=== PATIENT | female | born 1945 | race Caucasian/White ===

== ENCOUNTER 2020-01-30 08:34 | Outpatient (REF) | payer MEDICARE, SELFPAY ==
[2020-01-30 10:00] LABS: INTERNATIONAL NORM RATIO 3.3 (0.9-1.1); Prothrombin Time 39.8 SEC (10.8-13.0)
== END 2020-01-30 08:35 | disposition home or self-care (01) ==
LOC: HO.LABR 08:34
PROVIDERS: PCP Internal Medicine; Visit Provider Internal Medicine
DX: E11.9 Type 2 diabetes mellitus without complications (principal); M25.569 Pain in unspecified knee
CPT/HCPCS: 36415; 85610

== ENCOUNTER 2020-02-08 10:42 | Outpatient (REF) | payer MEDICARE, SELFPAY ==
[2020-02-08 14:07] LABS: INTERNATIONAL NORM RATIO 3.7 (0.9-1.1); Prothrombin Time 44.9 SEC (10.8-13.0)
[2020-02-08 14:34] LABS: Uric Acid 4.9 mg/dL (2.4-5.7)
--- NOTE | 2020-02-08 16:23 | MHC.HEMONC ---
pt INR seen by Dr Lerner. She had me instruct pt to hold Warfarin tonight and take 5mg on weekdays and 2.5 mg on weekends. Pt is aware.
== END 2020-02-08 10:43 | disposition home or self-care (01) ==
LOC: HO.10HDL 10:42
PROVIDERS: PCP Internal Medicine; Visit Provider Internal Medicine
DX: M25.569 Pain in unspecified knee (principal); E11.9 Type 2 diabetes mellitus without complications
CPT/HCPCS: 36415; 84550; 85610

== ENCOUNTER 2020-02-21 15:31 | Outpatient (REF) | payer MEDICARE, SELFPAY ==
[2020-02-21 16:24] LABS: Prothrombin Time 48.4 SEC (10.8-13.0)
== END 2020-02-21 15:32 | disposition home or self-care (01) ==
LOC: HO.LABR 15:31
PROVIDERS: PCP Internal Medicine; Visit Provider Internal Medicine
DX: E11.9 Type 2 diabetes mellitus without complications (principal)
CPT/HCPCS: 36415; 85610

== ENCOUNTER 2020-03-27 16:45 | Outpatient (REF) | payer MEDICARE, SELFPAY ==
[2020-03-27 17:23] LABS: INTERNATIONAL NORM RATIO 1.6 (0.9-1.1); Prothrombin Time 19.3 SEC (10.8-13.0)
== END 2020-03-27 16:46 | disposition home or self-care (01) ==
LOC: HO.LABR 16:45
PROVIDERS: PCP Internal Medicine; Visit Provider Internal Medicine
DX: E11.9 Type 2 diabetes mellitus without complications (principal)
CPT/HCPCS: 36415; 85610

== ENCOUNTER → 2020-04-04 13:48 | Outpatient (BNVA) | payer MEDICARE, SELFPAY | PROVIDERS: PCP Internal Medicine; Visit Provider Internal Medicine | DX: I82.409 Acute embolism and thrombosis of unspecified deep veins of unspecified lower extremity (principal); Z51.81 Encounter for therapeutic drug level monitoring; Z79.01 Long term (current) use of anticoagulants | CPT/HCPCS: 85610; 99201; 99211 ==

== ENCOUNTER → 2020-04-11 14:01 | Outpatient (BNVA) | payer MEDICARE, SELFPAY | PROVIDERS: PCP Internal Medicine; Visit Provider Internal Medicine | DX: I82.409 Acute embolism and thrombosis of unspecified deep veins of unspecified lower extremity (principal); Z51.81 Encounter for therapeutic drug level monitoring; Z79.01 Long term (current) use of anticoagulants | CPT/HCPCS: 85610; 99211 ==

== ENCOUNTER → 2020-04-18 14:10 | Outpatient (BNVA) | payer MEDICARE, SELFPAY | PROVIDERS: PCP Internal Medicine; Visit Provider Internal Medicine | DX: I82.409 Acute embolism and thrombosis of unspecified deep veins of unspecified lower extremity (principal); Z51.81 Encounter for therapeutic drug level monitoring; Z79.01 Long term (current) use of anticoagulants | CPT/HCPCS: 85610; 99211 ==

== ENCOUNTER → 2020-04-25 14:27 | Outpatient (BNVA) | payer MEDICARE, SELFPAY | PROVIDERS: PCP Internal Medicine; Visit Provider Internal Medicine | DX: I82.409 Acute embolism and thrombosis of unspecified deep veins of unspecified lower extremity (principal); Z51.81 Encounter for therapeutic drug level monitoring; Z79.01 Long term (current) use of anticoagulants | CPT/HCPCS: 85610; 99211 ==

== ENCOUNTER → 2020-05-09 14:12 | Outpatient (BNVA) | payer MEDICARE, SELFPAY | PROVIDERS: PCP Internal Medicine; Visit Provider Internal Medicine | DX: I82.409 Acute embolism and thrombosis of unspecified deep veins of unspecified lower extremity (principal); Z79.01 Long term (current) use of anticoagulants; Z51.81 Encounter for therapeutic drug level monitoring | CPT/HCPCS: 85610; 99211 ==

== ENCOUNTER 2020-05-23 13:33 | Outpatient (REF) | payer MEDICARE, SELFPAY | END 2020-05-23 13:34 | disposition home or self-care (01) | LOC: HO.LAB 13:33 | PROVIDERS: PCP Internal Medicine; Visit Provider Internal Medicine | DX: Z20.822 Contact with and (suspected) exposure to COVID-19 (principal); I82.409 Acute embolism and thrombosis of unspecified deep veins of unspecified lower extremity; Z51.81 Encounter for therapeutic drug level monitoring; Z79.01 Long term (current) use of anticoagulants | CPT/HCPCS: 36415; 85610; 99211; C9803; U0003 ==

== ENCOUNTER → 2020-06-06 13:30 | Outpatient (BNVA) | payer MEDICARE, SELFPAY | PROVIDERS: PCP Internal Medicine; Visit Provider Internal Medicine | DX: Z95.2 Presence of prosthetic heart valve (principal); Z51.81 Encounter for therapeutic drug level monitoring; Z79.01 Long term (current) use of anticoagulants | CPT/HCPCS: 85610; 99211 ==

== ENCOUNTER → 2020-06-27 13:43 | Outpatient (BNVA) | payer MEDICARE, SELFPAY | PROVIDERS: PCP Internal Medicine; Visit Provider Internal Medicine | DX: I82.409 Acute embolism and thrombosis of unspecified deep veins of unspecified lower extremity (principal); Z51.81 Encounter for therapeutic drug level monitoring; Z79.01 Long term (current) use of anticoagulants | CPT/HCPCS: 85610; 99211 ==

== ENCOUNTER 2020-07-04 08:07 | Outpatient (REF) | payer MEDICARE, SELFPAY ==
[2020-07-04 09:05] LABS: MANUAL DIFF FLAG NO
[2020-07-04 09:14] LABS: Basophils Percent Auto 0.2 % (0-2); Eosinophils Absolute Auto 0.1 X10*3/uL (0.0-0.4); Eosinophils Percent Auto 1.3 % (0-4); Hematocrit 41.1 % (37-47); Hemoglobin 13.6 g/dl (12.0-16.0); Imm Gran Abs Auto 0.02 X10*3/uL (0.00-0.03); Imm Gran Pct Auto 0.4 % (0.0-0.4); Lymphocytes Percent Auto 21.6 % (20-40); Mean Corpuscular HGB Conc 33.1 g/dl (31.0-35.0); Mean Corpuscular Hemoglobin 34.3 pg (27.0-33.0); Mean Corpuscular Volume 103.8 fL (80-98); Mean Platelet Volume 10.1 fL (9.4-12.3); Monocytes Absolute Auto 0.2 X10*3/uL (0.1-1.2); Monocytes Percent Auto 4.7 % (2-11); Neutrophils Absolute Auto 3.2 X10*3/uL (2.0-8.3); Neutrophils Percent Auto 71.8 % (45-73); Platelet Count 183 X10*3/uL (160-400); Red Blood Count 3.96 X10*6/uL (4.20-5.50); Red Cell Distribution Width 12.6 % (11.0-16.0); White Blood Count 4.5 X10*3/uL (4.8-10.8)
[2020-07-04 09:37] LABS: Alanine Aminotransferase 18 U/L (0-31); Alkaline Phosphatase 74 U/L (39-117); Anion Gap 12 (12-20); Aspartate Amino Transferase 14 U/L (5-31); Bilirubin Total 0.3 mg/dL (0.0-1.0); Blood Urea Nitrogen 24 mg/dL (9-16); Calcium 9.1 mg/dL (8.4-10.2); Carbon Dioxide 29 mmol/L (22-29); Chloride 105 mmol/L (96-108); Cholesterol 222 mg/dL; Estimated Glomerular Filt Rate 58; Glucose Fasting 128 mg/dL (60-99); HDL Cholesterol 64 mg/dL; LDL Cholesterol Calculated 130 mg/dl; Potassium 4.4 mmol/L (3.3-5.1); Sodium 142 mmol/L (135-145); Total Protein 6.7 g/dL (6.5-8.0); Triglycerides 144 mg/dL
== END 2020-07-04 08:08 | disposition home or self-care (01) ==
LOC: HO.LAB 08:07
PROVIDERS: PCP Internal Medicine; Visit Provider Internal Medicine
DX: Z00.00 Encounter for general adult medical examination without abnormal findings (principal); E11.9 Type 2 diabetes mellitus without complications; I82.409 Acute embolism and thrombosis of unspecified deep veins of unspecified lower extremity; Z51.81 Encounter for therapeutic drug level monitoring; Z79.01 Long term (current) use of anticoagulants
CPT/HCPCS: 36415; 80053; 80061; 85025; 85610; 99211

== ENCOUNTER → 2020-07-18 13:38 | Outpatient (BNVA) | payer MEDICARE, SELFPAY | PROVIDERS: PCP Internal Medicine; Visit Provider Internal Medicine | DX: I82.409 Acute embolism and thrombosis of unspecified deep veins of unspecified lower extremity (principal); Z51.81 Encounter for therapeutic drug level monitoring; Z79.01 Long term (current) use of anticoagulants | CPT/HCPCS: 85610; 99211 ==

== ENCOUNTER → 2020-08-01 13:20 | Outpatient (BNVA) | payer MEDICARE, SELFPAY | PROVIDERS: PCP Internal Medicine; Visit Provider Internal Medicine | DX: I82.409 Acute embolism and thrombosis of unspecified deep veins of unspecified lower extremity (principal); Z51.81 Encounter for therapeutic drug level monitoring; Z79.01 Long term (current) use of anticoagulants | CPT/HCPCS: 85610; 99211 ==

== ENCOUNTER → 2020-08-29 13:14 | Outpatient (BNVA) | payer MEDICARE, SELFPAY | PROVIDERS: PCP Internal Medicine; Visit Provider Internal Medicine | DX: I82.409 Acute embolism and thrombosis of unspecified deep veins of unspecified lower extremity (principal); Z51.81 Encounter for therapeutic drug level monitoring; Z79.01 Long term (current) use of anticoagulants | CPT/HCPCS: 85610; 99211 ==

== ENCOUNTER → 2020-09-12 13:28 | Outpatient (BNVA) | payer MEDICARE, SELFPAY | PROVIDERS: PCP Internal Medicine; Visit Provider Internal Medicine | DX: I82.409 Acute embolism and thrombosis of unspecified deep veins of unspecified lower extremity (principal); Z51.81 Encounter for therapeutic drug level monitoring; Z79.01 Long term (current) use of anticoagulants | CPT/HCPCS: 85610; 99211 ==

== ENCOUNTER → 2020-09-19 13:20 | Outpatient (BNVA) | payer MEDICARE, SELFPAY | PROVIDERS: PCP Internal Medicine; Visit Provider Internal Medicine | DX: I82.409 Acute embolism and thrombosis of unspecified deep veins of unspecified lower extremity (principal); Z51.81 Encounter for therapeutic drug level monitoring; Z79.01 Long term (current) use of anticoagulants | CPT/HCPCS: 85610; 99211 ==

== ENCOUNTER 2020-09-29 20:13 | Emergency (ER) | payer MEDICARE, SELFPAY ==
--- NOTE | ~2020-09-29 | CT_ITS ---
EXAMINATION: CT HEAD WITHOUT CONTRAST CLINICAL INFORMATION: Fall, hit head. On Coumadin. COMPARISON: CT head 08/25/2011 TECHNIQUE: Contiguous axial imaging was performed from the skull base to vertex without intravenous administration of contrast. This CT examination was performed using dose optimization techniques as appropriate, variously including the following: *Automated exposure control *Adjustment of mA and/or kV according to patient size (this includes techniques or standardized protocols for targeted exams where dose is matched to indication/reason for exam; i.e. extremities or head) *Use of iterative reconstruction technique DLP: 731 mGy-cm FINDINGS: There is no evidence of acute intracranial hemorrhage or territorial infarction. No abnormal mass effect or midline shift is seen. [place] to white matter differentiation is well preserved. No extra-axial fluid collections are identified. Mild patchy deep white matter hypodensities suggesting chronic microangiopathic changes. Mild cerebral volume loss. No acute calvarial fracture.. Small left maxillary sinus fluid/mucosal thickening. The mastoid air cells and remainder of the visualized portions of the paranasal sinuses are well aerated. CT/CT head/brain wo con IMPRESSION: No CT evidence acute intracranial pathology. Small left maxillary sinus fluid/mucosal thickening. Chronic changes, described above.
[2020-09-29 20:19] VITALS: BMI 36.2
[2020-09-29 20:27] VITALS: BP 190/77; PULSE 83; RESP 16; TEMP 37.1; O2SAT 96
--- NOTE | 2020-09-29 20:38 | ED_ITS ---
HPI - Fall General Chief Complaint: Fall Stated Complaint: FALL,+THINNERS,+COLLAR,LAC TO NOSE,HEMATOMA HEAD Time Seen by Provider: 09/29/20 20:38 Source: patient, EMS, RN notes reviewed and old records reviewed Mode of arrival: ambulatory Limitations: no limitations Related Data Home Medications Medication Instructions Recorded Confirmed cyanocobalamin (vitamin B-12) 1,000 mcg PO DAILY 02/03/20 09/12/20 1,000 mcg capsule multivitamin 1 tab PO DAILY 02/03/20 09/12/20 flu vacc [id number](65yr up)-PF 240 ml IM 04/04/20 09/12/20 mcg/0.7 mL intramuscular syringe Previous Rx's Medication Instructions Recorded lancing device #1 ea 02/10/20 ammonium lactate 12 % topical cream 1 applic TOPICAL BID #140 g 03/08/20 amlodipine 2.5 mg tablet 2.5 mg PO DAILY #90 tab 03/16/20 atorvastatin 40 mg tablet 40 mg PO DAILY #90 tab 03/16/20 furosemide 20 mg tablet 20 mg PO DAILY #90 tab 03/16/20 lisinopril 40 mg tablet 40 mg PO DAILY #90 tab 03/16/20 warfarin 1 mg tablet 1 mg PO DAILY #90 tab 04/11/20 phenytoin sodium extended 100 mg 300 mg PO BID #360 cap 05/03/20 capsule warfarin 5 mg PO DAILY #90 tab 06/22/20 clotrimazole-betamethasone 1 1 appl TOPICAL BID 14 Days #45 g 07/03/20 %-0.05 % topical cream glipizide 5 mg tablet 5 mg PO DAILY #90 tab 07/03/20 blood-glucose meter #1 ea 08/06/20 lancets #100 ea 08/06/20 cephalexin 250 mg capsule 250 mg PO Q6H #20 cap 09/11/20 Allergies Allergy/AdvReac Type Severity Reaction Status Date / Time shrimp [SHRIMP] Allergy Mild HIVES Verified 09/19/20 13:27 No Known Drug Allergies Allergy no Verified 09/19/20 13:27 allergies Review of Systems Review of Systems: Constitutional : No Weight loss, No Fever, No Chills, No Night Sweats, No Fatigue, No Malaise ENT/Mouth : No Hearing loss, No Ear Pain, No Nasal Congestion, No Sinus Pain, No Hoarseness, No sore throat, No Rhinorrhea, No Swallowing Difficulty, nose pain Eyes: No Eye Pain, No Swelling, No Redness, No Foreign Body, No Discharge, No Vision Changes Cardiovascular : No Chest Pain, No SOB, No Dyspnea on Exertion, No Orthopnea, No Edema, No Palpitations Respiratory : No Cough, No Sputum, No Wheezing, No Smoke Exposure, No Dyspnea Gastrointestinal : No Nausea, No Vomiting, No Diarrhea, No Constipation, No abdo alayna Pain, No Hematochezia, No Melena Genitourinary : no irregular bleeding, No Dysuria, No Urinary Frequency, No Hematuria, No Urinary Incontinence, No Urgency, No Flank Pain, No Urinary Flow Changes, No Hesitancy Musculoskeletal : No joint pain, No Myalgias, No Joint Swelling Skin : No Skin Lesions, No rash Neuro : No Weakness, No Numbness, No Paresthesias, No Loss of Consciousness, No Dizziness, No Headache Psych : No Anxiety/Panic, No Depression, No SI/HI/AH/VH, No Social Issues, Heme/Lymph: No Bruising, No Bleeding,No Lymphadenopathy Endocrine : No Polyuria, No Polydipsia, No Temperature Intolerance Yes all other systems are reviewed and are negative PMFSH Past Medical History Surgical History History of appendectomy History of cholecystectomy History of lumpectomy of right breast Family History Family History Father Asthma Mother Diabetes Hypertension Colon cancer Social History Social History Alcohol intake: never Patient Tobacco Use Status: Never used Tobacco Use of substances other than those prescribed or required for medical reasons: No Advance Directives: Yes Advance Directives on File: Yes Advance Directives Date on File: 02/08/20 Physical Exam Vital Signs: Vital Signs: Last Vital Signs Temp 98.7 F 09/29/20 20:27 Pulse 78 09/29/20 21:20 Resp 19 09/29/20 21:20 BP 179/65 H 09/29/20 21:20 Pulse Ox 97 09/29/20 21:20 Body Mass Index 36.2 Const: General: healthy appearing, no acute distress and well developed Nutritional Appearance: well nourished Orientation/consciousness: patient oriented x3 HENMT: Head: Yes normal to inspection and Yes other Head images: 1. Bruise 2. Bruise Neck: Neck: Yes normal visual inspection, Yes full ROM and Yes trachea midline Thyroid: Thyroid normal Resp: Auscultation: clear to auscultation bilaterally Cardio: Rate: regular rate Rhythm: regular rhythm GI: Inspection: Yes normal to inspection and No distended Palpation (GI): No hepatosplenomegaly present Auscultation: normal bowel sounds Skin: General skin exam: elasticity normal, turgor normal and dry skin Neuro: General: patient oriented x3 Course Course Course Narrative: 74-year-old female here today after sustaining a fall. Patient reports that she tripped when walking into IM has seen all today. She states that her foot gets stuck on the floor and she fell forward. Patient hit her nose, bridge of her nose and her for her. She also script her knee. Patient reports that she is on warfarin denies any dizziness, syncope, presyn cope, CP, PND. Denies any other symptoms. Patient was ambulated in the ER and is able to ambulated with steady gait, denies any dizziness. Neuro is intact. Will do CT of the head to rule out any bleed, as patient is on Coumadin. Reevaluation(s) Reevaluation #1: CT scan negative for any abnormal findings. Patient denies any pain, discomfort, dizziness, weakness. Neuro's are intact. I will send her home to follow-up with her PCP. Patient was instructed to monitor herself for any symptoms of concussion. MDM - Fall Lab Data Labs: Lab Results 09/29/20 Range/Units 21:22 Urine Color YELLOW Urine Appearance CLEAR Urine pH 6.5 (5.0-8.0) Ur Specific [place] 1.010 (1.005-1.025) Urine Protein NEG (NEG-TRACE) MG/DL Urine Glucose (UA) NEG (NEG) MG/DL Urine Ketones NEG (NEG) MG/DL Urine Blood 2+ H (NEG) Urine Nitrite NEG (NEG) Ur Leukocyte Esterase NEG (NEG) Urine RBC 10-14 H (0) /HPF Urine WBC 0-2 (0-4) /HPF Ur Squamous Epith Cells TRACE /LPF Urine Bacteria NONE /LPF Discharge Plan Discharge Clinical Impression: Fall, Current use of anticoagulant therapy Knee pain Qualifiers: Chronicity: acute Laterality: right Qualified Code(s): M25.561 - Pain in right knee Patient Disposition: Home, Self-Care Instructions: Fall Prevention (ED) Additional Instructions: You were seen here today after sustaining fall. You hit to head and sustained small bruise. Your CT scan was negative for any abnormal findings. Please follow-up with your primary care doctor in 2-3 days. Monitor yourself for any signs and symptoms of concussion. If you experience any symptoms of dizziness, weakness, blurry vision or headaches please return to emergency department. You may return to emergency department if you experience any additional concerning symptoms. Please take Tylenol for pain and you may apply ice for the next 72 hours. Prescriptions: No Action (DME) lancing device Misc See Rx Instructions .ROUTE .MEDSUPPLY Qty: 1 RF: 8 ammonium lactate 12 % cream 1 applic topical BID Qty: 140 RF: 6 atorvastatin 40 mg tablet 40 mg PO DAILY Qty: 90 RF: 8 lisinopril 40 mg tablet 40 mg PO DAILY Qty: 90 RF: 8 amlodipine 2.5 mg tablet 2.5 mg PO DAILY Qty: 90 RF: 8 furosemide 20 mg tablet 20 mg PO DAILY Qty: 90 RF: 8 phenytoin sodium extended 100 mg capsule 300 mg PO BID Qty: 360 RF: 8 warfarin 5 mg tablet 5 mg PO DAILY Qty: 90 RF: 3 (DME) blood-glucose meter Misc See Rx Instructions .ROUTE .MEDSUPPLY Qty: 1 RF: 0 (DME) lancets [Accu-Chek Fastclix Lancet Drum] Misc See Rx Instructions .ROUTE .MEDSUPPLY Qty: 100 RF: 8 cephalexin 250 mg capsule 250 mg PO Q6H Qty: 20 RF: 0 multivitamin Tablet 1 tab PO DAILY RF: 0 cyanocobalamin (vitamin B-12) 1,000 mcg capsule 1,000 mcg PO DAILY RF: 0 clotrimazole-betamethasone 1-0.05 % cream 1 appl topical BID 14 Days Qty: 45 RF: 0 glipizide 5 mg tablet 5 mg PO DAILY Qty: 90 RF: 8 Fluzone HighDose Quad 20-21 PF 240 mcg/0.7 mL syringe IM RF: 0 warfarin 1 mg tablet 1 mg PO DAILY Qty: 90 RF: 0 Stand Alone Forms: Work/School Release Interventions: ED Discharge Assessment Last Done: 09/29/20 23:22 Discharge Date/Time: 09/29/20 23:24
[2020-09-29 21:20] VITALS: BP 179/65; PULSE 78; RESP 19; O2SAT 97
[2020-09-29 21:35] LABS: Glucose Urine UA NEG (NEG); Leukocyte Esterase Urine NEG (NEG); Nitrite Urine NEG (NEG); PH 6.5 (5.0-8.0); Urine Blood 2+ (NEG); Urine Ketones NEG (NEG); Urine Protein NEG (NEG-TRACE)
[2020-09-29 21:43] LABS: Appearance Urine CLEAR; Color Urine YELLOW
[2020-09-29 21:56] LABS: WBC Urine 0-2 /HPF (0-4)
[2020-09-29 21:57] LABS: Squamous Epithelial Cell Urine TRACE /LPF
== END 2020-09-29 23:24 | disposition home or self-care (01) ==
PROVIDERS: Nurse Practitioner Family; Emergency Provider Emergency Medicine; PCP Internal Medicine
DX: M25.561 Pain in right knee (principal); G44.309 Post-traumatic headache, unspecified, not intractable; Z79.01 Long term (current) use of anticoagulants; Z79.899 Other long term (current) drug therapy
CPT/HCPCS: 70450; 81001; 99284

== ENCOUNTER → 2020-10-17 12:47 | Outpatient (BNVA) | payer MEDICARE, SELFPAY | PROVIDERS: PCP Internal Medicine; Visit Provider Internal Medicine | DX: I82.409 Acute embolism and thrombosis of unspecified deep veins of unspecified lower extremity (principal); Z51.81 Encounter for therapeutic drug level monitoring; Z79.01 Long term (current) use of anticoagulants | CPT/HCPCS: 85610; 99211 ==

== ENCOUNTER → 2020-11-14 13:03 | Outpatient (BNVA) | payer MEDICARE, SELFPAY | PROVIDERS: PCP Internal Medicine; Visit Provider Internal Medicine | DX: I82.409 Acute embolism and thrombosis of unspecified deep veins of unspecified lower extremity (principal); Z51.81 Encounter for therapeutic drug level monitoring; Z79.01 Long term (current) use of anticoagulants | CPT/HCPCS: 85610; 99211 ==

== ENCOUNTER → 2020-12-05 13:03 | Outpatient (BNVA) | payer MEDICARE, SELFPAY | PROVIDERS: PCP Internal Medicine; Visit Provider Internal Medicine | DX: I82.409 Acute embolism and thrombosis of unspecified deep veins of unspecified lower extremity (principal); Z51.81 Encounter for therapeutic drug level monitoring; Z79.01 Long term (current) use of anticoagulants | CPT/HCPCS: 85610; 99211 ==

== ENCOUNTER → 2021-01-02 13:02 | Outpatient (BNVA) | payer MEDICARE, SELFPAY | PROVIDERS: PCP Internal Medicine; Visit Provider Internal Medicine | DX: I82.409 Acute embolism and thrombosis of unspecified deep veins of unspecified lower extremity (principal); Z51.81 Encounter for therapeutic drug level monitoring; Z79.01 Long term (current) use of anticoagulants | CPT/HCPCS: 85610; 99211 ==

== ENCOUNTER → 2021-01-16 11:05 | Outpatient (BNVA) | payer MEDICARE, SELFPAY | PROVIDERS: PCP Internal Medicine; Visit Provider Internal Medicine | DX: I82.409 Acute embolism and thrombosis of unspecified deep veins of unspecified lower extremity (principal); Z51.81 Encounter for therapeutic drug level monitoring; Z79.01 Long term (current) use of anticoagulants | CPT/HCPCS: 85610; 99211 ==

== ENCOUNTER 2021-01-16 11:19 | Outpatient (REF) | payer MEDICARE, SELFPAY | END 2021-01-16 11:20 | disposition home or self-care (01) | LOC: HO.LAB 11:19 | PROVIDERS: PCP Internal Medicine; Visit Provider Internal Medicine | DX: Z20.822 Contact with and (suspected) exposure to COVID-19 (principal) | CPT/HCPCS: C9803; U0003; U0005 ==

== ENCOUNTER → 2021-02-13 13:09 | Outpatient (BNVA) | payer MEDICARE, SELFPAY | PROVIDERS: PCP Internal Medicine; Visit Provider Internal Medicine | DX: I82.409 Acute embolism and thrombosis of unspecified deep veins of unspecified lower extremity (principal); Z51.81 Encounter for therapeutic drug level monitoring; Z79.01 Long term (current) use of anticoagulants | CPT/HCPCS: 85610; 99211 ==

== ENCOUNTER 2021-02-20 08:06 | Outpatient (REF) | payer MEDICARE, SELFPAY ==
[2021-02-20 08:23] LABS: MANUAL DIFF FLAG NO
[2021-02-20 08:54] LABS: Basophils Percent Auto 0.2 % (0-2); Eosinophils Absolute Auto 0.1 X10*3/uL (0.0-0.4); Eosinophils Percent Auto 1.4 % (0-4); Hematocrit 40.3 % (37-47); Hemoglobin 13.1 g/dl (12.0-16.0); Imm Gran Abs Auto 0.02 X10*3/uL (0.00-0.03); Imm Gran Pct Auto 0.5 % (0.0-0.4); Lymphocytes Absolute Auto 0.9 X10*3/uL (1.2-4.9); Lymphocytes Percent Auto 19.8 % (20-40); Mean Corpuscular HGB Conc 32.5 g/dl (31.0-35.0); Mean Corpuscular Hemoglobin 33.8 pg (27.0-33.0); Mean Corpuscular Volume 103.9 fL (80-98); Mean Platelet Volume 9.5 fL (9.4-12.3); Monocytes Absolute Auto 0.2 X10*3/uL (0.1-1.2); Monocytes Percent Auto 5.3 % (2-11); Neutrophils Absolute Auto 3.1 X10*3/uL (2.0-8.3); Neutrophils Percent Auto 72.8 % (45-73); Platelet Count 177 X10*3/uL (160-400); Red Blood Count 3.88 X10*6/uL (4.20-5.50); Red Cell Distribution Width 13.4 % (11.0-16.0); White Blood Count 4.3 X10*3/uL (4.8-10.8)
[2021-02-20 09:03] LABS: Estimated Average Glucose 105 mg/dL; Hemoglobin A1c % 5.3 %
[2021-02-20 09:17] LABS: Alanine Aminotransferase 19 U/L (0-31); Albumin Level 3.7 g/dL (3.5-5.0); Alkaline Phosphatase 73 U/L (39-117); Anion Gap 12 (12-20); Aspartate Amino Transferase 15 U/L (5-31); Bilirubin Total 0.4 mg/dL (0.0-1.0); Blood Urea Nitrogen 20 mg/dL (9-16); Calcium 8.7 mg/dL (8.4-10.2); Carbon Dioxide 29 mmol/L (22-29); Chloride 106 mmol/L (96-108); Cholesterol 185 mg/dL; Estimated Glomerular Filt Rate > 60; Glucose Fasting 118 mg/dL (60-99); HDL Cholesterol 55 mg/dL; LDL Cholesterol Calculated 113 mg/dl; Potassium 4.6 mmol/L (3.3-5.1); Sodium 142 mmol/L (135-145); Total Protein 6.2 g/dL (6.5-8.0); Triglycerides 86 mg/dL
[2021-02-20 09:36] LABS: Thyroid Stimulating Hormone 3.11 uIU/mL (0.32-4.0)
[2021-02-20 10:19] LABS: Creatinine Urine 25.94 mg/dL; Microalbum/Creatinine Ratio Ur 362.3 ug/mg cr
== END 2021-02-20 08:07 | disposition home or self-care (01) ==
LOC: HO.LAB 08:06
PROVIDERS: PCP Internal Medicine; Visit Provider Internal Medicine
DX: Z00.00 Encounter for general adult medical examination without abnormal findings (principal); E03.9 Hypothyroidism, unspecified; E11.9 Type 2 diabetes mellitus without complications
CPT/HCPCS: 36415; 80053; 80061; 82043; 83036; 84443; 85025

== ENCOUNTER → 2021-03-27 13:45 | Outpatient (BNVA) | payer MEDICARE, SELFPAY | PROVIDERS: PCP Internal Medicine; Visit Provider Internal Medicine | DX: I82.409 Acute embolism and thrombosis of unspecified deep veins of unspecified lower extremity (principal); Z51.81 Encounter for therapeutic drug level monitoring; Z79.01 Long term (current) use of anticoagulants | CPT/HCPCS: 85610; 99211 ==

== ENCOUNTER 2021-05-22 09:22 | Outpatient (REF) | payer MEDICARE, SELFPAY ==
[2021-05-22 09:42] LABS: Binax Internal Control QC Valid; Binax Now Covid-19 Ag Negative (Negative)
== END 2021-05-22 09:23 | disposition home or self-care (01) ==
LOC: HO.LAB 09:22
PROVIDERS: PCP Internal Medicine; Visit Provider Internal Medicine
DX: Z20.822 Contact with and (suspected) exposure to COVID-19 (principal)
CPT/HCPCS: C9803

== ENCOUNTER → 2021-05-28 13:09 | Outpatient (BNVA) | payer MEDICARE, SELFPAY | PROVIDERS: PCP Internal Medicine; Visit Provider Internal Medicine | DX: I82.409 Acute embolism and thrombosis of unspecified deep veins of unspecified lower extremity (principal); Z51.81 Encounter for therapeutic drug level monitoring; Z79.01 Long term (current) use of anticoagulants | CPT/HCPCS: 85610; 99211 ==

== ENCOUNTER → 2021-06-25 13:02 | Outpatient (BNVA) | payer MEDICARE, SELFPAY | PROVIDERS: PCP Internal Medicine; Visit Provider Internal Medicine | DX: I82.409 Acute embolism and thrombosis of unspecified deep veins of unspecified lower extremity (principal); Z51.81 Encounter for therapeutic drug level monitoring; Z79.01 Long term (current) use of anticoagulants | CPT/HCPCS: 85610; 99211 ==

== ENCOUNTER → 2021-07-23 12:51 | Outpatient (BNVA) | payer MEDICARE, SELFPAY | PROVIDERS: PCP Internal Medicine; Visit Provider Internal Medicine | DX: I82.409 Acute embolism and thrombosis of unspecified deep veins of unspecified lower extremity (principal); Z51.81 Encounter for therapeutic drug level monitoring; Z79.01 Long term (current) use of anticoagulants | CPT/HCPCS: 85610; 99211 ==

== ENCOUNTER → 2021-08-15 13:11 | Outpatient (BNVA) | payer MEDICARE, SELFPAY | PROVIDERS: PCP Internal Medicine; Visit Provider Internal Medicine | DX: I82.409 Acute embolism and thrombosis of unspecified deep veins of unspecified lower extremity (principal); Z79.01 Long term (current) use of anticoagulants; Z51.81 Encounter for therapeutic drug level monitoring | CPT/HCPCS: 85610; 99211 ==

== ENCOUNTER → 2021-08-22 13:24 | Outpatient (BNVA) | payer MEDICARE, SELFPAY | PROVIDERS: PCP Internal Medicine; Visit Provider Internal Medicine | DX: I82.409 Acute embolism and thrombosis of unspecified deep veins of unspecified lower extremity (principal); Z79.01 Long term (current) use of anticoagulants; Z51.81 Encounter for therapeutic drug level monitoring | CPT/HCPCS: 85610; 99211 ==

== ENCOUNTER 2021-09-02 21:04 | Emergency (ER) | payer MEDICARE, SELFPAY ==
--- NOTE | ~2021-09-02 | CT_ITS ---
EXAMINATION: CT BRAIN AND CT CERVICAL SPINE WITHOUT CONTRAST. CLINICAL INFORMATION: Status post fall. COMPARISON: CT brain 09/29/2020 TECHNIQUE: 5 mm thin axial and reformatted 2 mm thin sagittal coronal images of brain were obtained without contrast. Subsequently axial 3 mm thin and reformatted 2 mm thin sagittal coronal images of cervical spine were obtained. DLP 2287 mGy/cm. FINDINGS: Brain: There is no acute intra-axial, extra-axial bleed, masses or midline shift. There is no acute infarction evolution. There is no edema. The lateral ventricles are symmetrical in size but enlarged. There is moderate prominence of bilateral frontal cortical sulci. Bone windows reveal no calvarial abnormality. There is no scalp soft tissue abnormality. There is benign hyper ostosis frontalis interna. There is mucoperiosteal thickening of bilateral maxillary sinuses. Rest of the paranasal sinuses are well-aerated. Cervical spine: There is mild reversal of cervical lordosis. The vertebral heights and alignment is normal. There is loss of C5-C6 and C6-C7 and C7-T1 disc heights. The craniovertebral junction and the C1-C2 alignment is normal. No visible acute fracture, dislocation or subluxation seen. The prevertebral and paravertebral soft tissues are normal. There is widely patent. There is no neck mass or abnormal lymphadenopathy. Visualized bilateral parotid and submandibular glands are normal. CT/CT cervical spine wo con IMPRESSION: No acute intracranial process seen. Reversal of cervical lordosis likely spasm. There is a grade 1 anterolisthesis C5 over C6, C6 over C7 and C7 over T1 disc levels with mild degenerative disc changes and cervical spondylosis at the C5-C6 and C6-C7 disc levels.
--- NOTE | ~2021-09-02 | XR_ITS ---
EXAMINATION: XR CHEST CLINICAL INFORMATION: Fall. Fever. COMPARISON: None TECHNIQUE: Frontal view of the chest was obtained. FINDINGS: The cardiac and mediastinal contours are normal. The lungs are clear. There is no pleural effusion or pneumothorax. There are degenerative changes of the spine. XR/XR chest 1V IMPRESSION: No evidence for acute disease in the chest.
--- NOTE | ~2021-09-02 | CT_ITS ---
EXAMINATION: CT BRAIN AND CT CERVICAL SPINE WITHOUT CONTRAST. CLINICAL INFORMATION: Status post fall. COMPARISON: CT brain 09/29/2020 TECHNIQUE: 5 mm thin axial and reformatted 2 mm thin sagittal coronal images of brain were obtained without contrast. Subsequently axial 3 mm thin and reformatted 2 mm thin sagittal coronal images of cervical spine were obtained. DLP 2287 mGy/cm. FINDINGS: Brain: There is no acute intra-axial, extra-axial bleed, masses or midline shift. There is no acute infarction evolution. There is no edema. The lateral ventricles are symmetrical in size but enlarged. There is moderate prominence of bilateral frontal cortical sulci. Bone windows reveal no calvarial abnormality. There is no scalp soft tissue abnormality. There is benign hyper ostosis frontalis interna. There is mucoperiosteal thickening of bilateral maxillary sinuses. Rest of the paranasal sinuses are well-aerated. Cervical spine: There is mild reversal of cervical lordosis. The vertebral heights and alignment is normal. There is loss of C5-C6 and C6-C7 and C7-T1 disc heights. The craniovertebral junction and the C1-C2 alignment is normal. No visible acute fracture, dislocation or subluxation seen. The prevertebral and paravertebral soft tissues are normal. There is widely patent. There is no neck mass or abnormal lymphadenopathy. Visualized bilateral parotid and submandibular glands are normal. CT/CT head/brain wo con IMPRESSION: No acute intracranial process seen. Reversal of cervical lordosis likely spasm. There is a grade 1 anterolisthesis C5 over C6, C6 over C7 and C7 over T1 disc levels with mild degenerative disc changes and cervical spondylosis at the C5-C6 and C6-C7 disc levels.
[2021-09-02 21:11] VITALS: BP 130/84; PULSE 107; O2SAT 97
--- NOTE | 2021-09-02 21:15 | ED_ITS ---
HPI - Fall General Chief Complaint: Fall Stated Complaint: fall Time Seen by Provider: 09/02/21 21:14 Source: patient Mode of arrival: ambulatory Limitations: no limitations History of Present Illness HPI Narrative: Patient with protein C deficiency with history of left leg DVT on Coumadin had apparently mechanical fall at home landed on her stomach no head strike no loss of consciousness no seizures came here to be checked because of the fall also patient has slight cough since yesterday on arrival patient noticed to have temperature of 101.5 degrees saturating 95% on room air. No headache no neck pain no other body pain no chest pain or palpitation patient already has received her COVID vaccine including the booster dose Related Data Home Medications Medication Instructions Recorded Confirmed cyanocobalamin (vitamin B-12) 1,000 mcg PO DAILY 02/03/20 07/23/21 1,000 mcg capsule multivitamin 1 tab PO DAILY 02/03/20 07/23/21 Previous Rx's Medication Instructions Recorded lancing device #1 ea 02/10/20 ammonium lactate 12 % topical cream 1 applic TOPICAL BID #140 g 03/08/20 warfarin 1 mg tablet 1 mg PO DAILY #90 tab 04/11/20 blood-glucose meter #1 ea 08/06/20 lancets (Accu-Chek Fastclix Lancet #100 ea 02/11/21 Drum) furosemide 20 mg tablet 20 mg PO DAILY #90 tab 04/01/21 lisinopril 40 mg tablet 40 mg PO DAILY #90 tab 04/01/21 amlodipine 5 mg tablet 5 mg PO DAILY #90 tab 04/10/21 benzonatate 100 mg capsule 100 mg PO TID PRN #60 cap 04/11/21 clotrimazole-betamethasone 1 1 appl TOPICAL BID 14 Days #45 g 04/11/21 %-0.05 % topical cream atorvastatin 40 mg tablet 40 mg PO DAILY #90 tab 06/17/21 phenytoin sodium extended 100 mg 300 mg PO BID #360 cap 06/17/21 capsule glipizide 5 mg tablet 5 mg PO DAILY #90 tab 07/08/21 warfarin 5 mg tablet 5 mg PO DAILY #90 tab 08/02/21 benzonatate 200 mg capsule 200 mg PO TID PRN #20 cap 09/02/21 cephalexin 500 mg capsule 500 mg PO QID 10 Days #40 cap 09/02/21 doxycycline hyclate 100 mg tablet 100 mg PO BID #20 tab 09/02/21 Allergies Allergy/AdvReac Type Severity Reaction Status Date / Time shrimp [SHRIMP] Allergy Mild HIVES Verified 08/22/21 13:26 Review of Systems Review of Systems: Yes all other systems are reviewed and are negative [facility] Past Medical History Medical History Diabetes mellitus with coincident hypertension Hyperlipidemia Hypertension Surgical History History of appendectomy History of cholecystectomy History of lumpectomy of right breast Family History Family History Father Asthma Mother Diabetes Hypertension Colon cancer Other Substance use disorder Social History Social History Housing: House Alcohol intake: never Patient Tobacco Use Status: Never used Tobacco e-Cigarette/Vaping Use: Never Used Second Hand Smoke Exposure: No Advance Directives: Yes Advance Directives Information Provided: Yes Advance Directives on File: No Advance Directives Date on File: 02/08/20 service: No Current occupational status: employed Cognitive needs: No Hearing needs: No Vision needs: No Physical Exam Vital Signs: Vital Signs: Last Vital Signs Temp 101.5 F H 09/02/21 21:20 Pulse 92 09/02/21 23:40 Resp 15 09/02/21 23:40 BP 168/65 H 09/02/21 21:20 Pulse Ox 97 09/02/21 23:40 BMI result Body Mass Index 44.3 Appearance: Alert. Oriented X3. No acute distress. Eyes: No pallor HEENT: Pharynx normal. Oral Mucosa moist atraumatic normocephalic Neck: Normal inspection. Neck supple. No midline tenderness CVS: Normal heart rate and rhythm. Pulses normal. Respiratory: No respiratory distress. Equal air entry bilateral, no wheezing/rales/rhonchi Abdomen: Soft and nontender. Bowel sounds are present, no mass palpable, no CVA tenderness Skin: Skin warm and dry. Normal skin color. Normal skin turgor. Extremities: No lower extremity edema. No calf tenderness left leg chronic changes of poor circulation the left leg with dry old wound diffuse warmth of the left leg around that area with slight redness pelvis stable Neuro: Oriented X 3. No motor deficit. MDM - Fall MDM Narrative Medical decision making narrative: Patient status post mechanical fall workup negative for any acute bleed/ head injury instantly noticed to have fever lab workup showed normal WBC count normal lactic acid COVID-19 negative chest x-ray without any infiltrate has slight cellulitis of left leg patient was giving Zosyn and vancomycin in the ER will discharge patient home on doxycycline and Keflex advised patient of social distancing drink plenty of fluids and follow with PCP Lab Data Attestation: I reviewed the patient's lab results. Result diagrams: 09/02/21 22:16 09/02/21 22:16 Labs: Lab Results 09/02/21 09/02/21 09/02/21 Range/Units 22:16 22:16 22:16 WBC 6.7 (4.8-10.8) X10*3/uL RBC 3.55 L (4.20-5.50) X10*6/uL Hgb 12.0 (12.0-16.0) g/dl Hct 36.2 L (37.0-47.0) % MCV 102.0 H (80.0-98.0) fL MCH 33.8 H (27.0-33.0) pg MCHC 33.1 (31.0-35.0) g/dl RDW 12.8 (11.0-16.0) % Plt Count 134 L (160-400) X10*3/uL MPV 9.6 (9.4-12.3) fL Immature Gran % (Auto) 0.4 (0.0-0.4) % Neut % (Auto) 81.3 H (45-73) % Lymph % (Auto) 8.5 L (20-40) % [place] % (Auto) 9.6 (2-11) % Eos % (Auto) 0.1 (0-4) % Baso % (Auto) 0.1 (0-2) % Lymph # (Auto) 0.6 L (1.2-4.9) X10*3/uL [place] # (Auto) 0.6 (0.1-1.2) X10*3/uL Eos # (Auto) 0.0 (0.0-0.4) X10*3/uL Baso # (Auto) 0.0 (0.0-0.2) X10*3/uL Abs Immat Gran (auto) 0.03 (0.00-0.03) X10*3/uL Absolute Neuts (auto) 5.4 (2.0-8.3) x10*3/uL Absolute Nucleated RBC 0.000 (0.0-0.012) X10*3/uL Nucleated RBC % (auto) 0.0 (0.0-0.2) /100WBC PT 41.2 H (9.9-13.0) SEC INR 3.5 H (0.9-1.1) APTT 42.5 H (24.1-38.0) SEC Sodium 138 (135-145) mmol/L Potassium 3.9 (3.3-5.1) mmol/L Chloride 102 (96-108) mmol/L Carbon Dioxide 26 (22-29) mmol/L Anion Gap 14 (12-20) BUN 15 (9-16) mg/dL Creatinine 0.78 (0.5-1.4) mg/dL Estim Creat Clear Calc 71.1 Estimated GFR > 60 Random Glucose 129 H (60-115) mg/dL Lactic Acid (0.5-2.0) mmol/L Calcium 8.6 (8.4-10.2) mg/dL Total Bilirubin 0.4 (0.0-1.0) mg/dL AST 22 D (5-31) U/L ALT 24 (0-31) U/L Alkaline Phosphatase 60 (39-117) U/L Total Protein 6.2 L (6.5-8.0) g/dL Albumin 3.6 (3.5-5.0) g/dL Urine Color Urine Appearance Urine pH (5.0-8.0) Ur Specific [place] (1.005-1.025) Urine Protein (NEG-TRACE) MG/DL Urine Glucose (UA) (NEG) MG/DL Urine Ketones (NEG) MG/DL Urine Blood (NEG) Urine Nitrite (NEG) Ur Leukocyte Esterase (NEG) Urine RBC (0) /HPF Urine WBC (0-4) /HPF Ur Squamous Epith Cells /LPF Urine Bacteria /LPF Urine Mucus /LPF COVID-19 ([place]) (Negative) COVID-19 Clin Com 09/02/21 09/02/21 09/02/21 Range/Units 22:16 22:16 22:30 WBC (4.8-10.8) X10*3/uL RBC (4.20-5.50) X10*6/uL Hgb (12.0-16.0) g/dl Hct (37.0-47.0) % MCV (80.0-98.0) fL MCH (27.0-33.0) pg MCHC (31.0-35.0) g/dl RDW (11.0-16.0) % Plt Count (160-400) X10*3/uL MPV (9.4-12.3) fL Immature Gran % (Auto) (0.0-0.4) % Neut % (Auto) (45-73) % Lymph % (Auto) (20-40) % [place] % (Auto) (2-11) % Eos % (Auto) (0-4) % Baso % (Auto) (0-2) % Lymph # (Auto) (1.2-4.9) X10*3/uL [place] # (Auto) (0.1-1.2) X10*3/uL Eos # (Auto) (0.0-0.4) X10*3/uL Baso # (Auto) (0.0-0.2) X10*3/uL Abs Immat Gran (auto) (0.00-0.03) X10*3/uL Absolute Neuts (auto) (2.0-8.3) x10*3/uL Absolute Nucleated RBC (0.0-0.012) X10*3/uL Nucleated RBC % (auto) (0.0-0.2) /100WBC PT (9.9-13.0) SEC INR (0.9-1.1) APTT (24.1-38.0) SEC Sodium (135-145) mmol/L Potassium (3.3-5.1) mmol/L Chloride (96-108) mmol/L Carbon Dioxide (22-29) mmol/L Anion Gap (12-20) BUN (9-16) mg/dL Creatinine (0.5-1.4) mg/dL Estim Creat Clear Calc Estimated GFR Random Glucose (60-115) mg/dL Lactic Acid 1.5 (0.5-2.0) mmol/L Calcium (8.4-10.2) mg/dL Total Bilirubin (0.0-1.0) mg/dL AST (5-31) U/L ALT (0-31) U/L Alkaline Phosphatase (39-117) U/L Total Protein (6.5-8.0) g/dL Albumin (3.5-5.0) g/dL Urine Color YELLOW Urine Appearance CLEAR Urine pH 7.0 (5.0-8.0) Ur Specific [place] 1.015 (1.005-1.025) Urine Protein NEG (NEG-TRACE) MG/DL Urine Glucose (UA) NEG (NEG) MG/DL Urine Ketones NEG (NEG) MG/DL Urine Blood 2+ H (NEG) Urine Nitrite NEG (NEG) Ur Leukocyte Esterase NEG (NEG) Urine RBC 10-14 H (0) /HPF Urine WBC 1-4 (0-4) /HPF Ur Squamous Epith Cells 1+ /LPF Urine Bacteria 2+ /LPF Urine Mucus 1+ /LPF COVID-19 ([place]) Positive A (Negative) COVID-19 Clin Com See Note Discharge Plan Discharge Clinical Impression: COVID-19, Fall, Cellulitis of left leg Patient Disposition: Home, Self-Care Instructions: Cellulitis (ED), Fall Prevention (ED), COVID-19 (Coronavirus Disease 2019) (ED) Additional Instructions: Social distancing as advised Antibiotic as prescribed Tylenol for fever Cough drops as prescribed Follow with PCP or report to ER if not better or increased shortness of breath Prescriptions: New benzonatate 200 mg capsule 200 mg PO TID PRN (Reason: cough) Qty: 20 0RF cephalexin 500 mg capsule 500 mg PO QID 10 Days Qty: 40 0RF doxycycline hyclate 100 mg tablet 100 mg PO BID Qty: 20 0RF No Action (DME) lancing device Misc See Rx Instructions .ROUTE .MEDSUPPLY Qty: 1 8RF Rx Instructions: ACCU-CHECK DARLINE DEVICE ammonium lactate 12 % cream 1 applic topical BID Qty: 140 6RF (DME) blood-glucose meter Misc See Rx Instructions .ROUTE .MEDSUPPLY Qty: 1 0RF Rx Instructions: TEST 2 TIMES DAILY (DME) lancets [Accu-Chek Fastclix Lancet Drum] Misc See Rx Instructions .ROUTE .MEDSUPPLY Qty: 100 8RF Rx Instructions: Check blood sugars Twice a day lisinopril 40 mg tablet 40 mg PO DAILY Qty: 90 8RF furosemide 20 mg tablet 20 mg PO DAILY Qty: 90 8RF benzonatate 100 mg capsule 100 mg PO TID PRN (Reason: cough) Qty: 60 0RF clotrimazole-betamethasone 1-0.05 % cream 1 appl topical BID 14 Days Qty: 45 0RF atorvastatin 40 mg tablet 40 mg PO DAILY Qty: 90 8RF phenytoin sodium extended 100 mg capsule 300 mg PO BID Qty: 360 8RF glipizide 5 mg tablet 5 mg PO DAILY Qty: 90 8RF warfarin 5 mg tablet 5 mg PO DAILY Qty: 90 3RF Protocol: Dose Management Condition: Thursday (Week One) Dose/Route: 5 mg Instruction: 1 x 5 mg tablet Condition: Thursday Dose/Route: 5 mg Instruction: 1 x 5 mg tablet Condition: Thursday Dose/Route: 5 mg Instruction: 1 x 5 mg tablet Condition: Thursday Dose/Route: 5 mg Instruction: 1 x 5 mg tablet Condition: Dose/Route: 5 mg Instruction: 1 x 5 mg tablet Condition: Thursday Dose/Route: 5 mg Instruction: 1 x 5 mg tablet Condition: Thursday Dose/Route: 5 mg Instruction: 1 x 5 mg tablet Condition: Thursday (Week Two) Dose/Route: 5 mg Instruction: 1 x 5 mg tablet Condition: Thursday Dose/Route: 5 mg Instruction: 1 x 5 mg tablet Condition: Thursday Dose/Route: 5 mg Instruction: 1 x 5 mg tablet Condition: Thursday Dose/Route: 5 mg Instruction: 1 x 5 mg tablet Condition: Dose/Route: 5 mg Instruction: 1 x 5 mg tablet Condition: Thursday Dose/Route: 5 mg Instruction: 1 x 5 mg tablet Condition: Thursday Dose/Route: 5 mg Instruction: 1 x 5 mg tablet Protocol Text: Adjustment Start Date: 08/22/21 INR Value: 2.6 INR Date: 08/22/21 Recheck Date: 09/05/21 Additional Instructions: cont reg dosing eat greens 3 times a week call with any medication changes multivitamin Tablet 1 tab PO DAILY 0RF cyanocobalamin (vitamin B-12) 1,000 mcg capsule 1,000 mcg PO DAILY 0RF amlodipine 5 mg tablet 5 mg PO DAILY Qty: 90 8RF warfarin 1 mg tablet 1 mg PO DAILY Qty: 90 0RF Protocol: Dose Management Condition: Thursday (Week One) Dose/Route: 5 mg Instruction: 1 x 5 mg tablet Condition: Thursday Dose/Route: 5 mg Instruction: 1 x 5 mg tablet Condition: Thursday Dose/Route: 5 mg Instruction: 1 x 5 mg tablet Condition: Thursday Dose/Route: 5 mg Instruction: 1 x 5 mg tablet Condition: Dose/Route: 5 mg Instruction: 1 x 5 mg tablet Condition: Thursday Dose/Route: 5 mg Instruction: 1 x 5 mg tablet Condition: Thursday Dose/Route: 5 mg Instruction: 1 x 5 mg tablet Condition: Thursday (Week Two) Dose/Route: 5 mg Instruction: 1 x 5 mg tablet Condition: Thursday Dose/Route: 5 mg Instruction: 1 x 5 mg tablet Condition: Thursday Dose/Route: 5 mg Instruction: 1 x 5 mg tablet Condition: Thursday Dose/Route: 5 mg Instruction: 1 x 5 mg tablet Condition: Dose/Route: 5 mg Instruction: 1 x 5 mg tablet Condition: Thursday Dose/Route: 5 mg Instruction: 1 x 5 mg tablet Condition: Thursday Dose/Route: 5 mg Instruction: 1 x 5 mg tablet Protocol Text: Adjustment Start Date: 08/22/21 INR Value: 2.6 INR Date: 08/22/21 Recheck Date: 09/05/21 Additional Instructions: cont reg dosing eat greens 3 times a week call with any medication changes Interventions: ED Discharge Assessment Last Done: 09/02/21 23:54 Discharge Date/Time: 09/03/21 00:02
[2021-09-02 21:20] VITALS: BP 168/65; PULSE 102; RESP 18; TEMP 38.6; O2SAT 95
[2021-09-02 21:23] VITALS: RESP 15; BMI 44.3
--- NOTE | 2021-09-02 21:40 | ECG_ITS ---
Test Reason : FAL Blood Pressure : / mmHG Vent. Rate : 097 BPM Atrial Rate : 097 BPM P-R Int : 146 ms QRS Dur : 092 ms QT Int : 362 ms P-R-T Axes : -07 126 030 degrees QTc Int : 459 ms Normal sinus rhythm Inferior-posterior infarct , age undetermined Abnormal ECG No previous ECGs available Referred By: Cortez Cassidy Electronically Signed By:CHANDRIKA MOSLEY MD
[2021-09-02 22:07] VITALS: RESP 15
[2021-09-02 22:21] LABS: MANUAL DIFF FLAG NO
[2021-09-02 22:27] LABS: Imm Gran Abs Auto 0.03 X10*3/uL (0.00-0.03); PLT CLUMP 1; Red Cell Distribution Width 12.8 % (11.0-16.0); SCAN SMEAR FLAG 1
[2021-09-02 22:29] LABS: Basophils Percent Auto 0.1 % (0-2); Eosinophils Percent Auto 0.1 % (0-4); Hematocrit 36.2 % (37.0-47.0); Imm Gran Pct Auto 0.4 % (0.0-0.4); Lymphocytes Absolute Auto 0.6 X10*3/uL (1.2-4.9); Lymphocytes Percent Auto 8.5 % (20-40); Mean Corpuscular HGB Conc 33.1 g/dl (31.0-35.0); Mean Corpuscular Hemoglobin 33.8 pg (27.0-33.0); Mean Platelet Volume 9.6 fL (9.4-12.3); Monocytes Absolute Auto 0.6 X10*3/uL (0.1-1.2); Monocytes Percent Auto 9.6 % (2-11); Neutrophils Absolute Auto 5.4 x10*3/uL (2.0-8.3); Neutrophils Percent Auto 81.3 % (45-73); Red Blood Count 3.55 X10*6/uL (4.20-5.50)
[2021-09-02 22:30] LABS: Platelet Count 134 X10*3/uL (160-400); White Blood Count 6.7 X10*3/uL (4.8-10.8)
[2021-09-02 22:34] LABS: COVID-19 Test Positive (Negative); IDNOW Serial# 9DB6401D; Lactic Acid 1.5 mmol/L (0.5-2.0)
[2021-09-02 22:35] LABS: INTERNATIONAL NORM RATIO 3.5 (0.9-1.1); Prothrombin Time 41.2 SEC (9.9-13.0)
[2021-09-02] MEDS: 0.9 % Sodium Chloride 1,000 ML 999 ML IV (22:36)
[2021-09-02] MEDS: Piperacillin Sodium/Tazobactam 3.375 GM in 0.9 % Sodium Chloride 50 ML IV (22:37)
[2021-09-02 22:38] LABS: Partial Thromboplastin Time 42.5 SEC (24.1-38.0)
[2021-09-02 22:39] LABS: Alanine Aminotransferase 24 U/L (0-31); Albumin Level 3.6 g/dL (3.5-5.0); Alkaline Phosphatase 60 U/L (39-117); Anion Gap 14 (12-20); Aspartate Amino Transferase 22 U/L (5-31); Bilirubin Total 0.4 mg/dL (0.0-1.0); Blood Urea Nitrogen 15 mg/dL (9-16); Calcium 8.6 mg/dL (8.4-10.2); Carbon Dioxide 26 mmol/L (22-29); Chloride 102 mmol/L (96-108); Creatinine Clr Calc Pharmacy 71.1; Estimated Glomerular Filt Rate > 60; Glucose Random 129 mg/dL (60-115); Potassium 3.9 mmol/L (3.3-5.1); Sodium 138 mmol/L (135-145); Total Protein 6.2 g/dL (6.5-8.0)
[2021-09-02 22:45] LABS: Appearance Urine CLEAR; Color Urine YELLOW; Glucose Urine UA NEG (NEG); Leukocyte Esterase Urine NEG (NEG); Nitrite Urine NEG (NEG); Specific Gravity - Urine 1.015 (1.005-1.025); UACC Culture Trigger NO; Urine Blood 2+ (NEG); Urine Ketones NEG (NEG); Urine Protein NEG (NEG-TRACE)
[2021-09-02 22:56] LABS: Bacteria Urine 2+ /LPF; Squamous Epithelial Cell Urine 1+ /LPF
[2021-09-02 22:57] LABS: Mucus Urine 1+ /LPF
[2021-09-02] MEDS: vancomycin HCL 1,000 MG in 0.9 % Sodium Chloride 250 ML 270 MG IV (22:58)
[2021-09-02 23:40] VITALS: PULSE 92; RESP 15; O2SAT 97
--- NOTE | 2021-09-02 23:40 | PC.NURSE ---
pt assisted to bedside commode to void, pt able to void independently. no c/o dizziness with transfer from bed to commode
== END 2021-09-03 00:02 | disposition home or self-care (01) ==
PROVIDERS: Emergency Provider Internal Medicine; PCP Internal Medicine
DX: U07.1 COVID-19 (principal); L03.116 Cellulitis of left lower limb; D68.59 Other primary thrombophilia; E11.9 Type 2 diabetes mellitus without complications; I10 Essential (primary) hypertension; Z86.718 Personal history of other venous thrombosis and embolism; Z91.81 History of falling; Z79.01 Long term (current) use of anticoagulants
CPT/HCPCS: 36415; 70450; 71045; 72125; 80053; 81001; 83605; 85025; 85610; 85730; 87040; 87635; 93005; 96361; 96374; 96375; 99284; 99285; J2543; J3370

== ENCOUNTER → 2021-09-03 15:00 | Outpatient (BNVA) | payer MEDICARE, SELFPAY | PROVIDERS: PCP Internal Medicine; Visit Provider Internal Medicine | DX: I82.409 Acute embolism and thrombosis of unspecified deep veins of unspecified lower extremity (principal); Z79.01 Long term (current) use of anticoagulants; Z51.81 Encounter for therapeutic drug level monitoring | CPT/HCPCS: Q3014 ==

== ENCOUNTER → 2021-09-09 13:08 | Outpatient (BNVA) | payer MEDICARE, SELFPAY | PROVIDERS: PCP Internal Medicine; Visit Provider Internal Medicine | DX: I82.409 Acute embolism and thrombosis of unspecified deep veins of unspecified lower extremity (principal); Z79.01 Long term (current) use of anticoagulants; Z51.81 Encounter for therapeutic drug level monitoring | CPT/HCPCS: 85610; 99211 ==

== ENCOUNTER → 2021-09-12 13:11 | Outpatient (BNVA) | payer MEDICARE, SELFPAY | PROVIDERS: PCP Internal Medicine; Visit Provider Internal Medicine | DX: I82.409 Acute embolism and thrombosis of unspecified deep veins of unspecified lower extremity (principal); Z79.01 Long term (current) use of anticoagulants; Z51.81 Encounter for therapeutic drug level monitoring | CPT/HCPCS: 85610; 99211 ==

== ENCOUNTER 2021-09-17 13:18 | Outpatient (REF) | payer MEDICARE, SELFPAY ==
[2021-09-17 13:54] LABS: INTERNATIONAL NORM RATIO 4.8 (0.9-1.1)
== END 2021-09-17 13:19 | disposition home or self-care (01) ==
LOC: HO.LAB 13:18
PROVIDERS: PCP Internal Medicine; Visit Provider Internal Medicine
DX: I82.409 Acute embolism and thrombosis of unspecified deep veins of unspecified lower extremity (principal); Z51.81 Encounter for therapeutic drug level monitoring; Z79.01 Long term (current) use of anticoagulants
CPT/HCPCS: 36415; 85610; 99212

== ENCOUNTER → 2021-09-20 13:34 | Outpatient (BNVA) | payer MEDICARE, SELFPAY | PROVIDERS: PCP Internal Medicine; Visit Provider Internal Medicine | DX: I82.409 Acute embolism and thrombosis of unspecified deep veins of unspecified lower extremity (principal); Z79.01 Long term (current) use of anticoagulants; Z51.81 Encounter for therapeutic drug level monitoring | CPT/HCPCS: 85610; 99211 ==

== ENCOUNTER → 2021-09-27 13:17 | Outpatient (BNVA) | payer MEDICARE, SELFPAY | PROVIDERS: PCP Internal Medicine; Visit Provider Internal Medicine | DX: I82.409 Acute embolism and thrombosis of unspecified deep veins of unspecified lower extremity (principal); Z79.01 Long term (current) use of anticoagulants; Z51.81 Encounter for therapeutic drug level monitoring | CPT/HCPCS: 85610; 99211 ==

== ENCOUNTER → 2021-10-04 13:21 | Outpatient (BNVA) | payer MEDICARE, SELFPAY | PROVIDERS: PCP Internal Medicine; Visit Provider Internal Medicine | DX: I82.409 Acute embolism and thrombosis of unspecified deep veins of unspecified lower extremity (principal); Z79.01 Long term (current) use of anticoagulants; Z51.81 Encounter for therapeutic drug level monitoring | CPT/HCPCS: 85610; 99211 ==

== ENCOUNTER → 2021-10-18 13:00 | Outpatient (BNVA) | payer MEDICARE, SELFPAY | PROVIDERS: PCP Internal Medicine; Visit Provider Internal Medicine | DX: I82.409 Acute embolism and thrombosis of unspecified deep veins of unspecified lower extremity (principal); Z79.01 Long term (current) use of anticoagulants; Z51.81 Encounter for therapeutic drug level monitoring | CPT/HCPCS: 85610; 99211 ==

== ENCOUNTER → 2021-11-01 13:21 | Outpatient (BNVA) | payer MEDICARE, SELFPAY | PROVIDERS: PCP Internal Medicine; Visit Provider Internal Medicine | DX: I82.409 Acute embolism and thrombosis of unspecified deep veins of unspecified lower extremity (principal); Z79.01 Long term (current) use of anticoagulants; Z51.81 Encounter for therapeutic drug level monitoring | CPT/HCPCS: 85610; 99211 ==

== ENCOUNTER → 2021-11-08 13:10 | Outpatient (BNVA) | payer MEDICARE, SELFPAY | PROVIDERS: PCP Internal Medicine; Visit Provider Internal Medicine | DX: I82.409 Acute embolism and thrombosis of unspecified deep veins of unspecified lower extremity (principal); Z79.01 Long term (current) use of anticoagulants; Z51.81 Encounter for therapeutic drug level monitoring | CPT/HCPCS: 85610; 99211 ==

== ENCOUNTER → 2021-11-15 11:33 | Outpatient (BNVA) | payer MEDICARE, SELFPAY | PROVIDERS: PCP Internal Medicine; Visit Provider Internal Medicine | DX: I82.409 Acute embolism and thrombosis of unspecified deep veins of unspecified lower extremity (principal); Z79.01 Long term (current) use of anticoagulants; Z51.81 Encounter for therapeutic drug level monitoring | CPT/HCPCS: 85610; 99211 ==

== ENCOUNTER → 2021-11-29 11:15 | Outpatient (BNVA) | payer MEDICARE, SELFPAY | PROVIDERS: PCP Internal Medicine; Visit Provider Internal Medicine | DX: I82.409 Acute embolism and thrombosis of unspecified deep veins of unspecified lower extremity (principal); Z79.01 Long term (current) use of anticoagulants; Z51.81 Encounter for therapeutic drug level monitoring | CPT/HCPCS: 85610; 99211 ==

== ENCOUNTER → 2021-12-09 13:04 | Outpatient (BNVA) | payer MEDICARE, SELFPAY | PROVIDERS: PCP Internal Medicine; Visit Provider Internal Medicine | DX: I82.409 Acute embolism and thrombosis of unspecified deep veins of unspecified lower extremity (principal); Z79.01 Long term (current) use of anticoagulants; Z51.81 Encounter for therapeutic drug level monitoring | CPT/HCPCS: 85610; 99211 ==

== ENCOUNTER 2021-12-13 09:14 | Emergency (ER) | payer MEDICARE, SELFPAY ==
--- NOTE | ~2021-12-13 | CT_ITS ---
EXAMINATION: CT HEAD WITHOUT CONTRAST CLINICAL INFORMATION: Abnormal ambulation COMPARISON: Previous head CT most recent August 2021 TECHNIQUE: Contiguous axial imaging was performed from the skull base to vertex without intravenous administration of contrast. This CT examination was performed using dose optimization techniques as appropriate, variously including the following: *Automated exposure control *Adjustment of mA and/or kV according to patient size (this includes techniques or standardized protocols for targeted exams where dose is matched to indication/reason for exam; i.e. extremities or head) *Use of iterative reconstruction technique DLP: 727 mGy-cm FINDINGS: There is no evidence of an extra-axial collection. There is no evidence of intra-axial or extra-axial hemorrhage. The ventricles and extra-axial CSF spaces are slightly prominent suggestive of mild generalized atrophy. There is mild nonspecific periventricular white matter disease. No mass, mass effect or infarct is seen. Review of bone windows is normal. There is mild membranous soft tissue thickening in the left maxillary sinus. Paranasal sinuses, mastoid air cells and middle ears are otherwise clear. CT/CT head/brain wo con IMPRESSION: No acute findings.
--- NOTE | ~2021-12-13 | CT_ITS ---
EXAMINATION: CT ABDOMEN AND PELVIS WITHOUT CONTRAST CLINICAL INFORMATION: Abdominal pain COMPARISON: None TECHNIQUE: Multidetector volumetric imaging was performed from the superior aspect of the liver through the pubic symphysis. Sagittal and coronal reformatted images were obtained on the technologist's workstation. This CT examination was performed using dose optimization techniques as appropriate, variously including the following: *Automated exposure control *Adjustment of mA and/or kV according to patient size (this includes techniques or standardized protocols for targeted exams where dose is matched to indication/reason for exam; i.e. extremities or head) *Use of iterative reconstruction technique DLP: 998 mGy-cm FINDINGS: LUNG BASES: The visualized lung bases are unremarkable. LIVER, GALLBLADDER, AND BILIARY TREE: The liver is normal in size, shape, and attenuation. No focal hepatic lesion or biliary ductal dilatation is present. The gallbladder is not seen and has presumably been removed. PANCREAS: There is fatty infiltration of the pancreas. SPLEEN: Unremarkable. ADRENAL GLANDS: Unremarkable. KIDNEYS AND URETERS: The kidneys are normal in size, shape, and attenuation. There is mild fullness of the right lower pole calyces. No left hydronephrosis. BLADDER: Unremarkable. GASTROINTESTINAL TRACT: There is diverticulosis of the colon. There is an air collection adjacent to the second/third portion of the duodenum and head of the pancreas. This measures 2.2 x 3.2 cm axial image 33 series 14. This may represent a duodenal diverticulum. However, there is some adjacent fat stranding versus small lymph nodes. Possible ulcer or contained perforation of the duodenum cannot be completely excluded. Clinical correlation is recommended. This could be better evaluated with an upper GI if clinically indicated. There is diverticulosis of the colon. No evidence of diverticulitis is seen. There may be a small esophageal hernia. The appendix is not seen. ABDOMINAL WALL: There is a small umbilical hernia containing fat. LYMPH NODES: Small retroperitoneal lymph nodes in the abdomen and pelvis. Question small lymph nodes adjacent to the head of the pancreas duodenum. VASCULAR: There are lower abdominal wall superficial varices. PELVIC VISCERA: Unremarkable. OSSEOUS STRUCTURES: There are degenerative changes of the spine. CT/CT abdomen pelvis wo con IMPRESSION: Diverticulosis of the colon. No evidence of diverticulitis. Question duodenal diverticulum adjacent to the head of the pancreas. There is some surrounding fat stranding and small lymph nodes. Possible ulcer or contained perforation cannot be excluded. This could be further evaluated with upper GI if clinically indicated. Mild fullness of the lower pole calyces in the right kidney. Small umbilical hernia containing fat. Fleischner guidelines were followed.
[2021-12-13 09:25] VITALS: BP 161/80; PULSE 78; RESP 18; TEMP 36.8; O2SAT 98; BMI 36.2
[2021-12-13 09:47] LABS: Appearance Urine Cloudy; Color Urine Straw; Glucose Urine UA Negative (Negative); Hematocrit 41.8 % (37.0-47.0); Hemoglobin 13.8 g/dl (12.0-16.0); Leukocyte Esterase Urine Trace (Negative); Mean Corpuscular Hemoglobin 34.2 pg (27.0-33.0); Mean Corpuscular Volume 103.7 fL (80.0-98.0); Mean Platelet Volume 9.3 fL (9.4-12.3); Nitrite Urine Negative (Negative); PH 6.5 (5.0-8.0); Platelet Count 168 X10*3/uL (160-400); Red Blood Count 4.03 X10*6/uL (4.20-5.50); Red Cell Distribution Width 12.4 % (11.0-16.0); Urine Blood Small (1+) (Negative); Urine Ketones Negative (Negative); Urine Protein Negative (Neg-Trace); White Blood Count 5.7 X10*3/uL (4.8-10.8)
[2021-12-13 09:51] LABS: INTERNATIONAL NORM RATIO 2.9 (0.9-1.1)
[2021-12-13 09:54] LABS: Bacteria Urine 3+ (None Seen)
[2021-12-13 09:55] LABS: Hyaline Casts Urine 0-2 /LPF (0-2); RBC Urine 0-2 /HPF (0-2); WBC Urine 0-5 /HPF (0-5)
[2021-12-13 10:05] LABS: Alanine Aminotransferase 19 U/L (0-31); Alkaline Phosphatase 72 U/L (39-117); Anion Gap 12 (12-20); Aspartate Amino Transferase 14 U/L (5-31); Bilirubin Direct < 0.2 mg/dL (0.0-0.5); Bilirubin Total 0.3 mg/dL (0.0-1.0); Blood Urea Nitrogen 19 mg/dL (9-16); Calcium 9.3 mg/dL (8.4-10.2); Carbon Dioxide 31 mmol/L (22-29); Chloride 104 mmol/L (96-108); Creatinine Clr Calc Pharmacy 60.3; Estimated Glomerular Filt Rate > 60; Glucose Random 104 mg/dL (60-115); Lipase 40 U/L (8-78); Potassium 4.3 mmol/L (3.3-5.1); Sodium 143 mmol/L (135-145); Total Protein 6.8 g/dL (6.5-8.0)
[2021-12-13 10:14] LABS: COVID-19 Test Negative (Negative); IDNOW Serial# 16C4AD1C
--- NOTE | 2021-12-13 11:16 | ED_ITS ---
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 The patient states that her lower back pain resolved the last time that she was on antibiotics for a UTI and has gradually come back over the past few months. She also reports one episode of diarrhea yesterday. She states she now feels some what bloated. She also c/o of a left ear blockage and walking diagonally sometimes when ambulating. She states that she has a cane and walker at home, but doesn't like to use them. She denies any fever, chills, headache, vision changes, dizziness, lightheadedness, chest pain, shortness of breath, cough, wheezing, nausea, vomiting, constipation, abdominal pain, and numbness/tingling of the lower extremities or groin. Location: back Radiation: non-radiation Severity: mild Quality: aching and dull Pain Consistency: constant Relieving factors: none Exacerbating factors: none Associated symptoms: denies other symptoms Treatments prior to arrival: none Related Data Home Medications Medication Instructions Recorded Confirmed cyanocobalamin (vitamin B-12) 1,000 mcg PO DAILY 02/03/20 09/27/21 1,000 mcg capsule multivitamin 1 tab PO DAILY 02/03/20 09/27/21 Previous Rx's Medication Instructions Recorded lancing device #1 ea 02/10/20 ammonium lactate 12 % topical cream 1 applic topical BID #140 grams 03/08/20 lancets (Accu-Chek Fastclix Lancet #100 ea 02/11/21 Drum) clotrimazole-betamethasone 1 1 appl topical BID 2 weeks #45 04/11/21 %-0.05 % topical cream grams blood-glucose meter #1 ea 09/27/21 warfarin 1 mg tablet 1 mg PO DAILY #90 tabs 09/27/21 amlodipine 5 mg tablet 5 mg PO DAILY #90 tabs 10/11/21 atorvastatin 40 mg tablet 40 mg PO DAILY #90 tabs 10/11/21 furosemide 20 mg tablet 20 mg PO DAILY #90 tabs 10/11/21 glipizide 5 mg tablet 5 mg PO DAILY #90 tabs 10/11/21 lisinopril 40 mg tablet 40 mg PO DAILY #90 tabs 10/11/21 phenytoin sodium extended 100 mg 300 mg PO BID #360 caps 10/11/21 capsule warfarin 5 mg tablet 5 mg PO DAILY #90 tabs 10/11/21 lancing device (Adjustable Lancing #1 ea 10/15/21 Device) blood-glucose meter (Accu-Chek #1 ea 11/25/21 Guide Glucose Meter) blood sugar diagnostic (Blood #50 ea 11/26/21 Glucose Test strips) cephalexin 500 mg capsule 500 mg PO Q6H 7 days #28 caps 12/13/21 Allergies Allergy/AdvReac Type Severity Reaction Status Date / Time shrimp [SHRIMP] Allergy Mild HIVES Verified 12/09/21 13:11 Review of Systems Constitutional: Constitutional: Reports no additional constitutional complaints, Denies chills, Denies fever(s) and Denies night sweats Eyes: Eyes: Reports no additional eye complaints, Denies blurry vision, Denies change in vision, Denies diplopia, Denies eye discharge, Denies loss of vision and Denies eye pain ENT: Denies dizziness Cardiovascular: Cardiovascular: Reports no additional cardiovascular complain ts, Denies chest pain, Denies lightheadedness, Denies Loss of Consciousness and Denies dyspnea Respiratory: Respiratory: Reports no additional respiratory complaints and Denies dyspnea Gastrointestinal: Gastrointestinal: Denies abdominal pain, Denies melena, Denies hematochezia, Denies change in bowel habits, Denies change in stool character, Reports diarrhea (1 episode 12/12.), Denies nausea and Denies vomiting Genitourinary: Genitourinary: Denies hematuria, Denies urinary frequency, Denies dysuria, Denies urinary incontinence, Denies urinary hesitancy and Denies urinary urgency Comments: Urinary odor. Musculoskeletal: Musculoskeletal: Reports no additional musculoskeletal complaints, Reports back pain (Diffuse lower back pain.), Denies numbness and Denies tingling Neurologic: Denies dizziness, Denies loss of vision, Denies numbness and Denies tingling Psychiatric: Psychiatric: Reports no additional psychiatric complaints Endocrine: Endocrine: Reports no additional endocrine complaints Hematologic/Lymphatic: Hematologic/Lymphatic: Reports no additional hematologic/lymphatic complaints Allergic/Immunologic: Allergic/Immunologic: Reports no additional allergic/immunologic complaints FORMERLY [facility], [facility] Past Medical History Attestation statement: The following information was validated with the patient. Source: old records reviewed Medical History Diabetes mellitus with coincident hypertension Hyperlipidemia Hypertension Surgical History History of appendectomy History of cholecystectomy History of lumpectomy of right breast Family History Family History Father Asthma Mother Diabetes Hypertension Colon cancer Other Substance use disorder Social History Social History Housing: House Alcohol intake: never Patient Tobacco Use Status: Never used Tobacco e-Cigarette/Vaping Use: Never Used Second Hand Smoke Exposure: No Advance Directives: No Advance Directives Information Provided: No Advance Directives Date on File: 02/08/20 service: No Current occupational status: employed Cognitive needs: No Hearing needs: No Vision needs: No Physical Exam ED Vital Signs: Vital Signs - 24 hr 12/13/21 09:25 12/13/21 14:07 Temperature 98.3 F Pulse Rate 78 82 Respiratory Rate 18 16 Blood Pressure 161/80 H 160/74 H Pulse Oximetry 98 96 Oxygen Delivery Method Room Air Room Air BMI result Body Mass Index 36.2 Const General: cooperative, no acute distress, alert and awake Nutritional Appearance: well nourished Orientation/consciousness: patient oriented x3 Limitations: no limitations HENMT Other: Mild cerumen noted in left ear. Head: Yes normal to inspection and Yes atraumatic Ears: hearing grossly normal bilaterally and external ears normal General nose exam: Normal external nose present, no nasal discharge noted and no epistaxis Face and sinus: Yes normal facial exam, No abrasion and No laceration Mouth: Normal oral and palatal mucosa present, no drooling and no muffled voice Eyes General: appearance normal, both eyes and all related structures Periorbital: periorbital findings normal Eyelids: Yes eyelids normal Conjunctivae: conjunctivae normal Pupils: Equal, round and reactive pupils present EOM: EOMs intact bilaterally Neck Neck: Yes normal visual inspection, Yes full ROM and Yes no lymphadenopathy Chest Chest palpation & inspection: normal inspection of the chest Resp Effort & Inspection: normal respiratory effort and able to speak in complete sentences Auscultation: clear to auscultation bilaterally, no crackles, no rales, no rhonchi and no wheezes Cardio Rate: regular rate Rhythm: regular rhythm GI Other: Patient's abdomen appears mildly bloated. No pain on palpation. No rebound tenderness. Inspection: Yes normal to inspection Palpation (GI): Soft to palpation, not firm, nontender, no guarding and not rigid General: Yes no CVA tenderness Back/Spine/Pelvis Other: Mild tenderness of the lower back bilaterally. Back: no CVA tenderness, No erythema, No warmth, No ecchymosis and back tend erness Skin General skin exam: no rashes or lesions noted Neuro General: patient oriented x3 and moves all extremities Cranial nerves: Yes Equal, round and reactive pupils present Cognition (Neuro): normal cognition Motor exam (neuro): 5/5 motor strength present throughout Sensory Exam: Normal double simultaneous stimulation for sensation Extrem General: Yes normal to inspection, Yes full ROM and Yes capillary refill normal Psych Appearance: grossly normal Mental Status: mental status grossly normal Affect: normal affect Attitude: cooperative Thought process: Normal thought process present Thought content: Normal thought content present Insight: Good insight present (Psych) Medical Decision Making MDM Narrative Medical decision making narrative: Patient is a 76 year old female presenting to the emergency department today with low back pain. Patient's physical exam was unremarkable, including a normal abdominal examination. Patient's blood work was unremarkable. Patient's urine showed an acute urinary tract infection. There was some concern that the patient's gait unsteadiness had gotten worse. Patient's head CT was negative and the patient had a normal, steady gait, on my physical examination as well as a negative neurological examination. Patient's abdominal CT showed a possible duodenal diverticulum adjacent to the head of the pancreas with some surrounding fat stranding and small lymph nodes. The radiologist suggests this could be an ulcer vs. contained perforation and recommends further evaluation with upper GI if clinically indicated. Due to the patient's benign lab work and physical examination, I do not believe the patient to have an acute abdomen requiring emergent GI evaluation at this time. I explained my physical exam findings as well as all test results to the patient. I answered all questions asked by the patient. I stressed the importance of the patient taking her medication as prescribed. I stressed the importance of the patient following up with her primary care provider and a GI specialist. I stressed the importance of the patient returning to the emergency department immediately if her symptoms were to worsen or if she were to develop any dizziness, shortness of breath, difficulty breathing, chest pain, blurry vision, loss of vision, nausea, vomiting, abdominal pain, fever, chills, back pain, or any other complaints. Patient verbalized agreement and understanding with this treatment plan and discharge. Differential Diagnosis Differential Diagnosis: UTI Medical Records Medical records reviewed: Yes I reviewed the patient's medical records. Lab Data Lab results reviewed: Yes I reviewed the patient's lab results. Result diagrams: 12/13/21 09:38 12/13/21 09:38 Labs: Lab Results 12/13/21 12/13/21 12/13/21 Range/Units 09:38 09:38 09:38 WBC 5.7 (4.8-10.8) X10*3/uL RBC 4.03 L (4.20-5.50) X10*6/uL Hgb 13.8 (12.0-16.0) g/dl Hct 41.8 (37.0-47.0) % MCV 103.7 H (80.0-98.0) fL MCH 34.2 H (27.0-33.0) pg MCHC 33.0 (31.0-35.0) g/dl RDW 12.4 (11.0-16.0) % Plt Count 168 D (160-400) X10*3/uL MPV 9.3 L (9.4-12.3) fL Absolute Nucleated RBC 0.000 (0.0-0.012) X10*3/uL Nucleated RBC % (auto) 0.0 (0.0-0.2) /100WBC PT (10.0-13.1) SEC INR (0.9-1.1) Sodium 143 (135-145) mmol/L Potassium 4.3 (3.3-5.1) mmol/L Chloride 104 (96-108) mmol/L Carbon Dioxide 31 H (22-29) mmol/L Anion Gap 12 (12-20) BUN 19 H (9-16) mg/dL Creatinine 0.84 (0.5-1.4) mg/dL Estim Creat Clear Calc 60.3 Estimated GFR > 60 Random Glucose 104 (60-115) mg/dL Calcium 9.3 D (8.4-10.2) mg/dL Total Bilirubin 0.3 (0.0-1.0) mg/dL Direct Bilirubin < 0.2 (0.0-0.5) mg/dL AST 14 (5-31) U/L ALT 19 (0-31) U/L Alkaline Phosphatase 72 (39-117) U/L Total Protein 6.8 (6.5-8.0) g/dL Albumin 4.0 (3.5-5.0) g/dL Lipase 40 (8-78) U/L Urine Color Urine Appearance Urine pH (5.0-8.0) Ur Specific [place] (1.005-1.025) Urine Protein (Neg-Trace) mg/dL Urine Glucose (UA) (Negative) mg/dL Urine Ketones (Negative) mg/dL Urine Blood (Negative) Urine Nitrite (Negative) Ur Leukocyte Esterase (Negative) Urine RBC (0-2) /HPF Urine WBC (0-5) /HPF Ur Squamous Epith Cells (0-2) /HPF Urine Bacteria (None Seen) Hyaline Casts (0-2) /LPF COVID-19 ([place]) Negative (Negative) COVID-19 Clin Com See Note 12/13/21 12/13/21 Range/Units 09:38 09:38 WBC (4.8-10.8) X10*3/uL RBC (4.20-5.50) X10*6/uL Hgb (12.0-16.0) g/dl Hct (37.0-47.0) % MCV (80.0-98.0) fL MCH (27.0-33.0) pg MCHC (31.0-35.0) g/dl RDW (11.0-16.0) % Plt Count (160-400) X10*3/uL MPV (9.4-12.3) fL Absolute Nucleated RBC (0.0-0.012) X10*3/uL Nucleated RBC % (auto) (0.0-0.2) /100WBC PT 35.0 H (10.0-13.1) SEC INR 2.9 H (0.9-1.1) Sodium (135-145) mmol/L Potassium (3.3-5.1) mmol/L Chloride (96-108) mmol/L Carbon Dioxide (22-29) mmol/L Anion Gap (12-20) BUN (9-16) mg/dL Creatinine (0.5-1.4) mg/dL Estim Creat Clear Calc Estimated GFR Random Glucose (60-115) mg/dL Calcium (8.4-10.2) mg/dL Total Bilirubin (0.0-1.0) mg/dL Direct Bilirubin (0.0-0.5) mg/dL AST (5-31) U/L ALT (0-31) U/L Alkaline Phosphatase (39-117) U/L Total Protein (6.5-8.0) g/dL Albumin (3.5-5.0) g/dL Lipase (8-78) U/L Urine Color Straw Urine Appearance Cloudy Urine pH 6.5 (5.0-8.0) Ur Specific [place] 1.010 (1.005-1.025) Urine Protein Negative (Neg-Trace) mg/dL Urine Glucose (UA) Negative (Negative) mg/dL Urine Ketones Negative (Negative) mg/dL Urine Blood Small (1+) H (Negative) Urine Nitrite Negative (Negative) Ur Leukocyte Esterase Trace H (Negative) Urine RBC 0-2 (0-2) /HPF Urine WBC 0-5 (0-5) /HPF Ur Squamous Epith Cells 11-20 (0-2) /HPF Urine Bacteria 3+ (None Seen) Hyaline Casts 0-2 (0-2) /LPF COVID-19 ([place]) (Negative) COVID-19 Clin Com Imaging Data CT scan - head: Attestation: I personally reviewed and interpreted this imaging study as follows: My impression: No acute process. Radiologist's impression: EXAMINATION: CT HEAD WITHOUT CONTRAST CLINICAL INFORMATION: Abnormal ambulation? COMPARISON: Previous head CT most recent August 2021 TECHNIQUE: Contiguous axial imaging was performed from the skull base to vertex without intravenous administration of contrast. This CT examination was performed using dose optimization techniques as appropriate, variously including the following: *Automated exposure control *Adjustment of mA and/or kV according to patient size (this includes techniques or standardized protocols for targeted exams where dose is matched to indication/reason for exam; i.e. extremities or head) *Use of iterative reconstruction technique DLP: 727 mGy-cm FINDINGS: There is no evidence of an extra-axial collection. There is no evidence of intra-axial or extra-axial hemorrhage. The ventricles and extra-axial CSF spaces are slightly prominent suggestive of mild generalized atrophy. There is mild nonspecific periventricular white matter disease. No mass, mass effect or infarct is seen. Review of bone windows is normal. There is mild membranous soft tissue thickening in the left maxillary sinus. Paranasal sinuses, mastoid air cells and middle ears are otherwise clear. CT/CT head/brain wo con IMPRESSION: No acute findings. Dictated By: Celeste Peña MD Signed By: Electronically signed by Celeste Peña MD 12/13/[address] scan - abdomen: Attestation: I personally reviewed and interpreted this imaging study as follows: My impression: No acute process. Radiologist's impression: EXAMINATION: CT ABDOMEN AND PELVIS WITHOUT CONTRAST? CLINICAL INFORMATION: Abdominal pain? COMPARISON: None? TECHNIQUE: Multidetector volumetric imaging was performed from the superior aspect of the liver through the pubic symphysis. Sagittal and coronal reformatted images were obtained on the technologist's workstation.? This CT examination was performed using dose optimization techniques as appropriate, variously including the following: *Automated exposure control *Adjustment of mA and/or kV according to patient size (this includes techniques or standardized protocols for targeted exams where dose is matched to indication/reason for exam; i.e. extremities or head) *Use of iterative reconstruction technique DLP: 998 mGy-cm FINDINGS: LUNG BASES: The visualized lung bases are unremarkable.? LIVER, GALLBLADDER, AND BILIARY TREE: The liver is normal in size, shape, and attenuation. No focal hepatic lesion or biliary ductal dilatation is present. The gallbladder is not seen and has presumably been removed.? PANCREAS: There is fatty infiltration of the pancreas.? SPLEEN: Unremarkable.? ADRENAL GLANDS: Unremarkable.? KIDNEYS AND URETERS: The kidneys are normal in size, shape, and attenuation. There is mild fullness of the right lower pole calyces. No left hydronephrosis.? BLADDER: Unremarkable.? GASTROINTESTINAL TRACT: There is diverticulosis of the colon. There is an air collection adjacent to the second/third portion of the duodenum and head of the pancreas. This measures 2.2 x 3.2 cm axial image 33 series 14. This may represent a duodenal diverticulum. However, there is some adjacent fat stranding versus small lymph nodes. Possible ulcer or contained perforation of the duodenum cannot be completely excluded. Clinical correlation is recommended. This could be better evaluated with an upper GI if clinically indicated. There is diverticulosis of the colon. No evidence of diverticulitis is seen. There may be a small esophageal hernia. The appendix is not seen. ABDOMINAL WALL: There is a small umbilical hernia containing fat.? LYMPH NODES: Small retroperitoneal lymph nodes in the abdomen and pelvis. Question small lymph nodes adjacent to the head of the pancreas duodenum. VASCULAR: There are lower abdominal wall superficial varices. PELVIC VISCERA: Unremarkable.? OSSEOUS STRUCTURES: There are degenerative changes of the spine.? CT/CT abdomen pelvis wo con IMPRESSION: Diverticulosis of the colon. No evidence of diverticulitis. Question duodenal diverticulum adjacent to the head of the pancreas. There is some surrounding fat stranding and small lymph nodes. Possible ulcer or contained perforation cannot be excluded. This could be further evaluated with upper GI if clinically indicated. Mild fullness of the lower pole calyces in the right kidney. Small umbilical hernia containing fat.? ? Fleischner guidelines were followed. Dictated By: Celeste Peña MD Signed By: Electronically signed by Celeste Peña MD 12/13/21 1996 Discharge Plan Discharge Clinical Impression: Urinary tract infection Patient Disposition: Home, Self-Care Instructions: Urinary Tract Infection in Women (ED) Additional Instructions: Your abdominal CT scan showed an incidental finding of a duodenal diverticulum adjacent to the head of the pancreas which could be an ulcer or a contained perforation. You should follow up with a GI specialist to further evaluate this finding. Follow up with your primary care provider. Return to the emergency department immediately if your symptoms worsen or if you develop any dizziness, shortness of breath, difficulty breathing, chest pain, blurry vision, loss of vision, nausea, vomiting, abdominal pain, fever, chills, back pain, or any other complaints. Prescriptions: New cephalexin 500 mg capsule 500 mg PO Q6H 7 Days Qty: 28 0RF No Action (DME) lancing device Misc See Rx Instructions .ROUTE .MEDSUPPLY Qty: 1 8RF Rx Instructions: ACCU-CHECK DARLINE DEVICE ammonium lactate 12 % cream 1 applic topical BID Qty: 140 6RF (DME) lancets [Accu-Chek Fastclix Lancet Drum] Misc See Rx Instructions .ROUTE .MEDSUPPLY Qty: 100 8RF Rx Instructions: Check blood sugars Twice a day clotrimazole-betamethasone 1-0.05 % cream 1 appl topical BID 14 Days Qty: 45 0RF amlodipine 5 mg tablet 5 mg PO DAILY Qty: 90 8RF atorvastatin 40 mg tablet 40 mg PO DAILY Qty: 90 8RF furosemide 20 mg tablet 20 mg PO DAILY Qty: 90 8RF glipizide 5 mg tablet 5 mg PO DAILY Qty: 90 8RF lisinopril 40 mg tablet 40 mg PO DAILY Qty: 90 8RF phenytoin sodium extended 100 mg capsule 300 mg PO BID Qty: 360 8RF warfarin 5 mg tablet 5 mg PO DAILY Qty: 90 3RF Protocol: Dose Management Condition: Thursday (Week One) Dose/Route: 5 mg Instruction: 1 x 5 mg tablet Condition: Thursday Dose/Route: 5 mg Instruction: 1 x 5 mg tablet Condition: Thursday Dose/Route: 5 mg Instruction: 1 x 5 mg tablet Condition: Thursday Dose/Route: 5 mg Instruction: 1 x 5 mg tablet Condition: Dose/Route: 5 mg Instruction: 1 x 5 mg tablet Condition: Thursday Dose/Route: 5 mg Instruction: 1 x 5 mg tablet Condition: Thursday Dose/Route: 5 mg Instruction: 1 x 5 mg tablet Condition: Thursday (Week Two) Dose/Route: 5 mg Instruction: 1 x 5 mg tablet Condition: Thursday Dose/Route: 5 mg Instruction: 1 x 5 mg tablet Condition: Thursday Dose/Route: 5 mg Instruction: 1 x 5 mg tablet Condition: Thursday Dose/Route: 5 mg Instruction: 1 x 5 mg tablet Condition: Dose/Route: 5 mg Instruction: 1 x 5 mg tablet Condition: Thursday Dose/Route: 5 mg Instruction: 1 x 5 mg tablet Condition: Thursday Dose/Route: 5 mg Instruction: 1 x 5 mg tablet Protocol Text: Adjustment Start Date: Thursday12/09/21 INR Value: 2.9 INR Date: 12/09/21 Recheck Date: 12/16/21 (DME) lancing device [Adjustable Lancing Device] Misc See Rx Instructions .Route Qty: 1 0RF Rx Instructions: As directed (DME) blood-glucose meter [Accu-Chek Guide Glucose Meter] Misc See Rx Instructions .Route Qty: 1 0RF Rx Instructions: As directed (DME) Blood Glucose Test Strip See Rx Instructions .Route Qty: 50 8RF Rx Instructions: test blood sugar twice a day multivitamin Tablet 1 tab PO DAILY cyanocobalamin (vitamin B-12) 1,000 mcg capsule 1,000 mcg PO DAILY (DME) blood-glucose meter Mis See Rx Instructions .ROUTE .MEDSUPPLY Qty: 1 0RF Rx Instructions: TEST 2 TIMES DAILY warfarin 1 mg tablet 1 mg PO DAILY Qty: 90 0RF Protocol: Dose Management Condition: Thursday (Week One) Dose/Route: 5 mg Instruction: 1 x 5 mg tablet Condition: Thursday Dose/Route: 5 mg Instruction: 1 x 5 mg tablet Condition: Thursday Dose/Route: 5 mg Instruction: 1 x 5 mg tablet Condition: Thursday Dose/Route: 5 mg Instruction: 1 x 5 mg tablet Condition: Dose/Route: 5 mg Instruction: 1 x 5 mg tablet Condition: Thursday Dose/Route: 5 mg Instruction: 1 x 5 mg tablet Condition: Thursday Dose/Route: 5 mg Instruction: 1 x 5 mg tablet Condition: Thursday (Week Two) Dose/Route: 5 mg Instruction: 1 x 5 mg tablet Condition: Thursday Dose/Route: 5 mg Instruction: 1 x 5 mg tablet Condition: Thursday Dose/Route: 5 mg Instruction: 1 x 5 mg tablet Condition: Thursday Dose/Route: 5 mg Instruction: 1 x 5 mg tablet Condition: Dose/Route: 5 mg Instruction: 1 x 5 mg tablet Condition: Thursday Dose/Route: 5 mg Instruction: 1 x 5 mg tablet Condition: Thursday Dose/Route: 5 mg Instruction: 1 x 5 mg tablet Protocol Text: Adjustment Start Date: Thursday12/09/21 INR Value: 2.9 INR Date: 12/09/21 Recheck Date: 12/16/21 Referrals: [facility] [place] [facility] [Provider Group] (Call to establish and follow up with a GI specialist. ) Jerry Spain MD [Primary Care Provider] - (Follow up with your primary care provider. ) Interventions: ED Discharge Assessment Last Done: 12/13/21 14:18 Discharge Date/Time: 12/13/21 14:19 Print Language: Persian
[2021-12-13 14:07] VITALS: BP 160/74; PULSE 82; RESP 16; O2SAT 96
== END 2021-12-13 14:19 | disposition home or self-care (01) ==
PROVIDERS: Emergency Provider Student in an Organized Health Care Education/Training Program; PCP Internal Medicine
DX: N39.0 Urinary tract infection, site not specified (principal); R26.81 Unsteadiness on feet; M54.50 Low back pain, unspecified; R51.9 Headache, unspecified; R10.9 Unspecified abdominal pain; Z20.822 Contact with and (suspected) exposure to COVID-19; Z79.899 Other long term (current) drug therapy
CPT/HCPCS: 36415; 70450; 74176; 80048; 80076; 81001; 83690; 85027; 85610; 87635; 99283; 99284

== ENCOUNTER → 2021-12-17 13:10 | Outpatient (BNVA) | payer MEDICARE, SELFPAY | PROVIDERS: PCP Internal Medicine; Visit Provider Internal Medicine | DX: I82.409 Acute embolism and thrombosis of unspecified deep veins of unspecified lower extremity (principal); Z79.01 Long term (current) use of anticoagulants; Z51.81 Encounter for therapeutic drug level monitoring | CPT/HCPCS: 85610; 99211 ==

== ENCOUNTER → 2021-12-25 13:53 | Outpatient (BNVA) | payer MEDICARE, SELFPAY | PROVIDERS: PCP Internal Medicine; Visit Provider Internal Medicine | DX: I82.409 Acute embolism and thrombosis of unspecified deep veins of unspecified lower extremity (principal); Z51.81 Encounter for therapeutic drug level monitoring; Z79.01 Long term (current) use of anticoagulants | CPT/HCPCS: 85610; 99211 ==

== ENCOUNTER → 2022-01-01 13:05 | Outpatient (BNVA) | payer MEDICARE, SELFPAY | PROVIDERS: PCP Internal Medicine; Visit Provider Internal Medicine | DX: I82.409 Acute embolism and thrombosis of unspecified deep veins of unspecified lower extremity (principal); Z79.01 Long term (current) use of anticoagulants; Z51.81 Encounter for therapeutic drug level monitoring | CPT/HCPCS: 85610; 99211 ==

== ENCOUNTER → 2022-01-08 13:10 | Outpatient (BNVA) | payer MEDICARE, SELFPAY | PROVIDERS: PCP Internal Medicine; Visit Provider Internal Medicine | DX: I82.409 Acute embolism and thrombosis of unspecified deep veins of unspecified lower extremity (principal); Z79.01 Long term (current) use of anticoagulants; Z51.81 Encounter for therapeutic drug level monitoring | CPT/HCPCS: 85610; 99211 ==

== ENCOUNTER 2022-01-16 13:58 | Outpatient (REF) | payer MEDICARE, SELFPAY ==
[2022-01-16 15:11] LABS: Amylase 45 U/L (28-100); Lipase 22 U/L (8-78)
[2022-01-16 15:33] LABS: Appearance Urine Turbid; Color Urine Yellow; Glucose Urine UA Negative (Negative); Leukocyte Esterase Urine Moderate (2+) (Negative); Nitrite Urine Negative (Negative); PH 5.5 (5.0-9.0); UMIC TRIGGER UACC YES; Urine Blood Small (1+) (Negative); Urine Ketones Negative (Negative); Urine Protein Negative (Neg-Trace)
[2022-01-16 16:02] LABS: Folate 13.5 ng/mL (> or = 4.0); Vitamin B12 > 2000 pg/mL (200-900)
[2022-01-16 16:03] LABS: TSH reflex Free T4 3.63 uIU/mL (0.32-4.0)
[2022-01-16 16:32] LABS: Bacteria Urine 2+ (None Seen); Hyaline Casts Urine 0-2 /LPF (0-2); RBC Urine 0-2 /HPF (0-2); Squamous Epithelial Cell Urine >20 /HPF (0-2); UACC Culture Trigger YES
== END 2022-01-16 13:59 | disposition home or self-care (01) ==
LOC: HO.LAB 13:58
PROVIDERS: PCP Internal Medicine; Visit Provider Nurse Practitioner
DX: K57.10 Diverticulosis of small intestine without perforation or abscess without bleeding (principal); R30.0 Dysuria; R53.83 Other fatigue; D12.6 Benign neoplasm of colon, unspecified; D68.2 Hereditary deficiency of other clotting factors; Z79.01 Long term (current) use of anticoagulants
CPT/HCPCS: 36415; 81001; 82150; 82607; 82746; 83690; 84443; 87086; 99202

== ENCOUNTER → 2022-01-20 13:59 | Outpatient (BNVA) | payer MEDICARE, SELFPAY | PROVIDERS: PCP Internal Medicine; Visit Provider Internal Medicine | DX: I82.409 Acute embolism and thrombosis of unspecified deep veins of unspecified lower extremity (principal); Z79.01 Long term (current) use of anticoagulants; Z51.81 Encounter for therapeutic drug level monitoring | CPT/HCPCS: 85610; 99211 ==

== ENCOUNTER → 2022-01-27 13:05 | Outpatient (BNVA) | payer MEDICARE, SELFPAY | PROVIDERS: PCP Internal Medicine; Visit Provider Internal Medicine | DX: I82.409 Acute embolism and thrombosis of unspecified deep veins of unspecified lower extremity (principal); Z79.01 Long term (current) use of anticoagulants; Z51.81 Encounter for therapeutic drug level monitoring | CPT/HCPCS: 85610; 99211 ==

== ENCOUNTER 2022-02-04 06:16 | Outpatient (REF) | payer MEDICARE, SELFPAY ==
[2022-02-04 07:33] LABS: Appearance Urine Cloudy; Color Urine Straw; Glucose Urine UA Negative (Negative); Leukocyte Esterase Urine Moderate (2+) (Negative); Nitrite Urine Negative (Negative); UMIC TRIGGER UACC YES; Urine Blood Small (1+) (Negative); Urine Ketones Negative (Negative); Urine Protein Negative (Neg-Trace)
[2022-02-04 07:43] LABS: UACC Culture Trigger YES
[2022-02-04 07:44] LABS: Bacteria Urine 2+ (None Seen); Hyaline Casts Urine 0-2 /LPF (0-2)
[2022-02-04 07:46] LABS: Estimated Average Glucose 108 mg/dL; Hemoglobin A1c % 5.4 %
[2022-02-04 08:10] LABS: Cholesterol 195 mg/dL; Glucose Fasting 101 mg/dL (60-99); HDL Cholesterol 55 mg/dL; LDL Cholesterol Calculated 113 mg/dl; Triglycerides 136 mg/dL
== END 2022-02-04 06:17 | disposition home or self-care (01) ==
LOC: HO.LAB 06:16
PROVIDERS: Nurse Practitioner; PCP Internal Medicine; Visit Provider Internal Medicine
DX: Z00.00 Encounter for general adult medical examination without abnormal findings (principal); E11.65 Type 2 diabetes mellitus with hyperglycemia
CPT/HCPCS: 36415; 80061; 81001; 82947; 83036; 87086

== ENCOUNTER → 2022-02-10 13:28 | Outpatient (BNVA) | payer MEDICARE, SELFPAY | PROVIDERS: PCP Internal Medicine; Visit Provider Internal Medicine | DX: I82.409 Acute embolism and thrombosis of unspecified deep veins of unspecified lower extremity (principal); Z79.01 Long term (current) use of anticoagulants; Z51.81 Encounter for therapeutic drug level monitoring | CPT/HCPCS: 85610; 99211 ==

== ENCOUNTER → 2022-02-17 13:49 | Outpatient (BNVA) | payer MEDICARE, SELFPAY | PROVIDERS: PCP Internal Medicine; Visit Provider Internal Medicine | DX: I82.409 Acute embolism and thrombosis of unspecified deep veins of unspecified lower extremity (principal); Z79.01 Long term (current) use of anticoagulants; Z51.81 Encounter for therapeutic drug level monitoring | CPT/HCPCS: 85610; 99211 ==

== ENCOUNTER → 2022-02-25 13:05 | Outpatient (BNVA) | payer MEDICARE, SELFPAY | PROVIDERS: PCP Internal Medicine; Visit Provider Internal Medicine | DX: I82.409 Acute embolism and thrombosis of unspecified deep veins of unspecified lower extremity (principal); Z79.01 Long term (current) use of anticoagulants; Z51.81 Encounter for therapeutic drug level monitoring | CPT/HCPCS: 85610; 99211 ==

== ENCOUNTER → 2022-03-04 12:59 | Outpatient (BNVA) | payer MEDICARE, SELFPAY | PROVIDERS: PCP Internal Medicine; Visit Provider Internal Medicine | DX: I82.409 Acute embolism and thrombosis of unspecified deep veins of unspecified lower extremity (principal); Z79.01 Long term (current) use of anticoagulants; Z51.81 Encounter for therapeutic drug level monitoring | CPT/HCPCS: 85610; 99211 ==

== ENCOUNTER → 2022-03-11 13:21 | Outpatient (BNVA) | payer MEDICARE, SELFPAY | PROVIDERS: PCP Internal Medicine; Visit Provider Internal Medicine | DX: I82.409 Acute embolism and thrombosis of unspecified deep veins of unspecified lower extremity (principal); Z79.01 Long term (current) use of anticoagulants; Z51.81 Encounter for therapeutic drug level monitoring | CPT/HCPCS: 85610; 99211 ==

== ENCOUNTER 2022-03-17 10:16 | Emergency (ER) | payer MEDICARE, SELFPAY ==
--- NOTE | ~2022-03-17 | XR_ITS ---
EXAMINATION: XR CERVICAL SPINE CLINICAL INFORMATION: Neck pain COMPARISON: None TECHNIQUE: 4 views of the cervical spine including swimmer's view were obtained. FINDINGS: The C1-C5 vertebral bodies are visualized. The C6 and C7 vertebral bodies are not well visualized. Bone alignment is normal. No fracture or dislocation. Degenerative spondylosis from C3-C4 to C5-C6. Degenerative disc narrowing at C5-C6. Degenerative changes at the C1 dens articulation. Normal prevertebral soft tissues. XR/XR cervical spine 2V IMPRESSION: Limited exam. C6 and C7 vertebral body is not well visualized. Degenerative changes.
--- NOTE | ~2022-03-17 | XR_ITS ---
EXAMINATION: XR TIBIA AND FIBULA, LEFT CLINICAL INFORMATION: Lower leg swelling and pain COMPARISON: Left ankle x-ray November 2017 TECHNIQUE: AP and lateral views of the left tibia and fibula were obtained. FINDINGS: Bone alignment is normal. No fracture or dislocation. Normal joint spaces. Osteophyte at the quadriceps tendon insertion to the patella. Diffuse soft tissue swelling. Soft tissue calcifications in the lower leg, increased anteriorly compared to previous ankle x-ray. XR/XR tibia fibula LT 2V IMPRESSION: Soft tissue swelling and soft tissue calcification is increased from November 2017 ankle x-ray. This may be related to venous stasis.
--- NOTE | ~2022-03-17 | US_ITS ---
EXAMINATION: US VENOUS ULTRASOUND WITH DOPPLER LOWER EXTREMITY, LEFT CLINICAL INFORMATION: Warm, redness and pain. History of blood clots. COMPARISON: Previous exams most recent December 2019 TECHNIQUE: Ultrasound of the deep veins is performed from the hip to the calf with compression sonography and color and pulse Doppler assessment. Spectral analysis with color-flow imaging is performed. FINDINGS: There is normal venous compression and respiratory variation and augmented flow. The visualized common femoral vein, superficial femoral vein, profunda femoral vein, popliteal vein, and the trifurcation region shows no evidence of deep venous thrombosis. There is no significant popliteal fossa cyst. US/US venous duplex LE LT IMPRESSION: No DVT demonstrated in the left lower extremity.
[2022-03-17 10:19] VITALS: BP 113/58; PULSE 91; RESP 18; TEMP 36.8; O2SAT 96; BMI 36.6
--- NOTE | 2022-03-17 10:31 | ED_ITS ---
HPI - General Adult General Chief complaint: Neck Pain/Injury Stated complaint: neck pain Time Seen by Provider: 03/17/22 10:22 Source: patient Mode of arrival: ambulatory Limitations: no limitations History of Present Illness HPI narrative: Patient is a 76 year old assigned female at with a history of DVT, factor V deficiency, HTN, and DM presenting to the emergency department today with left lower leg pain and neck pain. Patient states that she has had issues with her neck before and she believes she pinched a nerve in it again. Patient states that she also has left lower leg pain. Patient states that her left lower leg has been a bit more swollen lately. Patient states that she takes warfarin and has her INR checked regularly. Patient denies any dizziness, lightheadedness, abdominal pain, nausea, vomiting, fever, chills, blurry vision, double vision, loss of vision, chest pain, difficulty breathing, shortness of breath, back pain, night sweats, pain with urination, increased urinary frequency, increased urinary urgency, blood in her urine or stool, syncope or a near syncopal epi sode, recent trauma or falls, bowel incontinence, bladder incontinence, bowel retention, bladder retention, or any other complaints at this time. Onset (ago): week(s) Location: neck, left and lower extremity Severity: mild Severity scale (1-10): 3 Quality: dull Relieving factors: none Exacerbating factors: none Associated symptoms: denies other symptoms Treatments prior to arrival: none Related Data Home Medications Medication Instructions Recorded Confirmed cyanocobalamin (vitamin B-12) 1,000 mcg PO DAILY 02/03/20 03/11/22 1,000 mcg capsule multivitamin 1 tab PO DAILY 02/03/20 03/11/22 esomeprazole magnesium 20 mg 20 mg PO DAILY 01/08/22 03/11/22 capsule,delayed release (Nexium) glipizide 5 mg tablet 5 mg PO DAILY 01/16/22 03/11/22 Previous Rx's Medication Instructions Recorded lancing device #1 ea 02/10/20 ammonium lactate 12 % topical cream 1 applic topical BID #140 grams 03/08/20 lancets (Accu-Chek Fastclix Lancet #100 ea 02/11/21 Drum) blood-glucose meter #1 ea 09/27/21 amlodipine 5 mg tablet 5 mg PO DAILY #90 tabs 10/11/21 atorvastatin 40 mg tablet 40 mg PO DAILY #90 tabs 10/11/21 furosemide 20 mg tablet 20 mg PO DAILY #90 tabs 10/11/21 lisinopril 40 mg tablet 40 mg PO DAILY #90 tabs 10/11/21 phenytoin sodium extended 100 mg 300 mg PO BID #360 caps 10/11/21 capsule warfarin 5 mg tablet 5 mg PO DAILY #90 tabs 10/11/21 lancing device (Adjustable Lancing #1 ea 10/15/21 Device) blood-glucose meter (Accu-Chek #1 ea 11/25/21 Guide Glucose Meter) blood sugar diagnostic (Blood #50 ea 11/26/21 Glucose Test strips) nystatin 100,000 unit/gram topical 1 appl topical TID #30 grams 01/16/22 cream peg 3350-electrolytes 236 240 ml PO Q10M 1 day #4,000 mL 01/20/22 gram-22.74 gram-6.74 gram-5.86 gram solution (Golytely) warfarin 1 mg tablet 1 mg PO DAILY #90 tabs 02/25/22 cyclobenzaprine 5 mg tablet 5 mg PO TID PRN muscle spasm 7 03/17/22 days #21 tabs Allergies Allergy/AdvReac Type Severity Reaction Status Date / Time shrimp [SHRIMP] Allergy Mild HIVES Verified 03/11/22 13:21 No Known Drug Allergies Allergy Unknown none Verified 03/11/22 13:21 Review of Systems Constitutional: Constitutional: Reports no additional constitutional complaints, Denies chills, Denies fever(s) and Denies night sweats Eyes: Eyes: Reports no additional eye complaints, Denies blurry vision, Denies change in vision, Denies diplopia, Denies eye discharge, Denies loss of vision and Denies eye pain ENT: Denies dizziness and Reports neck pain Cardiovascular: Cardiovascular: Reports no additional cardiovascular complaints, Denies chest pain, Denies lightheadedness, Denies Loss of Consciousness and Denies dyspnea Respiratory: Respiratory: Reports no additional respiratory complaints and Denies dyspnea Gastrointestinal: Gastrointestinal: Reports no additional gastrointestinal complaints, Denies abdominal pain, Denies melena, Denies hematochezia, Denies change in bowel habits and Denies change in stool character Genitourinary: Genitourinary: Denies hematuria, Denies urinary frequency, Denies dysuria, Denies urinary incontinence, Denies urinary hesitancy and Denies urinary urgency Musculoskeletal: Musculoskeletal: Reports no additional musculoskeletal complaints, Reports neck pain, Denies numbness and Denies tingling Comments: left lower leg pain and swelling Neurologic: Denies dizziness, Denies loss of vision, Denies numbness and Denies tingling Psychiatric: Psychiatric: Reports no additional psychiatric complaints Endocrine: Endocrine: Reports no additional endocrine complaints Hematologic/Lymphatic: Hematologic/Lymphatic: Reports no additional hematolo gic/lymphatic complaints Allergic/Immunologic: Allergic/Immunologic: Reports no additional allergic/immunologic complaints FORMERLY [facility], [facility] Past Medical History Attestation statement: The following information was validated with the patient. Source: old records reviewed Medical History Diabetes mellitus with coincident hypertension DVT (deep venous thrombosis) Hyperlipidemia Hypertension Surgical History History of appendectomy History of cholecystectomy History of lumpectomy of right breast Family History Family History Father Asthma Mother Diabetes Hypertension Colon cancer Other Substance use disorder Social History Social History Housing: House Alcohol intake: never Patient Tobacco Use Status: Never used Tobacco e-Cigarette/Vaping Use: Never Used Second Hand Smoke Exposure: No Advance Directives: No Advance Directives Information Provided: Yes Advance Directives Date on File: 02/08/20 service: No Current occupational status: employed Cognitive needs: No Hearing needs: No Vision needs: No Physical Exam ED Vital Signs: Vital Signs - 24 hr 03/17/22 10:19 Temperature 98.2 F Pulse Rate 91 Respiratory Rate 18 Blood Pressure 113/58 L Pulse Oximetry 96 Oxygen Delivery Method Room Air BMI result Body Mass Index 36.6 Const General: cooperative, no acute distress, alert and awake Nutritional Appearance: well nourished Orientation/consciousness: patient oriented x3 Limitations: no limitations HENMT Head: Yes normal to inspection and Yes atraumatic Ears: hearing grossly normal bilaterally and external ears normal General nose exam: Normal external nose present, no nasal discharge noted and no epistaxis Face and sinus: Yes normal facial exam, No abrasion and No laceration Mouth: Normal oral and palatal mucosa present, no drooling and no muffled voice Eyes General: appearance normal, both eyes and all related structures Periorbital: periorbital findings normal Eyelids: Yes eyelids normal Conjunctivae: conjunctivae normal Pupils: Equal, round and reactive pupils present EOM: EOMs intact bilaterally Neck Neck: Yes normal visual inspection, Yes full ROM and Yes no lymphadenopathy Chest Chest palpation & inspection: normal inspection of the chest Resp Effort & Inspection: normal respiratory effort and able to speak in complete sentences Auscultation: clear to auscultation bilaterally Cardio Rate: regular rate Rhythm: regular rhythm GI Inspection: Yes normal to inspection General: Yes no CVA tenderness Back/Spine/Pelvis Back: no CVA tenderness Cervical Spine: normal cervical lordosis and cervical ROM normal Thoracic/Lumbar Spine: thoracic and lumbar spine normal to inspection and thoraco-lumbar ROM normal Neuro General: patient oriented x3 and moves all extremities Cranial nerves: Yes Equal, round and reactive pupils present Cognition (Neuro): normal cognition Motor exam (neuro): 5/5 motor strength present throughout Sensory Exam: Normal double simultaneous stimulation for sensation Coordination: [id number] test normal Extrem Other: left lower leg venous stasis dermatitis, mild swelling to the left lower leg General: Yes full ROM and Yes capillary refill normal Psych Appearance: grossly normal Mental Status: mental status grossly normal Affect: normal affect Attitude: cooperative Thought process: Normal thought process present Thought content: Normal thought content present Insight: Good insight present (Psych) Medical Decision Making [facility] Narrative Medical decision making narrative: Patient is a 76 year old assigned female at with a history of HTN, DM, DVT on anti-coagulant medication, and factor V deficiency presenting to the emergency department today with neck pain and left lower leg pain. Patient's physical exam showed left lower leg swelling and venous stasis dermatitis however, there was no evidence of infection. Patient's blood work showed an elevated ESR and CRP however, the patient's WBC count was normal. Patient's C- Spine XR showed no acute process. Patient's left lower leg US showed no acute process. Patient's left tib/fib x-ray showed signs of worsening venous stasis but was otherwise unremarkable. Patient's clinical presentation is most consistent with a cervical strain and worsening venous stasis dermatitis. I explained my physical exam findings as well as all test results to the patient. I answered all questions asked by the patient. I stressed the importance of the patient taking her medication as prescribed. I stressed the importance of the patient following up with her primary care provider, a airport operations specialist, and a vascular surgeon. I stressed the importance of the patient returning to the emergency department immediately if her symptoms were to worsen or if she were to develop any dizziness, shortness of breath, difficulty breathing, chest pain, blurry vision, loss of vision, nausea, vomiting, abdominal pain, fever, chills, back pain, or any other complaints. Patient verbalized agreement and understanding with this treatment plan and discharge. Medical Records Medical records reviewed: Yes I reviewed the patient's medical records. Lab Data Lab results reviewed: Yes I reviewed the patient's lab results. Result diagrams: 03/17/22 11:03/17/22 11:20 Labs: Lab Results 03/17/22 03/17/22 03/17/22 Range/Units 11:20 11:20 11:20 WBC 6.4 (4.8-10.8) X10*3/uL RBC 3.57 L (4.20-5.50) X10*6/uL Hgb 11.9 L (12.0-16.0) g/dl Hct 36.5 L (37.0-47.0) % MCV 102.2 H (80.0-98.0) fL MCH 33.3 H (27.0-33.0) pg MCHC 32.6 (31.0-35.0) g/dl RDW 12.0 (11.0-16.0) % Plt Count 172 (160-400) X10*3/uL MPV 8.4 L (9.4-12.3) fL Immature Gran % (Auto) 0.5 H (0.0-0.4) % Neut % (Auto) 78.9 H (45-73) % Lymph % (Auto) 12.1 L (20-40) % [place] % (Auto) 7.5 (2-11) % Eos % (Auto) 0.8 (0-4) % Baso % (Auto) 0.2 (0-2) % Lymph # (Auto) 0.8 L (1.2-4.9) X10*3/uL [place] # (Auto) 0.5 (0.1-1.2) X10*3/uL Eos # (Auto) 0.1 (0.0-0.4) X10*3/uL Baso # (Auto) 0.0 (0.0-0.2) X10*3/uL Abs Immat Gran (auto) 0.03 (0.00-0.03) X10*3/uL Absolute Neuts (auto) 5.0 (2.0-8.3) x10*3/uL Absolute Nucleated RBC 0.000 (0.0-0.012) X10*3/uL Nucleated RBC % (auto) 0.0 (0.0-0.2) /100WBC ESR 92 H (0-20) MM/HR PT 45.2 H (10.0-13.1) SEC INR 3.7 H (0.9-1.1) APTT 47.0 H (26.0-36.4) SEC Sodium (135-145) mmol/L Potassium (3.3-5.1) mmol/L Chloride (96-108) mmol/L Carbon Dioxide (22-29) mmol/L Anion Gap (12-20) BUN (9-16) mg/dL Creatinine (0.5-1.4) mg/dL Estim Creat Clear Calc Estimated GFR Random Glucose (60-115) mg/dL Calcium (8.4-10.2) mg/dL Total Bilirubin (0.0-1.0) mg/dL AST (5-31) U/L ALT (0-31) U/L Alkaline Phosphatase (39-117) U/L C-Reactive Protein (< or = 0.50) mg/dL Total Protein (6.5-8.0) g/dL Albumin (3.5-5.0) g/dL 03/17/ Range/Units 11:20 WBC (4.8-10.8) X10*3/uL RBC (4.20-5.50) X10*6/uL Hgb (12.0-16.0) g/dl Hct (37.0-47.0) % MCV (80.0-98.0) fL MCH (27.0-33.0) pg MCHC (31.0-35.0) g/dl RDW (11.0-16.0) % Plt Count (160-400) X10*3/uL MPV (9.4-12.3) fL Immature Gran % (Auto) (0.0-0.4) % Neut % (Auto) (45-73) % Lymph % (Auto) (20-40) % [place] % (Auto) (2-11) % Eos % (Auto) (0-4) % Baso % (Auto) (0-2) % Lymph # (Auto) (1.2-4.9) X10*3/uL [place] # (Auto) (0.1-1.2) X10*3/uL Eos # (Auto) (0.0-0.4) X10*3/uL Baso # (Auto) (0.0-0.2) X10*3/uL Abs Immat Gran (auto) (0.00-0.03) X10*3/uL Absolute Neuts (auto) (2.0-8.3) x10*3/uL Absolute Nucleated RBC (0.0-0.012) X10*3/uL Nucleated RBC % (auto) (0.0-0.2) /100WBC ESR (0-20) MM/HR PT (10.0-13.1) SEC INR (0.9-1.1) APTT (26.0-36.4) SEC Sodium 142 (135-145) mmol/L Potassium 4.1 (3.3-5.1) mmol/L Chloride 104 (96-108) mmol/L Carbon Dioxide 29 (22-29) mmol/L Anion Gap 13 (12-20) BUN 15 (9-16) mg/dL Creatinine 0.73 (0.5-1.4) mg/dL Estim Creat Clear Calc 69.7 Estimated GFR > 60 Random Glucose 132 H (60-115) mg/dL Calcium 8.3 L D (8.4-10.2) mg/dL Total Bilirubin 0.4 (0.0-1.0) mg/dL AST 15 (5-31) U/L ALT 19 (0-31) U/L Alkaline Phosphatase 73 (39-117) U/L C-Reactive Protein 11.20 H (< or = 0.50) mg/dL Total Protein 6.0 L (6.5-8.0) g/dL Albumin 3.3 L (3.5-5.0) g/dL Imaging Data Left lower leg US: Attestation: I personally reviewed and interpreted this imaging study as follows: My impression: No acute process. Radiologist's impression: EXAMINATION:? US VENOUS ULTRASOUND WITH DOPPLER LOWER EXTREMITY, LEFT CLINICAL INFORMATION:? Warm, redness and pain. History of blood clots. COMPARISON:? Previous exams most recent December 2019 TECHNIQUE: Ultrasound of the deep veins is performed from the hip to the calf with compression sonography and color and pulse Doppler assessment. Spectral analysis with color-flow imaging is performed. FINDINGS: There is normal venous compression and respiratory variation and augmented flow. The visualized common femoral vein, superficial femoral vein, profunda femoral vein, popliteal vein, and the trifurcation region shows no evidence of deep venous thrombosis. ? There is no significant popliteal fossa cyst. US/US venous duplex LE LT IMPRESSION: No DVT demonstrated in the left lower extremity. Dictated By: Celeste Peña MD Signed By: Electronically signed by Celeste Peña MD 03/17/22 1239 C-Spine X-ray: Attestation: I personally reviewed and interpreted this imaging study as follows: My impression: No acute process. Radiologist's impression: EXAMINATION: XR CERVICAL SPINE CLINICAL INFORMATION: Neck pain COMPARISON: None TECHNIQUE: 4 views of the cervical spine including swimmer's view were obtained. FINDINGS: The C1-C5 vertebral bodies are visualized. The C6 and C7 vertebral bodies are not well visualized. Bone alignment is normal. No fracture or dislocation. Degenerative spondylosis from C3-C4 to C5-C6. Degenerative disc narrowing at C5-C6. Degenerative changes at the C1 dens articulation. Normal prevertebral soft tissues. XR/XR cervical spine 2V IMPRESSION: Limited exam. C6 and C7 vertebral body is not well visualized. Degenerative changes. ? Dictated By: Celeste Peña MD Signed By: Electronically signed by Celeste Peña MD 03/17/22 1226 Left tib/fib x-ray: Attestation: I personally reviewed and interpreted this imaging study as follows: My impression: No acute puma process. Radiologist's impression: EXAMINATION: XR TIBIA AND FIBULA, LEFT CLINICAL INFORMATION: Lower leg swelling and pain? COMPARISON: Left ankle x-ray November 2017? TECHNIQUE: AP and lateral views of the left tibia and fibula were obtained. FINDINGS: Bone alignment is normal. No fracture or dislocation. Normal joint spaces. Osteophyte at the quadriceps tendon insertion to the patella. Diffuse soft tissue swelling. Soft tissue calcifications in the lower leg, increased anteriorly compared to previous ankle x-ray. XR/XR tibia fibula LT 2V IMPRESSION: Soft tissue swelling and soft tissue calcification is increased from November 2017 ankle x-ray. This may be related to venous stasis. Dictated By: Celeste Peña MD Signed By: Electronically signed by Celeste Peña MD 03/17/22 1226 Discharge Plan Discharge Clinical Impression: Venous stasis dermatitis, Cervical strain Patient Disposition: Home, Self-Care Instructions: Cervical Sprain (ED), Venous Insufficiency (DC) Additional Instructions: Follow up with your primary care provider. Return to the emergency department immediately if your symptoms worsen or if you develop any dizziness, shortness of breath, difficulty breathing, chest pain, blurry vision, loss of vision, nausea, vomiting, abdominal pain, fever, chills, back pain, or any other comp laints. Prescriptions: New cyclobenzaprine 5 mg tablet 5 mg PO TID PRN (Reason: muscle spasm) 7 Days Qty: 21 0RF No Action (DME) lancing device Misc See Rx Instructions .ROUTE .MEDSUPPLY Qty: 1 8RF Rx Instructions: ACCU-CHECK DARLINE DEVICE ammonium lactate 12 % cream 1 applic topical BID Qty: 140 6RF (DME) lancets [Accu-Chek Fastclix Lancet Drum] Misc See Rx Instructions .ROUTE .MEDSUPPLY Qty: 100 8RF Rx Instructions: Check blood sugars Twice a day amlodipine 5 mg tablet 5 mg PO DAILY Qty: 90 8RF atorvastatin 40 mg tablet 40 mg PO DAILY Qty: 90 8RF furosemide 20 mg tablet 20 mg PO DAILY Qty: 90 8RF lisinopril 40 mg tablet 40 mg PO DAILY Qty: 90 8RF phenytoin sodium extended 100 mg capsule 300 mg PO BID Qty: 360 8RF warfarin 5 mg tablet 5 mg PO DAILY Qty: 90 3RF Protocol: Dose Management Condition: Thursday (Week One) Dose/Route: 5 mg Instruction: 1 x 5 mg tablet Condition: Thursday Dose/Route: 5 mg Instruction: 1 x 5 mg tablet Condition: Thursday Dose/Route: 2.5 mg Instruction: 0.5 x 5 mg tablets Condition: Thursday Dose/Route: 5 mg Instruction: 1 x 5 mg tablet Condition: Dose/Route: 2.5 mg Instruction: 0.5 x 5 mg tablets Condition: Thursday Dose/Route: 5 mg Instruction: 1 x 5 mg tablet Condition: Thursday Dose/Route: 5 mg Instruction: 1 x 5 mg tablet Condition: Thursday (Week Two) Dose/Route: 5 mg Instruction: 1 x 5 mg tablet Condition: Thursday Dose/Route: 5 mg Instruction: 1 x 5 mg tablet Condition: Thursday Dose/Route: 2.5 mg Instruction: 0.5 x 5 mg tablets Condition: Thursday Dose/Route: 5 mg Instruction: 1 x 5 mg tablet Condition: Dose/Route: 5 mg Instruction: 1 x 5 mg tablet Condition: Thursday Dose/Route: 5 mg Instruction: 1 x 5 mg tablet Condition: Thursday Dose/Route: 5 mg Instruction: 1 x 5 mg tablet Protocol Text: Adjustment Start Date: Thursday03/11/22 INR Value: 3.8 INR Date: 03/11/22 Recheck Date: 03/18/22 Additional Instructions: INR is elevated decrease warfarin today to 2.5 and 2.5 on greens today and tomorrow then balance reds and greens in diet (DME) lancing device [Adjustable Lancing Device] Misc See Rx Instructions .Route Qty: 1 0RF Rx Instructions: As directed (DME) blood-glucose meter [Accu-Chek Guide Glucose Meter] Misc See Rx Instructions .Route Qty: 1 0RF Rx Instructions: As directed (DME) Blood Glucose Test Strip See Rx Instructions .Route Qty: 50 8RF Rx Instructions: test blood sugar twice a day peg 3350-electrolytes [Golytely] 236-22.74-6.74 -5.86 gram recon soln 240 ml PO Q10M 1 Days Qty: 4000 0RF Rx Instructions: until fecal effluent is clear; do not exceed a total volume of 2,000 mL warfarin 1 mg tablet 1 mg PO DAILY Qty: 90 0RF Protocol: Dose Management Condition: Thursday (Week One) Dose/Route: 5 mg Instruction: 1 x 5 mg tablet Condition: Thursday Dose/Route: 5 mg Instruction: 1 x 5 mg tablet Condition: Thursday Dose/Route: 2.5 mg Instruction: 0.5 x 5 mg tablets Condition: Thursday Dose/Route: 5 mg Instruction: 1 x 5 mg tablet Condition: Dose/Route: 2.5 mg Instruction: 0.5 x 5 mg tablets Condition: Thursday Dose/Route: 5 mg Instruction: 1 x 5 mg tablet Condition: Thursday Dose/Route: 5 mg Instruction: 1 x 5 mg tablet Condition: Thursday (Week Two) Dose/Route: 5 mg Instruction: 1 x 5 mg tablet Condition: Thursday Dose/Route: 5 mg Instruction: 1 x 5 mg tablet Condition: Thursday Dose/Route: 2.5 mg Instruction: 0.5 x 5 mg tablets Condition: Thursday Dose/Route: 5 mg Instruction: 1 x 5 mg tablet Condition: Dose/Route: 5 mg Instruction: 1 x 5 mg tablet Condition: Thursday Dose/Route: 5 mg Instruction: 1 x 5 mg tablet Condition: Thursday Dose/Route: 5 mg Instruction: 1 x 5 mg tablet Protocol Text: Adjustment Start Date: Thursday03/11/22 INR Value: 3.8 INR Date: 03/11/22 Recheck Date: 03/18/22 Additional Instructions: INR is elevated decrease warfarin today to 2.5 and 2.5 on greens today and tomorrow then balance reds and greens in diet multivitamin Tablet 1 tab PO DAILY cyanocobalamin (vitamin B-12) 1,000 mcg capsule 1,000 mcg PO DAILY (DME) [facility] See Rx Instructions .ROUTE .MEDSUPPLY Qty: 1 0RF Rx Instructions: TEST 2 TIMES DAILY esomeprazole magnesium [Nexium] 20 mg capsule,delayed release(DR/EC) 20 mg PO DAILY glipizide 5 mg tablet 5 mg PO DAILY nystatin 100,000 unit/gram cream 1 appl topical TID Qty: 30 1RF Referrals: [facility] [place] Group] [facility] [Provider Group] Jerry Spain MD [Primary Care Provider] - Stand Alone Forms: Work/School Release Interventions: ED Discharge Assessment Last Done: 03/17/22 12:55 Discharge Date/Time: 03/17/22 12:55 Print Language: Welsh
[2022-03-17 11:25] LABS: MANUAL DIFF FLAG NO
[2022-03-17 11:27] LABS: Basophils Percent Auto 0.2 % (0-2); Eosinophils Absolute Auto 0.1 X10*3/uL (0.0-0.4); Eosinophils Percent Auto 0.8 % (0-4); Hematocrit 36.5 % (37.0-47.0); Hemoglobin 11.9 g/dl (12.0-16.0); Imm Gran Abs Auto 0.03 X10*3/uL (0.00-0.03); Imm Gran Pct Auto 0.5 % (0.0-0.4); Lymphocytes Absolute Auto 0.8 X10*3/uL (1.2-4.9); Lymphocytes Percent Auto 12.1 % (20-40); Mean Corpuscular HGB Conc 32.6 g/dl (31.0-35.0); Mean Corpuscular Hemoglobin 33.3 pg (27.0-33.0); Mean Corpuscular Volume 102.2 fL (80.0-98.0); Mean Platelet Volume 8.4 fL (9.4-12.3); Monocytes Absolute Auto 0.5 X10*3/uL (0.1-1.2); Monocytes Percent Auto 7.5 % (2-11); Neutrophils Percent Auto 78.9 % (45-73); Platelet Count 172 X10*3/uL (160-400); Red Blood Count 3.57 X10*6/uL (4.20-5.50); White Blood Count 6.4 X10*3/uL (4.8-10.8)
[2022-03-17 11:34] LABS: INTERNATIONAL NORM RATIO 3.7 (0.9-1.1); Prothrombin Time 45.2 SEC (10.0-13.1)
[2022-03-17 11:52] LABS: Alanine Aminotransferase 19 U/L (0-31); Albumin Level 3.3 g/dL (3.5-5.0); Alkaline Phosphatase 73 U/L (39-117); Anion Gap 13 (12-20); Aspartate Amino Transferase 15 U/L (5-31); Bilirubin Total 0.4 mg/dL (0.0-1.0); Blood Urea Nitrogen 15 mg/dL (9-16); Calcium 8.3 mg/dL (8.4-10.2); Carbon Dioxide 29 mmol/L (22-29); Chloride 104 mmol/L (96-108); Creatinine Clr Calc Pharmacy 69.7; Estimated Glomerular Filt Rate > 60; Glucose Random 132 mg/dL (60-115); Potassium 4.1 mmol/L (3.3-5.1); Sodium 142 mmol/L (135-145)
[2022-03-17 12:05] LABS: Erythrocyte Sedimentation Rate 92 MM/HR (0-20)
== END 2022-03-17 12:55 | disposition home or self-care (01) ==
PROVIDERS: Physician Assistant Medical; Emergency Provider Emergency Medicine; PCP Internal Medicine
DX: I83.12 Varicose veins of left lower extremity with inflammation (principal); S16.1XXA Strain of muscle, fascia and tendon at neck level, initial encounter; X50.1XXA Overexertion from prolonged static or awkward postures, initial encounter; M79.662 Pain in left lower leg; E11.9 Type 2 diabetes mellitus without complications; I10 Essential (primary) hypertension; D68.2 Hereditary deficiency of other clotting factors; Z86.718 Personal history of other venous thrombosis and embolism; Z79.01 Long term (current) use of anticoagulants; Z79.02 Long term (current) use of antithrombotics/antiplatelets; Z79.899 Other long term (current) drug therapy; Y93.84 Activity, sleeping; Y92.032 Bedroom in apartment as the place of occurrence of the external cause; Y99.9 Unspecified external cause status
CPT/HCPCS: 36415; 72040; 73590; 80053; 85025; 85610; 85652; 85730; 86140; 93971; 99282; 99284

== ENCOUNTER → 2022-03-18 13:28 | Outpatient (BNVA) | payer MEDICARE, SELFPAY | PROVIDERS: PCP Internal Medicine; Visit Provider Internal Medicine | DX: I82.409 Acute embolism and thrombosis of unspecified deep veins of unspecified lower extremity (principal); Z79.01 Long term (current) use of anticoagulants; Z51.81 Encounter for therapeutic drug level monitoring | CPT/HCPCS: 85610; 99211 ==

== ENCOUNTER 2022-03-19 09:39 | Outpatient (RCR) | payer MEDICARE, SELFPAY | END 2022-03-25 14:07 | disposition home or self-care (01) | LOC: HO.WCC 09:39 | PROVIDERS: PCP Internal Medicine; Visit Provider Surgery | DX: Z09 Encounter for follow-up examination after completed treatment for conditions other than malignant neoplasm (principal); Q82.0 Hereditary lymphedema; I10 Essential (primary) hypertension; E11.9 Type 2 diabetes mellitus without complications; Z86.718 Personal history of other venous thrombosis and embolism | CPT/HCPCS: 99213 ==

== ENCOUNTER → 2022-03-25 13:26 | Outpatient (BNVA) | payer MEDICARE, SELFPAY | PROVIDERS: PCP Internal Medicine; Visit Provider Internal Medicine | DX: I82.409 Acute embolism and thrombosis of unspecified deep veins of unspecified lower extremity (principal); Z79.01 Long term (current) use of anticoagulants; Z51.81 Encounter for therapeutic drug level monitoring | CPT/HCPCS: 85610; 99211 ==

== ENCOUNTER 2022-04-01 13:53 | Outpatient (REF) | payer MEDICARE, SELFPAY ==
[2022-04-01 14:17] LABS: Prothrombin Time 70.1 SEC (10.0-13.1)
[2022-04-01 14:25] LABS: INTERNATIONAL NORM RATIO 5.7 (0.9-1.1)
== END 2022-04-01 13:54 | disposition home or self-care (01) ==
LOC: HO.LAB 13:53
PROVIDERS: Visit Provider Internal Medicine
DX: Z86.718 Personal history of other venous thrombosis and embolism (principal); Z51.81 Encounter for therapeutic drug level monitoring; Z79.01 Long term (current) use of anticoagulants
CPT/HCPCS: 36415; 85610; 99212

== ENCOUNTER → 2022-04-03 10:03 | Outpatient (BNVA) | payer MEDICARE, SELFPAY | PROVIDERS: PCP Internal Medicine; Visit Provider Internal Medicine | DX: Z86.718 Personal history of other venous thrombosis and embolism (principal); Z79.01 Long term (current) use of anticoagulants; Z51.81 Encounter for therapeutic drug level monitoring | CPT/HCPCS: 85610; 99211 ==

== ENCOUNTER → 2022-04-15 14:10 | Outpatient (BNVA) | payer MEDICARE, SELFPAY | PROVIDERS: PCP Internal Medicine; Visit Provider Internal Medicine | DX: I82.409 Acute embolism and thrombosis of unspecified deep veins of unspecified lower extremity (principal); Z79.01 Long term (current) use of anticoagulants; Z51.81 Encounter for therapeutic drug level monitoring | CPT/HCPCS: 85610; 99211 ==

== ENCOUNTER → 2022-04-22 13:01 | Outpatient (BNVA) | payer MEDICARE, SELFPAY | PROVIDERS: PCP Internal Medicine; Visit Provider Internal Medicine | DX: I82.409 Acute embolism and thrombosis of unspecified deep veins of unspecified lower extremity (principal); Z79.01 Long term (current) use of anticoagulants; Z51.81 Encounter for therapeutic drug level monitoring | CPT/HCPCS: 85610; 99211 ==

== ENCOUNTER → 2022-05-09 13:24 | Outpatient (BNVA) | payer MEDICARE, SELFPAY | PROVIDERS: PCP Internal Medicine; Visit Provider Internal Medicine | DX: I82.409 Acute embolism and thrombosis of unspecified deep veins of unspecified lower extremity (principal); Z79.01 Long term (current) use of anticoagulants; Z51.81 Encounter for therapeutic drug level monitoring | CPT/HCPCS: 85610; 99211 ==

== ENCOUNTER → 2022-05-15 13:15 | Outpatient (BNVA) | payer MEDICARE, SELFPAY | PROVIDERS: PCP Internal Medicine; Visit Provider Internal Medicine | DX: I82.409 Acute embolism and thrombosis of unspecified deep veins of unspecified lower extremity (principal); Z79.01 Long term (current) use of anticoagulants; Z51.81 Encounter for therapeutic drug level monitoring | CPT/HCPCS: 85610; 99211 ==

== ENCOUNTER 2022-05-20 06:56 | Day surgery (SDC) | payer MEDICARE, SELFPAY ==
[2022-05-15 10:36] VITALS: BMI 43.1
--- NOTE | 2022-05-19 12:03 | HO.ANESPROP2 ---
Documented by User: Alysia Hampton NP 05/19/22 12:07 HPI - Anesthesia Eval Consult details Narrative: 76yo F for Upper Endoscopy and Colonoscopy Warfarin, Factor V/hx of DVT, lovenox bridge PMFSH Active Problems Active Problems: All Active Problems (Updated 04/29/22 @ 14:23 by Jerry Spain MD) Anxiety (Acute) UTI (urinary tract infection) (Acute) Tubular adenoma of colon (Acute) Claudia infection (Acute) Dysuria (Acute) Fatigue (Acute) Duodenal diverticulum (Acute) Asthma (Acute) Chronic anticoagulation (Acute) Factor V deficiency (Acute) COVID-19 (Acute) Physical exam (Acute) Hyperlipidemia (Acute) Hypertension (Acute) Diabetes mellitus with coincident hypertension (Acute) Hematoma and contusion (Acute) Tinea pedis (Acute) Current use of anticoagulant therapy (Acute) Knee pain (Acute) Past Medical History Medical History Diabetes mellitus with coincident hypertension DVT (deep venous thrombosis) Hyperlipidemia Hypertension Family History Family History Father Asthma Mother Diabetes Hypertension Colon cancer Other Substance use disorder Surgical History Surgical History History of appendectomy History of cholecystectomy History of lumpectomy of right breast Social History Social History Housing: House Alcohol intake: never Patient Tobacco Use Status: Never used Tobacco e-Cigarette/Vaping Use: Never Used Second Hand Smoke Exposure: No Advance Directives Date on File: 02/08/20 service: No Current occupational status: employed Cognitive needs: No Hearing needs: No Vision needs: No Meds Allergies Allergy/AdvReac Type Severity Reaction Status Date / Time shrimp [SHRIMP] Allergy Mild HIVES Verified 05/15/22 13:49 Home Medications Medication Instructions Recorded Confirmed Last Taken Type cyanocobalamin (vitamin B-12) 1,000 mcg PO DAILY 02/03/20 05/15/22 Unknown History 1,000 mcg capsule multivitamin 1 tab PO DAILY 02/03/20 05/15/22 Unknown History esomeprazole magnesium 20 mg 20 mg PO DAILY 01/08/22 05/15/22 05/20/22 History capsule,delayed release (Nexium) 20 mg glipizide 5 mg tablet 5 mg PO DAILY 01/16/22 05/15/22 Unknown History Exam Exam Date and Time: May 19, 2022 1203 Height,Weight and Vital Signs: Height 5 ft 2 in Weight 107.048 kg Pertinent Lab Results Pertinent Lab Results: Laboratory Tests 03/17/22 03/17/22 11:20 11:20 WBC 6.4 Hgb 11.9 L Hct 36.5 L Plt Count 172 Sodium 142 Potassium 4.1 Chloride 104 Carbon Dioxide 29 BUN 15 Creatinine 0.73 Narrative Narrative: EKG 08/2021 Vent. Rate : 097 BPM ? ? Atrial Rate : 097 BPM ?? P-R Int : 146 ms? QRS Dur : 092 ms ? ? QT Int : 362 ms ? ? ? P-R-T Axes : -07 126 030 degrees ?? QTc Int : 459 ms ? Normal sinus rhythm Inferior-posterior infarct , age undetermined Abnormal ECG No previous ECGs available Assessment and Plan Assessment Anesthesia Assessment: Chart Reviewed Documented by User: Joey Redmond MD 05/20/22 16:39 [facility] Past Medical History Medical History Diabetes mellitus with coincident hypertension DVT (deep venous thrombosis) Hyperlipidemia Hypertension Family History Family History Father Asthma Mother Diabetes Hypertension Colon cancer Other Substance use disorder Family history of problems with anesthesia: No Surgical History Surgical History History of appendectomy History of cholecystectomy History of lumpectomy of right breast History of Problems with Anesthesia: Yes (Ponv ) Social History Social History Housing: House Alcohol intake: never Patient Tobacco Use Status: Never used Tobacco e-Cigarette/Vaping Use: Never Used Second Hand Smoke Exposure: No Advance Directives Date on File: 02/08/20 service: No Current occupational status: employed Cognitive needs: No Hearing needs: No Vision needs: No Meds Allergies Allergy/AdvReac Type Severity Reaction Status Date / Time shrimp [SHRIMP] Allergy Mild HIVES Verified 05/15/22 13:49 Home Medications Medication Instructions Recorded Confirmed Last Taken Type cyanocobalamin (vitamin B-12) 1,000 mcg PO DAILY 02/03/20 05/15/22 Unknown History 1,000 mcg capsule multivitamin 1 tab PO DAILY 02/03/20 05/15/22 Unknown History esomeprazole magnesium 20 mg 20 mg PO DAILY 01/08/22 05/15/22 05/20/22 History capsule,delayed release (Nexium) 20 mg glipizide 5 mg tablet 5 mg PO DAILY 01/16/22 05/15/22 Unknown History Exam Airway Mallampati Class: III TM Dist: >3cm Neck ROM: Full Loose/Missing/Broken Teeth: Yes (Poor dentition ) Heart: S1,S2 Lungs: b/l breath sounds Assessment and Plan Assessment Anesthesia Assessment: Anesthesia Plan Discussed Final Anesthetic Review Family History of Problems with Anesthesia: No History of Problems with Anesthesia: Yes (Ponv ) NPO: Yes ASA Class: III Final Preanesthetic Review: Meds/Allgs Chart Reviewed, Consent Obtained/Reviewed and Anes Risks/Benef Reviewed Patient Risk: Intermediate Procedure Risk: Intermediate Anesthetic Plan Anesthetic Plan: MAC: Disposition: Standard PACU
[2022-05-20 07:37] VITALS: PULSE 83; TEMP 36.3
[2022-05-20 07:40] VITALS: BP 166/66; PULSE 73; RESP 16; TEMP 36.3; O2SAT 96; BMI 40.2
[2022-05-20 07:46] LABS: Prothrombin Time 11.9 SEC (10.0-13.1)
[2022-05-20 07:46] LABS: Glucose, Whole Blood 125 mg/dL (60-115)
[2022-05-20] MEDS: Lactated Ringers 1,000 ML 100 ML IVCONT (07:55)
--- NOTE | 2022-05-20 08:12 | P.HPSUR_ITS ---
Pre-Procedural Eval Section A Date of Service: 05/20/22 The patient is an INPATIENT: No The History & Physical has been completed within 30 days and I have reviewed it.: No Section B Chief Complaint: screening, GERD, abnormal CT scan Details of Present Illness: Colon cancer screening, GERD, abnormal CT scan of the colon Relevant Family History (Specify if Yes): Yes Relevant Social History: None Present Medications: see Short Stay Collaborative assessment Medical History: Significant History (Diabetes mellitus with coincident hy pertension DVT (deep venous thrombosis) Hyperlipidemia Hypertension) History of Previous Operations: Relevant previous surgery/procedure and date(s) (History of appendectomy History of cholecystectomy History of lumpectomy of right breast) Allergies: Allergies Allergy/AdvReac Type Severity Reaction Status Date / Time shrimp [SHRIMP] Allergy Mild HIVES Verified 05/15/22 13:49 Review of Systems Sugical H&P ROS: Negative: Constitution, Cardiovascular, Respiratory and Gastrointestinal Exam Surgical H&P Exam: Normal: Heart, Normal: Lungs, Normal: Extremities and Normal: Abdomen Plan Diagnosis/Plan: Change (proceed with EGD (GERD, abnormal CT scan of duodenum and Colonoscopy (screening)) I have reviewed the history and physical and performed a pertinent physical examination on my patient. No changes have occurred unless specified. Time Spent With Patient Time: Total time managing care of this patient today ____ minutes.
--- NOTE | 2022-05-20 08:22 | PM.OP ---
Brief Operative Note Date of Service: 05/20/22 Pre-op diagnosis: COLON CANCER SCREENING, HISTORY OF COLON POLYPS, GERD, ABNORMAL CT SCAN OF THE DUODENUM Post-op diagnosis: other (Esophagitis, gastritis, colon polyps, diverticulosis) Procedure: UPPER ENDOSCOPY WITH BIOPSIES COLONOSCOPY TILL CECUM WITH THE SNARE POLYPECTOMY Surgeon: Tee Washington MD Anesthesia: MAC Was an Medical Technologist Chemistry used for this Procedure?: Yes Medical Technologist Chemistry: Nayeli Soto Estimated blood loss (mL): 0 Pathology: other (A:Gastric antrum run for H: pylori B:cecal polyp c: Ascending colon polyp) Condition: stable Disposition: PACU
--- NOTE | 2022-05-20 08:23 | W.PM.OPN ---
Operative Note Operative Note Date of Service: 05/20/22 Narrative: Pre-op diagnosis: COLON CANCER SCREENING, HISTORY OF COLON POLYPS, GERD, ABNORMAL CT SCAN OF THE DUODENUM Post-op diagnosis:?other (Esophagitis, gastritis, colon polyps, diverticulosis) Surgeon: Tee Washington MD Anesthesia:?MAC FLEXIBLE TRANSORAL UPPER GASTROINTESTINAL ENDOSCOPY WITH BIOPSIES AND COLONOSCOPY TILL CECUM WITH SNARE POLYPECTOMY UPPER ENDOSCOPY Consent: Indications for the procedure and potential complications of bleeding, perforation, reaction to medications and missed diagnosis were discussed with the patient and informed consent was obtained. Instrument: Olympus GIF H 190 mid size upper endoscope Monitoring: Vital signs and clinical assessment, continuous EKG monitoring, Pulse oximetry, Carbon Dioxide monitoring and blood pressure monitoring were done throughout the procedure. Procedure: The patient was placed in the left lateral decubitis position and pre-procedure medications were administered and a bite block was placed. The endoscope was inserted into the mouth and advanced under direct vision to the third part of duodenum. A careful inspection was made as the upper endoscope was withdrawn including a retroflexed examination of the proximal stomach; Findings and interventions are described below. Findings: Larynx: Normal Esophagus: GE junction at 36 cms. Focal esophagitis at GE junction. No Gaspar's. Stomach: Moderate gastric erythema - antral biopsies were obtained to check for H pylori. Grade 2 flap valve on retroflexed examination of the cardia. Duodenum: Normal bulb and a medium sized diverticulum in the medial wall of descending duodenum (adjacent to duodenal papilla). No ulcers noted Intervention: Biopsies as noted above COLONOSCOPY PROCEDURE NOTE Consent: Indications for the procedure and potential complications of bleeding, perforation, reaction to medications and missed diagnosis were discussed with the patient and informed consent was obtained. Instrument: Olympus PCF H 190 L variable stiffness pediatric colonoscope Monitoring: Vital signs and clinical assessment, intermittent blood pressure monitoring, continuous EKG monitoring, Pulse oximetry and Carbon Dioxide monitoring were done throughout the procedure. Colon withdrawl time was 24 minutes. Procedure: The patient was placed in the left lateral decubitis position and pre-procedure medications were administered. After a digital rectal examination of the ano-rectum, the video colonoscope was inserted into the rectum and advanced through the colon to the cecum. The colonoscope was slowly withdrawn in a retrograde panoramic fashion and the colon mucosa was carefully examined including a retroflexed view of the rectum. Findings and interventions are described below. Procedure Difficulty: : Without difficulty Findings: Terminal Ileum: Not evaluated Cecum: A 7-8 mm diminutive appearing polyp, adjacent to appendicular orifice, removed with a cold biopsy Ascending Colon: Two 12-15 mm sessile polyps removed with a hot snare. Scattered moderate diverticulosis Transverse Colon: Scattered moderate diverticulosis Descending Colon: Scattered moderate diverticulosis Sigmoid Colon: Moderate diverticulosis Rectum: Normal Ano-rectum: Perianal skin tags Colon preparation: Good in the transverse and left colon and fair in the right colon due to adherent stool which could not be suctioned Impression and Post Procedure Diagnosis: Endoscopy Findings: ESOPHAGUS: GE junction at 36 cms. Focal esophagitis at GE junction. No Gaspar's. STOMACH: Moderate gastric erythema - antral biopsies were obtained to check for H pylori. Grade 2 flap valve on retroflexed examination of the cardia. DUODENUM: Normal bulb and a medium sized diverticulum in the medial wall of descending duodenum (adjacent to duodenal papilla). No ulcers noted Colonoscopy Findings: Three small to medium sized polyps removed Moderate diverticulosis seen in the entire colon Plan: Await pathology results Patient has an appointment on 06/03/22 in the [facility] with Justa Pires NP. Repeat Colonoscopy interval based on path results - in 3 years if polyps are adenomatous and 5 years if polyps are hyperplastic (hx of colon polyps). Above findings were reviewed with the patient and GERD, colon polyps and diverticulosis handouts were given in the discharge area
[2022-05-20 09:26] VITALS: BP 132/63; PULSE 79; RESP 16; TEMP 36.9; O2SAT 99
[2022-05-20 09:41] VITALS: BP 151/54; PULSE 78; RESP 18; TEMP 36.8; O2SAT 95
== END 2022-05-20 10:08 | disposition home or self-care (01) ==
PROVIDERS: Nurse Practitioner; PCP Internal Medicine; Visit Provider Internal Medicine Gastroenterology
PROC: (CPT 45385; principal; 2022-05-20 08:30)
DX: Z12.11 Encounter for screening for malignant neoplasm of colon (principal); Z86.010 Personal history of colon polyps; D12.2 Benign neoplasm of ascending colon; K63.5 Polyp of colon; K57.30 Diverticulosis of large intestine without perforation or abscess without bleeding; K64.4 Residual hemorrhoidal skin tags; K21.9 Gastro-esophageal reflux disease without esophagitis; K57.10 Diverticulosis of small intestine without perforation or abscess without bleeding; K20.80 Other esophagitis without bleeding; K29.50 Unspecified chronic gastritis without bleeding; I10 Essential (primary) hypertension; E78.5 Hyperlipidemia, unspecified; J45.909 Unspecified asthma, uncomplicated; D68.2 Hereditary deficiency of other clotting factors; E11.9 Type 2 diabetes mellitus without complications; Z86.718 Personal history of other venous thrombosis and embolism; Z79.01 Long term (current) use of anticoagulants; Z79.84 Long term (current) use of oral hypoglycemic drugs; Z79.899 Other long term (current) drug therapy
CPT/HCPCS: 45385; 45380; 43239; 36415; 82947; 85610; 88305; 88342

== ENCOUNTER → 2022-05-23 13:25 | Outpatient (BNVA) | payer MEDICARE, SELFPAY | PROVIDERS: PCP Internal Medicine; Visit Provider Internal Medicine | DX: I82.409 Acute embolism and thrombosis of unspecified deep veins of unspecified lower extremity (principal); Z79.01 Long term (current) use of anticoagulants; Z51.81 Encounter for therapeutic drug level monitoring | CPT/HCPCS: 85610; 99211 ==

== ENCOUNTER → 2022-05-26 13:00 | Outpatient (BNVA) | payer MEDICARE, SELFPAY | PROVIDERS: PCP Internal Medicine; Visit Provider Internal Medicine | DX: I82.409 Acute embolism and thrombosis of unspecified deep veins of unspecified lower extremity (principal); Z79.01 Long term (current) use of anticoagulants; Z51.81 Encounter for therapeutic drug level monitoring | CPT/HCPCS: 85610; 99211 ==

== ENCOUNTER → 2022-05-29 09:54 | Outpatient (BNVA) | payer MEDICARE, SELFPAY | PROVIDERS: PCP Internal Medicine; Visit Provider Internal Medicine | DX: I82.409 Acute embolism and thrombosis of unspecified deep veins of unspecified lower extremity (principal); Z79.01 Long term (current) use of anticoagulants; Z51.81 Encounter for therapeutic drug level monitoring | CPT/HCPCS: 85610; 99211 ==

== ENCOUNTER → 2022-06-03 11:03 | Outpatient (BNVA) | payer MEDICARE, SELFPAY | PROVIDERS: PCP Internal Medicine; Visit Provider Nurse Practitioner | DX: D12.2 Benign neoplasm of ascending colon (principal); K57.30 Diverticulosis of large intestine without perforation or abscess without bleeding; Z80.0 Family history of malignant neoplasm of digestive organs; Z98.890 Other specified postprocedural states | CPT/HCPCS: 99212 ==

== ENCOUNTER 2022-06-05 21:47 | Emergency (ER) | payer MEDICARE, SELFPAY ==
--- NOTE | ~2022-06-05 | XR_ITS ---
EXAMINATION: XR CHEST CLINICAL INFORMATION: Cough. Wheezing. COMPARISON: 09/02/2021 TECHNIQUE: 2 views of the chest were obtained. FINDINGS: Diffuse mild bronchial thickening. Streaky opacities in the left mid and lower lung. No pleural effusion or pneumothorax. Normal heart size and vascularity. No acute osseous abnormalities. XR/XR chest 2V IMPRESSION: * Diffuse mild bronchial thickening suggestive of bronchitis. * Streaky opacities in the left mid and lower lung could represent subsegmental atelectasis or infiltrate.
[2022-06-05 22:24] VITALS: BP 155/67; PULSE 89; RESP 20; TEMP 36.6; O2SAT 94; BMI 40.0
[2022-06-05 22:47] LABS: COVID-19 Test Positive (Negative); IDNOW Serial# 6674DD1D
[2022-06-05 22:56] LABS: IDNOW Serial# 55D5AD1C; Influenza A Negative (Negative); Influenza B2 Negative (Negative)
--- NOTE | 2022-06-06 00:14 | ED_ITS ---
HPI - URI/Sore Throat General Chief Complaint: Upper Respiratory Symptoms Stated Complaint: congested Time Seen by Provider: 06/06/22 00:04 Source: patient Mode of arrival: ambulatory Limitations: no limitations History of Present Illness HPI Narrative: 76-year-old female with history of hypertension, hyperlipidemia, diabetes who presents with complaints of non-productive cough, congestion for the last 3 days. No difficulty breathing, chest pain, fevers, leg swelling or leg pain, vomiting, diarrhea, abdominal pain. Related Data Home Medications Medication Instructions Recorded Confirmed cyanocobalamin (vitamin B-12) 1,000 mcg PO DAILY 02/03/20 05/29/22 1,000 mcg capsule multivitamin 1 tab PO DAILY 02/03/20 05/29/22 esomeprazole magnesium 20 mg 20 mg PO DAILY 01/08/22 05/29/22 capsule,delayed release (Nexium) glipizide 5 mg tablet 5 mg PO DAILY 01/16/22 05/29/22 Previous Rx's Medication Instructions Recorded lancing device #1 ea 02/10/20 ammonium lactate 12 % topical cream 1 applic topical BID #140 grams 03/08/20 lancets (Accu-Chek Fastclix Lancet #100 ea 02/11/21 Drum) blood-glucose meter #1 ea 09/27/21 amlodipine 5 mg tablet 5 mg PO DAILY #90 tabs 10/11/21 atorvastatin 40 mg tablet 40 mg PO DAILY #90 tabs 10/11/21 furosemide 20 mg tablet 20 mg PO DAILY #90 tabs 10/11/21 lisinopril 40 mg tablet 40 mg PO DAILY #90 tabs 10/11/21 phenytoin sodium extended 100 mg 300 mg PO BID #360 caps 10/11/21 capsule warfarin 5 mg tablet 5 mg PO DAILY #90 tabs 10/11/21 lancing device (Adjustable Lancing #1 ea 10/15/21 Device) blood-glucose meter (Accu-Chek #1 ea 11/25/21 Guide Glucose Meter) blood sugar diagnostic (Blood #50 ea 11/26/21 Glucose Test strips) nystatin 100,000 unit/gram topical 1 appl topical TID #30 grams 01/16/22 cream lorazepam 0.5 mg tablet 0.5 mg PO TID PRN anxiety #90 tabs 04/29/22 warfarin 1 mg tablet 1 mg PO DAILY #90 tabs 06/05/22 Allergies Allergy/AdvReac Type Severity Reaction Status Date / Time shrimp [SHRIMP] Allergy Mild HIVES Verified 06/05/22 22:24 No Known Drug Allergies Allergy Unknown Unknown Verified 06/05/22 22:24 Review of Systems Review of Systems: Yes all other systems are reviewed and are negative Constitutional: Constitutional: Reports no additional constitutional complaints, Denies body ache(s), Denies chills, Denies fever(s), Denies headache(s) and Denies weakness Eyes: Eyes: Reports no additional eye complaints and Denies change in vision ENT: Reports system reviewed and no additional complaints, except as documented, Denies dizziness, Denies headache(s), Reports nasal congestion, Denies nasal discharge and Denies neck pain Cardiovascular: Cardiovascular: Reports no additional cardiovascular complaints, Denies chest pain, Denies leg edema and Denies dyspnea Respiratory: Respiratory: Reports no additional respiratory complaints, Reports cough and Denies dyspnea Gastrointestinal: Gastrointestinal: Reports no additional gastrointestinal complaints, Denies abdominal pain, Denies diarrhea, Denies nausea and Denies vomiting Genitourinary: Genitourinary: Reports no additional female genitourinary complaints and Denies urinary incontinence Musculoskeletal: Musculoskeletal: Reports no additional musculoskeletal complaints, Denies back pain, Denies arthralgias, Denies joint swelling, Denies neck pain, Denies numbness and Denies tingling Integumentary/Breasts: Skin/Breast: Reports system reviewed and no additional complaints, except as docu and Denies rash Neurologic: Reports system reviewed and no additional complaints, except as documented, Denies Abnormal speech present, Denies dizziness, Denies headache(s), Denies numbness, Denies tingling and Denies weakness [facility] Past Medical History Attestation statement: The following information was validated with the patient. Source: old records reviewed and nursing notes reviewed Medical History Diabetes mellitus with coincident hypertension DVT (deep venous thrombosis) Hyperlipidemia Hypertension Surgical History History of appendectomy History of cholecystectomy History of lumpectomy of right breast Family History Family History Father Asthma Mother Diabetes Hypertension Colon cancer Other Substance use disorder Social History Social History Housing: House Alcohol intake: never Patient Tobacco Use Status: Never used Tobacco e-Cigarette/Vaping Use: Never Used Second Hand Smoke Exposure: No Advance Directives: No Advance Directives Date on File: 02/08/20 service: No Current occupational status: employed Cognitive needs: No Hearing needs: No Vision needs: No Physical Exam Vital Signs: Vital Signs: Last Vital Signs Temp 97.8 F 06/05/22 22:24 Pulse 89 06/05/22 22:24 Resp 20 06/05/22 22:24 BP 155/67 H 06/05/22 22:24 Pulse Ox 94 06/05/22 22:24 O2 Del Method 06/05/22 22:24 BMI result Body Mass Index 40.0 Const: General: cooperative, healthy appearing, comfortable and no acute distress Orientation/consciousness: patient oriented x3 Limitations: no limitations HEENT: Head: Yes normal to inspection Ears: hearing grossly normal bilaterally and TM's normal bilaterally General nose exam: Normal external nose present Face and sinus: Yes normal facial exam Mouth: Normal oral and palatal mucosa present Throat: Yes posterior oropharynx normal, Yes tonsils normal and Yes uvula midline Eyes: General: appearance normal, both eyes and all related structures Pupils: Equal, round and reactive pupils present Neck: Neck: Yes normal visual inspection, Yes full ROM, Yes no lymphadenopathy and Yes no meningeal signs Chest: Chest palpation & inspection: normal inspection of the chest Resp: Effort & Inspection: normal respiratory effort Auscultation: clear to auscultation bilaterally Cardio: Rate: regular rate Rhythm: regular rhythm Peripheral pulses: Peripheral pulses 2+ throughout GI: Inspection: Yes normal to inspection Palpation (GI): Soft to palpation and nontender Auscultation: normal bowel sounds Back/Spine/Pelvis: Thoracic/Lumbar Spine: thoracic and lumbar spine normal to inspection Skin: General skin exam: no rashes or lesions noted Neuro: General: patient oriented x3, no meningeal signs, no focal motor deficits and normal sensation to monofilament Cranial nerves: Yes Equal, round and reactive pupils present Cognition (Neuro): normal cognition Speech: No Abnormal speech present Gait exam (Neuro): Normal gait present Motor exam (neuro): 5/5 motor strength present throughout Extrem: General: Yes normal to inspection, Yes no pedal edema and Yes no calf tenderness Course Course Course Narrative: I went to give the patient the results of her x-ray. She was artery informed that she is COVID positive and she had eloped from the emergency room. Medications Administered Discontinued Medications Generic Name Dose Route Start Last Admin Trade Name Everardoq PRN Reason Stop Dose Admin Albuterol Sulfate 2 puff 06/06/22 00:11 06/06/22 01:20 Albuterol Sulfate 90 Mcg 8 Gm Inhaler INHALE 06/06/22 00:12 2 puff ONCE ONE Administration Medical Decision Making Medical Decision Making MDM Narrative: 76-year-old female here with cough and congestion for 3 days. VSS. LS CTA. Will obtain COVID swab, chest x-ray and give albuterol MDI Differential Diagnosis Differential Diagnoses: The differential diagnosis associated with the presentation includes Viral syndrome, pneumonia, COVID-19 Less likely PE Lab Data MDM Lab Attestation statement: I reviewed the patient's lab results. Labs: Lab Results 06/05/22 06/05/22 Range/Units 22:33 22:33 COVID-19 ([place]) Positive A (Negative) COVID-19 Clin Com See Note Influenza Type A ([place]) Negative (Negative) Influenza Type B ([place]) Negative (Negative) Influenza A & B Note See Note Independent Interpretation I performed an independent interpretation of an: Plain X-Ray Interpretation: I independently reviewed the chest x-ray and agree with radiologist's report Radiology Impression Discussion of test interpretation with radiology: I have reviewed the radiologist's reading. Radiologist Impression: [address] [address] XRay Report Signed Patient: Mary Jane Carpenter MR#: [id number] : 1945 Acct:[id number] Age/Sex: 76 / F ADM Date: 06/05/22 Loc: .ED Attending Dr: Ordering Physician: Norma Bragg NP Date of Service: 06/06/22 Procedure(s): XR chest 2V Accession Number(s): [id number] cc: Norma Bragg NP~ EXAMINATION: XR CHEST CLINICAL INFORMATION: Cough. Wheezing. COMPARISON: 09/02/2021 TECHNIQUE: 2 views of the chest were obtained. FINDINGS: Diffuse mild bronchial thickening. Streaky opacities in the left mid and lower lung. No pleural effusion or pneumothorax. Normal heart size and vascularity. No acute osseous abnormalities. XR/XR chest 2V IMPRESSION: *? Diffuse mild bronchial thickening suggestive of bronchitis. *? Streaky opacities in the left mid and lower lung could represent subsegmental atelectasis or infiltrate. ? Discharge Plan Discharge Clinical Impression: COVID-19 Patient Disposition: Elopement Instructions: COVID-19 (Coronavirus Disease 2019) (ED) Additional Instructions: Quarantine for 5 days Take Motrin or Tylenol if able for pain or fever Increase fluids, rest Return for difficulty breathing, chest pain Follow-up with primary care doctor as discussed Prescriptions: No Action (DME) lancing device Misc See Rx Instructions .ROUTE .MEDSUPPLY Qty: 1 8RF Rx Instructions: ACCU-CHECK DARLINE DEVICE ammonium lactate 12 % cream 1 applic topical BID Qty: 140 6RF (DME) lancets [Accu-Chek Fastclix Lancet Drum] Misc See Rx Instructions .ROUTE .MEDSUPPLY Qty: 100 8RF Rx Instructions: Check blood sugars Twice a day amlodipine 5 mg tablet 5 mg PO DAILY Qty: 90 8RF atorvastatin 40 mg tablet 40 mg PO DAILY Qty: 90 8RF furosemide 20 mg tablet 20 mg PO DAILY Qty: 90 8RF lisinopril 40 mg tablet 40 mg PO DAILY Qty: 90 8RF phenytoin sodium extended 100 mg capsule 300 mg PO BID Qty: 360 8RF warfarin 5 mg tablet 5 mg PO DAILY Qty: 90 3RF Hold Instructions: Resume on 05/22/22. resume warfarin on 05/22/22 Protocol: Dose Management Condition: Thursday (Week One) Dose/Route: 7.5 mg Instruction: 1.5 x 5 mg tablets Condition: Thursday Dose/Route: 5 mg Instruction: 1 x 5 mg tablet Condition: Thursday Dose/Route: 5 mg Instruction: 1 x 5 mg tablet Condition: Thursday Dose/Route: 2.5 mg Instruction: 0.5 x 5 mg tablets Condition: Dose/Route: 5 mg Instruction: 1 x 5 mg tablet Condition: Thursday Dose/Route: 2.5 mg Instruction: 0.5 x 5 mg tablets Condition: Thursday Dose/Route: 5 mg Instruction: 1 x 5 mg tablet Condition: Thursday (Week Two) Dose/Route: 5 mg Instruction: 1 x 5 mg tablet Condition: Thursday Dose/Route: 2.5 mg Instruction: 0.5 x 5 mg tablets Condition: Thursday Dose/Route: 5 mg Instruction: 1 x 5 mg tablet Condition: Thursday Dose/Route: 5 mg Instruction: 1 x 5 mg tablet Condition: Dose/Route: 5 mg Instruction: 1 x 5 mg tablet Condition: Thursday Dose/Route: 2.5 mg Instruction: 0.5 x 5 mg tablets Condition: Thursday Dose/Route: 5 mg Instruction: 1 x 5 mg tablet Protocol Text: Adjustment Start Date: 05/29/22 INR Value: 2.5 INR Date: 05/29/22 Recheck Date: 06/09/22 Additional Instructions: RESUME USUAL DIET- EAT A MIX OF REDS AND GREENS, WILL KEEP LITTLE HIGHER DOSE OF WARFARIN X 10DAYS, S/P COLONOSCOPY (DME) lancing device [Adjustable Lancing Device] Misc See Rx Instructions .Route Qty: 1 0RF Rx Instructions: As directed (DME) blood-glucose meter [Accu-Chek Guide Glucose Meter] Misc See Rx Instructions .Route Qty: 1 0RF Rx Instructions: As directed (DME) Blood Glucose Test Strip See Rx Instructions .Route Qty: 50 8RF Rx Instructions: test blood sugar twice a day warfarin 1 mg tablet 1 mg PO DAILY Qty: 90 0RF Protocol: Dose Management Condition: Thursday (Week One) Dose/Route: 7.5 mg Instruction: 1.5 x 5 mg tablets Condition: Thursday Dose/Route: 5 mg Instruction: 1 x 5 mg tablet Condition: Thursday Dose/Route: 5 mg Instruction: 1 x 5 mg tablet Condition: Thursday Dose/Route: 2.5 mg Instruction: 0.5 x 5 mg tablets Condition: Dose/Route: 5 mg Instruction: 1 x 5 mg tablet Condition: Thursday Dose/Route: 2.5 mg Instruction: 0.5 x 5 mg tablets Condition: Thursday Dose/Route: 5 mg Instruction: 1 x 5 mg tablet Condition: Thursday (Week Two) Dose/Route: 5 mg Instruction: 1 x 5 mg tablet Condition: Thursday Dose/Route: 2.5 mg Instruction: 0.5 x 5 mg tablets Condition: Thursday Dose/Route: 5 mg Instruction: 1 x 5 mg tablet Condition: Thursday Dose/Route: 5 mg Instruction: 1 x 5 mg tablet Condition: Dose/Route: 5 mg Instruction: 1 x 5 mg tablet Condition: Thursday Dose/Route: 2.5 mg Instruction: 0.5 x 5 mg tablets Condition: Thursday Dose/Route: 5 mg Instruction: 1 x 5 mg tablet Protocol Text: Adjustment Start Date: 05/29/22 INR Value: 2.5 INR Date: 05/29/22 Recheck Date: 06/09/22 Additional Instructions: RESUME USUAL DIET- EAT A MIX OF REDS AND GREENS, WILL KEEP LITTLE HIGHER DOSE OF WARFARIN X 10DAYS, S/P COLONOSCOPY multivitamin Tablet 1 tab PO DAILY cyanocobalamin (vitamin B-12) 1,000 mcg capsule 1,000 mcg PO DAILY lorazepam 0.5 mg tablet 0.5 mg PO TID PRN (Reason: anxiety) Qty: 90 3RF (DME) blood-glucose meter Misc See Rx Instructions .ROUTE .MEDSUPPLY Qty: 1 0RF Rx Instructions: TEST 2 TIMES DAILY esomeprazole magnesium [Nexium] 20 mg capsule,delayed release(DR/EC) 20 mg PO DAILY glipizide 5 mg tablet 5 mg PO DAILY nystatin 100,000 unit/gram cream 1 appl topical TID Qty: 30 1RF Referrals: Jerry Spain MD [Primary Care Provider] - 1 week
[2022-06-06] MEDS: Albuterol Sulfate 90 MCG 8 GM INHALER 2 PUFF INHALE (01:20)
== END 2022-06-06 01:43 | disposition left against medical advice (07) ==
PROVIDERS: Emergency Provider Emergency Medicine; PCP Internal Medicine
DX: U07.1 COVID-19 (principal); I10 Essential (primary) hypertension; E11.9 Type 2 diabetes mellitus without complications; E78.5 Hyperlipidemia, unspecified; Z79.02 Long term (current) use of antithrombotics/antiplatelets; Z79.899 Other long term (current) drug therapy
CPT/HCPCS: 71046; 87502; 87635; 99282; 99284

== ENCOUNTER 2022-06-12 13:35 | Outpatient (REF) | payer MEDICARE, SELFPAY ==
[2022-06-12 14:20] LABS: Prothrombin Time 70.1 SEC (10.0-13.1)
[2022-06-12 14:41] LABS: INTERNATIONAL NORM RATIO 5.7 (0.9-1.1)
== END 2022-06-12 13:36 | disposition home or self-care (01) ==
LOC: HO.LAB 13:35
PROVIDERS: PCP Internal Medicine; Visit Provider Internal Medicine
DX: I82.409 Acute embolism and thrombosis of unspecified deep veins of unspecified lower extremity (principal); Z51.81 Encounter for therapeutic drug level monitoring; Z79.01 Long term (current) use of anticoagulants
CPT/HCPCS: 36415; 85610; 99212

== ENCOUNTER → 2022-06-13 13:03 | Outpatient (BNVA) | payer MEDICARE, SELFPAY | PROVIDERS: PCP Internal Medicine; Visit Provider Internal Medicine | DX: I82.409 Acute embolism and thrombosis of unspecified deep veins of unspecified lower extremity (principal); Z79.01 Long term (current) use of anticoagulants; Z51.81 Encounter for therapeutic drug level monitoring | CPT/HCPCS: 85610; 99211 ==

== ENCOUNTER → 2022-06-20 10:55 | Outpatient (BNVA) | payer MEDICARE, SELFPAY | PROVIDERS: PCP Internal Medicine; Visit Provider Internal Medicine | DX: I82.409 Acute embolism and thrombosis of unspecified deep veins of unspecified lower extremity (principal); Z79.01 Long term (current) use of anticoagulants; Z51.81 Encounter for therapeutic drug level monitoring | CPT/HCPCS: 85610; 99211 ==

== ENCOUNTER → 2022-07-04 11:04 | Outpatient (BNVA) | payer MEDICARE, SELFPAY | PROVIDERS: PCP Internal Medicine; Visit Provider Internal Medicine | DX: I82.409 Acute embolism and thrombosis of unspecified deep veins of unspecified lower extremity (principal); Z79.01 Long term (current) use of anticoagulants; Z51.81 Encounter for therapeutic drug level monitoring | CPT/HCPCS: 85610; 99212 ==

== ENCOUNTER 2022-07-15 13:55 | Emergency (ER) | payer MEDICARE, SELFPAY ==
--- NOTE | 2022-07-15 15:25 | ED.GENADULT ---
HPI - General Adult General Chief complaint: Allergic Reaction <LOS Hartman - Last Filed: 07/15/22 15:27> Stated complaint: rash <LOS Hartman - Last Filed: 07/15/22 15:27> Time Seen by Provider: 07/15/22 16:19 <LOS Hartman - Last Filed: 07/15/22 15:27> Source: patient <Norma Kemp NP - Last Filed: 07/15/22 16:48> Mode of arrival: ambulatory <Norma Kemp NP - Last Filed: 07/15/22 16:48> Limitations: no limitations <Norma Kemp NP - Last Filed: 07/15/22 16:48> History of Present Illness HPI narrative: 76 yo female with history of hypertension, high cholesterol, DM, DVT on coumadin here with complaints of itching rash to chest after taking cough medication last night. No diff swallowing, diff breathing, vomiting, diarrhea, abdominal cramping. <Norma Kemp NP - Last Filed: 07/15/22 16:48> Related Data Home medications: Home Medications Medication Instructions Recorded Confirmed cyanocobalamin (vitamin B-12) 1,000 mcg PO DAILY 02/03/20 07/04/22 1,000 mcg capsule multivitamin 1 tab PO DAILY 02/03/20 07/04/22 esomeprazole magnesium 20 mg 20 mg PO DAILY 01/08/22 07/04/22 capsule,delayed release (Nexium) glipizide 5 mg tablet 5 mg PO DAILY 01/16/22 07/04/22 Previous Rx's Medication Instructions Recorded lancing device #1 ea 02/10/20 ammonium lactate 12 % topical cream 1 applic topical BID #140 grams 03/08/20 lancets (Accu-Chek Fastclix Lancet #100 ea 02/11/21 Drum) blood-glucose meter #1 ea 09/27/21 amlodipine 5 mg tablet 5 mg PO DAILY #90 tabs 10/11/21 atorvastatin 40 mg tablet 40 mg PO DAILY #90 tabs 10/11/21 furosemide 20 mg tablet 20 mg PO DAILY #90 tabs 10/11/21 lisinopril 40 mg tablet 40 mg PO DAILY #90 tabs 10/11/21 warfarin 5 mg tablet 5 mg PO DAILY #90 tabs 10/11/21 lancing device (Adjustable Lancing #1 ea 10/15/21 Device) blood-glucose meter (Accu-Chek #1 ea 11/25/21 Guide Glucose Meter) blood sugar diagnostic (Blood #50 ea 11/26/21 Glucose Test strips) nystatin 100,000 unit/gram topical 1 appl topical TID #30 grams 01/16/22 cream lorazepam 0.5 mg tablet 0.5 mg PO TID PRN anxiety #90 tabs 04/29/22 warfarin 1 mg tablet 1 mg PO DAILY #90 tabs 06/05/22 benzonatate 100 mg capsule 100 mg PO TID PRN cough #60 caps 06/20/22 phenytoin sodium extended 100 mg 300 mg PO BID #360 caps 06/25/22 capsule <LOS Hartman - Last Filed: 07/15/22 15:27> Allergies/adverse reactions: Allergies Allergy/AdvReac Type Severity Reaction Status Date / Time shrimp [SHRIMP] Allergy Mild HIVES Verified 07/15/22 15:25 No Known Drug Allergies Allergy Unknown Unknown Verified 07/04/22 11:12 <LOS Hartman - Last Filed: 07/15/22 15:27> Review of Systems Review of Systems: Yes all other systems are reviewed and are negative <Norma Kemp NP - Last Filed: 07/15/22 16:48> Constitutional: Constitutional: Reports no additional constitutional complaints, Denies body ache(s), Denies chills, Denies fever(s), Denies headache(s) and Denies weakness <Norma Kemp NP - Last Filed: 07/15/22 16:48> Eyes: Eyes: Reports no additional eye complaints and Denies change in vision <Norma Kemp NP - Last Filed: 07/15/22 16:48> ENT: Reports system reviewed and no additional complaints, except as documented, Denies dizziness, Denies headache(s), Denies nasal congestion, Denies nasal discharge and Denies neck pain <Norma Kemp NP - Last Filed: 07/15/22 16:48> Cardiovascular: Cardiovascular: Reports no additional cardiovascular complaints, Denies chest pain, Denies leg edema and Denies dyspnea <Norma Kemp NP - Last Filed: 07/15/22 16:48> Respiratory: Respiratory: Reports no additional respiratory complaints, Reports cough and Denies dyspnea <Norma Kemp NP - Last Filed: 07/15/22 16:48> Gastrointestinal: Gastrointestinal: Reports no additional gastrointestinal complaints, Denies abdominal pain, Denies diarrhea, Denies nausea and Denies vomiting <Norma Kemp NP - Last Filed: 07/15/22 16:48> Genitourinary: Genitourinary: Reports no additional female genitourinary complaints and Denies urinary incontinence <Norma Kemp NP - Last Filed: 07/15/22 16:48> Musculoskeletal: Musculoskeletal: Reports no additional musculoskeletal complaints, Denies back pain, Denies arthralgias, Denies joint swelling, Denies neck pain, Denies numbness and Denies tingling <Norma Kemp NP - Last Filed: 07/15/22 16:48> Integumentary/Breasts: Skin/Breast: Reports system reviewed and no additional complaints, except as docu and Reports rash <Norma Kemp NP - Last Filed: 07/15/22 16:48> Neurologic: Reports system reviewed and no additional complaints, except as documented, Denies dizziness, Denies headache(s), Denies numbness, Denies tingling and Denies weakness <Norma Kemp NP - Last Filed: 07/15/22 16:48> [facility] Past Medical History Attestation statement: The following information was validated with the patient. <Norma Kemp NP - Last Filed: 07/15/22 16:48> Source: old records reviewed and nursing notes reviewed <Norma Kemp NP - Last Filed: 07/15/22 16:48> Medical History: Medical History Diabetes mellitus with coincident hypertension DVT (deep venous thrombosis) Hyperlipidemia Hypertension <LOS Hartman - Last Filed: 07/15/22 15:27> Surgical History: Surgical History History of appendectomy History of cholecystectomy History of lumpectomy of right breast <LOS Hartman - Last Filed: 07/15/22 15:27> Family History Family History: Family History Father Asthma Mother Diabetes Hypertension Colon cancer Other Substance use disorder <LOS Hartman - Last Filed: 07/15/22 15:27> Social History Social History: Social History Housing: House Alcohol intake: never Patient Tobacco Use Status: Never used Tobacco e-Cigarette/Vaping Use: Never Used Second Hand Smoke Exposure: No Advance Directives: No Advance Directives Information Provided: No Advance Directives Date on File: 02/08/20 service: No Current occupational status: employed Cognitive needs: No Hearing needs: No Vision needs: No <LSO Hartman - Last Filed: 07/15/22 15:27> Physical Exam ED Vital Signs: Vital Signs - 24 hr 07/15/22 15:26 Temperature 98 F Pulse Rate 72 Respiratory Rate 18 Blood Pressure 185/74 H Pulse Oximetry 98 Oxygen Delivery Method Room Air BMI result Body Mass Index 38.7 <LOS Hartman - Last Filed: 07/15/22 15:27> Vital Signs - 24 hr 07/15/22 15:26 Temperature 98 F Pulse Rate 72 Respiratory Rate 18 Blood Pressure 185/74 H Pulse Oximetry 98 Oxygen Delivery Method Room Air BMI result Body Mass Index 38.7 <Norma Kemp NP - Last Filed: 07/15/22 16:48> Const General: cooperative, healthy appearing, comfortable and no acute distress <Norma Kemp NP - Last Filed: 07/15/22 16:48> Orientation/consciousness: patient oriented x3 <Norma Kemp NP - Last Filed: 07/15/22 16:48> Limitations: no limitations <Norma Kemp NP - Last Filed: 07/15/22 16:48> HENMN Head: Yes normal to inspection <Norma Kemp COMPLIANCE AUDITOR - Last Filed: 07/15/22 16:48> Ears: hearing grossly normal bilaterally <Norma Kemp COMPLIANCE AUDITOR - Last Filed: 07/15/22 16:48> Face and sinus: Yes normal facial exam <Norma Kemp, COMPLIANCE AUDITOR - Last Filed: 07/15/22 16:48> Mouth: Normal oral and palatal mucosa present, lip normal and tongue normal <Norma Kemp, COMPLIANCE AUDITOR - Last Filed: 07/15/22 16:48> Throat: Yes posterior oropharynx normal <Norma Kemp, COMPLIANCE AUDITOR - Last Filed: 07/15/22 16:48> Eyes General: appearance normal, both eyes and all related structures <Norma Kemp, COMPLIANCE AUDITOR - Last Filed: 07/15/22 16:48> Pupils: Equal, round and reactive pupils present <Norma Kemp COMPLIANCE AUDITOR - Last Filed: 07/15/22 16:48> Neck Neck: Yes normal visual inspection and Yes full ROM <Norma Kemp COMPLIANCE AUDITOR - Last Filed: 07/15/22 16:48> Chest Chest palpation & inspection: normal inspection of the chest <Norma Kemp COMPLIANCE AUDITOR - Last Filed: 07/15/22 16:48> Resp Effort & Inspection: normal respiratory effort <Norma Kemp COMPLIANCE AUDITOR - Last Filed: 07/15/22 16:48> Auscultation: clear to auscultation bilaterally <Norma Kemp COMPLIANCE AUDITOR - Last Filed: 07/15/22 16:48> Cardio Rate: regular rate <Norma Kemp COMPLIANCE AUDITOR - Last Filed: 07/15/22 16:48> Rhythm: regular rhythm <Norma Kemp COMPLIANCE AUDITOR - Last Filed: 07/15/22 16:48> Peripheral pulses: Peripheral pulses 2+ throughout <Norma Kemp COMPLIANCE AUDITOR - Last Filed: 07/15/22 16:48> Skin Other: urticarial rash noted over chest and anterior neck <Norma Kemp COMPLIANCE AUDITOR - Last Filed: 07/15/22 16:48> Neuro General: patient oriented x3 and moves all extremities <Norma Kemp NP - Last Filed: 07/15/22 16:48> Cranial nerves: Yes Equal, round and reactive pupils present <Norma Kemp NP - Last Filed: 07/15/22 16:48> Gait exam (Neuro): Normal gait present <Norma Kemp NP - Last Filed: 07/15/22 16:48> Extrem General: Yes normal to inspection <Norma Kemp NP - Last Filed: 07/15/22 16:48> Course Course Course Narrative: This is an RME: Additional HPI, ROS, PE not included below will be deferred to primary provider. 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 Reports this itchy, warm, she tells me she is concerned because she is on anticoagulants. Would like to be evaluated. Denies chest pain, shortness of breath, nausea, vomiting. Took benadryl last night. Physical exam with erythema to the anterior chest wall Plan- Benadryl re-evaluation <LOS Hartman - Last Filed: 07/15/22 15:27> Medications Administered Discontinued Medications Generic Name Dose Route Start Last Admin Trade Name Freq PRN Reason Stop Dose Admin Diphenhydramine HCl 50 mg 07/15/22 15:26 07/15/22 16:10 Diphenhydramine Hcl 25 Mg Capsule PO 07/15/22 15:27 50 mg ONCE ONE Administration <LOS Hartman - Last Filed: 07/15/22 15:27> Medications Administered Discontinued Medications Generic Name Dose Route Start Last Admin Trade Name Freq PRN Reason Stop Dose Admin Diphenhydramine HCl 50 mg 07/15/22 15:26 07/15/22 16:10 Diphenhydramine Hcl 25 Mg Capsule PO 07/15/22 15:27 50 mg ONCE ONE Administration <Norma Kemp NP - Last Filed: 07/15/22 16:48> Medical Decision Making Medical Decision Making MDM Narrative: 76 yo female here with urticarial rash to chest and anterior neck after taking cough medication last evening. No airway involvement or angioedema. LS CTA. Mild rash noted. Given benadryl in triage. Recommend home with benadryl prn, claritin or zrytec, topical steroids. <Norma Kemp NP - Last Filed: 07/15/22 16:48> Differential Diagnosis Differential Diagnoses: The differential diagnosis associated with the presentation includes <Norma Kemp NP - Last Filed: 07/15/22 16:48> allergic reaction <Norma Kemp NP - Last Filed: 07/15/22 16:48> Discharge Plan Discharge Clinical Impression: Allergic reaction <LOS Hartman Last Filed: 07/15/22 15:27> Patient Disposition: Home, Self-Care <LOS Hartman - Last Filed: 07/15/22 15:27> Instructions: General Allergic Reaction (ED) <LOS Hartman - Last Filed: 07/15/22 15:27> Additional Instructions: Take Benadryl every 6 hours as needed for itching Buy Claritin or Zyrtec and take this once daily for the next few days You may also buy a [id number] itch cream like cortisone to apply to the rash Try to avoid itching Return for any difficulty breathing, difficulty swallowing <LOS Hartman Last Filed: 07/15/22 15:27> Prescriptions: No Action (DME) lancing device Misc See Rx Instructions .ROUTE .MEDSUPPLY Qty: 1 8RF Rx Instructions: ACCU-CHECK DRALINE DEVICE ammonium lactate 12 % cream 1 applic topical BID Qty: 140 6RF (DME) lancets [Accu-Chek Fastclix Lancet Drum] Misc See Rx Instructions .ROUTE .MEDSUPPLY Qty: 100 8RF Rx Instructions: Check blood sugars Twice a day amlodipine 5 mg tablet 5 mg PO DAILY Qty: 90 8RF atorvastatin 40 mg tablet 40 mg PO DAILY Qty: 90 8RF furosemide 20 mg tablet 20 mg PO DAILY Qty: 90 8RF lisinopril 40 mg tablet 40 mg PO DAILY Qty: 90 8RF warfarin 5 mg tablet 5 mg PO DAILY Qty: 90 3RF Hold Instructions: Resume on 05/22/22. resume warfarin on 05/22/22 Protocol: Dose Management Condition: Thursday (Week One) Dose/Route: 5 mg Instruction: 1 x 5 mg tablet Condition: Thursday Dose/Route: 2.5 mg Instruction: 0.5 x 5 mg tablets Condition: Thursday Dose/Route: 5 mg Instruction: 1 x 5 mg tablet Condition: Thursday Dose/Route: 2.5 mg Instruction: 0.5 x 5 mg tablets Condition: Dose/Route: 5 mg Instruction: 1 x 5 mg tablet Condition: Thursday Dose/Route: 2.5 mg Instruction: 0.5 x 5 mg tablets Condition: Thursday Dose/Route: 5 mg Instruction: 1 x 5 mg tablet Condition: Thursday ( Two) Dose/Route: 2.5 mg Instruction: 0.5 x 5 mg tablets Condition: Thursday Dose/Route: 5 mg Instruction: 1 x 5 mg tablet Condition: Thursday Dose/Route: 2.5 mg Instruction: 0.5 x 5 mg tablets Condition: Thursday Dose/Route: 5 mg Instruction: 1 x 5 mg tablet Condition: Dose/Route: 2.5 mg Instruction: 0.5 x 5 mg tablets Condition: Thursday Dose/Route: 5 mg Instruction: 1 x 5 mg tablet Condition: Thursday Dose/Route: 2.5 mg Instruction: 0.5 x 5 mg tablets Protocol Text: Adjustment Start Date: Thursday07/04/22 INR Value: 3.5 INR Date: 07/04/22 Recheck Date: 07/18/22 Additional Instructions: eat greens today and weekly (DME) lancing device [Adjustable Lancing Device] Misc See Rx Instructions .Route Qty: 1 0RF Rx Instructions: As directed (DME) blood-glucose meter [Accu-Chek Guide Glucose Meter] Misc See Rx Instructions .Route Qty: 1 0RF Rx Instructions: As directed (DME) Blood Glucose Test Strip See Rx Instructions .Route Qty: 50 8RF Rx Instructions: test blood sugar twice a day warfarin 1 mg tablet 1 mg PO DAILY Qty: 90 0RF Protocol: Dose Management Condition: Thursday (Week One) Dose/Route: 5 mg Instruction: 1 x 5 mg tablet Condition: Thursday Dose/Route: 2.5 mg Instruction: 0.5 x 5 mg tablets Condition: Thursday Dose/Route: 5 mg Instruction: 1 x 5 mg tablet Condition: Thursday Dose/Route: 2.5 mg Instruction: 0.5 x 5 mg tablets Condition: Dose/Route: 5 mg Instruction: 1 x 5 mg tablet Condition: Thursday Dose/Route: 2.5 mg Instruction: 0.5 x 5 mg tablets Condition: Thursday Dose/Route: 5 mg Instruction: 1 x 5 mg tablet Condition: Thursday (Week Two) Dose/Route: 2.5 mg Instruction: 0.5 x 5 mg tablets Condition: Thursday Dose/Route: 5 mg Instruction: 1 x 5 mg tablet Condition: Thursday Dose/Route: 2.5 mg Instruction: 0.5 x 5 mg tablets Condition: Thursday Dose/Route: 5 mg Instruction: 1 x 5 mg tablet Condition: Dose/Route: 2.5 mg Instruction: 0.5 x 5 mg tablets Condition: Thursday Dose/Route: 5 mg Instruction: 1 x 5 mg tablet Condition: Thursday Dose/Route: 2.5 mg Instruction: 0.5 x 5 mg tablets Protocol Text: Adjustment Start Date: Thursday07/04/22 INR Value: 3.5 INR Date: 07/04/22 Recheck Date: 07/18/22 Additional Instructions: eat greens today and weekly phenytoin sodium extended 100 mg capsule 300 mg PO BID Qty: 360 8RF multivitamin Tablet 1 tab PO DAILY cyanocobalamin (vitamin B-12) 1,000 mcg capsule 1,000 mcg PO DAILY lorazepam 0.5 mg tablet 0.5 mg PO TID PRN (Reason: anxiety) Qty: 90 3RF benzonatate 100 mg capsule 100 mg PO TID PRN (Reason: cough) Qty: 60 0RF (DME) blood-glucose meter Misc See Rx Instructions .ROUTE .MEDSUPPLY Qty: 1 0RF Rx Instructions: TEST 2 TIMES DAILY esomeprazole magnesium [Nexium] 20 mg capsule,delayed release(DR/EC) 20 mg PO DAILY glipizide 5 mg tablet 5 mg PO DAILY nystatin 100,000 unit/gram cream 1 appl topical TID Qty: 30 1RF <LOS Hartman - Last Filed: 07/15/22 15:27> Referrals: Physician,Unknown J [Primary Care Provider] - <LOS Hartman - Last Filed: 07/15/22 15:27> Interventions: ED Discharge Assessment Last Done: 07/15/22 16:40 <LOS Hartman - Last Filed: 07/15/22 15:27>
[2022-07-15 15:26] VITALS: BP 185/74; PULSE 72; RESP 18; TEMP 36.6; O2SAT 98; BMI 38.7
[2022-07-15] MEDS: diphenhydrAMINE HCL 25 MG CAPSULE 50 MG PO (16:10)
== END 2022-07-15 16:51 | disposition home or self-care (01) ==
LOC: HO.ED 16:42
PROVIDERS: Emergency Provider Emergency Medicine
DX: L50.0 Allergic urticaria (principal); Z79.899 Other long term (current) drug therapy
CPT/HCPCS: 99282; 99283

== ENCOUNTER → 2022-07-17 10:40 | Outpatient (BNVA) | payer MEDICARE, SELFPAY | PROVIDERS: PCP Internal Medicine; Visit Provider Internal Medicine | DX: I82.409 Acute embolism and thrombosis of unspecified deep veins of unspecified lower extremity (principal); Z79.01 Long term (current) use of anticoagulants; Z51.81 Encounter for therapeutic drug level monitoring | CPT/HCPCS: 85610; 99211 ==

== ENCOUNTER → 2022-07-24 13:12 | Outpatient (BNVA) | payer MEDICARE, SELFPAY | PROVIDERS: PCP Internal Medicine; Visit Provider Internal Medicine | DX: I82.409 Acute embolism and thrombosis of unspecified deep veins of unspecified lower extremity (principal); Z79.01 Long term (current) use of anticoagulants; Z51.81 Encounter for therapeutic drug level monitoring | CPT/HCPCS: 85610; 99211 ==

== ENCOUNTER 2022-07-26 09:14 | Emergency (ER) | payer MEDICARE, SELFPAY ==
[2022-07-26 09:17] VITALS: BP 165/80; PULSE 86; RESP 16; TEMP 36; O2SAT 95; BMI 36.6
[2022-07-26 11:08] LABS: MANUAL DIFF FLAG NO
[2022-07-26 11:12] LABS: Basophils Percent Auto 0.3 % (0-2); Eosinophils Absolute Auto 0.1 X10*3/uL (0.0-0.4); Eosinophils Percent Auto 1.3 % (0-4); Hemoglobin 15.2 g/dl (12.0-16.0); Imm Gran Abs Auto 0.03 X10*3/uL (0.00-0.03); Imm Gran Pct Auto 0.4 % (0.0-0.4); Lymphocytes Absolute Auto 0.9 X10*3/uL (1.2-4.9); Lymphocytes Percent Auto 12.1 % (20-40); Mean Corpuscular Hemoglobin 33.3 pg (27.0-33.0); Mean Corpuscular Volume 100.7 fL (80.0-98.0); Mean Platelet Volume 9.4 fL (9.4-12.3); Monocytes Absolute Auto 0.4 X10*3/uL (0.1-1.2); Monocytes Percent Auto 5.3 % (2-11); Neutrophils Absolute Auto 5.6 x10*3/uL (2.0-8.3); Neutrophils Percent Auto 80.6 % (45-73); Platelet Count 188 X10*3/uL (160-400); Red Blood Count 4.57 X10*6/uL (4.20-5.50); Red Cell Distribution Width 13.1 % (11.0-16.0)
[2022-07-26 11:23] LABS: INTERNATIONAL NORM RATIO 2.2 (0.9-1.1); Prothrombin Time 26.7 SEC (10.0-13.1)
[2022-07-26 11:30] LABS: Alanine Aminotransferase 15 U/L (0-31); Albumin Level 4.1 g/dL (3.5-5.0); Alkaline Phosphatase 78 U/L (39-117); Anion Gap 14 (12-20); Aspartate Amino Transferase 15 U/L (5-31); Bilirubin Direct < 0.2 mg/dL (0.0-0.5); Bilirubin Total 0.4 mg/dL (0.0-1.0); Blood Urea Nitrogen 18 mg/dL (9-16); Calcium 9.5 mg/dL (8.4-10.2); Carbon Dioxide 29 mmol/L (22-29); Chloride 104 mmol/L (96-108); Creatinine Clr Calc Pharmacy 62.1; Estimated Glomerular Filt Rate > 60; Glucose Random 125 mg/dL (60-115); Potassium 4.2 mmol/L (3.3-5.1); Sodium 143 mmol/L (135-145); Total Protein 6.9 g/dL (6.5-8.0)
[2022-07-26 11:41] VITALS: BP 137/65; PULSE 75; RESP 16; O2SAT 98
--- NOTE | 2022-07-26 12:13 | ED_ITS ---
HPI - Skin/Abscess/Foreign Bdy General Chief complaint: Skin/Abscess/Foreign Body Stated complaint: rash on neck and l leg Time Seen by Provider: 07/26/22 10:36 History of Present Illness HPI narrative: Patient complains of itchy rash on her chest which began a week ago, she came here and was prescribed Benadryl which she has been intermittently using but the rash continues, it is itchy not painful there is no fever the rash began several days before she was started on antibiotic by her primary care doctor, Michael, for a possible left leg cellulitis, but the rash preceded the prescription for Keflex and is not sure what is causing the rash, no new drool re, no new creams, nothi ng in contact with her skin that is new or different There is no shortness of breath no difficulty breathing or swallowing no swelling in the throat or mouth, no pain Related Data Home Medications Medication Instructions Recorded Confirmed cyanocobalamin (vitamin B-12) 1,000 mcg PO DAILY 02/03/20 07/31/22 1,000 mcg capsule multivitamin 1 tab PO DAILY 02/03/20 07/31/22 esomeprazole magnesium 20 mg 20 mg PO DAILY 01/08/22 07/31/22 capsule,delayed release (Nexium) glipizide 5 mg tablet 5 mg PO DAILY 01/16/22 07/31/22 Previous Rx's Medication Instructions Recorded lancing device #1 ea 02/10/20 ammonium lactate 12 % topical cream 1 applic topical BID #140 grams 03/08/20 lancets (Accu-Chek Fastclix Lancet #100 ea 02/11/21 Drum) blood-glucose meter #1 ea 09/27/21 amlodipine 5 mg tablet 5 mg PO DAILY #90 tabs 10/11/21 atorvastatin 40 mg tablet 40 mg PO DAILY #90 tabs 10/11/21 furosemide 20 mg tablet 20 mg PO DAILY #90 tabs 10/11/21 lisinopril 40 mg tablet 40 mg PO DAILY #90 tabs 10/11/21 warfarin 5 mg tablet 5 mg PO DAILY #90 tabs 10/11/21 lancing device (Adjustable Lancing #1 ea 10/15/21 Device) blood-glucose meter (Accu-Chek #1 ea 11/25/21 Guide Glucose Meter) blood sugar diagnostic (Blood #50 ea 11/26/21 Glucose Test strips) lorazepam 0.5 mg tablet 0.5 mg PO TID PRN anxiety #90 tabs 04/29/22 warfarin 1 mg tablet 1 mg PO DAILY #90 tabs 06/05/22 phenytoin sodium extended 100 mg 300 mg PO BID #360 caps 06/25/22 capsule cephalexin 500 mg capsule 500 mg PO QID 10 days #40 caps 07/23/22 cetirizine 10 mg tablet 10 mg PO DAILY PRN rash #14 tabs 07/26/22 methylprednisolone 4 mg tablets in See Rx Instructions PO PER PKG DIR 07/30/22 a dose pack (Medrol (Genaro)) #21 ea triamcinolone acetonide 0.5 % 1 appl topical TID #15 grams 07/30/22 topical cream Allergies Allergy/AdvReac Type Severity Reaction Status Date / Time shrimp [SHRIMP] Allergy Mild HIVES Verified 07/31/22 13:02 No Known Drug Allergies Allergy Unknown Unknown Verified 07/31/22 13:02 [facility] Past Medical History Source: nursing notes reviewed Medical History Diabetes mellitus with coincident hypertension DVT (deep venous thrombosis) Hyperlipidemia Hypertension Surgical History History of appendectomy History of cholecystectomy History of lumpectomy of right breast Family History Family History Father Asthma Mother Diabetes Hypertension Colon cancer Other Substance use disorder Social History Social History Housing: House Alcohol intake: never Patient Tobacco Use Status: Never used Tobacco e-Cigarette/Vaping Use: Never Used Second Hand Smoke Exposure: No Advance Directives Date on File: 02/08/20 service: No Current occupational status: employed Cognitive needs: No Hearing needs: No Vision needs: No Physical Exam Vital Signs: Vital Signs: Last Vital Signs Temp 96.8 F 07/26/22 09:17 Pulse 75 07/26/22 11:41 Resp 16 07/26/22 11:41 BP 137/65 07/26/22 11:41 Pulse Ox 98 07/26/22 11:41 O2 Del Method Room Air 07/26/22 11:41 BMI result Body Mass Index 36.6 General appearance comfortable relax no acute distress The eyes no redness or discharge The pharynx is clear without redness swelling or exudate, there is no swelling of lips tongue or uvula there is no drooling voice is normal, no impairment of breathing or swallowing no trismus Neck is supple no stridor Chest is clear to auscultation bilateral full symmetric equal breath sounds Chest wall there is a large erythematous nontender patch on anterior upper chest wall, no excoriations, skin is intact no vesicles Heart no murmur Abdomen soft nontender Extremities full range of motion x4 Both lower extremities pretibial areas have some redness some tenderness, there is no discharge no fluctuance, no lymphangitis Skin no other rashes except the above-mentioned chest wall rash Course Course Course Narrative: Patient with large erythematous nontender patch on the chest wall, with no other rash on body, rash is itchy but not painful, she was seen before and prescribed Benadr yl but has not been taking it frequently, rash is not getting better or worse She is on Coumadin for a DVT in her leg, her doctor did recently start her on Keflex for possible cellulitis in her left leg, but this was prescribed after the rash began Labs were checked with no acute abnormalities, INR was 2.2 Well-appearing patient with no evidence of systemic illness from her left leg cellulitis is treated for a chest rash with prednisone and Zyrtec The areas of redness in bilateral pretibial areas worse on the left I described by patient as stable and not worsening and she will continue her Keflex and will follow with her doctor Medications Administered Discontinued Medications Generic Name Dose Route Start Last Admin Trade Name Odalys PRN Reason Stop Dose Admin Loratadine 10 mg 07/26/22 12:24 07/26/22 12:47 Loratadine 10 Mg Tablet PO 07/26/22 12:25 10 mg ONCE ONE Administration Prednisone 40 mg 07/26/22 12:24 07/26/22 12:46 Prednisone 20 Mg Tablet PO 07/26/22 12:25 40 mg ONCE ONE Administration Medical Decision Making Lab Data MDM Lab Attestation statement: I reviewed the patient's lab results. 07/26/22 11:00 07/26/22 11:00 Labs: Lab Results 07/26/22 07/26/22 07/26/22 Range/Units 11:00 11:00 11:00 WBC 7.0 (4.8-10.8) X10*3/uL RBC 4.57 D (4.20-5.50) X10*6/uL Hgb 15.2 D (12.0-16.0) g/dl Hct 46.0 D (37.0-47.0) % MCV 100.7 H (80.0-98.0) fL MCH 33.3 H (27.0-33.0) pg MCHC 33.0 (31.0-35.0) g/dl RDW 13.1 (11.0-16.0) % Plt Count 188 (160-400) X10*3/uL MPV 9.4 (9.4-12.3) fL Immature Gran % (Auto) 0.4 (0.0-0.4) % Neut % (Auto) 80.6 H (45-73) % Lymph % (Auto) 12.1 L (20-40) % [place] % (Auto) 5.3 (2-11) % Eos % (Auto) 1.3 (0-4) % Baso % (Auto) 0.3 (0-2) % Lymph # (Auto) 0.9 L (1.2-4.9) X10*3/uL [place] # (Auto) 0.4 (0.1-1.2) X10*3/uL Eos # (Auto) 0.1 (0.0-0.4) X10*3/uL Baso # (Auto) 0.0 (0.0-0.2) X10*3/uL Abs Immat Gran (auto) 0.03 (0.00-0.03) X10*3/uL Absolute Neuts (auto) 5.6 (2.0-8.3) x10*3/uL Absolute Nucleated RBC 0.000 (0.0-0.012) X10*3/uL Nucleated RBC % (auto) 0.0 (0.0-0.2) /100WBC PT 26.7 H (10.0-13.1) SEC INR 2.2 H D (0.9-1.1) Sodium 143 (135-145) mmol/L Potassium 4.2 (3.3-5.1) mmol/L Chloride 104 (96-108) mmol/L Carbon Dioxide 29 (22-29) mmol/L Anion Gap 14 (12-20) BUN 18 H (9-16) mg/dL Creatinine 0.82 (0.5-1.4) mg/dL Estim Creat Clear Calc 62.1 Estimated GFR > 60 Random Glucose 125 H (60-115) mg/dL Calcium 9.5 D (8.4-10.2) mg/dL Total Bilirubin 0.4 (0.0-1.0) mg/dL Direct Bilirubin < 0.2 (0.0-0.5) mg/dL AST 15 (5-31) U/L ALT 15 (0-31) U/L Alkaline Phosphatase 78 (39-117) U/L Total Protein 6.9 (6.5-8.0) g/dL Albumin 4.1 (3.5-5.0) g/dL Discharge Plan Discharge Clinical Impression: Rash Patient Disposition: Home, Self-Care Additional Instructions: We are treating the rash on your chest with Zyrtec antihistamine and prednisone for 2 more days, the Zyrtec you will take as needed until rash is gone If rash does not improve in 2-3 days contact primary doctor to recheck rash and for possible referral to a packaging machine supplies distributor Return any time any worse condition or any concerns Check with your Coumadin clinic to see if you need to be checked because of new medications Zyrtec and prednisone, some medications can change the INR and the clinic will tell you when you need to be checked Prescriptions: New cetirizine 10 mg tablet 10 mg PO DAILY PRN (Reason: rash) Qty: 14 0RF No Action (DME) lancing device Misc See Rx Instructions .ROUTE .MEDSUPPLY Qty: 1 8RF Rx Instructions: ACCU-CHECK DARLINE DEVICE ammonium lactate 12 % cream 1 applic topical BID Qty: 140 6RF (DME) lancets [Accu-Chek Fastclix Lancet Drum] Misc See Rx Instructions .ROUTE .MEDSUPPLY Qty: 100 8RF Rx Instructions: Check blood sugars Twice a day amlodipine 5 mg tablet 5 mg PO DAILY Qty: 90 8RF atorvastatin 40 mg tablet 40 mg PO DAILY Qty: 90 8RF furosemide 20 mg tablet 20 mg PO DAILY Qty: 90 8RF lisinopril 40 mg tablet 40 mg PO DAILY Qty: 90 8RF warfarin 5 mg tablet 5 mg PO DAILY Qty: 90 3RF Hold Instructions: Resume on 05/22/22. resume warfarin on 05/22/22 Protocol: Dose Management Condition: Thursday (Week One) Dose/Route: 2.5 mg Instruction: 0.5 x 5 mg tablets Condition: Thursday Dose/Route: 2.5 mg Instruction: 0.5 x 5 mg tablets Condition: Thursday Dose/Route: 2.5 mg Instruction: 0.5 x 5 mg tablets Condition: Thursday Dose/Route: 5 mg Instruction: 1 x 5 mg tablet Condition: Dose/Route: 5 mg Instruction: 1 x 5 mg tablet Condition: Thursday Dose/Route: 5 mg Instruction: 1 x 5 mg tablet Condition: Thursday Dose/Route: 2.5 mg Instruction: 0.5 x 5 mg tablets Condition: Thursday (Week Two) Dose/Route: 2.5 mg Instruction: 0.5 x 5 mg tablets Condition: Thursday Dose/Route: 5 mg Instruction: 1 x 5 mg tablet Condition: Thursday Dose/Route: 2.5 mg Instruction: 0.5 x 5 mg tablets Condition: Thursday Dose/Route: 5 mg Instruction: 1 x 5 mg tablet Condition: Dose/Route: 2.5 mg Instruction: 0.5 x 5 mg tablets Condition: Thursday Dose/Route: 5 mg Instruction: 1 x 5 mg tablet Condition: Thursday Dose/Route: 2.5 mg Instruction: 0.5 x 5 mg tablets Protocol Text: Adjustment Start Date: 07/31/22 INR Value: 1.7 INR Date: 07/31/22 Recheck Date: 08/04/22 Additional Instructions: AVOID GREENS TODAY AND TOMORROW, EAT REDS OR ORNAGES TODAY TO HELP RAISE THE INR (DME) lancing device [Adjustable Lancing Device] Misc See Rx Instructions .Route Qty: 1 0RF Rx Instructions: As directed (DME) blood-glucose meter [Accu-Chek Guide Glucose Meter] Misc See Rx Instructions .Route Qty: 1 0RF Rx Instructions: As directed (DME) Blood Glucose Test Strip See Rx Instructions .Route Qty: 50 8RF Rx Instructions: test blood sugar twice a day warfarin 1 mg tablet 1 mg PO DAILY Qty: 90 0RF Protocol: Dose Management Condition: Thursday (Week One) Dose/Route: 2.5 mg Instruction: 0.5 x 5 mg tablets Condition: Thursday Dose/Route: 2.5 mg Instruction: 0.5 x 5 mg tablets Condition: Thursday Dose/Route: 2.5 mg Instruction: 0.5 x 5 mg tablets Condition: Thursday Dose/Route: 5 mg Instruction: 1 x 5 mg tablet Condition: Dose/Route: 5 mg Instruction: 1 x 5 mg tablet Condition: Thursday Dose/Route: 5 mg Instruction: 1 x 5 mg tablet Condition: Thursday Dose/Route: 2.5 mg Instruction: 0.5 x 5 mg tablets Condition: Thursday (Week Two) Dose/Route: 2.5 mg Instruction: 0.5 x 5 mg tablets Condition: Thursday Dose/Route: 5 mg Instruction: 1 x 5 mg tablet Condition: Thursday Dose/Route: 2.5 mg Instruction: 0.5 x 5 mg tablets Condition: Thursday Dose/Route: 5 mg Instruction: 1 x 5 mg tablet Condition: Dose/Route: 2.5 mg Instruction: 0.5 x 5 mg tablets Condition: Thursday Dose/Route: 5 mg Instruction: 1 x 5 mg tablet Condition: Thursday Dose/Route: 2.5 mg Instruction: 0.5 x 5 mg tablets Protocol Text: Adjustment Start Date: 07/31/22 INR Value: 1.7 INR Date: 07/31/22 Recheck Date: 08/04/22 Additional Instructions: AVOID GREENS TODAY AND TOMORROW, EAT REDS OR ORNAGES TODAY TO HELP RAISE THE INR phenytoin sodium extended 100 mg capsule 300 mg PO BID Qty: 360 8RF cephalexin 500 mg capsule 500 mg PO QID 10 Days Qty: 40 0RF multivitamin Tablet 1 tab PO DAILY cyanocobalamin (vitamin B-12) 1,000 mcg capsule 1,000 mcg PO DAILY lorazepam 0.5 mg tablet 0.5 mg PO TID PRN (Reason: anxiety) Qty: 90 3RF triamcinolone acetonide 0.5 % cream 1 appl topical TID Qty: 15 3RF methylprednisolone [Medrol (Genaro)] 4 mg tablets,dose pack See Rx Instructions PO PER PKG DIR Qty: 21 0RF Rx Instructions: PO PER PKG DIR (DME) blood-glucose meter Misc See Rx Instructions .ROUTE .MEDSUPPLY Qty: 1 0RF Rx Instructions: TEST 2 TIMES DAILY esomeprazole magnesium [Nexium] 20 mg capsule,delayed release(DR/EC) 20 mg PO DAILY glipizide 5 mg tablet 5 mg PO DAILY Interventions: ED Discharge Assessment Last Done: 07/26/22 12:52 Discharge Date/Time: 07/26/22 12:53
[2022-07-26] MEDS: predniSONE 20 MG TABLET 40 MG PO (12:46)
[2022-07-26] MEDS: Loratadine 10 MG TABLET PO (12:47)
== END 2022-07-26 12:53 | disposition home or self-care (01) ==
PROVIDERS: Physician Assistant Medical; Emergency Provider Emergency Medicine; PCP Internal Medicine
DX: R21 Rash and other nonspecific skin eruption (principal); E11.9 Type 2 diabetes mellitus without complications; I10 Essential (primary) hypertension; E78.5 Hyperlipidemia, unspecified; Z86.718 Personal history of other venous thrombosis and embolism; Z79.01 Long term (current) use of anticoagulants
CPT/HCPCS: 36415; 80048; 80076; 85025; 85610; 99283; 99284

== ENCOUNTER → 2022-07-31 13:01 | Outpatient (BNVA) | payer MEDICARE, SELFPAY | PROVIDERS: PCP Internal Medicine; Visit Provider Internal Medicine | DX: I82.409 Acute embolism and thrombosis of unspecified deep veins of unspecified lower extremity (principal); Z79.01 Long term (current) use of anticoagulants; Z51.81 Encounter for therapeutic drug level monitoring | CPT/HCPCS: 85610; 99211 ==

== ENCOUNTER 2022-08-04 13:33 | Emergency (ER) | payer MEDICARE, SELFPAY ==
--- NOTE | ~2022-08-04 | CT_ITS ---
EXAMINATION: CT LUMBAR SPINE WITHOUT CONTRAST CLINICAL INFORMATION: Low back pain after fall. COMPARISON: CT abdomen and pelvis 12/13/2021. TECHNIQUE: [employer] Implementation Specialist images were obtained. CT imaging of the lumbar spine was performed without contrast. Data was reformatted into multiplanar images at the acquisition workstation. This CT examination was performed using dose optimization techniques as appropriate, variously including the following: *Automated exposure control *Adjustment of mA and/or kV according to patient size (this includes techniques or standardized protocols for targeted exams where dose is matched to indication/reason for exam; i.e. extremities or head) *Use of iterative reconstruction technique DLP; 800 mGy-cm FINDINGS: There is a grade 1 retrolisthesis of L2 on L3. Alignment is otherwise normal. Vertebral heights are preserved. No acute fracture. There is loss of intervertebral disc height with associated sclerotic degenerative endplate changes, hypertrophic disc osteophyte spurring, and intervertebral vacuum disc phenomenon at L5-S1. Grossly no canal compromise. There are varying degrees of neuroforaminal encroachment related to disc osteophyte spurring and facet degenerative change. For instance there is mild to moderate mass effect on both L5 foraminal nerve roots related to degenerative changes at L5-S1 and mild to moderate mass effect on the left L4 foraminal nerve root related to degenerative changes at L4-L5. Limited visualization of the retroperitoneal anatomy reveals no abnormal finding. Psoas and paraspinal muscle groups are symmetric. CT/CT lumbar spine wo IV con IMPRESSION: There is multilevel degenerative spondylosis of the lumbar spine with grade 1 retrolisthesis of L2 on L3. Grossly no evidence of canal compromise. There are varying degrees of neuroforaminal encroachment related to disc osteophyte spurring and facet degenerative change as described above. No evidence of acute fracture.
--- NOTE | ~2022-08-04 | XR_ITS ---
EXAMINATION: Bilateral knee x-ray CLINICAL INFORMATION: Bilateral knee pain. History of fall. COMPARISON: Previous left knee x-ray December 2019 TECHNIQUE: 4 views of each knee FINDINGS: Left: Bone alignment is normal. No fracture or dislocation. Normal femoral tibial joints. Small osteophytes at the patellofemoral joint. Small osteophyte at the quadriceps tendon insertion to the patella. No joint effusion. Right: Bone alignment is normal. No fracture or dislocation. Normal femoral tibial joints. Small osteophytes at the patellofemoral joint. Osteophytes at the quadriceps tendon insertion to the patella and patellar tendon origin. No joint effusion. XR/XR knee RT 3V IMPRESSION: Degenerative changes. No fracture or dislocation.
--- NOTE | ~2022-08-04 | XR_ITS ---
EXAMINATION: Bilateral knee x-ray CLINICAL INFORMATION: Bilateral knee pain. History of fall. COMPARISON: Previous left knee x-ray December 2019 TECHNIQUE: 4 views of each knee FINDINGS: Left: Bone alignment is normal. No fracture or dislocation. Normal femoral tibial joints. Small osteophytes at the patellofemoral joint. Small osteophyte at the quadriceps tendon insertion to the patella. No joint effusion. Right: Bone alignment is normal. No fracture or dislocation. Normal femoral tibial joints. Small osteophytes at the patellofemoral joint. Osteophytes at the quadriceps tendon insertion to the patella and patellar tendon origin. No joint effusion. XR/XR knee LT 3V IMPRESSION: Degenerative changes. No fracture or dislocation.
[2022-08-04 13:40] VITALS: BP 155/67; BP 180/89; PULSE 80; PULSE 85; RESP 20; TEMP 36.6; O2SAT 98; BMI 40.4
--- NOTE | 2022-08-04 14:12 | ED_ITS ---
HPI - Fall General Chief Complaint: Fall Stated Complaint: FALL Time Seen by Provider: 08/04/22 13:49 Source: patient Mode of arrival: EMS Limitations: no limitations History of Present Illness HPI Narrative: 76-year-old female with history of factor 5 Leiden on Coumadin presents with mechanical fall. Patient was looking for her purse when she just lost her balance and fell. She denied any chest pain, palpitations, lightheadedness, loss consciousness. She denies any head injury, headache, nausea, vomiting or vision changes. She denies any focal neurologic deficits. Her predominant complaint is severe low back pain. The pain is better at rest. Is worse with movement and palpation. The pain does not radiate. There is no numbness or tingling. There is no weakness. There was no loss of bowel or bladder control. There are no saddle paresthesias. Additionally, patient complains of bilateral knee pain. The pain is mild in her knees. She did land on her knees. Is worse with movement. It is better with rest. Related Data Home Medications Medication Instructions Recorded Confirmed cyanocobalamin (vitamin B-12) 1,000 mcg PO DAILY 02/03/20 07/31/22 1,000 mcg capsule multivitamin 1 tab PO DAILY 02/03/20 07/31/22 esomeprazole magnesium 20 mg 20 mg PO DAILY 01/08/22 07/31/22 capsule,delayed release (Nexium) glipizide 5 mg tablet 5 mg PO DAILY 01/16/22 07/31/22 Previous Rx's Medication Instructions Recorded lancing device #1 ea 02/10/20 ammonium lactate 12 % topical cream 1 applic topical BID #140 grams 03/08/20 lancets (Accu-Chek Fastclix Lancet #100 ea 02/11/21 Drum) blood-glucose meter #1 ea 09/27/21 amlodipine 5 mg tablet 5 mg PO DAILY #90 tabs 10/11/21 atorvastatin 40 mg tablet 40 mg PO DAILY #90 tabs 10/11/21 furosemide 20 mg tablet 20 mg PO DAILY #90 tabs 10/11/21 lisinopril 40 mg tablet 40 mg PO DAILY #90 tabs 10/11/21 warfarin 5 mg tablet 5 mg PO DAILY #90 tabs 10/11/21 lancing device (Adjustable Lancing #1 ea 10/15/21 Device) blood-glucose meter (Accu-Chek #1 ea 11/25/21 Guide Glucose Meter) blood sugar diagnostic (Blood #50 ea 11/26/21 Glucose Test strips) lorazepam 0.5 mg tablet 0.5 mg PO TID PRN anxiety #90 tabs 04/29/22 warfarin 1 mg tablet 1 mg PO DAILY #90 tabs 06/05/22 phenytoin sodium extended 100 mg 300 mg PO BID #360 caps 06/25/22 capsule cephalexin 500 mg capsule 500 mg PO QID 10 days #40 caps 07/23/22 cetirizine 10 mg tablet 10 mg PO DAILY PRN rash #14 tabs 07/26/22 methylprednisolone 4 mg tablets in See Rx Instructions PO PER PKG DIR 07/30/22 a dose pack (Medrol (Genaro)) #21 ea triamcinolone acetonide 0.5 % 1 appl topical TID #15 grams 07/30/22 topical cream docusate sodium 100 mg capsule 100 mg PO BID #20 caps 08/04/22 oxycodone 5 mg tablet 5 mg PO Q8H PRN pain #14 tabs 08/04/22 Allergies Allergy/AdvReac Type Severity Reaction Status Date / Time shrimp [SHRIMP] Allergy Mild HIVES Verified 07/31/22 13:02 No Known Drug Allergies Allergy Unknown Unknown Verified 07/31/22 13:02 [facility] Past Medical History Medical History Diabetes mellitus with coincident hypertension DVT (deep venous thrombosis) Hyperlipidemia Hypertension Surgical History History of appendectomy History of cholecystectomy History of lumpectomy of right breast Family History Family History Father Asthma Mother Diabetes Hypertension Colon cancer Other Substance use disorder Social History Social History Housing: House Alcohol intake: never Patient Tobacco Use Status: Never used Tobacco Smoked in Last 30 Days: No e-Cigarette/Vaping Use: Never Used Second Hand Smoke Exposure: No Use of substances other than those prescribed or required for medical reasons: No Advance Directives: No Advance Directives Information Provided: No Advance Directives Date on File: 10/14/20 service: No Current occupational status: employed Cognitive needs: No Hearing needs: No Vision needs: No Physical Exam Vital Signs: Vital Signs: Last Vital Signs Temp 98.1 F 08/04/22 16:12 Pulse 75 08/04/22 16:12 Resp 15 08/04/22 16:12 BP 146/64 H 08/04/22 16:12 Pulse Ox 98 08/04/22 16:12 O2 Del Method Room Air 08/04/22 16:12 BMI result Body Mass Index 40.4 GEN: Well developed, no acute distress, alert, oriented HEENT: Normocephalic, atraumatic, normal external ears, nose appears normal, no oropharyngeal edema or exudates Eyes: Normal to appearance Neck: Supple, no lymphadenopathy Respiratory: Talks in complete sentences, no respiratory distress, clear to auscultation bilaterally Cardiovascular: Regular rate and rhythm, no murmurs rubs or gallops Abdomen: Soft, nontender, nondistended, no guarding, no rebound Back: No CVA tenderness lumbar paraspinous tenderness, no midline tenderness or step-off Extremities: No clubbing cyanosis , chronic edema specifically of the left lower leg with chronic skin changes which she reports is old Neurologic: No focal neurologic deficits, cranial nerves 2-12 intact, strength is 5/5 bilaterally, Skin: Old rash on chest Course Course Course Narrative: 76-year-old female with history of factor 5 Leiden presents with a mechanical fall. Patient denies hitting her head or loss of consciousness. She is on blood thinning medications. Predominant complaint is low back pain and bilateral knee pain. Will obtain x-rays of the knees as well as CT scan of the lumbar spine. Will provide patient with Percocet. Patient was post having her INR checked today. Will obtain an INR in the emergency department. Reevaluation(s) Reevaluation #1: patient is able to ambulate with pain. Discussed results. will dc follow up with pmd Time: 16:59 Medications Administered Discontinued Medications Generic Name Dose Route Start Last Admin Trade Name Freq PRN Reason Stop Dose Admin Oxycodone HCl 5 mg 08/04/22 14:14 08/04/22 14:28 Oxycodone Hcl Immed Release 5 Mg Tablet PO 08/04/22 14:15 5 mg ONCE ONE Administration Medical Decision Making Medical Decision Making [facility] Narrative: 76-year-old female presents with an accidental fall. Patient lost balance. She did not lose consciousness or have prodrome such as lightheadedness, palpitations, shortness of breath. Doubt PE, cardiac dysrhythmia, acute ischemia, acute anemia or significant electrolyte abnormality. This appears to be mechanical in nature. As result, will focus on her complaints which include low back pain and bilateral knee pain. Will provide patient with analgesia. Differential Diagnosis Differential Diagnoses: The differential diagnosis associated with the presentation includes (Mechanical fall, acute low back pain, fracture, subluxation, spinal stenosis, disc disease, contusion, sprain, strain, spasm) Lab Data MDM Lab Attestation statement: I reviewed the patient's lab results. Labs: Lab Results 08/04/22 Range/Units 14:26 PT 37.0 H (10.0-13.1) SEC INR 3.1 H (0.9-1.1) Independent Interpretation I performed an independent interpretation of an: Plain X-Ray (Bilateral knee x- ray, negative for acute traumatic injury) and CT Scan (CT scan lumbar spine, degenerative changes, some areas of disc space narrowing, no acute compression fracture or subluxation) Radiology Impression Discussion of test interpretation with radiology: I have reviewed the radiologist's reading. ( CT/CT lumbar spine wo IV con IMPRESSION: There is multilevel degenerative spondylosis of the lumbar spine with grade 1 retrolisthesis of L2 on L3. Grossly no evidence of canal compromise. There are varying degrees of neuroforaminal encroachment related to disc osteophyte spurring ) Prescription Management I considered prescription management with: Pain Medication Chronic Conditions Patient?s care impacted by: Other (Factor 5 laden) Discharge Plan Discharge Clinical Impression: Accidental fall, Acute bilateral low back pain, Acute bilateral knee pain Patient Disposition: Home, Self-Care Instructions: Acute Low Back Pain (ED), Knee Pain (ED), Arthralgia (ED), Fall Prevention (ED) Additional Instructions: For pain: Tylenol 1000 mg every 6 hours as needed Oxycodone 5 mg every 8 hours as needed - may cause drowsiness, constipation Prescriptions: New oxycodone 5 mg tablet 5 mg PO Q8H PRN (Reason: pain) Qty: 14 0RF Rx Instructions: Partial Fill upon patient request. docusate sodium 100 mg capsule 100 mg PO BID Qty: 20 0RF No Action (DME) lancing device Misc See Rx Instructions .ROUTE .MEDSUPPLY Qty: 1 8RF Rx Instructions: ACCU-CHECK DARLINE DEVICE ammonium lactate 12 % cream 1 applic topical BID Qty: 140 6RF (DME) lancets [Accu-Chek Fastclix Lancet Drum] Misc See Rx Instructions .ROUTE .MEDSUPPLY Qty: 100 8RF Rx Instructions: Check blood sugars Twice a day amlodipine 5 mg tablet 5 mg PO DAILY Qty: 90 8RF atorvastatin 40 mg tablet 40 mg PO DAILY Qty: 90 8RF furosemide 20 mg tablet 20 mg PO DAILY Qty: 90 8RF lisinopril 40 mg tablet 40 mg PO DAILY Qty: 90 8RF warfarin 5 mg tablet 5 mg PO DAILY Qty: 90 3RF Hold Instructions: Resume on 05/22/22. resume warfarin on 05/22/22 Protocol: Dose Management Condition: Thursday (Week One) Dose/Route: 2.5 mg Instruction: 0.5 x 5 mg tablets Condition: Thursday Dose/Route: 2.5 mg Instruction: 0.5 x 5 mg tablets Condition: Thursday Dose/Route: 2.5 mg Instruction: 0.5 x 5 mg tablets Condition: Thursday Dose/Route: 5 mg Instruction: 1 x 5 mg tablet Condition: Dose/Route: 5 mg Instruction: 1 x 5 mg tablet Condition: Thursday Dose/Route: 5 mg Instruction: 1 x 5 mg tablet Condition: Thursday Dose/Route: 2.5 mg Instruction: 0.5 x 5 mg tablets Condition: Thursday (Week Two) Dose/Route: 2.5 mg Instruction: 0.5 x 5 mg tablets Condition: Thursday Dose/Route: 5 mg Instruction: 1 x 5 mg tablet Condition: Thursday Dose/Route: 2.5 mg Instruction: 0.5 x 5 mg tablets Condition: Thursday Dose/Route: 5 mg Instruction: 1 x 5 mg tablet Condition: Dose/Route: 2.5 mg Instruction: 0.5 x 5 mg tablets Condition: Thursday Dose/Route: 5 mg Instruction: 1 x 5 mg tablet Condition: Thursday Dose/Route: 2.5 mg Instruction: 0.5 x 5 mg tablets Protocol Text: Adjustment Start Date: 07/31/22 INR Value: 1.7 INR Date: 07/31/22 Recheck Date: 08/04/22 Additional Instructions: AVOID GREENS TODAY AND TOMORROW, EAT REDS OR ORNAGES TODAY TO HELP RAISE THE INR (DME) lancing device [Adjustable Lancing Device] Misc See Rx Instructions .Route Qty: 1 0RF Rx Instructions: As directed (DME) blood-glucose meter [Accu-Chek Guide Glucose Meter] Misc See Rx Instructions .Route Qty: 1 0RF Rx Instructions: As directed (DME) Blood Glucose Test Strip See Rx Instructions .Route Qty: 50 8RF Rx Instructions: test blood sugar twice a day warfarin 1 mg tablet 1 mg PO DAILY Qty: 90 0RF Protocol: Dose Management Condition: Thursday (Week One) Dose/Route: 2.5 mg Instruction: 0.5 x 5 mg tablets Condition: Thursday Dose/Route: 2.5 mg Instruction: 0.5 x 5 mg tablets Condition: Thursday Dose/Route: 2.5 mg Instruction: 0.5 x 5 mg tablets Condition: Thursday Dose/Route: 5 mg Instruction: 1 x 5 mg tablet Condition: Dose/Route: 5 mg Instruction: 1 x 5 mg tablet Condition: Thursday Dose/Route: 5 mg Instruction: 1 x 5 mg tablet Condition: Thursday Dose/Route: 2.5 mg Instruction: 0.5 x 5 mg tablets Condition: Thursday (Week Two) Dose/Route: 2.5 mg Instruction: 0.5 x 5 mg tablets Condition: Thursday Dose/Route: 5 mg Instruction: 1 x 5 mg tablet Condition: Thursday Dose/Route: 2.5 mg Instruction: 0.5 x 5 mg tablets Condition: Thursday Dose/Route: 5 mg Instruction: 1 x 5 mg tablet Condition: Dose/Route: 2.5 mg Instruction: 0.5 x 5 mg tablets Condition: Thursday Dose/Route: 5 mg Instruction: 1 x 5 mg tablet Condition: Thursday Dose/Route: 2.5 mg Instruction: 0.5 x 5 mg tablets Protocol Text: Adjustment Start Date: 07/31/22 INR Value: 1.7 INR Date: 07/31/22 Recheck Date: 08/04/22 Additional Instructions: AVOID GREENS TODAY AND TOMORROW, EAT REDS OR ORNAGES TODAY TO HELP RAISE THE INR phenytoin sodium extended 100 mg capsule 300 mg PO BID Qty: 360 8RF cephalexin 500 mg capsule 500 mg PO QID 10 Days Qty: 40 0RF cetirizine 10 mg tablet 10 mg PO DAILY PRN (Reason: rash) Qty: 14 0RF multivitamin Tablet 1 tab PO DAILY cyanocobalamin (vitamin B-12) 1,000 mcg capsule 1,000 mcg PO DAILY lorazepam 0.5 mg tablet 0.5 mg PO TID PRN (Reason: anxiety) Qty: 90 3RF triamcinolone acetonide 0.5 % cream 1 appl topical TID Qty: 15 3RF methylprednisolone [Medrol (Genaro)] 4 mg tablets,dose pack See Rx Instructions PO PER PKG DIR Qty: 21 0RF Rx Instructions: PO PER PKG DIR (DME) blood-glucose meter Misc See Rx Instructions .ROUTE .MEDSUPPLY Qty: 1 0RF Rx Instructions: TEST 2 TIMES DAILY esomeprazole magnesium [Nexium] 20 mg capsule,delayed release(DR/EC) 20 mg PO DAILY glipizide 5 mg tablet 5 mg PO DAILY Referrals: Jerry Spain MD [Primary Care Provider] - 3 days
[2022-08-04] MEDS: oxyCODONE HCl Immed Release 5 MG TABLET PO (14:28)
[2022-08-04 14:34] VITALS: BP 172/68; PULSE 76; RESP 16; TEMP 36.6; O2SAT 97
[2022-08-04 14:42] LABS: INTERNATIONAL NORM RATIO 3.1 (0.9-1.1)
--- NOTE | 2022-08-04 15:58 | PC.NURSE ---
pt calm, cooperative, and pleasant. reports lower back pain from fall to which pt was medicated per mar. pt left lower extremity red, tender to touch, and mild edema. pt reports having recent infection in that leg to which she completed a prescribed abx for. pt changed into hospital pants from personal jeans for comfortability. urine sample obtained. vss. tm
[2022-08-04 16:12] VITALS: BP 146/64; PULSE 75; RESP 15; TEMP 36.7; O2SAT 98
== END 2022-08-04 17:12 | disposition home or self-care (01) ==
PROVIDERS: Emergency Provider Emergency Medicine; PCP Internal Medicine
DX: M54.50 Low back pain, unspecified (principal); M25.562 Pain in left knee; M25.561 Pain in right knee; Z79.899 Other long term (current) drug therapy
CPT/HCPCS: 36415; 72131; 73562; 85610; 99284

== ENCOUNTER → 2022-08-05 14:42 | Outpatient (BNVA) | payer MEDICARE, SELFPAY | PROVIDERS: PCP Internal Medicine; Visit Provider Internal Medicine ==

== ENCOUNTER → 2022-08-07 13:03 | Outpatient (BNVA) | payer MEDICARE, SELFPAY | PROVIDERS: PCP Internal Medicine; Visit Provider Internal Medicine | DX: Z86.718 Personal history of other venous thrombosis and embolism (principal); Z51.81 Encounter for therapeutic drug level monitoring; Z79.01 Long term (current) use of anticoagulants | CPT/HCPCS: 85610; 99211 ==

== ENCOUNTER → 2022-08-12 13:10 | Outpatient (BNVA) | payer MEDICARE, SELFPAY | PROVIDERS: PCP Internal Medicine; Visit Provider Internal Medicine | DX: I82.409 Acute embolism and thrombosis of unspecified deep veins of unspecified lower extremity (principal); Z79.01 Long term (current) use of anticoagulants; Z51.81 Encounter for therapeutic drug level monitoring | CPT/HCPCS: 85610; 99211 ==

== ENCOUNTER 2022-08-13 11:27 | Outpatient (REF) | payer MEDICARE, SELFPAY ==
--- NOTE | ~2022-08-13 | XR_ITS ---
EXAMINATION: XR HIP, RIGHT CLINICAL INFORMATION: Right hip pain. Recent fall. COMPARISON: CT lumbar spine 08/04/2022, CT pelvis 12/13/2021 TECHNIQUE: Two views of the right hip. FINDINGS: No fracture or dislocation. No focal hip joint narrowing or erosive change. Again, there is some mild spurring from the greater trochanter. There are degenerative changes again seen lumbosacral junction with disc narrowing and vertebral spurring. No diastases SI joints or pubis. Soft tissue planes unremarkable. XR/XR hip RT min 2V IMPRESSION: -No fracture or dislocation. -Degenerative disc changes lumbosacral junction.
== END 2022-08-13 11:28 | disposition home or self-care (01) ==
LOC: HO.XRAY 11:27
PROVIDERS: PCP Internal Medicine; Visit Provider Internal Medicine
DX: M25.551 Pain in right hip (principal)
CPT/HCPCS: 73502

== ENCOUNTER → 2022-08-21 13:12 | Outpatient (BNVA) | payer MEDICARE, SELFPAY | PROVIDERS: PCP Internal Medicine; Visit Provider Internal Medicine | DX: I82.409 Acute embolism and thrombosis of unspecified deep veins of unspecified lower extremity (principal); Z79.01 Long term (current) use of anticoagulants; Z51.81 Encounter for therapeutic drug level monitoring | CPT/HCPCS: 85610; 99211 ==

== ENCOUNTER → 2022-09-10 13:45 | Outpatient (BNVA) | payer MEDICARE, SELFPAY | PROVIDERS: PCP Internal Medicine; Visit Provider Internal Medicine | DX: I82.409 Acute embolism and thrombosis of unspecified deep veins of unspecified lower extremity (principal); Z79.01 Long term (current) use of anticoagulants; Z51.81 Encounter for therapeutic drug level monitoring | CPT/HCPCS: 85610; 99211 ==

== ENCOUNTER → 2022-09-24 13:17 | Outpatient (BNVA) | payer MEDICARE, SELFPAY | PROVIDERS: PCP Internal Medicine; Visit Provider Internal Medicine | DX: I82.409 Acute embolism and thrombosis of unspecified deep veins of unspecified lower extremity (principal); Z79.01 Long term (current) use of anticoagulants; Z51.81 Encounter for therapeutic drug level monitoring | CPT/HCPCS: 85610; 99211 ==

== ENCOUNTER → 2022-10-17 13:18 | Outpatient (BNVA) | payer MEDICARE, SELFPAY | PROVIDERS: PCP Internal Medicine; Visit Provider Internal Medicine | DX: I82.409 Acute embolism and thrombosis of unspecified deep veins of unspecified lower extremity (principal); Z51.81 Encounter for therapeutic drug level monitoring; Z79.01 Long term (current) use of anticoagulants | CPT/HCPCS: 85610; 99211 ==

== ENCOUNTER 2022-11-07 10:42 | Outpatient (AMB) | payer MEDICARE, SELFPAY ==
--- NOTE | 2022-11-07 10:46 | MHC.PC.OV ---
Vital Signs 11/07/22 10:47 Height 5 ft 2 in BMI Reason not done Patient refused/unable BP 132/68 Blood Pressure Location Lt brachial Position Sitting Pulse 81 Pulse Source Pulse Oximeter Pulse Oximetry (%) 95 Oxygen Delivery Method Room Air Intake Visit Reasons: Left ankle swelling Intake Note: Patient is here to follow up on left ankle swelling and blisters. Requesting for lab order and xray. 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 Accompanied by: Self / Same As Patient Allergies shrimp [SHRIMP] Allergy (Mild, Verified 11/07/22 10:47) HIVES No Known Drug Allergies Allergy (Unknown, Verified 11/07/22 10:47) Unknown Medication List - Last Reconciled 11/07/22 by Jerry Spain MD amlodipine 5 mg PO DAILY ammonium lactate 12% 1 appl topical BID atorvastatin 40 mg PO DAILY blood sugar diagnostic (Blood Glucose Test strips) test blood sugar twice a day blood-glucose meter TEST 2 TIMES DAILY blood-glucose meter (Accu-Chek Guide Glucose Meter) As directed cephalexin 250 mg PO Q6H cetirizine 10 mg PO DAILY PRN cyanocobalamin (vitamin B-12) 1,000 mcg PO DAILY docusate sodium 100 mg PO BID esomeprazole magnesium (Nexium) 20 mg PO DAILY furosemide 20 mg PO DAILY glipizide 5 mg PO DAILY lancing device ACCU-CHECK DARLINE DEVICE lancing device (Adjustable Lancing Device) As directed lisinopril 40 mg PO DAILY lorazepam 0.5 mg PO TID PRN multivitamin 1 tab PO DAILY phenytoin sodium extended 300 mg (3 x 100 mg) PO BID tizanidine 4 mg PO Q8H PRN triamcinolone acetonide 0.5% 1 appl topical TID warfarin 5 mg See Protocol PO DAILY warfarin 1 mg See Protocol PO DAILY Tobacco use date assessed: 11/07/22 Fall risk assessment: 2 + Falls in past year Last assessed Fall Risk: 11/07/22 Dental Screening Dental Screen Date: 11/07/22 Did you have a dental visit in the last 12 months?: Yes Did you have a dental problem in the last 6 months where you did not have access to dental care?: No Was dental information given to patient?: Patient has dentist HPI Left ankle swelling HPI Details left ankle pain for WEEK PFSH Medical History Diabetes mellitus with coincident hypertension DVT (deep venous thrombosis) Hyperlipidemia Hypertension Surgical History History of appendectomy History of cholecystectomy History of lumpectomy of right breast Family History Father Asthma Mother Diabetes Hypertension Colon cancer Other Substance use disorder Social History Housing: House Alcohol intake: never Patient Tobacco Use Status: Never used Tobacco e-Cigarette/Vaping Use: Never Used Second Hand Smoke Exposure: No Advance Directives Date on File: 02/08/20 service: No Current occupational status: employed Cognitive needs: No Hearing needs: No Vision needs: No Questionnaire PHQ-9 Over the last 2 weeks, how often have you been bothered by any of the following problems? Depression Screening Interpretation: Negative Source: Developed by Drs. Tee Esqueda, Cami Betts, Zac Arellano and colleagues, with an educational naz from [employer]. Thrive Questionnaire Date Thrive assessed: 04/29/22 JOEL-7 AMB Questionnaire JOEL-7 Date JOEL - 7 assessed: 07/30/22 Source: Developed by Drs. Tee Esqueda, Cami Betts, Zac Arellano and colleagues, with an educational naz from [employer]. Review of Systems Const Denies chills, Denies headache(s) and Denies weight loss ENT Denies headache(s) Card Denies chest pain, Denies syncope, Denies irregular heart rhythm and Denies dyspnea Resp Denies chest congestion, Denies cough and Denies dyspnea GI Denies abdominal pain, Denies change in stool character, Denies nausea and Denies vomiting Musc Denies deformity and Denies joint swelling Neuro Denies syncope and Denies headache(s) Physical exam (Primary Care) Vital Signs: Last Vital Signs Pulse 81 11/07/22 10:47 BP 132/68 11/07/22 10:47 Pulse Ox 95 11/07/22 10:47 Oxygen Delivery Method Room Air 11/07/22 10:47 Tobacco/Smoking Status: Tobacco use Status Tobacco use date assessed 11/07/22 11/07/22 10:53 Patient Tobacco Use Status Never used Tobacco 11/07/22 10:53 e-Cigarette/Vaping Use Never Used 11/07/22 10:53 Depression Screening Interpretation: Negative Thrive Assessment: Date of Thrive Assessment Date Thrive assessed 04/29/22 11/07/22 10:53 Const General: comfortable, no acute distress and alert Neck Neck: Yes no lymphadenopathy Thyroid: Thyroid normal Resp Effort & Inspection: normal respiratory effort Auscultation: clear to auscultation bilaterally Percussion: percussion normal Cardio Jugular venous distension: no JVD Palpation: normal PMI Rate: regular rate Rhythm: regular rhythm Heart sounds: S1 normal heart sound present and S2 normal heart sound present GI Inspection: Yes normal to inspection Palpation (GI): No hepatosplenomegaly present Skin Other: generalized rash on trunk arms and legs Extrem General: Yes no clubbing, cyanosis or edema Assessment and Plan Assessment & Plan (1) Ankle pain: Code(s): M25.579 - Pain in unspecified ankle and joints of unspecified foot Plan: xr Orders: Orders XR foot LT 2V Today M79.672 - Pain in left foot Comprehensive [place]. 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
[2022-11-07 10:47] VITALS: BP 132/68; PULSE 81; O2SAT 95
== END 2022-11-07 11:06 | disposition home or self-care (01) ==
PROVIDERS: PCP Internal Medicine; Visit Provider Internal Medicine
DX: M25.579 Pain in unspecified ankle and joints of unspecified foot (principal)
CPT/HCPCS: 99213

== ENCOUNTER 2022-11-07 11:11 | Outpatient (REF) | payer MEDICARE, SELFPAY ==
--- NOTE | ~2022-11-07 | XR_ITS ---
EXAMINATION: XR FOOT, LEFT CLINICAL INFORMATION: Pain. COMPARISON: Left ankle 12/02/2017 TECHNIQUE: AP, lateral, and oblique views of the left foot. FINDINGS: There is mild medially subluxed second through fifth MTP joints increase as able medial to lateral. Periarticular spurring is seen along the first MTP joint. PIP and DIP joints are unremarkable. There is dorsal intertarsal spurring. Also visualized is a small calcaneal and retrocalcaneal enthesophytes. The ankle mortise and subtalar joints are maintained normal. There is mild dorsal foot soft tissue swelling. Vascular calcifications are present along the dorsalis pedis. XR/XR foot LT 2V IMPRESSION: Subluxed second through fifth MTP joint. Degenerative periarticular spurring dorsal intertarsal joints and calcaneal heel and retrocalcaneal enthesophytes. No acute fracture. Mild dorsal foot soft tissue swelling.
[2022-11-07 11:27] LABS: MANUAL DIFF FLAG NO
[2022-11-07 12:33] LABS: Basophils Percent Auto 0.2 % (0-2); Eosinophils Percent Auto 0.9 % (0-4); Hematocrit 42.4 % (37.0-47.0); Imm Gran Abs Auto 0.02 X10*3/uL (0.00-0.03); Imm Gran Pct Auto 0.4 % (0.0-0.4); Lymphocytes Percent Auto 22.5 % (20-40); Mean Corpuscular Hemoglobin 34.3 pg (27.0-33.0); Mean Corpuscular Volume 103.9 fL (80.0-98.0); Monocytes Absolute Auto 0.3 X10*3/uL (0.1-1.2); Monocytes Percent Auto 6.5 % (2-11); Neutrophils Absolute Auto 3.2 x10*3/uL (2.0-8.3); Neutrophils Percent Auto 69.5 % (45-73); Platelet Count 186 X10*3/uL (160-400); Red Blood Count 4.08 X10*6/uL (4.20-5.50); Red Cell Distribution Width 12.6 % (11.0-16.0); White Blood Count 4.6 X10*3/uL (4.8-10.8)
[2022-11-07 12:34] LABS: Estimated Average Glucose 108 mg/dL; Hemoglobin A1c % 5.4 %
[2022-11-07 13:32] LABS: Alanine Aminotransferase 14 U/L (0-31); Albumin Level 3.8 g/dL (3.5-5.0); Alkaline Phosphatase 67 U/L (39-117); Anion Gap 10 (12-20); Aspartate Amino Transferase 11 U/L (5-31); Bilirubin Total 0.2 mg/dL (0.0-1.0); Blood Urea Nitrogen 12 mg/dL (9-16); Calcium 9.3 mg/dL (8.4-10.2); Carbon Dioxide 32 mmol/L (22-29); Chloride 106 mmol/L (96-108); Cholesterol 183 mg/dL; Estimated Glomerular Filt Rate > 60; Glucose Fasting 100 mg/dL (60-99); HDL Cholesterol 59 mg/dL; LDL Cholesterol Calculated 96 mg/dl; Potassium 4.1 mmol/L (3.3-5.1); Sodium 144 mmol/L (135-145); Thyroid Stimulating Hormone 2.93 uIU/mL (0.32-4.0); Total Protein 6.8 g/dL (6.5-8.0); Triglycerides 140 mg/dL
== END 2022-11-07 11:12 | disposition home or self-care (01) ==
LOC: HO.XRAY 11:11
PROVIDERS: PCP Internal Medicine; Visit Provider Internal Medicine
DX: M79.672 Pain in left foot (principal); R73.9 Hyperglycemia, unspecified; N28.9 Disorder of kidney and ureter, unspecified; D64.9 Anemia, unspecified; E03.9 Hypothyroidism, unspecified; E78.5 Hyperlipidemia, unspecified; Z86.718 Personal history of other venous thrombosis and embolism; Z51.81 Encounter for therapeutic drug level monitoring; Z79.01 Long term (current) use of anticoagulants
CPT/HCPCS: 36415; 73620; 80053; 80061; 83036; 84443; 85025; 85610; 99211

== ENCOUNTER 2022-11-07 11:50 | Outpatient (AMB) | payer MEDICARE, SELFPAY ==
[2022-11-07 11:59] LABS: Prothrombin Time Whole Bld POC 33.6 sec (11.1-13.5); ~PT, ~INR - Anti Coag Clinic 2.8 (0.9-1.1)
--- NOTE | 2022-11-07 12:20 | MHC.OFFVISCO ---
Intake Intake Visit Reasons: Anticoagulation Allergies shrimp [SHRIMP] Allergy (Mild, Verified 11/07/22 11:50) HIVES No Known Drug Allergies Allergy (Unknown, Verified 11/07/22 11:50) Unknown Medication List - Last Reconciled 11/07/22 by Lubna Layne RN amlodipine 5 mg PO DAILY ammonium lactate 12% 1 appl topical BID atorvastatin 40 mg PO DAILY blood sugar diagnostic (Blood Glucose Test strips) test blood sugar twice a day blood-glucose meter TEST 2 TIMES DAILY blood-glucose meter (Accu-Chek Guide Glucose Meter) As directed cephalexin 250 mg PO Q6H cetirizine 10 mg PO DAILY PRN cyanocobalamin (vitamin B-12) 1,000 mcg PO DAILY docusate sodium 100 mg PO BID esomeprazole magnesium (Nexium) 20 mg PO DAILY furosemide 20 mg PO DAILY glipizide 5 mg PO DAILY lancing device ACCU-CHECK DARLINE DEVICE lancing device (Adjustable Lancing Device) As directed lisinopril 40 mg PO DAILY lorazepam 0.5 mg PO TID PRN multivitamin 1 tab PO DAILY phenytoin sodium extended 300 mg (3 x 100 mg) PO BID tizanidine 4 mg PO Q8H PRN triamcinolone acetonide 0.5% 1 appl topical TID warfarin 5 mg See Protocol PO DAILY warfarin 1 mg See Protocol PO DAILY Nursing Note INR: 2.8 in therapeutic range PT STATES HE HAS BEEN TAKING EXTRA WARFARIN TABLETS BECAUSE SHE WAS CONCERNED ABOUT HER LEGS, SHE HAS CELLULITIS IN THEM R/T TO POOR CICULATION SHE STATED THEY FELT HEAVY AND SHE WAS CONCERNED ABOUT CLOTTING, SHE WAS ADVISED TO KEEP ACS INFORMED OF THESE DICISIONS, SHE IS NOW STARTING AN ANTBX FOR CELLULITIS TODAY WHICH CAN RAISE THE INR CEPHALEXIN 250MG PO QID X 6 DAYS - ONSET UNCERTAIN Medications and supplements reviewed No changes in health, diet, medications, or supplements, Denies any signs and symptoms of bleeding or bruising or clotting. Bleeding, bruising, clotting discussed Nutritional guidance given EAT GREENS OVER THE WEEKEND Dose: REDUCE DOWN FROM 5MG X 5 DAYS TO 5MG X 3 DAYS/ 2.5MG X 4 DAYS F/U INR: NEXT WEEK 11/13/22 Patient verbalizes understanding of instructions given Anti-Coag Initial Assessment Social Hx Patient Tobacco Use Status: Never used Tobacco alcohol intake: never Alcohol intake frequency: does not drink Coding Level of Care Code Est Patient Level 1 Diagnoses Current use of anticoagulant therapy Z79.01 Results AMB INR Fingerstick AMB INR Fingerstick 2.8 Last Edit by Lubna Layne RN on 11/07/22 11:59 manual entry Assessment & Plan Assessment & Plan (1) Current use of anticoagulant therapy: 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
== END 2022-11-07 14:03 | disposition home or self-care (01) ==
LOC: HO.ACS 11:50
PROVIDERS: PCP Internal Medicine; Visit Provider Internal Medicine
DX: Z79.01 Long term (current) use of anticoagulants (principal)

== ENCOUNTER 2022-11-13 13:06 | Outpatient (AMB) | payer MEDICARE, SELFPAY ==
[2022-11-13 13:28] LABS: Prothrombin Time Whole Bld POC 38.4 sec (11.1-13.5); ~PT, ~INR - Anti Coag Clinic 3.2 (0.9-1.1)
--- NOTE | 2022-11-13 13:34 | MHC.OFFVISCO ---
Intake Intake Visit Reasons: Anticoagulation Allergies shrimp [SHRIMP] Allergy (Mild, Verified 11/13/22 13:21) HIVES No Known Drug Allergies Allergy (Unknown, Verified 11/13/22 13:21) Unknown Medication List - Last Reconciled 11/13/22 by Clover Garrett RN amlodipine 5 mg PO DAILY ammonium lactate 12% 1 appl topical BID atorvastatin 40 mg PO DAILY blood sugar diagnostic (Blood Glucose Test strips) test blood sugar twice a day blood-glucose meter TEST 2 TIMES DAILY blood-glucose meter (Accu-Chek Guide Glucose Meter) As directed cephalexin 250 mg PO Q6H cetirizine 10 mg PO DAILY PRN cyanocobalamin (vitamin B-12) 1,000 mcg PO DAILY docusate sodium 100 mg PO BID esomeprazole magnesium (Nexium) 20 mg PO DAILY furosemide 20 mg PO DAILY glipizide 5 mg PO DAILY lancing device ACCU-CHECK DARLINE DEVICE lancing device (Adjustable Lancing Device) As directed lisinopril 40 mg PO DAILY lorazepam 0.5 mg PO TID PRN multivitamin 1 tab PO DAILY phenytoin sodium extended 300 mg (3 x 100 mg) PO BID tizanidine 4 mg PO Q8H PRN triamcinolone acetonide 0.5% 1 appl topical TID warfarin 5 mg See Protocol PO DAILY warfarin 1 mg See Protocol PO DAILY Nursing Note Amb to [facility] late for appt, was scheduled for 1130 presented at 1300, feeling cranky Medications and supplements reviewed, completing antibiotic today-cephalexin for an infection in my ankle denies a wound its cellulitis reviewed with pt antibiotic can increase INR, unspecified onset and sometimes can occur a week after completion, pt admits after much discussion that she really isn't a green eater sts she had an xray of her left ankle, waiting for results, sts last week she took an extra 5mg because I didn't want a blood clot , sts pain was in the ankle, denied any calf pain, no new swelling, no reddness to calf. discussed with pt she should not be dosing herself and should be consulting PCP No other changes in health, diet, medications, or supplements Denies any unusual signs and symptoms of bruising, bleeding Denies any new Chest pain, SOB, or clotting INR: 3.2 above therapeutic range Nutritional guidance given:try greens if can, sts she got a veggie platter and will try the raw broccoli Dose: secondary to antibiotic, INR above range and not a green eater decrease dose tomorrow to 2.5mg vs 5mgthen resume usual dosing on thursday and to follow dosing sheet as was vague as to days she takes 5mg vs 2.5mg, usual dosing;M/W/F 5mg and Ramirez/T//Sa 2.5mg F/U INR: 1 week Patient verbalizes understanding of instructions given with accurate read back/ teach back of dosing Anti-Coag Initial Assessment Social Hx Patient Tobacco Use Status: Never used Tobacco alcohol intake: never Alcohol intake frequency: does not drink Coding Level of Care Code Est Patient Level 1 Diagnoses Current use of anticoagulant therapy Z79.01 Time Spent (min) 20 Assessment & Plan Assessment & Plan (1) Current use of anticoagulant therapy: 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
== END 2022-11-13 13:54 | disposition home or self-care (01) ==
LOC: HO.ACS 13:06
PROVIDERS: PCP Internal Medicine; Visit Provider Internal Medicine
DX: Z79.01 Long term (current) use of anticoagulants (principal)

== ENCOUNTER → 2022-11-13 13:06 | Outpatient (BNVA) | payer MEDICARE, SELFPAY | PROVIDERS: PCP Internal Medicine; Visit Provider Internal Medicine | DX: I82.409 Acute embolism and thrombosis of unspecified deep veins of unspecified lower extremity (principal); Z79.01 Long term (current) use of anticoagulants; Z51.81 Encounter for therapeutic drug level monitoring | CPT/HCPCS: 85610; 99211 ==

== ENCOUNTER 2022-11-24 13:03 | Outpatient (AMB) | payer MEDICARE, SELFPAY ==
--- NOTE | 2022-11-24 13:15 | MHC.OFFVISCO ---
Intake Intake Visit Reasons: Anticoagulation Allergies shrimp [SHRIMP] Allergy (Mild, Verified 11/24/22 13:08) HIVES No Known Drug Allergies Allergy (Unknown, Verified 11/24/22 13:08) Unknown Medication List - Last Reconciled 11/24/22 by Lubna Layne RN amlodipine 5 mg PO DAILY ammonium lactate 12% 1 appl topical BID atorvastatin 40 mg PO DAILY blood sugar diagnostic (Blood Glucose Test strips) test blood sugar twice a day blood-glucose meter TEST 2 TIMES DAILY blood-glucose meter (Accu-Chek Guide Glucose Meter) As directed cetirizine 10 mg PO DAILY PRN cyanocobalamin (vitamin B-12) 1,000 mcg PO DAILY docusate sodium 100 mg PO BID esomeprazole magnesium (Nexium) 20 mg PO DAILY furosemide 20 mg PO DAILY glipizide 5 mg PO DAILY lancing device ACCU-CHECK DARLINE DEVICE lancing device (Adjustable Lancing Device) As directed lisinopril 40 mg PO DAILY lorazepam 0.5 mg PO TID PRN multivitamin 1 tab PO DAILY phenytoin sodium extended 300 mg (3 x 100 mg) PO BID tizanidine 4 mg PO Q8H PRN triamcinolone acetonide 0.5% 1 appl topical TID warfarin 5 mg See Protocol PO DAILY warfarin 1 mg See Protocol PO DAILY Nursing Note INR 5.4?out of therapeutic range Medications and supplements reviewed Patient status: Pt may have taken and extra dose of warfarin =10mg x 1 day, plus completed antbx about 10 days ago that can have delayed onsetd, plus had GI up set x 1 day with diarrhea 2-3 times and vomiting x 2- questionable spoiled meal from meals on wheels Medications or supplements: no changes Diet: better, not a big green eater, likes occ rare broccili Denies any signs and symptoms of bleeding or clotting or unusual bruising Bleeding, bruising, clotting discussed Nutritional guidance given: eat Dose: hold today then decrease to 5mg x 2 days/ 2.5mg x 5 days F/U INR Date: 4 days ?? Patient verbalizing understanding of instructions given. WILL CALL MD OR GO TO ER WITH ANY S/SX OF BLEEDING OR BLACK OR BLOODY EMISIS OR STOOLS T/C TO PCP SPOKE WITH ORALIA REGARDING PT STATUS AND PLAN OF CARE TO CONVEY TO PCP Anti-Coag Initial Assessment Social Hx Patient Tobacco Use Status: Never used Tobacco alcohol intake: never Alcohol intake frequency: does not drink Coding Level of Care Code Est Patient Level 1 Diagnoses Current use of anticoagulant therapy Z79.01 Results AMB INR Fingerstick AMB INR Fingerstick 5.4 Last Edit by Lubna Layne RN on 11/24/22 13:27 md notified Lubna Layne 11/24/22 13:27 interface failure Assessment & Plan Assessment & Plan (1) Current use of anticoagulant therapy: Code(s): Z79.01 - [facility] (current) use of 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
[2022-11-24 13:25] LABS: Prothrombin Time Whole Bld POC 64.9 sec (11.1-13.5); ~PT, ~INR - Anti Coag Clinic 5.4 (0.9-1.1)
== END 2022-11-24 13:42 | disposition home or self-care (01) ==
LOC: HO.ACS 13:03
PROVIDERS: PCP Internal Medicine; Visit Provider Internal Medicine
DX: Z79.01 Long term (current) use of anticoagulants (principal)

== ENCOUNTER → 2022-11-24 13:03 | Outpatient (BNVA) | payer MEDICARE, SELFPAY | PROVIDERS: PCP Internal Medicine; Visit Provider Internal Medicine | DX: I82.409 Acute embolism and thrombosis of unspecified deep veins of unspecified lower extremity (principal); Z79.01 Long term (current) use of anticoagulants; Z51.81 Encounter for therapeutic drug level monitoring | CPT/HCPCS: 85610; 99211 ==

== ENCOUNTER 2022-11-27 12:51 | Outpatient (AMB) | payer MEDICARE, SELFPAY ==
[2022-11-27 13:00] LABS: Prothrombin Time Whole Bld POC 27.2 sec (11.1-13.5); ~PT, ~INR - Anti Coag Clinic 2.3 (0.9-1.1)
--- NOTE | 2022-11-27 13:00 | MHC.OFFVISCO ---
Intake Intake Visit Reasons: Anticoagulation Allergies shrimp [SHRIMP] Allergy (Mild, Verified 11/27/22 12:55) HIVES No Known Drug Allergies Allergy (Unknown, Verified 11/27/22 12:55) Unknown Medication List - Last Reconciled 11/27/22 by Bhakti Baez RN amlodipine 5 mg PO DAILY ammonium lactate 12% 1 appl topical BID atorvastatin 40 mg PO DAILY blood sugar diagnostic (Blood Glucose Test strips) test blood sugar twice a day blood-glucose meter TEST 2 TIMES DAILY blood-glucose meter (Accu-Chek Guide Glucose Meter) As directed cetirizine 10 mg PO DAILY PRN cyanocobalamin (vitamin B-12) 1,000 mcg PO DAILY docusate sodium 100 mg PO BID esomeprazole magnesium (Nexium) 20 mg PO DAILY furosemide 20 mg PO DAILY glipizide 5 mg PO DAILY lancing device ACCU-CHECK DARLINE DEVICE lancing device (Adjustable Lancing Device) As directed lisinopril 40 mg PO DAILY lorazepam 0.5 mg PO TID PRN multivitamin 1 tab PO DAILY phenytoin sodium extended 300 mg (3 x 100 mg) PO BID tizanidine 4 mg PO Q8H PRN triamcinolone acetonide 0.5% 1 appl topical TID warfarin 5 mg See Protocol PO DAILY warfarin 1 mg See Protocol PO DAILY Nursing Note INR: 2.3- in therapeutic range Medications and supplements reviewed No changes in health, diet, medications, or supplements, Denies any signs and symptoms of bleeding or bruising or clotting. 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
== END 2022-11-27 13:13 | disposition home or self-care (01) ==
LOC: HO.ACS 12:51
PROVIDERS: PCP Internal Medicine; Visit Provider Internal Medicine
DX: Z79.01 Long term (current) use of anticoagulants (principal)

== ENCOUNTER → 2022-11-27 12:51 | Outpatient (BNVA) | payer MEDICARE, SELFPAY | PROVIDERS: PCP Internal Medicine; Visit Provider Internal Medicine | DX: I82.409 Acute embolism and thrombosis of unspecified deep veins of unspecified lower extremity (principal); Z79.01 Long term (current) use of anticoagulants; Z51.81 Encounter for therapeutic drug level monitoring | CPT/HCPCS: 85610; 99211 ==

== ENCOUNTER 2022-12-03 12:39 | Outpatient (RCR) | payer MEDICARE, SELFPAY | END 2023-01-10 16:00 | disposition home or self-care (01) | LOC: HO.WCC 12:39 | PROVIDERS: PCP Internal Medicine; Visit Provider Surgery | DX: I87.332 Chronic venous hypertension (idiopathic) with ulcer and inflammation of left lower extremity (principal); L97.822 Non-pressure chronic ulcer of other part of left lower leg with fat layer exposed; Q82.0 Hereditary lymphedema; E66.9 Obesity, unspecified; Z79.01 Long term (current) use of anticoagulants; Z79.899 Other long term (current) drug therapy; Z86.718 Personal history of other venous thrombosis and embolism | CPT/HCPCS: 11042; 97597; 99212 ==

== ENCOUNTER 2022-12-04 10:57 | Outpatient (AMB) | payer MEDICARE, SELFPAY ==
--- NOTE | 2022-12-04 11:12 | MHC.OFFVISCO ---
Intake Intake Visit Reasons: Anticoagulation Allergies shrimp [SHRIMP] Allergy (Mild, Verified 12/04/22 11:06) HIVES No Known Drug Allergies Allergy (Unknown, Verified 12/04/22 11:06) Unknown Medication List - Last Reconciled 12/04/22 by Bhakti Baez RN amlodipine 5 mg PO DAILY ammonium lactate 12% 1 appl topical BID atorvastatin 40 mg PO DAILY blood sugar diagnostic (Blood Glucose Test strips) test blood sugar twice a day blood-glucose meter TEST 2 TIMES DAILY blood-glucose meter (Accu-Chek Guide Glucose Meter) As directed cephalexin 250 mg PO Q6H cetirizine 10 mg PO DAILY PRN cyanocobalamin (vitamin B-12) 1,000 mcg PO DAILY docusate sodium 100 mg PO BID esomeprazole magnesium (Nexium) 20 mg PO DAILY furosemide 20 mg PO DAILY glipizide 5 mg PO DAILY lancing device ACCU-CHECK DARLINE DEVICE lancing device (Adjustable Lancing Device) As directed lisinopril 40 mg PO DAILY lorazepam 0.5 mg PO TID PRN multivitamin 1 tab PO DAILY phenytoin sodium extended 300 mg (3 x 100 mg) PO BID tizanidine 4 mg PO Q8H PRN triamcinolone acetonide 0.5% 1 appl topical TID warfarin 5 mg See Protocol PO DAILY warfarin 1 mg See Protocol PO DAILY Nursing Note INR 1.1-?? out of therapeutic range Medications and supplements reviewed Patient status: pt to wound clinic for lower extrem wound pt denies missed doses, states using 5mg tab warfarin only Medications or supplements: cephalexain 250mg q 6- finishes today, started on 11/28/22 Diet: same Denies any signs and symptoms of bleeding or clotting or unusual bruising Bleeding, bruising, clotting discussed - aware at risk for clotting Nutritional guidance given: no greens for 2-3 days, eat reds/cherries Dose: 7.5mg today, 5mg tomm then cont reg 5mg x 2, 2.5mg x 5 F/U INR Date : thursday12/08/22?? Patient verbalizing understanding of instructions given. pcp office dr crowell called with low inr/dosing and f/u appt- spoke to katherin at 1125 Anti-Coag Initial Assessment Social Hx Patient Tobacco Use Status: Never used Tobacco alcohol intake: never Alcohol intake frequency: does not drink Coding Level of Care Code Est Patient Level 1 Diagnoses Current use of anticoagulant therapy Z79.01 Results AMB INR Fingerstick AMB INR Fingerstick 1.1 Last Edit by Bhakti Baez RN on 12/04/22 11:16 Assessment & Plan Assessment & Plan (1) Current use of anticoagulant therapy: Code(s): Z79.01 - halfway (current) use of 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
[2022-12-05 10:32] LABS: Prothrombin Time Whole Bld POC 12.7 sec (11.1-13.5); ~PT, ~INR - Anti Coag Clinic 1.1 (0.9-1.1)
== END 2022-12-04 11:27 | disposition home or self-care (01) ==
LOC: HO.ACS 10:57
PROVIDERS: PCP Internal Medicine; Visit Provider Internal Medicine
DX: Z79.01 Long term (current) use of anticoagulants (principal)

== ENCOUNTER → 2022-12-04 10:57 | Outpatient (BNVA) | payer MEDICARE, SELFPAY | PROVIDERS: PCP Internal Medicine; Visit Provider Internal Medicine | DX: I82.409 Acute embolism and thrombosis of unspecified deep veins of unspecified lower extremity (principal); Z79.01 Long term (current) use of anticoagulants; Z51.81 Encounter for therapeutic drug level monitoring | CPT/HCPCS: 85610; 99211 ==

== ENCOUNTER 2022-12-08 10:29 | Outpatient (AMB) | payer MEDICARE, SELFPAY ==
--- NOTE | 2022-12-08 10:50 | MHC.OFFVISCO ---
Intake Intake Visit Reasons: Anticoagulation Allergies shrimp [SHRIMP] Allergy (Mild, Verified 12/08/22 10:45) HIVES No Known Drug Allergies Allergy (Unknown, Verified 12/08/22 10:45) Unknown Medication List - Last Reconciled 12/08/22 by Bhakti Baez RN amlodipine 5 mg PO DAILY ammonium lactate 12% 1 appl topical BID atorvastatin 40 mg PO DAILY blood sugar diagnostic (Blood Glucose Test strips) test blood sugar twice a day blood-glucose meter TEST 2 TIMES DAILY blood-glucose meter (Accu-Chek Guide Glucose Meter) As directed cetirizine 10 mg PO DAILY PRN cyanocobalamin (vitamin B-12) 1,000 mcg PO DAILY docusate sodium 100 mg PO BID esomeprazole magnesium (Nexium) 20 mg PO DAILY furosemide 20 mg PO DAILY glipizide 5 mg PO DAILY lancing device ACCU-CHECK DARLINE DEVICE lancing device (Adjustable Lancing Device) As directed lisinopril 40 mg PO DAILY lorazepam 0.5 mg PO TID PRN multivitamin 1 tab PO DAILY phenytoin sodium extended 300 mg (3 x 100 mg) PO BID tizanidine 4 mg PO Q8H PRN triamcinolone acetonide 0.5% 1 appl topical TID warfarin 5 mg See Protocol PO DAILY Nursing Note INR 1.4-? out of therapeutic range- denies missed doses, prev inr 1.1 Medications and supplements reviewed Patient status: pt states infection left lower leg, goes to wound clinic weekly Medications or supplements: no changes Diet: same Denies any signs and symptoms of bleeding or clotting or unusual bruising Bleeding, bruising, clotting discussed Nutritional guidance given: no greens , eat reds to raise inr Dose: 7.5mg today, 5mg tomm then increase weekly dosing 5mg x 3, 2.5mg x 4 F/U INR Date : thursday12/12/22 Patient verbalizing understanding of instructions given. pcp office- dr crowell called with low inr/dosing and f/u appt. 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
[2022-12-08 10:52] LABS: Prothrombin Time Whole Bld POC 16.9 sec (11.1-13.5); ~PT, ~INR - Anti Coag Clinic 1.4 (0.9-1.1)
== END 2022-12-08 11:08 | disposition home or self-care (01) ==
LOC: HO.ACS 10:29
PROVIDERS: PCP Internal Medicine; Visit Provider Internal Medicine
DX: Z79.01 Long term (current) use of anticoagulants (principal)

== ENCOUNTER → 2022-12-08 10:29 | Outpatient (BNVA) | payer MEDICARE, SELFPAY | PROVIDERS: PCP Internal Medicine; Visit Provider Internal Medicine | DX: I82.409 Acute embolism and thrombosis of unspecified deep veins of unspecified lower extremity (principal); Z79.01 Long term (current) use of anticoagulants; Z51.81 Encounter for therapeutic drug level monitoring | CPT/HCPCS: 85610; 99211 ==

== ENCOUNTER 2022-12-12 10:47 | Outpatient (AMB) | payer MEDICARE, SELFPAY ==
--- NOTE | 2022-12-12 11:18 | MHC.OFFVISCO ---
Intake Intake Visit Reasons: Anticoagulation Allergies shrimp [SHRIMP] Allergy (Mild, Verified 12/12/22 11:12) HIVES No Known Drug Allergies Allergy (Unknown, Verified 12/12/22 11:12) Unknown Medication List - Last Reconciled 12/12/22 by Lubna Layne RN amlodipine 5 mg PO DAILY ammonium lactate 12% 1 appl topical BID atorvastatin 40 mg PO DAILY blood sugar diagnostic (Blood Glucose Test strips) test blood sugar twice a day blood-glucose meter TEST 2 TIMES DAILY blood-glucose meter (Accu-Chek Guide Glucose Meter) As directed cetirizine 10 mg PO DAILY PRN cyanocobalamin (vitamin B-12) 1,000 mcg PO DAILY docusate sodium 100 mg PO BID esomeprazole magnesium (Nexium) 20 mg PO DAILY furosemide 20 mg PO DAILY glipizide 5 mg PO DAILY lancing device ACCU-CHECK DARLINE DEVICE lancing device (Adjustable Lancing Device) As directed lisinopril 40 mg PO DAILY lorazepam 0.5 mg PO TID PRN multivitamin 1 tab PO DAILY phenytoin sodium extended 300 mg (3 x 100 mg) PO BID tizanidine 4 mg PO Q8H PRN triamcinolone acetonide 0.5% 1 appl topical TID warfarin 5 mg See Protocol PO DAILY Nursing Note INR: 2.2 in therapeutic range Medications and supplements reviewed HAS A SMALL WOUND BEING TREATED AT WOUND CLINIC - WEARING COMPRESSION SOCK ENC TO MAKE SURE NOT TOO TIGHT, ENC THAT SHE NOT ADJUST HER WARFARIN, Denies any signs and symptoms of bleeding or bruising or clotting. Bleeding, bruising, clotting discussed Nutritional guidance given - EAT A MIX OF FRUITS AND VEGETABLES Dose: 5MG X 3 DAYS/ 2.5MG X 4 DAYS F/U INR: 1 WEEK PT CONCERNED ABOUT HER B/P 140 / 62 HR 72 REGULAR SHE IS CONCERNED ABOUT HER WEIGHT AND CLOTTING - ENC TO WALK, DRINK WATER, EAT MIX OF FRUITS AND VEGETABLES , SHE HAS A SMALL AREA BELOW HER KNEE THAT MAY BE A SUPERFICIAL CLOT OR FATTY TUMOR SAME LEG SMALL WOUND BEING TREATED - WILL SEND INFORMATION TO PCP Patient verbalizes understanding of instructions given Anti-Coag Initial Assessment Social Hx Patient Tobacco Use Status: Never used Tobacco alcohol intake: never Alcohol intake frequency: does not drink Coding Level of Care Code Est Patient Level 1 Diagnoses Current use of anticoagulant therapy Z79.01 Assessment & Plan Assessment & Plan (1) Current use of anticoagulant therapy: Code(s): Z79.01 - nursing home (current) use of 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
[2022-12-12 11:19] LABS: Prothrombin Time Whole Bld POC 26.4 sec (11.1-13.5); ~PT, ~INR - Anti Coag Clinic 2.2 (0.9-1.1)
== END 2022-12-12 11:37 | disposition home or self-care (01) ==
LOC: HO.ACS 10:47
PROVIDERS: PCP Internal Medicine; Visit Provider Internal Medicine
DX: Z79.01 Long term (current) use of anticoagulants (principal)

== ENCOUNTER → 2022-12-12 10:47 | Outpatient (BNVA) | payer MEDICARE, SELFPAY | PROVIDERS: PCP Internal Medicine; Visit Provider Internal Medicine | DX: I82.409 Acute embolism and thrombosis of unspecified deep veins of unspecified lower extremity (principal); Z79.01 Long term (current) use of anticoagulants; Z51.81 Encounter for therapeutic drug level monitoring | CPT/HCPCS: 85610; 99211 ==

== ENCOUNTER 2022-12-22 13:01 | Outpatient (AMB) | payer MEDICARE, SELFPAY ==
--- NOTE | 2022-12-22 13:09 | MHC.OFFVISCO ---
Intake Intake Visit Reasons: Anticoagulation Allergies shrimp [SHRIMP] Allergy (Mild, Verified 12/22/22 13:05) HIVES No Known Drug Allergies Allergy (Unknown, Verified 12/22/22 13:05) Unknown Medication List - Last Reconciled 12/22/22 by Bhakti Baez RN amlodipine 5 mg PO DAILY ammonium lactate 12% 1 appl topical BID atorvastatin 40 mg PO DAILY blood sugar diagnostic (Blood Glucose Test strips) test blood sugar twice a day blood-glucose meter TEST 2 TIMES DAILY blood-glucose meter (Accu-Chek Guide Glucose Meter) As directed cetirizine 10 mg PO DAILY PRN cyanocobalamin (vitamin B-12) 1,000 mcg PO DAILY docusate sodium 100 mg PO BID esomeprazole magnesium (Nexium) 20 mg PO DAILY furosemide 20 mg PO DAILY glipizide 5 mg PO DAILY lancing device ACCU-CHECK DARLINE DEVICE lancing device (Adjustable Lancing Device) As directed lisinopril 40 mg PO DAILY lorazepam 0.5 mg PO TID PRN multivitamin 1 tab PO DAILY phenytoin sodium extended 300 mg (3 x 100 mg) PO BID tizanidine 4 mg PO Q8H PRN triamcinolone acetonide 0.5% 1 appl topical TID warfarin 5 mg See Protocol PO DAILY Nursing Note INR 1.9-? out of therapeutic range Medications and supplements reviewed Patient status: small wound on left lower leg, dressing changes qod, goes to wound clinic weekly Medications or supplements: no changes Diet: same Denies any signs and symptoms of bleeding or clotting or unusual bruising Bleeding, bruising, clotting discussed Nutritional guidance given: no greens for 2 days, eat a red today Dose: 5mg today and tomm, then cont reg 5mg x 3, 2.5mg x 4 F/U INR Date : 1week??- pt req 01/01/23 Patient verbalizing understanding of instructions given. Anti-Coag Initial Assessment Social Hx Patient Tobacco Use Status: Never used Tobacco alcohol intake: never Alcohol intake frequency: does not drink Coding Level of Care Code Est Patient Level 1 Diagnoses Current use of anticoagulant therapy Z79.01 Assessment & Plan Assessment & Plan (1) Current use of anticoagulant therapy: Code(s): Z79.01 - [facility] (current) use of 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
[2022-12-22 13:10] LABS: Prothrombin Time Whole Bld POC 22.8 sec (11.1-13.5); ~PT, ~INR - Anti Coag Clinic 1.9 (0.9-1.1)
== END 2022-12-22 13:18 | disposition home or self-care (01) ==
LOC: HO.ACS 13:01
PROVIDERS: PCP Internal Medicine; Visit Provider Internal Medicine
DX: Z79.01 Long term (current) use of anticoagulants (principal)

== ENCOUNTER → 2022-12-22 13:01 | Outpatient (BNVA) | payer MEDICARE, SELFPAY | PROVIDERS: PCP Internal Medicine; Visit Provider Internal Medicine | DX: I82.409 Acute embolism and thrombosis of unspecified deep veins of unspecified lower extremity (principal); Z79.01 Long term (current) use of anticoagulants; Z51.81 Encounter for therapeutic drug level monitoring | CPT/HCPCS: 85610; 99211 ==

== ENCOUNTER 2023-01-01 13:09 | Outpatient (AMB) | payer MEDICARE, SELFPAY ==
--- NOTE | 2023-01-01 13:32 | MHC.OFFVISCO ---
Intake Intake Visit Reasons: Anticoagulation Allergies shrimp [SHRIMP] Allergy (Mild, Verified 01/01/23 13:21) HIVES No Known Drug Allergies Allergy (Unknown, Verified 01/01/23 13:21) Unknown Medication List - Last Reconciled 01/01/23 by Clover Garrett RN amlodipine 5 mg PO DAILY ammonium lactate 12% 1 appl topical BID atorvastatin 40 mg PO DAILY blood sugar diagnostic (Blood Glucose Test strips) test blood sugar twice a day blood-glucose meter TEST 2 TIMES DAILY blood-glucose meter (Accu-Chek Guide Glucose Meter) As directed cetirizine 10 mg PO DAILY PRN cyanocobalamin (vitamin B-12) 1,000 mcg PO DAILY docusate sodium 100 mg PO BID esomeprazole magnesium (Nexium) 20 mg PO DAILY furosemide 20 mg PO DAILY glipizide 5 mg PO DAILY lancing device ACCU-CHECK DARLINE DEVICE lancing device (Adjustable Lancing Device) As directed lisinopril 40 mg PO DAILY lorazepam 0.5 mg PO TID PRN multivitamin 1 tab PO DAILY phenytoin sodium extended 300 mg (3 x 100 mg) PO BID tizanidine 4 mg PO Q8H PRN triamcinolone acetonide 0.5% 1 appl topical TID warfarin 5 mg See Protocol PO DAILY Nursing Note Amb to [facility] feeling ok, has started visits to the wound care clinic for small wound on my leg Medications and supplements reviewed No other changes in health, diet, medications, or supplements Denies any unusual signs and symptoms of bruising, bleeding Denies any new Chest pain, SOB, or clotting INR: 2.4 now in therapeutic range, pt then sts she took an extra 1/2 pill this week because my leg felt funny discussion with pt regarding dosing self and review of previous week extra dose for below range INR, labile INRs and self dosing concerns sts she will just take her regular dosing. Nutritional guidance given: balance greens and reds in diet Dose: continue usual dosing; 5mg x 3 days and 2.5mg x 4 days F/U INR: 2 weeks Patient verbalizes understanding of instructions given with accurate read back/ teach back of dosing and to call if any new meds for wound care Anti-Coag Initial Assessment Social Hx Patient Tobacco Use Status: Never used Tobacco alcohol intake: never Alcohol intake frequency: does not drink Coding Level of Care Code Est Patient Level 1 Diagnoses Current use of anticoagulant therapy Z79.01 Time Spent (min) 20 Results AMB INR Fingerstick AMB INR Fingerstick 2.4 Last Edit by Clover Garrett RN on 01/01/23 13:28 interface failure Assessment & Plan Assessment & Plan (1) Current use of anticoagulant therapy: Code(s): Z79.01 - senior living (current) use of 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
[2023-01-01 13:36] LABS: Prothrombin Time Whole Bld POC 28.5 sec (11.1-13.5); ~PT, ~INR - Anti Coag Clinic 2.4 (0.9-1.1)
== END 2023-01-01 13:50 | disposition home or self-care (01) ==
LOC: HO.ACS 13:09
PROVIDERS: PCP Internal Medicine; Visit Provider Internal Medicine
DX: Z79.01 Long term (current) use of anticoagulants (principal)

== ENCOUNTER → 2023-01-01 13:09 | Outpatient (BNVA) | payer MEDICARE, SELFPAY | PROVIDERS: PCP Internal Medicine; Visit Provider Internal Medicine | DX: I82.409 Acute embolism and thrombosis of unspecified deep veins of unspecified lower extremity (principal); Z79.01 Long term (current) use of anticoagulants; Z51.81 Encounter for therapeutic drug level monitoring | CPT/HCPCS: 85610; 99211 ==

== ENCOUNTER 2023-01-14 09:47 | Outpatient (AMB) | payer MEDICARE, SELFPAY ==
[2023-01-14 09:55] VITALS: BP 136/70; PULSE 76; O2SAT 99
--- NOTE | 2023-01-14 09:55 | MHC.PC.OV ---
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 per policy Accompanied by: Self / Same As Patient Allergies shrimp [SHRIMP] Allergy (Mild, Verified 01/14/23 09:56) HIVES No Known Drug Allergies Allergy (Unknown, Verified 01/14/23 09:56) Unknown Medication List - Last Reconciled 01/14/23 by Jerry Spain MD amlodipine 5 mg PO DAILY ammonium lactate 12% 1 appl topical BID atorvastatin 40 mg PO DAILY blood sugar diagnostic (Blood Glucose Test strips) test blood sugar twice a day blood-glucose meter TEST 2 TIMES DAILY blood-glucose meter (Accu-Chek Guide Glucose Meter) As directed cetirizine 10 mg PO DAILY PRN cyanocobalamin (vitamin B-12) 1,000 mcg PO DAILY docusate sodium 100 mg PO BID esomeprazole magnesium (Nexium) 20 mg PO DAILY furosemide 20 mg PO DAILY glipizide 5 mg PO DAILY lancing device ACCU-CHECK DARLINE DEVICE lancing device (Adjustable Lancing Device) As directed lisinopril 40 mg PO DAILY lorazepam 0.5 mg PO TID PRN multivitamin 1 tab PO DAILY phenytoin sodium extended 300 mg (3 x 100 mg) PO BID tizanidine 4 mg PO Q8H PRN triamcinolone acetonide 0.5% 1 appl topical TID warfarin 5 mg See Protocol PO DAILY Tobacco use date assessed: 11/07/22 Fall risk assessment: 2 + Falls in past year Last assessed Fall Risk: 01/14/23 Dental Screening Dental Screen Date: 01/14/23 Did you have a dental visit in the last 12 months?: Yes Did you have a dental problem in the last 6 months where you did not have access to dental care?: No Was dental information given to patient?: Patient has dentist HPI discuss medical issues HPI Details HTN hyperlipidemia and DM; stable on rx; compliant [facility] Medical History DVT (deep venous thrombosis) Hyperlipidemia Hypertension Diabetes mellitus with coincident hypertension Surgical History History of lumpectomy of right breast History of appendectomy History of cholecystectomy Family History Father Asthma Mother Diabetes Hypertension Colon cancer Other Substance use disorder Social History Housing: House Alcohol intake: never Patient Tobacco Use Status: Never used Tobacco e-Cigarette/Vaping Use: Never Used Second Hand Smoke Exposure: No Advance Directives Date on File: 02/08/20 service: No Current occupational status: employed Cognitive needs: No Hearing needs: No Vision needs: No Questionnaire PHQ-9 Over the last 2 weeks, how often have you been bothered by any of the following problems? Depression Screening Interpretation: Negative Source: Developed by Drs. Tee Esqueda, Cami Betts, Zac Arellano and colleagues, with an educational naz from [employer]. Thrive Questionnaire Date Thrive assessed: 04/29/22 AUDIT C Alcohol Use Questionnaire (AUDIT-C) 1. How often do you have a drink containing alcohol?: Never Total Score: 0 Score Reviewed/Action Taken: Yes JOEL-7 AMB Questionnaire JOEL-7 Date JOEL - 7 assessed: 07/30/22 Source: Developed by Drs. Tee Esqueda, Cami Betts, Zac Arellano and colleagues, with an educational naz from [employer]. Review of Systems Const Denies chills, Denies headache(s) and Denies weight loss ENT Denies headache(s) Card Denies chest pain, Denies syncope, Denies irregular heart rhythm and Denies dyspnea Resp Denies chest congestion, Denies cough and Denies dyspnea GI Denies abdominal pain, Denies change in stool character, Denies nausea and Denies vomiting Musc Denies deformity and Denies joint swelling Neuro Denies syncope and Denies headache(s) Physical exam (Primary Care) Vital Signs: Last Vital Signs Pulse 76 01/14/23 09:55 BP 136/70 01/14/23 09:55 Pulse Ox 99 01/14/23 09:55 Oxygen Delivery Method Room Air 01/14/23 09:55 Tobacco/Smoking Status: Tobacco use Status Tobacco use date assessed 11/07/22 01/14/23 09:56 Patient Tobacco Use Status Never used Tobacco 01/14/23 09:56 e-Cigarette/Vaping Use Never Used 01/14/23 09:56 Depression Screening Interpretation: Negative Thrive Assessment: Date of Thrive Assessment Date Thrive assessed 04/29/22 01/14/23 09:56 Const General: cooperative, comfortable, no acute distress and alert Neck Neck: Yes no lymphadenopathy Thyroid: Thyroid normal Resp Effort & Inspection: normal respiratory effort Auscultation: clear to auscultation bilaterally Percussion: percussion normal Cardio Jugular venous distension: no JVD Palpation: normal PMI Rate: regular rate Rhythm: regular rhythm Heart sounds: S1 normal heart sound present and S2 normal heart sound present GI Inspection: Yes normal to inspection Palpation (GI): No hepatosplenomegaly present Skin General skin exam: no rashes or lesions noted Extrem General: Yes no clubbing, cyanosis or edema Assessment and Plan Assessment & Plan (1) Diabetes mellitus with coincident hypertension: Code(s): E11.9 - Type 2 diabetes mellitus without complications; I10 - Essential (primary) hypertension Plan: stable; same rx (2) Hyperlipidemia: Code(s): E78.5 - Hyperlipidemia, unspecified Plan: stable; same rx (3) Hypertension: Code(s): I10 - Essential (primary) hypertension Plan: stable; same rx; do labs Orders: Orders Lipid Panel Today E78.5 - Hyperlipidemia, unspecified Comprehensive [place]. Panel Fast Today N28.9 - Disorder of kidney and ureter, unspecified AMB Hemoglobin A1c Today E11.9 - Type 2 diabetes mellitus without complications, I10 - Essential (primary) hypertension Thyroid Stimulating Hormone Today E03.9 - Hypothyroidism, unspecified Complete Blood Count Auto Diff Today D64.9 - Anemia, unspecified Hemoglobin A1c Today R73.9 - Hyperglycemia, unspecified Coding Level of Care Code Est Pt Level 4 (81511) Diagnoses Diabetes mellitus with coincident hypertension E11.9; I10 Hyperlipidemia E78.5 Hypertension I10
== END 2023-01-14 10:25 | disposition home or self-care (01) ==
PROVIDERS: PCP Internal Medicine; Visit Provider Internal Medicine
DX: E11.9 Type 2 diabetes mellitus without complications (principal); I10 Essential (primary) hypertension; E78.5 Hyperlipidemia, unspecified
CPT/HCPCS: 83036; 99214

== ENCOUNTER 2023-01-25 21:22 | Inpatient (IN) | payer MEDICARE, SELFPAY ==
--- NOTE | ~2023-01-25 | XR_ITS ---
EXAMINATION: XR CHEST CLINICAL INFORMATION: Right chest/abdominal pain. Fever. Rule out pneumonia. COMPARISON: 06/06/2022 TECHNIQUE: Frontal view of the chest was obtained. FINDINGS: Mild atelectasis in the lung bases. No consolidation, pneumothorax, or pleural effusion. Cardiac and mediastinal contours are within normal limits for technique. Pulmonary vasculature is normal. No acute osseous findings. Degenerative spondylosis is present in the thoracic spine. XR/XR chest 1V IMPRESSION: Mild bibasilar atelectasis. No acute pulmonary findings.
--- NOTE | ~2023-01-25 | MR_ITS ---
EXAMINATION: MR ABDOMEN WITHOUT CONTRAST CLINICAL INFORMATION: Dilated bile ducts. Elevated LFT. Sepsis. COMPARISON: CT scan abdomen and pelvis January 25, 2023 TECHNIQUE: MRCP abdomen is performed without gadolinium contrast. FINDINGS: LUNG BASES: The visualized lung bases are unremarkable. LIVER, GALLBLADDER, AND BILIARY TREE: Several scattered hepatic cysts in the right lobe of liver. Liver is mildly enlarged measuring 22 cm superior inferior. There is mild intrahepatic bile duct dilatation. Extrahepatic CBD dilated to a diameter of 1.3 cm. This is chronic unchanged since prior studies consistent with prior biliary disease. No filling defects in the bile ducts, no evidence of choledocholithiasis. PANCREAS: Pancreas is atrophic. No inflammation or mass. SPLEEN: Unremarkable. ADRENAL GLANDS: Unremarkable. KIDNEYS AND URETERS: The kidneys are normal in size and shape. No hydronephrosis. No perinephric stranding. Small cortical cyst lower pole right kidney. No follow-up imaging is recommended for simple renal cyst. GASTROINTESTINAL TRACT: Redemonstration of the diverticulum at the second portion of the duodenum. No acute changes of the bowel. ABDOMINAL WALL: No significant hernia is appreciated. LYMPH NODES: No lymphadenopathy. VASCULAR: Unremarkable. OSSEOUS STRUCTURES: Marrow signal normal. Degenerative spondylosis spine. MR/MR MRCP IMPRESSION: Mild intrahepatic and extrahepatic bile duct dilatation. This is consistent with prior biliary disease. This is chronic stable since prior studies. No evidence of choledocholithiasis.
--- NOTE | ~2023-01-25 | CT_ITS ---
EXAMINATION: CT ABDOMEN AND PELVIS WITH CONTRAST CLINICAL INFORMATION: Right-sided abdominal pain, diarrhea, rule out diverticulitis COMPARISON: 12/13/2021 TECHNIQUE: Multidetector volumetric images were obtained from the superior aspect of the liver through the pubic symphysis following administration 85 mL of Omnipaque 350 intravenous contrast. Sagittal and coronal reformatted images were obtained on the technologist's workstation. Oral contrast: No This CT examination was performed using dose optimization techniques as appropriate, variously including the following: *Automated exposure control *Adjustment of mA and/or kV according to patient size (this includes techniques or standardized protocols for targeted exams where dose is matched to indication/reason for exam; i.e. extremities or head) *Use of iterative reconstruction technique DLP: 936 mGy-cm FINDINGS: LUNG BASES: Grossly well-aerated, with limited evaluation due to motion artifact. Coronary calcification is noted. LIVER, GALLBLADDER, AND BILIARY TREE: Liver is suboptimally assessed due to motion artifact. There is intrahepatic and extrahepatic biliary ductal prominence which may be physiologic in the setting of prior cholecystectomy. There are ill-defined foci of mild hypodensity in the lateral right hepatic lobe including a subtle 0.9 cm focus on image 20/98 and a lower attenuation approximately 1 cm focus on image 24/98. PANCREAS: Stranding is present in the vicinity of the pancreatic head and adjacent duodenum. SPLEEN: Unremarkable. ADRENAL GLANDS: Unremarkable. KIDNEYS AND URETERS: Bilateral nephrograms are symmetric. No hydronephrosis or obstructing calculus identified. Small hypodensity in the right kidney statistically favors a cyst. BLADDER: Distended without wall thickening. GASTROINTESTINAL TRACT: Small hiatal hernia. Stranding is present adjacent to the duodenum/pancreatic head. No evidence of bowel obstruction. Colonic diverticulosis is noted. No free air is seen. ABDOMINAL WALL: No significant hernia is appreciated. LYMPH NODES: Normal. VASCULAR: Scattered atherosclerotic calcifications. PELVIC VISCERA: Lobulated contour of the uterus is most consistent with underlying fibroids. OSSEOUS STRUCTURES: Multilevel degenerative changes in the spine. CT/CT abdomen pelvis w IV con IMPRESSION: 1. Stranding in the vicinity of the pancreatic head and adjacent duodenum, which could be secondary to pancreatitis or duodenitis. Correlation with laboratory values is recommended. 2. Intrahepatic and extrahepatic biliary ductal prominence, which may be physiologic in the setting of prior cholecystectomy. 3. Ill-defined foci of mild hypoattenuation in the lateral right hepatic lobe measuring up to 1 cm, which would be better assessed with nonemergent dynamic liver MRI. 4. Small hiatal hernia. 5. Colonic diverticulosis. No evidence of diverticulitis.
[2023-01-25 21:27] VITALS: BP 160/88; PULSE 97; O2SAT 97; BMI 40.8
[2023-01-25 21:32] VITALS: BP 143/86; PULSE 100; RESP 17; TEMP 37.7; O2SAT 97
[2023-01-25 21:59] LABS: Basophils Percent Auto 0.1 % (0-2); Eosinophils Percent Auto 0.1 % (0-4); Hematocrit 46.3 % (37.0-47.0); Imm Gran Abs Auto 0.03 X10*3/uL (0.00-0.03); Imm Gran Pct Auto 0.3 % (0.0-0.4); Lymphocytes Absolute Auto 0.8 X10*3/uL (1.2-4.9); Lymphocytes Percent Auto 7.3 % (20-40); MANUAL DIFF FLAG SCAN; Mean Corpuscular HGB Conc 32.4 g/dl (31.0-35.0); Mean Corpuscular Hemoglobin 33.6 pg (27.0-33.0); Mean Corpuscular Volume 103.8 fL (80.0-98.0); Mean Platelet Volume 9.8 fL (9.4-12.3); Monocytes Absolute Auto 0.1 X10*3/uL (0.1-1.2); Monocytes Percent Auto 0.5 % (2-11); Neutrophils Absolute Auto 10.4 x10*3/uL (2.0-8.3); Neutrophils Percent Auto 91.7 % (45-73); Platelet Count 167 X10*3/uL (160-400); Red Blood Count 4.46 X10*6/uL (4.20-5.50); Red Cell Distribution Width 12.8 % (11.0-16.0); SCAN SMEAR FLAG 1; White Blood Count 11.4 X10*3/uL (4.8-10.8)
[2023-01-25 22:10] LABS: INTERNATIONAL NORM RATIO 2.5 (0.9-1.1); Prothrombin Time 30.6 SEC (11.1-13.3)
[2023-01-25 22:13] LABS: Alanine Aminotransferase 161 U/L (0-31); Albumin Level 3.7 g/dL (3.5-5.0); Alkaline Phosphatase 86 U/L (39-117); Anion Gap 20 (12-20); Aspartate Amino Transferase 345 U/L (5-31); Bilirubin Total 1.5 mg/dL (0.0-1.0); Blood Urea Nitrogen 15 mg/dL (9-16); Calcium 9.1 mg/dL (8.4-10.2); Carbon Dioxide 23 mmol/L (22-29); Chloride 104 mmol/L (96-108); Creatinine Clr Calc Pharmacy 57.5; Estimated Glomerular Filt Rate > 60; Glucose Random 214 mg/dL (60-115); Potassium 3.9 mmol/L (3.3-5.1); Sodium 143 mmol/L (135-145); Total Protein 6.8 g/dL (6.5-8.0)
[2023-01-25 22:14] LABS: SLIDE REVIEW VERIFIED
[2023-01-25 22:17] LABS: Lactic Acid 4.5 mmol/L (0.5-2.0)
[2023-01-25] MEDS: ondansetron HCL 4 MG/2 ML VIAL IVPUSH (22:25)
[2023-01-25] MEDS: Morphine Sulfate 4 MG/ML CARTRIDGE IVPUSH ×2 (22:25→22:49)
[2023-01-25] MEDS: 0.9 % Sodium Chloride 1,434 ML 1434 ML IV (22:26)
[2023-01-25] MEDS: Acetaminophen 325 MG TABLET 975 MG PO (22:27)
[2023-01-25 22:37] LABS: Influenza A PCR NEGATIVE (Negative); Influenza B PCR NEGATIVE (Negative); Resp Syncy Virus RNA Qual PCR NEGATIVE (Negative); SARS COV2 PCR INHOUSE NEGATIVE (Negative)
--- NOTE | 2023-01-25 22:45 | ED_ITS ---
HPI - Abdominal Pain General Chief Complaint: Abdominal Pain Stated Complaint: LRQ pain x3hrs Time Seen by Provider: 01/25/23 21:53 Source: patient and family (Brother, Star) Mode of arrival: EMS Limitations: no limitations History of Present Illness HPI narrative: 77-year-old female who presents emergency department for evaluation of sudden onset of right-sided abdominal pain since 15:00 hours. Patient states the pain started [place] Patient points to the right side of her abdomen when asked to localize the pain. She describes the pain is a constant, sharp pain which is 10/10. This is her 1st episode of this type of pain. Patient had associated nausea and vomited 3 times. She also states that she had 2 episodes of black diarrhea with no blood in the diarrhea or emesis. The patient does have a chronic left lower leg wound and states that she was on antibiotics 3 weeks ago. She states that she had a subjective fever and chills. She had did note urinary frequency but had no dysuria or urgency. Review of systems was negative for rhinorrhea, sore throat, cough, chest pain, shortness of breath, dyspnea on exertion, myalgias arthralgias Related Data Home Medications Medication Instructions Recorded Confirmed cyanocobalamin (vitamin B-12) 1,000 mcg PO DAILY 02/03/20 01/14/23 1,000 mcg capsule multivitamin 1 tab PO DAILY 02/03/20 01/14/23 esomeprazole magnesium 20 mg 20 mg PO DAILY 01/08/22 01/14/23 capsule,delayed release (Nexium) Previous Rx's Medication Instructions Recorded lancing device #1 ea 02/10/20 ammonium lactate 12 % topical cream 1 applic topical BID #140 grams 03/08/20 blood-glucose meter #1 ea 09/27/21 lancing device (Adjustable Lancing #1 ea 10/15/21 Device) blood-glucose meter (Accu-Chek #1 ea 11/25/21 Guide Glucose Meter) blood sugar diagnostic (Blood #50 ea 11/26/21 Glucose Test strips) phenytoin sodium extended 100 mg 300 mg (3 x 100 mg) PO BID #360 06/25/22 capsule caps cetirizine 10 mg tablet 10 mg PO DAILY PRN rash #14 tabs 07/26/22 docusate sodium 100 mg capsule 100 mg PO BID #20 caps 08/04/22 warfarin 5 mg tablet 5 mg PO DAILY #90 tabs 08/07/22 tizanidine 4 mg tablet 4 mg PO Q8H PRN muscle spasticity 08/13/22 #60 tabs amlodipine 5 mg tablet 5 mg PO DAILY #90 tabs 10/26/22 atorvastatin 40 mg tablet 40 mg PO DAILY #90 tabs 12/22/22 furosemide 20 mg tablet 20 mg PO DAILY #100 tabs 12/22/22 glipizide 5 mg tablet 5 mg PO DAILY #100 tabs 12/22/22 lisinopril 40 mg tablet 40 mg PO DAILY #90 tabs 12/22/22 triamcinolone acetonide 0.5 % 1 appl topical TID #15 grams 12/22/22 topical cream lorazepam 0.5 mg tablet 0.5 mg PO TID PRN anxiety #90 tabs 12/23/22 Allergies Allergy/AdvReac Type Severity Reaction Status Date / Time shrimp [SHRIMP] Allergy Mild HIVES Verified 01/14/23 09:56 No Known Drug Allergies Allergy Unknown Unknown Verified 01/14/23 09:56 Review of Systems Review of Systems Yes all other systems are reviewed and are negative [facility] Past Medical History [facility] Narrative: Past medical history: Diabetes mellitus, hypertension, asthma, anxiety, UTI, Leiden factor 5 deficiency. Surgical history: Appendectomy, cholecystectomy. Social history: She denies tobacco, alcohol and drug use. Medical History DVT (deep venous thrombosis) Hyperlipidemia Hypertension Diabetes mellitus with coincident hypertension Surgical History History of lumpectomy of right breast History of appendectomy History of cholecystectomy Family History Family History Father Asthma Mother Diabetes Hypertension Colon cancer Other Substance use disorder Social History Social History Housing: House Alcohol intake: never Patient Tobacco Use Status: Never used Tobacco Smoked in Last 30 Days: No e-Cigarette/Vaping Use: Never Used Second Hand Smoke Exposure: No Advance Directives: No Advance Directives Information Provided: No Advance Directives Date on File: 02/08/20 service: No Current occupational status: employed Cognitive needs: No Hearing needs: No Vision needs: No Physical Exam ED Vital Signs: Vital Signs - 24 hr 01/25/23 21:32 01/25/23 22:51 Temperature 100 F 99.0 F Pulse Rate 100 112 H Respiratory Rate 17 23 H Blood Pressure 143/86 H 167/70 H Pulse Oximetry 97 96 Oxygen Delivery Method Room Air Room Air BMI result Body Mass Index 40.8 Vital signs revealed an elevated temperature of 100 degrees F, elevated heart rate of 100, elevated blood pressure of 143/86 Exam: General: Awake, alert , in [id number] distress secondary to abdominal pain Head: Normocephalic, atraumatic EENT: PERRL, Lids normal, sclera normal, conjunctiva normal, nose normal , ears normal, throat without erythema or exudates Neck: Supple, no adenopathy, trachea midline and nontender Lung: breath sounds symmetric, no wheezing, rales or rhonchi Chest: symmetric movement, nontender Heart: regular rate and rhythm, normal S1, S2 no murmurs or rubs Abdomen: soft, moderate right-sided tenderness nondistended, normal bowel sounds, no voluntary or involuntary guarding, no rebound Back: no vertebral tenderness, no CVAT Extremities: no deformities, moves all extremities symmetrically Skin: no rashes, no lesion, normal color and warmth Neuro: Awake, alert, oriented, normal speech, cranial nerves intact, moves all extremities symmetrically Psych: Pleasant, cooperative Medical Decision Making Medical Decision Making MDM Narrative: 77-year-old female who presents emergency department for evaluation of sudden onset of right-sided abdominal pain since 15:00 hours. Patient states the pain started [place]. Her pain is a constant, sharp pain which is 10/10 and associated with nausea and vomited 3 times. She also states that she had 2 episodes of black diarrhea with no blood in the diarrhea or emesis. Patient completed course of antibiotics 3 weeks prior for chronic left lower extremity cellulitis/wound. Vital signs did reveal an elevated temperature of 100 degrees an elevated heart rate of 100. Following evaluation was ordered CBC, CMP, lactic acid, PT/INR, PTT, lipase, urinalysis, C diff, GI panel blood cultures x2 Patient was treated with morphine 4 mg IV x2, Zofran 4 mg IV x1 and 30 cc/milligram normal saline bolus based on ideal body weight (total of 1.434 mL). 0041: Patient's WBC was elevated 11,400, coags were elevated INR 2.5, PTT 32.2-patient is on warfarin for her Leiden factor 5 deficiency.. Glucose elevated 214. AST and ALT are elevated 345 and 161. Total bilirubin is elevated 1.5. Lipase is greater than 300. Lactic acid was elevated 4.5. COVID-19, RSV and influenza were negative. The patient was not able to give me a diarrheal stool sample, am concerned that she may have C diff however given the elevated lipase and LFT abnormalities and concerned that patient has acute pancreatitis. Patient did spike a fever of 104.6 degrees F. I did order Zosyn 4.[address] scan of the abdomen pelvis is pending. Patient will be given ice packs to try to bring down her temperature since she cannot get NSAIDs due to Coumadin therapy and is not due for 2nd dose of Tylenol. 0053: CT scan is concerning for acute pancreatitis possibly secondary to a biliary ductal stone specially given the elevated LFTs. I will discuss admission with the covering hospitalist. 0135: The patient's repeat lactic acid went up from 4.5 to 5.3. The patient has not completed her fluid bolus. The patient has no hypotension with most recent blood pressure and 08/29/1999 of 166/68. I did discuss admission with the covering hospitalist, Dr. Marquez. Differential Diagnosis Differential Diagnoses: The differential diagnosis associated with the presentation includes Differential diagnosis includes was not limited to colitis, C difficile colitis, perforation, pancreatitis Admission/Observation Consideration of admission/observation: Escalation of care including admission/observation considered Consult Healthcare Provider Management of the patient was discussed with: Hospitalist Lab Data See MDM for my interpretation 01/25/23 21:45 01/25/23 21:45 Labs: Lab Results 01/25/23 01/25/23 01/25/23 Range/Units 21:45 21:51 21:52 WBC 11.4 H (4.8-10.8) X10*3/uL RBC 4.46 (4.20-5.50) X10*6/uL Hgb 15.0 (12.0-16.0) g/dl Hct 46.3 (37.0-47.0) % MCV 103.8 H (80.0-98.0) fL MCH 33.6 H (27.0-33.0) pg MCHC 32.4 (31.0-35.0) g/dl RDW 12.8 (11.0-16.0) % Plt Count 167 (160-400) X10*3/uL MPV 9.8 (9.4-12.3) fL Immature Gran % (Auto) 0.3 (0.0-0.4) % Neut % (Auto) 91.7 H (45-73) % Lymph % (Auto) 7.3 L (20-40) % [place] % (Auto) 0.5 L (2-11) % Eos % (Auto) 0.1 (0-4) % Baso % (Auto) 0.1 (0-2) % Lymph # (Auto) 0.8 L (1.2-4.9) X10*3/uL [place] # (Auto) 0.1 (0.1-1.2) X10*3/uL Eos # (Auto) 0.0 (0.0-0.4) X10*3/uL Baso # (Auto) 0.0 (0.0-0.2) X10*3/uL Abs Immat Gran (auto) 0.03 (0.00-0.03) X10*3/uL Absolute Neuts (auto) 10.4 H (2.0-8.3) x10*3/uL Absolute Nucleated RBC 0.000 (0.0-0.012) X10*3/uL Nucleated RBC % (auto) 0.0 (0.0-0.2) /100WBC Smear Tech's Comments VERIFIED PT 30.6 H (11.1-13.3) SEC INR 2.5 H (0.9-1.1) Whole Blood INR Cancelled APTT 37.2 H D (26.0-36.4) SEC Sodium 143 (135-145) mmol/L Potassium 3.9 (3.3-5.1) mmol/L Chloride 104 (96-108) mmol/L Carbon Dioxide 23 (22-29) mmol/L Anion Gap 20 (12-20) BUN 15 (9-16) mg/dL Creatinine 0.89 (0.5-1.4) mg/dL Estim Creat Clear Calc 57.5 Estimated GFR > 60 Random Glucose 214 H (60-115) mg/dL Lactic Acid 4.5 H* (0.5-2.0) mmol/L Calcium 9.1 (8.4-10.2) mg/dL Total Bilirubin 1.5 H (0.0-1.0) mg/dL AST 345 H (5-31) U/L ALT 161 H (0-31) U/L Alkaline Phosphatase 86 (39-117) U/L Total Protein 6.8 (6.5-8.0) g/dL Albumin 3.7 (3.5-5.0) g/dL Lipase > 300 H (8-78) U/L Influenza Type A (PCR) NEGATIVE (Negative) Influenza Type B (PCR) NEGATIVE (Negative) RSV RNA Qual (PCR) NEGATIVE (Negative) SARS-CoV-2 RNA (RT-PCR) NEGATIVE (Negative) Independent Interpretation I performed an independent interpretation of an: Plain X-Ray Interpretation: My interpretation of the patient's one-view Chest x-ray is no acute disease Radiology Impression Discussion of test interpretation with radiology: I have reviewed the radiologist's reading. Radiologist Impression: CT abdomen pelvis w IV con IMPRESSION: 1. Stranding in the vicinity of the pancreatic head and adjacent duodenum, which could be secondary to pancreatitis or duodenitis. Correlation with laboratory values is recommended. 2. Intrahepatic and extrahepatic biliary ductal prominence, which may be physiologic in the setting of prior cholecystectomy. 3. Ill-defined foci of mild hypoattenuation in the lateral right hepatic lobe measuring up to 1 cm, which would be better assessed with nonemergent dynamic liver MRI. 4. Small hiatal hernia. 5. Colonic diverticulosis. No evidence of diverticulitis. XR chest 1V IMPRESSION: Mild bibasilar atelectasis. No acute pulmonary findings. Dictated By: n Medications Administered Discontinued Medications Generic Name Dose Route Start Last Admin Trade Name Freq PRN Reason Stop Dose Admin Acetaminophen 975 mg 01/25/23 22:17 01/25/23 22:27 Acetaminophen 325 Mg Tablet PO 01/25/23 22:18 975 mg ONCE STA Administration Sodium Chloride 1,434 mls @ 1,434 mls/hr 01/25/23 22:17 01/25/23 22:26 Ns IV 01/25/23 23:16 1,434 mls/hr .Q1H STA Administration Iohexol 85 ml 01/25/23 23:54 01/25/23 23:54 Iohexol 350 Mg/Ml 100 Ml Infus..Btl IV 01/25/23 23:55 85 ml ONCE ONE Administration Ketorolac Tromethamine 15 mg 01/25/23 22:17 01/25/23 22:27 Ketorolac Tromethamine 15 Mg/Ml Vial IVPUSH 01/25/23 22:18 Not Given ONCE STA Morphine Sulfate 4 mg 01/25/23 22:17 01/25/23 22:25 Morphine Sulfate 4 Mg/Ml Cartridge IVPUSH 01/25/23 22:18 4 mg ONCE STA Administration Protocol Morphine Sulfate 4 mg 01/25/23 22:45 01/25/23 22:49 Morphine Sulfate 4 Mg/Ml Cartridge IVPUSH 01/25/23 22:46 4 mg ONCE STA Administration Protocol Ondansetron HCl 4 mg 01/25/23 22:17 01/25/23 22:25 Ondansetron Hcl 4 Mg/2 Ml Vial IVPUSH 01/25/23 22:18 4 mg ONCE ONE Administration Critical Care Time Critical Care Time Critical Care Time: Yes Total Critical Care Time: 45 Attestation: Critical Care: The patient was critically ill with a high probability of imminent or life threatening deterioration. I spent greater than 30 minutes of discontinuous time evaluating the patient,delivering critical care at the bedside, discussing and evaluating pertinent data with consultants. Critical care time does not include time spent performing separately billable procedures or teaching. Total time spent performing critical care was 45 minutes. Discharge Plan Discharge Prescriptions: No Action (DME) lancing device Misc See Rx Instructions .ROUTE .MEDSUPPLY Qty: 1 8RF Rx Instructions: ACCU-CHECK DARLINE DEVICE ammonium lactate 12 % cream 1 applic topical BID Qty: 140 6RF (DME) lancing device [Adjustable Lancing Device] Misc See Rx Instructions .Route Qty: 1 0RF Rx Instructions: As directed (DME) blood-glucose meter [Accu-Chek Guide Glucose Meter] Misc See Rx Instructions .Route Qty: 1 0RF Rx Instructions: As directed (DME) Blood Glucose Test Strip See Rx Instructions .Route Qty: 50 8RF Rx Instructions: test blood sugar twice a day phenytoin sodium extended 100 mg capsule 300 mg PO BID Qty: 360 8RF warfarin 5 mg tablet 5 mg PO DAILY Qty: 90 3RF Hold Instructions: Resume on 05/22/22. resume warfarin on 05/22/22 Protocol: Dose Management Condition: Thursday (Week One) Dose/Route: 2.5 mg Instruction: 0.5 x 5 mg tablets Condition: Thursday Dose/Route: 5 mg Instruction: 1 x 5 mg tablet Condition: Thursday Dose/Route: 2.5 mg Instruction: 0.5 x 5 mg tablets Condition: Thursday Dose/Route: 5 mg Instruction: 1 x 5 mg tablet Condition: Dose/Route: 2.5 mg Instruction: 0.5 x 5 mg tablets Condition: Thursday Dose/Route: 5 mg Instruction: 1 x 5 mg tablet Condition: Thursday Dose/Route: 2.5 mg Instruction: 0.5 x 5 mg tablets Condition: Thursday (Week Two) Dose/Route: 2.5 mg Instruction: 0.5 x 5 mg tablets Condition: Thursday Dose/Route: 5 mg Instruction: 1 x 5 mg tablet Condition: Thursday Dose/Route: 2.5 mg Instruction: 0.5 x 5 mg tablets Condition: Thursday Dose/Route: 5 mg Instruction: 1 x 5 mg tablet Condition: Dose/Route: 2.5 mg Instruction: 0.5 x 5 mg tablets Condition: Thursday Dose/Route: 5 mg Instruction: 1 x 5 mg tablet Condition: Thursday Dose/Route: 2.5 mg Instruction: 0.5 x 5 mg tablets Protocol Text: Adjustment Start Date: 01/01/23 INR Value: 2.4 INR Date: 01/01/23 Recheck Date: 01/15/23 Additional Instructions: INR is in range continue usual dosing, call us if any new medications or if you are changing warfarin dosing balance greens and reds in diet amlodipine 5 mg tablet 5 mg PO DAILY Qty: 90 8RF atorvastatin 40 mg tablet 40 mg PO DAILY Qty: 90 8RF triamcinolone acetonide 0.5 % cream 1 appl topical TID Qty: 15 3RF lisinopril 40 mg tablet 40 mg PO DAILY Qty: 90 8RF furosemide 20 mg tablet 20 mg PO DAILY Qty: 100 2RF glipizide 5 mg tablet 5 mg PO DAILY Qty: 100 2RF lorazepam 0.5 mg tablet 0.5 mg PO TID PRN (Reason: anxiety) Qty: 90 3RF cetirizine 10 mg tablet 10 mg PO DAILY PRN (Reason: rash) Qty: 14 0RF docusate sodium 100 mg capsule 100 mg PO BID Qty: 20 0RF multivitamin Tablet 1 tab PO DAILY cyanocobalamin (vitamin B-12) 1,000 mcg capsule 1,000 mcg PO DAILY tizanidine 4 mg tablet 4 mg PO Q8H PRN (Reason: muscle spasticity) Qty: 60 3RF (DME) blood-glucose meter Misc See Rx Instructions .ROUTE .MEDSUPPLY Qty: 1 0RF Rx Instructions: TEST 2 TIMES DAILY esomeprazole magnesium [Nexium] 20 mg capsule,delayed release(DR/EC) 20 mg PO DAILY
[2023-01-25 22:51] VITALS: BP 167/70; PULSE 112; RESP 23; TEMP 37.2; O2SAT 96
[2023-01-25 23:03] LABS: Partial Thromboplastin Time 37.2 SEC (26.0-36.4)
[2023-01-25 23:08] LABS: Lipase > 300 U/L (8-78)
[2023-01-25 23:49] LABS: Reflex Lactate? Lactic Acid Added
[2023-01-25] MEDS: iohexoL 350 MG/ML 100 ML INFUS..BTL 85 ML IV (23:54)
[2023-01-26] VITALS (16 sets, daily range): BP systolic 76–166; BP diastolic 39–75; PULSE 80–112; RESP 16–26; TEMP 36.2–40.4; O2SAT 88–98
--- NOTE | 2023-01-26 00:57 | MHC.EDTECH ---
Hourly rounds and vitals completed, patient has a rectal temp of 104.7 RN Claudia and were made aware, ICE applied to back of neck. Second set of blood cultures and repeat Lactic were obtained and sent to lab. Patient was incont. of a small amount of soft stool, patient was cleaned and repositioned, there was not enough for a stool sample at this time and provider was made aware. This tech placed a continuos rectal probe to monitor patients temp. Family is at bedside and call rohan rodriguez
[2023-01-26] MEDS: Piperacillin Sodium/Tazobactam 4.5 GM in 0.9 % Sodium Chloride 100 ML IV (00:58)
[2023-01-26 01:22] LABS: ~Lactic Acid-LAB USE ONLY 5.3 mmol/L (0.5-2.0)
[2023-01-26 01:43] LABS: Appearance Urine Clear; Color Urine Yellow; Glucose Urine UA Negative (Negative); Leukocyte Esterase Urine Negative (Negative); Nitrite Urine Negative (Negative); PH 5.5 (5.0-9.0); UMIC TRIGGER UACC YES; Urine Blood Small (1+) (Negative); Urine Ketones Negative (Negative); Urine Protein Negative (Neg-Trace)
--- NOTE | 2023-01-26 01:44 | MHC.EDTECH ---
Hourly rounds and vitals completed,Rectal temp is at 104.0 RN aware. Patient was repositioned to comfort.
--- NOTE | 2023-01-26 01:45 | PC.NURSE ---
pt has temp sensing rectal probe placed
[2023-01-26 01:48] LABS: Bacteria Urine None Seen (None Seen); Hyaline Casts Urine 0-2 /LPF (0-2); Squamous Epithelial Cell Urine 0-2 /HPF (0-2); WBC Urine 0-5 /HPF (0-5)
[2023-01-26] MEDS: Acetaminophen 325 MG TABLET 975 MG PO (01:51)
[2023-01-26 01:57] LABS: Triglycerides 168 mg/dL (<150)
--- NOTE | 2023-01-26 02:10 | MHC.EDTECH ---
Belonging list completed, 900cc of yellow urine emptied from Ritchie.
[2023-01-26 02:31] LABS: Lactic Acid 5.5 mmol/L (0.5-2.0)
--- NOTE | 2023-01-26 02:35 | PC.NURSE ---
Lab reported critical lactic acid 5.5. Dr. Marquez informed.
[2023-01-26] MEDS: cefTRIAXone sodium 1 GM in 0.9 % Sodium Chloride 50 ML IV (02:37)
[2023-01-26] MEDS: Lactated Ringers 1,000 ML 200 ML IVCONT ×5 (02:38→19:45)
[2023-01-26 02:55] LABS: Reflex Lactate? 2 Y
[2023-01-26] MEDS: metroNIDAZOLE/NS 500 MG/100 ML PIGGYBACK 100 MG IV ×3 (03:26→19:34)
[2023-01-26 04:14] LABS: Reflex Lactate? Lactic Acid Added
[2023-01-26 04:31] LABS: ~Lactic Acid-LAB USE ONLY 5.5 mmol/L (0.5-2.0)
--- NOTE | 2023-01-26 04:34 | PC.NURSE ---
Critical Lactic 5.[address] Marquez.
--- NOTE | 2023-01-26 05:07 | MHC.EDTECH ---
Hourly rounds and vitals completed,patients blood pressure is low at 97/47 RN Lashaun was made aware. Patient was repositioned and linen was changed. Call madrigal within reach
--- NOTE | 2023-01-26 05:17 | PC.NURSE ---
notified provider that pt BP went down to 97/47.
--- NOTE | 2023-01-26 06:12 | MHC.EDTECH ---
Hourly rounds and vitals completed,patients BP is low at 84/41,repeated and it went up to 98/46 RN Lashaun was made aware. Ritchie emptied with 300cc of urine output.
--- NOTE | 2023-01-26 06:22 | PHA.MEDREC ---
Pharmacy Consult ? Medication Reconciliation Pharmacy has reviewed the medication reconciliation.
--- NOTE | 2023-01-26 06:50 | P.HPHOSP_ITS ---
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 Patient is here with her brother. Patient has nausea, 1 episode of vomiting, some diarrhea, no chest pain, no palpitations, no urinary symptoms and no lower extremity edema. Patient was retaining on arrival, and was found to have over 1000 cc of urine retained On arrival to the ED patient found to have a fever of 104.7, heart rate of 112, respiratory rate of 26, blood pressure of 166/60, satting 88% on room air Labs are significant for WBC count of 11.4, INR of 2.5, lactic acid of 5.5, total bili of 1.5, AST of 345, ALT of 161, triglycerides of 160, lipase over 300, Abdominal pelvic CT shows stranding in the vicinity of pancreatic head and adjacent duodenum, secondary to pancreatitis versus duodenitis, that the fine foci of mild hypoattenuation in the lateral right hepatic lobe Patient started on antibiotics and will be admitted for further management Review of Systems 2 Review of Systems: Yes all other systems are reviewed and are negative [facility] Medical History (Updated 01/26/23 @ 06:56 by Ilsa Marquez MD) Factor V Leiden DVT (deep venous thrombosis) Hyperlipidemia Hypertension Diabetes mellitus with coincident hypertension Family History Father Asthma Mother Diabetes Hypertension Colon cancer Other Substance use disorder Surgical History History of lumpectomy of right breast History of appendectomy History of cholecystectomy Social History Housing: House Alcohol intake: never Patient Tobacco Use Status: Never used Tobacco Smoked in Last 30 Days: No e-Cigarette/Vaping Use: Never Used Second Hand Smoke Exposure: No Advance Directives: No Advance Directives Information Provided: No Advance Directives Date on File: 02/08/20 Nutrition Risks: No Nutritional Risk service: No Current occupational status: employed Cognitive needs: No Hearing needs: No Vision needs: No Meds Allergies Allergy/AdvReac Type Severity Reaction Status Date / Time shrimp [SHRIMP] Allergy Mild HIVES Verified 01/14/23 09:56 No Known Drug Allergies Allergy Unknown Unknown Verified 01/14/23 09:56 Active Medications: Current Medications Acetaminophen (Acetaminophen 325 Mg Tablet) 650 mg PO Q8H PRN PRN Reason: Pain, Mild (Pain Scale 1-3) Docusate Sodium (Docusate Sodium 100 Mg Capsule) 100 mg PO DAILY PRN PRN Reason: Constipation Lactated Ringer's (Lr) 1,000 mls @ 200 mls/hr IVCONT .Q5H [facility] Last Admin: 01/26/23 02:38 Dose: 200 mls/hr Ceftriaxone Sodium 1 gm/ (Sodium Chloride) 50 mls @ 100 mls/hr IV Q24H [facility] Last Infusion: 01/26/23 03:29 Dose: Infused Metronidazole (Flagyl) 500 mg in 100 mls @ 100 mls/hr IV Q8H [facility] Last Infusion: 01/26/23 04:33 Dose: Infused Ondansetron HCl (Ondansetron Hcl 4 Mg/2 Ml Vial) 4 mg IVPUSH Q8H PRN PRN Reason: Nausea and Vomiting Sodium Chloride (0.9 % Sodium Chloride Flush 3 Ml Syringe) 3 ml IVFLUSH QSHIFT [facility] Home Medications Medication Instructions Recorded Confirmed Last Taken Type cyanocobalamin (vitamin B-12) 1,000 mcg PO DAILY 02/03/20 01/26/23 Unknown History 1,000 mcg capsule multivitamin 1 tab PO DAILY 02/03/20 01/26/23 Unknown History esomeprazole magnesium 20 mg 20 mg PO DAILY 01/08/22 01/26/23 05/20/22 History capsule,delayed release (Nexium) 20 mg Physical Exam 2 Vital Signs and Narrative: Vital Signs: Last Vital Signs Temp 99.9 F 01/26/23 06:11 Pulse 89 01/26/23 06:11 Resp 16 01/26/23 06:11 BP 98/46 L 01/26/23 06:11 Pulse Ox 97 01/26/23 06:11 O2 Del Method Nasal Cannula 01/26/23 06:11 O2 Flow Rate 2 01/26/23 06:11 BMI result Body Mass Index 40.8 Const: General: cooperative and no acute distress O rientation/consciousness: patient oriented x3 Resp: Effort & Inspection: normal respiratory effort Auscultation: clear to auscultation bilaterally Cardio: Rate: regular rate Rhythm: regular rhythm GI: Other: Abdomen is tender, no rebound or guarding Palpation (GI): Soft to palpation Auscultation: normal bowel sounds Skin: General skin exam: no rashes or lesions noted Neuro: General: patient oriented x3 Cognition (Neuro): normal cognition Extrem: General: Yes normal to inspection and Yes no pedal edema Results Labs 01/25/23 21:45 01/25/23 21:45 Labs: Laboratory Results - last 24 hr 01/25/23 01/25/23 01/25/23 21:45 21:51 21:52 MCV 103.8 H MCH 33.6 H MCHC 32.4 RDW 12.8 Plt Count 167 MPV 9.8 Immature Gran % (Auto) 0.3 Neut % (Auto) 91.7 H Lymph % (Auto) 7.3 L Power % (Auto) 0.5 L Eos % (Auto) 0.1 Baso % (Auto) 0.1 Lymph # (Auto) 0.8 L Power # (Auto) 0.1 Eos # (Auto) 0.0 Baso # (Auto) 0.0 Abs Immat Gran (auto) 0.03 Absolute Neuts (auto) 10.4 H Absolute Nucleated RBC 0.000 Nucleated RBC % (auto) 0.0 Smear Tech's Comments VERIFIED PT 30.6 H INR 2.5 H Whole Blood INR Cancelled APTT 37.2 H D Anion Gap 20 Estim Creat Clear Calc 57.5 Estimated GFR > 60 Random Glucose 214 H Lactic Acid 4.5 H* Lactic Acid F/U @ 2Hr Lactic Acid F/U @ 4Hr Calcium 9.1 Total Bilirubin 1.5 H AST 345 H ALT 161 H Alkaline Phosphatase 86 Total Protein 6.8 Albumin 3.7 Triglycerides 168 H Lipase > 300 H Urine Color Urine Appearance Urine pH Ur Specific [place] Urine Protein Urine Glucose (UA) Urine Ketones Urine Blood Urine Nitrite Ur Leukocyte Esterase Urine RBC Urine WBC Ur Squamous Epith Cells Urine Bacteria Hyaline Casts Influenza Type A (PCR) NEGATIVE Influenza Type B (PCR) NEGATIVE RSV RNA Qual (PCR) NEGATIVE SARS-CoV-2 RNA (RT-PCR) NEGATIVE 01/26/23 01/26/23 01/26/23 00:51 01:36 02:09 MCV MCH MCHC RDW Plt Count MPV Immature Gran % (Auto) Neut % (Auto) Lymph % (Auto) Power % (Auto) Eos % (Auto) Baso % (Auto) Lymph # (Auto) Power # (Auto) Eos # (Auto) Baso # (Auto) Abs Immat Gran (auto) Absolute Neuts (auto) Absolute Nucleated RBC Nucleated RBC % (auto) Smear Tech's Comments PT INR Whole Blood INR APTT Anion Gap Estim Creat Clear Calc Estimated GFR Random Glucose Lactic Acid 5.5 H* Lactic Acid F/U @ 2Hr 5.3 H* Lactic Acid F/U @ 4Hr Calcium Total Bilirubin AST ALT Alkaline Phosphatase Total Protein Albumin Triglycerides Lipase Urine Color Yellow Urine Appearance Clear Urine pH 5.5 Ur Specific [place] 1.020 Urine Protein Negative Urine Glucose (UA) Negative Urine Ketones Negative Urine Blood Small (1+) H Urine Nitrite Negative Ur Leukocyte Esterase Negative Urine RBC 6-10 H Urine WBC 0-5 Ur Squamous Epith Cells 0-2 Urine Bacteria None Seen Hyaline Casts 0-2 Influenza Type A (PCR) Influenza Type B (PCR) RSV RNA Qual (PCR) SARS-CoV-2 RNA (RT-PCR) 01/26/23 03:44 MCV MCH MCHC RDW Plt Count MPV Immature Gran % (Auto) Neut % (Auto) Lymph % (Auto) Power % (Auto) Eos % (Auto) Baso % (Auto) Lymph # (Auto) Power # (Auto) Eos # (Auto) Baso # (Auto) Abs Immat Gran (auto) Absolute Neuts (auto) Absolute Nucleated RBC Nucleated RBC % (auto) Smear Tech's Comments PT INR Whole Blood INR APTT Anion Gap Estim Creat Clear Calc Estimated GFR Random Glucose Lactic Acid Lactic Acid F/U @ 2Hr Lactic Acid F/U @ 4Hr 5.5 H* Calcium Total Bilirubin AST ALT Alkaline Phosphatase Total Protein Albumin Triglycerides Lipase Urine Color Urine Appearance Urine pH Ur Specific [place] Urine Protein Urine Glucose (UA) Urine Ketones Urine Blood Urine Nitrite Ur Leukocyte Esterase Urine RBC Urine WBC Ur Squamous Epith Cells Urine Bacteria Hyaline Casts Influenza Type A (PCR) Influenza Type B (PCR) RSV RNA Qual (PCR) SARS-CoV-2 RNA (RT-PCR) Imaging Radiologist's Impressions: Impressions Chest X-Ray 01/25/23 22:49 IMPRESSION: Mild bibasilar atelectasis. No acute pulmonary findings. Abdomen/Pelvis CT 01/25/23 23:57 IMPRESSION: 1. Stranding in the vicinity of the pancreatic head and adjacent duodenum, which could be secondary to pancreatitis or duodenitis. Correlation with laboratory values is recommended. 2. Intrahepatic and extrahepatic biliary ductal prominence, which may be physiologic in the setting of prior cholecystectomy. 3. Ill-defined foci of mild hypoattenuation in the lateral right hepatic lobe measuring up to 1 cm, which would be better assessed with nonemergent dynamic liver MRI. 4. Small hiatal hernia. 5. Colonic diverticulosis. No evidence of diverticulitis. Assessment and Plan (1) Acute pancreatitis: Qualifiers: Pancreatitis type: unspecified pancreatitis type Acute pancreatitis complication: unspecified Qualified Code(s): K85.90 - Acute pancreatitis without necrosis or infection, unspecified Status: Acute (2) Acute cholangitis: Status: Acute Plan 77-year-old female with past medical history of DVT, factor 5 bleeding mutation, on anticoagulation, diabetes, HTN, HLD comes into the hospital # sepsis - secondary to acute cholangitis - febrile, tachycardic, leukocytosis, - will start on broad-spectrum antibiotics - follow cultures # abdominal pain - likely secondary to acute cholangitis as well as a acute pancreatitis - patient has leukocytosis, febrile, increased bili, lactic acidosis - will keep NPO for possible MRCP in a.m. - GI consulted # acute pancreatitis - triglycerides normal, patient is status post cholecystectomy 20 years ago - has elevated lipase, as well as evidence of acute pancreatitis on CT - IVF, keep NPO - GI consulted # acute cholangitis - elevated bili, febrile, - treat with antibiotics - follow cultures # diabetes - hold oral antihyperglycemics - low-dose sliding scale # hypertension - hold antihypertensives in the setting of acute sepsis Time Spent With Patient Time: Total time managing care of this patient today ____ minutes. Quality Stroke Does the patient have a stroke diagnosis?: No VTE Prior VTE?: No VTE Risk Level:: Medical - moderate - high VTE Device Contraindication: Treatment Not Indicated VTE Drug Contraindication: N/A - Med Ordered
[2023-01-26 07:06] LABS: Alanine Aminotransferase 167 U/L (0-31); Albumin Level 2.7 g/dL (3.5-5.0); Alkaline Phosphatase 64 U/L (39-117); Anion Gap 16 (12-20); Aspartate Amino Transferase 230 U/L (5-31); Bilirubin Total 2.5 mg/dL (0.0-1.0); Blood Urea Nitrogen 18 mg/dL (9-16); Calcium 8.1 mg/dL (8.4-10.2); Carbon Dioxide 24 mmol/L (22-29); Chloride 107 mmol/L (96-108); Creatinine Clr Calc Pharmacy 45.7; Estimated Glomerular Filt Rate 47; Glucose Random 127 mg/dL (60-115); Potassium 3.3 mmol/L (3.3-5.1); Sodium 144 mmol/L (135-145); Total Protein 4.8 g/dL (6.5-8.0)
[2023-01-26 07:09] LABS: ~Lactic Acid-LAB USE ONLY 4.7 mmol/L (0.5-2.0)
--- NOTE | 2023-01-26 07:13 | PC.NURSE ---
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
--- NOTE | 2023-01-26 07:16 | PC.NURSE ---
pt is on 2L NC is not home O2 dependent, pts O2 sat is 96% will attempt to titrate off O2 nc.
[2023-01-26 07:26] LABS: Lymphocytes Percent Auto 4.3 % (20-40); Mean Corpuscular Volume 103.7 fL (80.0-98.0); NRBC Pct Auto 0.2 /100WBC (0.0-0.2); Neutrophils Absolute Auto 14.5 x10*3/uL (2.0-8.3); Red Cell Distribution Width 13.1 % (11.0-16.0)
[2023-01-26 07:28] LABS: Basophils Percent Auto 0.1 % (0-2); Hematocrit 39.3 % (37.0-47.0); Hemoglobin 12.8 g/dl (12.0-16.0); Imm Gran Abs Auto 0.33 X10*3/uL (0.00-0.03); Lymphocytes Absolute Auto 0.7 X10*3/uL (1.2-4.9); Mean Corpuscular HGB Conc 32.6 g/dl (31.0-35.0); Mean Corpuscular Hemoglobin 33.8 pg (27.0-33.0); Mean Platelet Volume 10.1 fL (9.4-12.3); Monocytes Absolute Auto 0.6 X10*3/uL (0.1-1.2); Monocytes Percent Auto 3.8 % (2-11); Neutrophils Percent Auto 89.8 % (45-73); Red Blood Count 3.79 X10*6/uL (4.20-5.50)
[2023-01-26 07:31] LABS: Platelet Count 126 X10*3/uL (160-400); White Blood Count 16.2 X10*3/uL (4.8-10.8)
[2023-01-26 08:10] LABS: Glucose, Whole Blood 133 mg/dL (60-115)
[2023-01-26 08:18] LABS: Bilirubin Direct 2.2 mg/dL (0.0-0.5); Ethanol < 10 mg/dL
--- NOTE | 2023-01-26 08:18 | PC.NURSE ---
per Dr. Naidu pt is ok to take PO meds but nothing by mouth other than her meds.
[2023-01-26] MEDS: Cyanocobalamin (Vitamin B-12) 1,000 MCG TABLET 1000 MCG PO (08:33)
[2023-01-26] MEDS: Phenytoin Sodium Extended 100 MG CAPSULE 300 MG PO ×2 (08:33→19:35)
[2023-01-26] MEDS: Multivitamin TABLET 1 TAB PO (08:33)
[2023-01-26] MEDS: Atorvastatin Calcium 40 MG TABLET PO (08:34)
[2023-01-26] MEDS: Omeprazole 20 MG CAPSULE.DR PO (08:34)
[2023-01-26] MEDS: Furosemide 20 MG TABLET PO (08:34)
[2023-01-26] MEDS: LORazepam 0.5 MG TABLET PO (08:34)
[2023-01-26 08:50] LABS: Reflex Lactate? 2 Y
--- NOTE | 2023-01-26 09:02 | PC.NURSE ---
pt medicated per order, called pharmacy for missing med, also messaged transport to see if we could find an inpt bed for the patient as she is uncomfortable in the stretcher.
--- NOTE | 2023-01-26 10:28 | P.PNIM_ITS ---
Subjective Subjective Date of Service: 01/26/23 Interval History: abd pain, weakness Physical Exam 2 Vital Signs: Vital Signs: Last Vital Signs Temp 99.7 F 01/26/23 07:12 Pulse 93 01/26/23 07:12 Resp 18 01/26/23 07:12 BP 103/39 L 01/26/23 07:12 Pulse Ox 96 01/26/23 07:12 O2 Del Method Nasal Cannula 01/26/23 06:11 O2 Flow Rate 2 01/26/23 07:12 BMI result Body Mass Index 40.8 ill appearing, abd tender, jaundiced Objective Data Active Medications Acetaminophen (Acetaminophen 325 Mg Tablet) 650 mg PO Q8H PRN PRN Reason: Pain, Mild (Pain Scale 1-3) Atorvastatin Calcium (Atorvastatin Calcium 40 Mg Tablet) 40 mg PO DAILY [facility] Last Admin: 01/26/23 08:34 Dose: 40 mg Documented By: ALBINA Cyanocobalamin (Cyanocobalamin (Vitamin B-12) 1,000 Mcg Tablet) 1,000 mcg PO DAILY [facility] Last Admin: 01/26/23 08:33 Dose: 1,000 mcg Documented By: ALBINA Dextrose (Dextrose 50 % 25 Gm/50 Ml Syringe) 25 gm IVPUSH Q15M PRN; Protocol PRN Reason: per Hypoglycemia Standing Ord. Docusate Sodium (Docusate Sodium 100 Mg Capsule) 100 mg PO DAILY PRN PRN Reason: Constipation Docusate Sodium (Docusate Sodium 100 Mg Capsule) 100 mg PO BID [facility] Last Admin: 01/26/23 08:34 Dose: Not Given Documented By: ALBINA Non-Admin Reason: See Note Furosemide (Furosemide 20 Mg Tablet) 20 mg PO DAILY [facility]; Protocol Last Admin: 01/26/23 08:34 Dose: 20 mg Documented By: ALBINA Glucose (Glucose Gel 15 Gm Gel..Gram.) 15 gm PO Q15M PRN; Protocol PRN Reason: per Hypoglycemia Standing Ord. Lactated Ringer's (Lr) 1,000 mls @ 200 mls/hr IVCONT .Q5H [facility] Last Admin: 01/26/23 07:10 Dose: 200 mls/hr Documented By: ALBINA Ceftriaxone Sodium 1 gm/ (Sodium Chloride) 50 mls @ 100 mls/hr IV Q24H [facility] Last Infusion: 01/26/23 03:29 Dose: Infused Documented By: COCO Metronidazole (Flagyl) 500 mg in 100 mls @ 100 mls/hr IV Q8H [facility] Last Infusion: 01/26/23 04:33 Dose: Infused Documented By: COCO Insulin Human Lispro (Insulin Lispro 100 Unit/Ml 3 Ml Vial) 0 unit SUBCUT QIDACHS [facility]; Protocol Last Admin: 01/26/23 08:10 Dose: Not Given Documented By: ALBINA Non-Admin Reason: No Insulin Coverage Loratadine (Loratadine 10 Mg Tablet) 10 mg PO DAILY PRN PRN Reason: rash Lorazepam (Lorazepam 0.5 Mg Tablet) 0.5 mg PO TID PRN PRN Reason: anxiety Last Admin: 01/26/23 08:34 Dose: 0.5 mg Documented By: ALBINA Multivitamins/Vitamin C (Multivitamin Tablet) 1 tab PO DAILY [facility] Last Admin: 01/26/23 08:33 Dose: 1 tab Documented By: ALBINA Omeprazole (Omeprazole 20 Mg Capsule.Dr) 20 mg PO DAILY [facility] Last Admin: 01/26/23 08:34 Dose: 20 mg Documented By: ALBINA Ondansetron HCl (Ondansetron Hcl 4 Mg/2 Ml Vial) 4 mg IVPUSH Q8H PRN PRN Reason: Nausea and Vomiting Phenytoin Sodium (Phenytoin Sodium Extended 100 Mg Capsule) 300 mg PO BID [facility] Last Admin: 01/26/23 08:33 Dose: 300 mg Documented By: ALBINA Sodium Chloride (0.9 % Sodium Chloride Flush 3 Ml Syringe) 3 ml IVFLUSH QSHIFT [facility] Last Admin: 01/26/23 07:02 Dose: Not Given Documented By: ALBINA Non-Admin Reason: IV Running Tizanidine HCl (Tizanidine Hcl 4 Mg Tablet) 4 mg PO Q8H PRN PRN Reason: muscle spasticity Triamcinolone Acetonide (Triamcinolone Acet 0.5 % Cream 15 Gm Tube) 1 appl TOPICAL TID [facility]; Protocol Last Admin: 01/26/23 09:44 Dose: Not Given Documented By: ALBINA Non-Admin Reason: Med Not Available Labs 01/26/23 06:43 01/26/23 06:43 Labs: Laboratory Results - last 24 hr 01/25/23 01/25/23 01/25/23 21:45 21:51 21:52 MCV 103.8 H MCH 33.6 H MCHC 32.4 RDW 12.8 Plt Count 167 MPV 9.8 Immature Gran % (Auto) 0.3 Neut % (Auto) 91.7 H Lymph % (Auto) 7.3 L [place] % (Auto) 0.5 L Eos % (Auto) 0.1 Baso % (Auto) 0.1 Lymph # (Auto) 0.8 L [place] # (Auto) 0.1 Eos # (Auto) 0.0 Baso # (Auto) 0.0 Abs Immat Gran (auto) 0.03 Absolute Neuts (auto) 10.4 H Absolute Nucleated RBC 0.000 Nucleated RBC % (auto) 0.0 Smear Tech's Comments VERIFIED PT 30.6 H INR 2.5 H Whole Blood INR Cancelled APTT 37.2 H D Anion Gap 20 Estim Creat Clear Calc 57.5 Estimated GFR > 60 POC Glucose Random Glucose 214 H Lactic Acid 4.5 H* Lactic Acid F/U @ 2Hr Lactic Acid F/U @ 4Hr Calcium 9.1 Total Bilirubin 1.5 H Direct Bilirubin AST 345 H ALT 161 H Alkaline Phosphatase 86 Total Protein 6.8 Albumin 3.7 Triglycerides 168 H Lipase > 300 H Urine Color Urine Appearance Urine pH Ur Specific [place] Urine Protein Urine Glucose (UA) Urine Ketones Urine Blood Urine Nitrite Ur Leukocyte Esterase Urine RBC Urine WBC Ur Squamous Epith Cells Urine Bacteria Hyaline Casts Ethyl Alcohol Influenza Type A (PCR) NEGATIVE Influenza Type B (PCR) NEGATIVE RSV RNA Qual (PCR) NEGATIVE SARS-CoV-2 RNA (RT-PCR) NEGATIVE 01/26/23 01/26/23 01/26/23 00:51 01:36 02:09 MCV MCH MCHC RDW Plt Count MPV Immature Gran % (Auto) Neut % (Auto) Lymph % (Auto) [place] % (Auto) Eos % (Auto) Baso % (Auto) Lymph # (Auto) [place] # (Auto) Eos # (Auto) Baso # (Auto) Abs Immat Gran (auto) Absolute Neuts (auto) Absolute Nucleated RBC Nucleated RBC % (auto) Smear Tech's Comments PT INR Whole Blood INR APTT Anion Gap Estim Creat Clear Calc Estimated GFR POC Glucose Random Glucose Lactic Acid 5.5 H* Lactic Acid F/U @ 2Hr 5.3 H* Lactic Acid F/U @ 4Hr Calcium Total Bilirubin Direct Bilirubin AST ALT Alkaline Phosphatase Total Protein Albumin Triglycerides Lipase Urine Color Yellow Urine Appearance Clear Urine pH 5.5 Ur Specific [place] 1.020 Urine Protein Negative Urine Glucose (UA) Negative Urine Ketones Negative Urine Blood Small (1+) H Urine Nitrite Negative Ur Leukocyte Esterase Negative Urine RBC 6-10 H Urine WBC 0-5 Ur Squamous Epith Cells 0-2 Urine Bacteria None Seen Hyaline Casts 0-2 Ethyl Alcohol Influenza Type A (PCR) Influenza Type B (PCR) RSV RNA Qual (PCR) SARS-CoV-2 RNA (RT-PCR) 01/26/23 01/26/23 01/26/23 03:44 06:43 08:05 MCV 103.7 H MCH 33.8 H MCHC 32.6 RDW 13.1 Plt Count 126 L MPV 10.1 Immature Gran % (Auto) 2.0 H Neut % (Auto) 89.8 H Lymph % (Auto) 4.3 L [place] % (Auto) 3.8 Eos % (Auto) 0.0 Baso % (Auto) 0.1 Lymph # (Auto) 0.7 L [place] # (Auto) 0.6 Eos # (Auto) 0.0 Baso # (Auto) 0.0 Abs Immat Gran (auto) 0.33 H Absolute Neuts (auto) 14.5 H Absolute Nucleated RBC 0.030 H Nucleated RBC % (auto) 0.2 Smear Tech's Comments PT INR Whole Blood INR APTT Anion Gap 16 Estim Creat Clear Calc 45.7 Estimated GFR 47 POC Glucose 133 H Random Glucose 127 H Lactic Acid Lactic Acid F/U @ 2Hr 4.7 H* Lactic Acid F/U @ 4Hr 5.5 H* Calcium 8.1 L D Total Bilirubin 2.5 H Direct Bilirubin 2.2 H AST 230 H ALT 167 H Alkaline Phosphatase 64 Total Protein 4.8 L Albumin 2.7 L Triglycerides Lipase Urine Color Urine Appearance Urine pH Ur Specific [place] Urine Protein Urine Glucose (UA) Urine Ketones Urine Blood Urine Nitrite Ur Leukocyte Esterase Urine RBC Urine WBC Ur Squamous Epith Cells Urine Bacteria Hyaline Casts Ethyl Alcohol < 10 Influenza Type A (PCR) Influenza Type B (PCR) RSV RNA Qual (PCR) SARS-CoV-2 RNA (RT-PCR) Assessment and Plan (1) Acute pancreatitis: Status: Acute Plan 77F PMH DVT, factor V leiden, DM, HTN, hld, presented with abd pain, fevers severe sepsis due to acute cholangitis (s/p ccy) and acute pancreatitis continue rocephin, flagyl aggressive hydration gi eval follow up cutlures DM inuslin history of dvt/factor v holding coumadin for potential procedure morbid obesity weight loss dnr/dni reason for continued hospitalization: septic Time Spent With Patient Time: Total time managing care of this patient today ____ minutes. Quality Stroke Does the patient have a stroke diagnosis?: No VTE Prior VTE?: No VTE Risk Level:: Medical - moderate - high VTE Device Contraindication: Treatment Not Indicated VTE Drug Contraindication: N/A - Med Ordered
[2023-01-26] MEDS: Lactated Ringers 1,000 ML 999 ML IV (11:27)
[2023-01-26] MEDS: Albumin Human 25 % 100 ML IV ×3 (11:28→23:07)
[2023-01-26] MEDS: Insulin Lispro 100 UNIT/ML 3 ML VIAL SUBCUT (11:42)
[2023-01-26 11:49] LABS: Glucose, Whole Blood 162 mg/dL (60-115)
--- NOTE | 2023-01-26 12:33 | MHC.CM.PN ---
PT REPORTS SHE LIVES ALONE AND IS INDEPENDENT WITH CARE SHE SAYS SHE HAS NO SERVICES AND REPORTS EVEN WHEN SHE NEEDED LE WOUND CARE, HER BROTHER ASSISTED HER PT HAS A WALKER SHE ONLY USES WHEN SHE WILL BE WALKING LONG DISTANCES SHE DOES NOT HAVE A HCP, SHE DECLINED TO COMPLETE ONE TODAY BUT DID ACCEPT THE INFO AND DOCUMENT PCP: JOSE LYON IMM DELIVERED DCP: HOME NO SERVICES VIA FAMILY TRANSPORT
[2023-01-26 12:41] LABS: ~Lactic Acid-LAB USE ONLY 5.1 mmol/L (0.5-2.0)
[2023-01-26] MEDS: Phytonadione (Vit K1) 10 MG in 0.9 % Sodium Chloride 50 ML 51 MG IV (13:19)
--- NOTE | 2023-01-26 15:07 | PC.NURSE ---
contact precautions maintained for r/o cdiff. Pt has not had BM at this time. informed of pt's low BP. bolus and other meds administered as ordered w/ + effect. MRI screen form completed and faxed to MRI. Pt's brother, HCP, signed form. NPO status maintained. informed of critical labs.
[2023-01-26] MEDS: Acetaminophen 325 MG TABLET 650 MG PO (16:03)
[2023-01-26 16:08] LABS: Glucose, Whole Blood 132 mg/dL (60-115)
--- NOTE | 2023-01-26 18:36 | PM.EVENT ---
Event Note Date of Service: 01/26/23 Event Note: GI Consult-Full note dictated-History via patient and EMR. Imp: 77 yo female s/p CCY approximately 50 yrs ago presenting with right upper abdominal pain, fever, and elevated LFT's, as well as sepsis. Her CT describes a dilated biliary tree but no stones were noted. Her symptoms of abdominal pain have improved and she is feeling somewhat better. The differential diagnosis is that of biliary obstruction due to a CBD stone with associated cholangitis and pancreatitis vs. a passed CBD stone with transient biliary obstruction causing cholangitis and pancreatitis on that basis. Rec: Continue antibiotics, supportive care, and F/U labs in the AM. MRCP today. If the MRCP shows a CBD stone she will need an ERCP with me or Dr. Momin. Full consent was obtained for this, including risks of bleeding, perforation, cholangitis, and pancreatitis. If the MRCP is negative for a retained CBD stone and she continues to clinically improve, then she would not need an ERCP. D/W patient in detail and she is comfortable with this plan. Thanks Time Spent With Patient Time: Total time managing care of this patient today ____ minutes.
[2023-01-26] MEDS: Docusate Sodium 100 MG CAPSULE PO (19:35)
[2023-01-26] MEDS: 0.9 % Sodium Chloride Flush 3 ML SYRINGE IVFLUSH (19:36)
[2023-01-26 21:04] LABS: Glucose, Whole Blood 121 mg/dL (60-115)
[2023-01-27] VITALS (7 sets, daily range): BP systolic 96–166; BP diastolic 54–80; PULSE 84–88; RESP 18–22; TEMP 36.7–37.1; O2SAT 92–96
[2023-01-27] MEDS: Acetaminophen 325 MG TABLET 650 MG PO ×3 (00:28→22:24)
[2023-01-27] MEDS: cefTRIAXone sodium 1 GM in 0.9 % Sodium Chloride 50 ML IV (01:22)
[2023-01-27] MEDS: Lactated Ringers 1,000 ML 200 ML IVCONT ×4 (01:56→18:04)
[2023-01-27] MEDS: metroNIDAZOLE/NS 500 MG/100 ML PIGGYBACK 100 MG IV ×3 (03:24→18:00)
--- NOTE | 2023-01-27 04:00 | CONS_ITS ---
DATE OF SERVICE: 01/26/2023 REASON FOR CONSULTATION: Abdominal pain, elevated LFTs, and abnormal x-ray of biliary tract. HISTORY OF PRESENT ILLNESS: This has been obtained from the patient and the medical record. The patient is a 77-year-old female, who describes having undergone a cholecystectomy approximately 50 years ago. She was well up until the past couple of days when she developed the onset of fairly severe right upper abdominal pain with associated nausea and some anorexia. She described a temperature over 103 at home. She also noticed some jaundice. She has never had this problem before. Due to the symptoms and persistent pain, she came to the ER for evaluation and was subsequently admitted. She did have some relative hypotension, which responded to fluids. Her temperature was as high as 104.7. Since admission, she has been feeling definitively better, although still having some residual right-sided abdominal pain. She has been afebrile over the majority of today. She reports that she definitely thinks she is feeling better. Prior to the past couple days, she denies any chronic GI complaints. She typically enjoys a good appetite without any significant heartburn or dysphagia. Her bowel movements have been regular without any hematochezia nor melena. She denies any known history of liver disease in herself nor family members. She does not use any alcohol. MEDICATIONS: At home included amlodipine, atorvastatin, B12, Colace, esomeprazole, furosemide, glipizide, lisinopril, lorazepam, vitamins, phenytoin, tizanidine, Coumadin. Her medications here in the hospital include acetaminophen, atorvastatin, ceftriaxone, Colace, Lasix, insulin, Claritin, Ativan p.r.n., IV Flagyl, omeprazole, Zofran p.r.n., phenytoin, vitamin K given earlier today, tizanidine p.r.n. PAST MEDICAL HISTORY: Cholecystectomy. 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 She has history of hyperlipidemia, hypertension, and [id number] diabetes mellitus. She denies any history of MD, nor stroke. She does have asthma. SOCIAL HISTORY: She does not smoke nor use any significant amounts of alcohol. She is a and lives by self. FAMILY HISTORY: Noncontributory. REVIEW OF SYSTEMS: CONSTITUTIONAL: Prior to the past couple days, she had been feeling well with good energy and good appetite. SKIN: No rash. No pruritus. CARDIAC: No chest pain. PULMONARY: No cough or hemoptysis. GI: As above. URINARY: No dysuria. No hematuria. NEUROLOGIC: No headaches. PHYSICAL EXAMINATION: GENERAL: The patient is a pleasant, alert, comfortable-appearing female. SKIN: Warm and dry. HEENT: Minimally icteric sclerae. Moist mucous membranes. NECK: Supple. CHEST: Clear. CARDIAC: Normal S1, S2. ABDOMEN: Soft. Normal bowel sounds. There is some mild right-sided tenderness, but without palpable mass, rebound, or guarding. LABORATORY DATA: White blood cell count on admission was 11.4 and this morning was 16.2. Hemoglobin 12.8. Platelets 126,000. Her PT yesterday was 30.6 with INR 2.5 on her warfarin. She had a completely normal liver profile this past October. Yesterday, she had a total bilirubin of 1.5 with AST 345, ALT 161, and alkaline phosphatase 86. Labs today showed a total bilirubin of up to 2.5, direct bilirubin 2.2, AST 230, ALT 167, and albumin 2.7. BUN 18, creatinine 1.1. Normal chemistries. She did have a CT scan of the abdomen and pelvis on admission. This describes some dilatation of the intrahepatic and extrahepatic biliary tree, which may be expected status-post cholecystectomy. There was no evidence of common duct stones, as can best be seen on the CT scan. There is some mild stranding in the head of the pancreas. The GI tract appeared unremarkable. IMPRESSION: The patient is a 77-year-old female, who is status post cholecystectomy, but is presenting with signs and symptoms consistent with possible biliary obstruction and cholangitis. At this point, given some clinical improvement, she may very well have passed a stone with some transient biliary obstruction and resultant cholangitis and pancreatitis on that basis. The other possibility is that of a retained common duct stone with biliary obstruction and pancreatitis on that basis. At this point, I will continue supportive care with antibiotics. She will have a MRCP later today. She will have followup laboratories in the morning. Based on the results of the MRCP and her clinical course, we would then decide about ERCP for further treatment and evaluation. In the event that is needed, full consent has been obtained for the ERCP including risks of bleeding, perforation, cholangitis, and pancreatitis. I did review with the patient that this would be done either by myself or Dr. Momin. In the meantime, we shall proceed with the current plan, but if she develops acute problems with worsening sepsis, we could always proceed sooner with ERCP if need be. This has all been discussed with the patient in detail and she is comfortable with the plan. Thank you for the consultation. MD BRUNO North/LEONOR / [phone] MTDD
--- NOTE | 2023-01-27 05:23 | PC.NURSE ---
Pt had BP 160/75 H 85 and last dose of Albumin due, Dr. Franco held the 4th dose.
[2023-01-27 07:15] LABS: Hematocrit 34.8 % (37.0-47.0); Hemoglobin 11.3 g/dl (12.0-16.0); Mean Corpuscular HGB Conc 32.5 g/dl (31.0-35.0); Mean Corpuscular Hemoglobin 33.8 pg (27.0-33.0); Mean Corpuscular Volume 104.2 fL (80.0-98.0); Mean Platelet Volume 10.6 fL (9.4-12.3); Red Blood Count 3.34 X10*6/uL (4.20-5.50); Red Cell Distribution Width 13.2 % (11.0-16.0); White Blood Count 15.1 X10*3/uL (4.8-10.8)
[2023-01-27 07:24] LABS: Glucose, Whole Blood 89 mg/dL (60-115)
[2023-01-27 07:27] LABS: INTERNATIONAL NORM RATIO 1.8 (0.9-1.1); Prothrombin Time 21.5 SEC (11.1-13.3)
[2023-01-27 07:32] LABS: Alanine Aminotransferase 157 U/L (0-31); Albumin Level 3.4 g/dL (3.5-5.0); Alkaline Phosphatase 60 U/L (39-117); Anion Gap 14 (12-20); Aspartate Amino Transferase 133 U/L (5-31); Bilirubin Direct 3.3 mg/dL (0.0-0.5); Bilirubin Total 3.8 mg/dL (0.0-1.0); Blood Urea Nitrogen 21 mg/dL (9-16); Calcium 8.4 mg/dL (8.4-10.2); Carbon Dioxide 26 mmol/L (22-29); Chloride 104 mmol/L (96-108); Creatinine Clr Calc Pharmacy 64.9; Estimated Glomerular Filt Rate > 60; Glucose Fasting 85 mg/dL (60-99); Lipase 21 U/L (8-78); Magnesium 1.6 mg/dL (1.6-2.6); Potassium 3.9 mmol/L (3.3-5.1); Sodium 140 mmol/L (135-145); Total Protein 5.5 g/dL (6.5-8.0)
[2023-01-27 07:50] LABS: Platelet Count 73 X10*3/uL (160-400)
[2023-01-27] MEDS: Multivitamin TABLET 1 TAB PO (08:54)
[2023-01-27] MEDS: Atorvastatin Calcium 40 MG TABLET PO (08:54)
[2023-01-27] MEDS: Phenytoin Sodium Extended 100 MG CAPSULE 300 MG PO ×2 (08:54→20:26)
[2023-01-27] MEDS: Cyanocobalamin (Vitamin B-12) 1,000 MCG TABLET 1000 MCG PO (08:54)
[2023-01-27] MEDS: Omeprazole 20 MG CAPSULE.DR PO (08:55)
[2023-01-27] MEDS: Docusate Sodium 100 MG CAPSULE PO ×2 (08:55→20:27)
[2023-01-27] MEDS: Furosemide 20 MG TABLET PO (08:55)
--- NOTE | 2023-01-27 09:18 | HO.PM.IMPN ---
Subjective Subjective Date of Service: 01/27/23 Interval History: interested in clears, overall improved, still with abd pain, weakness Physical Exam Vital Signs: Vital Signs: Last Vital Signs Temp 98.0 F 01/27/23 07:33 Pulse 86 01/27/23 07:33 Resp 22 H 01/27/23 07:33 BP 166/80 H 01/27/23 07:33 Pulse Ox 96 01/27/23 07:33 O2 Del Method Nasal Cannula 01/27/23 07:33 O2 Flow Rate 1 01/27/23 07:33 BMI result Body Mass Index 40.8 General: AO X 3, no acute distress Resp: CTA bilateral, no accessory muscles used CVS: S1,S2,RRR GI: soft, tender, non distended Neuro: motor grossly intact, alert Psych: appropriate affect, appropriate insight Objective Data Active Medications Acetaminophen (Acetaminophen 325 Mg Tablet) 650 mg PO Q8H PRN PRN Reason: Pain, Mild (Pain Scale 1-3) Last Admin: 01/27/23 00:28 Dose: 650 mg Documented By: ABHIJIT Atorvastatin Calcium (Atorvastatin Calcium 40 Mg Tablet) 40 mg PO DAILY [facility] Last Admin: 01/27/23 08:54 Dose: 40 mg Documented By: DOTTIE Cyanocobalamin (Cyanocobalamin (Vitamin B-12) 1,000 Mcg Tablet) 1,000 mcg PO DAILY [facility] Last Admin: 01/27/23 08:54 Dose: 1,000 mcg Documented By: DOTTIE Dextrose (Dextrose 50 % 25 Gm/50 Ml Syringe) 25 gm IVPUSH Q15M PRN; Protocol PRN Reason: per Hypoglycemia Standing Ord. Docusate Sodium (Docusate Sodium 100 Mg Capsule) 100 mg PO DAILY PRN PRN Reason: Constipation Docusate Sodium (Docusate Sodium 100 Mg Capsule) 100 mg PO BID [facility] Last Admin: 01/27/23 08:55 Dose: 100 mg Documented By: DOTTIE Furosemide (Furosemide 20 Mg Tablet) 20 mg PO DAILY [facility]; Protocol Last Admin: 01/27/23 08:55 Dose: 20 mg Documented By: DOTTIE Glucose (Glucose Gel 15 Gm Gel..Gram.) 15 gm PO Q15M PRN; Protocol PRN Reason: per Hypoglycemia Standing Ord. Lactated Ringer's (Lr) 1,000 mls @ 200 mls/hr IVCONT .Q5H [facility] Last Admin: 01/27/23 06:29 Dose: 200 mls/hr Documented By: ABHIJIT Ceftriaxone Sodium 1 gm/ (Sodium Chloride) 50 mls @ 100 mls/hr IV Q24H [facility] Last Infusion: 01/27/23 02:01 Dose: Infused Documented By: ABHIJIT Metronidazole (Flagyl) 500 mg in 100 mls @ 100 mls/hr IV Q8H [facility] Last Infusion: 01/27/23 04:31 Dose: Infused Documented By: ABHIJIT Insulin Human Lispro (Insulin Lispro 100 Unit/Ml 3 Ml Vial) 0 unit SUBCUT QIDACHS [facility]; Protocol Last Admin: 01/27/23 08:12 Dose: Not Given Documented By: DOTTIE Non-Admin Reason: No Insulin Coverage Loratadine (Loratadine 10 Mg Tablet) 10 mg PO DAILY PRN PRN Reason: rash Lorazepam (Lorazepam 0.5 Mg Tablet) 0.5 mg PO TID PRN PRN Reason: anxiety Last Admin: 01/26/23 08:34 Dose: 0.5 mg Documented By: ALBINA Multivitamins/Vitamin C (Multivitamin Tablet) 1 tab PO DAILY [facility] Last Admin: 01/27/23 08:54 Dose: 1 tab Documented By: DOTTIE Omeprazole (Omeprazole 20 Mg Capsule.) 20 mg PO DAILY [facility] Last Admin: 01/27/23 08:55 Dose: 20 mg Documented By: DOTTIE Ondansetron HCl (Ondansetron Hcl 4 Mg/2 Ml Vial) 4 mg IVPUSH Q8H PRN PRN Reason: Nausea and Vomiting Phenytoin Sodium (Phenytoin Sodium Extended 100 Mg Capsule) 300 mg PO BID [facility] Last Admin: 01/27/23 08:54 Dose: 300 mg Documented By: DOTTIE Sodium Chloride (0.9 % Sodium Chloride Flush 3 Ml Syringe) 3 ml IVFLUSH QSHIFT [facility] Last Admin: 01/27/23 08:12 Dose: Not Given Documented By: DOTTIE Non-Admin Reason: IV Running Tizanidine HCl (Tizanidine Hcl 4 Mg Tablet) 4 mg PO Q8H PRN PRN Reason: muscle spasticity Triamcinolone Acetonide (Triamcinolone Acet 0.5 % Cream 15 Gm Tube) 1 appl TOPICAL TID EUNICE; Protocol Last Admin: 01/26/23 22:32 Dose: Not Given Documented By: ABHIJIT Non-Admin Reason: Med Not Available Labs 01/27/23 06:52 01/27/23 06:52 Labs: Laboratory Results - last 24 hr 01/26/23 01/26/23 01/26/23 11:17 11:18 15:45 MCV MCH MCHC RDW Plt Count MPV Absolute Nucleated RBC Nucleated RBC % (auto) PT INR Anion Gap Estim Creat Clear Calc Estimated GFR POC Glucose 162 H 132 H Fasting Glucose Lactic Acid F/U @ 4Hr 5.1 H* Calcium Magnesium Total Bilirubin Direct Bilirubin AST ALT Alkaline Phosphatase Total Protein Albumin Lipase Blood Type Antibody Screen 01/26/23 01/27/23 01/27/23 20:16 06:52 07:11 MCV 104.2 H MCH 33.8 H MCHC 32.5 RDW 13.2 Plt Count 73 L D MPV 10.6 Absolute Nucleated RBC 0.000 Nucleated RBC % (auto) 0.0 PT 21.5 H D INR 1.8 H Anion Gap 14 Estim Creat Clear Calc 64.9 Estimated GFR > 60 POC Glucose 121 H 89 Fasting Glucose 85 Lactic Acid F/U @ 4Hr Calcium 8.4 Magnesium 1.6 Total Bilirubin 3.8 H Direct Bilirubin 3.3 H AST 133 H ALT 157 H Alkaline Phosphatase 60 Total Protein 5.5 L Albumin 3.4 L Lipase 21 Blood Type A Negative Antibody Screen NEGATIVE Microbiology Microbiology Results: Microbiology 01/26/23 00:51 Blood Culture - Preliminary Blood - Venous Gram negative eder 01/25/23 21:45 Blood Culture - Preliminary Blood - Venous Gram negative eder Prelim: GPR Gram Stain only Assessment and Plan (1) Acute pancreatitis: Status: Acute Plan 77F PMH DVT, factor V leiden, DM, HTN, hld, presented with abd pain, fevers severe sepsis due to acute cholangitis (s/p ccy) and acute pancreatitis complicated by GNR bacteremia continue rocephin, flagyl, follow up cultures mrcp with no obstruction (suspect passed stone) decrease LR to 100cc/hr advance diet to clears DM insulin history of dvt/factor v coumadin, monitor inr morbid obesity weight loss dnr/dni reason for continued hospitalization: cultures, advancing diet Time Spent With Patient Time: Total time managing care of this patient today ____ minutes. Quality Stroke Does the patient have a stroke diagnosis?: No VTE Prior VTE?: No VTE Risk Level:: Medical - moderate - high VTE Device Contraindication: Treatment Not Indicated VTE Drug Contraindication: N/A - Med Ordered
[2023-01-27 11:22] LABS: Glucose, Whole Blood 172 mg/dL (60-115)
[2023-01-27] MEDS: Insulin Lispro 100 UNIT/ML 3 ML VIAL SUBCUT (11:28)
[2023-01-27] MEDS: TiZANidine HCL 4 MG TABLET PO ×2 (12:23→22:24)
[2023-01-27 15:57] LABS: Glucose, Whole Blood 110 mg/dL (60-115)
[2023-01-27] MEDS: Warfarin Sodium 5 MG TABLET PO (17:57)
[2023-01-27 21:01] LABS: Glucose, Whole Blood 131 mg/dL (60-115)
[2023-01-27] MEDS: Lactated Ringers 1,000 ML 100 ML IVCONT (22:27)
[2023-01-28] VITALS (8 sets, daily range): BP systolic 117–146; BP diastolic 56–85; PULSE 81–95; RESP 17–20; TEMP 36.6–37.2; O2SAT 92–98
[2023-01-28] MEDS: cefTRIAXone sodium 1 GM in 0.9 % Sodium Chloride 50 ML IV (01:09)
[2023-01-28] MEDS: metroNIDAZOLE/NS 500 MG/100 ML PIGGYBACK 100 MG IV ×3 (02:27→20:56)
[2023-01-28 06:36] LABS: INTERNATIONAL NORM RATIO 1.3 (0.9-1.1); Prothrombin Time 15.9 SEC (11.1-13.3)
[2023-01-28 06:39] LABS: Alanine Aminotransferase 98 U/L (0-31); Albumin Level 2.9 g/dL (3.5-5.0); Alkaline Phosphatase 61 U/L (39-117); Anion Gap 10 (12-20); Aspartate Amino Transferase 51 U/L (5-31); Bilirubin Direct 1.6 mg/dL (0.0-0.5); Blood Urea Nitrogen 16 mg/dL (9-16); Calcium 8.7 mg/dL (8.4-10.2); Carbon Dioxide 28 mmol/L (22-29); Chloride 104 mmol/L (96-108); Creatinine Clr Calc Pharmacy 71.2; Estimated Glomerular Filt Rate > 60; Glucose Fasting 89 mg/dL (60-99); Potassium 3.3 mmol/L (3.3-5.1); Sodium 139 mmol/L (135-145); Total Protein 5.2 g/dL (6.5-8.0)
[2023-01-28 06:58] LABS: Hematocrit 33.7 % (37.0-47.0); Hemoglobin 11.1 g/dl (12.0-16.0); Mean Corpuscular HGB Conc 32.9 g/dl (31.0-35.0); Mean Corpuscular Hemoglobin 33.9 pg (27.0-33.0); Mean Corpuscular Volume 103.1 fL (80.0-98.0); Mean Platelet Volume 10.5 fL (9.4-12.3); Platelet Count 81 X10*3/uL (160-400); Red Blood Count 3.27 X10*6/uL (4.20-5.50); Red Cell Distribution Width 13.1 % (11.0-16.0); White Blood Count 12.6 X10*3/uL (4.8-10.8)
--- NOTE | 2023-01-28 07:00 | CA_ITS ---
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 The visually estimated ejection fraction is between 55-60%. - There is moderate septal asymmetric hypertrophy. - There is mild aortic valve stenosis. Findings Left Ventricle Normal left ventricular cavity size. There is mildly increased left ventricular wall thickness. The left ventricular systolic function is normal. The visually estimated ejection fraction is between 55-60%. There is no evidence of regional wall motion abnormalities. Evidence suggests grade I (mild) diastolic dysfunction. There is moderate septal asymmetric hypertrophy. Right Ventricle The right ventricle was not well visualized. There is normal right ventricular systolic function. (size measurements likely inaccurate) Atria Both atria are normal in size. Aortic Valve The aortic valve was not well visualized. There is mild calcification of the aortic valve. There is mild aortic valve stenosis. There is no aortic valve regurgitation. Mitral Valve There is mild mitral annular calcification. There is no mitral valve regurgitation. There is no mitral valve stenosis. Pulmonic Valve The pulmonic valve is likely normal. Tricuspid Valve There is trace tricuspid valve regurgitation. There is no evidence of pulmonary hypertension. Great Vessels The asc aorta is normal in size. Venous The inferior vena cava is mildly dilated and collapses greater than 50% with inspiration. Pericardium/Pleural There is no evidence of pericardial effusion. Prior Study Comparison No prior study available for comparison. Measurements 2D Linear Measurements IVSd: 1.48 0.6-0.9/0.6-1.0 cm LVIDd: 4.73 3.9-5.3/4.2-5.9 cm LVIDd Index: 2.43 2.4-3.2/2.2-3.1 cm/m2 LVIDs: 2.53 2.0-3.6 cm LVPWd: 1.25 0.7-1.1 cm Ao Root: 2.90 2.1-3.5 cm LA Diam: 3.70 2.7-3.8/3.0-4.0 cm LAIDs Index: 1.90 1.5-2.3 cm/m2 LV Mass: 321.71 67-162/88-224 g LV Mass Index: 164.98 43-95/49-115 g/m2 LVOT Diam: 2.00 3.0+(-)1.3 cm Mitral Valve MV Pk E: 1.04 MV PK A: 1.20 MV Decel Time: 141.00 E/A: 0.90 E'Lateral: 6.09 E'Medial: 5.22 E/E' Med: 19.90 E/E' Lat: 17.10 PHT: 41.00 MVA PHT: 5.37 Decel [place]: 7.38 Aortic Valve AoV Pk Phillip: 2.42 AoV Mn Phillip: 1.56 AoV VTI: 0.46 AoV Pk Grad: 23.00 Aov Mn Grad: 12.00 NANCY Cont.VTI: 1.58 LVOT LVOT Pk Phillip: 1.12 LVOT Mn Phillip: 0.81 LVOT VTI: 0.23 LVOT Pk Grad: 5.00 LVOT Mn Grad: 3.00 LVOT Diam: 2.00 LVOT Area: 3.14 Diastolic Function MV Pk E: 1.04 MV Pk A: 1.20 E/A: 0.90 E'Medial: 5.22 E/E' Med: 19.90 E' Laterial: 6.09 E/E' Lat: 17.10 Right Ventricle TAPSE (mm): 27.00 TVS' Phillip: 17.00 Tricuspid Valve TR Pk Phillip: 2.14 TR Pk Grad: 18.00 RA Press: 3.00 RVSP: 21.00 Great Vessels Aorta Ao Root-2D: 2.90 2.0-3.7 cm Ao Asc: 3.50 2.1-3.4 cm Updated in Other Vendor System with Status of Final James Arnold MD electronically signed on 01/28/2023 4:57:51 PM with status of Final
[2023-01-28 07:45] LABS: Glucose, Whole Blood 90 mg/dL (60-115)
[2023-01-28] MEDS: Cyanocobalamin (Vitamin B-12) 1,000 MCG TABLET 1000 MCG PO (08:13)
[2023-01-28] MEDS: Atorvastatin Calcium 40 MG TABLET PO (08:13)
[2023-01-28] MEDS: Docusate Sodium 100 MG CAPSULE PO ×2 (08:13→20:56)
[2023-01-28] MEDS: Phenytoin Sodium Extended 100 MG CAPSULE 300 MG PO ×2 (08:13→20:56)
[2023-01-28] MEDS: Omeprazole 20 MG CAPSULE.DR PO (08:14)
[2023-01-28] MEDS: Furosemide 20 MG TABLET PO (08:14)
[2023-01-28] MEDS: Multivitamin TABLET 1 TAB PO (08:14)
[2023-01-28] MEDS: 0.9 % Sodium Chloride Flush 3 ML SYRINGE IVFLUSH ×3 (08:14→20:56)
--- NOTE | 2023-01-28 09:05 | ECG_ITS ---
Test Reason : afib Blood Pressure : / mmHG Vent. Rate : 134 BPM Atrial Rate : 000 BPM P-R Int : 000 ms QRS Dur : 096 ms QT Int : 314 ms P-R-T Axes : 000 155 001 degrees QTc Int : 468 ms Atrial fibrillation with rapid ventricular response Incomplete right bundle branch block Possible Right ventricular hypertrophy Possible Inferior infarct (cited on or before 02-SEP-2021) Abnormal ECG When compared with ECG of 02-SEP-2021 21:58, Atrial fibrillation has replaced Sinus rhythm Incomplete right bundle branch block is now Present Nonspecific T wave abnormality no longer evident in Anterior leads Referred By: Guevara Franco Electronically Signed By:MELODIE SALEH
[2023-01-28] MEDS: LORazepam 0.5 MG TABLET PO ×2 (09:49→18:01)
[2023-01-28 10:16] LABS: Magnesium 1.8 mg/dL (1.6-2.6)
[2023-01-28] MEDS: dilTIAZem HCL 30 MG TABLET PO ×4 (10:18→20:55)
[2023-01-28] MEDS: Magnesium Sulfate/H2O 2 GM/50 ML PIGGYBACK IV (10:18)
[2023-01-28 10:37] LABS: Thyroid Stimulating Hormone 7.25 uIU/mL (0.32-4.0)
--- NOTE | 2023-01-28 10:55 | PC.NURSE ---
0900- Patient noted to be in Afib with HR 130s-140s. Patient feeling fine, denies feeling chest pain, racing heart rate. Dr. Franco made aware. EKG ordered and obtained. 45- Patient continue to have HR in 130s-140s. Patient starting to feel anxious, mild SOB. Ativan given per EMAR. Dr. Franco updated. IV and PO cardizem ordered. 949- Patient converted back sinus rhythm, HR 90s. Dr. Franco updated, IV cardizem d/c'd, PO cardizem and Mag IV to be given per EMAR. Patient updated on plan, all needs met.
--- NOTE | 2023-01-28 11:10 | PM.CNCAR ---
History of Present Illness History of Present Illness Date of Service: 01/28/23 Chief complaint: Sepsis Narrative: This is a cardiology consultation regarding atrial fibrillation with rapid ventricular rate. Patient denies any previous cardiac issues including coronary disease, myocardial infarction or cardiomyopathy or in fact any cardiac issues at all. Per documentation, she is here for severe sepsis/acute cholangitis/pancreatitis complicated by bacteremia. In this context, she was noted to have atrial fibrillation rapid rate this morning for about an hour or so. Patient herself does not really feel any symptoms from that. She is back in normal sinus rhythm now. Review of Systems Review of Systems: Yes all other systems are reviewed and are negative Constitutional: Constitutional: Reports as per HPI and Reports no additional constitutional complaints Eyes: Eyes: Reports as per HPI and Denies no additional eye complaints ENT: Denies system reviewed and no additional complaints, except as documented and Reports as per HPI Cardiovascular: Cardiovascular: Reports as per HPI, Reports no additional cardiovascular complaints, Denies acrocyanosis, Denies cool extremities, Denies chest pain, Denies leg edema, Denies lightheadedness, Denies palpitations and Denies dyspnea Respiratory: Respiratory: Reports as per HPI, Denies no additional respiratory complaints and Denies dyspnea Gastrointestinal: Gastrointestinal: Reports as per HPI and Denies no additional gastrointestinal complaints Genitourinary: Genitourinary: Reports as per HPI Musculoskeletal: Musculoskeletal: Reports no additional musculoskeletal complaints and Reports as per HPI Integumentary/Breasts: Skin/Breast: Reports system reviewed and no additional complaints, except as docu Neurologic: Reports system reviewed and no additional complaints, except as documented and Reports as per HPI Psychiatric: Psychiatric: Reports no additional psychiatric complaints and Reports as per HPI Endocrine: Endocrine: Reports no additional endocrine complaints, Reports as per HPI and Denies palpitations Hematologic/Lymphatic: Hematologic/Lymphatic: Reports no additional hematologic/lymphatic complaints and Reports as per HPI Allergic/Immunologic: Allergic/Immunologic: Reports no additional allergic/immunologic complaints and Reports as per HPI [facility] Past Medical History Medical History (Updated 01/28/23 @ 11:12 by James Arnold MD) Factor V Leiden DVT (deep venous thrombosis) Hyperlipidemia Hypertension Diabetes mellitus with coincident hypertension Family History Family History Father Asthma Mother Diabetes Hypertension Colon cancer Other Substance use disorder Surgical History Surgical History History of lumpectomy of right breast History of appendectomy History of cholecystectomy Social History Social History Household Members: None Housing: Apartment Do you presently have visiting nurse or other home services: No Alcohol intake: never Patient Tobacco Use Status: Never used Tobacco e-Cigarette/Vaping Use: Never Used Second Hand Smoke Exposure: No Advance Directives Date on File: 02/08/20 service: No Current occupational status: employed Cognitive needs: No Hearing needs: No Vision needs: No Meds Allergies Allergy/AdvReac Type Severity Reaction Status Date / Time shrimp [SHRIMP] Allergy Mild HIVES Verified 01/14/23 09:56 No Known Drug Allergies Allergy Unknown Unknown Verified 01/14/23 09:56 Active Medications: Current Medications Acetaminophen (Acetaminophen 325 Mg Tablet) 650 mg PO Q8H PRN PRN Reason: Pain, Mild (Pain Scale 1-3) Last Admin: 01/27/23 22:24 Dose: 650 mg Atorvastatin Calcium (Atorvastatin Calcium 40 Mg Tablet) 40 mg PO DAILY [facility] Last Admin: 01/28/23 08:13 Dose: 40 mg Cyanocobalamin (Cyanocobalamin (Vitamin B-12) 1,000 Mcg Tablet) 1,000 mcg PO DAILY [facility] Last Admin: 01/28/23 08:13 Dose: 1,000 mcg Dextrose (Dextrose 50 % 25 Gm/50 Ml Syringe) 25 gm IVPUSH Q15M PRN; Protocol PRN Reason: per Hypoglycemia Standing Ord. Diltiazem HCl (Diltiazem Hcl 30 Mg Tablet) 30 mg PO QID [facility]; Protocol Last Admin: 01/28/23 10:18 Dose: 30 mg Docusate Sodium (Docusate Sodium 100 Mg Capsule) 100 mg PO DAILY PRN PRN Reason: Constipation Docusate Sodium (Docusate Sodium 100 Mg Capsule) 100 mg PO BID [facility] Last Admin: 01/28/23 08:13 Dose: 100 mg Furosemide (Furosemide 20 Mg Tablet) 20 mg PO DAILY [facility]; Protocol Last Admin: 01/28/23 08:14 Dose: 20 mg Glucose (Glucose Gel 15 Gm Gel..Gram.) 15 gm PO Q15M PRN; Protocol PRN Reason: per Hypoglycemia Standing Ord. Ceftriaxone Sodium 1 gm/ (Sodium Chloride) 50 mls @ 100 mls/hr IV Q24H [facility] Last Infusion: 01/28/23 01:45 Dose: Infused Metronidazole (Flagyl) 500 mg in 100 mls @ 100 mls/hr IV Q8H [facility] Last Infusion: 01/28/23 03:31 Dose: Infused Magnesium Sulfate (Magnesium Sulfate/H2o) 2 gm in 50 mls @ 25 mls/hr IV ONCE ONE Stop: 01/28/23 11:50 Last Admin: 01/28/23 10:18 Dose: 25 mls/hr Insulin Human Lispro (Insulin Lispro 100 Unit/Ml 3 Ml Vial) 0 unit SUBCUT QIDACHS [facility]; Protocol Last Admin: 01/28/23 07:48 Dose: Not Given Loratadine (Loratadine 10 Mg Tablet) 10 mg PO DAILY PRN PRN Reason: rash Lorazepam (Lorazepam 0.5 Mg Tablet) 0.5 mg PO TID PRN PRN Reason: anxiety Last Admin: 01/28/23 09:49 Dose: 0.5 mg Multivitamins/Vitamin C (Multivitamin Tablet) 1 tab PO DAILY [facility] Last Admin: 01/28/23 08:14 Dose: 1 tab Omeprazole (Omeprazole 20 Mg Capsule.Dr) 20 mg PO DAILY [facility] Last Admin: 01/28/23 08:14 Dose: 20 mg Ondansetron HCl (Ondansetron Hcl 4 Mg/2 Ml Vial) 4 mg IVPUSH Q8H PRN PRN Reason: Nausea and Vomiting Phenytoin Sodium (Phenytoin Sodium Extended 100 Mg Capsule) 300 mg PO BID [facility] Last Admin: 01/28/23 08:13 Dose: 300 mg Sodium Chloride (0.9 % Sodium Chloride Flush 3 Ml Syringe) 3 ml IVFLUSH QSHIFT [facility] Last Admin: 01/28/23 08:14 Dose: 3 ml Tizanidine HCl (Tizanidine Hcl 4 Mg Tablet) 4 mg PO Q8H PRN PRN Reason: muscle spasticity Last Admin: 01/27/23 22:24 Dose: 4 mg Triamcinolone Acetonide (Triamcinolone Acet 0.5 % Cream 15 Gm Tube) 1 appl TOPICAL TID [facility]; Protocol Last Admin: 01/28/23 09:22 Dose: Not Given Warfarin Sodium (Warfarin Sodium 5 Mg Tablet) 5 mg PO DAILY@1800 [facility] Last Admin: 01/27/23 17:57 Dose: 5 mg Home Medications Medication Instructions Recorded Confirmed Last Taken Type cyanocobalamin (vitamin B-12) 1,000 mcg PO DAILY 02/03/20 01/26/23 Unknown History 1,000 mcg capsule multivitamin 1 tab PO DAILY 02/03/20 01/26/23 Unknown History esomeprazole magnesium 20 mg 20 mg PO DAILY 01/08/22 01/26/23 05/20/22 History capsule,delayed release (Nexium) 20 mg Physical Exam Vital Signs: Vital Signs: Last Vital Signs Temp 98.9 F 01/28/23 07:36 Pulse 95 01/28/23 10:59 Resp 18 01/28/23 07:36 BP 131/57 L 01/28/23 10:59 Pulse Ox 94 01/28/23 07:36 O2 Del Method Room Air 01/28/23 07:36 O2 Flow Rate 1 01/27/23 07:33 BMI result Body Mass Index 40.8 Const: General: comfortable and no acute distress Orientation/consciousness: patient oriented x3 HEENT: Other: Unremarkable Head: Yes normal to inspection Neck: Neck: Yes normal visual inspection Chest: Chest palpation & inspection: normal inspection of the chest Resp: Auscultation: clear to auscultation bilaterally Cardio: Palpation: normal PMI Heart sounds: S1 normal heart sound present, S2 normal heart sound present, no gallops, Murmur heart sound present systolic II/ and at the right sternal border and no rubs GI: Palpation (GI): Soft to palpation Back/Spine/Pelvis: Other: unremarkable Skin: General skin exam: no rashes or lesions noted Neuro: General: patient oriented x3 Extrem: General: Yes normal to inspection Psych: Mental Status: mental status grossly normal Objective Labs and Meds 01/28/23 06:09 01/28/23 06:09 Lab results: Laboratory Results - last 24 hr 01/27/23 01/27/23 01/27/23 11:16 15:49 20:55 WBC RBC Hgb Hct MCV MCH MCHC RDW Plt Count MPV Absolute Nucleated RBC Nucleated RBC % (auto) PT INR Sodium Potassium Chloride Carbon Dioxide Anion Gap BUN Creatinine Estim Creat Clear Calc Estimated GFR POC Glucose 172 H 110 131 H Fasting Glucose Calcium Magnesium Total Bilirubin Direct Bilirubin AST ALT Alkaline Phosphatase Total Protein Albumin TSH 01/28/23 01/28/23 06:09 07:40 WBC 12.6 H RBC 3.27 L Hgb 11.1 L Hct 33.7 L MCV 103.1 H MCH 33.9 H MCHC 32.9 RDW 13.1 Plt Count 81 L MPV 10.5 Absolute Nucleated RBC 0.000 Nucleated RBC % (auto) 0.0 PT 15.9 H D INR 1.3 H Sodium 139 Potassium 3.3 Chloride 104 Carbon Dioxide 28 Anion Gap 10 L BUN 16 Creatinine 0.72 Estim Creat Clear Calc 71.2 Estimated GFR > 60 POC Glucose 90 Fasting Glucose 89 Calcium 8.7 Magnesium 1.8 Total Bilirubin 2.0 H Direct Bilirubin 1.6 H AST 51 H ALT 98 H Alkaline Phosphatase 61 Total Protein 5.2 L Albumin 2.9 L TSH 7.25 H ECG Interpretation: EKG with atrial fibrillation rate of 134/Min; incomplete right bundle-branch block and nonspecific ST-T changes. Cannot exclude old inferior infarct. Currently, she is in sinus rhythm on telemetry. Assessment and Plan (1) Atrial fibrillation with rapid ventricular response: Status: Acute Plan Episode of atrial fibrillation rapid rate in the setting of acute medical illness. Currently back in normal sinus rhythm. Duration of arrhythmia just about an hour or less. On echocardiogram, has aortic stenotic murmur. Currently, started on diltiazem 30 mg q.i.d. and agree with that. Hold off anticoagulation unless recurrent arrhythmias. Otherwise, echocardiogram for cardiac function assessment as well as for assessing aortic valve. Discussed with Dr. Franco. Will follow up with you. Time Spent With Patient Time: Total time managing care of this patient today ____ minutes. Procedures Date of Service Date of Service: 01/28/23
[2023-01-28 11:18] LABS: Glucose, Whole Blood 144 mg/dL (60-115)
--- NOTE | 2023-01-28 13:37 | HO.PM.IMPN ---
Subjective Subjective Date of Service: 01/28/23 Interval History: Seen and evaluated this morning tolerating diet LFT trending down break into Afib w RvR for short period no reported fever or chest pain Review of Systems Review of Systems: Yes all other systems are reviewed and are negative Physical Exam Vital Signs: Vital Signs: Last Vital Signs Temp 98.8 F 01/28/23 11:13 Pulse 93 01/28/23 11:13 Resp 18 01/28/23 11:13 BP 126/57 L 01/28/23 11:13 Pulse Ox 93 01/28/23 11:13 O2 Del Method Room Air 01/28/23 11:13 O2 Flow Rate 1 01/27/23 07:33 BMI result Body Mass Index 40.8 Const: Other: Constitutional : Awake, interactive, not in distress Neck : Normal inspection, Supple Cardiovascular : RRR, no JVP, no lower extremity edema Respiratory : good bilateral air entry, no crackles, wheezes or rhonchi Gastrointestinal: soft, lax, Normal bowel sounds, Non tender Skin : Warm, Dry Neurological : Alert & oriented x3, No focal deficit Objective Data Active Medications Acetaminophen (Acetaminophen 325 Mg Tablet) 650 mg PO Q8H PRN PRN Reason: Pain, Mild (Pain Scale 1-3) Last Admin: 01/27/23 22:24 Dose: 650 mg Documented By: CHARLES Atorvastatin Calcium (Atorvastatin Calcium 40 Mg Tablet) 40 mg PO DAILY [facility] Last Admin: 01/28/23 08:13 Dose: 40 mg Documented By: STEVE Cyanocobalamin (Cyanocobalamin (Vitamin B-12) 1,000 Mcg Tablet) 1,000 mcg PO DAILY [facility] Last Admin: 01/28/23 08:13 Dose: 1,000 mcg Documented By: STEVE Dextrose (Dextrose 50 % 25 Gm/50 Ml Syringe) 25 gm IVPUSH Q15M PRN; Protocol PRN Reason: per Hypoglycemia Standing Ord. Diltiazem HCl (Diltiazem Hcl 30 Mg Tablet) 30 mg PO QID [facility]; Protocol Last Admin: 01/28/23 12:40 Dose: 30 mg Documented By: NAFISA Docusate Sodium (Docusate Sodium 100 Mg Capsule) 100 mg PO DAILY PRN PRN Reason: Constipation Docusate Sodium (Docusate Sodium 100 Mg Capsule) 100 mg PO BID [facility] Last Admin: 01/28/23 08:13 Dose: 100 mg Documented By: STEVE Furosemide (Furosemide 20 Mg Tablet) 20 mg PO DAILY [facility]; Protocol Last Admin: 01/28/23 08:14 Dose: 20 mg Documented By: STEVE Glucose (Glucose Gel 15 Gm Gel..Gram.) 15 gm PO Q15M PRN; Protocol PRN Reason: per Hypoglycemia Standing Ord. Ceftriaxone Sodium 1 gm/ (Sodium Chloride) 50 mls @ 100 mls/hr IV Q24H [facility] Last Infusion: 01/28/23 01:45 Dose: Infused Documented By: CHARLES Metronidazole (Flagyl) 500 mg in 100 mls @ 100 mls/hr IV Q8H [facility] Last Infusion: 01/28/23 12:30 Dose: Infused Documented By: NAFISA Insulin Human Lispro (Insulin Lispro 100 Unit/Ml 3 Ml Vial) 0 unit SUBCUT QIDACHS [facility]; Protocol Last Admin: 01/28/23 11:40 Dose: Not Given Documented By: NAFISA Non-Admin Reason: No Insulin Coverage Loratadine (Loratadine 10 Mg Tablet) 10 mg PO DAILY PRN PRN Reason: rash Lorazepam (Lorazepam 0.5 Mg Tablet) 0.5 mg PO TID PRN PRN Reason: anxiety Last Admin: 01/28/23 09:49 Dose: 0.5 mg Documented By: STEVE Multivitamins/Vitamin C (Multivitamin Tablet) 1 tab PO DAILY [facility] Last Admin: 01/28/23 08:14 Dose: 1 tab Documented By: STEVE Omeprazole (Omeprazole 20 Mg Calista.) 20 mg PO DAILY [facility] Last Admin: 01/28/23 08:14 Dose: 20 mg Documented By: STEVE Ondansetron HCl (Ondansetron Hcl 4 Mg/2 Ml Vial) 4 mg IVPUSH Q8H PRN PRN Reason: Nausea and Vomiting Phenytoin Sodium (Phenytoin Sodium Extended 100 Mg Capsule) 300 mg PO BID [facility] Last Admin: 01/28/23 08:13 Dose: 300 mg Documented By: STEVE Sodium Chloride (0.9 % Sodium Chloride Flush 3 Ml Syringe) 3 ml IVFLUSH QSHIFT [facility] Last Admin: 01/28/23 08:14 Dose: 3 ml Documented By: STEVE Tizanidine HCl (Tizanidine Hcl 4 Mg Tablet) 4 mg PO Q8H PRN PRN Reason: muscle spasticity Last Admin: 01/27/23 22:24 Dose: 4 mg Documented By: CHARLES Triamcinolone Acetonide (Triamcinolone Acet 0.5 % Cream 15 Gm Tube) 1 appl TOPICAL TID [facility]; Protocol Last Admin: 01/28/23 12:42 Dose: Not Given Documented By: NAFISA Non-Admin Reason: not avail Warfarin Sodium (Warfarin Sodium 5 Mg Tablet) 5 mg PO DAILY@1800 [facility] Last Admin: 01/27/23 17:57 Dose: 5 mg Documented By: DOTTIE Labs 01/28/23 06:09 01/28/23 06:09 Labs: Laboratory Results - last 24 hr 01/27/23 01/27/23 01/28/23 15:49 20:55 06:09 MCV 103.1 H MCH 33.9 H MCHC 32.9 RDW 13.1 Plt Count 81 L MPV 10.5 Absolute Nucleated RBC 0.000 Nucleated RBC % (auto) 0.0 PT 15.9 H D INR 1.3 H Anion Gap 10 L Estim Creat Clear Calc 71.2 Estimated GFR > 60 POC Glucose 110 131 H Fasting Glucose 89 Calcium 8.7 Magnesium 1.8 Total Bilirubin 2.0 H Direct Bilirubin 1.6 H AST 51 H ALT 98 H Alkaline Phosphatase 61 Total Protein 5.2 L Albumin 2.9 L TSH 7.25 H 01/28/23 01/28/23 07:40 11:06 MCV MCH MCHC RDW Plt Count MPV Absolute Nucleated RBC Nucleated RBC % (auto) PT INR Anion Gap Estim Creat Clear Calc Estimated GFR POC Glucose 90 144 H Fasting Glucose Calcium Magnesium Total Bilirubin Direct Bilirubin AST ALT Alkaline Phosphatase Total Protein Albumin TSH Microbiology Microbiology Results: Microbiology 01/26/23 00:51 Blood Culture - Final Blood - Venous Klebsiella oxytoca 01/25/23 21:45 Blood Culture - Preliminary Blood - Venous Klebsiella oxytoca Prelim: GPR Gram Stain only Assessment and Plan (1) Atrial fibrillation with rapid ventricular response: Status: Acute (2) Acute pancreatitis: Status: Acute (3) Acute cholangitis: Status: Acute Plan 77F PMH DVT, factor V leiden, DM, HTN, hld, presented with abd pain, fevers severe sepsis due to acute cholangitis (s/p ccy) and acute pancreatitis complicated by GNR bacteremia continue rocephin, flagyl follow up cultures mrcp with no obstruction (suspect passed stone) DC LR advance diet as tolerated New Onset Afib w RvR converted back to sinus rhythm Cardizem 30 mg qid for now Hold on AC per cardiology unless back to Afib again Pending Echo DM insulin history of dvt/factor v coumadin, monitor inr morbid obesity weight loss dnr/dni reason for continued hospitalization: pending final cultures, advancing diet, New Afib w RvR control, safe discharge plan. Time Spent With Patient Time: Total time managing care of this patient today ____ minutes. Quality Stroke Does the patient have a stroke diagnosis?: No VTE Prior VTE?: No VTE Risk Level:: Medical - moderate - high VTE Device Contraindication: Treatment Not Indicated VTE Drug Contraindication: N/A - Med Ordered
[2023-01-28 16:11] LABS: Glucose, Whole Blood 125 mg/dL (60-115)
[2023-01-28 16:58] LABS: Appearance Urine Cloudy; Color Urine Dark Yellow; Glucose Urine UA Negative (Negative); Leukocyte Esterase Urine Small (1+) (Negative); Nitrite Urine Negative (Negative); Specific Gravity - Urine 1.015 (1.005-1.025); UMIC TRIGGER UACC YES; Urine Blood Trace (Negative); Urine Ketones Negative (Negative); Urine Protein 30 (1+) mg/dL (Neg-Trace)
[2023-01-28 17:00] LABS: Bacteria Urine None Seen (None Seen); Hyaline Casts Urine 0-2 /LPF (0-2); UACC Culture Trigger YES
[2023-01-28] MEDS: Warfarin Sodium 5 MG TABLET PO (17:55)
[2023-01-28 19:39] LABS: Glucose, Whole Blood 133 mg/dL (60-115)
[2023-01-28] MEDS: TiZANidine HCL 4 MG TABLET PO (21:03)
[2023-01-29] MEDS: cefTRIAXone sodium 1 GM in 0.9 % Sodium Chloride 50 ML IV (01:44)
[2023-01-29 03:09] VITALS: BP 120/58; PULSE 80; RESP 20; TEMP 37.3; O2SAT 93
[2023-01-29] MEDS: metroNIDAZOLE/NS 500 MG/100 ML PIGGYBACK 100 MG IV ×3 (05:03→20:19)
[2023-01-29 07:23] LABS: INTERNATIONAL NORM RATIO 1.1 (0.9-1.1); Prothrombin Time 13.6 SEC (11.1-13.3)
[2023-01-29 07:24] VITALS: BP 157/69; PULSE 82; RESP 18; TEMP 37; O2SAT 96
[2023-01-29 07:40] LABS: Glucose, Whole Blood 99 mg/dL (60-115)
[2023-01-29 07:44] LABS: Alanine Aminotransferase 65 U/L (0-31); Albumin Level 2.8 g/dL (3.5-5.0); Alkaline Phosphatase 113 U/L (39-117); Aspartate Amino Transferase 29 U/L (5-31); Bilirubin Total 1.7 mg/dL (0.0-1.0); Total Protein 5.4 g/dL (6.5-8.0)
[2023-01-29] MEDS: Docusate Sodium 100 MG CAPSULE PO (08:59)
[2023-01-29] MEDS: Cyanocobalamin (Vitamin B-12) 1,000 MCG TABLET 1000 MCG PO (08:59)
[2023-01-29] MEDS: Atorvastatin Calcium 40 MG TABLET PO (08:59)
[2023-01-29] MEDS: dilTIAZem HCL 30 MG TABLET PO (08:59)
[2023-01-29] MEDS: Acetaminophen 325 MG TABLET 650 MG PO ×2 (09:00→17:36)
--- NOTE | 2023-01-29 10:20 | PM.PNCARD ---
Subjective Subjective Date of Service: 01/29/23 Interval history: She states she feels okay from cardiac. No specific symptoms. Review of Systems Review of Systems Yes all other systems are reviewed and are negative Constitutional: Reports as per HPI and Reports no additional constitutional complaints Eyes: Reports as per HPI and Denies no additional eye complaints Denies system reviewed and no additional complaints, except as documented and Reports as per HPI Cardiovascular: Reports as per HPI, Reports no additional cardiovascular complaints, Denies acrocyanosis, Denies cool extremities, Denies chest pain, Denies leg edema, Denies lightheadedness, Denies palpitations and Denies dyspnea Respiratory: Reports as per HPI, Denies no additional respiratory complaints and Denies dyspnea Gastrointestinal: Reports as per HPI and Denies no additional gastrointestinal complaints Genitourinary: Reports as per HPI Musculoskeletal: Reports no additional musculoskeletal complaints and Reports as per HPI Skin/Breast: Reports system reviewed and no additional complaints, except as docu Reports system reviewed and no additional complaints, except as documented and Reports as per HPI Psychiatric: Reports no additional psychiatric complaints and Reports as per HPI Endocrine: Reports no additional endocrine complaints, Reports as per HPI and Denies palpitations Hematologic/Lymphatic: Reports no additional hematologic/lymphatic complaints and Reports as per HPI Allergic/Immunologic: Reports no additional allergic/immunologic complaints and Reports as per HPI Physical Exam Vital Signs: Last Vital Signs Temp 98.6 F 01/29/23 07:24 Pulse 82 01/29/23 07:24 Resp 18 01/29/23 07:24 BP 157/69 H 01/29/23 07:24 Pulse Ox 96 01/29/23 07:24 O2 Del Method Room Air 01/29/23 07:24 O2 Flow Rate 1 01/27/23 07:33 BMI result Body Mass Index 40.8 Const General: comfortable and no acute distress Orientation/consciousness: patient oriented x3 HEENT Other: Unremarkable Head: Yes normal to inspection Neck Neck: Yes normal visual inspection Chest Chest palpation & inspection: normal inspection of the chest Resp Auscultation: clear to auscultation bilaterally Cardio Palpation: normal PMI Heart sounds: S1 normal heart sound present, S2 normal heart sound present, no gallops, Murmur heart sound present systolic II/ and at the right sternal border and no rubs GI Palpation (GI): Soft to palpation Back/Spine/Pelvis Other: unremarkable Skin General skin exam: no rashes or lesions noted Neuro General: patient oriented x3 Extrem General: Yes normal to inspection Psych Mental Status: mental status grossly normal Objective Labs and Meds 01/28/23 06:09 01/28/23 06:09 Lab results: Laboratory Results - last 24 hr 01/28/23 01/28/23 01/28/23 06:09 11:06 16:06 Hold Purple Top PT INR POC Glucose 144 H 125 H Total Bilirubin Direct Bilirubin AST ALT Alkaline Phosphatase Total Protein Albumin TSH 7.25 H Urine Color Urine Appearance Urine pH Ur Specific [place] Urine Protein Urine Glucose (UA) Urine Ketones Urine Blood Urine Nitrite Ur Leukocyte Esterase Urine RBC Urine WBC Ur Squamous Epith Cells Urine Bacteria Hyaline Casts 01/28/23 01/28/23 01/29/23 16:45 19:35 06:52 Hold Purple Top SEE NOTE PT 13.6 H INR 1.1 POC Glucose 133 H Total Bilirubin 1.7 H Direct Bilirubin 1.0 H AST 29 ALT 65 H Alkaline Phosphatase 113 Total Protein 5.4 L Albumin 2.8 L TSH Urine Color Dark Yellow Urine Appearance Cloudy Urine pH 7.0 Ur Specific [place] 1.015 Urine Protein 30 (1+) H Urine Glucose (UA) Negative Urine Ketones Negative Urine Blood Trace H Urine Nitrite Negative Ur Leukocyte Esterase Small (1+) H Urine RBC 11-20 H Urine WBC 6-10 H Ur Squamous Epith Cells 11-20 Urine Bacteria None Seen Hyaline Casts 0-2 01/29/23 07:25 Hold Purple Top PT INR POC Glucose 99 Total Bilirubin Direct Bilirubin AST ALT Alkaline Phosphatase Total Protein Albumin TSH Urine Color Urine Appearance Urine pH Ur Specific [place] Urine Protein Urine Glucose (UA) Urine Ketones Urine Blood Urine Nitrite Ur Leukocyte Esterase Urine RBC Urine WBC Ur Squamous Epith Cells Urine Bacteria Hyaline Casts Progress Note: A&P Assessment and plan (1) Atrial fibrillation with rapid ventricular response: Status: Acute Plan Episode of atrial fibrillation rapid rate in the setting of acute medical illness. Currently back in normal sinus rhythm. Duration of arrhythmia just about an hour or less. Echocardiogram with LVEF 55-60%. Moderate septal hypertrophy and mild aortic stenosis. May take diltiazem for the atrial fibrillation. She does not specifically need the anticoagulation for the atrial fibrillation but seems that she already has factor 5 Leiden and hence on warfarin. No changes with that. Discussed echocardiogram findings with patient. Advised that we can arrange outpatient follow-up but she states that her co-pay is too expensive and she may not be able to afford. In that case, she can call us as and when needed. Discussed with Dr. rFanco. Time Spent With Patient Time: Total time managing care of this patient today ____ minutes. Progress Note: Quality Stroke Does the patient have a stroke diagnosis?: No Procedures Date of Service Date of Service: 01/29/23
--- NOTE | 2023-01-29 10:42 | MHC.CM.PN ---
Per ROUNDS discussion, Patient is medically cleared for dc to STR/SNF; CM awaits a SNF bed offer and [employer] auth. CM will follow.
[2023-01-29 11:23] VITALS: BP 135/63; PULSE 84; RESP 20; TEMP 37.4; O2SAT 94
--- NOTE | 2023-01-29 12:46 | MHC.CM.PN ---
CM met with Patient and her Brother at bedside to discuss PT's recommendation for STR and SNF bed offers(snfs that have beds and accept Patient's insurance). Patient and Brother have accepted the bed offer from [facility] and CM has asked SNF to initiate the insurance auth process. CM will follow.
--- NOTE | 2023-01-29 13:12 | MHC.CM.PN ---
CM has assisted Patient with the completion of a HCP; Patient has named her Brother as her Agent.
--- NOTE | 2023-01-29 15:45 | HO.PM.IMPN ---
Subjective Subjective Date of Service: 01/29/23 Interval History: Seen and evaluated this morning tolerating diet LFT trending down Heart rate better controlled no reported fever or chest pain Review of Systems Review of Systems: Yes all other systems are reviewed and are negative Physical Exam Vital Signs: Vital Signs: Last Vital Signs Temp 99.4 F 01/29/23 11:23 Pulse 84 01/29/23 11:23 Resp 20 01/29/23 11:23 BP 135/63 01/29/23 11:23 Pulse Ox 94 01/29/23 11:23 O2 Del Method Room Air 01/29/23 11:23 O2 Flow Rate 1 01/27/23 07:33 BMI result Body Mass Index 40.8 Const: Other: Constitutional : Awake, interactive, not in distress Neck : Normal inspection, Supple Cardiovascular : RRR, no JVP, no lower extremity edema Respiratory : good bilateral air entry, no crackles, wheezes or rhonchi Gastrointestinal: soft, lax, Normal bowel sounds, Non tender Skin : Warm, Dry Neurological : Alert & oriented x3, No focal deficit Objective Data Active Medications Acetaminophen (Acetaminophen 325 Mg Tablet) 650 mg PO Q8H PRN PRN Reason: Pain, Mild (Pain Scale 1-3) Last Admin: 01/29/23 09:00 Dose: 650 mg Documented By: AMY Atorvastatin Calcium (Atorvastatin Calcium 40 Mg Tablet) 40 mg PO DAILY [facility] Last Admin: 01/29/23 08:59 Dose: 40 mg Documented By: AMY Cyanocobalamin (Cyanocobalamin (Vitamin B-12) 1,000 Mcg Tablet) 1,000 mcg PO DAILY [facility] Last Admin: 01/29/23 08:59 Dose: 1,000 mcg Documented By: AMY Dextrose (Dextrose 50 % 25 Gm/50 Ml Syringe) 25 gm IVPUSH Q15M PRN; Protocol PRN Reason: per Hypoglycemia Standing Ord. Diltiazem HCl (Diltiazem Hcl 30 Mg Tablet) 30 mg PO QID [facility]; Protocol Last Admin: 01/29/23 12:05 Dose: 30 mg Documented By: AMY Docusate Sodium (Docusate Sodium 100 Mg Capsule) 100 mg PO DAILY PRN PRN Reason: Constipation Docusate Sodium (Docusate Sodium 100 Mg Capsule) 100 mg PO BID [facility] Last Admin: 01/29/23 08:59 Dose: 100 mg Documented By: AMY Enoxaparin Sodium (Enoxaparin Sodium 100 Mg/Ml Syringe) 100 mg 1 mg/kg (100 mg) SUBCUT Q12H [facility] Last Admin: 01/29/23 09:00 Dose: 100 mg Documented By: AMY Furosemide (Furosemide 20 Mg Tablet) 20 mg PO DAILY [facility]; Protocol Last Admin: 01/29/23 08:59 Dose: 20 mg Documented By: AMY Glucose (Glucose Gel 15 Gm Gel..Gram.) 15 gm PO Q15M PRN; Protocol PRN Reason: per Hypoglycemia Standing Ord. Ceftriaxone Sodium 1 gm/ (Sodium Chloride) 50 mls @ 100 mls/hr IV Q24H [facility] Last Infusion: 01/29/23 02:51 Dose: Infused Documented By: AGA Metronidazole (Flagyl) 500 mg in 100 mls @ 100 mls/hr IV Q8H [facility] Last Infusion: 01/29/23 13:06 Dose: Infused Documented By: AMY Insulin Human Lispro (Insulin Lispro 100 Unit/Ml 3 Ml Vial) 0 unit SUBCUT QIDACHS [facility]; Protocol Last Admin: 01/29/23 11:49 Dose: Not Given Documented By: AMY Non-Admin Reason: No Insulin Coverage Loratadine (Loratadine 10 Mg Tablet) 10 mg PO DAILY PRN PRN Reason: rash Lorazepam (Lorazepam 0.5 Mg Tablet) 0.5 mg PO TID PRN PRN Reason: anxiety Last Admin: 01/28/23 18:01 Dose: 0.5 mg Documented By: NAFISA Multivitamins/Vitamin C (Multivitamin Tablet) 1 tab PO DAILY [facility] Last Admin: 01/29/23 08:59 Dose: 1 tab Documented By: AMY Omeprazole (Omeprazole 20 Mg Capsule.Dr) 20 mg PO DAILY [facility] Last Admin: 01/29/23 08:59 Dose: 20 mg Documented By: AMY Ondansetron HCl (Ondansetron Hcl 4 Mg/2 Ml Vial) 4 mg IVPUSH Q8H PRN PRN Reason: Nausea and Vomiting Phenytoin Sodium (Phenytoin Sodium Extended 100 Mg Capsule) 300 mg PO BID [facility] Last Admin: 01/29/23 08:59 Dose: 300 mg Documented By: AMY Sodium Chloride (0.9 % Sodium Chloride Flush 3 Ml Syringe) 3 ml IVFLUSH QSHIFT [facility] Last Admin: 01/29/23 09:01 Dose: 3 ml Documented By: AMY Tizanidine HCl (Tizanidine Hcl 4 Mg Tablet) 4 mg PO Q8H PRN PRN Reason: muscle spasticity Last Admin: 01/28/23 21:03 Dose: 4 mg Documented By: AGA Triamcinolone Acetonide (Triamcinolone Acet 0.5 % Cream 15 Gm Tube) 1 appl TOPICAL TID [facility]; Protocol Last Admin: 01/29/23 09:12 Dose: Not Given Documented By: AMY Non-Admin Reason: Med Not Available Warfarin Sodium (Warfarin Sodium 5 Mg Tablet) 5 mg PO DAILY@1800 [facility] Last Admin: 01/28/23 17:55 Dose: 5 mg Documented By: ADELAIDELA Labs 01/28/23 06:09 01/28/23 06:09 Labs: Laboratory Results - last 24 hr 01/28/23 01/28/23 01/28/23 16:06 16:45 19:35 Hold Purple Top PT INR POC Glucose 125 H 133 H Total Bilirubin Direct Bilirubin AST ALT Alkaline Phosphatase Total Protein Albumin Urine Color Dark Yellow Urine Appearance Cloudy Urine pH 7.0 Ur Specific [place] 1.015 Urine Protein 30 (1+) H Urine Glucose (UA) Negative Urine Ketones Negative Urine Blood Trace H Urine Nitrite Negative Ur Leukocyte Esterase Small (1+) H Urine RBC 11-20 H Urine WBC 6-10 H Ur Squamous Epith Cells 11-20 Urine Bacteria None Seen Hyaline Casts 0-2 Urine Yeast 01/29/23 01/29/23 01/29/23 06:52 07:25 11:12 Hold Purple Top SEE NOTE PT 13.6 H INR 1.1 POC Glucose 99 137 H Total Bilirubin 1.7 H Direct Bilirubin 1.0 H AST 29 ALT 65 H Alkaline Phosphatase 113 Total Protein 5.4 L Albumin 2.8 L Urine Color Urine Appearance Urine pH Ur Specific [place] Urine Protein Urine Glucose (UA) Urine Ketones Urine Blood Urine Nitrite Ur Leukocyte Esterase Urine RBC Urine WBC Ur Squamous Epith Cells Urine Bacteria Hyaline Casts Urine Yeast 01/29/23 11:15 Hold Purple Top PT INR POC Glucose Total Bilirubin Direct Bilirubin AST ALT Alkaline Phosphatase Total Protein Albumin Urine Color Yellow Urine Appearance Clear Urine pH 7.0 Ur Specific [place] 1.010 Urine Protein Negative Urine Glucose (UA) Negative Urine Ketones Negative Urine Blood Negative Urine Nitrite Negative Ur Leukocyte Esterase Moderate (2+) H Urine RBC 0-2 Urine WBC 6-10 H Ur Squamous Epith Cells 6-10 Urine Bacteria None Seen Hyaline Casts 0-2 Urine Yeast Present Microbiology Microbiology Results: Microbiology 01/28/23 17:01 Urine Culture - Preliminary Urine clean catch - Urine xiong top Culture too young to evaluate. 01/25/23 21:45 Blood Culture - Preliminary Blood - Venous Klebsiella oxytoca Prelim: GPR Gram Stain only Assessment and Plan (1) Atrial fibrillation with rapid ventricular response: Status: Acute (2) Acute pancreatitis: Status: Acute (3) Acute cholangitis: Status: Acute Plan 77F PMH DVT, factor V leiden, DM, HTN, hld, presented with abd pain, fevers severe sepsis due to acute cholangitis (s/p ccy) and acute pancreatitis complicated by GNR bacteremia continue rocephin, DC flagyl cultures growing Klebsiella mrcp with no obstruction (suspect passed stone) DC LR advance diet as tolerated to regular Physical deconditioning PT rec SNF placement New Onset Afib w RvR converted back to sinus rhythm Cardizem 30 mg qid for now On Warfarin as AC Echo showing EF 55-60% DM insulin history of dvt/factor v coumadin, monitor inr morbid obesity weight loss dnr/dni DVT PPx Warfarin reason for continued hospitalization: pending final cultures, advancing diet, New Afib w RvR control, safe discharge plan. Time Spent With Patient Time: Total time managing care of this patient today ____ minutes. Quality Stroke Does the patient have a stroke diagnosis?: No VTE Prior VTE?: No VTE Risk Level:: Medical - moderate - high VTE Device Contraindication: Treatment Not Indicated VTE Drug Contraindication: N/A - Med Ordered
[2023-01-29 15:47] VITALS: BP 142/67; PULSE 83; RESP 20; TEMP 36.9; O2SAT 93
--- NOTE | 2023-01-29 17:45 | PC.NURSE ---
1730: pt reported L chest pain 07/04 but said I might up pull on something before . Medicated with PRN tylenol. notified. SR on tele. cont to monitor
[2023-01-29 19:03] VITALS: BP 179/74; PULSE 84; RESP 22; TEMP 37.1; O2SAT 93
[2023-01-29] MEDS: Triamcinolone Acet 0.5 % Cream 15 GM TUBE 1 APPL TOPICAL (20:19)
[2023-01-29 23:10] VITALS: BP 161/72; PULSE 83; RESP 20; TEMP 36.6; O2SAT 92
[2023-01-30 04:00] VITALS: BP 176/81; PULSE 87; RESP 18; TEMP 37.1; O2SAT 97
[2023-01-30] MEDS: TiZANidine HCL 4 MG TABLET PO (06:00)
[2023-01-30] MEDS: Acetaminophen 325 MG TABLET 650 MG PO (06:01)
[2023-01-30 07:32] VITALS: BP 157/67; PULSE 79; RESP 16; TEMP 37.1; O2SAT 94
[2023-01-30] MEDS: Atorvastatin Calcium 40 MG TABLET PO (08:14)
[2023-01-30] MEDS: Cyanocobalamin (Vitamin B-12) 1,000 MCG TABLET 1000 MCG PO (08:14)
[2023-01-30] MEDS: Triamcinolone Acet 0.5 % Cream 15 GM TUBE 1 APPL TOPICAL (08:17)
--- NOTE | 2023-01-30 11:20 | MHC.CM.PN ---
PT MEDICALLY CLEARED TO [facility] AT [facility] HAS RECEIVED INSURANCE AUTH TRANSPORT BOOKED FOR 1300 HOURS WITH SOFIE CHRISTIAN PT, RN, MD, AWARE
[2023-01-30 11:38] VITALS: BP 122/59; PULSE 77; RESP 18; TEMP 36.1; O2SAT 94
--- NOTE | 2023-01-30 12:10 | PM.DS ---
DS: Providers Provider Date of Service: 01/30/23 Date of admission: 01/26/23 01:48 Primary care physician: Jerry Spain MD Consults: 01/26/23 01:43 Consult to Gastroenterology Routine Consulting Provider: Tee Campbell Reason for consultation: cholangitis? 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 Patient is here with her brother. Patient has nausea, 1 episode of vomiting, some diarrhea, no chest pain, no palpitations, no urinary symptoms and no lower extremity edema. Patient was retaining on arrival, and was found to have over 1000 cc of urine retained On arrival to the ED patient found to have a fever of 104.7, heart rate of 112, respiratory rate of 26, blood pressure of 166/60, satting 88% on room air Labs are significant for WBC count of 11.4, INR of 2.5, lactic acid of 5.5, total bili of 1.5, AST of 345, ALT of 161, triglycerides of 160, lipase over 300, Abdominal pelvic CT shows stranding in the vicinity of pancreatic head and adjacent duodenum, secondary to pancreatitis versus duodenitis, that the fine foci of mild hypoattenuation in the lateral right hepatic lobe Patient started on antibiotics and will be admitted for further management Hospital course # severe sepsis due to acute cholangitis (s/p ccy) and acute pancreatitis complicated by GNR bacteremia Abdominal pelvic CT shows stranding in the vicinity of pancreatic head and adjacent duodenum, secondary to pancreatitis. Treated with IV fluids, IV rocephin and flagyl as blood cultures evantually grew Klebsiella. MRCP with no obstruction (suspect passed stone) as she was seen by dr Campbell from GI who recommended medical management with antibiotics and advance diet as tolerated which she did. # Physical deconditioning PT rec SNF placement # New Onset Afib w RvR during her hospital stay. brief period. converted back to sinus rhythm. Seen by cardiology as she tolerated Cardizem 120 CD well. She is on Warfarin originally. Goal INR 2-3. Echo showed EF 55-60% Continue Ceftin as prescribed for infection treatment. Continue Cardizem for heart rate control. Follow with cardiology as outpatient. Time Spent with Patient Time attestation: Total time managing care of this patient today ____ minutes. Discharge coordination time: Greater than 30 minutes Quality: Safe Use of Opioids Does Pt have an Active Cancer Diagnosis on the Problem List?: No Quality: Stroke Does the patient have a stroke diagnosis?: No Physical Exam Vital Signs: Vital Signs: Last Vital Signs Temp 97.0 F 01/30/23 11:38 Pulse 77 01/30/23 11:38 Resp 18 01/30/23 11:38 BP 122/59 L 01/30/23 11:38 Pulse Ox 94 01/30/23 11:38 O2 Del Method Room Air 01/30/23 11:38 O2 Flow Rate 1 01/27/23 07:33 BMI result Body Mass Index 40.8 Const: Other: Constitutional : Awake, interactive, not in distress Neck : Normal inspection, Supple Cardiovascular : RRR, no JVP, no lower extremity edema Respiratory : good bilateral air entry, no crackles, wheezes or rhonchi Gastrointestinal: soft, lax, Normal bowel sounds, Non tender Skin : Warm, Dry Neurological : Alert & oriented x3, No focal deficit DS: Data Data Completed and Pending Labs on day of discharge: Laboratory Results - last 24 hr 01/29/23 01/29/23 01/29/23 11:15 15:55 19:53 Hold Purple Top PT INR POC Glucose 109 140 H Hold Green Top Urine Color Yellow Urine Appearance Clear Urine pH 7.0 Ur Specific [place] 1.010 Urine Protein Negative Urine Glucose (UA) Negative Urine Ketones Negative Urine Blood Negative Urine Nitrite Negative Ur Leukocyte Esterase Moderate (2+) H Urine RBC 0-2 Urine WBC 6-10 H Ur Squamous Epith Cells 6-10 Urine Bacteria None Seen Hyaline Casts 0-2 Urine Yeast Present 01/30/23 01/30/23 01/30/23 06:46 07:09 11:13 Hold Purple Top SEE NOTE PT 24.0 H D INR 2.0 H POC Glucose 116 H 143 H Hold Green Top See Note Urine Color Urine Appearance Urine pH Ur Specific [place] Urine Protein Urine Glucose (UA) Urine Ketones Urine Blood Urine Nitrite Ur Leukocyte Esterase Urine RBC Urine WBC Ur Squamous Epith Cells Urine Bacteria Hyaline Casts Urine Yeast Preliminary micro results at discharge 01/25/23 21:45 Blood Culture - Preliminary Blood - Venous Klebsiella oxytoca Prelim: GPR Gram Stain only 01/28/23 17:01 Urine Culture - Preliminary Urine clean catch - Urine xiong top Culture too young to evaluate. Imaging MRI - abdomen: Radiologist's impression: ITS Impressions Chest X-Ray 01/25/23 22:49 IMPRESSION: Mild bibasilar atelectasis. No acute pulmonary findings. Abdomen/Pelvis CT 01/25/23 23:57 IMPRESSION: 1. Stranding in the vicinity of the pancreatic head and adjacent duodenum, which could be secondary to pancreatitis or duodenitis. Correlation with laboratory values is recommended. 2. Intrahepatic and extrahepatic biliary ductal prominence, which may be physiologic in the setting of prior cholecystectomy. 3. Ill-defined foci of mild hypoattenuation in the lateral right hepatic lobe measuring up to 1 cm, which would be better assessed with nonemergent dynamic liver MRI. 4. Small hiatal hernia. 5. Colonic diverticulosis. No evidence of diverticulitis. Cholangiopancreatography MRI 01/26/23 21:28 IMPRESSION: Mild intrahepatic and extrahepatic bile duct dilatation. This is consistent with prior biliary disease. This is chronic stable since prior studies. No evidence of choledocholithiasis. Discharge Plan Discharge Anticipated Discharge Date/Time: 01/30/23 11:52 Patient Disposition: Xfer SNF Discharge Diagnosis: Acute pancreatitis Atrial fibrillation , new onset Referrals: [facility] [Outside] Jerry Spain MD [Primary Care Provider] - 1 Week Discharge Medications: New diltiazem HCl [Cardizem CD] 120 mg Capsule,Extended Release 24hr 120 mg PO DAILY Qty: 90 0RF Protocol: Hold for SBP/HR < HOLD for SBP < : 90 HOLD for HR < : 60 cefuroxime axetil 500 mg tablet 500 mg PO BID Qty: 18 0RF Continued (DME) lancing device Misc See Rx Instructions .ROUTE .MEDSUPPLY Qty: 1 8RF Rx Instructions: ACCU-CHECK DARLINE DEVICE ammonium lactate 12 % cream 1 applic topical BID Qty: 140 6RF (DME) lancing device [Adjustable Lancing Device] Misc See Rx Instructions .Route Qty: 1 0RF Rx Instructions: As directed (DME) blood-glucose meter [Accu-Chek Guide Glucose Meter] Misc See Rx Instructions .Route Qty: 1 0RF Rx Instructions: As directed (DME) Blood Glucose Test Strip See Rx Instructions .Route Qty: 50 8RF Rx Instructions: test blood sugar twice a day phenytoin sodium extended 100 mg capsule 300 mg PO BID Qty: 360 8RF warfarin 5 mg tablet 5 mg PO DAILY Qty: 90 3RF Hold Instructions: Resume on 05/22/22. resume warfarin on 05/22/22 Protocol: Dose Management Condition: Thursday (Week One) Dose/Route: 2.5 mg Instruction: 0.5 x 5 mg tablets Condition: Thursday Dose/Route: 5 mg Instruction: 1 x 5 mg tablet Condition: Thursday Dose/Route: 2.5 mg Instruction: 0.5 x 5 mg tablets Condition: Thursday Dose/Route: 5 mg Instruction: 1 x 5 mg tablet Condition: Dose/Route: 2.5 mg Instruction: 0.5 x 5 mg tablets Condition: Thursday Dose/Route: 5 mg Instruction: 1 x 5 mg tablet Condition: Thursday Dose/Route: 2.5 mg Instruction: 0.5 x 5 mg tablets Condition: Thursday (Week Two) Dose/Route: 2.5 mg Instruction: 0.5 x 5 mg tablets Condition: Thursday Dose/Route: 5 mg Instruction: 1 x 5 mg tablet Condition: Thursday Dose/Route: 2.5 mg Instruction: 0.5 x 5 mg tablets Condition: Thursday Dose/Route: 5 mg Instruction: 1 x 5 mg tablet Condition: Dose/Route: 2.5 mg Instruction: 0.5 x 5 mg tablets Condition: Thursday Dose/Route: 5 mg Instruction: 1 x 5 mg tablet Condition: Thursday Dose/Route: 2.5 mg Instruction: 0.5 x 5 mg tablets Protocol Text: Adjustment Start Date: 01/01/23 INR Value: 2.4 INR Date: 01/01/23 Recheck Date: 01/15/23 Additional Instructions: INR is in range continue usual dosing, call us if any new medications or if you are changing warfarin dosing balance greens and reds in diet amlodipine 5 mg tablet 5 mg PO DAILY Qty: 90 8RF atorvastatin 40 mg tablet 40 mg PO DAILY Qty: 90 8RF triamcinolone acetonide 0.5 % cream 1 appl topical TID Qty: 15 3RF lisinopril 40 mg tablet 40 mg PO DAILY Qty: 90 8RF furosemide 20 mg tablet 20 mg PO DAILY Qty: 100 2RF glipizide 5 mg tablet 5 mg PO DAILY Qty: 100 2RF lorazepam 0.5 mg tablet 0.5 mg PO TID PRN (Reason: anxiety) Qty: 90 3RF cetirizine 10 mg tablet 10 mg PO DAILY PRN (Reason: rash) Qty: 14 0RF docusate sodium 100 mg capsule 100 mg PO BID Qty: 20 0RF multivitamin Tablet 1 tab PO DAILY cyanocobalamin (vitamin B-12) 1,000 mcg capsule 1,000 mcg PO DAILY tizanidine 4 mg tablet 4 mg PO Q8H PRN (Reason: muscle spasticity) Qty: 60 3RF (DME) blood-glucose meter Misc See Rx Instructions .ROUTE .MEDSUPPLY Qty: 1 0RF Rx Instructions: TEST 2 TIMES DAILY esomeprazole magnesium [Nexium] 20 mg capsule,delayed release(DR/EC) 20 mg PO DAILY Discharge Orders: Discharge Order (Routine); Ordered 01/30/23 Ordered By: Guevara Franco Diet: Low fat, low cholesterol Activity on Discharge: As tolerated Stand Alone Forms: Patient Portal Discharge page Care Plan Goals: Read below Health Concerns: Read below Plan of Treatment: Read below Assessment: Treated for abdominal infection of cholangitis and pancreatitis with Klebsiella bacteria blood stream infection responded well to treatment with IV antibitoics and IV Fluids. Evaluated by Commissioned Fire Officer as MRCP showed no obstructing stones who believes your symptoms are likely due to a passing stone. You developed rapid irregular heart rhythm called Atrial fibrillation that was evaluated by bolt sawyer and responded to medical management. Continue Ceftin as prescribed for infection treatment. Continue Cardizem for heart rate control. Follow with cardiology as outpatient.
== END 2023-01-30 13:21 | disposition skilled nursing facility (03) | DRG 871 ==
LOC: HO.ED 01-26 01:40 → HO.EDOVER 01-26 01:56 → HO.IMC 01-26 09:45
PROVIDERS: Internal Medicine; Admitting Provider Internal Medicine; Emergency Provider Emergency Medicine Emergency Medical Services; PCP Internal Medicine; Visit Provider Student in an Organized Health Care Education/Training Program
DX: A41.9 Sepsis, unspecified organism (principal); K85.90 Acute pancreatitis without necrosis or infection, unspecified; D68.51 Activated protein C resistance; Z68.41 Body mass index [BMI] 40.0-44.9, adult; K83.09 Other cholangitis; R65.20 Severe sepsis without septic shock; Z66 Do not resuscitate; B96.7 Clostridium perfringens [C. perfringens] as the cause of diseases classified elsewhere; B96.1 Klebsiella pneumoniae [K. pneumoniae] as the cause of diseases classified elsewhere; I48.91 Unspecified atrial fibrillation; E66.01 Morbid (severe) obesity due to excess calories; I10 Essential (primary) hypertension; E11.9 Type 2 diabetes mellitus without complications; Z20.822 Contact with and (suspected) exposure to COVID-19; Z86.718 Personal history of other venous thrombosis and embolism; Z79.84 Long term (current) use of oral hypoglycemic drugs; Z79.899 Other long term (current) drug therapy
CPT/HCPCS: 0241U; 36415; 71045; 74177; 74181; 80048; 80053; 80076; 80307; 81001; 82248; 82947; 83605; 83690; 83735; 84443; 84478; 85025; 85027; 85610; 85730; 86850; 86900; 86901; 87040; 87076; 87077; 87086; 87185; 87186; 87205; 93005; 93306; 97162; 99285; C1758; J0696; J1650; J2270; J2405; J2543; J3430; J3475; P9047; Q9957; Q9967

== ENCOUNTER 2023-01-26 01:48 | Outpatient (BNV) | payer MEDICARE, SELFPAY | END 2023-01-28 07:00 | PROVIDERS: Admitting Provider Internal Medicine; Emergency Provider Emergency Medicine Emergency Medical Services; PCP Internal Medicine; Visit Provider Internal Medicine | DX: I35.0 Nonrheumatic aortic (valve) stenosis (principal) | CPT/HCPCS: 93306 ==

== ENCOUNTER → 2023-01-26 01:48 | Outpatient (BNV) | payer MEDICARE, SELFPAY | PROVIDERS: Admitting Provider Internal Medicine; Emergency Provider Emergency Medicine Emergency Medical Services; PCP Internal Medicine; Visit Provider Internal Medicine | DX: I48.91 Unspecified atrial fibrillation (principal); K85.90 Acute pancreatitis without necrosis or infection, unspecified; K83.09 Other cholangitis; R78.81 Bacteremia; B96.1 Klebsiella pneumoniae [K. pneumoniae] as the cause of diseases classified elsewhere | CPT/HCPCS: 99223; 99232; 99233; 99239; 99499 ==

== ENCOUNTER → 2023-01-26 01:48 | Outpatient (BNV) | payer MEDICARE, SELFPAY | PROVIDERS: Admitting Provider Internal Medicine; Emergency Provider Emergency Medicine Emergency Medical Services; PCP Internal Medicine; Visit Provider Internal Medicine | DX: I48.91 Unspecified atrial fibrillation (principal) | CPT/HCPCS: 99223; 99232 ==

== ENCOUNTER → 2023-02-09 15:59 | Outpatient (BNVA) | payer MEDICARE, SELFPAY | PROVIDERS: PCP Internal Medicine; Visit Provider Internal Medicine ==

== ENCOUNTER → 2023-02-13 11:50 | Outpatient (BNVA) | payer MEDICARE, SELFPAY | PROVIDERS: PCP Internal Medicine; Visit Provider Internal Medicine ==

== ENCOUNTER → 2023-02-17 14:28 | Outpatient (BNVA) | payer MEDICARE, SELFPAY | PROVIDERS: PCP Internal Medicine; Visit Provider Internal Medicine ==

== ENCOUNTER 2023-02-24 13:53 | Outpatient (AMB) | payer MEDICARE, SELFPAY ==
--- NOTE | 2023-02-24 13:57 | MHC.PC.OV ---
Vital Signs 02/24/23 13:59 Height 5 ft 2 in Weight 198 lb BMI 36.2 BP 136/68 Blood Pressure Location Lt brachial Position Sitting Pulse 75 Pulse Source Pulse Oximeter Pulse Oximetry (%) 98 Oxygen Delivery Method Room Air Intake Visit Reasons: afib concerns Allergies shrimp [SHRIMP] Allergy (Mild, Verified 02/17/23 15:17) HIVES No Known Drug Allergies Allergy (Unknown, Verified 02/17/23 15:17) Unknown Medication List - Last Reconciled 02/25/23 by Jerry Spain MD amlodipine 5 mg PO DAILY ammonium lactate 12% 1 appl topical BID atorvastatin 40 mg PO DAILY blood sugar diagnostic (Blood Glucose Test strips) test blood sugar twice a day blood-glucose meter TEST 2 TIMES DAILY blood-glucose meter (Accu-Chek Guide Glucose Meter) As directed cetirizine 10 mg PO DAILY PRN cyanocobalamin (vitamin B-12) 1,000 mcg PO DAILY diltiazem HCl (Cardizem CD) 120 mg See Protocol PO DAILY docusate sodium 100 mg PO BID esomeprazole magnesium (Nexium) 20 mg PO DAILY furosemide 20 mg PO DAILY glipizide 5 mg PO DAILY lancing device ACCU-CHECK DARLINE DEVICE lancing device (Adjustable Lancing Device) As directed lisinopril 40 mg PO DAILY lorazepam 0.5 mg PO TID PRN multivitamin 1 tab PO DAILY phenytoin sodium extended 300 mg (3 x 100 mg) PO BID tizanidine 4 mg PO Q8H PRN triamcinolone acetonide 0.5% 1 appl topical TID warfarin 5 mg See Protocol PO DAILY Tobacco use date assessed: 11/07/22 Fall risk assessment: 1 Fall in past year Last assessed Fall Risk: 02/24/23 Dental Screening Dental Screen Date: 02/24/23 Did you have a dental visit in the last 12 months?: Yes Did you have a dental problem in the last 6 months where you did not have access to dental care?: No Was dental information given to patient?: Patient has dentist HPI afib concerns HPI Details admitted with cholangitis treated with antibiotics; also developed afib and on rx PFSH Medical History (Updated 02/25/23 @ 12:52 by Jerry Spain MD) Factor V Leiden DVT (deep venous thrombosis) Hyperlipidemia Hypertension Diabetes mellitus with coincident hypertension Surgical History History of lumpectomy of right breast History of appendectomy History of cholecystectomy Family History Father Asthma Mother Diabetes Hypertension Colon cancer Other Substance use disorder Social History Household Members: None Housing: Apartment Do you presently have visiting nurse or other home services: No Alcohol intake: never Patient Tobacco Use Status: Never used Tobacco e-Cigarette/Vaping Use: Never Used Second Hand Smoke Exposure: No Advance Directives Date on File: 02/08/20 service: No Current occupational status: employed Cognitive needs: No Hearing needs: No Vision needs: No Questionnaire Thrive Questionnaire Date Thrive assessed: 01/26/23 JOEL-7 AMB Questionnaire JOEL-7 Date JOEL - 7 assessed: 07/30/22 Source: Developed by Drs. Tee Esqueda, Cami Betts, Zac Arellano and colleagues, with an educational naz from [employer]. Review of Systems Const Denies chills, Denies headache(s) and Denies weight loss ENT Denies headache(s) Card Denies chest pain, Denies syncope, Denies irregular heart rhythm and Denies dyspnea Resp Denies chest congestion, Denies cough and Denies dyspnea GI Denies abdominal pain, Denies change in stool character, Denies nausea and Denies vomiting Musc Denies deformity and Denies joint swelling Neuro Denies syncope and Denies headache(s) Physical exam (Primary Care) Vital Signs: Last Vital Signs Pulse 75 02/24/23 13:59 BP 136/68 02/24/23 13:59 Pulse Ox 98 02/24/23 13:59 Oxygen Delivery Method Room Air 02/24/23 13:59 BMI result Body Mass Index 36.2 Tobacco/Smoking Status: Tobacco use Status Tobacco use date assessed 11/07/22 02/24/23 13:58 Patient Tobacco Use Status Never used Tobacco 02/24/23 13:58 e-Cigarette/Vaping Use Never Used 02/24/23 13:58 Thrive Assessment: Date of Thrive Assessment Date Thrive assessed 01/26/23 02/24/23 13:58 Const General: cooperative, comfortable, no acute distress and alert Neck Neck: Yes no lymphadenopathy Thyroid: Thyroid normal Resp Effort & Inspection: normal respiratory effort Auscultation: clear to auscultation bilaterally Percussion: percussion normal Cardio Jugular venous distension: no JVD Palpation: normal PMI Rate: regular rate Rhythm: regular rhythm Heart sounds: S1 normal heart sound present and S2 normal heart sound present GI Inspection: Yes normal to inspection Palpation (GI): No hepatosplenomegaly present Skin General skin exam: no rashes or lesions noted Extrem General: Yes no clubbing, cyanosis or edema Assessment and Plan Assessment & Plan (1) Atrial fibrillation: Code(s): I48.91 - Unspecified atrial fibrillation Plan: to see cardiology (2) Cholangitis: Code(s): K83.09 - Other cholangitis Plan: to see gi; have labs done Orders: Orders Basic Metabolic Panel 02/24/23 K85.90 - Acute pancreatitis without necrosis or infection, unspecified Amylase 02/24/23 K85.90 - Acute pancreatitis without necrosis or infection, unspecified Coding Level of Care Code Est Pt Level 3 (08903) Diagnoses Atrial fibrillation I48.91 Cholangitis K83.09
[2023-02-24 13:59] VITALS: BP 136/68; PULSE 75; O2SAT 98; BMI 36.2
== END 2023-02-24 14:21 | disposition home or self-care (01) ==
PROVIDERS: PCP Internal Medicine; Visit Provider Internal Medicine
DX: I48.91 Unspecified atrial fibrillation (principal); K83.09 Other cholangitis
CPT/HCPCS: 99213

== ENCOUNTER 2023-02-24 14:27 | Outpatient (REF) | payer MEDICARE, SELFPAY ==
[2023-02-24 15:08] LABS: MANUAL DIFF FLAG NO
[2023-02-24 15:48] LABS: Basophils Percent Auto 0.2 % (0-2); Eosinophils Percent Auto 0.7 % (0-4); Hematocrit 40.1 % (37.0-47.0); Hemoglobin 13.2 g/dl (12.0-16.0); Imm Gran Abs Auto 0.02 X10*3/uL (0.00-0.03); Imm Gran Pct Auto 0.4 % (0.0-0.4); Lymphocytes Absolute Auto 1.3 X10*3/uL (1.2-4.9); Lymphocytes Percent Auto 28.3 % (20-40); Mean Corpuscular HGB Conc 32.9 g/dl (31.0-35.0); Mean Corpuscular Hemoglobin 34.4 pg (27.0-33.0); Mean Corpuscular Volume 104.4 fL (80.0-98.0); Mean Platelet Volume 10.3 fL (9.4-12.3); Monocytes Absolute Auto 0.3 X10*3/uL (0.1-1.2); Monocytes Percent Auto 7.1 % (2-11); Neutrophils Absolute Auto 2.8 x10*3/uL (2.0-8.3); Neutrophils Percent Auto 63.3 % (45-73); Platelet Count 172 X10*3/uL (160-400); Red Blood Count 3.84 X10*6/uL (4.20-5.50); Red Cell Distribution Width 13.6 % (11.0-16.0); White Blood Count 4.5 X10*3/uL (4.8-10.8)
[2023-02-24 15:55] LABS: Estimated Average Glucose 111 mg/dL; Hemoglobin A1C 110.9111 umol/L; Hemoglobin A1c % 5.5 % (<6.0)
[2023-02-24 16:11] LABS: Alanine Aminotransferase 29 U/L (0-31); Albumin Level 3.9 g/dL (3.5-5.0); Alkaline Phosphatase 77 U/L (39-117); Amylase 44 U/L (28-100); Anion Gap 14 (12-20); Aspartate Amino Transferase 23 U/L (5-31); Bilirubin Total 0.4 mg/dL (0.0-1.0); Blood Urea Nitrogen 17 mg/dL (9-16); Calcium 9.5 mg/dL (8.4-10.2); Carbon Dioxide 30 mmol/L (22-29); Chloride 102 mmol/L (96-108); Cholesterol 167 mg/dL (<200); Estimated Glomerular Filt Rate > 60; Glucose Fasting 115 mg/dL (60-99); Glucose Random 115 mg/dL (60-115); HDL Cholesterol 51 mg/dL (>40); LDL Cholesterol Calculated 93 mg/dL (<100); Potassium 4.3 mmol/L (3.3-5.1); Sodium 142 mmol/L (135-145); Total Protein 7.1 g/dL (6.5-8.0); Triglycerides 115 mg/dL (<150)
[2023-02-24 16:25] LABS: Thyroid Stimulating Hormone 2.51 uIU/mL (0.32-4.0)
== END 2023-02-24 14:28 | disposition home or self-care (01) ==
LOC: HO.LAB 14:27
PROVIDERS: PCP Internal Medicine; Visit Provider Internal Medicine
DX: K85.90 Acute pancreatitis without necrosis or infection, unspecified (principal); D64.9 Anemia, unspecified; N28.9 Disorder of kidney and ureter, unspecified; R73.9 Hyperglycemia, unspecified; E78.5 Hyperlipidemia, unspecified; E03.9 Hypothyroidism, unspecified
CPT/HCPCS: 36415; 80048; 80053; 80061; 82150; 83036; 84443; 85025

== ENCOUNTER → 2023-02-25 13:02 | Outpatient (BNVA) | payer MEDICARE, SELFPAY | PROVIDERS: PCP Internal Medicine; Visit Provider Internal Medicine ==

== ENCOUNTER → 2023-03-04 12:00 | Outpatient (BNVA) | payer MEDICARE, SELFPAY | PROVIDERS: PCP Internal Medicine; Visit Provider Internal Medicine ==

== ENCOUNTER 2023-03-06 09:53 | Outpatient (AMB) | payer MEDICARE, SELFPAY ==
--- NOTE | 2023-03-06 09:56 | MHC.OFFVIS ---
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 Accompanied by: Self / Same As Patient Allergies shrimp [SHRIMP] Allergy (Mild, Verified 03/06/23 10:03) HIVES No Known Drug Allergies Allergy (Unknown, Verified 03/06/23 10:03) Unknown Medication List - Last Reconciled 03/06/23 by James Arnold MD amlodipine 5 mg PO DAILY ammonium lactate 12% 1 appl topical BID atorvastatin 40 mg PO DAILY blood sugar diagnostic (Blood Glucose Test strips) test blood sugar twice a day blood-glucose meter TEST 2 TIMES DAILY blood-glucose meter (Accu-Chek Guide Glucose Meter) As directed cyanocobalamin (vitamin B-12) 1,000 mcg PO DAILY diltiazem HCl (Cardizem CD) 120 mg See Protocol PO DAILY docusate sodium 100 mg PO BID esomeprazole magnesium (Nexium) 20 mg PO DAILY furosemide 20 mg PO DAILY glipizide 5 mg PO DAILY lancing device ACCU-CHECK DARLINE DEVICE lancing device (Adjustable Lancing Device) As directed lisinopril 40 mg PO DAILY multivitamin 1 tab PO DAILY phenytoin sodium extended 300 mg PO BID tizanidine 4 mg PO Q8H PRN triamcinolone acetonide 0.5% 1 appl topical TID warfarin 5 mg See Protocol PO DAILY HPI HPI Comments History of Present Illness Details Mary Jane returns for follow-up. She was recently seen in consultation in the hospital. She was actually admitted for severe sepsis, cholangitis and pancreatitis complicated with bacteremia. In that context, she had atrial fibrillation with rapid rate. However, duration is fairly short and just about an hour or so. She was started on diltiazem. Since then, she has essentially been in sinus rhythm. No recurrent arrhythmias of note. Overall, she feels okay. No specific cardiac symptoms. No history of any coronary disease or any cardiac issues. [facility]LY [facility], [facility] Medical History (Updated 03/06/23 @ 11:44 by James Arnold MD) Factor V Leiden DVT (deep venous thrombosis) Hyperlipidemia Hypertension Diabetes mellitus with coincident hypertension Surgical History History of lumpectomy of right breast History of appendectomy History of cholecystectomy Family History Father Asthma Mother Diabetes Hypertension Colon cancer Other Substance use disorder Social History Household Members: None Housing: Apartment Do you presently have visiting nurse or other home services: No Alcohol intake: never Patient Tobacco Use Status: Never used Tobacco e-Cigarette/Vaping Use: Never Used Second Hand Smoke Exposure: No Advance Directives Date on File: 02/08/20 service: No Current occupational status: employed Cognitive needs: No Hearing needs: No Vision needs: No Review of Systems Const Denies weakness ENT Denies dizziness Card Denies chest pain, Denies chest pain with activity, Denies syncope, Denies rapid heart rate, Denies pedal edema, Denies edema, Denies leg edema, Denies lightheadedness, Denies palpitations, Denies dyspnea, Denies dyspnea on exertion and Denies orthopnea Resp Denies cough, Denies dyspnea and Denies dyspnea on exertion GI Denies hematochezia and Denies change in stool character Musc Denies abnormal gait, Denies muscle cramps, Denies muscle weakness, Denies numbness, Denies radiating pain into limb and Denies tingling Neuro Denies abnormal gait, Denies dizziness, Denies syncope, Denies numbness, Denies tingling and Denies weakness Endo Denies palpitations Physical Exam Vital Signs: Last Vital Signs Pulse 81 03/06/23 09:57 BP 106/60 03/06/23 09:57 BMI result Body Mass Index 36.4 Const General: comfortable and no acute distress Orientation/consciousness: patient oriented x3 HEENT Other: Unremarkable Head: Yes normal to inspection Neck Neck: Yes normal visual inspection Chest Chest palpation & inspection: normal inspection of the chest Resp Auscultation: clear to auscultation bilaterally Cardio Palpation: normal PMI Heart sounds: S1 normal heart sound present, S2 normal heart sound present, no gallops, Murmur heart sound present systolic II/ and at the right sternal border and no rubs GI Palpation (GI): Soft to palpation Back/Spine/Pelvis Other: unremarkable Skin General skin exam: no rashes or lesions noted Neuro General: patient oriented x3 Extrem General: Yes normal to inspection Psych Mental Status: mental status grossly normal Assessment & Plan Assessment & Plan (1) PAF (paroxysmal atrial fibrillation): Code(s): I48.0 - Paroxysmal atrial fibrillation Plan One episode of atrial fibrillation lasting for just about an hour in the context of acute medical illness. Echocardiogram with LVEF of 55-60%; moderate septal hypertrophy and mild aortic stenosis. Clinically, she has got absolutely no symptoms from cardiac. May continue diltiazem. She has been on long-term anticoagulation for factor 5 Leiden. If taking amlodipine, may have to stop that. We will do a 7 day Holter to assess for any recurrent atrial arrhythmias. Follow-up after that. Orders: Orders ECG 7 day holter monitor Today I48.91 - Unspecified atrial fibrillation Medications: Changed From tizanidine 4 mg PO Q8H PRN 60 tabs 3RF muscle spasticity To tizanidine 4 mg PO Q8H PRN muscle spasticity From phenytoin sodium extended 300 mg (3 x 100 mg) PO BID 360 caps 8RF To phenytoin sodium extended 300 mg PO BID Coding Level of Care Code Est Pt Level 3 (71683) Diagnoses PAF (paroxysmal atrial fibrillation) I48.0
[2023-03-06 09:57] VITALS: BP 106/60; PULSE 81; BMI 36.4
== END 2023-03-06 10:19 | disposition home or self-care (01) ==
PROVIDERS: PCP Internal Medicine; Visit Provider Internal Medicine
DX: I48.0 Paroxysmal atrial fibrillation (principal)
CPT/HCPCS: 99213

== ENCOUNTER → 2023-03-06 09:53 | Outpatient (BNVA) | payer MEDICARE, SELFPAY | PROVIDERS: PCP Internal Medicine; Visit Provider Internal Medicine | DX: I48.0 Paroxysmal atrial fibrillation (principal) | CPT/HCPCS: 99212 ==

== ENCOUNTER → 2023-03-11 09:40 | Outpatient (BNVA) | payer MEDICARE, SELFPAY | PROVIDERS: PCP Internal Medicine; Visit Provider Internal Medicine ==

== ENCOUNTER → 2023-03-13 11:59 | Outpatient (REF) | payer MEDICARE, SELFPAY ==
--- NOTE | 2023-03-13 12:02 | HM_ITS ---
* Total monitoring time 7 days. * Underlying rhythm is sinus. Average ventricular rate 72/Min. Range 54 to 98/Min. * Very rare supraventricular and ventricular ectopy. * No significant pauses or AV blocks. * No patient markers or diary events. MTDD
== END ==
LOC: HO.CARD 11:59
PROVIDERS: PCP Internal Medicine; Visit Provider Internal Medicine
DX: I48.91 Unspecified atrial fibrillation (principal)
CPT/HCPCS: 93242

== ENCOUNTER → 2023-03-13 12:02 | Outpatient (BNV) | payer MEDICARE, SELFPAY | PROVIDERS: PCP Internal Medicine; Visit Provider Internal Medicine | DX: I47.10 Supraventricular tachycardia, unspecified (principal) | CPT/HCPCS: 93244 ==

== ENCOUNTER → 2023-03-18 10:34 | Outpatient (BNVA) | payer MEDICARE, SELFPAY | PROVIDERS: PCP Internal Medicine; Visit Provider Internal Medicine ==

== ENCOUNTER → 2023-03-25 12:39 | Outpatient (BNVA) | payer MEDICARE, SELFPAY | PROVIDERS: PCP Internal Medicine; Visit Provider Internal Medicine ==

== ENCOUNTER 2023-03-26 13:31 | Outpatient (AMB) | payer MEDICARE, SELFPAY ==
--- NOTE | 2023-03-26 14:08 | MHC.OFFVIS ---
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 Accompanied by: Self / Same As Patient Allergies shrimp [SHRIMP] Allergy (Mild, Verified 03/26/23 14:12) HIVES No Known Drug Allergies Allergy (Unknown, Verified 03/26/23 14:12) Unknown Medication List - Last Reconciled 03/26/23 by ANIYAH Layton ammonium lactate 12% 1 appl topical BID atorvastatin 40 mg PO DAILY blood sugar diagnostic (Blood Glucose Test strips) test blood sugar twice a day blood-glucose meter TEST 2 TIMES DAILY blood-glucose meter (Accu-Chek Guide Glucose Meter) As directed cyanocobalamin (vitamin B-12) 1,000 mcg PO DAILY diltiazem HCl (Cardizem CD) 120 mg See Protocol PO DAILY docusate sodium 100 mg PO BID esomeprazole magnesium (Nexium) 20 mg PO DAILY furosemide 20 mg PO DAILY glipizide 5 mg PO DAILY lancing device ACCU-CHECK DARLINE DEVICE lancing device (Adjustable Lancing Device) As directed lisinopril 40 mg PO DAILY multivitamin 1 tab PO DAILY phenytoin sodium extended 300 mg PO BID tizanidine 4 mg PO Q8H PRN triamcinolone acetonide 0.5% 1 appl topical TID warfarin 5 mg See Protocol PO DAILY HPI follow-up after holter HPI Details Mary Jane is a 77-year-old female past medical history of hypertension, hyperlipidemia, factor V Leiden and on Coumadin, diabetes who was recently admitted to [facility] for sepsis, cholangitis, pancreatitis complicated by bacteremia. She did have an episode of atrial fibrillation with RVR. She was started on diltiazem and converted to sinus rhythm. She has not had known recurrent AFib since that time. She underwent a Holter monitor and echocardiogram and now presents for follow-up. Today she reports she has been feeling very well. She has no reports of heart palpitations, no chest discomfort or shortness of breath. No PND, orthopnea or edema. No lightheadedness, presyncope, syncope, falls. Taking all meds as directed. She has no bleeding issues with her Coumadin. She reports good activity tolerance FOR[facility]LY [facility] Medical History Factor V Leiden DVT (deep venous thrombosis) Hyperlipidemia Hypertension Diabetes mellitus with coincident hypertension Surgical History History of lumpectomy of right breast History of appendectomy History of cholecystectomy Family History Father Asthma Mother Diabetes Hypertension Colon cancer Other Substance use disorder Social History Household Members: None Housing: Apartment Do you presently have visiting nurse or other home services: No Alcohol intake: never Patient Tobacco Use Status: Never used Tobacco e-Cigarette/Vaping Use: Never Used Second Hand Smoke Exposure: No Advance Directives Date on File: 02/08/20 service: No Current occupational status: employed Cognitive needs: No Hearing needs: No Vision needs: No Review of Systems Const All systems reviewed & are unremarkable except as noted in HPI and below ENT Denies dizziness Card Denies chest pain, Denies chest pain at rest, Denies chest pain with activity, Denies rapid heart rate, Denies pedal edema, Denies edema, Denies leg edema, Denies lightheadedness, Denies palpitations, Denies dyspnea, Denies dyspnea on exertion and Denies orthopnea Resp Denies cough, Denies dyspnea and Denies dyspnea on exertion GI Denies hematochezia and Denies change in stool character Musc Denies abnormal gait, Denies limited range of motion, Denies muscle cramps, Denies muscle weakness, Denies numbness, Denies radiating pain into limb, Denies stiffness and Denies tingling Neuro Denies abnormal gait, Denies dizziness, Denies numbness and Denies tingling Endo Denies palpitations Physical Exam Vital Signs: Last Vital Signs Pulse 76 03/26/23 14:12 BP 134/66 03/26/23 14:12 BMI result Body Mass Index 36.7 Const General: cooperative, healthy appearing, comfortable and no acute distress Orientation/consciousness: patient oriented x3 Neck Neck: Yes normal visual inspection Resp Effort & Inspection: normal respiratory effort Auscultation: clear to auscultation bilaterally, no crackles, no rales, no rhonchi and no wheezes Cardio Jugular venous distension: no JVD Rate: regular rate Rhythm: regular rhythm Heart sounds: S1 normal heart sound present, S2 normal heart sound present, no murmurs and no rubs Neuro General: patient oriented x3 Extrem General: Yes normal to inspection, No no pedal edema and No calf tenderness Psych Appearance: grossly normal Mental Status: mental status grossly normal Speech and movement: Normal speech and movement present Assessment & Plan Assessment & Plan (1) PAF (paroxysmal atrial fibrillation): Code(s): I48.0 - Paroxysmal atrial fibrillation Plan: Episode of paroxysmal atrial fibrillation in the setting of acute illness. No recurrent episodes documented or clinically reported. Echocardiogram done 01/28/2023 shows EF 55-60%, moderate septal asymmetric hypertrophy. A Holter monitor done 03/13/2023 for 7 days shows sinus rhythm with average heart rate 72. Today she reports feeling well with no concerning symptoms. She continues on diltiazem 120 mg daily. Chads Vasc score 4. She is already on anticoagulation for management of factor 5 Leiden. She follows with Hematology. Continue current meds without change. Instructed to call this office if she notices any recurrent heart palpitations. Emergency care if ever needed for symptoms. 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 No med changes made Medications: Refilled diltiazem HCl (Cardizem CD) 120 mg See Protocol PO DAILY 90 caps 3RF Patient Instructions: Time spent with chart review, documentation, interview, assessment Coding Level of Care Code Est Pt Level 3 (04109) Diagnoses PAF (paroxysmal atrial fibrillation) I48.0 Factor V deficiency D68.2 Primary hypertension I10 Hypertension type: primary hypertension Time Spent (min) 24
[2023-03-26 14:12] VITALS: BP 134/66; PULSE 76; BMI 36.7
== END 2023-03-26 14:41 | disposition home or self-care (01) ==
PROVIDERS: PCP Internal Medicine; Visit Provider Nurse Practitioner Family
DX: I48.0 Paroxysmal atrial fibrillation (principal); D68.2 Hereditary deficiency of other clotting factors; I10 Essential (primary) hypertension
CPT/HCPCS: 99213

== ENCOUNTER → 2023-03-26 13:31 | Outpatient (BNVA) | payer MEDICARE, SELFPAY | PROVIDERS: PCP Internal Medicine; Visit Provider Nurse Practitioner Family | DX: I48.0 Paroxysmal atrial fibrillation (principal); I10 Essential (primary) hypertension; D68.2 Hereditary deficiency of other clotting factors | CPT/HCPCS: 99212 ==

== ENCOUNTER 2023-03-31 12:06 | Outpatient (AMB) | payer MEDICARE, SELFPAY ==
--- NOTE | 2023-03-31 12:15 | MHC.OFFVISCO ---
Intake Intake Visit Reasons: Anticoagulation Allergies shrimp [SHRIMP] Allergy (Mild, Verified 03/26/23 14:12) HIVES No Known Drug Allergies Allergy (Unknown, Verified 03/26/23 14:12) Unknown Nursing Note INR: 2.7 in therapeutic range Medications and supplements reviewed No changes in health, diet, medications, or supplements, Denies any signs and symptoms of bleeding or bruising or clotting. 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
== END 2023-03-31 12:16 | disposition home or self-care (01) ==
LOC: HO.ACS 12:06
PROVIDERS: PCP Internal Medicine; Visit Provider Internal Medicine
DX: Z79.01 Long term (current) use of anticoagulants (principal)

== ENCOUNTER → 2023-03-31 12:06 | Outpatient (BNVA) | payer MEDICARE, SELFPAY | PROVIDERS: PCP Internal Medicine; Visit Provider Internal Medicine | DX: Z86.718 Personal history of other venous thrombosis and embolism (principal); Z79.01 Long term (current) use of anticoagulants; Z51.81 Encounter for therapeutic drug level monitoring | CPT/HCPCS: 99211 ==

== ENCOUNTER 2023-04-14 13:09 | Outpatient (AMB) | payer MEDICARE, SELFPAY ==
[2023-04-14 13:39] LABS: Prothrombin Time Whole Bld POC 40.7 sec (11.1-13.5); ~PT, ~INR - Anti Coag Clinic 3.4 (0.9-1.1)
--- NOTE | 2023-04-14 13:56 | MHC.OFFVISCO ---
Intake Intake Visit Reasons: Anticoagulation Allergies shrimp [SHRIMP] Allergy (Mild, Verified 03/26/23 14:12) HIVES No Known Drug Allergies Allergy (Unknown, Verified 03/26/23 14:12) Unknown Medication List - Last Reconciled 04/14/23 by Lubna Layne RN ammonium lactate 12% 1 appl topical BID atorvastatin 40 mg PO DAILY blood sugar diagnostic (Blood Glucose Test strips) test blood sugar twice a day blood-glucose meter TEST 2 TIMES DAILY blood-glucose meter (Accu-Chek Guide Glucose Meter) As directed cyanocobalamin (vitamin B-12) 1,000 mcg PO DAILY diltiazem HCl (Cardizem CD) 120 mg See Protocol PO DAILY docusate sodium 100 mg PO BID esomeprazole magnesium (Nexium) 20 mg PO DAILY furosemide 20 mg PO DAILY glipizide 5 mg PO DAILY lancing device ACCU-CHECK DARLINE DEVICE lancing device (Adjustable Lancing Device) As directed lisinopril 40 mg PO DAILY multivitamin 1 tab PO DAILY phenytoin sodium extended 300 mg PO BID tizanidine 4 mg PO Q8H PRN triamcinolone acetonide 0.5% 1 appl topical TID warfarin 5 mg See Protocol PO DAILY Nursing Note INR 3.4 out of therapeutic range Medications and supplements reviewed Patient status: recovered from pancreatitis and VNA services, feeling better , states she occ feels wabbly Hr 60 regular b/p134/62 - enc to discuss with PCP and cardiology, she is to see and endocrin MD in future Medications or supplements: states on b/p meds Diet: improving Denies any signs and symptoms of bleeding or clotting or unusual bruising Bleeding, bruising, clotting discussed Nutritional guidance given: eat greens today and weekly Dose: keep same for now - pt is concerned about blood clots = rather have INR elevated than too low 5mg mwf/ 2.5mg x 4 days F/U INR Date: 2 weeks ?? Patient verbalizing understanding of instructions given. 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
== END 2023-04-14 13:59 | disposition home or self-care (01) ==
LOC: HO.ACS 13:09
PROVIDERS: PCP Internal Medicine; Visit Provider Internal Medicine
DX: Z79.01 Long term (current) use of anticoagulants (principal)

== ENCOUNTER → 2023-04-14 13:09 | Outpatient (BNVA) | payer MEDICARE, SELFPAY | PROVIDERS: PCP Internal Medicine; Visit Provider Internal Medicine | DX: Z86.718 Personal history of other venous thrombosis and embolism (principal); Z79.01 Long term (current) use of anticoagulants; Z51.81 Encounter for therapeutic drug level monitoring | CPT/HCPCS: 85610; 99211 ==

== ENCOUNTER 2023-04-20 17:10 | Emergency (ER) | payer MEDICARE, SELFPAY ==
--- NOTE | ~2023-04-20 | XR_ITS ---
EXAMINATION: XR CHEST CLINICAL INFORMATION: Trauma. Pain. COMPARISON: 01/25/2023. TECHNIQUE: Frontal view of the chest was obtained. FINDINGS: The cardiomediastinal silhouette is stable. There is no focal lung consolidation or pleural effusion. There appear to be fractures of the lateral sixth, seventh and possibly eighth ribs. The soft tissues are unremarkable. XR/XR chest 1V IMPRESSION: 1. No acute cardiopulmonary disease. 2. Fractures of the lateral sixth, seventh and possibly eighth ribs.
--- NOTE | ~2023-04-20 | CT_ITS ---
EXAMINATION: CT CHEST, ABDOMEN AND PELVIS WITH CONTRAST CLINICAL INFORMATION: Chest and abdominal trauma on Coumadin COMPARISON: CT abdomen pelvis 01/25/2023 TECHNIQUE: Multidetector volumetric imaging was performed from the thoracic inlet through the pubic symphysis following administration of 85 mL of Omnipaque 350. Sagittal and coronal reformatted images were obtained on the technologist's workstation. This CT examination was performed using dose optimization techniques as appropriate, variously including the following: *Automated exposure control *Adjustment of mA and/or kV according to patient size (this includes techniques or standardized protocols for targeted exams where dose is matched to indication/reason for exam; i.e. extremities or head) *Use of iterative reconstruction technique DLP: 1331 mGy-cm FINDINGS: CHEST: OSSEUS STRUCTURES: There are fractures of the left lateral 6th, 7th, 8th and 9th ribs. There are fractures of the left posterior 7th, 8th and 9th ribs, hence a flail chest . No scapular or clavicular fractures. No right-sided rib fractures. Degenerative changes are present in the spine without fracture. Lung: Bibasilar atelectasis is present. No consolidations, suspicious lung masses, pneumothorax or hemothorax. Mediastinum: The mediastinum is normal. The central vascular structures are unremarkable. No hilar or mediastinal lymphadenopathy. Coronary Artery Calcium: No significant Pericardium/Pleura: No significant effusion. No pleural mass or thickening. Chest Wall/Axilla: See above regarding rib fractures. No chest wall hematomas. ABDOMEN/PELVIS: Peritoneal Space: No significant free air or free fluid identified. Liver, Gallbladder, Biliary Tree: Patient status post cholecystectomy with mild central biliary ductal dilatation prominent common bile duct which can be normal. The liver is normal in size, shape, and attenuation. No focal hepatic lesion or biliary ductal dilatation is present. No evidence of hepatic laceration. Pancreas: Unremarkable Spleen: Unremarkable with no evidence of splenic rupture. Adrenal Glands: Unremarkable Kidneys and Ureters: The kidneys are normal in size, shape, and attenuation. Benign Bosniak class I renal cysts, both parapelvic and cortical are noted which requires no additional imaging or follow up. No solid renal masses are seen. No hydronephrosis, hydroureter, or calculi seen. No perinephric stranding. Bladder: Unremarkable Gastrointestinal Tract: Stomach is markedly distended with fluid and appears to be food matter. The small and large bowel are unremarkable aside from colonic diverticula without diverticulitis. The appendix is not seen but there is no evidence of appendicitis evidence of appendicitis. Abdominal Wall: No significant hernia is appreciated. Small periumbilical hernias present containing only fat. Lymph Nodes: No retroperitoneal lymphadenopathy Vascular: Calcific atherosclerotic changes are present in the aorta and iliofemoral vessels. There is no evidence of an abdominal aortic aneurysm.. The IVC appears unremarkable. The great saphenous veins are enlarged and appear to demonstrate reflux with varices seen in the upper thighs PELVIC VISCERA: An anteverted uterus is present containing multiple lobulated fibroids. An abnormal adnexal mass is not seen. No free intraperitoneal fluid is present in CT/CT abdomen pelvis w IV con IMPRESSION: 1. Multiple left-sided rib fractures as described above with flail chest. 2. No other evidence of a traumatic injury in abdomen or pelvis. 3. Incidental note made of cholecystectomy, distended stomach, colonic diverticulosis, uterine fibroids and other findings described above. Fleischner guidelines were followed.
[2023-04-20 17:15] VITALS: BP 142/67; PULSE 77; RESP 18; TEMP 36.7; O2SAT 98; BMI 35.0
--- NOTE | 2023-04-20 17:15 | ED.GENADULT ---
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 She was at a [employer] today when she lost her balance and fell. She fell to the left side and struck the left side of her chest against a cabinet. She has a lot of pain on the left side of her chest the left side of her torso generally. An ambulance was called and she was brought to the hospital. Other than the pain on her left side she does not have any other injuries. The pain is quite severe however and is worse with movement or taking a deep breath. Related Data Home Medications Medication Instructions Recorded Confirmed cyanocobalamin (vitamin B-12) 1,000 mcg PO DAILY 02/03/20 04/14/23 1,000 mcg capsule multivitamin 1 tab PO DAILY 02/03/20 04/14/23 esomeprazole magnesium 20 mg 20 mg PO DAILY 01/08/22 04/14/23 capsule,delayed release (Nexium) phenytoin sodium extended 100 mg 300 mg PO BID 03/06/23 04/14/23 capsule tizanidine 4 mg tablet 4 mg PO Q8H PRN muscle spasticity 03/06/23 04/14/23 Previous Rx's Medication Instructions Recorded lancing device #1 ea 02/10/20 ammonium lactate 12 % topical cream 1 applic topical BID #140 grams 03/08/20 blood-glucose meter #1 ea 09/27/21 lancing device (Adjustable Lancing #1 ea 10/15/21 Device) blood-glucose meter (Accu-Chek #1 ea 11/25/21 Guide Glucose Meter) blood sugar diagnostic (Blood #50 ea 11/26/21 Glucose Test strips) docusate sodium 100 mg capsule 100 mg PO BID #20 caps 08/04/22 atorvastatin 40 mg tablet 40 mg PO DAILY #90 tabs 12/22/22 furosemide 20 mg tablet 20 mg PO DAILY #100 tabs 12/22/22 glipizide 5 mg tablet 5 mg PO DAILY #100 tabs 12/22/22 lisinopril 40 mg tablet 40 mg PO DAILY #90 tabs 12/22/22 triamcinolone acetonide 0.5 % 1 appl topical TID #15 grams 02/25/23 topical cream warfarin 5 mg tablet 5 mg PO DAILY #90 tabs 03/04/23 diltiazem HCl 120 mg 120 mg PO DAILY #90 caps 03/26/23 capsule,extended release 24 hr (Cardizem CD) Allergies Allergy/AdvReac Type Severity Reaction Status Date / Time shrimp [SHRIMP] Allergy Mild HIVES Verified 04/20/23 17:13 No Known Drug Allergies Allergy Unknown Unknown Verified 04/20/23 17:13 Review of Systems Review of Systems: Yes all other systems are reviewed and are negative [facility] Past Medical History Medical History Factor V Leiden DVT (deep venous thrombosis) Hyperlipidemia Hypertension Diabetes mellitus with coincident hypertension Surgical History History of lumpectomy of right breast History of appendectomy History of cholecystectomy Family History Family History Father Asthma Mother Diabetes Hypertension Colon cancer Other Substance use disorder Social History Social History Household Members: None Housing: Apartment Do you presently have visiting nurse or other home services: No Alcohol intake: never Patient Tobacco Use Status: Never used Tobacco Smoked in Last 30 Days: No e-Cigarette/Vaping Use: Never Used Second Hand Smoke Exposure: No Use of substances other than those prescribed or required for medical reasons: No Advance Directives: No Advance Directives Information Provided: Yes Advance Directives Date on File: 02/08/20 service: No Current occupational status: employed Cognitive needs: No Hearing needs: No Vision needs: No Physical Exam ED Vital Signs: Vital Signs - 24 hr 04/20/23 17:15 04/20/23 19:37 04/20/23 20:12 Temperature 98.0 F 98.2 F Pulse Rate 77 83 Respiratory Rate 18 18 20 Blood Pressure 142/67 H 150/70 H Pulse Oximetry 98 95 Oxygen Delivery Method Room Air Room Air BMI result Body Mass Index 35.0 Const Other: The patient is somewhat chronically ill-appearing 77-year-old woman who is awake and alert. She seems quite uncomfortable with movements. Mental status is clear. HENMT Other: No signs of trauma to the head or the face. Mucous membranes moist. Eyes Other: Pupils are round equal, conjunctivae are clear Neck Other: No posterior midline C-spine tenderness. No pain with range of motion. C-spine is clinically clear per Chest Other: The patient has significant chest wall tenderness on the left side. Palpation reproduces her pain. Resp Other: Breath sounds seem clear and equal. She has pain with taking a breath. Cardio Other: The patient has a regular rate and rhythm without murmur GI Other: The patient has tenderness in the left upper quadrant. It is difficult to determine if this is abdominal tenderness or simply pulling patient's left chest wall. Skin Other: The skin is intact Neuro Other: The patient is awake and alert. Face is symmetrical. Speech is clear. She moves her extremities symmetrically. She seems grossly neurologically intact. Extrem Other: No signs of injuries to the extremities. Course Course Course Narrative: This is an RME: Additional HPI, ROS, PE not included below will be deferred to primary provider. 77-year-old female presents to the emergency department for evaluation of multiple falls past few days. Patient reports increased weakness, today she fell back at a [employer], hitting her back, chest, having L sided rib pain patient is anticoagulated on Coumadin. No loss of consciousness. Patient reports frequent falls, increasing weakness progressively. Plan labs, imaging, urine. Medications Administered Discontinued Medications Generic Name Dose Route Start Last Admin Trade Name Freq PRN Reason Stop Dose Admin Hydromorphone HCl 0.5 mg 04/20/23 18:46 04/20/23 19:37 Hydromorphone Hcl 0.5 Mg/0.5 Ml Syringe IVPUSH 04/20/23 18:47 0.5 mg ONCE ONE Administration Protocol Iohexol 85 ml 04/20/23 19:21 04/20/23 19:21 Iohexol 350 Mg/Ml 75 Ml Infus..Btl IV 04/20/23 19:22 85 ml ONCE ONE Administration Lidocaine 1 patch 04/20/23 18:35 04/20/23 18:48 Lidocaine 4 % Patch Adh..Patch TRANSDERMA 04/20/23 18:36 1 patch ONCE ONE Administration Protocol Morphine Sulfate 4 mg 04/20/23 18:35 04/20/23 18:48 Morphine Sulfate 4 Mg/Ml Cartridge IVPUSH 04/20/23 18:36 4 mg ONCE ONE Administration Protocol Medical Decision Making Medical Decision Making [facility] Narrative: The patient is a 77-year-old woman with a history of DVTs and Leiden factor 5 deficiency who is on warfarin who fell at a [place] [employer] and struck the left side of her chest against a cabinet. She did not hit her head or injure her neck. She has a great deal of left-sided chest pain worse with breathing or moving. She does not have any other signs of obvious injuries. Chest x-ray showed left-sided rib fractures. CT of the chest which nerves left lateral 6th, 7th, 8th, and 9th rib fractures. Additionally the 7th, 8th, and 9th ribs are also fractured posteriorly. This therefore creates a flail segment. The patient's INR is 3.5. Fortunately the CT of the chest, abdomen, and pelvis do not show associated injuries. The patient was given hydromorphone for pain. Her oxygen saturations were adequate on room air. She is hemodynamically stable. Given the degree of rib fractures and the flail segment I think she should be at a trauma center. I contacted the transfer hotline and spoke to Dr. Pérez who has accepted the patient in transfer. Lab Data 04/20/23 17:42 04/20/23 17:42 Labs: Lab Results 04/20/23 Range/Units 17:42 WBC 6.5 (4.8-10.8) X10*3/uL RBC 4.01 L (4.20-5.50) X10*6/uL Hgb 13.7 (12.0-16.0) g/dl Hct 40.6 (37.0-47.0) % MCV 101.2 H (80.0-98.0) fL MCH 34.2 H (27.0-33.0) pg MCHC 33.7 (31.0-35.0) g/dl RDW 12.8 (11.0-16.0) % Plt Count 166 (160-400) X10*3/uL MPV 9.7 (9.4-12.3) fL Immature Gran % (Auto) 0.8 H (0.0-0.4) % Neut % (Auto) 71.3 (45-73) % Lymph % (Auto) 20.7 (20-40) % Kern % (Auto) 6.5 (2-11) % Eos % (Auto) 0.5 (0-4) % Baso % (Auto) 0.2 (0-2) % Lymph # (Auto) 1.4 (1.2-4.9) X10*3/uL Kern # (Auto) 0.4 (0.1-1.2) X10*3/uL Eos # (Auto) 0.0 (0.0-0.4) X10*3/uL Baso # (Auto) 0.0 (0.0-0.2) X10*3/uL Abs Immat Gran (auto) 0.05 H (0.00-0.03) X10*3/uL Absolute Neuts (auto) 4.7 (2.0-8.3) x10*3/uL Absolute Nucleated RBC 0.000 (0.0-0.012) X10*3/uL Nucleated RBC % (auto) 0.0 (0.0-0.2) /100WBC PT 42.5 H D (11.1-13.3) SEC INR 3.5 H (0.9-1.1) Sodium 142 (135-145) mmol/L Potassium 3.7 (3.3-5.1) mmol/L Chloride 104 (96-108) mmol/L Carbon Dioxide 30 H (22-29) mmol/L Anion Gap 12 (12-20) BUN 16 (9-16) mg/dL Creatinine 0.89 (0.5-1.4) mg/dL Estim Creat Clear Calc 52.8 Estimated GFR > 60 Random Glucose 232 H (60-115) mg/dL Calcium 9.0 (8.4-10.2) mg/dL Magnesium 1.9 (1.6-2.6) mg/dL Total Bilirubin 0.4 (0.0-1.0) mg/dL AST 17 (5-31) U/L ALT 23 (0-31) U/L Alkaline Phosphatase 59 (39-117) U/L Troponin I High Sens < 2.7 (<3.5-17.0) ng/L B-Natriuretic Peptide 32 (<100) pg/mL Total Protein 7.0 (6.5-8.0) g/dL Albumin 4.0 (3.5-5.0) g/dL Lipase 15 (8-78) U/L Ethyl Alcohol < 10 mg/dL Independent Interpretation I performed an independent interpretation of an: EKG Interpretation: EKG at 18:12 shows normal sinus rhythm at 77 beats per minute Critical Care Time Critical Care Time Critical Care Time: Yes Total Critical Care Time: 35 Attestation: The patient was critically ill with a high probability of imminent or life-threatening deterioration. I spent greater than 30 minutes of discontinuous time evaluating the patient, delivering critical care at the bedside, discussing evaluating data with consultants. Critical care time does not include time spent performing separately billable procedures or teaching. Time spent performing critical care with 35 minutes. Discharge Plan Discharge Clinical Impression: Multiple fractures of ribs of left side, Chronic anticoagulation Patient Disposition: [facility] Transfer Details: Trauma transfer to [facility] ER Prescriptions: No Action (DME) lancing device Misc See Rx Instructions .ROUTE .MEDSUPPLY Qty: 1 8RF Rx Instructions: ACCU-CHECK DARLINE DEVICE ammonium lactate 12 % cream 1 applic topical BID Qty: 140 6RF (DME) lancing device [Adjustable Lancing Device] Misc See Rx Instructions .Route Qty: 1 0RF Rx Instructions: As directed (DME) blood-glucose meter [Accu-Chek Guide Glucose Meter] Misc See Rx Instructions .Route Qty: 1 0RF Rx Instructions: As directed (DME) Blood Glucose Test Strip See Rx Instructions .Route Qty: 50 8RF Rx Instructions: test blood sugar twice a day atorvastatin 40 mg tablet 40 mg PO DAILY Qty: 90 8RF lisinopril 40 mg tablet 40 mg PO DAILY Qty: 90 8RF furosemide 20 mg tablet 20 mg PO DAILY Qty: 100 2RF glipizide 5 mg tablet 5 mg PO DAILY Qty: 100 2RF triamcinolone acetonide 0.5 % cream 1 appl topical TID Qty: 15 3RF warfarin 5 mg tablet 5 mg PO DAILY Qty: 90 3RF Hold Instructions: Resume on 05/22/22. resume warfarin on 05/22/22 Protocol: Dose Management Condition: Thursday (Week One) Dose/Route: 2.5 mg Instruction: 0.5 x 5 mg tablets Condition: Thursday Dose/Route: 5 mg Instruction: 1 x 5 mg tablet Condition: Thursday Dose/Route: 2.5 mg Instruction: 0.5 x 5 mg tablets Condition: Thursday Dose/Route: 5 mg Instruction: 1 x 5 mg tablet Condition: Dose/Route: 2.5 mg Instruction: 0.5 x 5 mg tablets Condition: Thursday Dose/Route: 5 mg Instruction: 1 x 5 mg tablet Condition: Thursday Dose/Route: 2.5 mg Instruction: 0.5 x 5 mg tablets Condition: Thursday (Week Two) Dose/Route: 2.5 mg Instruction: 0.5 x 5 mg tablets Condition: Thursday Dose/Route: 5 mg Instruction: 1 x 5 mg tablet Condition: Thursday Dose/Route: 2.5 mg Instruction: 0.5 x 5 mg tablets Condition: Thursday Dose/Route: 5 mg Instruction: 1 x 5 mg tablet Condition: Dose/Route: 2.5 mg Instruction: 0.5 x 5 mg tablets Condition: Thursday Dose/Route: 5 mg Instruction: 1 x 5 mg tablet Condition: Thursday Dose/Route: 2.5 mg Instruction: 0.5 x 5 mg tablets Protocol Text: Adjustment Start Date: Thursday04/14/23 INR Value: 3.4 INR Date: 04/14/23 Recheck Date: 04/28/23 Additional Instructions: eat greens today to help lower your INR and just a little more weekly docusate sodium 100 mg capsule 100 mg PO BID Qty: 20 0RF multivitamin Tablet 1 tab PO DAILY cyanocobalamin (vitamin B-12) 1,000 mcg capsule 1,000 mcg PO DAILY (DME) blood-glucose meter Misc See Rx Instructions .ROUTE .MEDSUPPLY Qty: 1 0RF Rx Instructions: TEST 2 TIMES DAILY esomeprazole magnesium [Nexium] 20 mg capsule,delayed release(DR/EC) 20 mg PO DAILY tizanidine 4 mg tablet 4 mg PO Q8H PRN (Reason: muscle spasticity) phenytoin sodium extended 100 mg capsule 300 mg PO BID diltiazem HCl [Cardizem CD] 120 mg capsule,extended release 24hr 120 mg PO DAILY Qty: 90 3RF Protocol: Hold for SBP/HR < HOLD for SBP < : 90 HOLD for HR < : 60
--- NOTE | 2023-04-20 17:16 | ECG_ITS ---
Test Reason : FALL Blood Pressure : / mmHG Vent. Rate : 077 BPM Atrial Rate : 077 BPM P-R Int : 164 ms QRS Dur : 088 ms QT Int : 404 ms P-R-T Axes : 020 -78 060 degrees QTc Int : 457 ms Normal sinus rhythm Indeterminate axis Inferior infarct (cited on or before 02-SEP-2021) Abnormal ECG When compared with ECG of 28-JAN-2023 09:15, Sinus rhythm has replaced Atrial fibrillation Vent. rate has decreased BY 57 BPM Referred By: Yadira Smith Electronically Signed By:CLAUDE IZAGUIRRE
[2023-04-20 17:48] LABS: MANUAL DIFF FLAG NO
[2023-04-20 17:50] LABS: Basophils Percent Auto 0.2 % (0-2); Eosinophils Percent Auto 0.5 % (0-4); Hematocrit 40.6 % (37.0-47.0); Hemoglobin 13.7 g/dl (12.0-16.0); Imm Gran Abs Auto 0.05 X10*3/uL (0.00-0.03); Imm Gran Pct Auto 0.8 % (0.0-0.4); Lymphocytes Absolute Auto 1.4 X10*3/uL (1.2-4.9); Lymphocytes Percent Auto 20.7 % (20-40); Mean Corpuscular HGB Conc 33.7 g/dl (31.0-35.0); Mean Corpuscular Hemoglobin 34.2 pg (27.0-33.0); Mean Corpuscular Volume 101.2 fL (80.0-98.0); Mean Platelet Volume 9.7 fL (9.4-12.3); Monocytes Absolute Auto 0.4 X10*3/uL (0.1-1.2); Monocytes Percent Auto 6.5 % (2-11); Neutrophils Absolute Auto 4.7 x10*3/uL (2.0-8.3); Neutrophils Percent Auto 71.3 % (45-73); Platelet Count 166 X10*3/uL (160-400); Red Blood Count 4.01 X10*6/uL (4.20-5.50); Red Cell Distribution Width 12.8 % (11.0-16.0); White Blood Count 6.5 X10*3/uL (4.8-10.8)
[2023-04-20 17:58] LABS: INTERNATIONAL NORM RATIO 3.5 (0.9-1.1); Prothrombin Time 42.5 SEC (11.1-13.3)
[2023-04-20 18:02] LABS: Ethanol < 10 mg/dL
[2023-04-20 18:03] LABS: Alanine Aminotransferase 23 U/L (0-31); Alkaline Phosphatase 59 U/L (39-117); Anion Gap 12 (12-20); Aspartate Amino Transferase 17 U/L (5-31); Bilirubin Total 0.4 mg/dL (0.0-1.0); Blood Urea Nitrogen 16 mg/dL (9-16); Carbon Dioxide 30 mmol/L (22-29); Chloride 104 mmol/L (96-108); Creatinine Clr Calc Pharmacy 52.8; Estimated Glomerular Filt Rate > 60; Glucose Random 232 mg/dL (60-115); Lipase 15 U/L (8-78); Magnesium 1.9 mg/dL (1.6-2.6); Potassium 3.7 mmol/L (3.3-5.1); Sodium 142 mmol/L (135-145)
[2023-04-20 18:08] LABS: B Type Natriuretic Peptide 32 pg/mL (<100)
[2023-04-20 18:23] LABS: Troponin-I High Sensitivity < 2.7 ng/L (<3.5-17.0)
[2023-04-20] MEDS: Lidocaine 4 % Patch ADH..PATCH 1 PATCH TRANSDERMA (18:48)
[2023-04-20] MEDS: Morphine Sulfate 4 MG/ML CARTRIDGE IVPUSH (18:48)
--- NOTE | 2023-04-20 19:06 | PC.NURSE ---
pt a&o x4, pleasant, calm, and cooperative. pt here s/p fall at a [employer]. pt sts she did not feel lightheaded or dizzy. fall was due to losing balance. pt sts she has been falling more often lately, unsure as to why. 20G IV placed to LAC. labs drawn and sent. pt to CT scan with contrast. pt needed to be medicated for pain prior to scan. pt medicated per mar. currently resting quietly on stretcher. pt brother and nephew at bedside. call madrigal within pt reach. rr even/unlabored. plan of care ongoing.
[2023-04-20] MEDS: iohexoL 350 MG/ML 75 ML INFUS..BTL 85 ML IV (19:21)
[2023-04-20 19:37] VITALS: RESP 18
[2023-04-20] MEDS: HYDROmorphone HCl 0.5 MG/0.5 ML SYRINGE IVPUSH ×2 (19:37→21:43)
[2023-04-20 20:12] VITALS: BP 150/70; PULSE 83; RESP 20; TEMP 36.8; O2SAT 95
[2023-04-20 21:43] VITALS: RESP 16
--- NOTE | 2023-04-21 00:01 | PC.NURSE ---
Patient is alert and oriented x4, VSS. Patient continues to c/o of pain in left lateral thorax pain ranging from 8-10/10. ED provider aware. Patient reports she needs to urinate, purewick applied. Call madrigal within patient's reach. Patient awaiting transport to [facility] by EMS.
[2023-04-21 00:29] VITALS: RESP 16
[2023-04-21] MEDS: HYDROmorphone HCl 1 MG/ML SYRINGE IVPUSH (00:29)
--- NOTE | 2023-04-21 00:47 | PC.NURSE ---
Nurse to nurse given to MARLENY Jeff at [facility].
[2023-04-21 00:49] VITALS: BP 148/79; PULSE 93; RESP 16; TEMP 36.7; O2SAT 95
== END 2023-04-21 00:52 | disposition short-term general hospital (02) ==
PROVIDERS: Physician Assistant; Emergency Provider Emergency Medicine; PCP Internal Medicine
DX: S22.42XA Multiple fractures of ribs, left side, initial encounter for closed fracture (principal); I10 Essential (primary) hypertension; D68.51 Activated protein C resistance; Z86.718 Personal history of other venous thrombosis and embolism; Z79.01 Long term (current) use of anticoagulants; W18.30XA Fall on same level, unspecified, initial encounter; Y93.9 Activity, unspecified; Y92.9 Unspecified place or not applicable; Y99.9 Unspecified external cause status
CPT/HCPCS: 36415; 71045; 71260; 74177; 80053; 80307; 83690; 83735; 83880; 84484; 85025; 85610; 93005; 96374; 96375; 96376; 99285; J1170; J2270; Q9967

== ENCOUNTER → 2023-04-20 17:16 | Outpatient (BNV) | payer MEDICARE, SELFPAY | PROVIDERS: Emergency Provider Emergency Medicine; PCP Internal Medicine; Visit Provider Internal Medicine | DX: I49.8 Other specified cardiac arrhythmias (principal) | CPT/HCPCS: 93010 ==

== ENCOUNTER → 2023-05-18 15:37 | Outpatient (BNVA) | payer MEDICARE, SELFPAY | PROVIDERS: PCP Internal Medicine; Visit Provider Internal Medicine ==

== ENCOUNTER → 2023-05-27 16:16 | Outpatient (BNVA) | payer MEDICARE, SELFPAY | PROVIDERS: PCP Internal Medicine; Visit Provider Internal Medicine ==

== ENCOUNTER → 2023-06-03 13:09 | Outpatient (BNVA) | payer MEDICARE, SELFPAY | PROVIDERS: PCP Internal Medicine; Visit Provider Internal Medicine ==

== ENCOUNTER → 2023-06-10 14:43 | Outpatient (BNVA) | payer MEDICARE, SELFPAY | PROVIDERS: PCP Internal Medicine; Visit Provider Internal Medicine ==

== ENCOUNTER 2023-06-16 14:10 | Outpatient (AMB) | payer MEDICARE, SELFPAY ==
[2023-06-16 14:20] VITALS: BP 146/74; PULSE 75; O2SAT 98; BMI 36.7
--- NOTE | 2023-06-16 14:20 | MHC.PC.OV ---
Vital Signs 06/16/23 14:20 Height 5 ft 1 in Weight 194 lb BMI 36.7 BP 146/74 H Blood Pressure Location Lt brachial Position Sitting Pulse 75 Pulse Source Pulse Oximeter Pulse Oximetry (%) 98 Oxygen Delivery Method Room Air Intake Visit Reasons: [facility] home discharge Vice Admiral Required: No Nurse Instructor: Not Required per policy Accompanied by: Self / Same As Patient Allergies shrimp [SHRIMP] Allergy (Mild, Verified 06/16/23 14:21) HIVES No Known Drug Allergies Allergy (Unknown, Verified 06/16/23 14:21) Unknown Tobacco use date assessed: 06/16/23 Fall risk assessment: No Falls in past year Last assessed Fall Risk: 06/16/23 Dental Screening Dental Screen Date: 06/16/23 Did you have a dental visit in the last 12 months?: Yes Did you have a dental problem in the last 6 months where you did not have access to dental care?: No Was dental information given to patient?: Patient has dentist HPI [facility] discharge HPI Details fell and fractured 3 ribs a month ago; improving [facility] Medical History Factor V Leiden DVT (deep venous thrombosis) Hyperlipidemia Hypertension Diabetes mellitus with coincident hypertension Surgical History History of lumpectomy of right breast History of appendectomy History of cholecystectomy Family History Father Asthma Mother Diabetes Hypertension Colon cancer Other Substance use disorder Social History Household Members: None Housing: Apartment Do you presently have visiting nurse or other home services: No Alcohol intake: never Patient Tobacco Use Status: Never used Tobacco e-Cigarette/Vaping Use: Never Used Second Hand Smoke Exposure: No Advance Directives Date on File: 02/08/20 service: No Current occupational status: employed Cognitive needs: No Hearing needs: No Vision needs: No Questionnaire PHQ-9 Over the last 2 weeks, how often have you been bothered by any of the following problems? 1. Little interest or pleasure in doing things: not at all 2. Feeling down, depressed, or hopeless: not at all 3. Trouble falling or staying asleep, or sleeping too much: not at all 4. Feeling tired or having little energy: not at all 5. Poor appetite or overeating: not at all 6. Feeling bad about yourself - or that you are a failure or have let yourself or your family down: not at all 7. Trouble concentrating on things, such as reading the newspaper or watching television: not at all 8. Moving or speaking so slowly that other people could have noticed. Or the opposite - being so fidgety or restless that you have been moving around a lot more than usual: not at all 9. Thoughts that you would be better off or of hurting yourself in some way: not at all Total score: 0 Depression Screening Interpretation: Negative Depression Screening Done: Yes Source: Developed by Drs. Tee Esqueda, Cami Betts, Zac Arellano and colleagues, with an educational naz from [employer]. Thrive Questionnaire Date Thrive assessed: 06/16/23 I am a: Patient What is your living situation today?: I have a steady place to live Within the past 12 months, did the food you bought not last and you didn't have the money to get more?: Never true Within the past 12 months, did you worry whether your food would run out before you got money to buy more?: Never true Do you have trouble paying for medicines?: No Do you have trouble getting transportation to medical appointments?: No Do you have trouble paying your heating and electricity bill?: No Do you have trouble taking care of your child, family member or friend?: No Do you have trouble with day-to-day activities such as bathing, preparing meals, shopping, managing finances, etc.?: No Are you currently unemployed and looking for a job?: No Are you interested in more education?: No Please select the resources that you would like help with: None THRIVE Score: 0 AUDIT C Alcohol Use Questionnaire (AUDIT-C) 1. How often do you have a drink containing alcohol?: Never Total Score: 0 Score Reviewed/Action Taken: Yes JOEL-7 AMB Questionnaire JOEL-7 Date JOEL - 7 assessed: 06/16/23 Feeling nervous, anxious, or on edge: 0 = Not at all Not being able to stop or control worryin = Not at all Worrying too much about different things: 0 = Not at all Trouble relaxin = Not at all Being so restless that it is hard to sit still: 0 = Not at all Becoming easily annoyed or irritable: 0 = Not at all Feeling afraid as if something awful might happen: 0 = Not at all Total JOEL-7 score (0-4 normal; 5-9 mild; 10-14 moderate; 15-21 severe): 0 Source: Developed by Drs. Tee Esqueda, Cami Betts, Zac Arellano and colleagues, with an educational naz from [employer]. Review of Systems Const Denies chills, Denies headache(s) and Denies weight loss ENT Denies headache(s) Card Denies chest pain, Denies syncope, Denies irregular heart rhythm and Denies dyspnea Resp Denies chest congestion, Denies cough and Denies dyspnea GI Denies abdominal pain, Denies change in stool character, Denies nausea and Denies vomiting Musc Denies deformity and Denies joint swelling Neuro Denies syncope and Denies headache(s) Physical exam (Primary Care) Vital Signs: Last Vital Signs Pulse 75 06/16/23 14:20 BP 146/74 H 06/16/23 14:20 Pulse Ox 98 06/16/23 14:20 Oxygen Delivery Method Room Air 06/16/23 14:20 BMI result Body Mass Index 36.7 Tobacco/Smoking Status: Tobacco use Status Tobacco use date assessed 06/16/23 06/16/23 14:22 Patient Tobacco Use Status Never used Tobacco 06/16/23 14:22 e-Cigarette/Vaping Use Never Used 06/16/23 14:22 PHQ-9: PHQ-9 Score PHQ-9: Total score 0 06/16/23 14:34 Depression Screening Interpretation: Negative Thrive Assessment: Date of Thrive Assessment Date Thrive assessed 06/16/23 06/16/23 14:22 Const General: cooperative, comfortable, no acute distress and alert Neck Neck: Yes no lymphadenopathy Thyroid: Thyroid normal Resp Effort & Inspection: normal respiratory effort Auscultation: clear to auscultation bilaterally Percussion: percussion normal Cardio Jugular venous distension: no JVD Palpation: normal PMI Rate: regular rate Rhythm: regular rhythm Heart sounds: S1 normal heart sound present and S2 normal heart sound present GI Inspection: Yes normal to inspection Palpation (GI): No hepatosplenomegaly present Skin General skin exam: no rashes or lesions noted Extrem General: Yes no clubbing, cyanosis or edema Results AMB Hemoglobin A1c AMB Hemoglobin A1c 5.6 % Last Edit by GILMA Melton on 06/16/23 14:35 Results Reviewed Results Reviewed: Laboratory Last Values Hgb A1c (Clinic) 5.6 % (4.0-6.0) 06/16/23 14:22 Assessment and Plan Assessment & Plan (1) Rib fractures: Code(s): S22.49XA - Multiple fractures of ribs, unspecified side, initial encounter for closed fracture Plan: improved Orders: Orders Lipid Panel 06/16/23 E78.5 - Hyperlipidemia, unspecified Complete Blood Count Auto Diff 06/16/23 D64.9 - Anemia, unspecified Comprehensive Violet. Panel Fast 06/16/23 N28.9 - Disorder of kidney and ureter, unspecified AMB Hemoglobin A1c 06/16/23 E11.9 - Type 2 diabetes mellitus without complications, I10 - Essential (primary) hypertension Thyroid Stimulating Hormone 06/16/23 E03.9 - Hypothyroidism, unspecified Hemoglobin A1c 06/16/23 R73.9 - Hyperglycemia, unspecified Coding Level of Care Code Est Pt Level 3 (88675) Diagnoses Rib fractures S22.49XA
== END 2023-06-16 14:48 | disposition home or self-care (01) ==
PROVIDERS: PCP Internal Medicine; Visit Provider Internal Medicine
DX: E11.9 Type 2 diabetes mellitus without complications (principal); I10 Essential (primary) hypertension
CPT/HCPCS: 83036; 99213

== ENCOUNTER 2023-06-17 08:56 | Outpatient (REF) | payer MEDICARE, SELFPAY ==
[2023-06-17 09:25] LABS: MANUAL DIFF FLAG NO
[2023-06-17 09:37] LABS: Basophils Percent Auto 0.4 % (0-2); Eosinophils Percent Auto 0.6 % (0-4); Hematocrit 41.1 % (37.0-47.0); Hemoglobin 13.8 g/dl (12.0-16.0); Imm Gran Abs Auto 0.01 X10*3/uL (0.00-0.03); Imm Gran Pct Auto 0.2 % (0.0-0.4); Lymphocytes Percent Auto 21.1 % (20-40); Mean Corpuscular HGB Conc 33.6 g/dl (31.0-35.0); Mean Corpuscular Hemoglobin 34.2 pg (27.0-33.0); Mean Platelet Volume 9.1 fL (9.4-12.3); Monocytes Absolute Auto 0.3 X10*3/uL (0.1-1.2); Neutrophils Absolute Auto 3.4 x10*3/uL (2.0-8.3); Neutrophils Percent Auto 71.7 % (45-73); Platelet Count 169 X10*3/uL (160-400); Red Blood Count 4.03 X10*6/uL (4.20-5.50); Red Cell Distribution Width 12.9 % (11.0-16.0); White Blood Count 4.7 X10*3/uL (4.8-10.8)
[2023-06-17 09:39] LABS: Estimated Average Glucose 100 mg/dL; Hemoglobin A1c % 5.1 % (<6.0)
[2023-06-17 10:00] LABS: Alanine Aminotransferase 16 U/L (0-31); Albumin Level 3.5 g/dL (3.5-5.0); Alkaline Phosphatase 96 U/L (39-117); Anion Gap 9 (12-20); Aspartate Amino Transferase 13 U/L (5-31); Bilirubin Total 0.4 mg/dL (0.0-1.0); Blood Urea Nitrogen 12 mg/dL (9-16); Calcium 8.7 mg/dL (8.4-10.2); Carbon Dioxide 33 mmol/L (22-29); Chloride 108 mmol/L (96-108); Cholesterol 168 mg/dL (<200); Estimated Glomerular Filt Rate > 60; Glucose Fasting 102 mg/dL (60-99); HDL Cholesterol 53 mg/dL (>40); LDL Cholesterol Calculated 99 mg/dL (<100); Potassium 3.4 mmol/L (3.3-5.1); Sodium 147 mmol/L (135-145); Total Protein 6.3 g/dL (6.5-8.0); Triglycerides 83 mg/dL (<150)
[2023-06-17 10:14] LABS: Thyroid Stimulating Hormone 2.39 uIU/mL (0.32-4.0)
== END 2023-06-17 08:57 | disposition home or self-care (01) ==
LOC: HO.LAB 08:56
PROVIDERS: PCP Internal Medicine; Visit Provider Internal Medicine
DX: D64.9 Anemia, unspecified (principal); E03.9 Hypothyroidism, unspecified; E78.5 Hyperlipidemia, unspecified; N28.9 Disorder of kidney and ureter, unspecified; R73.9 Hyperglycemia, unspecified
CPT/HCPCS: 36415; 80053; 80061; 83036; 84443; 85025

== ENCOUNTER 2023-07-06 13:10 | Outpatient (REF) | payer MEDICARE, SELFPAY ==
[2023-07-06 13:59] LABS: Prothrombin Time 75.1 SEC (11.1-13.3)
[2023-07-06 14:05] LABS: INTERNATIONAL NORM RATIO 6.2 (0.9-1.1)
== END 2023-07-06 13:11 | disposition home or self-care (01) ==
LOC: HO.LAB 13:10
PROVIDERS: PCP Internal Medicine; Visit Provider Internal Medicine
DX: I82.402 Acute embolism and thrombosis of unspecified deep veins of left lower extremity (principal); Z51.81 Encounter for therapeutic drug level monitoring; Z79.01 Long term (current) use of anticoagulants
CPT/HCPCS: 36415; 85610; 99212

== ENCOUNTER 2023-07-06 13:10 | Outpatient (AMB) | payer MEDICARE, SELFPAY ==
[2023-07-06 13:33] LABS: Prothrombin Time Whole Bld POC 82.4 sec (11.1-13.5); ~PT, ~INR - Anti Coag Clinic 6.9 (0.9-1.1)
--- NOTE | 2023-07-06 13:40 | MHC.OFFVISCO ---
Intake Intake Visit Reasons: Anticoagulation Allergies shrimp [SHRIMP] Allergy (Mild, Verified 07/06/23 13:15) HIVES No Known Drug Allergies Allergy (Unknown, Verified 07/06/23 13:15) Unknown Medication List - Last Reconciled 07/06/23 by Clover Garrett RN ammonium lactate 12% 1 appl topical BID atorvastatin 40 mg PO DAILY blood sugar diagnostic (Blood Glucose Test strips) test blood sugar twice a day blood-glucose meter TEST 2 TIMES DAILY blood-glucose meter (Accu-Chek Guide Glucose Meter) As directed cyanocobalamin (vitamin B-12) 1,000 mcg PO DAILY diltiazem HCl (Cardizem CD) 120 mg See Protocol PO DAILY docusate sodium 100 mg PO BID esomeprazole magnesium (Nexium) 20 mg PO DAILY furosemide 20 mg PO DAILY glipizide 5 mg PO DAILY lancing device ACCU-CHECK DARLINE DEVICE lancing device (Adjustable Lancing Device) As directed lisinopril 10 mg PO DAILY multivitamin 1 tab PO DAILY phenytoin sodium extended 200 mg PO BID tizanidine 4 mg PO Q8H PRN triamcinolone acetonide 0.5% 1 appl topical TID warfarin 5 mg See Protocol PO DAILY Nursing Note Amb to [facility] feeling WELL- LAST VISIT [facility] 06/10/23 DID NOT SHOW FOR 06/24 ACS VISIT Medications and supplements reviewed- sts she is off amlodipine (no warfarin interaction) and phenytoin has been decreased to 200mg BID Sts she has lost 35 pounds Denies any unusual signs and symptoms of bruising, bleeding Denies any new Chest pain, SOB, or clotting INR: 6.9 critical high sent to lab for confirmation LAB INR 6.2 Nutritional guidance given: have serving dark leafy greens today and tomorrow Dose: hold warfarin today and tomorrow F/U INR: Friday 07/07 REVIEWED WITH PT BLEEDING RISK WITH ELEVATED INR- TO GO TO ED WITH ANY FALLS OR BLEEDING sts she did fall 2 weeks ago hit my head but it was nothing did not got to ED, reviewed again now critical high INR, bleed risk high however because on anticoagulation therapy pt needs to go to ED if any falls with head involvement Patient verbalizes understanding of instructions given with accurate read back/ teach back of dosing critical INR reported to Ashvin FARMER at Dr Parra office with both INRs, dosing hold x 2 days and f/u Friday 07/07 Anti-Coag Initial Assessment Social Hx Patient Tobacco Use Status: Never used Tobacco alcohol intake: never Alcohol intake frequency: a few times a month Coding Level of Care Code Est Patient Level 2 Diagnoses Current use of anticoagulant therapy Z79.01 Time Spent (min) 30 Assessment & Plan Assessment & Plan (1) Current use of anticoagulant therapy: Code(s): Z79.01 - long-term (current) use of 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 Orders: Orders Prothrombin Time INR Today Z79.01 - long-term (current) use of anticoagulants
== END 2023-07-06 14:30 | disposition home or self-care (01) ==
LOC: HO.ACS 13:10
PROVIDERS: PCP Internal Medicine; Visit Provider Internal Medicine
DX: Z79.01 Long term (current) use of anticoagulants (principal)

== ENCOUNTER 2023-07-08 10:16 | Outpatient (AMB) | payer MEDICARE, SELFPAY ==
[2023-07-08 10:37] LABS: Prothrombin Time Whole Bld POC 22.2 sec (11.1-13.5); ~PT, ~INR - Anti Coag Clinic 1.9 (0.9-1.1)
--- NOTE | 2023-07-08 10:42 | MHC.OFFVISCO ---
Intake Intake Visit Reasons: Anticoagulation Allergies shrimp [SHRIMP] Allergy (Mild, Verified 07/08/23 10:17) HIVES No Known Drug Allergies Allergy (Unknown, Verified 07/08/23 10:17) Unknown Medication List - Last Reconciled 07/08/23 by Lubna Layne RN ammonium lactate 12% 1 appl topical BID atorvastatin 40 mg PO DAILY blood sugar diagnostic (Blood Glucose Test strips) test blood sugar twice a day blood-glucose meter TEST 2 TIMES DAILY blood-glucose meter (Accu-Chek Guide Glucose Meter) As directed cyanocobalamin (vitamin B-12) 1,000 mcg PO DAILY diltiazem HCl (Cardizem CD) 120 mg See Protocol PO DAILY docusate sodium 100 mg PO BID esomeprazole magnesium (Nexium) 20 mg PO DAILY furosemide 20 mg PO DAILY glipizide 5 mg PO DAILY lancing device ACCU-CHECK DARLINE DEVICE lancing device (Adjustable Lancing Device) As directed lisinopril 10 mg PO DAILY multivitamin 1 tab PO DAILY phenytoin sodium extended 200 mg PO BID tizanidine 4 mg PO Q8H PRN triamcinolone acetonide 0.5% 1 appl topical TID warfarin 5 mg See Protocol PO DAILY Nursing Note INR: 1.9 in therapeutic range Medications and supplements reviewed ATE A LOT OF SPINACHE AND BROCCOLI SHANIKA SHE IS TAKING APPLE CIDER VINEGAR 1 TAB DAILY - HAS BEEN X 2 MONTHS SHE IS LOOSING INTENTIONAL WEIGHT Denies any signs and symptoms of bleeding or bruising or clotting. Bleeding, bruising, clotting discussed Nutritional guidance given Dose: DECREASING DOSE TO 5MG X 2 DAYS/ 2.5MG X 5 DAYS F/U INR: 1 WEEK Patient verbalizes understanding of instructions given Anti-Coag Initial Assessment Social Hx Patient Tobacco Use Status: Never used Tobacco alcohol intake: never Alcohol intake frequency: a few times a month Coding Level of Care Code Est Patient Level 1 Diagnoses Current use of anticoagulant therapy Z79.01 Results AMB INR Fingerstick AMB INR Fingerstick 1.9 Last Edit by Lubna Layne RN on 07/08/23 10:29 MANUAL ENTRY Assessment & Plan Assessment & Plan (1) Current use of anticoagulant therapy: Code(s): Z79.01 - custodial (current) use of 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
== END 2023-07-08 10:50 | disposition home or self-care (01) ==
LOC: HO.ACS 10:16
PROVIDERS: PCP Internal Medicine; Visit Provider Internal Medicine
DX: Z79.01 Long term (current) use of anticoagulants (principal)

== ENCOUNTER → 2023-07-08 10:16 | Outpatient (BNVA) | payer MEDICARE, SELFPAY | PROVIDERS: PCP Internal Medicine; Visit Provider Internal Medicine | DX: Z86.718 Personal history of other venous thrombosis and embolism (principal); Z79.01 Long term (current) use of anticoagulants; Z51.81 Encounter for therapeutic drug level monitoring | CPT/HCPCS: 85610; 99211 ==

== ENCOUNTER 2023-07-15 12:58 | Outpatient (AMB) | payer MEDICARE, SELFPAY ==
[2023-07-15 13:28] LABS: Prothrombin Time Whole Bld POC 27.6 sec (11.1-13.5); ~PT, ~INR - Anti Coag Clinic 2.3 (0.9-1.1)
--- NOTE | 2023-07-15 13:39 | MHC.OFFVISCO ---
Intake Intake Visit Reasons: Anticoagulation Allergies shrimp [SHRIMP] Allergy (Mild, Verified 07/15/23 13:23) HIVES No Known Drug Allergies Allergy (Unknown, Verified 07/15/23 13:23) Unknown Medication List - Last Reconciled 07/15/23 by Celeste Chong RN ammonium lactate 12% 1 appl topical BID apple cider vinegar PO atorvastatin 40 mg PO DAILY blood sugar diagnostic (Blood Glucose Test strips) test blood sugar twice a day blood-glucose meter TEST 2 TIMES DAILY blood-glucose meter (Accu-Chek Guide Glucose Meter) As directed cyanocobalamin (vitamin B-12) 1,000 mcg PO DAILY diltiazem HCl (Cardizem CD) 120 mg See Protocol PO DAILY docusate sodium 100 mg PO BID esomeprazole magnesium (Nexium) 20 mg PO DAILY furosemide 20 mg PO DAILY glipizide 5 mg PO DAILY lancing device ACCU-CHECK DARLINE DEVICE lancing device (Adjustable Lancing Device) As directed lisinopril 10 mg PO DAILY multivitamin 1 tab PO DAILY phenytoin sodium extended 200 mg PO BID tizanidine 4 mg PO Q8H PRN triamcinolone acetonide 0.5% 1 appl topical TID warfarin 5 mg See Protocol PO DAILY Nursing Note NO CP,SOB,DIET/MED CHANGES,FALLS OR SX OF BLEEDING. 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
== END 2023-07-15 13:45 | disposition home or self-care (01) ==
LOC: HO.ACS 12:58
PROVIDERS: PCP Internal Medicine; Visit Provider Internal Medicine
DX: Z79.01 Long term (current) use of anticoagulants (principal)

== ENCOUNTER → 2023-07-15 12:58 | Outpatient (BNVA) | payer MEDICARE, SELFPAY | PROVIDERS: PCP Internal Medicine; Visit Provider Internal Medicine | DX: Z86.718 Personal history of other venous thrombosis and embolism (principal); Z79.01 Long term (current) use of anticoagulants; Z51.81 Encounter for therapeutic drug level monitoring | CPT/HCPCS: 85610; 99211 ==

== ENCOUNTER → 2023-07-22 13:57 | Outpatient (BNVA) | payer MEDICARE, SELFPAY | PROVIDERS: PCP Internal Medicine; Visit Provider Internal Medicine | DX: Z86.718 Personal history of other venous thrombosis and embolism (principal); Z79.01 Long term (current) use of anticoagulants; Z51.81 Encounter for therapeutic drug level monitoring | CPT/HCPCS: 85610; 99211 ==

== ENCOUNTER 2023-08-06 12:58 | Outpatient (AMB) | payer MEDICARE, SELFPAY ==
[2023-08-06 13:10] LABS: Prothrombin Time Whole Bld POC 41.5 sec (11.1-13.5); ~PT, ~INR - Anti Coag Clinic 3.5 (0.9-1.1)
--- NOTE | 2023-08-06 13:20 | MHC.OFFVISCO ---
Intake Intake Visit Reasons: Anticoagulation Allergies shrimp [SHRIMP] Allergy (Mild, Verified 08/06/23 13:04) HIVES No Known Drug Allergies Allergy (Unknown, Verified 08/06/23 13:04) Unknown Medication List - Last Reconciled 08/06/23 by Celeste Chong RN ammonium lactate 12% 1 appl topical BID apple cider vinegar PO atorvastatin 40 mg PO DAILY blood sugar diagnostic (Blood Glucose Test strips) test blood sugar twice a day blood-glucose meter TEST 2 TIMES DAILY blood-glucose meter (Accu-Chek Guide Glucose Meter) As directed cyanocobalamin (vitamin B-12) 1,000 mcg PO DAILY diltiazem HCl CD (Cardizem CD) 120 mg See Protocol PO DAILY docusate sodium 100 mg PO BID esomeprazole magnesium (Nexium) 20 mg PO DAILY furosemide 20 mg PO DAILY glipizide 5 mg PO DAILY lancing device ACCU-CHECK DARLINE DEVICE lancing device (Adjustable Lancing Device) As directed lisinopril 10 mg PO DAILY multivitamin 1 tab PO DAILY phenytoin sodium extended 200 mg PO BID tizanidine 4 mg PO Q8H PRN triamcinolone acetonide 0.5% 1 appl topical TID warfarin 5 mg See Protocol PO DAILY Nursing Note PT.STATES THAT SHE HAS HAD INCREASED FAMILY STRESS NO CP,SOB,DIET/MED CHANGES OR SX OF BLEEDING. HOLD WARFARIN TODAY THEN RESUME USUAL DOSE AND FOLLOW-UP IN 2 WEEKS GOOD UNDERSTANDING OF FOSING INSTR. 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
== END 2023-08-06 13:25 | disposition home or self-care (01) ==
LOC: HO.ACS 12:58
PROVIDERS: PCP Internal Medicine; Visit Provider Internal Medicine
DX: Z79.01 Long term (current) use of anticoagulants (principal)

== ENCOUNTER → 2023-08-06 12:58 | Outpatient (BNVA) | payer MEDICARE, SELFPAY | PROVIDERS: PCP Internal Medicine; Visit Provider Internal Medicine | DX: I82.402 Acute embolism and thrombosis of unspecified deep veins of left lower extremity (principal); Z79.01 Long term (current) use of anticoagulants; Z51.81 Encounter for therapeutic drug level monitoring | CPT/HCPCS: 85610; 99211 ==

== ENCOUNTER 2023-08-20 13:00 | Outpatient (AMB) | payer MEDICARE, SELFPAY ==
[2023-08-20 13:19] LABS: Prothrombin Time Whole Bld POC 23.2 sec (11.1-13.5); ~PT, ~INR - Anti Coag Clinic 1.9 (0.9-1.1)
--- NOTE | 2023-08-20 13:24 | MHC.OFFVISCO ---
Intake Intake Visit Reasons: Anticoagulation Allergies shrimp [SHRIMP] Allergy (Mild, Verified 08/20/23 13:08) HIVES No Known Drug Allergies Allergy (Unknown, Verified 08/20/23 13:08) Unknown Medication List - Last Reconciled 08/20/23 by Clover Granados, RN ammonium lactate 12% 1 appl topical BID apple cider vinegar PO atorvastatin 40 mg PO DAILY blood sugar diagnostic (Blood Glucose Test strips) test blood sugar twice a day blood-glucose meter TEST 2 TIMES DAILY blood-glucose meter (Accu-Chek Guide Glucose Meter) As directed cyanocobalamin (vitamin B-12) 1,000 mcg PO DAILY diltiazem HCl CD (Cardizem CD) 120 mg See Protocol PO DAILY esomeprazole magnesium (Nexium) 20 mg PO DAILY furosemide 20 mg PO DAILY glipizide 5 mg PO DAILY lancing device ACCU-CHECK DARLINE DEVICE lancing device (Adjustable Lancing Device) As directed lisinopril 10 mg PO DAILY multivitamin 1 tab PO DAILY phenytoin sodium extended 200 mg PO BID tizanidine 4 mg PO Q8H PRN triamcinolone acetonide 0.5% 1 appl topical TID warfarin 5 mg See Protocol PO DAILY Nursing Note INR: 1.9 out of therapeutic range of 2-3 Medications and supplements reviewed No changes in health, diet, medications, or supplements, Denies any signs and symptoms of bleeding or bruising or clotting. 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
== END 2023-08-20 13:35 | disposition home or self-care (01) ==
LOC: HO.ACS 13:00
PROVIDERS: PCP Internal Medicine; Visit Provider Internal Medicine
DX: Z79.01 Long term (current) use of anticoagulants (principal)

== ENCOUNTER → 2023-08-20 13:00 | Outpatient (BNVA) | payer MEDICARE, SELFPAY | PROVIDERS: PCP Internal Medicine; Visit Provider Internal Medicine | DX: I82.402 Acute embolism and thrombosis of unspecified deep veins of left lower extremity (principal); Z51.81 Encounter for therapeutic drug level monitoring; Z79.01 Long term (current) use of anticoagulants | CPT/HCPCS: 85610; 99211 ==

== ENCOUNTER 2023-09-03 13:05 | Outpatient (AMB) | payer MEDICARE, SELFPAY ==
[2023-09-03 13:16] LABS: Prothrombin Time Whole Bld POC 44.9 sec (11.1-13.5); ~PT, ~INR - Anti Coag Clinic 3.7 (0.9-1.1)
--- NOTE | 2023-09-03 13:23 | MHC.OFFVISCO ---
Intake Intake Visit Reasons: Anticoagulation Allergies shrimp [SHRIMP] Allergy (Mild, Verified 09/03/23 13:09) HIVES No Known Drug Allergies Allergy (Unknown, Verified 09/03/23 13:09) Unknown Medication List - Last Reconciled 09/03/23 by Clover Granados RN ammonium lactate 12% 1 appl topical BID apple cider vinegar PO atorvastatin 40 mg PO DAILY blood sugar diagnostic (Blood Glucose Test strips) test blood sugar twice a day blood-glucose meter TEST 2 TIMES DAILY blood-glucose meter (Accu-Chek Guide Glucose Meter) As directed cyanocobalamin (vitamin B-12) 1,000 mcg PO DAILY diltiazem HCl CD (Cardizem CD) 120 mg See Protocol PO DAILY esomeprazole magnesium (Nexium) 20 mg PO DAILY furosemide 20 mg PO DAILY glipizide 5 mg PO DAILY lancing device ACCU-CHECK DARLINE DEVICE lancing device (Adjustable Lancing Device) As directed lisinopril 10 mg PO DAILY multivitamin 1 tab PO DAILY phenytoin sodium extended 200 mg PO BID tizanidine 4 mg PO Q8H PRN triamcinolone acetonide 0.5% 1 appl topical TID warfarin 5 mg See Protocol PO DAILY Nursing Note INR ??3.7 out of therapeutic range of 2-3 Medications and supplements reviewed: no change Patient status: Medications or supplements: no change Diet: usual diet Denies any signs and symptoms of bleeding or clotting or unusual bruising Bleeding, bruising, clotting discussed Nutritional guidance given: to have greens today and tomorrow to lower INR. Food list reviewed. Avoid foods that can raise the INR. Dose: 5mg 2X and 2.5mg 5X F/U INR Date : 2 weeks?? Patient verbalizing understanding of instructions given. 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
== END 2023-09-03 13:35 | disposition home or self-care (01) ==
LOC: HO.ACS 13:05
PROVIDERS: PCP Internal Medicine; Visit Provider Internal Medicine
DX: Z79.01 Long term (current) use of anticoagulants (principal)

== ENCOUNTER → 2023-09-03 13:05 | Outpatient (BNVA) | payer MEDICARE, SELFPAY | PROVIDERS: PCP Internal Medicine; Visit Provider Internal Medicine | DX: Z86.718 Personal history of other venous thrombosis and embolism (principal); Z79.01 Long term (current) use of anticoagulants; Z51.81 Encounter for therapeutic drug level monitoring | CPT/HCPCS: 85610; 99211 ==

== ENCOUNTER 2023-09-23 13:04 | Outpatient (AMB) | payer MEDICARE, SELFPAY ==
[2023-09-23 13:14] LABS: ~PT, ~INR - Anti Coag Clinic 1.8 (0.9-1.1)
--- NOTE | 2023-09-23 13:20 | MHC.OFFVISCO ---
Intake Intake Visit Reasons: Anticoagulation Allergies shrimp [SHRIMP] Allergy (Mild, Verified 09/23/23 13:06) HIVES No Known Drug Allergies Allergy (Unknown, Verified 09/23/23 13:06) Unknown Medication List - Last Reconciled 09/23/23 by Lubna Layne RN ammonium lactate 12% 1 appl topical BID apple cider vinegar PO BID atorvastatin 40 mg PO DAILY blood sugar diagnostic (Blood Glucose Test strips) test blood sugar twice a day blood-glucose meter TEST 2 TIMES DAILY blood-glucose meter (Accu-Chek Guide Glucose Meter) As directed cyanocobalamin (vitamin B-12) 1,000 mcg PO DAILY diltiazem HCl CD (Cardizem CD) 120 mg See Protocol PO DAILY esomeprazole magnesium (Nexium) 20 mg PO DAILY furosemide 20 mg PO DAILY glipizide 5 mg PO DAILY lancing device ACCU-CHECK DARLINE DEVICE lancing device (Adjustable Lancing Device) As directed lisinopril 10 mg PO DAILY multivitamin 1 tab PO DAILY phenytoin sodium extended 200 mg PO BID tizanidine 4 mg PO Q8H PRN triamcinolone acetonide 0.5% 1 appl topical TID warfarin 5 mg See Protocol PO DAILY Nursing Note INR 1.8? out of therapeutic range Medications and supplements reviewed Patient status: Pt states she has been walking more, may have missed a dose not sure - states has been feeling more tiered than usual -wonders if because INR lower or weather Medications or supplements: no changes Diet: good - wants to eat healthier too Denies any signs and symptoms of bleeding or clotting or unusual bruising Bleeding, bruising, clotting discussed Nutritional guidance given: avoid greens x 3 days - eat orange and reds to help raise the INR Dose: 7.5mg today then, resume usual dose and f/u week 5mg x 2 days/ 2.5mg x 5 days F/U INR Date: 1 week ?? Patient verbalizing understanding of instructions given. Anti-Coag Initial Assessment Social Hx Patient Tobacco Use Status: Never used Tobacco alcohol intake: never Alcohol intake frequency: a few times a month Questionnaires HAS-BLED Does the patient had uncontrolled Hypertension?: No Does the patient have renal disease?: No Does the patient have liver disease?: No Does the patient have a history of stroke?: No Has the patient had major bleeding or predisposition to bleeding?: Yes Does the patient have labile INRs?: Yes Is the patient over 65 years of age?: Yes Is the patient on medications that gives them a predisposition to bleeding?: No Does the patient use alcohol?: Yes HAS-BLED Score: 4 CHADSVASC Age: 75 or over Gender: Female Does the patient have a history of CHF?: No Does the patient have a history of Hypertension?: Yes Does the patient have a history of Stroke/TIA/Thromboembolism?: Yes Does the patient have a history of Vascular Disease (prior DC, PAD or aortic plaque)?: Yes Does the patient have a history of Diabetes?: Yes CHADS VACS Score: 8 Jackie Prediction Score Rsk VTE Active Cancer: No Previous VTE, excluding superficial vein thrombosis: Yes Reduced mobility: No Already known Thrombophilic Condition: Yes With-in last month Trauma and/or Surgery: No Elderly 70 year or older: Yes Heart and/or Respiratory Failure: No Acute Myocardial infarction and/or Ischemic Stroke: No Acute Infection and/or Rheumatologic Disorder: Yes Obesity (BMI 30 or greater): Yes Score: 9 Jackie Score less than 4; Low Risk of VTE Jackie Score 4 or greater; High Risk of VTE Coding Level of Care Code Est Patient Level 1 Diagnoses Current use of anticoagulant therapy Z79.01 Results AMB INR Fingerstick AMB INR Fingerstick 1.8 Last Edit by Lubna Layne RN on 09/23/23 13:16 MANUAL ENTRY Assessment & Plan Assessment & Plan (1) Current use of anticoagulant therapy: Code(s): Z79.01 - [facility] (current) use of 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
== END 2023-09-23 13:25 | disposition home or self-care (01) ==
LOC: HO.ACS 13:04
PROVIDERS: PCP Internal Medicine; Visit Provider Internal Medicine
DX: Z79.01 Long term (current) use of anticoagulants (principal)

== ENCOUNTER → 2023-09-23 13:04 | Outpatient (BNVA) | payer MEDICARE, SELFPAY | PROVIDERS: PCP Internal Medicine; Visit Provider Internal Medicine | DX: Z86.718 Personal history of other venous thrombosis and embolism (principal); Z79.01 Long term (current) use of anticoagulants; Z51.81 Encounter for therapeutic drug level monitoring | CPT/HCPCS: 85610; 99211 ==

== ENCOUNTER 2023-10-06 13:05 | Outpatient (AMB) | payer MEDICARE, SELFPAY ==
[2023-10-06 13:13] LABS: Prothrombin Time Whole Bld POC 27.8 sec (11.1-13.5); ~PT, ~INR - Anti Coag Clinic 2.3 (0.9-1.1)
--- NOTE | 2023-10-06 13:21 | MHC.OFFVISCO ---
Intake Intake Visit Reasons: Anticoagulation Allergies shrimp [SHRIMP] Allergy (Mild, Verified 10/06/23 13:08) HIVES No Known Drug Allergies Allergy (Unknown, Verified 10/06/23 13:08) Unknown Medication List - Last Reconciled 10/06/23 by Clover Granados, RN ammonium lactate 12% 1 appl topical BID apple cider vinegar PO BID atorvastatin 40 mg PO DAILY blood sugar diagnostic (Blood Glucose Test strips) test blood sugar twice a day blood-glucose meter TEST 2 TIMES DAILY blood-glucose meter (Accu-Chek Guide Glucose Meter) As directed cyanocobalamin (vitamin B-12) 1,000 mcg PO DAILY diltiazem HCl CD (Cardizem CD) 120 mg See Protocol PO DAILY esomeprazole magnesium (Nexium) 20 mg PO DAILY furosemide 20 mg PO DAILY glipizide 5 mg PO DAILY lancing device ACCU-CHECK DARLINE DEVICE lancing device (Adjustable Lancing Device) As directed lisinopril 10 mg PO DAILY multivitamin 1 tab PO DAILY phenytoin sodium extended 200 mg PO BID tizanidine 4 mg PO Q8H PRN triamcinolone acetonide 0.5% 1 appl topical TID warfarin 5 mg See Protocol PO DAILY Nursing Note Pt to ACS in usual state of health. Denies changes in meds, supplements or diet. INR: 2.3 in therapeutic range of 2-3 No S/S of bleeding, bruising or clotting. No unusual bruising. Dose: will keep same dose of 5mg X 2 days and 2.5mg X 5 days. Retest: 2 weeks Anti-Coag Initial Assessment Social Hx Patient Tobacco Use Status: Never used Tobacco alcohol intake: never Alcohol intake frequency: a few times a month Coding Level of Care Code Est Patient Level 1 Diagnoses Current use of anticoagulant therapy Z79.01 Assessment & Plan Assessment & Plan (1) Current use of anticoagulant therapy: Code(s): Z79.01 - USP (current) use of 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
== END 2023-10-06 13:46 | disposition home or self-care (01) ==
LOC: HO.ACS 13:06
PROVIDERS: PCP Internal Medicine; Visit Provider Internal Medicine
DX: Z79.01 Long term (current) use of anticoagulants (principal)

== ENCOUNTER → 2023-10-06 13:05 | Outpatient (BNVA) | payer MEDICARE, SELFPAY | PROVIDERS: PCP Internal Medicine; Visit Provider Internal Medicine | DX: Z86.718 Personal history of other venous thrombosis and embolism (principal); Z79.01 Long term (current) use of anticoagulants; Z51.81 Encounter for therapeutic drug level monitoring | CPT/HCPCS: 85610; 99211 ==

== ENCOUNTER 2023-10-21 11:12 | Outpatient (AMB) | payer MEDICARE, SELFPAY ==
[2023-10-21 11:24] LABS: Prothrombin Time Whole Bld POC 30.8 sec (11.1-13.5); ~PT, ~INR - Anti Coag Clinic 2.6 (0.9-1.1)
--- NOTE | 2023-10-21 13:04 | MHC.OFFVISCO ---
Intake Intake Visit Reasons: Anticoagulation Allergies shrimp [SHRIMP] Allergy (Mild, Verified 10/21/23 11:19) HIVES No Known Drug Allergies Allergy (Unknown, Verified 10/21/23 11:19) Unknown Medication List - Last Reconciled 10/21/23 by Celeste Chong RN ammonium lactate 12% 1 appl topical BID apple cider vinegar PO BID atorvastatin 40 mg PO DAILY blood sugar diagnostic (Blood Glucose Test strips) test blood sugar twice a day blood-glucose meter TEST 2 TIMES DAILY blood-glucose meter (Accu-Chek Guide Glucose Meter) As directed cyanocobalamin (vitamin B-12) 1,000 mcg PO DAILY diltiazem HCl CD (Cardizem CD) 120 mg See Protocol PO DAILY esomeprazole magnesium (Nexium) 20 mg PO DAILY furosemide 20 mg PO DAILY glipizide 5 mg PO DAILY lancing device ACCU-CHECK DARLINE DEVICE lancing device (Adjustable Lancing Device) As directed lisinopril 10 mg PO DAILY multivitamin 1 tab PO DAILY phenytoin sodium extended 200 mg PO BID tizanidine 4 mg PO Q8H PRN triamcinolone acetonide 0.5% 1 appl topical TID warfarin 5 mg See Protocol PO DAILY Nursing Note no cp,sob,diet/med changes,falls or sx of bleeding. continue present dose and follow-up in 4 weeks. good understanding of fosing instr. 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
== END 2023-10-21 13:05 | disposition home or self-care (01) ==
LOC: HO.ACS 11:12
PROVIDERS: PCP Internal Medicine; Visit Provider Internal Medicine
DX: Z79.01 Long term (current) use of anticoagulants (principal)

== ENCOUNTER → 2023-10-21 11:12 | Outpatient (BNVA) | payer MEDICARE, SELFPAY | PROVIDERS: PCP Internal Medicine; Visit Provider Internal Medicine | DX: Z86.718 Personal history of other venous thrombosis and embolism (principal); Z79.01 Long term (current) use of anticoagulants; Z51.81 Encounter for therapeutic drug level monitoring | CPT/HCPCS: 85610; 99211 ==

== ENCOUNTER 2023-11-06 18:38 | Emergency (ER) | payer MEDICARE, SELFPAY ==
--- NOTE | ~2023-11-06 | CT_ITS ---
EXAMINATION: CT ABDOMEN AND PELVIS WITHOUT CONTRAST CLINICAL INFORMATION: Pain status-post fall. COMPARISON: CT abdomen and pelvis dated 04/20/2023; abdominal MRI/MRCP dated 01/26/2023. TECHNIQUE: Multidetector volumetric imaging was performed from the superior aspect of the liver through the pubic symphysis. Sagittal and coronal reformatted images were obtained on the technologist's workstation. This CT examination was performed using dose optimization techniques as appropriate, variously including the following: *Automated exposure control *Adjustment of mA and/or kV according to patient size (this includes techniques or standardized protocols for targeted exams where dose is matched to indication/reason for exam; i.e. extremities or head) *Use of iterative reconstruction technique DLP: 943 mGy-cm FINDINGS: LUNG BASES: The visualized lung bases are unremarkable. There are aortic and mitral annular calcifications. LIVER, GALLBLADDER, AND BILIARY TREE: The liver is normal in size, shape, and attenuation. No focal hepatic lesion or biliary ductal dilatation is present. The gallbladder is surgically absent. PANCREAS: Unremarkable. SPLEEN: Unremarkable. ADRENAL GLANDS: Unremarkable. KIDNEYS AND URETERS: The kidneys are normal in size, shape, and attenuation. No hydronephrosis, hydroureter, or calculi seen. No perinephric stranding. BLADDER: Unremarkable. GASTROINTESTINAL TRACT: There is distal esophageal wall thickening (3:17). A large duodenal diverticulum is seen (3:32). There is mild diverticulosis, without acute diverticulitis. No bowel obstruction, free intraperitoneal air or abscess is seen. There is no focal bowel wall thickening. The vermiform appendix is not identified with certainty; however, there is no finding to suggest appendicitis. ABDOMINAL WALL: There is a small fat-containing umbilical hernia. LYMPH NODES: There are shotty, nonpathologically enlarged bilateral inguinal lymph nodes. No sizable abdominopelvic lymphadenopathy is seen. VASCULAR: There is mild aortoiliac atherosclerotic calcification. No abdominal aortic aneurysm is seen. PELVIC VISCERA: Unremarkable. OSSEOUS STRUCTURES: There is multi-level marked thoracolumbar spondylosis, with an appearance suggesting possible DISH (diffuse idiopathic skeletal hyperostosis). Degenerative disc disease is most pronounced at L2-L3 and L5-S1, with vacuum disc phenomenon. No acute or aggressive osseous finding is noted. CT/CT abdomen pelvis wo IV con IMPRESSION: 1. There is distal esophageal wall thickening, which can be more fully evaluated with a barium swallow or upper endoscopy, if clinically indicated. 2. There is mild diverticulosis, without acute diverticulitis. 3. No urinary calculus, mass or obstruction is seen. 4. The gallbladder surgically absent. 5. There is a small fat-containing umbilical hernia. 6. Skeletal findings suggest possible DISH. There is no acute or aggressive osseous finding. Fleischner guidelines were followed.
--- NOTE | ~2023-11-06 | CT_ITS ---
EXAMINATION: CT HEAD WITHOUT CONTRAST CLINICAL INFORMATION: Headache status-post fall; Coumadin therapy. COMPARISON: CT head dated 12/13/2021. TECHNIQUE: Contiguous axial imaging was performed from the skull base to vertex without intravenous administration of contrast. Multiplanar reformatted images are submitted. This CT examination was performed using dose optimization techniques as appropriate, variously including the following: *Automated exposure control *Adjustment of mA and/or kV according to patient size (this includes techniques or standardized protocols for targeted exams where dose is matched to indication/reason for exam; i.e. extremities or head) *Use of iterative reconstruction technique DLP: 1247 mGy-cm (head and cervical spine) FINDINGS: There is no acute intracranial hemorrhage or evidence of territorial infarction. No abnormal mass effect or midline shift is seen. [place] to white matter differentiation is well preserved. There is no abnormal attenuation within the brain parenchyma. The ventricles are normal in size. There is sulcal widening, with a bifrontal predominance. No extra-axial fluid collections are identified. The calvarium and scalp soft tissues are normal. There is mild hyperostosis frontalis interna. The middle ear cavity and mastoid air cells are clear. There is mild mucosal thickening of the left axillary sinus. CT/CT cervical spine wo IV con IMPRESSION: No acute intracranial pathology. EXAMINATION: CT CERVICAL SPINE WITHOUT CONTRAST CLINICAL INFORMATION: Neck pain status-post fall. COMPARISON: None available. TECHNIQUE: Contiguous axial imaging was performed through the cervical spine without intravenous administration of contrast. Multiplanar reformatted images are submitted. This CT examination was performed using dose optimization techniques as appropriate, variously including the following: *Automated exposure control *Adjustment of mA and/or kV according to patient size (this includes techniques or standardized protocols for targeted exams where dose is matched to indication/reason for exam; i.e. extremities or head) *Use of iterative reconstruction technique DLP: As above FINDINGS: Vertebral body heights are normal. There is mild reversal of the normal lordotic curvature. At C5-C6, there is moderate disc space narrowing. At C6-C7, there is mild disc space narrowing. The remaining disc spaces are well-maintained. No acute fracture or spondylolisthesis is seen. There is multi-level cervical and upper lumbar endplate arthropathy. The posterior elements are intact. There is no prevertebral soft tissue swelling. The dens is intact. The bilateral lung apices are clear. IMPRESSION: 1. No acute fracture or spondylolisthesis is seen. 2. There is moderate degenerative disc disease at C5-C6, and mild degenerative disc disease is seen at C6-C7. 3. There is multi-level cervical an upper lumbar endplate arthropathy. Fleischner guidelines were followed.
--- NOTE | ~2023-11-06 | XR_ITS ---
EXAMINATION: XR ANKLE, LEFT CLINICAL INFORMATION: Fall COMPARISON: Tibiofibular radiograph 03/17/2024 TECHNIQUE: AP, lateral, and mortise views of the left ankle. FINDINGS: No acute fracture or dislocation of the right ankle. Ankle mortise is intact. Degenerative changes of the forefoot and hindfoot. Calcaneal spurs. Soft tissue calcifications, which may be related to chronic venous stasis and/or varicose vein sclerotherapy. An underlying vascular malformation cannot be excluded Edema throughout the tibial soft tissues. XR/XR ankle LT min 3V IMPRESSION: 1. No acute fracture or dislocation of the left ankle. 2. Soft tissue swelling, phleboliths, and dystrophic calcifications along the lateral tibial soft tissues. Underlying vascular malformation cannot be excluded
[2023-11-06 18:43] VITALS: BP 160/86; BP 216/84; PULSE 82; PULSE 83; RESP 18; TEMP 36.8; O2SAT 97; O2SAT 98; BMI 39.8
[2023-11-06 18:49] VITALS: BP 174/65
--- NOTE | 2023-11-06 18:49 | PC.NURSE ---
Karishma Rivers MD aware of BP. Recheck BP once pt. is settled in.
--- NOTE | 2023-11-06 18:58 | ED.FALL ---
HPI - Fall General Chief Complaint: Fall Stated Complaint: fall, low back pain, on thinners Time Seen by Provider: 11/06/23 18:41 History of Present Illness HPI Narrative: Patient is a 78-year-old female history of factor 5 Leiden, paroxysmal AFib. Patient is currently on blood thinners. Fell backwards. Hit the gluteal area might have hit her head. There was no loss of consciousness. There was no nausea no vomiting. There has no focal weakness. C-spine was collared. Patient was sent in for evaluation. No chest pain or shortness of breath patient claims her ankle give way and fell. More mechanical in nature. There is no fever no chills. There has no chest pain. Related Data Home Medications ?Medication ?Instructions ?Recorded ?Confirmed cyanocobalamin (vitamin B-12) 1,000 mcg PO DAILY 02/03/20 10/06/23 1,000 mcg capsule multivitamin 1 tab PO DAILY 02/03/20 10/06/23 tizanidine 4 mg tablet 4 mg PO Q8H PRN muscle spasticity 03/06/23 10/06/23 phenytoin sodium extended 100 mg 200 mg PO BID 05/18/23 10/06/23 capsule apple cider vinegar PO BID 09/23/23 10/06/23 Previous Rx's ?Medication ?Instructions ?Recorded lancing device #1 ea 02/10/20 ammonium lactate 12 % topical cream 1 applic topical BID #140 grams 03/08/20 blood-glucose meter #1 ea 09/27/21 lancing device (Adjustable Lancing #1 ea 10/15/21 Device) blood-glucose meter (Accu-Chek #1 ea 11/25/21 Guide Glucose Meter) blood sugar diagnostic (Blood #50 ea 11/26/21 Glucose Test strips) atorvastatin 40 mg tablet 40 mg PO DAILY #90 tabs 12/22/22 triamcinolone acetonide 0.5 % 1 appl topical TID #15 grams 02/25/23 topical cream diltiazem HCl 120 mg 120 mg PO DAILY #90 caps 03/26/23 capsule,extended release 24 hr (Cardizem CD) esomeprazole magnesium 20 mg 20 mg PO DAILY #90 caps 08/15/23 capsule,delayed release (Nexium) lisinopril 10 mg tablet 10 mg PO DAILY #90 tabs 08/15/23 furosemide 20 mg tablet 20 mg PO DAILY #100 tabs 09/22/23 glipizide 5 mg tablet 5 mg PO DAILY #100 tabs 09/22/23 warfarin 5 mg tablet 5 mg PO DAILY #90 tabs 10/19/23 Allergies Allergy/AdvReac Type Severity Reaction Status Date / Time shrimp [SHRIMP] Allergy Mild HIVES Verified 11/06/23 18:47 No Known Drug Allergies Allergy Unknown Unknown Verified 11/06/23 18:47 Review of Systems Review of Systems: Positive back pain Question hit her head PMFSH Past Medical History Attestation statement: The following information was validated with the patient. Medical History Factor V Leiden DVT (deep venous thrombosis) Hyperlipidemia Hypertension Diabetes mellitus with coincident hypertension Surgical History History of lumpectomy of right breast History of appendectomy History of cholecystectomy Family History Family History Father Asthma Mother Diabetes Hypertension Colon cancer Other Substance use disorder Social History Social History Household Members: None Housing: Apartment Do you presently have visiting nurse or other home services: No Alcohol intake: never Patient Tobacco Use Status: Never used Tobacco e-Cigarette/Vaping Use: Never Used Second Hand Smoke Exposure: No Advance Directives: Yes Advance Directives on File: Yes Advance Directives Date on File: 02/03/23 Do you have a plan to hurt others: No Plan service: No Current occupational status: employed Cognitive needs: No Hearing needs: No Vision needs: No Physical Exam Vital Signs: Vital Signs: Last Vital Signs Temp 98.2 F 11/06/23 18:43 Pulse 83 11/06/23 18:43 Resp 18 11/06/23 18:43 BP 174/65 H 11/06/23 18:49 Pulse Ox 97 11/06/23 18:43 O2 Del Method Room Air 11/06/23 18:43 BMI result Body Mass Index 39.8 Appearance: Alert. Oriented X3. No acute distress. Eyes: Pupils equal, round and reactive to light. ENT: Pharynx normal. Neck: Normal inspection. C-spine was immobilized. There has no point tenderness on palpation. No lymph nodes noted. No crepitus CVS: Normal heart rate and rhythm. Pulses normal. Normal S1 and S2 Respiratory: No respiratory distress. Breath sounds normal. No Wheezing. No rales Abdomen: Soft and nontender. No rigidity. No distention. good BS x4 Skin: Skin warm and dry. Normal skin color. Normal skin turgor. Extremities: No lower extremity edema. Neurovascular intact to all extremities. No Lacerations. No Rash Neuro: Oriented X 3. No motor deficit. No sensory deficit. Moving all extermities. No slurred speech Medical Decision Making Medical Decision Making [facility] Narrative: Status post mechanical fall. Question head strike. CT scan of the head and C-spine was ordered. Positive hitting her lower back area. CT scan of the abdomen pelvis was ordered to rule out the possibility of retroperitoneal bleed. Patient's INR was 3. Her hemoglobin is 14. No signs of anemia. Currently pending CT scan. X-ray of the ankle is also ordered. My interpretation of patient's x-ray showed no acute fracture. No dislocation. Final reading still pending. Differential Diagnosis Differential Diagnoses: The differential diagnosis associated with the presentation includes Head injury, fracture, intracranial bleed, C-spine fracture Admission/Observation Consideration of admission/observation: Escalation of care including admission/observation considered Lab Data [facility] Lab Attestation statement: I reviewed the patient's lab results. 11/06/23 19:46 11/06/23 19:46 Labs: Lab Results 11/06/23 Range/Units 19:46 WBC 5.1 (4.8-10.8) X10*3/uL RBC 4.08 L (4.20-5.50) X10*6/uL Hgb 14.0 (12.0-16.0) g/dl Hct 42.0 (37.0-47.0) % MCV 102.9 H (80.0-98.0) fL MCH 34.3 H (27.0-33.0) pg MCHC 33.3 (31.0-35.0) g/dl RDW 13.2 (11.0-16.0) % Plt Count 145 L (160-400) X10*3/uL MPV 9.4 (9.4-12.3) fL Immature Gran % (Auto) 0.2 (0.0-0.4) % Neut % (Auto) 70.8 (45-73) % Lymph % (Auto) 22.2 (20-40) % Price % (Auto) 6.2 (2-11) % Eos % (Auto) 0.4 (0-4) % Baso % (Auto) 0.2 (0-2) % Lymph # (Auto) 1.1 L (1.2-4.9) X10*3/uL Price # (Auto) 0.3 (0.1-1.2) X10*3/uL Eos # (Auto) 0.0 (0.0-0.4) X10*3/uL Baso # (Auto) 0.0 (0.0-0.2) X10*3/uL Abs Immat Gran (auto) 0.01 (0.00-0.03) X10*3/uL Absolute Neuts (auto) 3.6 (2.0-8.3) x10*3/uL Absolute Nucleated RBC 0.000 (0.0-0.012) X10*3/uL Nucleated RBC % (auto) 0.0 (0.0-0.2) /100WBC PT 37.3 H D (11.1-13.3) SEC INR 3.1 H D (0.9-1.1) Sodium 145 (135-145) mmol/L Potassium 3.7 (3.3-5.1) mmol/L Chloride 105 (96-108) mmol/L Carbon Dioxide 29 (22-29) mmol/L Anion Gap 15 (12-20) BUN 18 H (9-16) mg/dL Creatinine 0.75 (0.5-1.4) mg/dL Estim Creat Clear Calc 68.9 Estimated GFR > 60 Random Glucose 123 H (60-115) mg/dL Calcium 8.9 (8.4-10.2) mg/dL Independent Interpretation I performed an independent interpretation of an: Plain X-Ray (X-ray of the ankle showed no acute fracture.) Chronic Conditions History of atrial fibrillation. History of factor 5 Leiden. Patient on blood thinners. Discharge Plan Discharge Clinical Impression: Head injury, Contusion, Sprain and strain of ankle Patient Disposition: Still a Patient Prescriptions: No Action (DME) lancing device Misc See Rx Instructions .ROUTE .MEDSUPPLY Qty: 1 8RF Rx Instructions: ACCU-CHECK DARLINE DEVICE ammonium lactate 12 % cream 1 applic topical BID Qty: 140 6RF (DME) lancing device [Adjustable Lancing Device] Misc See Rx Instructions .Route Qty: 1 0RF Rx Instructions: As directed (DME) blood-glucose meter [Accu-Chek Guide Glucose Meter] Misc See Rx Instructions .Route Qty: 1 0RF Rx Instructions: As directed (DME) Blood Glucose Test Strip See Rx Instructions .Route Qty: 50 8RF Rx Instructions: test blood sugar twice a day atorvastatin 40 mg tablet 40 mg PO DAILY Qty: 90 8RF triamcinolone acetonide 0.5 % cream 1 appl topical TID Qty: 15 3RF esomeprazole magnesium [Nexium] 20 mg capsule,delayed release(DR/EC) 20 mg PO DAILY Qty: 90 3RF lisinopril 10 mg tablet 10 mg PO DAILY Qty: 90 3RF furosemide 20 mg tablet 20 mg PO DAILY Qty: 100 2RF glipizide 5 mg tablet 5 mg PO DAILY Qty: 100 2RF warfarin 5 mg tablet 5 mg PO DAILY Qty: 90 3RF Hold Instructions: Resume on 05/22/22. resume warfarin on 05/22/22 Protocol: Dose Management Condition: Thursday (Week One) Dose/Route: 2.5 mg Instruction: 0.5 x 5 mg tablets Condition: Thursday Dose/Route: 2.5 mg Instruction: 0.5 x 5 mg tablets Condition: Thursday Dose/Route: 2.5 mg Instruction: 0.5 x 5 mg tablets Condition: Thursday Dose/Route: 5 mg Instruction: 1 x 5 mg tablet Condition: Dose/Route: 2.5 mg Instruction: 0.5 x 5 mg tablets Condition: Thursday Dose/Route: 2.5 mg Instruction: 0.5 x 5 mg tablets Condition: Thursday Dose/Route: 5 mg Instruction: 1 x 5 mg tablet Condition: Thursday (Week Two) Dose/Route: 2.5 mg Instruction: 0.5 x 5 mg tablets Condition: Thursday Dose/Route: 2.5 mg Instruction: 0.5 x 5 mg tablets Condition: Thursday Dose/Route: 2.5 mg Instruction: 0.5 x 5 mg tablets Condition: Thursday Dose/Route: 5 mg Instruction: 1 x 5 mg tablet Condition: Dose/Route: 2.5 mg Instruction: 0.5 x 5 mg tablets Condition: Thursday Dose/Route: 2.5 mg Instruction: 0.5 x 5 mg tablets Condition: Thursday Dose/Route: 5 mg Instruction: 1 x 5 mg tablet Protocol Text: Adjustment Start Date: Thursday10/21/23 INR Value: Pending INR Date: 10/21/23 Recheck Date: 11/11/23 multivitamin Tablet 1 tab PO DAILY cyanocobalamin (vitamin B-12) 1,000 mcg capsule 1,000 mcg PO DAILY (DME) blood-glucose meter Misc See Rx Instructions .ROUTE .MEDSUPPLY Qty: 1 0RF Rx Instructions: TEST 2 TIMES DAILY tizanidine 4 mg tablet 4 mg PO Q8H PRN (Reason: muscle spasticity) diltiazem HCl [Cardizem CD] 120 mg capsule,extended release 24hr 120 mg PO DAILY Qty: 90 3RF Protocol: Hold for SBP/HR < HOLD for SBP < : 90 HOLD for HR < : 60 phenytoin sodium extended 100 mg capsule 200 mg PO BID apple cider vinegar PO BID Patient Comments: PT STATES TAKING 1 TAB DAILY Print Language: [place]
[2023-11-06 19:53] LABS: MANUAL DIFF FLAG NO
[2023-11-06 19:56] LABS: Basophils Percent Auto 0.2 % (0-2); Eosinophils Percent Auto 0.4 % (0-4); Imm Gran Abs Auto 0.01 X10*3/uL (0.00-0.03); Imm Gran Pct Auto 0.2 % (0.0-0.4); Lymphocytes Absolute Auto 1.1 X10*3/uL (1.2-4.9); Lymphocytes Percent Auto 22.2 % (20-40); Mean Corpuscular HGB Conc 33.3 g/dl (31.0-35.0); Mean Corpuscular Hemoglobin 34.3 pg (27.0-33.0); Mean Corpuscular Volume 102.9 fL (80.0-98.0); Mean Platelet Volume 9.4 fL (9.4-12.3); Monocytes Absolute Auto 0.3 X10*3/uL (0.1-1.2); Monocytes Percent Auto 6.2 % (2-11); Neutrophils Absolute Auto 3.6 x10*3/uL (2.0-8.3); Neutrophils Percent Auto 70.8 % (45-73); Platelet Count 145 X10*3/uL (160-400); Red Blood Count 4.08 X10*6/uL (4.20-5.50); Red Cell Distribution Width 13.2 % (11.0-16.0); White Blood Count 5.1 X10*3/uL (4.8-10.8)
[2023-11-06 20:01] LABS: INTERNATIONAL NORM RATIO 3.1 (0.9-1.1); Prothrombin Time 37.3 SEC (11.1-13.3)
[2023-11-06 20:07] LABS: Anion Gap 15 (12-20); Blood Urea Nitrogen 18 mg/dL (9-16); Calcium 8.9 mg/dL (8.4-10.2); Carbon Dioxide 29 mmol/L (22-29); Chloride 105 mmol/L (96-108); Creatinine Clr Calc Pharmacy 68.9; Estimated Glomerular Filt Rate > 60; Glucose Random 123 mg/dL (60-115); Potassium 3.7 mmol/L (3.3-5.1); Sodium 145 mmol/L (135-145)
--- NOTE | 2023-11-06 21:28 | PC.NURSE ---
Pt assisted to use bedpan. Pt with large bowel movement and urine. Pt cleansed and chux pad changed.
[2023-11-06 22:00] VITALS: BP 184/73; PULSE 70; RESP 16; TEMP 36.6; O2SAT 99
[2023-11-06 22:56] LABS: Appearance Urine Turbid; Color Urine Yellow; Glucose Urine UA Negative (Negative); Leukocyte Esterase Urine Large (3+) (Negative); Nitrite Urine Negative (Negative); PH 7.5 (5.0-9.0); UMIC TRIGGER UACC YES; Urine Blood Small (1+) (Negative); Urine Ketones Negative (Negative); Urine Protein Negative (Neg-Trace)
[2023-11-06 23:09] LABS: Bacteria Urine 4+ (None Seen); Hyaline Casts Urine 0-2 /LPF (0-2); UACC Culture Trigger YES; WBC Urine 21-50 /HPF (0-5)
--- NOTE | 2023-11-06 23:35 | PC.NURSE ---
Pt ambulatory to restroom with tech.
[2023-11-06] MEDS: Acetaminophen 325 MG TABLET 650 MG PO (23:39)
[2023-11-06] MEDS: cefuroxime axetiL 500 MG TABLET PO (23:49)
[2023-11-07 00:11] VITALS: BP 187/73; PULSE 64; RESP 16; TEMP 36.2; O2SAT 98
[2023-11-07 00:23] VITALS: BP 187/73; PULSE 64; RESP 16; TEMP 36.2; O2SAT 98
== END 2023-11-07 00:25 | disposition home or self-care (01) ==
PROVIDERS: Emergency Medicine Emergency Medical Services; Emergency Provider Emergency Medicine; PCP Internal Medicine
DX: S09.90XA Unspecified injury of head, initial encounter (principal); S30.0XXA Contusion of lower back and pelvis, initial encounter; S93.402A Sprain of unspecified ligament of left ankle, initial encounter; S96.912A Strain of unspecified muscle and tendon at ankle and foot level, left foot, initial encounter; X58.XXXA Exposure to other specified factors, initial encounter; N39.0 Urinary tract infection, site not specified; R51.9 Headache, unspecified; E11.9 Type 2 diabetes mellitus without complications; I10 Essential (primary) hypertension; E78.5 Hyperlipidemia, unspecified; I48.0 Paroxysmal atrial fibrillation; Z86.718 Personal history of other venous thrombosis and embolism; Y93.89 Activity, other specified; Y92.009 Unspecified place in unspecified non-institutional (private) residence as the place of occurrence of the external cause; Y99.9 Unspecified external cause status; Z79.02 Long term (current) use of antithrombotics/antiplatelets; Z79.01 Long term (current) use of anticoagulants; Z79.899 Other long term (current) drug therapy
CPT/HCPCS: 36415; 70450; 72125; 73610; 74176; 80048; 81001; 85025; 85610; 87086; 99284

== ENCOUNTER 2023-11-10 11:26 | Outpatient (AMB) | payer MEDICARE, SELFPAY ==
[2023-11-10 11:38] LABS: Prothrombin Time Whole Bld POC 27.6 sec (11.1-13.5); ~PT, ~INR - Anti Coag Clinic 2.3 (0.9-1.1)
--- NOTE | 2023-11-10 11:54 | MHC.OFFVISCO ---
Intake Intake Visit Reasons: Anticoagulation Allergies shrimp [SHRIMP] Allergy (Mild, Verified 11/10/23 11:30) HIVES No Known Drug Allergies Allergy (Unknown, Verified 11/10/23 11:30) Unknown Medication List - Last Reconciled 11/10/23 by Lubna Layne RN ammonium lactate 12% 1 appl topical BID apple cider vinegar PO BID atorvastatin 40 mg PO DAILY blood sugar diagnostic (Blood Glucose Test strips) test blood sugar twice a day blood-glucose meter TEST 2 TIMES DAILY blood-glucose meter (Accu-Chek Guide Glucose Meter) As directed cefuroxime axetil 250 mg PO BID cyanocobalamin (vitamin B-12) 1,000 mcg PO DAILY diltiazem HCl CD (Cardizem CD) 120 mg See Protocol PO DAILY esomeprazole magnesium (Nexium) 20 mg PO DAILY furosemide 20 mg PO DAILY glipizide 5 mg PO DAILY lancing device ACCU-CHECK DARLINE DEVICE lancing device (Adjustable Lancing Device) As directed lisinopril 10 mg PO DAILY multivitamin 1 tab PO DAILY phenytoin sodium extended 200 mg PO BID tizanidine 4 mg PO Q8H PRN triamcinolone acetonide 0.5% 1 appl topical TID warfarin 5 mg See Protocol PO DAILY Nursing Note INR: 2.3 in therapeutic range Medications and supplements reviewed Pt fell last thursday11/06/23- was feeling very tiered, no injury but found to have an UTI, tx with antbx cefuroxime x 7 days has abouut 3 more days left, she ate a big salad a few days ago. feeling better now Denies any signs and symptoms of bleeding or bruising or clotting. Bleeding, bruising, clotting discussed Nutritional guidance given - eat a mix of fruits and vegetables - eat an extra green at end of the week Dose: decrease sat dose to 2.5mg then remain on the same dose 5mg x 2 days/ 2.5mg x 5 days F/U INR: 1 week due to antbx Patient verbalizes understanding of instructions given Anti-Coag Initial Assessment Social Hx Patient Tobacco Use Status: Never used Tobacco alcohol intake: never Alcohol intake frequency: a few times a month Coding Level of Care Code Est Patient Level 1 Diagnoses Current use of anticoagulant therapy Z79.01 Assessment & Plan Assessment & Plan (1) Current use of anticoagulant therapy: Code(s): Z79.01 - shelter (current) use of 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
== END 2023-11-10 11:58 | disposition home or self-care (01) ==
LOC: HO.ACS 11:26
PROVIDERS: Visit Provider Internal Medicine
DX: Z79.01 Long term (current) use of anticoagulants (principal)

== ENCOUNTER → 2023-11-10 11:26 | Outpatient (BNVA) | payer MEDICARE, SELFPAY | PROVIDERS: Visit Provider Internal Medicine | DX: Z86.718 Personal history of other venous thrombosis and embolism (principal); Z79.01 Long term (current) use of anticoagulants; Z51.81 Encounter for therapeutic drug level monitoring | CPT/HCPCS: 85610; 99211 ==

== ENCOUNTER 2023-11-18 11:14 | Outpatient (AMB) | payer MEDICARE, SELFPAY ==
--- NOTE | 2023-11-18 11:18 | MHC.OFFVISCO ---
Intake Intake Visit Reasons: Anticoagulation Allergies shrimp [SHRIMP] Allergy (Mild, Verified 11/18/23 11:14) HIVES No Known Drug Allergies Allergy (Unknown, Verified 11/18/23 11:14) Unknown Medication List - Last Reconciled 11/18/23 by Bhakti Baez RN ammonium lactate 12% 1 appl topical BID apple cider vinegar PO BID atorvastatin 40 mg PO DAILY blood sugar diagnostic (Blood Glucose Test strips) test blood sugar twice a day blood-glucose meter TEST 2 TIMES DAILY blood-glucose meter (Accu-Chek Guide Glucose Meter) As directed cyanocobalamin (vitamin B-12) 1,000 mcg PO DAILY diltiazem HCl CD (Cardizem CD) 120 mg See Protocol PO DAILY esomeprazole magnesium (Nexium) 20 mg PO DAILY furosemide 20 mg PO DAILY glipizide 5 mg PO DAILY lancing device ACCU-CHECK DARLINE DEVICE lancing device (Adjustable Lancing Device) As directed lisinopril 10 mg PO DAILY multivitamin 1 tab PO DAILY phenytoin sodium extended 200 mg PO BID tizanidine 4 mg PO Q8H PRN triamcinolone acetonide 0.5% 1 appl topical TID warfarin 5 mg See Protocol PO DAILY Nursing Note INR: 2.0- in therapeutic range of 2-3 Medications and supplements reviewed No changes in health, diet, medications, or supplements, Denies any signs and symptoms of bleeding or bruising or clotting. Bleeding, bruising, clotting discussed Nutritional guidance given Dose: 5mg x 2, 2.5mg x 5 F/U INR: 2 weeks Patient verbalizes understanding of instructions given Anti-Coag Initial Assessment Social Hx Patient Tobacco Use Status: Never used Tobacco alcohol intake: never Alcohol intake frequency: a few times a month Coding Level of Care Code Est Patient Level 1 Diagnoses Current use of anticoagulant therapy Z79.01 Results AMB INR Fingerstick AMB INR Fingerstick 2.0 Last Edit by Bhakti Baez RN on 11/18/23 11:19 Assessment & Plan Assessment & Plan (1) Current use of anticoagulant therapy: Code(s): Z79.01 - long-term (current) use of 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 Medications: Discontinued cefuroxime axetil Discontinued Reason: Patient Completed Course 250 mg PO BID 14 tabs 0RF
[2023-11-18 11:19] LABS: Prothrombin Time Whole Bld POC 24.1 sec (11.1-13.5)
== END 2023-11-18 11:23 | disposition home or self-care (01) ==
LOC: HO.ACS 11:14
PROVIDERS: PCP Internal Medicine; Visit Provider Internal Medicine
DX: Z79.01 Long term (current) use of anticoagulants (principal)

== ENCOUNTER → 2023-11-18 11:14 | Outpatient (BNVA) | payer MEDICARE, SELFPAY | PROVIDERS: PCP Internal Medicine; Visit Provider Internal Medicine | DX: Z86.718 Personal history of other venous thrombosis and embolism (principal); Z79.01 Long term (current) use of anticoagulants; Z51.81 Encounter for therapeutic drug level monitoring | CPT/HCPCS: 85610; 99211 ==

== ENCOUNTER 2023-11-18 11:37 | Outpatient (AMB) | payer MEDICARE, SELFPAY ==
[2023-11-18 11:42] VITALS: BP 160/78; PULSE 69; O2SAT 99; BMI 38.8
--- NOTE | 2023-11-18 11:42 | A.OFFPC_ITS ---
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 Accompanied by: Self / Same As Patient Allergies shrimp [SHRIMP] Allergy (Mild, Verified 11/18/23 11:42) HIVES No Known Drug Allergies Allergy (Unknown, Verified 11/18/23 11:42) Unknown Medication List - Last Reconciled 11/19/23 by Jerry Spain MD ammonium lactate 12% 1 appl topical BID apple cider vinegar PO BID atorvastatin 40 mg PO DAILY blood sugar diagnostic (Blood Glucose Test strips) test blood sugar twice a day blood-glucose meter TEST 2 TIMES DAILY blood-glucose meter (Accu-Chek Guide Glucose Meter) As directed ciprofloxacin HCl (Cipro) 250 mg PO BID cyanocobalamin (vitamin B-12) 1,000 mcg PO DAILY diltiazem HCl CD (Cardizem CD) 120 mg See Protocol PO DAILY esomeprazole magnesium (Nexium) 20 mg PO DAILY furosemide 20 mg PO DAILY glipizide 5 mg PO DAILY lancing device ACCU-CHECK DARLINE DEVICE lancing device (Adjustable Lancing Device) As directed lisinopril 10 mg PO DAILY multivitamin 1 tab PO DAILY phenytoin sodium extended 200 mg PO BID tizanidine 4 mg PO Q8H PRN triamcinolone acetonide 0.5% 1 appl topical TID warfarin 5 mg See Protocol PO DAILY Tobacco use date assessed: 06/16/23 Fall risk assessment: 1 Fall in past year Last assessed Fall Risk: 11/18/23 Dental Screening Dental Screen Date: 06/16/23 HPI f/u HPI Details HTN on rx; doing well and compliant [facility] Medical History Factor V Leiden DVT (deep venous thrombosis) Hyperlipidemia Hypertension Diabetes mellitus with coincident hypertension Surgical History History of lumpectomy of right breast History of appendectomy History of cholecystectomy Family History Father Asthma Mother Diabetes Hypertension Colon cancer Other Substance use disorder Social History Household Members: None Housing: Apartment Do you presently have visiting nurse or other home services: No Alcohol intake: never Patient Tobacco Use Status: Never used Tobacco e-Cigarette/Vaping Use: Never Used Second Hand Smoke Exposure: No Advance Directives Date on File: 02/03/23 service: No Current occupational status: employed Cognitive needs: No Hearing needs: No Vision needs: No Questionnaire Thrive Questionnaire Date Thrive assessed: 06/16/23 JOEL-7 AMB Questionnaire JOEL-7 Date JOEL - 7 assessed: 06/16/23 Source: Developed by Drs. Tee Esqueda, Cami Betts, Zac Arellano and colleagues, with an educational naz from [employer]. Review of Systems Const Denies chills, Denies headache(s) and Denies weight loss ENT Denies headache(s) Card Denies chest pain, Denies syncope, Denies irregular heart rhythm and Denies dyspnea Resp Denies chest congestion, Denies cough and Denies dyspnea GI Denies abdominal pain, Denies change in stool character, Denies nausea and Denies vomiting Musc Denies deformity and Denies joint swelling Neuro Denies syncope and Denies headache(s) Physical exam (Primary Care) Vital Signs: Last Vital Signs Pulse 69 11/18/23 11:42 BP 160/78 H 11/18/23 11:42 Pulse Ox 99 11/18/23 11:42 Oxygen Delivery Method Room Air 11/18/23 11:42 BMI result Body Mass Index 38.8 Tobacco/Smoking Status: Tobacco use Status Tobacco use date assessed 06/16/23 11/18/23 11:43 Patient Tobacco Use Status Never used Tobacco 11/18/23 11:43 e-Cigarette/Vaping Use Never Used 11/18/23 11:43 Thrive Assessment: Date of Thrive Assessment Date Thrive assessed 06/16/23 11/18/23 11:43 Const General: cooperative, comfortable, no acute distress and alert Neck Neck: Yes no lymphadenopathy Thyroid: Thyroid normal Resp Effort & Inspection: normal respiratory effort Auscultation: clear to auscultation bilaterally Percussion: percussion normal Cardio Jugular venous distension: no JVD Palpation: normal PMI Rate: regular rate Rhythm: regular rhythm Heart sounds: S1 normal heart sound present and S2 normal heart sound present GI Inspection: Yes normal to inspection Palpation (GI): No hepatosplenomegaly present Skin General skin exam: no rashes or lesions noted Extrem General: Yes no clubbing, cyanosis or edema Results AMB INR Fingerstick AMB INR Fingerstick 2.0 Last Edit by Bhakti Baez RN on 11/18/23 11:19 Assessment and Plan Assessment & Plan (1) Hypertension: Code(s): I10 - Essential (primary) hypertension Plan: stable; same rx Orders: Orders Lipid Panel Today Z13.220 - Encounter for screening for lipoid disorders Comprehensive Unity. Panel Fast Today Z13.9 - Encounter for screening, unspecified Hemoglobin A1c Today R73.9 - Hyperglycemia, unspecified Complete Blood Count Auto Diff Today Z13.0 - Encounter for screening for diseases of the blood and blood-forming organs and certain disorders involving the immune mechanism Thyroid Stimulating Hormone Today Z13.29 - Encounter for screening for other suspected endocrine disorder Medications: New ciprofloxacin HCl (Cipro) 250 mg PO BID 10 tabs 0RF Coding Level of Care Code Est Pt Level 3 (58806) Diagnoses Hypertension I10
== END 2023-11-18 12:07 | disposition home or self-care (01) ==
PROVIDERS: PCP Internal Medicine; Visit Provider Internal Medicine
DX: I10 Essential (primary) hypertension (principal)
CPT/HCPCS: 99213

== ENCOUNTER 2023-11-20 07:13 | Outpatient (REF) | payer MEDICARE, SELFPAY ==
[2023-11-20 07:25] LABS: MANUAL DIFF FLAG NO
[2023-11-20 07:59] LABS: Basophils Percent Auto 0.4 % (0-2); Eosinophils Absolute Auto 0.2 X10*3/uL (0.0-0.4); Eosinophils Percent Auto 3.5 % (0-4); Hematocrit 42.8 % (37.0-47.0); Hemoglobin 14.2 g/dl (12.0-16.0); Imm Gran Abs Auto 0.02 X10*3/uL (0.00-0.03); Imm Gran Pct Auto 0.4 % (0.0-0.4); Mean Corpuscular HGB Conc 33.2 g/dl (31.0-35.0); Mean Corpuscular Hemoglobin 34.3 pg (27.0-33.0); Mean Corpuscular Volume 103.4 fL (80.0-98.0); Monocytes Absolute Auto 0.3 X10*3/uL (0.1-1.2); Monocytes Percent Auto 6.8 % (2-11); Neutrophils Absolute Auto 3.3 x10*3/uL (2.0-8.3); Neutrophils Percent Auto 67.9 % (45-73); Platelet Count 166 X10*3/uL (160-400); Red Blood Count 4.14 X10*6/uL (4.20-5.50); Red Cell Distribution Width 13.2 % (11.0-16.0); White Blood Count 4.9 X10*3/uL (4.8-10.8)
[2023-11-20 08:13] LABS: Estimated Average Glucose 103 mg/dL; Hemoglobin A1c % 5.2 % (<6.0)
[2023-11-20 08:39] LABS: Alanine Aminotransferase 21 U/L (0-31); Albumin Level 3.8 g/dL (3.5-5.0); Alkaline Phosphatase 75 U/L (39-117); Anion Gap 13 (12-20); Aspartate Amino Transferase 15 U/L (5-31); Bilirubin Total 0.4 mg/dL (0.0-1.0); Blood Urea Nitrogen 17 mg/dL (9-16); Calcium 8.9 mg/dL (8.4-10.2); Carbon Dioxide 29 mmol/L (22-29); Chloride 106 mmol/L (96-108); Cholesterol 171 mg/dL (<200); Estimated Glomerular Filt Rate > 60; Glucose Fasting 99 mg/dL (60-99); HDL Cholesterol 62 mg/dL (>40); LDL Cholesterol Calculated 91 mg/dL (<100); Potassium 4.2 mmol/L (3.3-5.1); Sodium 144 mmol/L (135-145); Total Protein 6.5 g/dL (6.5-8.0); Triglycerides 90 mg/dL (<150)
[2023-11-20 08:55] LABS: Thyroid Stimulating Hormone 3.54 uIU/mL (0.32-4.0)
== END 2023-11-20 07:14 | disposition home or self-care (01) ==
LOC: HO.LAB 07:13
PROVIDERS: PCP Internal Medicine; Visit Provider Internal Medicine
DX: R73.9 Hyperglycemia, unspecified (principal); Z13.220 Encounter for screening for lipoid disorders; Z13.9 Encounter for screening, unspecified; Z13.29 Encounter for screening for other suspected endocrine disorder; Z13.0 Encounter for screening for diseases of the blood and blood-forming organs and certain disorders involving the immune mechanism
CPT/HCPCS: 36415; 80053; 80061; 83036; 84443; 85025

== ENCOUNTER 2023-12-02 13:03 | Outpatient (AMB) | payer MEDICARE, SELFPAY ==
--- NOTE | 2023-12-02 13:11 | MHC.OFFVISCO ---
Intake Intake Visit Reasons: Anticoagulation Allergies shrimp [SHRIMP] Allergy (Mild, Verified 12/02/23 13:06) HIVES No Known Drug Allergies Allergy (Unknown, Verified 12/02/23 13:06) Unknown Medication List - Last Reconciled 12/02/23 by Bhakti Baez RN ammonium lactate 12% 1 appl topical BID apple cider vinegar PO BID atorvastatin 40 mg PO DAILY blood sugar diagnostic (Blood Glucose Test strips) test blood sugar twice a day blood-glucose meter TEST 2 TIMES DAILY blood-glucose meter (Accu-Chek Guide Glucose Meter) As directed cyanocobalamin (vitamin B-12) 1,000 mcg PO DAILY diltiazem HCl CD (Cardizem CD) 120 mg See Protocol PO DAILY esomeprazole magnesium (Nexium) 20 mg PO DAILY furosemide 20 mg PO DAILY glipizide 5 mg PO DAILY lancing device ACCU-CHECK DARLINE DEVICE lancing device (Adjustable Lancing Device) As directed lisinopril 10 mg PO DAILY multivitamin 1 tab PO DAILY phenytoin sodium extended 200 mg PO BID tizanidine 4 mg PO Q8H PRN triamcinolone acetonide 0.5% 1 appl topical TID warfarin 5 mg See Protocol PO DAILY Nursing Note INR 3.1-? out of therapeutic range of 2-3 Medications and supplements reviewed Patient status: pt states s/p fall 11/06/23, went to ed and had ct scan of head and xray ankle and scanned abd Medications or supplements: pt states finished antibiotics 7 day course of cipro for uti Diet: good Denies any signs and symptoms of bleeding or clotting or unusual bruising Bleeding, bruising, clotting discussed Nutritional guidance given: eat greens to lower Dose: 5mg x 2, 2.5mg x 5 F/U INR Date : 2 weeks? Patient verbalizing understanding of instructions given. Anti-Coag Initial Assessment Social Hx Patient Tobacco Use Status: Never used Tobacco alcohol intake: never Alcohol intake frequency: a few times a month Coding Level of Care Code Est Patient Level 1 Diagnoses Current use of anticoagulant therapy Z79.01 Assessment & Plan Assessment & Plan (1) Current use of anticoagulant therapy: Code(s): Z79.01 - [facility] (current) use of 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 Medications: Discontinued ciprofloxacin HCl (Cipro) Discontinued Reason: Patient Completed Course 250 mg PO BID 10 tabs 0RF
[2023-12-02 13:13] LABS: Prothrombin Time Whole Bld POC 37.5 sec (11.1-13.5); ~PT, ~INR - Anti Coag Clinic 3.1 (0.9-1.1)
== END 2023-12-02 13:19 | disposition home or self-care (01) ==
LOC: HO.ACS 13:03
PROVIDERS: PCP Internal Medicine; Visit Provider Internal Medicine
DX: Z79.01 Long term (current) use of anticoagulants (principal)

== ENCOUNTER → 2023-12-02 13:03 | Outpatient (BNVA) | payer MEDICARE, SELFPAY | PROVIDERS: PCP Internal Medicine; Visit Provider Internal Medicine | DX: Z86.718 Personal history of other venous thrombosis and embolism (principal); Z79.01 Long term (current) use of anticoagulants; Z51.81 Encounter for therapeutic drug level monitoring | CPT/HCPCS: 85610; 99211 ==

== ENCOUNTER 2023-12-15 13:03 | Outpatient (AMB) | payer MEDICARE, SELFPAY ==
[2023-12-15 13:07] VITALS: BP 140/74; PULSE 76; O2SAT 97
--- NOTE | 2023-12-15 13:07 | MHC.PC.OV ---
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 Accompanied by: Self / Same As Patient Allergies shrimp [SHRIMP] Allergy (Mild, Verified 12/15/23 13:07) HIVES No Known Drug Allergies Allergy (Unknown, Verified 12/15/23 13:07) Unknown Medication List - Last Reconciled 12/15/23 by Jerry Spain MD ammonium lactate 12% 1 appl topical BID apple cider vinegar PO BID atorvastatin 40 mg PO DAILY blood sugar diagnostic (Blood Glucose Test strips) test blood sugar twice a day blood-glucose meter TEST 2 TIMES DAILY blood-glucose meter (Accu-Chek Guide Glucose Meter) As directed cyanocobalamin (vitamin B-12) 1,000 mcg PO DAILY diltiazem HCl CD (Cardizem CD) 120 mg See Protocol PO DAILY esomeprazole magnesium (Nexium) 20 mg PO DAILY furosemide 20 mg PO DAILY glipizide 5 mg PO DAILY lancing device ACCU-CHECK DARLINE DEVICE lancing device (Adjustable Lancing Device) As directed lisinopril 10 mg PO DAILY multivitamin 1 tab PO DAILY phenytoin sodium extended 200 mg PO BID tizanidine 4 mg PO Q8H PRN triamcinolone acetonide 0.5% 1 appl topical TID warfarin 5 mg See Protocol PO DAILY Tobacco use date assessed: 06/16/23 Fall risk assessment: 2 + Falls in past year Last assessed Fall Risk: 12/15/23 Dental Screening Dental Screen Date: 06/16/23 Did you have a dental visit in the last 12 months?: Yes Did you have a dental problem in the last 6 months where you did not have access to dental care?: No Was dental information given to patient?: Patient has dentist HPI 6mth f/u - see comments HPI Details hypertension; doing well and compliant; has been taking 2 lisinopril a day PFSH Medical History Factor V Leiden DVT (deep venous thrombosis) Hyperlipidemia Hypertension Diabetes mellitus with coincident hypertension Surgical History History of lumpectomy of right breast History of appendectomy History of cholecystectomy Family History Father Asthma Mother Diabetes Hypertension Colon cancer Other Substance use disorder Social History Household Members: None Housing: Apartment Do you presently have visiting nurse or other home services: No Alcohol intake: never Patient Tobacco Use Status: Never used Tobacco e-Cigarette/Vaping Use: Never Used Second Hand Smoke Exposure: No Advance Directives Date on File: 02/03/23 service: No Current occupational status: employed Cognitive needs: No Hearing needs: No Vision needs: No Questionnaire PHQ-9 Over the last 2 weeks, how often have you been bothered by any of the following problems? 1. Little interest or pleasure in doing things: not at all 2. Feeling down, depressed, or hopeless: not at all 3. Trouble falling or staying asleep, or sleeping too much: not at all 4. Feeling tired or having little energy: not at all 5. Poor appetite or overeating: not at all 6. Feeling bad about yourself - or that you are a failure or have let yourself or your family down: not at all 7. Trouble concentrating on things, such as reading the newspaper or watching television: not at all 8. Moving or speaking so slowly that other people could have noticed. Or the opposite - being so fidgety or restless that you have been moving around a lot more than usual: not at all 9. Thoughts that you would be better off or of hurting yourself in some way: not at all Total score: 0 Depression Screening Interpretation: Negative Depression Screening Done: Yes Source: Developed by Drs. Tee Esqueda, Cami Betts, Zac Arellano and colleagues, with an educational naz from [employer]. Thrive Questionnaire Date Thrive assessed: 06/16/23 AUDIT C Alcohol Use Questionnaire (AUDIT-C) 1. How often do you have a drink containing alcohol?: Never Total Score: 0 Score Reviewed/Action Taken: Yes JOEL-7 AMB Questionnaire JEOL-7 Date JOEL - 7 assessed: 02/20/24 Source: Developed by Drs. Tee Esqueda, Cami Betts, Zac Arellano and colleagues, with an educational naz from [employer]. Review of Systems Const Denies chills, Denies headache(s) and Denies weight loss ENT Denies headache(s) Card Denies chest pain, Denies syncope, Denies irregular heart rhythm and Denies dyspnea Resp Denies chest congestion, Denies cough and Denies dyspnea GI Denies abdominal pain, Denies change in stool character, Denies nausea and Denies vomiting Musc Denies deformity and Denies joint swelling Neuro Denies syncope and Denies headache(s) Physical exam (Primary Care) Vital Signs: Last Vital Signs Pulse 76 12/15/23 13:07 BP 140/74 H 12/15/23 13:07 Pulse Ox 97 12/15/23 13:07 Oxygen Delivery Method Room Air 12/15/23 13:07 Tobacco/Smoking Status: Tobacco use Status Tobacco use date assessed 06/16/23 12/15/23 13:15 Patient Tobacco Use Status Never used Tobacco 12/15/23 13:15 e-Cigarette/Vaping Use Never Used 12/15/23 13:15 PHQ-9: PHQ-9 Score PHQ-9: Total score 0 12/15/23 13:16 Depression Screening Interpretation: Negative Thrive Assessment: Date of Thrive Assessment Date Thrive assessed 06/16/23 12/15/23 13:15 Const General: cooperative, comfortable, no acute distress and alert Neck Neck: Yes no lymphadenopathy Thyroid: Thyroid normal Resp Effort & Inspection: normal respiratory effort Auscultation: clear to auscultation bilaterally Percussion: percussion normal Cardio Jugular venous distension: no JVD Palpation: normal PMI Rate: regular rate Rhythm: regular rhythm Heart sounds: S1 normal heart sound present and S2 normal heart sound present GI Inspection: Yes normal to inspection Palpation (GI): No hepatosplenomegaly present Skin General skin exam: no rashes or lesions noted Extrem General: Yes no clubbing, cyanosis or edema Assessment and Plan Assessment & Plan (1) Hypertension: Code(s): I10 - Essential (primary) hypertension Plan: increase lisinopril to 20mg qd Medications: New lisinopril 20 mg PO DAILY 90 tabs 3RF Discontinued lisinopril Discontinued Reason: None 10 mg PO DAILY 90 tabs 3RF I10 - Essential (primary) hypertension Coding Level of Care Code Est Pt Level 3 (06600) Diagnoses Hypertension I10
== END 2023-12-15 16:08 | disposition home or self-care (01) ==
PROVIDERS: PCP Internal Medicine; Visit Provider Internal Medicine
DX: I10 Essential (primary) hypertension (principal)
CPT/HCPCS: 99213

== ENCOUNTER 2023-12-16 12:54 | Outpatient (AMB) | payer MEDICARE, SELFPAY ==
[2023-12-16 13:17] LABS: Prothrombin Time Whole Bld POC 28.2 sec (11.1-13.5); ~PT, ~INR - Anti Coag Clinic 2.3 (0.9-1.1)
--- NOTE | 2023-12-16 13:20 | MHC.OFFVISCO ---
Intake Intake Visit Reasons: Anticoagulation Allergies shrimp [SHRIMP] Allergy (Mild, Verified 12/16/23 13:03) HIVES No Known Drug Allergies Allergy (Unknown, Verified 12/16/23 13:03) Unknown Medication List - Last Reconciled 12/16/23 by Celeste Chong RN ammonium lactate 12% 1 appl topical BID apple cider vinegar PO BID atorvastatin 40 mg PO DAILY blood sugar diagnostic (Blood Glucose Test strips) test blood sugar twice a day blood-glucose meter TEST 2 TIMES DAILY blood-glucose meter (Accu-Chek Guide Glucose Meter) As directed cyanocobalamin (vitamin B-12) 1,000 mcg PO DAILY diltiazem HCl CD (Cardizem CD) 120 mg See Protocol PO DAILY esomeprazole magnesium (Nexium) 20 mg PO DAILY furosemide 20 mg PO DAILY glipizide 5 mg PO DAILY lancing device ACCU-CHECK DARLINE DEVICE lancing device (Adjustable Lancing Device) As directed lisinopril 20 mg PO DAILY multivitamin 1 tab PO DAILY phenytoin sodium extended 200 mg PO BID tizanidine 4 mg PO Q8H PRN triamcinolone acetonide 0.5% 1 appl topical TID warfarin 5 mg See Protocol PO DAILY Nursing Note NO CP,SOB,DIET/MEED CHANGES,FALLS OR SX OF BLEEDING. CONTINUE PRESENT DOSE AND FOLLOW-UP IN 3 WEEKS GOOD UNDERSTANDING OF DOSING INSTR. Anti-Coag Initial Assessment Social Hx Patient Tobacco Use Status: Never used Tobacco alcohol intake: never Alcohol intake frequency: a few times a month Coding Level of Care Code Est Patient Level 1 Diagnoses Current use of anticoagulant therapy Z79.01 Results AMB INR Fingerstick AMB INR Fingerstick 2.3 Last Edit by Celeste Chong RN on 12/16/23 13:13 Assessment & Plan Assessment & Plan (1) Current use of anticoagulant therapy: Code(s): Z79.01 - emt intermediate (current) use of 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
== END 2023-12-16 13:23 | disposition home or self-care (01) ==
LOC: HO.ACS 12:54
PROVIDERS: PCP Internal Medicine; Visit Provider Internal Medicine
DX: Z79.01 Long term (current) use of anticoagulants (principal)

== ENCOUNTER → 2023-12-16 12:54 | Outpatient (BNVA) | payer MEDICARE, SELFPAY | PROVIDERS: PCP Internal Medicine; Visit Provider Internal Medicine | DX: Z86.718 Personal history of other venous thrombosis and embolism (principal); Z79.01 Long term (current) use of anticoagulants; Z51.81 Encounter for therapeutic drug level monitoring | CPT/HCPCS: 85610; 99211 ==

== ENCOUNTER 2024-01-05 13:16 | Outpatient (AMB) | payer MEDICARE, SELFPAY ==
--- NOTE | 2024-01-05 13:28 | MHC.OFFVISCO ---
Intake Intake Visit Reasons: Anticoagulation Allergies shrimp [SHRIMP] Allergy (Mild, Verified 01/05/24 13:21) HIVES No Known Drug Allergies Allergy (Unknown, Verified 01/05/24 13:21) Unknown Medication List - Last Reconciled 01/05/24 by Bhakti Baez RN ammonium lactate 12% 1 appl topical BID apple cider vinegar PO BID atorvastatin 40 mg PO DAILY blood sugar diagnostic (Accu-Chek Guide test strips) As directed 2 times per day blood-glucose meter TEST 2 TIMES DAILY blood-glucose meter (Accu-Chek Guide Glucose Meter) As directed cyanocobalamin (vitamin B-12) 1,000 mcg PO DAILY diltiazem HCl CD (Cardizem CD) 120 mg See Protocol PO DAILY esomeprazole magnesium (Nexium) 20 mg PO DAILY furosemide 20 mg PO DAILY glipizide 5 mg PO DAILY lancing device ACCU-CHECK DARLINE DEVICE lancing device (Adjustable Lancing Device) As directed lisinopril 20 mg PO DAILY multivitamin 1 tab PO DAILY phenytoin sodium extended 200 mg PO BID tizanidine 4 mg PO Q8H PRN triamcinolone acetonide 0.5% 1 appl topical TID warfarin 5 mg See Protocol PO DAILY Nursing Note INR 3.2-?? out of therapeutic range of 2-3 Medications and supplements reviewed Patient status: no c.o Medications or supplements: no changes Diet: appetite good- pt states had increased reds- watermelon, strawberries Denies any signs and symptoms of bleeding or clotting or unusual bruising Bleeding, bruising, clotting discussed Nutritional guidance given: eat cooked greens to lower, no reds for 2 days Dose: 5mg x 2, 2.5mg x 5 F/U INR Date : 2 weeks? Patient verbalizing understanding of instructions given. Anti-Coag Initial Assessment Social Hx Patient Tobacco Use Status: Never used Tobacco alcohol intake: never Alcohol intake frequency: a few times a month Coding Level of Care Code Est Patient Level 1 Diagnoses Current use of anticoagulant therapy Z79.01 Assessment & Plan Assessment & Plan (1) Current use of anticoagulant therapy: Code(s): Z79.01 - [facility] (current) use of 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
[2024-01-05 13:29] LABS: ~PT, ~INR - Anti Coag Clinic 3.2 (0.9-1.1)
== END 2024-01-05 13:38 | disposition home or self-care (01) ==
LOC: HO.ACS 13:16
PROVIDERS: PCP Internal Medicine; Visit Provider Internal Medicine
DX: Z79.01 Long term (current) use of anticoagulants (principal)

== ENCOUNTER → 2024-01-05 13:16 | Outpatient (BNVA) | payer MEDICARE, SELFPAY | PROVIDERS: PCP Internal Medicine; Visit Provider Internal Medicine | DX: Z86.718 Personal history of other venous thrombosis and embolism (principal); Z79.01 Long term (current) use of anticoagulants; Z51.81 Encounter for therapeutic drug level monitoring | CPT/HCPCS: 85610; 99211 ==

== ENCOUNTER 2024-01-19 13:00 | Outpatient (AMB) | payer MEDICARE, SELFPAY ==
--- NOTE | 2024-01-19 13:05 | MHC.OFFVISCO ---
Intake Intake Visit Reasons: Anticoagulation Allergies shrimp [SHRIMP] Allergy (Mild, Verified 01/19/24 13:01) HIVES No Known Drug Allergies Allergy (Unknown, Verified 01/19/24 13:01) Unknown Medication List - Last Reconciled 01/19/24 by Bhakti Baez RN ammonium lactate 12% 1 appl topical BID apple cider vinegar PO BID atorvastatin 40 mg PO DAILY blood sugar diagnostic (Accu-Chek Guide test strips) As directed 2 times per day blood-glucose meter TEST 2 TIMES DAILY blood-glucose meter (Accu-Chek Guide Glucose Meter) As directed cyanocobalamin (vitamin B-12) 1,000 mcg PO DAILY diltiazem HCl CD (Cardizem CD) 120 mg See Protocol PO DAILY esomeprazole magnesium (Nexium) 20 mg PO DAILY furosemide 20 mg PO DAILY glipizide 5 mg PO DAILY lancing device ACCU-CHECK DARLINE DEVICE lancing device (Adjustable Lancing Device) As directed lisinopril 20 mg PO DAILY multivitamin 1 tab PO DAILY phenytoin sodium extended 200 mg PO BID tizanidine 4 mg PO Q8H PRN triamcinolone acetonide 0.5% 1 appl topical TID warfarin 5 mg See Protocol PO DAILY Nursing Note INR 1.8-? out of therapeutic range of 2-3 Medications and supplements reviewed Patient status: pt unsure if missed a dose yesterday Medications or supplements: no changes Diet: appetitie is good Denies any signs and symptoms of bleeding or clotting or unusual bruising Bleeding, bruising, clotting discussed Nutritional guidance given: no greens for 2 days, eat a red today Dose: 5mg today then cont reg dosing 5mg x 2, 2.5mg x 5 F/U INR Date : pt req 1 week?? Patient verbalizing understanding of instructions given. Anti-Coag Initial Assessment Social Hx Patient Tobacco Use Status: Never used Tobacco alcohol intake: never Alcohol intake frequency: a few times a month Coding Level of Care Code Est Patient Level 1 Diagnoses Current use of anticoagulant therapy Z79.01 Assessment & Plan Assessment & Plan (1) Current use of anticoagulant therapy: Code(s): Z79.01 - [employer] (current) use of 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
[2024-01-19 13:06] LABS: Prothrombin Time Whole Bld POC 21.4 sec (11.1-13.5); ~PT, ~INR - Anti Coag Clinic 1.8 (0.9-1.1)
== END 2024-01-19 13:59 | disposition home or self-care (01) ==
LOC: HO.ACS 13:00
PROVIDERS: PCP Internal Medicine; Visit Provider Internal Medicine
DX: Z79.01 Long term (current) use of anticoagulants (principal)

== ENCOUNTER → 2024-01-19 13:00 | Outpatient (BNVA) | payer MEDICARE, SELFPAY | PROVIDERS: PCP Internal Medicine; Visit Provider Internal Medicine | DX: Z86.718 Personal history of other venous thrombosis and embolism (principal); Z79.01 Long term (current) use of anticoagulants; Z51.81 Encounter for therapeutic drug level monitoring | CPT/HCPCS: 85610; 99211 ==

== ENCOUNTER 2024-01-27 13:01 | Outpatient (AMB) | payer MEDICARE, MEDICAID, SELFPAY ==
--- NOTE | 2024-01-27 13:21 | MHC.OFFVISCO ---
Intake Intake Visit Reasons: Anticoagulation Allergies shrimp [SHRIMP] Allergy (Mild, Verified 01/27/24 13:16) HIVES No Known Drug Allergies Allergy (Unknown, Verified 01/27/24 13:16) Unknown Medication List - Last Reconciled 01/27/24 by Bhakti Baez RN ammonium lactate 12% 1 appl topical BID apple cider vinegar PO BID atorvastatin 40 mg PO DAILY blood sugar diagnostic (Accu-Chek Guide test strips) As directed 2 times per day blood-glucose meter TEST 2 TIMES DAILY blood-glucose meter (Accu-Chek Guide Glucose Meter) As directed cyanocobalamin (vitamin B-12) 1,000 mcg PO DAILY diltiazem HCl CD (Cardizem CD) 120 mg See Protocol PO DAILY esomeprazole magnesium (Nexium) 20 mg PO DAILY furosemide 20 mg PO DAILY glipizide 5 mg PO DAILY lancing device ACCU-CHECK DARLINE DEVICE lancing device (Adjustable Lancing Device) As directed lisinopril 20 mg PO DAILY multivitamin 1 tab PO DAILY phenytoin sodium extended 200 mg PO BID tizanidine 4 mg PO Q8H PRN triamcinolone acetonide 0.5% 1 appl topical TID warfarin 5 mg See Protocol PO DAILY Nursing Note INR: 2.0- in therapeutic range of 2-3 Medications and supplements reviewed No changes in health, diet, medications, or supplements, Denies any signs and symptoms of bleeding or bruising or clotting. Bleeding, bruising, clotting discussed Nutritional guidance given - no greens for 2 days, eat a red today Dose: pt states self dosed one day last week- took an extra 2.5mg due to leg pain, she req increase in weekly dosing 5mg x 3, 2.5mg x 4 F/U INR: 1 week Patient verbalizes understanding of instructions given Anti-Coag Initial Assessment Social Hx Patient Tobacco Use Status: Never used Tobacco alcohol intake: never Alcohol intake frequency: a few times a month Coding Level of Care Code Est Patient Level 1 Diagnoses Current use of anticoagulant therapy Z79.01 Assessment & Plan Assessment & Plan (1) Current use of anticoagulant therapy: Code(s): Z79.01 - [facility] (current) use of 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
[2024-01-27 13:22] LABS: Prothrombin Time Whole Bld POC 23.6 sec (11.1-13.5)
== END 2024-01-27 13:47 | disposition home or self-care (01) ==
PROVIDERS: PCP Internal Medicine; Visit Provider Internal Medicine
DX: Z79.01 Long term (current) use of anticoagulants (principal)

== ENCOUNTER → 2024-01-27 13:01 | Outpatient (BNVA) | payer MEDICARE, MEDICAID, SELFPAY | PROVIDERS: PCP Internal Medicine; Visit Provider Internal Medicine | DX: Z86.718 Personal history of other venous thrombosis and embolism (principal); Z79.01 Long term (current) use of anticoagulants; Z51.81 Encounter for therapeutic drug level monitoring | CPT/HCPCS: 85610; 99211 ==

== ENCOUNTER 2024-02-01 13:11 | Outpatient (AMB) | payer MEDICARE, MEDICAID, SELFPAY ==
[2024-02-01 13:35] LABS: Prothrombin Time Whole Bld POC 27.8 sec (11.1-13.5); ~PT, ~INR - Anti Coag Clinic 2.3 (0.9-1.1)
--- NOTE | 2024-02-01 13:46 | MHC.OFFVISCO ---
Intake Intake Visit Reasons: Anticoagulation Allergies shrimp [SHRIMP] Allergy (Mild, Verified 02/01/24 13:28) HIVES No Known Drug Allergies Allergy (Unknown, Verified 02/01/24 13:28) Unknown Medication List - Last Reconciled 02/01/24 by Lubna Layne RN ammonium lactate 12% 1 appl topical BID apple cider vinegar PO BID atorvastatin 40 mg PO DAILY blood sugar diagnostic (Accu-Chek Guide test strips) As directed 2 times per day blood-glucose meter TEST 2 TIMES DAILY blood-glucose meter (Accu-Chek Guide Glucose Meter) As directed cyanocobalamin (vitamin B-12) 1,000 mcg PO DAILY diltiazem HCl CD (Cardizem CD) 120 mg See Protocol PO DAILY esomeprazole magnesium (Nexium) 20 mg PO DAILY furosemide 20 mg PO DAILY glipizide 5 mg PO DAILY lancing device ACCU-CHECK DARLINE DEVICE lancing device (Adjustable Lancing Device) As directed lisinopril 20 mg PO DAILY multivitamin 1 tab PO DAILY phenytoin sodium extended 200 mg PO BID tizanidine 4 mg PO Q8H PRN triamcinolone acetonide 0.5% 1 appl topical TID warfarin 5 mg See Protocol PO DAILY Nursing Note INR: 2.3 in therapeutic range Medications and supplements reviewed No changes in health, diet, medications, or supplements, Denies any signs and symptoms of bleeding or bruising or clotting. Bleeding, bruising, clotting discussed Nutritional guidance given - EAT A MIX OF FRUITS AND VEGETABLES, RESUME WEEKLY GREENS Dose: 5MG X 3 DAYS/ 2.5MG X 4 DAYS F/U INR: 2 WEEKS DUE TO INCREASE DOSE Patient verbalizes understanding of instructions given Anti-Coag Initial Assessment Social Hx Patient Tobacco Use Status: Never used Tobacco alcohol intake: never Alcohol intake frequency: a few times a month Coding Level of Care Code Est Patient Level 1 Diagnoses Current use of anticoagulant therapy Z79.01 Results AMB INR Fingerstick AMB INR Fingerstick 2.3 Last Edit by Lubna Layne RN on 02/01/24 13:39 MANUAL ENTRY Assessment & Plan Assessment & Plan (1) Current use of anticoagulant therapy: Code(s): Z79.01 - [facility] (current) use of 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
== END 2024-02-01 13:48 | disposition home or self-care (01) ==
LOC: HO.ACS 13:11
PROVIDERS: PCP Internal Medicine; Visit Provider Internal Medicine
DX: Z79.01 Long term (current) use of anticoagulants (principal)

== ENCOUNTER → 2024-02-01 13:11 | Outpatient (BNVA) | payer MEDICARE, MEDICAID, SELFPAY | PROVIDERS: PCP Internal Medicine; Visit Provider Internal Medicine | DX: Z86.718 Personal history of other venous thrombosis and embolism (principal); Z79.01 Long term (current) use of anticoagulants; Z51.81 Encounter for therapeutic drug level monitoring | CPT/HCPCS: 85610; 99211 ==

== ENCOUNTER 2024-02-15 13:04 | Outpatient (AMB) | payer MEDICARE, MEDICAID, SELFPAY ==
--- NOTE | 2024-02-15 13:26 | MHC.OFFVISCO ---
Intake Intake Visit Reasons: Anticoagulation Allergies shrimp [SHRIMP] Allergy (Mild, Verified 02/15/24 13:11) HIVES No Known Drug Allergies Allergy (Unknown, Verified 02/15/24 13:11) Unknown Medication List - Last Reconciled 02/15/24 by Clover Granados, RN ammonium lactate 12% 1 appl topical BID apple cider vinegar PO BID atorvastatin 40 mg PO DAILY blood sugar diagnostic (Accu-Chek Guide test strips) As directed 2 times per day blood-glucose meter TEST 2 TIMES DAILY blood-glucose meter (Accu-Chek Guide Glucose Meter) As directed cyanocobalamin (vitamin B-12) 1,000 mcg PO DAILY diltiazem HCl CD (Cardizem CD) 120 mg See Protocol PO DAILY esomeprazole magnesium (Nexium) 20 mg PO DAILY furosemide 20 mg PO DAILY glipizide 5 mg PO DAILY lancing device ACCU-CHECK DARLINE DEVICE lancing device (Adjustable Lancing Device) As directed lisinopril 20 mg PO DAILY multivitamin 1 tab PO DAILY phenytoin sodium extended 200 mg PO BID tizanidine 4 mg PO Q8H PRN triamcinolone acetonide 0.5% 1 appl topical TID warfarin 5 mg See Protocol PO DAILY Nursing Note INR: 2.9 in therapeutic range of 2-3 Medications and supplements reviewed No changes in health, diet, medications, or supplements, Denies any signs and symptoms of bleeding or bruising or clotting. Bleeding, bruising, clotting discussed Nutritional guidance given Dose: 2.5mg X 4 days and 5mg X 3 days F/U INR: 2 weeks Patient verbalizes understanding of instructions given Anti-Coag Initial Assessment Social Hx Patient Tobacco Use Status: Never used Tobacco alcohol intake: never Alcohol intake frequency: a few times a month Coding Level of Care Code Est Patient Level 1 Diagnoses Current use of anticoagulant therapy Z79.01 Results AMB INR Fingerstick AMB INR Fingerstick 2.9 Last Edit by Clover Granados RN on 02/15/24 13:22 interface delay Assessment & Plan Assessment & Plan (1) Current use of anticoagulant therapy: Code(s): Z79.01 - senior living (current) use of 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
[2024-02-15 13:28] LABS: Prothrombin Time Whole Bld POC 34.7 sec (11.1-13.5); ~PT, ~INR - Anti Coag Clinic 2.9 (0.9-1.1)
== END 2024-02-15 13:29 | disposition home or self-care (01) ==
LOC: HO.ACS 13:04
PROVIDERS: PCP Internal Medicine; Visit Provider Internal Medicine
DX: Z79.01 Long term (current) use of anticoagulants (principal)

== ENCOUNTER → 2024-02-15 13:04 | Outpatient (BNVA) | payer MEDICARE, MEDICAID, SELFPAY | PROVIDERS: PCP Internal Medicine; Visit Provider Internal Medicine | DX: Z86.718 Personal history of other venous thrombosis and embolism (principal); Z79.01 Long term (current) use of anticoagulants; Z51.81 Encounter for therapeutic drug level monitoring | CPT/HCPCS: 85610; 99211 ==

== ENCOUNTER 2024-02-18 13:40 | Outpatient (AMB) | payer MEDICARE, MEDICAID, SELFPAY ==
[2024-02-18 13:44] VITALS: PULSE 78; O2SAT 98
--- NOTE | 2024-02-18 13:44 | MHC.PC.OV ---
Vital Signs 02/18/24 13:44 Height 5 ft 2 in BMI Reason not done Patient refused/unable BP not taken reason Patient Refused Pulse 78 Pulse Source Pulse Oximeter Pulse Oximetry (%) 98 Oxygen Delivery Method Room Air Intake Visit Reasons: bug bite Intake Note: Pt reports that wound care told her she needs a machine that will promote circulation in her LT leg where the bug bite is. She also has a rash her RT leg from some cream, it was itchy but has stopped. She is requesting to get checked for a UTI, blood infection and possibly a mammogram. Pt refused BP because it felt too tight. 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 Accompanied by: Self / Same As Patient Allergies shrimp [SHRIMP] Allergy (Mild, Verified 02/18/24 13:44) HIVES No Known Drug Allergies Allergy (Unknown, Verified 02/18/24 13:44) Unknown Medication List - Last Reconciled 02/19/24 by Jerry Spain MD ammonium lactate 12% 1 appl topical BID apple cider vinegar PO BID atorvastatin 40 mg PO DAILY blood sugar diagnostic (Accu-Chek Guide test strips) As directed 2 times per day blood-glucose meter TEST 2 TIMES DAILY blood-glucose meter (Accu-Chek Guide Glucose Meter) As directed cephalexin 250 mg PO Q6H cephalexin 250 mg PO Q6H cyanocobalamin (vitamin B-12) 1,000 mcg PO DAILY diltiazem HCl CD (Cardizem CD) 120 mg See Protocol PO DAILY esomeprazole magnesium (Nexium) 20 mg PO DAILY furosemide 20 mg PO DAILY glipizide 5 mg PO DAILY lancing device ACCU-CHECK DARLINE DEVICE lancing device (Adjustable Lancing Device) As directed lisinopril 20 mg PO DAILY multivitamin 1 tab PO DAILY phenytoin sodium extended 200 mg PO BID tizanidine 4 mg PO Q8H PRN triamcinolone acetonide 0.5% 1 appl topical TID warfarin 5 mg See Protocol PO DAILY Tobacco use date assessed: 06/16/23 Fall risk assessment: No Falls in past year Last assessed Fall Risk: 02/18/24 Dental Screening Dental Screen Date: 06/16/23 HPI bug bite HPI Details insect bite left lower extremity; red and infected PFSH Medical History Factor V Leiden DVT (deep venous thrombosis) Hyperlipidemia Hypertension Diabetes mellitus with coincident hypertension Surgical History History of lumpectomy of right breast History of appendectomy History of cholecystectomy Family History Father Asthma Mother Diabetes Hypertension Colon cancer Other Substance use disorder Social History Household Members: None Housing: Apartment Do you presently have visiting nurse or other home services: No Alcohol intake: never Patient Tobacco Use Status: Never used Tobacco Tobacco use type: Cigarette e-Cigarette/Vaping Use: Never Used Second Hand Smoke Exposure: No Advance Directives Date on File: 02/03/23 service: No Current occupational status: employed Cognitive needs: No Hearing needs: No Vision needs: No Questionnaire Thrive Questionnaire Date Thrive assessed: 06/16/23 JOEL-7 AMB Questionnaire JOEL-7 Date JOEL - 7 assessed: 06/16/23 Source: Developed by Drs. Tee Esqueda, Cami Betts, Zac Arellano and colleagues, with an educational naz from [employer]. Review of Systems Const Denies chills, Denies headache(s) and Denies weight loss ENT Denies headache(s) Card Denies chest pain, Denies syncope, Denies irregular heart rhythm and Denies dyspnea Resp Denies chest congestion, Denies cough and Denies dyspnea GI Denies abdominal pain, Denies change in stool character, Denies nausea and Denies vomiting Musc Denies deformity and Denies joint swelling Neuro Denies syncope and Denies headache(s) Physical exam (Primary Care) Vital Signs: Last Vital Signs Pulse 78 02/18/24 13:44 Pulse Ox 98 02/18/24 13:44 Oxygen Delivery Method Room Air 02/18/24 13:44 Tobacco/Smoking Status: Tobacco use Status Tobacco use date assessed 06/16/23 02/18/24 13:51 Patient Tobacco Use Status Never used Tobacco 02/18/24 13:51 Tobacco use type Cigarette 02/18/24 13:51 e-Cigarette/Vaping Use Never Used 02/18/24 13:51 Thrive Assessment: Date of Thrive Assessment Date Thrive assessed 06/16/23 02/18/24 13:51 Const General: cooperative, comfortable, no acute distress and alert Neck Neck: Yes no lymphadenopathy Thyroid: Thyroid normal Resp Effort & Inspection: normal respiratory effort Auscultation: clear to auscultation bilaterally Percussion: percussion normal Cardio Jugular venous distension: no JVD Palpation: normal PMI Rate: regular rate Rhythm: regular rhythm Heart sounds: S1 normal heart sound present and S2 normal heart sound present GI Inspection: Yes normal to inspection Palpation (GI): No hepatosplenomegaly present Skin Other: cellulitis left lower extremity Extrem General: Yes no clubbing, cyanosis or edema Coding Level of Care Code Est Pt Level 3 (31206) Diagnoses Cellulitis L03.90 Assessment & Plan Assessment & Plan (1) Cellulitis: Code(s): L03.90 - Cellulitis, unspecified Plan: rx sent Medications: New cephalexin 250 mg PO Q6H 20 caps 0RF cephalexin 250 mg PO Q6H 20 caps 0RF
== END 2024-02-18 15:35 | disposition home or self-care (01) ==
PROVIDERS: PCP Internal Medicine; Visit Provider Internal Medicine
DX: L03.90 Cellulitis, unspecified (principal)

== ENCOUNTER → 2024-02-18 13:40 | Outpatient (BNVA) | payer MEDICARE, MEDICAID, SELFPAY | PROVIDERS: PCP Internal Medicine; Visit Provider Internal Medicine | DX: L03.90 Cellulitis, unspecified (principal) | CPT/HCPCS: 99212 ==

== ENCOUNTER 2024-02-29 13:01 | Outpatient (AMB) | payer MEDICARE, MEDICAID, SELFPAY ==
--- NOTE | 2024-02-29 13:15 | MHC.OFFVISCO ---
Intake Intake Visit Reasons: Anticoagulation Allergies shrimp [SHRIMP] Allergy (Mild, Verified 02/29/24 13:08) HIVES No Known Drug Allergies Allergy (Unknown, Verified 02/29/24 13:08) Unknown Medication List - Last Reconciled 02/29/24 by Bhakti Baez RN ammonium lactate 12% 1 appl topical BID apple cider vinegar PO BID atorvastatin 40 mg PO DAILY blood sugar diagnostic (Accu-Chek Guide test strips) As directed 2 times per day blood-glucose meter TEST 2 TIMES DAILY blood-glucose meter (Accu-Chek Guide Glucose Meter) As directed cyanocobalamin (vitamin B-12) 1,000 mcg PO DAILY diltiazem HCl CD (Cardizem CD) 120 mg See Protocol PO DAILY esomeprazole magnesium (Nexium) 20 mg PO DAILY furosemide 20 mg PO DAILY glipizide 5 mg PO DAILY lancing device ACCU-CHECK DARLINE DEVICE lancing device (Adjustable Lancing Device) As directed lisinopril 20 mg PO DAILY multivitamin 1 tab PO DAILY phenytoin sodium extended 200 mg PO BID tizanidine 4 mg PO Q8H PRN triamcinolone acetonide 0.5% 1 appl topical TID warfarin 5 mg See Protocol PO DAILY Nursing Note INR 1.7-?? out of therapeutic range of 2-3 pt denies missed dose Medications and supplements reviewed Patient status: pt states had cellulitis Medications or supplements: finished antibiotics last week, cephalexin 250mg q 6 hours , did not call acs Diet: appetite same, taking boost or ensure daily for bkfst Denies any signs and symptoms of bleeding or clotting or unusual bruising Bleeding, bruising, clotting discussed Nutritional guidance given: eat reds to raise, no greens for 2-3 days Dose: 5mg today and tomm then cont 5mg x 3, 2.5mg x 4 F/U INR Date : pt req 2 weeks Patient verbalizing understanding of instructions given. 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
[2024-02-29 13:16] LABS: ~PT, ~INR - Anti Coag Clinic 1.7 (0.9-1.1)
== END 2024-02-29 13:27 | disposition home or self-care (01) ==
LOC: HO.ACS 13:01
PROVIDERS: PCP Internal Medicine; Visit Provider Internal Medicine
DX: Z79.01 Long term (current) use of anticoagulants (principal)

== ENCOUNTER → 2024-02-29 13:01 | Outpatient (BNVA) | payer MEDICARE, MEDICAID, SELFPAY | PROVIDERS: PCP Internal Medicine; Visit Provider Internal Medicine | DX: Z86.718 Personal history of other venous thrombosis and embolism (principal); Z79.01 Long term (current) use of anticoagulants; Z51.81 Encounter for therapeutic drug level monitoring | CPT/HCPCS: 85610; 99211 ==

== ENCOUNTER 2024-03-08 09:48 | Outpatient (AMB) | payer MEDICARE, MEDICAID, SELFPAY ==
--- NOTE | 2024-03-08 09:56 | MHC.OFFVISCO ---
Intake Intake Visit Reasons: Anticoagulation Allergies shrimp [SHRIMP] Allergy (Mild, Verified 03/08/24 09:52) HIVES No Known Drug Allergies Allergy (Unknown, Verified 03/08/24 09:52) Unknown Medication List - Last Reconciled 03/08/24 by Bhakti Baze RN ammonium lactate 12% 1 appl topical BID apple cider vinegar PO BID atorvastatin 40 mg PO DAILY blood sugar diagnostic (Accu-Chek Guide test strips) As directed 2 times per day blood-glucose meter TEST 2 TIMES DAILY blood-glucose meter (Accu-Chek Guide Glucose Meter) As directed cephalexin 250 mg PO QID cyanocobalamin (vitamin B-12) 1,000 mcg PO DAILY diltiazem HCl CD (Cardizem CD) 120 mg See Protocol PO DAILY esomeprazole magnesium (Nexium) 20 mg PO DAILY furosemide 20 mg PO DAILY glipizide 5 mg PO DAILY lancing device ACCU-CHECK DARLINE DEVICE lancing device (Adjustable Lancing Device) As directed lisinopril 20 mg PO DAILY multivitamin 1 tab PO DAILY phenytoin sodium extended 200 mg PO BID tizanidine 4 mg PO Q8H PRN triamcinolone acetonide 0.5% 1 appl topical TID warfarin 5 mg See Protocol PO DAILY Nursing Note INR 1.5-? out of therapeutic range of 2-3 pt denies missed dose Medications and supplements reviewed Patient status: pt states wound left medial lower leg, goes to wound clinic weekly Medications or supplements: cephalexin 250mg qid x 5 days per prashant Diet: same Denies any signs and symptoms of bleeding or clotting or unusual bruising Bleeding, bruising, clotting discussed Nutritional guidance given: no greens for 2 days, eat a red today Dose: 5mg today then cont 5mg x 3, 2.5mg x 4 F/U INR Date : thursday03/11/24 Patient verbalizing understanding of instructions given. pcp office called with low inr/dosing and f/u appt. 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
[2024-03-08 09:58] LABS: Prothrombin Time Whole Bld POC 18.4 sec (11.1-13.5); ~PT, ~INR - Anti Coag Clinic 1.5 (0.9-1.1)
== END 2024-03-08 10:11 | disposition home or self-care (01) ==
LOC: HO.ACS 09:48
PROVIDERS: PCP Internal Medicine; Visit Provider Internal Medicine
DX: Z79.01 Long term (current) use of anticoagulants (principal)

== ENCOUNTER → 2024-03-08 09:48 | Outpatient (BNVA) | payer MEDICARE, MEDICAID, SELFPAY | PROVIDERS: PCP Internal Medicine; Visit Provider Internal Medicine | DX: Z86.718 Personal history of other venous thrombosis and embolism (principal); Z79.01 Long term (current) use of anticoagulants; Z51.81 Encounter for therapeutic drug level monitoring | CPT/HCPCS: 85610; 99211 ==

== ENCOUNTER 2024-03-11 13:01 | Outpatient (AMB) | payer MEDICARE, MEDICAID, SELFPAY ==
[2024-03-11 13:10] LABS: Prothrombin Time Whole Bld POC 27.3 sec (11.1-13.5); ~PT, ~INR - Anti Coag Clinic 2.3 (0.9-1.1)
--- NOTE | 2024-03-11 13:23 | MHC.OFFVISCO ---
Intake Intake Visit Reasons: Anticoagulation Allergies shrimp [SHRIMP] Allergy (Mild, Verified 03/11/24 13:02) HIVES No Known Drug Allergies Allergy (Unknown, Verified 03/11/24 13:02) Unknown Medication List - Last Reconciled 03/11/24 by Lubna Layne RN ammonium lactate 12% 1 appl topical BID apple cider vinegar PO BID atorvastatin 40 mg PO DAILY blood sugar diagnostic (Accu-Chek Guide test strips) As directed 2 times per day blood-glucose meter TEST 2 TIMES DAILY blood-glucose meter (Accu-Chek Guide Glucose Meter) As directed cephalexin 250 mg PO QID cyanocobalamin (vitamin B-12) 1,000 mcg PO DAILY diltiazem HCl CD (Cardizem CD) 120 mg See Protocol PO DAILY esomeprazole magnesium (Nexium) 20 mg PO DAILY furosemide 20 mg PO DAILY glipizide 5 mg PO DAILY lancing device ACCU-CHECK DARLINE DEVICE lancing device (Adjustable Lancing Device) As directed lisinopril 20 mg PO DAILY multivitamin 1 tab PO DAILY phenytoin sodium extended 200 mg PO BID tizanidine 4 mg PO Q8H PRN triamcinolone acetonide 0.5% 1 appl topical TID warfarin 5 mg See Protocol PO DAILY Nursing Note INR: 2.3 in therapeutic range ON ANTBX 2 MORE DAYS CEPHALEXIN FOR LEG WOUND - WOUND CLINIC MONITORING HER B/P 174/72 ENC TO ONLY TO HAVE 1 CUP OF COFEE /DAY, SLOW DEEP BREATHE, LIMIT SODIUM AND DISCUSS WITH MD PT STATES THAT SHE HAD INCREASED HER WARFARIN DOSE A WEEK OR SO AGO WHEN HER TOES WERE HURTING HER- WALKING MORE - SHE CAME TO CLINIC AND HER INR WAS 1.5- AFTER ANTBX TREATMENT - MAY INCREASE HER WEEKLY DOSE Denies any signs and symptoms of bleeding or bruising or clotting. Bleeding, bruising, clotting discussed Nutritional guidance given - CONT TO EAT A MIX OF FRUITS AND VEGETABLES Dose: KEEP SAME FOR NOW DUE TO ANTBX 5MG X 3 DAYS/ 2.5MG X 4 DAYS - THEN AFTER ANTBX OUT HER SYSTEM INCREASE DOSE 5MG X 4 DAYS/ 2.5MG X 3 DAYS F/U INR: 1 WEEK Patient verbalizes understanding of instructions given Anti-Coag Initial Assessment Social Hx Patient Tobacco Use Status: Never used Tobacco Tobacco use type: Cigarette alcohol intake: never Alcohol intake frequency: a few times a month Coding Level of Care Code Est Patient Level 1 Diagnoses Current use of anticoagulant therapy Z79.01 Results AMB INR Fingerstick AMB INR Fingerstick 2.3 Last Edit by Lbuna Layne RN on 03/11/24 13:13 MANUAL ENTRY Assessment & Plan Assessment & Plan (1) Current use of anticoagulant therapy: 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
== END 2024-03-11 13:30 | disposition home or self-care (01) ==
LOC: HO.ACS 13:01
PROVIDERS: PCP Internal Medicine; Visit Provider Internal Medicine
DX: Z79.01 Long term (current) use of anticoagulants (principal)

== ENCOUNTER → 2024-03-11 13:01 | Outpatient (BNVA) | payer MEDICARE, MEDICAID, SELFPAY | PROVIDERS: PCP Internal Medicine; Visit Provider Internal Medicine | DX: Z86.718 Personal history of other venous thrombosis and embolism (principal); Z79.01 Long term (current) use of anticoagulants; Z51.81 Encounter for therapeutic drug level monitoring | CPT/HCPCS: 85610; 99211 ==

== ENCOUNTER 2024-03-21 13:16 | Outpatient (AMB) | payer MEDICARE, MEDICAID, SELFPAY ==
[2024-03-21 13:32] LABS: Prothrombin Time Whole Bld POC 22.9 sec (11.1-13.5); ~PT, ~INR - Anti Coag Clinic 1.9 (0.9-1.1)
--- NOTE | 2024-03-21 13:45 | MHC.OFFVISCO ---
Intake Intake Visit Reasons: Anticoagulation Allergies shrimp [SHRIMP] Allergy (Mild, Verified 03/21/24 13:28) HIVES No Known Drug Allergies Allergy (Unknown, Verified 03/21/24 13:28) Unknown Medication List - Last Reconciled 03/21/24 by Clover Granados RN ammonium lactate 12% 1 appl topical BID apple cider vinegar PO BID atorvastatin 40 mg PO DAILY blood sugar diagnostic (Accu-Chek Guide test strips) As directed 2 times per day blood-glucose meter TEST 2 TIMES DAILY blood-glucose meter (Accu-Chek Guide Glucose Meter) As directed cephalexin 250 mg PO QID cyanocobalamin (vitamin B-12) 1,000 mcg PO DAILY diltiazem HCl CD (Cardizem CD) 120 mg See Protocol PO DAILY esomeprazole magnesium (Nexium) 20 mg PO DAILY furosemide 20 mg PO DAILY glipizide 5 mg PO DAILY lancing device ACCU-CHECK DARLINE DEVICE lancing device (Adjustable Lancing Device) As directed lisinopril 20 mg PO DAILY multivitamin 1 tab PO DAILY phenytoin sodium extended 200 mg PO BID tizanidine 4 mg PO Q8H PRN triamcinolone acetonide 0.5% 1 appl topical TID warfarin 5 mg See Protocol PO DAILY Nursing Note INR 1.9?out of therapeutic range 2-3 Medications and supplements reviewed Patient status: usual state of health Medications or supplements: no changes, completed course of antibiotics for wound on ankle which is improved Diet: usual diet for pt Denies any signs and symptoms of bleeding or clotting or unusual bruising Bleeding, bruising, clotting discussed Nutritional guidance given: to balance reds and greens Dose: increase weekly dose to 5mg X 4 days and 2.5mg X 3 days in addition to increasing today's dose to 5mg F/U INR Date : 1 week?? Patient verbalizing understanding of instructions given. 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
== END 2024-03-21 13:49 | disposition home or self-care (01) ==
LOC: HO.ACS 13:16
PROVIDERS: PCP Internal Medicine; Visit Provider Internal Medicine
DX: Z79.01 Long term (current) use of anticoagulants (principal)

== ENCOUNTER → 2024-03-21 13:16 | Outpatient (BNVA) | payer MEDICARE, MEDICAID, SELFPAY | PROVIDERS: PCP Internal Medicine; Visit Provider Internal Medicine | DX: Z86.718 Personal history of other venous thrombosis and embolism (principal); Z79.01 Long term (current) use of anticoagulants; Z51.81 Encounter for therapeutic drug level monitoring | CPT/HCPCS: 85610; 99211 ==

== ENCOUNTER 2024-03-28 13:04 | Outpatient (AMB) | payer MEDICARE, MEDICAID, SELFPAY ==
[2024-03-28 13:13] LABS: Prothrombin Time Whole Bld POC 30.1 sec (11.1-13.5); ~PT, ~INR - Anti Coag Clinic 2.5 (0.9-1.1)
--- NOTE | 2024-03-28 13:32 | MHC.OFFVISCO ---
Intake Intake Visit Reasons: Anticoagulation Allergies shrimp [SHRIMP] Allergy (Mild, Verified 03/28/24 13:04) HIVES No Known Drug Allergies Allergy (Unknown, Verified 03/28/24 13:04) Unknown Medication List - Last Reconciled 03/28/24 by Clover Granados, RN ammonium lactate 12% 1 appl topical BID apple cider vinegar PO BID atorvastatin 40 mg PO DAILY blood sugar diagnostic (Accu-Chek Guide test strips) As directed 2 times per day blood-glucose meter TEST 2 TIMES DAILY blood-glucose meter (Accu-Chek Guide Glucose Meter) As directed cephalexin 250 mg PO QID cyanocobalamin (vitamin B-12) 1,000 mcg PO DAILY diltiazem HCl CD (Cardizem CD) 120 mg See Protocol PO DAILY esomeprazole magnesium (Nexium) 20 mg PO DAILY furosemide 20 mg PO DAILY glipizide 5 mg PO DAILY lancing device ACCU-CHECK DARLINE DEVICE lancing device (Adjustable Lancing Device) As directed lisinopril 20 mg PO DAILY multivitamin 1 tab PO DAILY phenytoin sodium extended 200 mg PO BID tizanidine 4 mg PO Q8H PRN triamcinolone acetonide 0.5% 1 appl topical TID warfarin 5 mg See Protocol PO DAILY Nursing Note INR: 2.5 in therapeutic range of 2-3 Medications and supplements reviewed No changes in health, diet, medications, or supplements, Denies any signs and symptoms of bleeding or bruising or clotting. Bleeding, bruising, clotting discussed Nutritional guidance given Dose: 5mg X 4 days and 2.5mg X 3 days F/U INR: 2 weeks Patient verbalizes understanding of instructions given Anti-Coag Initial Assessment Social Hx Patient Tobacco Use Status: Never used Tobacco Tobacco use type: Cigarette alcohol intake: never Alcohol intake frequency: a few times a month Coding Level of Care Code Est Patient Level 1 Diagnoses Current use of anticoagulant therapy Z79.01 Assessment & Plan Assessment & Plan (1) Current use of anticoagulant therapy: Code(s): Z79.01 - shelter (current) use of 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
== END 2024-03-28 13:39 | disposition home or self-care (01) ==
LOC: HO.ACS 13:04
PROVIDERS: PCP Internal Medicine; Visit Provider Internal Medicine
DX: Z79.01 Long term (current) use of anticoagulants (principal)

== ENCOUNTER 2024-04-04 08:39 | Outpatient (AMB) | payer MEDICARE, MEDICAID, SELFPAY ==
[2024-04-04 08:43] VITALS: BP 138/72; PULSE 76; O2SAT 97; BMI 40.6
--- NOTE | 2024-04-04 08:43 | MHC.PC.OV ---
Vital Signs 04/04/24 08:43 Height 5 ft 2 in Weight 222 lb BMI 40.6 BP 138/72 Blood Pressure Location Lt brachial Position Sitting Pulse 76 Pulse Source Pulse Oximeter Pulse Oximetry (%) 97 Oxygen Delivery Method Room Air Intake Visit Reasons: Medication refill Allergies shrimp [SHRIMP] Allergy (Mild, Verified 04/04/24 08:43) HIVES No Known Drug Allergies Allergy (Unknown, Verified 04/04/24 08:43) Unknown Medication List - Last Reconciled 04/04/24 by Jerry Spain MD ammonium lactate 12% 1 appl topical BID apple cider vinegar PO BID atorvastatin 40 mg PO DAILY blood sugar diagnostic (Accu-Chek Guide test strips) As directed 2 times per day blood-glucose meter TEST 2 TIMES DAILY blood-glucose meter (Accu-Chek Guide Glucose Meter) As directed cyanocobalamin (vitamin B-12) 1,000 mcg PO DAILY diltiazem HCl CD (Cardizem CD) 120 mg See Protocol PO DAILY esomeprazole magnesium (Nexium) 20 mg PO DAILY furosemide 20 mg PO DAILY glipizide 5 mg PO DAILY lancing device ACCU-CHECK DARLINE DEVICE lancing device (Adjustable Lancing Device) As directed lisinopril 20 mg PO DAILY multivitamin 1 tab PO DAILY phenytoin sodium extended 200 mg PO BID tizanidine 4 mg PO Q8H PRN triamcinolone acetonide 0.5% 1 appl topical TID warfarin 5 mg See Protocol PO DAILY Tobacco use date assessed: 06/16/23 Fall risk assessment: No Falls in past year Last assessed Fall Risk: 04/04/24 Dental Screening Dental Screen Date: 06/16/23 HPI Medication refill HPI Details last Sz 30+ years ago but remains on Dilantin; has been referred to neuro to assess need to continue rx PFSH Medical History Factor V Leiden DVT (deep venous thrombosis) Hyperlipidemia Hypertension Diabetes mellitus with coincident hypertension Surgical History History of lumpectomy of right breast History of appendectomy History of cholecystectomy Family History Father Asthma Mother Diabetes Hypertension Colon cancer Other Substance use disorder Social History Household Members: None Housing: Apartment Do you presently have visiting nurse or other home services: No Alcohol intake: never Patient Tobacco Use Status: Never used Tobacco Tobacco use type: Cigarette e-Cigarette/Vaping Use: Never Used Second Hand Smoke Exposure: No Advance Directives Date on File: 02/03/23 service: No Current occupational status: employed Cognitive needs: No Hearing needs: No Vision needs: No Questionnaire PHQ-9 Over the last 2 weeks, how often have you been bothered by any of the following problems? 1. Little interest or pleasure in doing things: not at all 2. Feeling down, depressed, or hopeless: not at all 3. Trouble falling or staying asleep, or sleeping too much: not at all 4. Feeling tired or having little energy: not at all 5. Poor appetite or overeating: not at all 6. Feeling bad about yourself - or that you are a failure or have let yourself or your family down: not at all 7. Trouble concentrating on things, such as reading the newspaper or watching television: not at all 8. Moving or speaking so slowly that other people could have noticed. Or the opposite - being so fidgety or restless that you have been moving around a lot more than usual: not at all 9. Thoughts that you would be better off or of hurting yourself in some way: not at all Total score: 0 Depression Screening Interpretation: Negative Depression Screening Done: Yes Source: Developed by Drs. Tee Esqueda, Cami Betts, Zac Arellano and colleagues, with an educational naz from [employer] Thrive Questionnaire Date Thrive assessed: 06/16/23 AUDIT C Alcohol Use Questionnaire (AUDIT-C) 1. How often do you have a drink containing alcohol?: Never Total Score: 0 Score Reviewed/Action Taken: Yes JOEL-7 AMB Questionnaire JOEL-7 Date JOEL - 7 assessed: 06/16/23 Source: Developed by Drs. Tee Esqueda, Zac Gudino and colleagues, with an educational naz from [employer] Review of Systems Const Denies chills, Denies headache(s) and Denies weight loss ENT Denies headache(s) Card Denies chest pain, Denies syncope, Denies irregular heart rhythm and Denies dyspnea Resp Denies chest congestion, Denies cough and Denies dyspnea GI Denies abdominal pain, Denies change in stool character, Denies nausea and Denies vomiting Musc Denies deformity and Denies joint swelling Neuro Denies syncope and Denies headache(s) Physical exam (Primary Care) Vital Signs: Last Vital Signs Pulse 76 04/04/24 08:43 BP 138/72 04/04/24 08:43 Pulse Ox 97 04/04/24 08:43 Oxygen Delivery Method Room Air 04/04/24 08:43 BMI result Body Mass Index 40.6 Tobacco/Smoking Status: Tobacco use Status Tobacco use date assessed 06/16/23 04/04/24 08:52 Patient Tobacco Use Status Never used Tobacco 04/04/24 08:52 Tobacco use type Cigarette 04/04/24 08:52 e-Cigarette/Vaping Use Never Used 04/04/24 08:52 PHQ-9: PHQ-9 Score PHQ-9: Total score 0 04/04/24 08:53 Depression Screening Interpretation: Negative Thrive Assessment: Date of Thrive Assessment Date Thrive assessed 06/16/23 04/04/24 08:52 Const General: cooperative, comfortable, no acute distress and alert Neck Neck: Yes no lymphadenopathy Thyroid: Thyroid normal Resp Effort & Inspection: normal respiratory effort Auscultation: clear to auscultation bilaterally Percussion: percussion normal Cardio Jugular venous distension: no JVD Palpation: normal PMI Rate: regular rate Rhythm: regular rhythm Heart sounds: S1 normal heart sound present and S2 normal heart sound present GI Inspection: Yes normal to inspection Palpation (GI): No hepatosplenomegaly present Skin General skin exam: no rashes or lesions noted Extrem General: Yes no clubbing, cyanosis or edema Coding Level of Care Code Est Pt Level 3 (67785) Diagnoses Seizure R56.9 Assessment & Plan Assessment & Plan (1) Seizure: Code(s): R56.9 - Unspecified convulsions Category: Medical Plan: cont rx for now; see neuro re need to continue Medications: New phenytoin sodium extended (Dilantin Extended) 200 mg (2 x 100 mg) PO BID 60 caps 3RF Refilled ciprofloxacin HCl (Cipro) 250 mg PO BID 10 tabs 0RF
== END 2024-04-04 09:06 | disposition home or self-care (01) ==
PROVIDERS: PCP Internal Medicine; Visit Provider Internal Medicine
DX: R56.9 Unspecified convulsions (principal)

== ENCOUNTER → 2024-04-04 08:39 | Outpatient (BNVA) | payer MEDICARE, MEDICAID, SELFPAY | PROVIDERS: PCP Internal Medicine; Visit Provider Internal Medicine | DX: R56.9 Unspecified convulsions (principal) | CPT/HCPCS: 96127; 99212 ==

== ENCOUNTER 2024-04-06 07:55 | Outpatient (RCR) | payer MEDICARE, OTHER, SELFPAY | END 2024-05-19 15:25 | disposition home or self-care (01) | LOC: HO.WCC 07:55 | PROVIDERS: PCP Internal Medicine; Visit Provider Surgery | DX: I87.312 Chronic venous hypertension (idiopathic) with ulcer of left lower extremity (principal); L97.822 Non-pressure chronic ulcer of other part of left lower leg with fat layer exposed; E66.9 Obesity, unspecified; Z86.718 Personal history of other venous thrombosis and embolism | CPT/HCPCS: 11042; 99212 ==

== ENCOUNTER 2024-04-06 08:39 | Outpatient (AMB) | payer MEDICARE, MEDICAID, SELFPAY ==
[2024-04-06 09:09] LABS: Prothrombin Time Whole Bld POC 20.1 sec (11.1-13.5); ~PT, ~INR - Anti Coag Clinic 1.7 (0.9-1.1)
--- NOTE | 2024-04-06 09:17 | MHC.OFFVISCO ---
Intake Intake Visit Reasons: Anticoagulation Allergies shrimp [SHRIMP] Allergy (Mild, Verified 04/06/24 09:02) HIVES No Known Drug Allergies Allergy (Unknown, Verified 04/06/24 09:02) Unknown Medication List - Last Reconciled 04/06/24 by Celeste Chong RN ammonium lactate 12% 1 appl topical BID apple cider vinegar PO BID atorvastatin 40 mg PO DAILY blood sugar diagnostic (Accu-Chek Guide test strips) As directed 2 times per day blood-glucose meter TEST 2 TIMES DAILY blood-glucose meter (Accu-Chek Guide Glucose Meter) As directed ciprofloxacin HCl (Cipro) 250 mg PO BID cyanocobalamin (vitamin B-12) 1,000 mcg PO DAILY diltiazem HCl CD (Cardizem CD) 120 mg See Protocol PO DAILY esomeprazole magnesium (Nexium) 20 mg PO DAILY furosemide 20 mg PO DAILY glipizide 5 mg PO DAILY lancing device ACCU-CHECK DARLINE DEVICE lancing device (Adjustable Lancing Device) As directed lisinopril 20 mg PO DAILY multivitamin 1 tab PO DAILY phenytoin sodium extended (Dilantin Extended) 200 mg (2 x 100 mg) PO BID phenytoin sodium extended 200 mg PO BID tizanidine 4 mg PO Q8H PRN triamcinolone acetonide 0.5% 1 appl topical TID warfarin 5 mg See Protocol PO DAILY Nursing Note PT.IS ON DAY 3 OF 7 DAYS OF CIPRO(UTI). PT.STATES THAT SHE MISSED WARFARIN DOSE YESTERDAY. BOOST TO 5MGM TODAY THEN RESUME USUAL DOSE AND FOLLOW-UP IN 1 WEEK. INCREASE FLUID INTAKE A BIT. GOOD UNDERTSTANDING OF DOSING INSTR. Anti-Coag Initial Assessment Social Hx Patient Tobacco Use Status: Never used Tobacco Tobacco use type: Cigarette alcohol intake: never Alcohol intake frequency: a few times a month Coding Level of Care Code Est Patient Level 1 Diagnoses Current use of anticoagulant therapy Z79.01 Assessment & Plan Assessment & Plan (1) Current use of anticoagulant therapy: Code(s): Z79.01 - senior living (current) use of 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
== END 2024-04-06 09:22 | disposition home or self-care (01) ==
LOC: HO.ACS 08:39
PROVIDERS: PCP Internal Medicine; Visit Provider Internal Medicine
DX: Z79.01 Long term (current) use of anticoagulants (principal)

== ENCOUNTER → 2024-04-06 08:39 | Outpatient (BNVA) | payer MEDICARE, MEDICAID, SELFPAY | PROVIDERS: PCP Internal Medicine; Visit Provider Internal Medicine | DX: Z86.718 Personal history of other venous thrombosis and embolism (principal); Z79.01 Long term (current) use of anticoagulants; Z51.81 Encounter for therapeutic drug level monitoring | CPT/HCPCS: 85610; 99211 ==

== ENCOUNTER 2024-04-13 13:03 | Outpatient (AMB) | payer MEDICARE, MEDICAID, SELFPAY ==
[2024-04-13 13:10] LABS: Prothrombin Time Whole Bld POC 21.2 sec (11.1-13.5); ~PT, ~INR - Anti Coag Clinic 1.8 (0.9-1.1)
--- NOTE | 2024-04-13 13:37 | MHC.OFFVISCO ---
Intake Intake Visit Reasons: Anticoagulation Allergies shrimp [SHRIMP] Allergy (Mild, Verified 04/13/24 13:04) HIVES No Known Drug Allergies Allergy (Unknown, Verified 04/13/24 13:04) Unknown Medication List - Last Reconciled 04/13/24 by Celeste Chong RN ammonium lactate 12% 1 appl topical BID apple cider vinegar PO BID atorvastatin 40 mg PO DAILY blood sugar diagnostic (Accu-Chek Guide test strips) As directed 2 times per day blood-glucose meter TEST 2 TIMES DAILY blood-glucose meter (Accu-Chek Guide Glucose Meter) As directed ciprofloxacin HCl (Cipro) 250 mg PO BID cyanocobalamin (vitamin B-12) 1,000 mcg PO DAILY diltiazem HCl CD (Cardizem CD) 120 mg See Protocol PO DAILY esomeprazole magnesium (Nexium) 20 mg PO DAILY furosemide 20 mg PO DAILY glipizide 5 mg PO DAILY lancing device ACCU-CHECK DARLINE DEVICE lancing device (Adjustable Lancing Device) As directed lisinopril 20 mg PO DAILY multivitamin 1 tab PO DAILY phenytoin sodium extended (Dilantin Extended) 200 mg (2 x 100 mg) PO BID phenytoin sodium extended 200 mg PO BID tizanidine 4 mg PO Q8H PRN triamcinolone acetonide 0.5% 1 appl topical TID warfarin 5 mg See Protocol PO DAILY Nursing Note NO CP,SOB, DIET/MED CHANGES,FALLS OR SX OF BLEEDING. INCREASE WEEKLY DOSE AND FOLLOW-UP IN 0 DAYS NO GREENSD 1-2 DAYS GOOD UNDERSTANDING OF DOSING INSTR. Anti-Coag Initial Assessment Social Hx Patient Tobacco Use Status: Never used Tobacco Tobacco use type: Cigarette alcohol intake: never Alcohol intake frequency: a few times a month Coding Level of Care Code Est Patient Level 1 Diagnoses Current use of anticoagulant therapy Z79.01 Assessment & Plan Assessment & Plan (1) Current use of anticoagulant therapy: Code(s): Z79.01 - longterm (current) use of 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
== END 2024-04-13 13:39 | disposition home or self-care (01) ==
LOC: HO.ACS 13:03
PROVIDERS: PCP Internal Medicine; Visit Provider Internal Medicine
DX: Z79.01 Long term (current) use of anticoagulants (principal)

== ENCOUNTER → 2024-04-13 13:03 | Outpatient (BNVA) | payer MEDICARE, MEDICAID, SELFPAY | PROVIDERS: PCP Internal Medicine; Visit Provider Internal Medicine | DX: Z86.718 Personal history of other venous thrombosis and embolism (principal); Z79.01 Long term (current) use of anticoagulants; Z51.81 Encounter for therapeutic drug level monitoring | CPT/HCPCS: 85610; 99211 ==

== ENCOUNTER 2024-04-26 13:00 | Outpatient (AMB) | payer MEDICARE, MEDICAID, SELFPAY ==
[2024-04-26 13:22] LABS: Prothrombin Time Whole Bld POC 25.3 sec (11.1-13.5); ~PT, ~INR - Anti Coag Clinic 2.1 (0.9-1.1)
--- NOTE | 2024-04-26 13:38 | MHC.OFFVISCO ---
Intake Intake Visit Reasons: Anticoagulation Allergies shrimp [SHRIMP] Allergy (Mild, Verified 04/26/24 13:15) HIVES No Known Drug Allergies Allergy (Unknown, Verified 04/26/24 13:15) Unknown Medication List - Last Reconciled 04/26/24 by Clover Granados RN ammonium lactate 12% 1 appl topical BID apple cider vinegar PO BID atorvastatin 40 mg PO DAILY blood sugar diagnostic (Accu-Chek Guide test strips) As directed 2 times per day blood-glucose meter TEST 2 TIMES DAILY blood-glucose meter (Accu-Chek Guide Glucose Meter) As directed ciprofloxacin HCl (Cipro) 250 mg PO BID cyanocobalamin (vitamin B-12) 1,000 mcg PO DAILY diltiazem HCl CD (Cardizem CD) 120 mg See Protocol PO DAILY esomeprazole magnesium (Nexium) 20 mg PO DAILY furosemide 20 mg PO DAILY glipizide 5 mg PO DAILY lancing device ACCU-CHECK DARLINE DEVICE lancing device (Adjustable Lancing Device) As directed lisinopril 20 mg PO DAILY multivitamin 1 tab PO DAILY phenytoin sodium extended (Dilantin Extended) 200 mg (2 x 100 mg) PO BID phenytoin sodium extended 200 mg PO BID tizanidine 4 mg PO Q8H PRN triamcinolone acetonide 0.5% 1 appl topical TID warfarin 5 mg See Protocol PO DAILY Nursing Note INR: 2.1 in therapeutic range of 2-3 Medications and supplements reviewed No changes in health, diet, medications, or supplements, Denies any signs and symptoms of bleeding or bruising or clotting. Bleeding, bruising, clotting discussed Nutritional guidance given to avoid greens today Dose: 5mg X 5 days and 2.5mg X 2 days F/U INR: 2 weeks Patient verbalizes understanding of instructions given Anti-Coag Initial Assessment Social Hx Patient Tobacco Use Status: Never used Tobacco Tobacco use type: Cigarette alcohol intake: never Alcohol intake frequency: a few times a month Coding Level of Care Code Est Patient Level 1 Diagnoses Current use of anticoagulant therapy Z79.01 Results AMB INR Fingerstick AMB INR Fingerstick 2.1 Last Edit by Clover Granados RN on 04/26/24 13:35 interface delay Assessment & Plan Assessment & Plan (1) Current use of anticoagulant therapy: Code(s): Z79.01 - watermaster (current) use of 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
== END 2024-04-26 13:40 | disposition home or self-care (01) ==
LOC: HO.ACS 13:00
PROVIDERS: PCP Internal Medicine; Visit Provider Internal Medicine
DX: Z79.01 Long term (current) use of anticoagulants (principal)

== ENCOUNTER → 2024-04-26 13:00 | Outpatient (BNVA) | payer MEDICARE, MEDICAID, SELFPAY | PROVIDERS: PCP Internal Medicine; Visit Provider Internal Medicine | DX: Z86.718 Personal history of other venous thrombosis and embolism (principal); Z79.01 Long term (current) use of anticoagulants; Z51.81 Encounter for therapeutic drug level monitoring | CPT/HCPCS: 85610; 99211 ==

== ENCOUNTER 2024-05-13 13:36 | Outpatient (AMB) | payer MEDICARE, OTHER, SELFPAY ==
[2024-05-13 14:02] LABS: Prothrombin Time Whole Bld POC 34.4 sec (11.1-13.5); ~PT, ~INR - Anti Coag Clinic 2.9 (0.9-1.1)
--- NOTE | 2024-05-13 14:15 | MHC.OFFVISCO ---
Intake Intake Visit Reasons: Anticoagulation Allergies shrimp [SHRIMP] Allergy (Mild, Verified 05/13/24 13:57) HIVES No Known Drug Allergies Allergy (Unknown, Verified 05/13/24 13:57) Unknown Medication List - Last Reconciled 05/13/24 by Clover Granados RN ammonium lactate 12% 1 appl topical BID apple cider vinegar PO BID atorvastatin 40 mg PO DAILY blood sugar diagnostic (Accu-Chek Guide test strips) As directed 2 times per day blood-glucose meter TEST 2 TIMES DAILY blood-glucose meter (Accu-Chek Guide Glucose Meter) As directed ciprofloxacin HCl (Cipro) 250 mg PO BID cyanocobalamin (vitamin B-12) 1,000 mcg PO DAILY diltiazem HCl CD (Cardizem CD) 120 mg See Protocol PO DAILY esomeprazole magnesium (Nexium) 20 mg PO DAILY furosemide 20 mg PO DAILY glipizide 5 mg PO DAILY lancing device ACCU-CHECK DARLINE DEVICE lancing device (Adjustable Lancing Device) As directed lisinopril 20 mg PO DAILY multivitamin 1 tab PO DAILY phenytoin sodium extended (Dilantin Extended) 200 mg (2 x 100 mg) PO BID phenytoin sodium extended 200 mg PO BID tizanidine 4 mg PO Q8H PRN triamcinolone acetonide 0.5% 1 appl topical TID warfarin 5 mg See Protocol PO DAILY Nursing Note INR: 2.9 in therapeutic range of 2-3 Medications and supplements reviewed No changes in health, diet, medications, or supplements, Denies any signs and symptoms of bleeding or bruising or clotting. Bleeding, bruising, clotting discussed Nutritional guidance given to avoid greens today and to have a serving of food from the list that raises the INR. Food list reviewed. Dose: 5mg X 5 days and 2.5mg X 2 days F/U INR: 2 weeks Patient verbalizes understanding of instructions given Anti-Coag Initial Assessment Social Hx Patient Tobacco Use Status: Never used Tobacco Tobacco use type: Cigarette alcohol intake: never Alcohol intake frequency: a few times a month Coding Level of Care Code Est Patient Level 1 Diagnoses Current use of anticoagulant therapy Z79.01 Results AMB INR Fingerstick AMB INR Fingerstick 2.9 Last Edit by Clover Granados RN on 05/13/24 14:02 interface delay Assessment & Plan Assessment & Plan (1) Current use of anticoagulant therapy: Code(s): Z79.01 - assisted (current) use of 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
== END 2024-05-13 14:17 | disposition home or self-care (01) ==
LOC: HO.ACS 13:36
PROVIDERS: PCP Internal Medicine; Visit Provider Internal Medicine
DX: Z79.01 Long term (current) use of anticoagulants (principal)

== ENCOUNTER → 2024-05-13 13:36 | Outpatient (BNVA) | payer MEDICARE, OTHER, SELFPAY | PROVIDERS: PCP Internal Medicine; Visit Provider Internal Medicine | DX: Z86.718 Personal history of other venous thrombosis and embolism (principal); Z79.01 Long term (current) use of anticoagulants; Z51.81 Encounter for therapeutic drug level monitoring | CPT/HCPCS: 85610; 99211 ==

== ENCOUNTER 2024-05-27 13:12 | Outpatient (AMB) | payer MEDICARE, OTHER, SELFPAY ==
[2024-05-27 13:30] LABS: Prothrombin Time Whole Bld POC 57.5 sec (11.1-13.5); ~PT, ~INR - Anti Coag Clinic 4.8 (0.9-1.1)
--- OUTSIDE RECORDS SUMMARY | 2024-05-27 13:30 | XMS_ITS ---
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 with home health services [facility] [place] 01/30/2023 01:59 pm EDT - 02/07/2023 11:00 am EDT Immunizations Vaccine Date Influenza 02/15/2022 12:00 am EDT Pneumococcal Conjugate Vaccine (PCV13) 1 05/10/2014 12:00 am EST SARS-COV-2 (COVID-19) 09/01/2020 12:00 a m EDT SARS-COV-2 (COVID-19) 08/02/2020 12:00 a m EDT Prevnar 20 Pneumococcal conjugate (PCV20 ) 02/05/2023 12:13 pm EDT SARS-COV-2 (COVID-19 BOOSTER) SARS-COV-2 (COVID-19 BOOSTER) 03/13/2021 12:00 am EST Social History
--- OUTSIDE RECORDS SUMMARY | 2024-05-27 13:30 | XMS_ITS | Clinical Summary ---
Author Organization [facility] [address] it Address [address] [place] [address] Care Team Providers Care Managing Attorney Name Role Phone Unavailable Primary Care Provider Unavailabl e Encounters Date Type Department Care Team Description 05/27/2024 [facility] [address] [place] [phone] Syd Gastelum MD Epilepsy, unspecified, not intractable, without status epilepticus (CMS/HCC) from Last 3 Months Social History Tobacco Use Types Packs/Day Years Used Date Smoking Tobacco: Never Assessed Sex and Gender Information Value Date Recorded Sex Assigned at Not on file Gender Identity Not on file Sexual Orientation Not on file Job Start Date Occupation Industry Not on file Not on file Not on file Plan of Treatment Upcoming Encounters Date Type Department Care Team (Late st Contact Info) Description 05/30/2024 [facility] Neurodiagnostic [address] [place] [phone] Syd Gastelum MD [address] [place] [address] [place] [address] Epilepsy, unspecified, not intractable, without status epilepticus (CMS/HCC) 08/22/2024 8:00 AM EDT Appointment [facility] [address] [place] [phone] 08/23/2024 9:00 AM EDT Appointment [facility] [address] [place] [phone] 08/24/2024 9:00 AM EDT Appointment [facility] [address] [place] [phone] Health Maintenance Due Date Last Done Comments DTaP,Tdap,and Td Vaccines (1 - Tdap) 1965 Zoster Vaccines (1 of 2) 1996 Pneumococcal Vaccine: 65+ Ye ars (1 of 1 - PCV) 11/03/2011 RSV Immunization Patients 60 + Years Old (1 - 1-dose 75+ series) 2021 COVID-19 Vaccine (1 - 2023-2 5 season) 2023 Influenza Vaccine (#1) 2023 Depression Screening 05/26/2024 Falls Risk Assessment 05/26/2024 Hepatitis C Screening 05/26/2024 Medicare Annual Wellness Visit 05/26/2024 Osteoporosis Screening (Bone Density Screening) 05/26/2024 Social Influencers of Health Screening 05/26/2024 HIB Vaccines Aged Out No longer eligi ble based on patient's age to complete this topic HPV Vaccines Aged Out No longer eligi ble based on patient's age to complete this topic Hepatitis A Vaccines Aged Out No long er eligible based on patient's age to complete this topic Hepatitis B Vaccines Aged Out No long er eligible based on patient's age to complete this topic IPV Vaccines Aged Out No longer eligi ble based on patient's age to complete this topic MMR Vaccines Aged Out No longer eligi ble based on patient's age to complete this topic Meningococcal ACWY Vaccine Aged Out N o longer eligible based on patient's age to complete this topic RSV Immunization Patients Un fili 20 months Aged Out No longer eligible b ased on patient's age to complete this topic Varicella Vaccines Aged Out No longer eligible based on patient's age to complete this topic
--- OUTSIDE RECORDS SUMMARY | 2024-05-27 13:30 | XMS_ITS | Data Portability ---
Author Organization [place] - [facility], , [facility] Address [address] [place] [address] Assessment No assessment recorded. Plan of Treatment Reminders Order Date Submit Date Provider Last Modified By Organization Details Last Modified Time Details Appointments None record ed. Lab None record ed. Referral None record ed. Procedures None record ed. Surgeries None record ed. Imaging None record ed. Medication Orders None record ed. Patient TargetsNo targets recorded. Patient InstructionsNo instructions recorded. Reason for Referral None Reported. Results Created Date Observation Date Name Description Value Unit Range Abnormal Flag Note LastModifiedBy Organization Detail LastModifiedTime 11/29/1911/28/2005 ALT (SGPT ) ALT 42 U/L 30-65 Not Available [address], [address], 06/26/2008 02:36:06 11/29/1911/28/2005 hemog lobin A1C w/ mpg hemoglobin A1C 5.6 % 4.8-6. 0 goal: <7% in patie nts with diabe ernestine Not Available [address], [address], 06/26/2008 02:36:06 11/29/1911/28/2005 lipid panel cholesterol 245 mg/dL <200 mg/dL naz eable 200-2 39 mg/dL borde rline high >240 mg/dL high Not Available [address], [address], 06/26/2008 02:36:06 11/29/1911/28/2005 lipid panel triglyceride s 216 mg/dL <150 mg/dL helene l 150-1 99 mg/dL borde rline high 200-4 99 mg/dL high >500 mg/dL very high Not Available [address], [address], 06/26/2008 02:36:06 11/29/1911/28/2005 lipid panel direct HDL 62 mg/dL <40 mg/dL - major risk for CHD >60 mg/dL - negat danyell risk for CHD Not Available [address], [address], 06/26/2008 02:36:06 11/29/1911/28/2005 lipid panel direct LDL 141 mg/dL risk categ ory LDL goal _ CHD or CHD risk equiv alent s <100 mg/dL (10-y ear risk >20%) 2+ risk facto rs <130 mg/dL (10-y ear risk <= 20%) 0-1 risk facto r? <160 mg/dL ? almos t all peopl e with 0-1 risk facto r have A 10 year risk <10%, thus 10 year risk asses ment in peopl e with 0-1 risk facto r IS not necvinod faby. Not Available [address], [address], 06/26/2008 02:36:06 12/02/19 06 12/01/2005 mendez jha n time PT 41.1 secon ds 9.0-10 .4 high Not Available [address], [address], 06/26/2008 03:22:12 12/02/19 06 12/01/2005 proth radhabi n time INR 4.1 0.9-1. 1 high sugge sted value of 2.0-3 .0 for proph ylaxi s of venou s thomb osis, and preve ntion of embol ism. sugge sted value of 2.5-3 .5 for preve ntion of recur rent embol ism or patie nts with mecha nical prost hetic heart valve s. Not Available [address], [address], 06/26/2008 03:22:12 12/16/19 06 12/15/2005 proth rombi n time PT 23.6 secon ds 9.0-10 .4 high Not Available [address], [address], 06/26/2008 03:41:29 12/16/19 06 12/15/2005 proth rombi n time INR 2.4 0.9-1. 1 high sugge sted value of 2.0-3 .0 for proph ylaxi s of venou s thomb osis, and preve ntion of embol ism. sugge sted value of 2.5-3 .5 for preve ntion of recur rent embol ism or patie nts with mecha nical prost hetic heart valve s. Not Available [address], [address], 06/26/2008 03:41:29 12/20/19 06 12/19/2005 proth rombi n time PT 23.3 secon ds 9.0-10 .4 high Not Available [address], [address], 06/26/2008 03:27:20 12/20/19 06 12/19/2005 proth rombi n time INR 2.4 0.9-1. 1 high sugge sted value of 2.0-3 .0 for proph ylaxi s of venou s thomb osis, and preve ntion of embol ism. sugge sted value of 2.5-3 .5 for preve ntion of recur rent embol ism or patie nts with mecha nical prost hetic heart valve s. Not Available [address], [address], 06/26/2008 03:27:20 Result Notes None recorded. 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 Not Available [facility] 3 03:12:20 Thromboemb olic disorder 941039401 Active 2005 Not Available [facility] 3 03:12:20 Benign essential hypertensi on 0504363 Active 2003 Not Available [facility] 3 03:12:20 Atrial fibrillati on 99594887 Active 2004 Not Available [facility] 3 03:12:20 Phlebitis of the femoral vein 986883424 Active 2003 Not Available [facility] 3 03:12:20 Major depression , melancholi c type 584003149 Active 2005 Not Available [facility] 3 03:12:20 Common cold 15632695 Completed 200403/16/2013 Not Available [facility] 3 02:00:29 Hand joint pain 841966181 Completed 200403/16/2013 Not Available [facility] 3 02:02:43 Edema of extremity 643650858 Completed 200303/16/2013 Not Available [facility] 3 02:02:55 On examinatio n - a rash Completed 200403/16/2013 Not Available [facility] 3 02:00:49 Seizure 89138927 Active 2004 Not Available [facility] 3 03:12:20 Type 2 diabetes mellitus without complicati on 287415144 Active 2003 Not Available [facility] 3 03:12:20 Acute maxillary sinusitis 78175887 Completed 200403/16/2013 Not Available [facility] 3 02:01:43 Abnormal weight gain 562353891 Active 2003 Not Available [facility] 3 03:12:20 Generalize d abdominal pain 860498672 Completed 200303/16/2013 Not Available [facility] 3 02:02:06 Hyperlipid emia 00982225 Active 2004 Not Available [facility] 3 03:12:20 Dysuria 02215595 Completed 200303/16/2013 Not Available [facility] 3 02:02:00 Peripheral venous insufficie ncy 06951316 Active 2003 Not Available [facility] 3 03:12:20 Hypothyroi dism 72406114 Active 2004 Not Available [facility] 3 03:12:20 Streptococ samm sore throat 83120649 Completed 200303/16/2013 Not Available [facility] 3 02:02:03 Acute bronchitis 00169356 Completed 200403/16/2013 Not Available [facility] 3 02:01:37 Problem Notes None recorded. Medical Equipment None Reported. Vitals None Recorded Social History None recorded. Functional Status None recorded. Mental Status None recorded. Family History Nothing Reported. Medical History No medical history recorded. Gynecological HistoryNo gynecological history recorded. Obstetrics History GPAL:G 0 P 0 0 0 0 Immunizations Vaccine Type Date Status Note Provider Nam e and Address Organization Details Recorded Time influenza, unspecified formulation 4 completed Not Available [facility] 03/12/2011 05:21:07 influenza, unspecified formulation 4 completed Not Available [facility] 03/12/2011 05:21:07 influenza, unspecified formulation 5 completed Not Available [facility] 03/12/2011 05:21:29 influenza, unspecified formulation 5 completed Not Available [facility] 03/12/2011 05:21:29 Past Encounters Encounter ID Performer Location Encounter Start Date Encounter Closed Date Diagnosis/Indication Diagnosis SNOMED-CT Code Diagnosis ICD10 Code Diagnosis Note [id number] , [facility], OFFICE [address] [place] [address] 11/16/2003 12:14:30 11/22/2003 09:27:14 [id number] [facility], [place] [address] 12/22/2003 09:56:38 12/25/2003 15:40:32 [id number] [facility], OFFICE [address] [place] [address] 01/19/2004 09:54:48 01/22/2004 08:56:58 [id number] [facility], OFFICE [address] [place] [address] 02/02/2004 09:07:12 02/02/2004 12:21:32 [id number] [facility] [address] [place] [address] 02/02/2004 07:26:36 02/02/2004 09:21:04 [id number] [facility], [address] [place] [id number] 03/07/2004 08:50:31 03/07/2004 17:12:49 [id number] [facility] [address] 04/05/2004 09:48:00 04/09/2004 08:47:39 [id number] FP [facility], [address] [place] [id number] 04/15/2004 15:03:12 04/15/2004 17:36:23 [id number] [facility], [place] [address] [place] [id number] 04/12/2004 10:53:34 05/17/2008 02:02:29 [id number] FP [facility], [place] [address] [place] [address] 1 04/22/2004 14:57:11 04/23/2004 09:26:19 [id number] FP [facility], OFF[address] [place] [id number] 1 05/03/2004 10:24:03 05/06/2004 08:51:52 [id number] [facility], OFF[address] [place] [address] 1 05/20/2004 10:47:03 05/21/2004 08:35:20 [id number] FP [facility], OFF[address] [place] [id number] 1 05/24/2004 11:19:37 05/27/2004 09:14:32 [id number] [facility], OFFICE [address] [place] [address] 05/27/2004 09:35:41 05/28/2004 09:13:28 [id number] [facility], OFFICE [address] [place] [address] 06/04/2004 08:58:14 06/04/2004 17:23:42 [id number] [facility], OFFICE [address] [place] [address] 06/18/2004 10:00:16 06/18/2004 16:52:29 [id number] [facility] [address] [place] [address] 06/18/2004 07:34:32 06/18/2004 09:59:04 [id number] [facility], OFFICE [address] [place] [address] 06/27/2004 11:46:29 06/28/2004 09:09:13 [id number] [facility], [place] [address] 08/14/2004 11:47:27 08/15/2004 08:54:14 [id number] [facility], [place] [address] 09/19/2004 16:03:15 09/20/2004 16:06:43 [id number] [facility], [place] [address] 10/17/2004 08:40:42 10/17/2004 15:32:26 [id number] [facility] [address] [place] [address] 10/17/2004 07:29:38 10/17/2004 09:02:48 [id number] [facility] [place] [address] 10/25/2004 10:49:52 11/01/2004 08:36:26 [id number] [facility], [place] [address] 11/19/2004 09:04:39 11/20/2004 08:14:19 [id number] [facility], OFFICE [address] [place] [address] [place] [address] 11/26/2004 08:55:17 11/26/2004 16:24:15 [id number] [facility], OFFICE [address] [place] [address] 12/03/2004 09:11:25 12/04/2004 14:38:40 [id number] [facility] , [facility] [address] [place] [address] 12/05/2004 10:50:31 12/05/2004 11:29:40 [id number] [facility], OFFICE [address] [place] [address] 12/20/2004 08:19:23 12/20/2004 15:41:51 [id number] [facility] [address] [place] [id number] 1 12/20/2004 07:34:27 12/20/2004 08:05:52 [id number] [facility], OFFICE [address] [place] [address] 12/27/2004 09:49:39 12/27/2004 15:08:31 [id number] [facility], OFFICE [address] [place] [address] 12/31/2004 11:01:20 01/02/2005 10:36:32 [id number] [facility], OFFICE [address] [place] [address] 01/08/2005 10:14:21 01/08/2005 15:13:20 [id number] [facility], OFFICE [address] [place] [address] 01/16/2005 10:11:30 01/16/2005 15:05:45 [id number] [facility], OFFICE [address] [place] [address] 01/30/2005 10:31:42 01/30/2005 14:44:48 [id number] [facility], OFFICE [address] [place] [address] 02/18/2005 15:03:31 02/18/2005 17:29:51 [id number] [facility], OFFICE [address] [place] [address] 03/05/2005 14:53:36 03/05/2005 17:29:44 [id number] [facility], OFFICE [address] [place] [address] 03/06/2005 11:53:52 03/06/2005 15:47:59 [id number] [facility] [address] [place] [address] 03/05/2005 15:26:52 03/05/2005 15:27:17 [id number] [facility], OFFICE [address] [place] [address] 03/18/2005 16:33:44 03/19/2005 08:28:27 [id number] [facility], OFFICE [address] [place] [address] 03/26/2005 14:01:26 03/26/2005 16:56:44 [id number] [facility], OFFICE [address] [place] [address] 04/25/2005 15:06:42 04/29/2005 10:24:01 [id number] [facility], OFFICE [address] [place] [address] 1 04/02/2005 13:33:35 04/02/2005 14:27:[id number] [place] [address] 05/15/2005 13:10:28 05/15/2005 13:11:25 [id number] [facility] [address] [place] [address] 06/02/2005 08:59:09 06/02/2005 09:00:10 [id number] [facility], OFFICE [address] [place] [id number] 1 06/09/2005 09:48:13 06/09/2005 17:49:27 [id number] [facility] [address] [place] [address] 06/30/2005 07:39:14 06/30/2005 10:47:09 [id number] [place] [address] [place] [address] 07/15/2005 07:35:21 07/15/2005 10:38:06 [id number] [facility] [address] [place] [address] 08/05/2005 07:38:24 08/05/2005 10:34:53 [id number] [facility], OFFICE [address] [place] [address] 08/08/2005 11:53:47 08/08/2005 14:52:47 [id number] [facility], OFFICE [address] [place] [address] 1 08/11/2005 10:19:48 08/11/2005 15:05:14 [id number] [facility], OFFICE [address] [place] [address] 08/18/2005 10:57:06 08/18/2005 15:15:34 [id number] [facility], OFFICE [address] [place] [address] 08/25/2005 11:48:03 08/25/2005 17:40:40 [id number] [facility], OFFICE [address] [place] [address] 09/17/2005 11:31:19 09/17/2005 15:17:53 [id number] FP [facility], OFFICE [address] [place] [address] 1 10/09/2005 16:05:18 10/10/2005 16:24:20 [id number] [facility], OFFICE [address] [place] [address] 10/20/2005 09:54:51 10/20/2005 17:30:28 [id number] [facility], OFFICE [address] [place] [address] 11/17/2005 10:54:13 11/17/2005 17:50:24 [id number] [facility] [address] [place] [address] 11/28/2005 07:30:03 11/28/2005 08:43:26 [id number] [facility], OFFICE [address] [place] [address] 12/01/2005 10:50:57 05/17/2008 02:02:29 [id number] LAB - [facility] [address] [place] [address] 12/01/2005 11:06:46 12/01/2005 11:07:08 [id number] FP [facility] OFFICE [address] [place] [address] 12/02/2005 09:40:49 12/02/2005 12:24:54 [id number] FP [facility], OFFICE [address] [place] [address] 12/05/2005 10:52:16 12/08/2005 09:32:36 [id number] FP [facility], OFFICE [address] [place] [address] 12/10/2005 14:20:32 12/10/2005 17:21:31 [id number] [facility], OFFICE [address] [place] [address] 12/12/2005 10:12:02 12/12/2005 13:55:19 [id number] [facility] [address] [place] [address] 12/15/2005 07:56:58 12/15/2005 10:52:40 [id number] [facility] [address] [place] [address] 1 12/19/2005 09:58:38 12/19/2005 09:58:49 Health Concerns Section Related Observation LastModified by Organization Detai ls LastModified Time None Recorded Concern Status LastModified by Organization Details LastModified Time None Recorded Advance Directives Directive None Recorded Payers Encounter Date Sequence Insurance Name Policy Number Policy Arce Covered Member ID Arce Member ID Guarantor Name 12/05/2005 1 MEDICARE B: [employer] MEDICARE Mar Yjane [facility] [id number] 1 12/10/2005 1 MEDICARE B: [employer] MEDICARE Mary Jane [facility] [id number] 1 12/12/2005 1 MEDICARE B: [employer] MEDICARE Mary Jane [facility] [id number] 1 12/15/2005 1 MEDICARE B: [employer] MEDICARE Mary Jane [facility] [id number] 1 12/19/2005 1 MEDICARE B: [employer] MEDICARE Mary Jane [facility] [id number] 1 OBGyn Episode No OBEpisode recorded.
--- OUTSIDE RECORDS SUMMARY | 2024-05-27 13:30 | XMS_ITS | Encounter Summary ---
Author Organization [facility] Address [address] [place] [address] Care Team Providers Care Pharmacist'S Aide Name Role Phone Unavailable Primary Care Provider Unavailabl e Encounter Details Date Type Department Care Team (Late Contact Info) Description 05/27/2024 [facility] Neurodiagnostic [address] [place] [phone] Syd Gastelum MD [address] [place] [address] [place] [address] Epilepsy, unspecified, not intractable, without status epilepticus (CMS/HCC) Social History Tobacco Use Types Packs/Day Years Used Date Smoking Tobacco: Never Assessed Sex and Gender Information Value Date Recorded Sex Assigned at Not on file Gender Identity Not on file Sexual Orientation Not on file Job Start Date Occupation Industry Not on file Not on file Not on file documented as of this encounter Plan of Treatment Upcoming Encounters Date Type Department Care Team (Late Contact Info) Description 05/30/2024 [facility] Neurodiagnostic [address] [place] [phone] Syd Gastelum MD [address] [place] [address] [place] [address] Epilepsy, unspecified, not intractable, without status epilepticus (CMS/HCC) 08/22/2024 8:[address] [facility] Neurodiagnostic [address] [place] [phone] 08/23/2024 9:[address] [facility]diagn[facility] [address] [place] [phone] 08/24/2024 9:[address] [facility] [address] [place] [address] [place] [address] documented as of this encounter Visit Diagnoses Diagnosis Epilepsy, unspecified, not intractable, without status epilepticus (CMS/HCC) Epilepsy, unspecified, not intractable, without status epilepticus (CMS/HCC) documented in this encounter Orders Neurology Count Last Ordered Date First Orde red Date CONTINUOUS EEG 1 05/27/2024 documented in this encounter
--- OUTSIDE RECORDS SUMMARY | 2024-05-27 13:30 | XMS_ITS ---
Author Organization [facility] [place] Address Unknown Allergies, Adverse Reactions, Alerts Substance Reaction Status Noted Date Resolved Date Shrimp Cutaneous reactions active 01/16/2020 Problems Problem Status Start Date End Date MULTIPLE FRACTURES OF RIBS, LEFT SIDE, SUBSEQUENT ENCOUNTER FOR FRACTURE WITH ROUTINE HEALING (Primary) (S22.42XD - ICD-10-CM) ACTIVE 04/30/2023 UNSPECIFIED FALL, SUBSEQUENT ENCOUNTER (W19.XXXD - ICD-10-CM) ACTIVE 04/30/2023 CONTUSION OF LEFT KNEE, SUBS EQUENT ENCOUNTER (S80.02XD - ICD-10-CM) RESOLVED 01/16/2020 01/26/2020 TYPE 2 DIABETES MELLITUS WIT HOUT COMPLICATIONS (E11.9 - ICD-10-CM) ACTIVE 01/16/2020 ESSENTIAL (PRIMARY) HYPERTENSION (I10 - ICD-10-CM) ACT TORREY 01/16/2020 PAIN IN LEFT KNEE (M25.562 - ICD-10-CM) RESOLVED 0 01/16/2020 01/26/2020 HYPERLIPIDEMIA, UNSPECIFIED (E78.5 - ICD-10-CM) ACTIVE 01/16/2020 PERSONAL HISTORY OF OTHER VE NOUS THROMBOSIS AND EMBOLISM (Z86.718 - ICD-10-CM) ACTIVE 01/16/2020 MORBID (SEVERE) OBESITY DUE TO EXCESS CALORIES (E66.01 - ICD-10-CM) ACTIVE 04/30/2023 ACTIVATED PROTEIN C RESISTANCE (D68.51 - ICD-10-CM) AC TIVE 04/30/2023 WEAKNESS (R53.1 - ICD-10-CM) RESOLVED 01/16/2020 01/26/2020 OTHER SPECIFIED POSTPROCEDUR AL STATES (Z98.890 - ICD-10-CM) ACTIVE 04/30/2023 UNSTEADINESS ON FEET (R26.81 - ICD-10-CM) RESOLVED 01/16/2020 01/26/2020 UNSTEADINESS ON FEET (R26.81 - ICD-10-CM) ACTIVE 04/30/2023 Encounters Encounter Performer Performer Role Encounter Diagnoses Location Date Discharge - Discharged to home or self care - *Home Care Agency To Be Determined - Private home/apt. with home health services [facility] [place] 01/16/2020 12:25 pm EDT - 01/26/2020 11:07 am EDT Discharge - Discharged to home or self care - *Home Care Agency To Be Determined - Private home/apt. with home health services [facility] [place] 04/30/2023 05:59 pm EST - 05/11/2023 11:04 am EST Immunizations Vaccine Date TB 1 Step Mantoux (PPD) 05/01/2023 12:00 am EST TB 2 Step Mantoux Skin Test 05/08/2023 0 7:25 pm EST TB 2 Step Mantoux Skin Test 01/17/2020 0 9:00 am EDT Influenza (standard dose syringe) 2019 12:00 pm EDT PCV (Prevnar) 20 influenza-Afluria Standard 0.5ml Prefill ed ([id number]) Comirnaty (pfizer) COVID19 CVX 309 Social History
--- NOTE | 2024-05-27 13:38 | MHC.OFFVISCO ---
Intake Intake Visit Reasons: Anticoagulation Allergies shrimp [SHRIMP] Allergy (Mild, Verified 05/27/24 13:23) HIVES No Known Drug Allergies Allergy (Unknown, Verified 05/27/24 13:23) Unknown Nursing Note INR: 4.8 out of therapeutic range of 2-3 Pt states she took a whole tablet of warfarin yesterday and was only to take a half tab. Medications and supplements reviewed No changes in health, diet, medications, or supplements, Denies any signs and symptoms of bleeding or bruising or clotting. Bleeding, bruising, clotting discussed Nutritional guidance given to have a serving of greens today Dose: hold today and then 5mg X 5 days and 2.5mg X 2 days F/U INR: 5 days Patient verbalizes understanding of instructions with read back given Anti-Coag Initial Assessment Social Hx Patient Tobacco Use Status: Never used Tobacco Tobacco use type: Cigarette alcohol intake: never Alcohol intake frequency: a few times a month Coding Level of Care Code Est Patient Level 1 Diagnoses Current use of anticoagulant therapy Z79.01 Results AMB INR Fingerstick AMB INR Fingerstick 4.8 Last Edit by Clover Granados RN on 05/27/24 13:33 interface delay Assessment & Plan Assessment & Plan (1) Current use of anticoagulant therapy: Code(s): Z79.01 - technician terminal and repeater (current) use of 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
== END 2024-05-27 13:42 | disposition home or self-care (01) ==
LOC: HO.ACS 13:12
PROVIDERS: PCP Internal Medicine; Visit Provider Internal Medicine
DX: Z79.01 Long term (current) use of anticoagulants (principal)

== ENCOUNTER → 2024-06-01 12:59 | Outpatient (BNVA) | payer MEDICARE, OTHER, SELFPAY | PROVIDERS: PCP Internal Medicine; Visit Provider Internal Medicine | DX: Z86.718 Personal history of other venous thrombosis and embolism (principal); Z79.01 Long term (current) use of anticoagulants; Z51.81 Encounter for therapeutic drug level monitoring | CPT/HCPCS: 85610; 99211 ==

== ENCOUNTER 2024-06-15 13:00 | Outpatient (AMB) | payer MEDICARE, OTHER, SELFPAY ==
--- OUTSIDE RECORDS SUMMARY | 2024-06-15 13:13 | XMS_ITS | Encounter Summary ---
Author Organization [employer] Address [address] [place] [address] Care Team Providers Care Windows Administrator Name Role Phone Unavailable Primary Care Provider Unavailabl e Encounter Details Date Type Department Care Team (Late st Contact Info) Description 05/31/2024 Lab [facility] Neurodiagnostic [address] [place] [address] Syd Gastelum MD [address] [place] [address] [place] [address] Epilepsy, unspecified, not intractable, without status epilepticus (CMS/HCC) Social History Tobacco Use Types Packs/Day Years Used Date Smoking Tobacco: Never Assessed Comments Unknown Sex and Gender Information Value Date Recorded Sex Assigned at Not on file Legal Sex Female 3:46 PM EST Gender Identity Not on file Sexual Orientation Not on file documented as of this encounter Plan of Treatment Not on file documented as of this encounter Visit Diagnoses Diagnosis Epilepsy, unspecified, not intractable, without status epilepticus (CMS/HCC) documented in this encounter Orders Neurology Count Last Ordered Date First Orde red Date CONTINUOUS EEG 1 05/31/2024 documented in this encounter
--- OUTSIDE RECORDS SUMMARY | 2024-06-15 13:13 | XMS_ITS | Encounter Summary ---
Author Organization [employer] Address [address] [place] [address] Care Team Providers Care Cover Inspector Name Role Phone Unavailable Primary Care Provider Unavailabl e Encounter Details Date Type Department Care Team (Late st Contact Info) Description 05/30/2024 Lab [facility] Neurodiagnostic [address] [place] [address] Syd Gastelum MD [address] [place] [address] [place] [address] Epilepsy, unspecified, not intractable, without status [...]
--- OUTSIDE RECORDS SUMMARY | 2024-06-15 13:13 | XMS_ITS | Data Portability ---
Author Organization [place] - [facility], , [facility] Address [address] [place] [address] Assessment No assessment recorded. Plan of Treatment [...] ) ALT 42 U/L 30-65 Not Available [address], [address], 06/26/2008 02:36:06 11/29/1911/28/2005 hemog lobin A1C w/ mpg hemoglobin A1C 5.6 % 4.8-6. 0 goal: <7% in patie nts with diabe ernestine Not Available [address], [address], 06/26/2008 02:36:06 11/29/1911/28/2005 lipid panel cholesterol 245 mg/dL <200 mg/dL naz eable 200-2 39 mg/dL borde rline high >240 mg/dL high Not Available [address], [address], 06/26/2008 02:36:06 11/29/1911/28/2005 lipid panel triglyceride s 216 mg/dL <150 mg/dL helene l 150-1 99 mg/dL borde rline high 200-4 99 mg/dL high >500 mg/dL very high Not Available [address], [address], 06/26/2008 02:36:06 11/29/1911/28/2005 lipid panel direct HDL 62 mg/dL <40 mg/dL - major risk for CHD >60 mg/dL - negat danyell risk for CHD Not Available [address], [address], 06/26/2008 02:36:06 11/29/1911/28/2005 lipid panel direct LDL [...] r IS not necvinod faby. Not Available [address], [address], 06/26/2008 02:36:06 12/02/19 06 12/01/2005 mendez jha n time PT 41.1 secon ds 9.0-10 .4 high Not Available [address], [address], 06/26/2008 03:22:12 12/02/19 06 12/01/2005 proth radhabi n time INR 4.1 0.9-1. 1 high sugge sted value of 2.0-3 .0 for proph ylaxi s of venou s thomb osis, and preve ntion of embol ism. sugge sted value of 2.5-3 .5 for preve ntion of recur rent embol ism or patie nts with mecha nical prost hetic heart valve s. Not Available [address], [address], 06/26/2008 03:22:12 12/16/19 06 12/15/2005 proth rombi n time PT 23.6 secon ds 9.0-10 .4 high Not Available [address], [address], 06/26/2008 03:41:29 12/16/19 06 12/15/2005 proth rombi n time INR 2.4 0.9-1. 1 high sugge sted value of 2.0-3 .0 for proph ylaxi s of venou s thomb osis, and preve ntion of embol ism. sugge sted value of 2.5-3 .5 for preve ntion of recur rent embol ism or patie nts with mecha nical prost hetic heart valve s. Not Available [address], [address], 06/26/2008 03:41:29 12/20/19 06 12/19/2005 proth rombi n time PT 23.3 secon ds 9.0-10 .4 high Not Available [address], [address], 06/26/2008 03:27:20 12/20/19 06 12/19/2005 proth rombi n time INR 2.4 0.9-1. 1 high sugge sted value of 2.0-3 .0 for proph ylaxi s of venou s thomb osis, and preve ntion of embol ism. sugge sted value of 2.5-3 .5 for preve ntion of recur rent embol ism or patie nts with mecha nical prost hetic heart valve s. Not Available [address], [address], 06/26/2008 03:27:20 Result Notes None recorded. 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 Active 2005 Not Available [facility] 3 03:12:20 Benign essential hypertensi on 1389500 Active 2003 Not Available [facility] 3 03:12:20 Atrial fibrillati on 98271760 Active 2004 Not Available [facility] 3 03:12:20 Phlebitis of the femoral vein 084090980 Active 2003 Not Available [facility] 3 03:12:20 Major depression , melancholi c type 910573777 Active 2005 Not Available [facility] 3 03:12:20 Common cold 64116239 Completed 200403/16/2013 Not Available [facility] 3 02:00:29 Hand joint pain 993856662 Completed 200403/16/2013 Not Available [facility] 3 02:02:43 Edema of extremity 617013189 Completed 200303/16/2013 Not Available [facility] 3 02:02:55 On examinatio n - a rash Completed 200403/16/2013 Not Available [facility] 3 02:00:49 Seizure 88190898 Active 2004 Not Available [facility] 3 03:12:20 Type 2 diabetes mellitus without complicati on 942975191 Active 2003 Not Available [facility] 3 03:12:20 Acute maxillary sinusitis 96143429 Completed 200403/16/2013 Not Available [facility] 3 02:01:43 Abnormal weight gain 509982930 Active 2003 Not Available [facility] 3 03:12:20 Generalize d abdominal pain 462909907 Completed 200303/16/2013 Not Available [facility] 3 02:02:06 Hyperlipid emia 09301577 Active 2004 Not Available [facility] 3 03:12:20 Dysuria 88559355 Completed 200303/16/2013 Not Available [facility] 3 02:02:00 Peripheral venous insufficie ncy 76713100 Active 2003 Not Available [facility] 3 03:12:20 Hypothyroi dism 12514397 Active 2004 Not Available [facility] 3 03:12:20 Streptococ samm sore throat 73403257 Completed 200303/16/2013 Not Available [facility] 3 02:02:03 Acute bronchitis 85362124 Completed 200403/16/2013 Not Available [facility] 3 02:01:37 Problem Notes None recorded. Medical [...] influenza, unspecified formulation 4 completed Not Available [facility] 03/12/2011 05:21:07 influenza, unspecified formulation 4 completed Not Available [facility] 03/12/2011 05:21:07 influenza, unspecified formulation 5 completed Not Available [facility] 03/12/2011 05:21:29 influenza, unspecified formulation 5 completed Not Available [facility] 03/12/2011 05:21:29 Past Encounters Encounter ID Performer Location Encounter Start Date Encounter Closed Date Diagnosis/Indication Diagnosis SNOMED-CT Code Diagnosis ICD10 Code Diagnosis Note [id number] , [facility], OFFICE [address] [place] [address] 11/16/2003 12:14:30 11/22/2003 09:27:14 [id number] [facility], [place] [id number] 12/22/2003 09:56:38 12/25/2003 15:40:32 [id number] [facility], OFFICE [address] [place] [address] 01/19/2004 09:54:48 01/22/2004 08:56:58 [id number] [facility], OFFICE [address] [place] [id number] 02/02/2004 09:07:12 02/02/2004 12:21:32 [id number] [facility] [address] [place] [address] 02/02/2004 07:26:36 02/02/2004 09:21:04 [id number] [facility], [address] [place] [id number] 03/07/2004 08:50:31 03/07/2004 17:12:49 [id number] [facility], [place] [id number] 04/05/2004 09:48:00 04/09/2004 08:47:39 [id number] FP [facility], OFF[address] [place] [id number] 04/15/2004 15:03:12 04/15/2004 17:36:23 [id number] [facility], [place] [address] [place] [id number] 04/12/2004 10:53:34 05/17/2008 02:02:29 [id number] FP [facility], OFF[place] [address] [place] [id number] 1 04/22/2004 14:57:11 04/23/2004 09:26:19 [id number] FP [facility], OFF[address] [place] [id number] 05/03/2004 10:24:03 05/06/2004 08:51:52 [id number] [facility], OFF[address] [place] [id number] 1 05/20/2004 10:47:03 05/21/2004 08:35:20 [id number] FP [facility], OFF[address] [place] [id number] 1 05/24/2004 11:19:37 05/27/2004 09:14:32 [id number] [facility], OFFICE [address] [place] [id number] 05/27/2004 09:35:41 05/28/2004 09:13:28 [id number] [facility], OFFICE [address] [place] [id number] 06/04/2004 08:58:14 06/04/2004 17:23:42 [id number] [facility], OFFICE [address] [place] [id number] 06/18/2004 10:00:16 06/18/2004 16:52:29 [id number] [facility] [address] [place] [id number] 06/18/2004 07:34:32 06/18/2004 09:59:04 [id number] [facility], OFFICE [address] [place] [address] 06/27/2004 11:46:29 06/28/2004 09:09:13 [id number] [facility], [place] [id number] 08/14/2004 11:47:27 08/15/2004 08:54:14 [id number] [facility], [place] [id number] 09/19/2004 16:03:15 09/20/2004 16:06:43 [id number] [facility], [place] [id number] 10/17/2004 08:40:42 10/17/2004 15:32:26 [id number] [facility] [address] [place] [id number] 10/17/2004 07:29:38 10/17/2004 09:02:48 [id number] [facility] [place] [address] 10/25/2004 10:49:52 11/01/2004 08:36:26 [id number] [facility], [place] [id number] 11/19/2004 09:04:39 11/20/2004 08:14:19 [id number] [facility], OFFICE [address] [place] [address] [place] [id number] 11/26/2004 08:55:17 11/26/2004 16:24:15 [id number] [facility], OFFICE [address] [place] [id number] 12/03/2004 09:11:25 12/04/2004 14:38:40 [id number] [facility] , [facility] [address] [place] [id number] 12/05/2004 10:50:31 12/05/2004 11:29:40 [id number] [facility], OFFICE [address] [place] [id number] 12/20/2004 08:19:23 12/20/2004 15:41:51 [id number] [facility] [address] [place] [id number] 12/20/2004 07:34:27 12/20/2004 08:05:52 [id number] [facility], OFFICE [address] [place] [id number] 12/27/2004 09:49:39 12/27/2004 15:08:31 [id number] [facility], OFFICE [address] [place] [id number] 12/31/2004 11:01:20 01/02/2005 10:36:32 [id number] [facility], OFFICE [address] [place] [id number] 01/08/2005 10:14:21 01/08/2005 15:13:20 [id number] [facility], OFFICE [address] [place] [id number] 01/16/2005 10:11:30 01/16/2005 15:05:45 [id number] [facility], OFFICE [address] [place] [id number] 01/30/2005 10:31:42 01/30/2005 14:44:48 [id number] [facility], OFFICE [address] [place] [id number] 02/18/2005 15:03:31 02/18/2005 17:29:51 [id number] [facility], OFFICE [address] [place] [id number] 03/05/2005 14:53:36 03/05/2005 17:29:44 [id number] [facility], OFFICE [address] [place] [id number] 03/06/2005 11:53:52 03/06/2005 15:47:59 [id number] [facility] [address] [place] [address] 03/05/2005 15:26:52 03/05/2005 15:27:17 [id number] [facility], OFFICE [address] [place] [id number] 03/18/2005 16:33:44 03/19/2005 08:28:27 [id number] [facility], OFFICE [address] [place] [id number] 03/26/2005 14:01:26 03/26/2005 16:56:44 [id number] [facility], OFFICE [address] [place] [id number] 04/25/2005 15:06:42 04/29/2005 10:24:01 [id number] [facility], OFFICE [address] [place] [id number] 04/02/2005 13:33:35 04/02/2005 14:27:[id number] [place] [id number] 05/15/2005 13:10:28 05/15/2005 13:11:25 [id number] [facility] [address] [place] [id number] 06/02/2005 08:59:09 06/02/2005 09:00:10 [id number] [facility], OFFICE [address] [place] [id number] 06/09/2005 09:48:13 06/09/2005 17:49:27 [id number] [facility] [address] [place] [id number] 06/30/2005 07:39:14 06/30/2005 10:47:09 [id number] [place] [address] [place] [id number] 07/15/2005 07:35:21 07/15/2005 10:38:06 [id number] [facility] [address] [place] [id number] 08/05/2005 07:38:24 08/05/2005 10:34:53 [id number] [facility], OFFICE [address] [place] [id number] 08/08/2005 11:53:47 08/08/2005 14:52:47 [id number] [facility], OFFICE [address] [place] [id number] 08/11/2005 10:19:48 08/11/2005 15:05:14 [id number] [facility], OFFICE [address] [place] [id number] 08/18/2005 10:57:06 08/18/2005 15:15:34 [id number] [facility], OFFICE [address] [place] [id number] 08/25/2005 11:48:03 08/25/2005 17:40:40 [id number] [facility], OFFICE [address] [place] [id number] 09/17/2005 11:31:19 09/17/2005 15:17:53 [id number] FP [facility], OFFICE [address] [place] [id number] 10/09/2005 16:05:18 10/10/2005 16:24:20 [id number] [facility], OFFICE [address] [place] [id number] 1 10/20/2005 09:54:51 10/20/2005 17:30:28 [id number] [facility], OFFICE [address] [place] [id number] 1 11/17/2005 10:54:13 11/17/2005 17:50:24 [id number] [facility] [address] [place] [id number] 11/28/2005 07:30:03 11/28/2005 08:43:26 [id number] [facility], OFFICE [address] [place] [id number] 12/01/2005 10:50:57 05/17/2008 02:02:29 [id number] LAB - [facility] [address] [place] [id number] 12/01/2005 11:06:46 12/01/2005 11:07:08 [id number] FP [facility] OFFICE [address] [place] [id number] 12/02/2005 09:40:49 12/02/2005 12:24:54 [id number] FP [facility], OFFICE [address] [place] [id number] 1 12/05/2005 10:52:16 12/08/2005 09:32:36 [id number] FP [facility], OFFICE [address] [place] [id number] 1 12/10/2005 14:20:32 12/10/2005 17:21:31 [id number] [facility], OFFICE [address] [place] [id number] 1 12/12/2005 10:12:02 12/12/2005 13:55:19 [id number] [facility] [address] [place] [id number] 12/15/2005 07:56:58 12/15/2005 10:52:40 [id number] [facility] [address] [place] [id number] 12/19/2005 09:58:38 12/19/2005 09:58:49 Health Concerns Section Related Observation LastModified by Organization Detai ls LastModified Time None Recorded Concern Status LastModified by Organization Details LastModified Time None Recorded Advance Directives Directive None Recorded Payers Encounter Date Sequence Insurance Name Policy Number Policy Arce Covered Member ID Arce Member ID Guarantor Name 12/05/2005 1 MEDICARE B: [employer] MEDICARE Mary Jane [facility] [id number] 1 12/10/2005 1 MEDICARE B: [employer] MEDICARE Mray Jane [facility] [id number] 12/12/2005 1 MEDICARE B: [employer] MEDICARE Mary Jane [facility] [id number] 12/15/2005 1 MEDICARE B: [employer] MEDICARE Mary Jane [facility] [id number] 12/19/2005 1 MEDICARE B: [employer] MEDICARE Mary Jane [facility] [id number] 1 OBGyn Episode No OBEpisode recorded.
--- OUTSIDE RECORDS SUMMARY | 2024-06-15 13:13 | XMS_ITS | Encounter Summary ---
Author Organization [facility] Address [address] [place] [address] Care Team Providers Care Amr Physician Name Role Phone Unavailable Primary Care Provider Unavailabl e Encounter Details Date Type Department Care Team (Late st Contact Info) Description 05/27/2024 Lab [facility]diagn[facility] [address] [place] [address] Syd Gastelum MD [address] [place] [address] [place] [address] Epilepsy, unspecified, not intractable, without status [...]
--- OUTSIDE RECORDS SUMMARY | 2024-06-15 13:13 | XMS_ITS | Clinical Summary ---
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 Name Role Phone Unavailable Primary Care Provider Unavailabl e Encounters Date Type Department Care Team Description 05/31/2024 [facility] [address] [place] [phone] Syd Gastelum MD Epilepsy, unspecified, not intractable, without status epilepticus (CMS/HCC) 05/30/2024 [facility] [address] [place] [phone] Syd Gastelum MD Epilepsy, unspecified, not intractable, without status epilepticus (CMS/HCC) 05/27/2024 [facility] [address] [place] [phone] Syd Gastelum MD Epilepsy, unspecified, not intractable, without status epilepticus (CMS/HCC) from Last 3 Months Social History Tobacco Use Types Packs/Day Years Used Date Smoking Tobacco: Never Assessed Comments Unknown Sex and Gender Information Value Date Recorded Sex Assigned at Not on file Legal Sex Female 3:46 PM EST Gender Identity Not on file Sexual Orientation Not on file Plan of Treatment Health Maintenance Due Date Last Done Comments DTaP,Tdap,and Td Vaccines (1 - Tdap) 1965 Pneumococcal Vaccine: 50+ Ye ars (1 of 1 - PCV) 1996 Zoster Vaccines (1 of 2) 1996 RSV Immunization Patients 60 + Years Old (1 - 1-dose 75+ series) 2021 COVID-19 Vaccine ( - 2023-2 5 season) 2023 Influenza Vaccine [...] patient's age to complete this topic Meningococcal B Vacine Aged Out No lo nger eligible based on patient's age to complete this topic RSV Immunization Patients Un fili 20 months Aged Out No longer eligible b ased on patient's age to complete this topic Varicella Vaccines Aged Out No longer eligible based on patient's age to complete this topic Insurance [employer] MEDICARE [place]ICAID - [place]
--- NOTE | 2024-06-15 13:42 | MHC.OFFVISCO ---
Intake Intake Visit Reasons: Anticoagulation Allergies shrimp [SHRIMP] Allergy (Mild, Verified 06/15/24 13:25) HIVES No Known Drug Allergies Allergy (Unknown, Verified 06/15/24 13:25) Unknown Medication List - Last Reconciled 06/15/24 by Celeste Chong RN ammonium lactate 12% 1 appl topical BID apple cider vinegar PO BID atorvastatin 40 mg PO DAILY blood sugar diagnostic (Accu-Chek Guide test strips) As directed 2 times per day blood-glucose meter TEST 2 TIMES DAILY blood-glucose meter (Accu-Chek Guide Glucose Meter) As directed ciprofloxacin HCl (Cipro) 250 mg PO BID cyanocobalamin (vitamin B-12) 1,000 mcg PO DAILY diltiazem HCl CD (Cardizem CD) 120 mg See Protocol PO DAILY esomeprazole magnesium (Nexium) 20 mg PO DAILY furosemide 20 mg PO DAILY glipizide 5 mg PO DAILY lancing device ACCU-CHECK DARLINE DEVICE lancing device (Adjustable Lancing Device) As directed lisinopril 20 mg PO DAILY phenytoin sodium extended (Dilantin Extended) 200 mg (2 x 100 mg) PO BID phenytoin sodium extended 200 mg PO BID tizanidine 4 mg PO Q8H PRN triamcinolone acetonide 0.5% 1 appl topical TID warfarin 5 mg See Protocol PO DAILY Nursing Note NO CP,SOB,DIET/MED CHANGES,FALLS OR SX OF BLEEDING. DECREASE WEEKLY DOSE AND FOLLOW-UP IN 2 WEEKS. WILL BE SURE TO HAVE DARK GREENS TODAY AND 2-3X WEEKLY GOOD UNDERSTANDING OF DOSING INSTR. 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
[2024-06-15 15:59] LABS: Prothrombin Time Whole Bld POC 42.1 sec (11.1-13.5); ~PT, ~INR - Anti Coag Clinic 3.5 (0.9-1.1)
== END 2024-06-15 13:44 | disposition home or self-care (01) ==
LOC: HO.ACS 13:00
PROVIDERS: PCP Internal Medicine; Visit Provider Internal Medicine
DX: Z79.01 Long term (current) use of anticoagulants (principal)

== ENCOUNTER → 2024-06-15 13:00 | Outpatient (BNVA) | payer MEDICARE, OTHER, SELFPAY | PROVIDERS: PCP Internal Medicine; Visit Provider Internal Medicine | DX: Z86.718 Personal history of other venous thrombosis and embolism (principal); Z79.01 Long term (current) use of anticoagulants; Z51.81 Encounter for therapeutic drug level monitoring | CPT/HCPCS: 85610; 99211 ==

== ENCOUNTER 2024-06-29 09:52 | Outpatient (AMB) | payer MEDICARE, OTHER, SELFPAY ==
--- NOTE | 2024-06-29 09:57 | MHC.OFFVISCO ---
Intake Intake Visit Reasons: Anticoagulation Allergies shrimp [SHRIMP] Allergy (Mild, Verified 06/29/24 09:52) HIVES No Known Drug Allergies Allergy (Unknown, Verified 06/29/24 09:52) Unknown Medication List - Last Reconciled 06/29/24 by Bhakti Baez RN ammonium lactate 12% 1 appl topical BID apple cider vinegar PO BID atorvastatin 40 mg PO DAILY blood sugar diagnostic (Accu-Chek Guide test strips) As directed 2 times per day blood-glucose meter TEST 2 TIMES DAILY blood-glucose meter (Accu-Chek Guide Glucose Meter) As directed ciprofloxacin HCl (Cipro) 250 mg PO BID cyanocobalamin (vitamin B-12) 1,000 mcg PO DAILY diltiazem HCl CD (Cardizem CD) 120 mg See Protocol PO DAILY esomeprazole magnesium (Nexium) 20 mg PO DAILY furosemide 20 mg PO DAILY glipizide 5 mg PO DAILY lancing device ACCU-CHECK DARLINE DEVICE lancing device (Adjustable Lancing Device) As directed lisinopril 20 mg PO DAILY phenytoin sodium extended (Dilantin Extended) 200 mg (2 x 100 mg) PO BID phenytoin sodium extended 200 mg PO BID tizanidine 4 mg PO Q8H PRN triamcinolone acetonide 0.5% 1 appl topical TID warfarin 5 mg See Protocol PO DAILY Nursing Note INR 3.3-? out of therapeutic range of 2-3 Medications and supplements reviewed Patient status: pt with increased stress Medications or supplements: mucinex prn- no interaction with warfarin per micromedex, tylenol prn Diet: decreased Denies any signs and symptoms of bleeding or clotting or unusual bruising Bleeding, bruising, clotting discussed Nutritional guidance given: eat a green today Dose: pt req to cont same dosing- 2.5mg x 3, 5mg x 4 pt req to lower inr by dietary management rather than dose reduction F/U INR Date : 1 week Patient verbalizing understanding of instructions given. Anti-Coag Initial Assessment Social Hx Patient Tobacco Use Status: Never used Tobacco Tobacco use type: Cigarette alcohol intake: never Alcohol intake frequency: a few times a month Coding Level of Care Code Est Patient Level 1 Diagnoses Current use of anticoagulant therapy Z79.01 Results AMB INR Fingerstick AMB INR Fingerstick 3.3 Last Edit by Bhakti Baez RN on 06/29/24 09:59 interface delay Assessment & Plan Assessment & Plan (1) Current use of anticoagulant therapy: Code(s): Z79.01 - [facility] (current) use of 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 Medications: New guaifenesin ER (Mucinex) 600 mg PO Q12H PRN
[2024-06-30 08:26] LABS: Prothrombin Time Whole Bld POC 40.1 sec (11.1-13.5); ~PT, ~INR - Anti Coag Clinic 3.3 (0.9-1.1)
== END 2024-06-29 10:11 | disposition home or self-care (01) ==
LOC: HO.ACS 09:52
PROVIDERS: PCP Internal Medicine; Visit Provider Internal Medicine
DX: Z79.01 Long term (current) use of anticoagulants (principal)

== ENCOUNTER → 2024-06-29 09:52 | Outpatient (BNVA) | payer MEDICARE, OTHER, SELFPAY | PROVIDERS: PCP Internal Medicine; Visit Provider Internal Medicine | DX: Z86.718 Personal history of other venous thrombosis and embolism (principal); Z79.01 Long term (current) use of anticoagulants; Z51.81 Encounter for therapeutic drug level monitoring | CPT/HCPCS: 85610; 99211 ==

== ENCOUNTER 2024-07-06 09:12 | Outpatient (AMB) | payer MEDICARE, OTHER, SELFPAY ==
[2024-07-06 09:31] LABS: Prothrombin Time Whole Bld POC 56.2 sec (11.1-13.5); ~PT, ~INR - Anti Coag Clinic 4.7 (0.9-1.1)
--- NOTE | 2024-07-06 09:41 | MHC.OFFVISCO ---
Intake Intake Visit Reasons: Anticoagulation Allergies shrimp [SHRIMP] Allergy (Mild, Verified 07/06/24 09:24) HIVES No Known Drug Allergies Allergy (Unknown, Verified 07/06/24 09:24) Unknown Medication List - Last Reconciled 07/06/24 by Celeste Chong RN ammonium lactate 12% 1 appl topical BID apple cider vinegar PO BID atorvastatin 40 mg PO DAILY blood sugar diagnostic (Accu-Chek Guide test strips) As directed 2 times per day blood-glucose meter TEST 2 TIMES DAILY blood-glucose meter (Accu-Chek Guide Glucose Meter) As directed ciprofloxacin HCl (Cipro) 250 mg PO BID cyanocobalamin (vitamin B-12) 1,000 mcg PO DAILY diltiazem HCl CD (Cardizem CD) 120 mg See Protocol PO DAILY esomeprazole magnesium (Nexium) 20 mg PO DAILY furosemide 20 mg PO DAILY glipizide 5 mg PO DAILY guaifenesin ER (Mucinex) 600 mg PO Q12H PRN lancing device ACCU-CHECK DARLINE DEVICE lancing device (Adjustable Lancing Device) As directed lisinopril 20 mg PO DAILY phenytoin sodium extended (Dilantin Extended) 200 mg (2 x 100 mg) PO BID phenytoin sodium extended 200 mg PO BID tizanidine 4 mg PO Q8H PRN triamcinolone acetonide 0.5% 1 appl topical TID warfarin 5 mg See Protocol PO DAILY Nursing Note PT.HAS SIGNIF. STRESS OVER BROTHER'S MEDICAL ISSUES. NO CP,SOB,DIET/MED CHANGES,FALLS OR SX OF BLEEDING. HOLD WARFARIN TODAY AND DECREASE TOMORROW THEN RESUME USUAL DOSE AND FOLLOW-UP IN 1 WEEK. 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
--- OUTSIDE RECORDS SUMMARY | 2024-07-06 09:53 | XMS_ITS ---
Author Organization [facility] [place] Care Team Providers Care Information Technology Security Analyst Name Role Phone Que [place] Unavailable Unavailable Waleska Johnson Unavailable Unavailable Toney Ocampo Unavailable Unavailable Allergies and adverse reactions Code CodeSystem Substance Reaction Severity StartDate Concern Status Shrimp Morbilliform er uption (code- 729402337, SNOMED CT) Moderate 01/16/2020 active Care Team Name Role Address Phone Organization Dates Que [place]enport Attending Physician [facility], [place], [address], [place] (Office): : : [facility] [place] 04/30/2023 - 05/11/2023 Waleska Johnson Attending Physician [address] [facility] [address] [facility], [place], [address], [facility] (Office): : [facility] [place] 04/30/2023 - 05/11/2023 Toney Ocampo Attending Physician [address] [facility] [address], [place], [address], [place] (Office): : : [facility] [place] 04/30/2023 - 05/11/2023 Immunizations Immunization Status Vaccine Details Vaccine Code CodeSystem Date Notes TB 1 Step Mantoux (PPD) completed tuberculin skin test; purified protein derivative solution, intradermal lotNumber: [id number] expiry: 05/28/2024 Mfg: [employer] Given 0.1 ml Left Forearm intradermally 96 CVX created date: 05/02/2023 consent date: 05/01/2023 administere d date: 05/01/2023 TB 2 Step Mantoux Skin Test completed tuberculin skin test; purified protein derivative solution, intradermal lotNumber: [id number] expiry: 05/28/2024 Mfg: [employer] Given 0.1 ml Right Forearm intradermally Step 1 of Multi-step with next step required 96 CVX created date: 05/09/2023 consent date: 05/08/2023 administere d date: 05/09/2023 TB 2 Step Mantoux Skin Test completed tuberculin skin test; purified protein derivative solution, intradermal Mfg: [employer] Given 0.1 ml Right Forearm intradermally Step 1 of Multi-step with next step required 96 CVX created date: 01/17/2020 consent date: 01/17/2020 administere d date: 01/17/2020 Influenza (standard dose syringe) completed Influenza, Madin [place] Canine Kidney, subunit, quadrivalent, injectable, preservative free Given intradermally 171 CVX created date: 01/24/2020 administere d date: 01/10/2020 PCV (Prevnar) 20 cancelled Pneumococcal conjugate vaccine 20-valent (PCV20), polysaccharide [id number] conjugate, adjuvant, preservative free 216 CVX created date: 05/06/2023 consent date: 05/06/2023 influenza-Afluria Standard 0.5ml Prefilled ([id number]) cancelled Influenza, split virus, quadrivalent, injectable, preservative free 150 CVX created date: 05/06/2023 consent date: 05/06/2023 Comirnaty (Stuffle) COVID19 [id number] cancelled SARS-COV-2 (COVID-19) vaccine, mRNA, spike protein, LNP, preservative free, pal-sucrose, 30 mcg/0.3 mL dose 309 CVX created date: 05/06/2023 consent date: 05/06/2023 Mental Status Section Date Assessment Total Score Description 05/11/2023 CAM 0 No delirium ind icated 05/05/2023 BIMS 15 cognitively int act CAM 0 No delirium ind icated Problems Problem # Description Date of onset Resolved Date Code CodeSystem Concern Status 1 ACTIVATED PROTEIN C RESISTANCE 04/30/[address] active 2 MORBID (SEVERE) OBESITY DUE TO EXCESS CALORIES 04/30/[address] active 3 MULTIPLE FRACTURES OF RIBS, LEFT SIDE, SUBSEQUENT ENCOUNTER FOR FRACTURE WITH ROUTINE HEALING 04/30/[address] active 4 OTHER SPECIFIED POSTPROCEDURAL STATES 04/30/[address] active 5 UNSPECIFIED FALL, SUBSEQUENT ENCOUNTER 04/30/[address] active 6 UNSTEADINESS ON FEET 04/30/[address] active 7 CONTUSION OF LEFT KNEE, SUBSEQUENT ENCOUNTER 01/16/2001/26/[address] completed 8 ESSENTIAL (PRIMARY) HYPERTENSION 01/16/[address] active 9 HYPERLIPIDEMIA, UNSPECIFIED 01/16/[address] active 10 PAIN IN LEFT KNEE 01/16/2001/26/[address] completed 11 PERSONAL HISTORY OF OTHER VENOUS THROMBOSIS AND EMBOLISM 01/16/[address] active 12 TYPE 2 DIABETES MELLITUS WITHOUT COMPLICATIONS 01/16/[address] active 13 UNSTEADINESS ON FEET 01/16/2001/26/[address] completed 14 WEAKNESS 01/16/2001/26/[address] completed Reason for Referral No Reasons for Referral Entered Social History Social History Observation Description Start Date End Date Code Code System Current Smoking Status Tobacco smoking consumption unknown 762655089 SNOMED CT Sex Assigned At Female 1945 95469-7 [facility] Vital Signs Code Code System Vitals Name Values and Units Timing Information 59559-8 [facility] Pain Level Value=0.0 05/11/2023 00190-7 [facility] Weight Qvpow=062.8 Units=Lbs 9279-1 [facility] Respiratory Rate Value=16.0 Units=/m in 05/10/2023 8462-4 [facility] Blood Pressure-Diastolic Value=72 Un its=mmHg 05/10/2023 8480-6 [facility] Blood Pressure-Systolic Sptrl=868 Un its=mmHg 05/10/2023 8310-5 [facility] Body Temperature Value=97.1 Units=?? F 05/10/2023 8867-4 [facility] Heart rate Value=80.0 Units=/min 81963-4 [facility] O2 % BldC Oximetry Value=95.0 Units= % 05/10/2023 2339-0 [facility] Blood Sugar Uzxbf=499.0 Units=mg/dL 05/03/2023 8302-2 [facility] Height Value=61.6 Units=Inches 05/01/2023
--- OUTSIDE RECORDS SUMMARY | 2024-07-06 09:53 | XMS_ITS | Clinical Summary ---
Author Organization [facility] Address [address] [place] [address] Care Team Providers Care Installation Tech Name Role Phone Unavailable Primary Care Provider Unavailabl e Encounters Date Type Department Care Team Description 05/31/2024 [facility] [address] [place] [address] [phone] Syd Gastelum MD Epilepsy, unspecified, not intractable, without status epilepticus (CMS/HCC) 05/30/2024 [facility] [address] [place] [address] [phone] Syd Gastelum MD Epilepsy, unspecified, not intractable, without status epilepticus (CMS/HCC) 05/27/2024 [facility] [address] [place] [phone] Syd Gastelum MD Epilepsy, unspecified, not intractable, [...]
--- OUTSIDE RECORDS SUMMARY | 2024-07-06 09:53 | XMS_ITS | Data Portability ---
Author Organization [place] - [facility], , [facility] Address [address] [place] [address] Assessment No assessment recorded. Plan of Treatment [...] ) ALT 42 U/L 30-65 Not Available [address], [address], 06/26/2008 02:36:06 11/29/1911/28/2005 hemog lobin A1C w/ mpg hemoglobin A1C 5.6 % 4.8-6. 0 goal: <7% in patie nts with diabe ernestine Not Available [address], [address], 06/26/2008 02:36:06 11/29/1911/28/2005 lipid panel cholesterol 245 mg/dL <200 mg/dL naz eable 200-2 39 mg/dL borde rline high >240 mg/dL high Not Available [address], [address], 06/26/2008 02:36:06 11/29/1911/28/2005 lipid panel triglyceride s 216 mg/dL <150 mg/dL helene l 150-1 99 mg/dL borde rline high 200-4 99 mg/dL high >500 mg/dL very high Not Available [address], [address], 06/26/2008 02:36:06 11/29/1911/28/2005 lipid panel direct HDL 62 mg/dL <40 mg/dL - major risk for CHD >60 mg/dL - negat danyell risk for CHD Not Available [address], [address], 06/26/2008 02:36:06 11/29/1911/28/2005 lipid panel direct LDL [...] r IS not necvinod faby. Not Available [address], [address], 06/26/2008 02:36:06 12/02/19 06 12/01/2005 mendez jha n time PT 41.1 secon ds 9.0-10 .4 high Not Available [address], [address], 06/26/2008 03:22:12 12/02/19 06 12/01/2005 proth radhabi n time INR 4.1 0.9-1. 1 high sugge sted value of 2.0-3 .0 for proph ylaxi s of venou s thomb osis, and preve ntion of embol ism. sugge sted value of 2.5-3 .5 for preve ntion of recur rent embol ism or patie nts with mecha nical prost hetic heart valve s. Not Available [address], [address], 06/26/2008 03:22:12 12/16/19 06 12/15/2005 proth rombi n time PT 23.6 secon ds 9.0-10 .4 high Not Available [address], [address], 06/26/2008 03:41:29 12/16/19 06 12/15/2005 proth rombi n time INR 2.4 0.9-1. 1 high sugge sted value of 2.0-3 .0 for proph ylaxi s of venou s thomb osis, and preve ntion of embol ism. sugge sted value of 2.5-3 .5 for preve ntion of recur rent embol ism or patie nts with mecha nical prost hetic heart valve s. Not Available [address], [address], 06/26/2008 03:41:29 12/20/19 06 12/19/2005 proth rombi n time PT 23.3 secon ds 9.0-10 .4 high Not Available [address], [address], 06/26/2008 03:27:20 12/20/19 06 12/19/2005 proth rombi n time INR 2.4 0.9-1. 1 high sugge sted value of 2.0-3 .0 for proph ylaxi s of venou s thomb osis, and preve ntion of embol ism. sugge sted value of 2.5-3 .5 for preve ntion of recur rent embol ism or patie nts with mecha nical prost hetic heart valve s. Not Available [address], [address], 06/26/2008 03:27:20 Result Notes None recorded. Problems Name Problem SNOMED Code Status Onset Date Resolution Date Notes Provider Name and Address Organization Details Recorded Time Mixed hyperlipid emia 771583616 Active 2003 Not Available [facility] 3 03:12:20 Essential hypertensi on 70289171 Active 2003 Not Available 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 Active 2005 Not Available [facility] 3 03:12:20 Benign essential hypertensi on 9064588 Active 2003 Not Available [facility] 3 03:12:20 Atrial fibrillati on 93189035 Active 2004 Not Available [facility] 3 03:12:20 Phlebitis of the femoral vein 447713006 Active 2003 Not Available [facility] 3 03:12:20 Major depression , melancholi c type 560264177 Active 2005 Not Available [facility] 3 03:12:20 Common cold 63678792 Completed 200403/16/2013 Not Available [facility] 3 02:00:29 Hand joint pain 084427843 Completed 200403/16/2013 Not Available [facility] 3 02:02:43 Edema of extremity 288116720 Completed 200303/16/2013 Not Available [facility] 3 02:02:55 On examinatio n - a rash Completed 200403/16/2013 Not Available [facility] 3 02:00:49 Seizure 07658602 Active 2004 Not Available [facility] 3 03:12:20 Type 2 diabetes mellitus without complicati on 179369495 Active 2003 Not Available [facility] 3 03:12:20 Acute maxillary sinusitis 16434617 Completed 200403/16/2013 Not Available [facility] 3 02:01:43 Abnormal weight gain 999241340 Active 2003 Not Available [facility] 3 03:12:20 Generalize d abdominal pain 026396879 Completed 200303/16/2013 Not Available [facility] 3 02:02:06 Hyperlipid emia 57534707 Active 2004 Not Available [facility] 3 03:12:20 Dysuria 99344248 Completed 200303/16/2013 Not Available [facility] 3 02:02:00 Peripheral venous insufficie ncy 23217548 Active 2003 Not Available [facility] 3 03:12:20 Hypothyroi dism 56522059 Active 2004 Not Available [facility] 3 03:12:20 Streptococ samm sore throat 15321327 Completed 200303/16/2013 Not Available [facility] 3 02:02:03 Acute bronchitis 11789617 Completed 200403/16/2013 Not Available [facility] 3 02:01:37 Problem Notes None recorded. Medical [...] influenza, unspecified formulation 4 completed Not Available [facility] 03/12/2011 05:21:07 influenza, unspecified formulation 4 completed Not Available [facility] 03/12/2011 05:21:07 influenza, unspecified formulation 5 completed Not Available [facility] 03/12/2011 05:21:29 influenza, unspecified formulation 5 completed Not Available [facility] 03/12/2011 05:21:29 Past Encounters Encounter ID Performer Location Encounter Start Date Encounter Closed Date Diagnosis/Indication Diagnosis SNOMED-CT Code Diagnosis ICD10 Code Diagnosis Note [id number] , [facility], OFFICE [address] [place] [address] 11/16/2003 12:14:30 11/22/2003 09:27:14 [id number] [facility], [place] [address] 12/22/2003 09:56:38 12/25/2003 15:40:32 [id number] [facility], OFFICE [address] [place] [address] 01/19/2004 09:54:48 01/22/2004 08:56:58 [id number] [facility], OFFICE [address] [place] [address] 02/02/2004 09:07:12 02/02/2004 12:21:32 [id number] [facility] [address] [place] [address] 02/02/2004 07:26:36 02/02/2004 09:21:04 [id number] [facility], [address] [place] [address] 03/07/2004 08:50:31 03/07/2004 17:12:49 [id number] [facility], [place] [address] 04/05/2004 09:48:00 04/09/2004 08:47:39 [id number] FP [facility], [address] [place] [id number] 04/15/2004 15:03:12 04/15/2004 17:36:23 [id number] [facility], [place] [address] [place] [address] 04/12/2004 10:53:34 05/17/2008 02:02:29 [id number] FP [facility], OFFICE [place] [place] [id number] 04/22/2004 14:57:11 04/23/2004 09:26:19 [id number] FP [facility], OFFICE [address] J[place]AXIMDanilo [place] [id number] 1 05/03/2004 10:24:03 05/06/2004 08:51:52 [id number] [facility], OFFICE [address] [place]Dan[place] [id number] 05/20/2004 10:47:03 05/21/2004 08:35:20 [id number] FP [facility], OFF[address] [place]Dan[place] [id number] 1 05/24/2004 11:19:37 05/27/2004 09:14:32 [id number] [facility], OFFICE [address] [place] [address] 05/27/2004 09:35:41 05/28/2004 09:13:28 [id number] [facility], OFFICE [address] [place] [address] 06/04/2004 08:58:14 06/04/2004 17:23:42 [id number] [facility], OFFICE [address] [place] [address] 06/18/2004 10:00:16 06/18/2004 16:52:29 [id number] [facility] - [facility] [address] [place] [id number] 06/18/2004 07:34:32 06/18/2004 09:59:04 [id number] [facility], OFFICE [address] [place] [address] 06/27/2004 11:46:29 06/28/2004 09:09:13 [id number] [facility], [place] [address] 08/14/2004 11:47:27 08/15/2004 08:54:14 [id number] [facility], [place] [address] 09/19/2004 16:03:15 09/20/2004 16:06:43 [id number] [facility], [place] [address] 10/17/2004 08:40:42 10/17/2004 15:32:26 [id number] [facility] [address] [place] [address] 10/17/2004 07:29:38 10/17/2004 09:02:48 [id number] [facility] [place] [address] 10/25/2004 10:49:52 11/01/2004 08:36:26 [id number] [facility], [place] [address] 11/19/2004 09:04:39 11/20/2004 08:14:19 [id number] [facility], OFFICE [address] [place] [address] [place] [address] 11/26/2004 08:55:17 11/26/2004 16:24:15 [id number] [facility], OFFICE [address] [place] [address] 12/03/2004 09:11:25 12/04/2004 14:38:40 [id number] [facility] , [facility] [address] [place] [id number] 12/05/2004 10:50:31 12/05/2004 11:29:40 [id number] [facility], OFFICE [address] [place] [address] 12/20/2004 08:19:23 12/20/2004 15:41:51 [id number] [facility] - [facility] [address] [place] [id number] 12/20/2004 07:34:27 12/20/2004 08:05:52 [id number] [facility], OFFICE [address] [place] [address] 12/27/2004 09:49:39 12/27/2004 15:08:31 [id number] [facility], OFFICE [address] [place] [address] 12/31/2004 11:01:20 01/02/2005 10:36:32 [id number] [facility], OFFICE [address] [place] [address] 01/08/2005 10:14:21 01/08/2005 15:13:20 [id number] [facility], OFFICE [address] [place] [address] 01/16/2005 10:11:30 01/16/2005 15:05:45 [id number] [facility], OFFICE [address] [place] [address] 01/30/2005 10:31:42 01/30/2005 14:44:48 [id number] [facility], OFFICE [address] [place] [address] 02/18/2005 15:03:31 02/18/2005 17:29:51 [id number] [facility], OFFICE [address] [place] [address] 03/05/2005 14:53:36 03/05/2005 17:29:44 [id number] [facility], OFFICE [address] [place] [id number] 03/06/2005 11:53:52 03/06/2005 15:47:59 [id number] [facility] [address] [place] [address] 03/05/2005 15:26:52 03/05/2005 15:27:17 [id number] [facility], OFFICE [address] [place] [address] 03/18/2005 16:33:44 03/19/2005 08:28:27 [id number] [facility], OFFICE [address] [place] [id number] 03/26/2005 14:01:26 03/26/2005 16:56:44 [id number] [facility], OFFICE [address] [place] [address] 04/25/2005 15:06:42 04/29/2005 10:24:01 [id number] [facility], OFFICE [address] [place] [address] 04/02/2005 13:33:35 04/02/2005 14:27:[id number] [place] [address] 05/15/2005 13:10:28 05/15/2005 13:11:25 [id number] [facility] [address] [place] [address] 06/02/2005 08:59:09 06/02/2005 09:00:10 [id number] [facility], OFFICE [address] [place] [address] 1 06/09/2005 09:48:13 06/09/2005 17:49:27 [id number] [facility] [address] [place] [address] 06/30/2005 07:39:14 06/30/2005 10:47:09 [id number] [place] [address] [place] [id number] 07/15/2005 07:35:21 07/15/2005 10:38:06 [id number] [facility] [address] [place] [address] 08/05/2005 07:38:24 08/05/2005 10:34:53 [id number] [facility], OFFICE [address] [place] [address] 08/08/2005 11:53:47 08/08/2005 14:52:47 [id number] [facility], OFFICE [address] [place] [address] 08/11/2005 10:19:48 08/11/2005 15:05:14 [id number] [facility], OFFICE [address] [place] [id number] 08/18/2005 10:57:06 08/18/2005 15:15:34 [id number] [facility], OFFICE [address] [place] [address] 08/25/2005 11:48:03 08/25/2005 17:40:40 [id number] [facility], OFFICE [address] [place] [address] 09/17/2005 11:31:19 09/17/2005 15:17:53 [id number] FP [facility], OFFICE [address] [place] [id number] 10/09/2005 16:05:18 10/10/2005 16:24:20 [id number] [facility], OFFICE [address] [place] [id number] 10/20/2005 09:54:51 10/20/2005 17:30:28 [id number] [facility], OFFICE [address] [place] [address] 1 11/17/2005 10:54:13 11/17/2005 17:50:24 [id number] [facility] [address] [place] [address] 11/28/2005 07:30:03 11/28/2005 08:43:26 [id number] [facility], OFFICE [address] [place] [address] 12/01/2005 10:50:57 05/17/2008 02:02:29 [id number] LAB - [facility] [address] [place] [address] 12/01/2005 11:06:46 12/01/2005 11:07:08 [id number] FP [facility] OFFICE [address] [place] [address] 12/02/2005 09:40:49 12/02/2005 12:24:54 [id number] FP [facility], OFFICE [address] [place] [address] 12/05/2005 10:52:16 12/08/2005 09:32:36 [id number] FP [facility], OFFICE [address] [place] [address] 12/10/2005 14:20:32 12/10/2005 17:21:31 [id number] [facility], OFFICE [address] [place] [address] 12/12/2005 10:12:02 12/12/2005 13:55:19 [id number] [facility] [address] [place] [address] 12/15/2005 07:56:58 12/15/2005 10:52:40 [id number] [facility] [address] [place] [address] 12/19/2005 09:58:38 12/19/2005 09:58:49 Health Concerns Section Related Observation LastModified by Organization Detai ls LastModified Time None Recorded Concern Status LastModified by Organization Details LastModified Time None Recorded Advance Directives Directive None Recorded Payers Encounter Date Sequence Insurance Name Policy Number Policy Arce Covered Member ID Arce Member ID Guarantor Name 12/05/2005 1 MEDICARE B: [employer] MEDICARE [facility] [id number] 1 12/10/2005 1 MEDICARE B: [employer] MEDICARE [facility] [id number] 1 12/12/2005 1 MEDICARE B: [employer] MEDICARE [facility] [id number] 1 12/15/2005 1 MEDICARE B: [employer] MEDICARE [facility] [id number] 1 12/19/2005 1 MEDICARE B: [employer] MEDICARE [facility] [id number] 1 OBGyn Episode No OBEpisode recorded.
--- OUTSIDE RECORDS SUMMARY | 2024-07-06 09:53 | XMS_ITS ---
Author Organization [facility] on Care Team Providers Care Shader And Toner Name Role Phone Radha Franklin Unavailable Unavailable Nichelle Cardozo Unavailable Unavailable Marvin Jones Unavailable Unavailable Ravi Clark Unavailable Unavailable Milton, Shelby Unavailable Unavailable Lorenza Friend Unavailable Unavailable Clover Mejia Unavailable Unavailable Celeste Alicea Unavailable Unavailable Allergies and adverse reactions Code CodeSystem Substance Reaction Severity StartDate Concern Status Shrimp Unknown 01/30/2023 active Care Team Name Role Address Phone Organization Dates Ravi Clark PCP [address] [place] [address], [id number], [place]Office[place] : [facility] 01/30/2023 - 02/07/2023 Radha Franklin Attending Physician [address] [place] [address], [place] (Office): [facility] 01/30/2023 - 02/07/2023 Nichelle Cardozo Attending Physician [address] [place] [address], [address], [place] (Office): [facility] 01/30/2023 - 02/07/2023 Marvin Jones Attending Physician [address] [place] [address], [id number], [place] (Office): [facility] 01/30/2023 - 02/07/2023 Shelby Rose Attending Physician [address] [place] [address], [address], [place] (Office[place] : [facility] 01/30/2023 - 02/07/2023 Lorenza Friend Attending Physician [address], [address], [place] (Office[place] : [facility] 01/30/2023 - 02/07/2023 Clover Mejia Attending Physician [address] [facility] [address], [place], [address], [facility] (Office): : [facility] 01/30/2023 - 02/07/2023 Celeste Alicea Attending Physician [address] [place], [address], [place] (Office): [facility] 01/30/2023 - 02/07/2023 Immunizations Immunization Status Vaccine Details Vaccine Code CodeSystem Date Notes Influenza completed Influenza, split virus, trivalent, injectable, contains preservative 141 CVX created date: 02/02/2023 administer ed date: 02/15/2022 Pneumococcal Conjugate Vaccine (PCV13) completed pneumococcal conjugate vaccine, 13 valent 133 CVX created date: 02/02/2023 administer ed date: 03/10/2015 SARS-COV-2 (COVID-19) completed SARS-COV-2 (COVID-19) vaccine, mRNA, spike protein, LNP, preservative free, 30 mcg/0.3mL dose Mfg: nubia Step 2 of Multi-step with next step required 208 CVX created date: 02/02/2023 administer ed date: 09/01/2020 SARS-COV-2 (COVID-19) completed SARS-COV-2 (COVID-19) vaccine, mRNA, spike protein, LNP, preservative free, 30 mcg/0.3mL dose Mfg: nubia Step 1 of Multi-step with next step required 208 CVX created date: 02/02/2023 administer ed date: 08/02/2020 Prevnar 20 Pneumococcal conjugate (PCV20) completed Pneumococcal conjugate vaccine 20-valent (PCV20), polysaccharide [id number] conjugate, adjuvant, preservative free lotNumber: [id number] expiry: 03/27/2024 Mfg: [employer] Given 0.5 ml Left Deltoid intramuscularly 216 CVX created date: 02/02/2023 consent date: 02/02/2023 administer ed date: 02/05/2023 Educated by Ruddy Bullock on 02/02/2023 SARS-COV-2 (COVID-19 BOOSTER) cancelled SARS-COV-2 (COVID-19) vaccine, mRNA, spike protein, LNP, preservative free, 100 mcg/0.5mL dose or 50 mcg/0.25mL dose 207 CVX created date: 02/02/2023 consent date: 02/02/2023 Educated by Ruddy Bullock on 02/02/2023 SARS-COV-2 (COVID-19 BOOSTER) completed SARS-COV-2 (COVID-19) vaccine, mRNA, spike protein, LNP, preservative free, 30 mcg/0.3mL dose Mfg: POPAPP 208 CVX created date: 02/02/2023 administer ed date: 03/13/2021 Mental Status Section Date Assessment Total Score Description 02/07/2023 BIMS 15 cognitively int act CAM 0 No delirium ind icated 02/01/2023 BIMS 15 cognitively int act CAM 0 No delirium ind icated Problems Problem # Description Date of onset Resolved Date Code CodeSystem Concern Status 1 ACUTE PANCREATITIS WITHOUT NECROSIS OR INFECTION, UNSPECIFIED 01/30/[address] active 2 BACTEREMIA 01/30/[address] active 3 EPILEPSY, UNSPECIFIED, NOT INTRACTABLE, WITHOUT STATUS EPILEPTICUS 01/30/[address] active 4 ESSENTIAL (PRIMARY) HYPERTENSION 01/30/[address] active 5 HEREDITARY DEFICIENCY OF OTHER CLOTTING FACTORS 01/30/[address] active 6 HYPERLIPIDEMIA, UNSPECIFIED 01/30/[address] active 7 OTHER CHOLANGITIS 01/30/[address] active 8 TYPE 2 DIABETES MELLITUS WITHOUT COMPLICATIONS 01/30/[address] active 9 UNSPECIFIED ATRIAL FIBRILLATION 01/30/[address] active Reason for Referral No Reasons for Referral Entered Social History Social History Observation Description Start Date End Date Code Code System Current Smoking Status Tobacco smoking consumption unknown 182868201 SNOMED CT Sex Assigned At Female 1945 [address]-3 [facility] Vital Signs Code Code System Vitals Name Values and Units Timing Information 9279-1 [facility] Respiratory Rate Value=18.0 Units=/m in 02/07/2023 8310-5 [facility] Body Temperature Value=97.2 Units=?? F 02/07/2023 8462-4 [facility] Blood Pressure-Diastolic Value=80 Un its=mmHg 02/07/2023 8480-6 [facility] Blood Pressure-Systolic Wfdfh=483 Un its=mmHg 02/07/2023 8867-4 [facility] Heart rate Value=80.0 Units=/min 86506-5 [facility] Pain Level Value=0.0 02/07/2023 78142-5 [facility] O2 % BldC Oximetry Value=96.0 Units= % 02/06/2023 65057-7 [facility] Weight Jqpsa=566.5 Units=Lbs 03/2023 2339-0 [facility] Blood Sugar Rkzun=365.0 Units=mg/dL 02/02/2023 8302-2 [facility] Height Value=64.0 Units=Inches 01/31/2023
== END 2024-07-06 09:43 | disposition home or self-care (01) ==
LOC: HO.ACS 09:12
PROVIDERS: PCP Internal Medicine; Visit Provider Internal Medicine
DX: Z79.01 Long term (current) use of anticoagulants (principal)

== ENCOUNTER → 2024-07-06 09:12 | Outpatient (BNVA) | payer MEDICARE, OTHER, SELFPAY | PROVIDERS: PCP Internal Medicine; Visit Provider Internal Medicine | DX: Z86.718 Personal history of other venous thrombosis and embolism (principal); Z79.01 Long term (current) use of anticoagulants; Z51.81 Encounter for therapeutic drug level monitoring | CPT/HCPCS: 85610; 99211 ==

== ENCOUNTER 2024-07-13 13:02 | Outpatient (AMB) | payer MEDICARE, OTHER, SELFPAY ==
[2024-07-13 13:40] LABS: Prothrombin Time Whole Bld POC 33.9 sec (11.1-13.5); ~PT, ~INR - Anti Coag Clinic 2.8 (0.9-1.1)
--- NOTE | 2024-07-13 13:44 | MHC.OFFVISCO ---
Intake Intake Visit Reasons: Anticoagulation Allergies shrimp [SHRIMP] Allergy (Mild, Verified 07/13/24 13:33) HIVES No Known Drug Allergies Allergy (Unknown, Verified 07/13/24 13:33) Unknown Medication List - Last Reconciled 07/13/24 by Clover Garrett RN ammonium lactate 12% 1 appl topical BID apple cider vinegar PO BID atorvastatin 40 mg PO DAILY blood sugar diagnostic (Accu-Chek Guide test strips) As directed 2 times per day blood-glucose meter TEST 2 TIMES DAILY blood-glucose meter (Accu-Chek Guide Glucose Meter) As directed cyanocobalamin (vitamin B-12) 1,000 mcg PO DAILY diltiazem HCl CD (Cardizem CD) 120 mg See Protocol PO DAILY esomeprazole magnesium (Nexium) 20 mg PO DAILY furosemide 20 mg PO DAILY glipizide 5 mg PO DAILY guaifenesin ER (Mucinex) 600 mg PO Q12H PRN lancing device ACCU-CHECK DARLINE DEVICE lancing device (Adjustable Lancing Device) As directed lisinopril 20 mg PO DAILY phenytoin sodium extended (Dilantin Extended) 200 mg (2 x 100 mg) PO BID phenytoin sodium extended 200 mg PO BID tizanidine 4 mg PO Q8H PRN warfarin 5 mg See Protocol PO DAILY Nursing Note Amb to ACS feeling ok, sts starting to feel environmental allergy sxs asked about claritan and zyrtec- no warfarin interaction Medications and supplements reviewed No changes in health,medications, or supplements, sts she doesn't have much of an appetite these days Denies any signs and symptoms of bleeding,bruising, or clotting. Bleeding, bruising, clotting discussed INR: 2.8 now in therapeutic range Dose: continue usual 2.5mg x 3 days and 5mg x 4 days balance greens and reds in diet, be consistent, eat a variety of foods F/U INR: 2 weeks Patient verbalizes understanding of instructions given Anti-Coag Initial Assessment Social Hx Patient Tobacco Use Status: Never used Tobacco Tobacco use type: Cigarette alcohol intake: never Alcohol intake frequency: a few times a month Coding Level of Care Code Est Patient Level 1 Diagnoses Current use of anticoagulant therapy Z79.01 Time Spent (min) 15 Assessment & Plan Assessment & Plan (1) Current use of anticoagulant therapy: Code(s): 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
--- OUTSIDE RECORDS SUMMARY | 2024-07-13 15:26 | XMS_ITS ---
Author Organization [facility] on Care Team Providers Care Admissions Advisor Name Role Phone Radha Franklin Unavailable Unavailable iNchelle Cardozo Unavailable Unavailable Marvin Jones Unavailable Unavailable Ravi Clark Unavailable Unavailable Milton, Shelby Unavailable Unavailable Lorenza Friend Unavailable Unavailable Clover Mejia Unavailable Unavailable Celeste Alicea Unavailable Unavailable Allergies and adverse reactions Code CodeSystem Substance Reaction Severity StartDate Concern Status Shrimp Unknown 01/30/2023 active Care Team Name Role Address Phone Organization Dates Ravi Clark PCP [address] [place] [address], [id number], [place] (Office[place] : [facility] 01/30/2023 - 02/07/2023 Radha Franklin Attending Physician [address] [place] [address], [place] (Office): [facility] 01/30/2023 - 02/07/2023 Nichelle Cardozo Attending Physician [address] [place] [address], [id number], [place] (Office): [facility] 01/30/2023 - 02/07/2023 Marvin Jones Attending Physician [address] [place] [address], [address], [place] (Office): [facility] 01/30/2023 - 02/07/2023 Shelby Rose Attending Physician [address] [place] [address], [address], [place] (Office): : [facility] 01/30/2023 - 02/07/2023 Lorenza Friend Attending Physician [address], [address], [place] (Office): : [facility] 01/30/2023 - 02/07/2023 Clover Mejia Attending Physician [address] [facility] [address], [place], [address], [facility] (Office): : [facility] 01/30/2023 - 02/07/2023 Celeste Alicea Attending Physician [address] [place], [address], [place] (Office): [facility] 01/30/2023 - 02/07/2023 Immunizations Immunization Status Vaccine [...] completed Pneumococcal conjugate vaccine 20-valent (PCV20), polysaccharide [id number] conjugate, adjuvant, preservative free lotNumber: [id number] expiry: 03/27/2024 Mfg: [email or web address] Given 0.5 ml Left Deltoid intramuscularly 216 [...] LNP, preservative free, 30 mcg/0.3mL dose Mfg: [employer] 208 CVX created date: 02/02/2023 administer ed date: 03/13/2021 Mental Status Section Date Assessment Total Score Description 02/07/2023 BIMS 15 cognitively int act CAM 0 No delirium ind icated 02/01/2023 BIMS 15 cognitively int act CAM 0 No delirium ind icated Problems Problem # Description Date of onset Resolved Date Code CodeSystem Concern Status 1 ACUTE PANCREATITIS WITHOUT NECROSIS OR INFECTION, UNSPECIFIED 01/30/[address] active 2 BACTEREMIA 01/30/[address] active 3 EPILEPSY, UNSPECIFIED, NOT INTRACTABLE, WITHOUT STATUS EPILEPTICUS 01/30/[address] active 4 ESSENTIAL (PRIMARY) HYPERTENSION 01/30/[address] active 5 HEREDITARY DEFICIENCY OF OTHER CLOTTING FACTORS 01/30/[address] active 6 HYPERLIPIDEMIA, UNSPECIFIED 01/30/[address] active 7 OTHER CHOLANGITIS 01/30/[address] active 8 TYPE 2 DIABETES MELLITUS WITHOUT COMPLICATIONS 01/30/[address] active 9 UNSPECIFIED ATRIAL FIBRILLATION 01/30/[address] active Reason for Referral No Reasons for Referral Entered Social History Social History Observation Description Start Date End Date Code Code System Current Smoking Status Tobacco smoking consumption unknown 354030317 SNOMED CT Sex Assigned At Female 1945 [address]-0 [facility] Vital Signs Code Code System Vitals Name Values and Units Timing Information 9279-1 [facility] Respiratory Rate Value=18.0 Units=/m in 02/07/2023 8310-5 [facility] Body Temperature Value=97.2 Units=?? F 02/07/2023 8462-4 [facility] Blood Pressure-Diastolic Value=80 Un its=mmHg 02/07/2023 8480-6 [facility] Blood Pressure-Systolic Atzsj=824 Un its=mmHg 02/07/2023 8867-4 [facility] Heart rate Value=80.0 Units=/min 08866-0 [facility] Pain Level Value=0.0 02/07/2023 52766-5 [facility] O2 % BldC Oximetry Value=96.0 Units= % 02/06/2023 19941-3 [facility] Weight Vbgzz=029.5 Units=Lbs 03/2023 2339-0 [facility] Blood Sugar Zwwps=939.0 Units=mg/dL 02/02/2023 8302-2 [facility] Height Value=64.0 Units=Inches 01/31/2023
--- OUTSIDE RECORDS SUMMARY | 2024-07-13 15:26 | XMS_ITS | Clinical Summary ---
Author Organization [facility] Address [address] [place] [address] Care Team Providers Care Tandem Mill Sticker Name Role Phone Unavailable Primary Care Provider Unavailabl e Encounters Date Type Department Care Team Description 05/31/2024 [facility] Neurodiagnostic [address] [place] [phone] Syd Gastelum MD Epilepsy, unspecified, not intractable, without status epilepticus (CMS/HCC) 05/30/2024 [facility] Neurodiagnostic [address] [place] [phone] Syd Gastelum MD Epilepsy, unspecified, not intractable, without status epilepticus (CMS/HCC) 05/27/2024 [facility]diagnostic [address] [place] [phone] Syd Gastelum MD Epilepsy, unspecified, not intractable, [...]
--- OUTSIDE RECORDS SUMMARY | 2024-07-13 15:26 | XMS_ITS | Data Portability ---
Author Organization [place] - [facility] With [facility] Address [address] [place] [address] Assessment No assessment recorded. Plan of Treatment [...] ) ALT 42 U/L 30-65 Not Available [address], [address], 06/26/2008 02:36:06 11/29/1911/28/2005 hemog lobin A1C w/ mpg hemoglobin A1C 5.6 % 4.8-6. 0 goal: <7% in patie nts with diabe ernestine Not Available [address], [address], 06/26/2008 02:36:06 11/29/1911/28/2005 lipid panel cholesterol 245 mg/dL <200 mg/dL naz eable 200-2 39 mg/dL borde rline high >240 mg/dL high Not Available [address], [address], 06/26/2008 02:36:06 11/29/1911/28/2005 lipid panel triglyceride s 216 mg/dL <150 mg/dL helene l 150-1 99 mg/dL borde rline high 200-4 99 mg/dL high >500 mg/dL very high Not Available [address], [address], 06/26/2008 02:36:06 11/29/1911/28/2005 lipid panel direct HDL 62 mg/dL <40 mg/dL - major risk for CHD >60 mg/dL - negat danyell risk for CHD Not Available [address], [address], 06/26/2008 02:36:06 11/29/1911/28/2005 lipid panel direct LDL [...] r IS not necvinod faby. Not Available [address], [address], 06/26/2008 02:36:06 12/02/19 06 12/01/2005 mendez jha n time PT 41.1 secon ds 9.0-10 .4 high Not Available [address], [address], 06/26/2008 03:22:12 12/02/19 06 12/01/2005 proth radhabi n time INR 4.1 0.9-1. 1 high sugge sted value of 2.0-3 .0 for proph ylaxi s of venou s thomb osis, and preve ntion of embol ism. sugge sted value of 2.5-3 .5 for preve ntion of recur rent embol ism or patie nts with mecha nical prost hetic heart valve s. Not Available [address], [address], 06/26/2008 03:22:12 12/16/19 06 12/15/2005 proth rombi n time PT 23.6 secon ds 9.0-10 .4 high Not Available [address], [address], 06/26/2008 03:41:29 12/16/19 06 12/15/2005 proth rombi n time INR 2.4 0.9-1. 1 high sugge sted value of 2.0-3 .0 for proph ylaxi s of venou s thomb osis, and preve ntion of embol ism. sugge sted value of 2.5-3 .5 for preve ntion of recur rent embol ism or patie nts with mecha nical prost hetic heart valve s. Not Available [address], [address], 06/26/2008 03:41:29 12/20/19 06 12/19/2005 proth rombi n time PT 23.3 secon ds 9.0-10 .4 high Not Available [address], [address], 06/26/2008 03:27:20 12/20/19 06 12/19/2005 proth rombi n time INR 2.4 0.9-1. 1 high sugge sted value of 2.0-3 .0 for proph ylaxi s of venou s thomb osis, and preve ntion of embol ism. sugge sted value of 2.5-3 .5 for preve ntion of recur rent embol ism or patie nts with mecha nical prost hetic heart valve s. Not Available [address], [address], 06/26/2008 03:27:20 Result Notes None recorded. 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 2005 Not Available [facility] 3 03:12:20 Benign essential hypertensi on 0811158 Active 2003 Not Available [facility] 3 03:12:20 Atrial fibrillati on 78453554 Active 2004 Not Available [facility] 3 03:12:20 Phlebitis of the femoral vein 657649779 Active 2003 Not Available [facility] 3 03:12:20 Major depression , melancholi c type 894315849 Active 2005 Not Available [facility] 3 03:12:20 Common cold 81944041 Completed 200403/16/2013 Not Available [facility] 3 02:00:29 Hand joint pain 970109610 Completed 200403/16/2013 Not Available [facility] 3 02:02:43 Edema of extremity 734016621 Completed 200303/16/2013 Not Available [facility] 3 02:02:55 On examinatio n - a rash Completed 200403/16/2013 Not Available [facility] 3 02:00:49 Seizure 34920148 Active 2004 Not Available [facility] 3 03:12:20 Type 2 diabetes mellitus without complicati on 766455950 Active 2003 Not Available [facility] 3 03:12:20 Acute maxillary sinusitis 53180169 Completed 200403/16/2013 Not Available [facility] 3 02:01:43 Abnormal weight gain 080268172 Active 2003 Not Available [facility] 3 03:12:20 Generalize d abdominal pain 996810796 Completed 200303/16/2013 Not Available [facility] 3 02:02:06 Hyperlipid emia 14149866 Active 2004 Not Available [facility] 3 03:12:20 Dysuria 52099192 Completed 200303/16/2013 Not Available [facility] 3 02:02:00 Peripheral venous insufficie ncy 33621581 Active 2003 Not Available [facility] 3 03:12:20 Hypothyroi dism 15099468 Active 2004 Not Available [facility] 3 03:12:20 Streptococ samm sore throat 02137234 Completed 200303/16/2013 Not Available [facility] 3 02:02:03 Acute bronchitis 16623892 Completed 200403/16/2013 Not Available [facility] 3 02:01:37 Problem Notes None recorded. Medical [...] influenza, unspecified formulation 4 completed Not Available [facility] 03/12/2011 05:21:07 influenza, unspecified formulation 4 completed Not Available [facility] 03/12/2011 05:21:07 influenza, unspecified formulation 5 completed Not Available [facility] 03/12/2011 05:21:29 influenza, unspecified formulation 5 completed Not Available [facility] 03/12/2011 05:21:29 Past Encounters Encounter ID Performer Location Encounter Start Date Encounter Closed Date Diagnosis/Indication Diagnosis SNOMED-CT Code Diagnosis ICD10 Code Diagnosis Note [id number] , [facility], OFFICE [address] [place] [address] 11/16/2003 12:14:30 11/22/2003 09:27:14 [id number] [facility] [place], [place] [address] 12/22/2003 09:56:38 12/25/2003 15:40:32 [id number] [facility], OFFICE [address] [place] [address] 01/19/2004 09:54:48 01/22/2004 08:56:58 [id number] [facility], OFFICE [address] [place] [address] 02/02/2004 09:07:12 02/02/2004 12:21:32 [id number] [facility] [address] [place] [address] 02/02/2004 07:26:36 02/02/2004 09:21:04 [id number] [facility], [address]ICE [address] [place] [address] 03/07/2004 08:50:31 03/07/2004 17:12:49 [id number] [facility] [place], [place] [address] 04/05/2004 09:48:00 04/09/2004 08:47:39 [id number] FP [facility], OFF[address] [place] [address] 04/15/2004 15:03:12 04/15/2004 17:36:23 [id number] [facility], [place] [address] [place] [address] 04/12/2004 10:53:34 05/17/2008 02:02:29 [id number] FP [facility], OFFICE [address] TNODan[place] [id number] 04/22/2004 14:57:11 04/23/2004 09:26:19 [id number] FP [facility], OFF[address] JASSOMAXIMDanilo [place] [address] 05/03/2004 10:24:03 05/06/2004 08:51:52 [id number] [facility], OFF[address] JASSOMAXIMDanilo [place] [address] 05/20/2004 10:47:03 05/21/2004 08:35:20 [id number] FP [facility], OFF[address] JASSOMAXIMDanilo [place] [address] 05/24/2004 11:19:37 05/27/2004 09:14:32 [id number] [facility], OFFICE [address] [place] [address] 05/27/2004 09:35:41 05/28/2004 09:13:28 [id number] [facility], OFFICE [address] [place] [address] 06/04/2004 08:58:14 06/04/2004 17:23:42 [id number] [facility], OFFICE [address] [place] [address] 06/18/2004 10:00:16 06/18/2004 16:52:29 [id number] [facility] [address] [place] [address] 06/18/2004 07:34:32 06/18/2004 09:59:04 [id number] [facility], OFFICE [address] [place] [address] 06/27/2004 11:46:29 06/28/2004 09:09:13 [id number] [facility] [place], [place] [address] 08/14/2004 11:47:27 08/15/2004 08:54:14 [id number] [facility] [place], [place] [address] 09/19/2004 16:03:15 09/20/2004 16:06:43 [id number] [facility] [place], [place] [address] 10/17/2004 08:40:42 10/17/2004 15:32:26 [id number] [facility] [address] [place] [address] 10/17/2004 07:29:38 10/17/2004 09:02:48 [id number] [facility] [address] 10/25/2004 10:49:52 11/01/2004 08:36:26 [id number] [facility] [place], [place] [address] 11/19/2004 09:04:39 11/20/2004 08:14:19 [id number] [facility], OFFICE [address] [place] [address] [place] [address] 11/26/2004 08:55:17 11/26/2004 16:24:15 [id number] [facility], OFFICE [address] [place] [address] 12/03/2004 09:11:25 12/04/2004 14:38:40 [id number] [facility] , [facility] [address] [place] [address] 12/05/2004 10:50:31 12/05/2004 11:29:40 [id number] [facility], OFFICE [address] [place] [address] 12/20/2004 08:19:23 12/20/2004 15:41:51 [id number] [facility] [address] [place] [id number] 12/20/2004 07:34:27 12/20/2004 08:05:52 [id number] [facility], OFFICE [address] [place] [address] 12/27/2004 09:49:39 12/27/2004 15:08:31 [id number] [facility], OFFICE [address] [place] [address] 12/31/2004 11:01:20 01/02/2005 10:36:32 [id number] [facility], OFFICE [address] [place] [address] 01/08/2005 10:14:21 01/08/2005 15:13:20 [id number] [facility], OFFICE [address] [place] [address] 01/16/2005 10:11:30 01/16/2005 15:05:45 [id number] [facility], OFFICE [address] [place] [address] 01/30/2005 10:31:42 01/30/2005 14:44:48 [id number] [facility], OFFICE [address] [place] [address] 02/18/2005 15:03:31 02/18/2005 17:29:51 [id number] [facility], OFFICE [address] [place] [address] 03/05/2005 14:53:36 03/05/2005 17:29:44 [id number] [facility], OFFICE [address] [place] [address] 03/06/2005 11:53:52 03/06/2005 15:47:59 [id number] [facility] [address] [place] [address] 03/05/2005 15:26:52 03/05/2005 15:27:17 [id number] [facility], OFFICE [address] [place] [address] 03/18/2005 16:33:44 03/19/2005 08:28:27 [id number] [facility], OFFICE [address] [place] [address] 03/26/2005 14:01:26 03/26/2005 16:56:44 [id number] [facility], OFFICE [address] [place] [address] 04/25/2005 15:06:42 04/29/2005 10:24:01 [id number] [facility], OFFICE [address] [place] [address] 04/02/2005 13:33:35 04/02/2005 14:27:[id number] [place] [address] 05/15/2005 13:10:28 05/15/2005 13:11:25 [id number] [facility] [address] [place] [address] 06/02/2005 08:59:09 06/02/2005 09:00:10 [id number] [facility], OFFICE [address] [place] [address] 06/09/2005 09:48:13 06/09/2005 17:49:27 [id number] [facility] [address] [place] [id number] 06/30/2005 07:39:14 06/30/2005 10:47:09 [id number] [place] [address] [place] [address] 07/15/2005 07:35:21 07/15/2005 10:38:06 [id number] [facility] [address] [place] [address] 08/05/2005 07:38:24 08/05/2005 10:34:53 [id number] [facility], OFFICE [address] [place] [address] 08/08/2005 11:53:47 08/08/2005 14:52:47 [id number] [facility], OFFICE [address] [place] [address] 08/11/2005 10:19:48 08/11/2005 15:05:14 [id number] [facility], OFFICE [address] [place] [address] 08/18/2005 10:57:06 08/18/2005 15:15:34 [id number] [facility], OFFICE [address] [place] [address] 08/25/2005 11:48:03 08/25/2005 17:40:40 [id number] [facility], OFFICE [address] [place] [address] 09/17/2005 11:31:19 09/17/2005 15:17:53 [id number] FP [facility], OFFICE [address] [place] [address] 10/09/2005 16:05:18 10/10/2005 16:24:20 [id number] [facility], OFFICE [address] [place] [address] 10/20/2005 09:54:51 10/20/2005 17:30:28 [id number] [facility], OFFICE [address] [place] [address] 11/17/2005 10:54:13 11/17/2005 17:50:24 [id number] [facility] [address] [place] [address] 11/28/2005 07:30:03 11/28/2005 08:43:26 [id number] [facility], OFFICE [address] [place] [address] 12/01/2005 10:50:57 05/17/2008 02:02:29 [id number] LAB - [facility] [address] [place] [address] 12/01/2005 11:06:46 12/01/2005 11:07:08 [id number] FP [facility] OFFICE [address] [place] [address] 12/02/2005 09:40:49 12/02/2005 12:24:54 [id number] FP [facility], OFFICE [address] [place] [address] 12/05/2005 10:52:16 12/08/2005 09:32:36 [id number] FP [facility], OFFICE [address] [place] [address] 12/10/2005 14:20:32 12/10/2005 17:21:31 [id number] [facility], OFFICE [address] [place] [address] 12/12/2005 10:12:02 12/12/2005 13:55:19 [id number] [facility] [address] [place] [address] 12/15/2005 07:56:58 12/15/2005 10:52:40 [id number] [facility] [address] [place] [address] 1 12/19/2005 09:58:38 12/19/2005 09:58:49 Health Concerns Section Related Observation LastModified by Organization Detai ls LastModified Time None Recorded Concern Status LastModified by Organization Details LastModified Time None Recorded Advance Directives Directive None Recorded Payers Encounter Date Sequence Insurance Name Policy Number Policy Arce Covered Member ID Arce Member ID Guarantor Name 12/05/2005 1 MEDICARE B: [employer] MEDICARE [facility] [id number] 1 12/10/2005 1 MEDICARE B: [employer] MEDICARE [facility] [id number] 12/12/2005 1 MEDICARE B: [employer] MEDICARE [facility] [id number] 12/15/2005 1 MEDICARE B: [employer] MEDICARE [facility] [id number] 12/19/2005 1 MEDICARE B: [employer] MEDICARE [facility] [id number] OBGyn Episode No OBEpisode recorded.
--- OUTSIDE RECORDS SUMMARY | 2024-07-13 15:26 | XMS_ITS ---
Author Organization [facility] Care Team Providers Care Boiler Shop Supervisor Name Role Phone Que [place]en[place] Unavailable Unavailable Waleska Johnson Unavailable Unavailable Toney Ocampo Unavailable Unavailable Allergies and adverse reactions Code CodeSystem Substance Reaction Severity StartDate Concern Status Shrimp Morbilliform er uption (code- 954777470, SNOMED CT) Moderate 01/16/2020 active Care Team Name Role Address Phone Organization Dates Que Davenport Attending Physician [facility], [place], [address], [place] (Office): : : [facility] 04/30/2023 - 05/11/2023 Waleska Johnson Attending Physician [address], [place], [address], [facility] (Office): : [facility] 04/30/2023 - 05/11/2023 Toney Ocampo Attending Physician [address], [place], [address], [place] (Office): : : [facility] 04/30/2023 - 05/11/2023 Immunizations Immunization Status Vaccine Details Vaccine Code CodeSystem Date Notes TB 1 Step Mantoux (PPD) completed tuberculin skin test; purified protein derivative solution, intradermal lotNumber: [id number] expiry: 05/28/2024 Mfg: [employer] Given 0.1 ml Left Forearm intradermally 96 CVX created date: 05/02/2023 consent date: 05/01/2023 administere d date: 05/01/2023 TB 2 Step Mantoux Skin Test completed tuberculin skin test; purified protein derivative solution, intradermal lotNumber: [id number] expiry: 05/28/2024 Mfg: [employer] Given 0.1 [...] Influenza (standard dose syringe) completed Influenza, Madin [place]msted Canine Kidney, subunit, quadrivalent, injectable, preservative free Given intradermally 171 CVX created date: 01/24/2020 administere d date: 01/10/2020 PCV (Prevnar) 20 cancelled Pneumococcal conjugate vaccine 20-valent (PCV20), polysaccharide [id number] conjugate, adjuvant, preservative free 216 CVX created date: 05/06/2023 consent date: 05/06/2023 influenza-Afluria Standard 0.5ml Prefilled ([id number]) cancelled Influenza, split virus, quadrivalent, injectable, preservative free 150 CVX created date: 05/06/2023 consent date: 05/06/2023 Comirnaty ([employer]) COVID19 [id number] cancelled SARS-COV-2 (COVID-19) vaccine, mRNA, spike protein, [...] Status 1 ACTIVATED PROTEIN C RESISTANCE 04/30/[address] active 2 MORBID (SEVERE) OBESITY DUE TO EXCESS CALORIES 04/30/[address] active 3 MULTIPLE FRACTURES OF RIBS, LEFT SIDE, SUBSEQUENT ENCOUNTER FOR FRACTURE WITH ROUTINE HEALING 04/30/[address] active 4 OTHER SPECIFIED POSTPROCEDURAL STATES 04/30/[address] active 5 UNSPECIFIED FALL, SUBSEQUENT ENCOUNTER 04/30/[address] active 6 UNSTEADINESS ON FEET 04/30/[address] active 7 CONTUSION OF LEFT KNEE, SUBSEQUENT ENCOUNTER 01/16/2001/26/[address] completed 8 ESSENTIAL (PRIMARY) HYPERTENSION 01/16/[address] active 9 HYPERLIPIDEMIA, UNSPECIFIED 01/16/[address] active 10 PAIN IN LEFT KNEE 01/16/2001/26/[address] completed 11 PERSONAL HISTORY OF OTHER VENOUS THROMBOSIS AND EMBOLISM 01/16/[address] active 12 TYPE 2 DIABETES MELLITUS WITHOUT COMPLICATIONS 01/16/[address] active 13 UNSTEADINESS ON FEET 01/16/2001/26/[address] completed 14 WEAKNESS 01/16/2001/26/[address] completed Reason for Referral No Reasons for Referral Entered Social History Social History Observation Description Start Date End Date Code Code System Current Smoking Status Tobacco smoking consumption unknown [id number] SNOMED CT Sex Assigned At Female 1945 30558-0 [facility] Vital Signs Code Code System Vitals Name Values and Units Timing Information 00692-4 [facility] Pain Level Value=0.0 05/11/2023 51422-3 [facility] Weight Cwdgr=559.8 Units=Lbs 9279-1 [facility] Respiratory Rate Value=16.0 Units=/m in 05/10/2023 8462-4 [facility] Blood Pressure-Diastolic Value=72 Un its=mmHg 05/10/2023 8480-6 [facility] Blood Pressure-Systolic Eqtvk=737 Un its=mmHg 05/10/2023 8310-5 [facility] Body Temperature Value=97.1 Units=?? F 05/10/2023 8867-4 [facility] Heart rate Value=80.0 Units=/min 17312-5 [facility] O2 % BldC Oximetry Value=95.0 Units= % 05/10/2023 2339-0 [facility] Blood Sugar Dnjla=333.0 Units=mg/dL 05/03/2023 8302-2 [facility] Height Value=61.6 Units=Inches 05/01/2023
== END 2024-07-13 15:44 | disposition home or self-care (01) ==
LOC: HO.ACS 13:02
PROVIDERS: PCP Internal Medicine; Visit Provider Internal Medicine Medical Oncology
DX: Z79.01 Long term (current) use of anticoagulants (principal)

== ENCOUNTER → 2024-07-13 13:02 | Outpatient (BNVA) | payer MEDICARE, OTHER, SELFPAY | PROVIDERS: PCP Internal Medicine; Visit Provider Internal Medicine Medical Oncology | DX: Z86.718 Personal history of other venous thrombosis and embolism (principal); Z79.01 Long term (current) use of anticoagulants; Z51.81 Encounter for therapeutic drug level monitoring | CPT/HCPCS: 85610; 99211 ==

== ENCOUNTER 2024-07-18 11:39 | Outpatient (REF) | payer MEDICARE, MEDICAID, SELFPAY ==
[2024-07-18 12:07] LABS: MANUAL DIFF FLAG NO
[2024-07-18 12:28] LABS: Basophils Percent Auto 0.2 % (0-2); Eosinophils Absolute Auto 0.1 X10*3/uL (0.0-0.4); Eosinophils Percent Auto 1.6 % (0-4); Hematocrit 41.1 % (37.0-47.0); Hemoglobin 13.3 g/dl (12.0-16.0); Imm Gran Abs Auto 0.02 X10*3/uL (0.00-0.03); Imm Gran Pct Auto 0.4 % (0.0-0.4); Lymphocytes Absolute Auto 1.1 X10*3/uL (1.2-4.9); Lymphocytes Percent Auto 22.3 % (20-40); Mean Corpuscular HGB Conc 32.4 g/dl (31.0-35.0); Mean Corpuscular Hemoglobin 33.3 pg (27.0-33.0); Mean Platelet Volume 9.7 fL (9.4-12.3); Monocytes Absolute Auto 0.3 X10*3/uL (0.1-1.2); Monocytes Percent Auto 5.4 % (2-11); Neutrophils Absolute Auto 3.4 x10*3/uL (2.0-8.3); Neutrophils Percent Auto 70.1 % (45-73); Platelet Count 160 X10*3/uL (160-400); Red Blood Count 3.99 X10*6/uL (4.20-5.50); Red Cell Distribution Width 12.9 % (11.0-16.0); White Blood Count 4.9 X10*3/uL (4.8-10.8)
[2024-07-18 12:35] LABS: Estimated Average Glucose 114 mg/dL; Hemoglobin A1c % 5.6 % (<6.0)
[2024-07-18 12:45] LABS: Influenza A PCR NEGATIVE (Negative); Influenza B PCR NEGATIVE (Negative); Resp Syncy Virus RNA Qual PCR NEGATIVE (Negative); SARS COV2 PCR INHOUSE NEGATIVE (Negative)
[2024-07-18 13:00] LABS: Alanine Aminotransferase 24 U/L (0-31); Albumin Level 3.5 g/dL (3.5-5.0); Alkaline Phosphatase 80 U/L (39-117); Anion Gap 9 (12-20); Aspartate Amino Transferase 16 U/L (5-31); Bilirubin Total 0.4 mg/dL (0.0-1.0); Blood Urea Nitrogen 16 mg/dL (9-16); Carbon Dioxide 31 mmol/L (22-29); Chloride 109 mmol/L (96-108); Cholesterol 183 mg/dL (<200); Estimated Glomerular Filt Rate > 60; Glucose Fasting 112 mg/dL (60-99); HDL Cholesterol 56 mg/dL (>40); LDL Cholesterol Calculated 108 mg/dL (<100); Potassium 4.4 mmol/L (3.3-5.1); Sodium 145 mmol/L (135-145); Total Protein 6.4 g/dL (6.5-8.0); Triglycerides 98 mg/dL (<150)
[2024-07-18 13:10] LABS: Vitamin D 25-OH Total 40.6 ng/mL (>30)
[2024-07-18 13:28] LABS: Microalbum/Creatinine Ratio Ur 9.6 ug/mg cr (<30)
[2024-07-18 13:37] LABS: Appearance Urine Turbid; Color Urine Yellow; Glucose Urine UA Negative (Negative); Leukocyte Esterase Urine Moderate (2+) (Negative); Nitrite Urine Negative (Negative); Specific Gravity - Urine 1.015 (1.005-1.025); UMIC TRIGGER UACC YES; Urine Blood Trace (Negative); Urine Ketones Negative (Negative); Urine Protein Negative (Neg-Trace)
[2024-07-18 14:01] LABS: Bacteria Urine 4+ (None Seen); Hyaline Casts Urine 0-2 /LPF (0-2); Squamous Epithelial Cell Urine >20 /HPF (0-2); UACC Culture Trigger YES
== END 2024-07-18 11:40 | disposition home or self-care (01) ==
LOC: HO.LAB 11:39
PROVIDERS: Internal Medicine; PCP Internal Medicine; Visit Provider Internal Medicine
DX: R56.9 Unspecified convulsions (principal); I10 Essential (primary) hypertension; R31.9 Hematuria, unspecified; D68.2 Hereditary deficiency of other clotting factors; E78.5 Hyperlipidemia, unspecified; E55.9 Vitamin D deficiency, unspecified; R80.9 Proteinuria, unspecified; D64.9 Anemia, unspecified; E53.8 Deficiency of other specified B group vitamins; I48.91 Unspecified atrial fibrillation; E11.65 Type 2 diabetes mellitus with hyperglycemia; R09.89 Other specified symptoms and signs involving the circulatory and respiratory systems; Z79.01 Long term (current) use of anticoagulants; Z79.899 Other long term (current) drug therapy; Z13.0 Encounter for screening for diseases of the blood and blood-forming organs and certain disorders involving the immune mechanism; Z13.220 Encounter for screening for lipoid disorders
CPT/HCPCS: 0241U; 36415; 80053; 80061; 81001; 81003; 82043; 82306; 82570; 83036; 85025; 87086; 96127; 99212

== ENCOUNTER 2024-07-18 14:52 | Outpatient (AMB) | payer MEDICARE, MEDICAID, SELFPAY ==
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
[2024-07-18 15:01] VITALS: BP 136/80; BMI 40.4
== END 2024-07-18 15:35 | disposition home or self-care (01) ==
LOC: HO.HMCH 14:52
PROVIDERS: PCP Internal Medicine; Visit Provider Internal Medicine
DX: E11.69 Type 2 diabetes mellitus with other specified complication (principal); R56.9 Unspecified convulsions; D68.2 Hereditary deficiency of other clotting factors; R31.9 Hematuria, unspecified; I10 Essential (primary) hypertension; Z79.01 Long term (current) use of anticoagulants; E78.5 Hyperlipidemia, unspecified

== ENCOUNTER 2024-07-27 09:07 | Outpatient (AMB) | payer MEDICARE, SELFPAY ==
[2024-07-27 09:26] LABS: Prothrombin Time Whole Bld POC 14.9 sec (11.1-13.5); ~PT, ~INR - Anti Coag Clinic 1.2 (0.9-1.1)
--- NOTE | 2024-07-27 09:27 | MHC.OFFVISCO ---
Intake Intake Visit Reasons: Anticoagulation Allergies shrimp [SHRIMP] Allergy (Mild, Verified 07/27/24 09:15) HIVES diltiazem Adverse Reaction (Severe, Uncoded 07/27/24 09:15) feet pain, swelling Medication List - Last Reconciled 07/27/24 by Bhakti Baez RN ammonium lactate 12% 1 appl topical BID amoxicillin 500 mg PO BID 7 days apple cider vinegar PO BID atorvastatin 40 mg PO DAILY blood sugar diagnostic (Accu-Chek Guide test strips) As directed 2 times per day blood-glucose meter TEST 2 TIMES DAILY blood-glucose meter (Accu-Chek Guide Glucose Meter) As directed cyanocobalamin (vitamin B-12) 1,000 mcg PO DAILY esomeprazole magnesium (Nexium) 20 mg PO DAILY furosemide 20 mg PO DAILY glipizide 5 mg PO DAILY lancing device ACCU-CHECK DARLINE DEVICE lancing device (Adjustable Lancing Device) As directed lisinopril 40 mg PO DAILY 90 days phenytoin sodium extended 200 mg PO BID tizanidine 4 mg PO Q8H PRN warfarin 5 mg See Protocol PO DAILY Nursing Note INR 1.2-? out of therapeutic range of 2-3 Medications and supplements reviewed- pt states diltiazem d/c - lisinopril increased to 40mg daily, also taking amlodipine for BP,has one day of amox antibiotics left for URI pt denies missed dose, states took half tab warfarin yesterday Patient status: pt states going for renal u/s due to microscopic hematuria per pcp Medications or supplements: lisinopril increased to 40mg daily, Diet: dieting Denies any signs and symptoms of bleeding or clotting or unusual bruising Bleeding, bruising, clotting discussed -aware risk of clotting Nutritional guidance given: no greens , eat reds to raise Dose: 7.5mg today and tomm F/U INR Date : thursday07/29/24? Patient verbalizing understanding of instructions given. pcp Dr Patton office called with low inr, dosing and f/u appt. 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
--- OUTSIDE RECORDS SUMMARY | 2024-07-27 09:59 | XMS_ITS | Clinical Summary ---
Author [facility] Address [address] [place] [address] Care Team Providers Care Software Configuration Manager Name Role Phone Unavailable Primary Care Provider Unavailabl e Encounters Date Type Department Care Team Description 05/31/2024 [facility] [address] [place] [address] [phone] Syd Gastelum MD Epilepsy, unspecified, not intractable, without status epilepticus (CMS/HCC) 05/30/2024 [facility] [address] [place] [address] [phone] Syd Gastelum MD Epilepsy, unspecified, not intractable, without status epilepticus (CMS/HCC) 05/27/2024 [facility] [address] [place] [phone] Syd Gastelum MD Epilepsy, unspecified, not intractable, [...] Vaccines (1 of 2) 1996 RSV Immunization Adult Patie nts (1 - 1-dose 75+ series) 2021 COVID-19 [...]
--- OUTSIDE RECORDS SUMMARY | 2024-07-27 09:59 | XMS_ITS | Data Portability ---
Author Organization [place] [facility], , [facility] Address [address] [place] [address] Assessment No assessment recorded. Plan of Treatment [...] ) ALT 42 U/L 30-65 Not Available [address], [address], 06/26/2008 02:36:06 11/29/1911/28/2005 hemog lobin A1C w/ mpg hemoglobin A1C 5.6 % 4.8-6. 0 goal: <7% in patie nts with diabe ernestine Not Available [address], [address], 06/26/2008 02:36:06 11/29/1911/28/2005 lipid panel cholesterol 245 mg/dL <200 mg/dL naz eable 200-2 39 mg/dL borde rline high >240 mg/dL high Not Available [address], [address], 06/26/2008 02:36:06 11/29/1911/28/2005 lipid panel triglyceride s 216 mg/dL <150 mg/dL helene l 150-1 99 mg/dL borde rline high 200-4 99 mg/dL high >500 mg/dL very high Not Available [address], [address], 06/26/2008 02:36:06 11/29/1911/28/2005 lipid panel direct HDL 62 mg/dL <40 mg/dL - major risk for CHD >60 mg/dL - negat danyell risk for CHD Not Available [address], [address], 06/26/2008 02:36:06 11/29/1911/28/2005 lipid panel direct LDL [...] r IS not necvinod faby. Not Available [address], [address], 06/26/2008 02:36:06 12/02/19 06 12/01/2005 mendez jha n time PT 41.1 secon ds 9.0-10 .4 high Not Available [address], [address], 06/26/2008 03:22:12 12/02/19 06 12/01/2005 proth radhabi n time INR 4.1 0.9-1. 1 high sugge sted value of 2.0-3 .0 for proph ylaxi s of venou s thomb osis, and preve ntion of embol ism. sugge sted value of 2.5-3 .5 for preve ntion of recur rent embol ism or patie nts with mecha nical prost hetic heart valve s. Not Available [address], [address], 06/26/2008 03:22:12 12/16/19 06 12/15/2005 proth rombi n time PT 23.6 secon ds 9.0-10 .4 high Not Available [address], [address], 06/26/2008 03:41:29 12/16/19 06 12/15/2005 proth rombi n time INR 2.4 0.9-1. 1 high sugge sted value of 2.0-3 .0 for proph ylaxi s of venou s thomb osis, and preve ntion of embol ism. sugge sted value of 2.5-3 .5 for preve ntion of recur rent embol ism or patie nts with mecha nical prost hetic heart valve s. Not Available [address], [address], 06/26/2008 03:41:29 12/20/19 06 12/19/2005 proth rombi n time PT 23.3 secon ds 9.0-10 .4 high Not Available [address], [address], 06/26/2008 03:27:20 12/20/19 06 12/19/2005 proth rombi n time INR 2.4 0.9-1. 1 high sugge sted value of 2.0-3 .0 for proph ylaxi s of venou s thomb osis, and preve ntion of embol ism. sugge sted value of 2.5-3 .5 for preve ntion of recur rent embol ism or patie nts with mecha nical prost hetic heart valve s. Not Available [address], [address], 06/26/2008 03:27:20 Result Notes None recorded. 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 Active 2005 Not Available [facility] 3 03:12:20 Benign essential hypertensi on 6497983 Active 2003 Not Available [facility] 3 03:12:20 Atrial fibrillati on 24822188 Active 2004 Not Available [facility] 3 03:12:20 Phlebitis of the femoral vein 379456652 Active 2003 Not Available [facility] 3 03:12:20 Major depression , melancholi c type 768585891 Active 2005 Not Available [facility] 3 03:12:20 Common cold 39313299 Completed 200403/16/2013 Not Available [facility] 3 02:00:29 Hand joint pain 757412746 Completed 200403/16/2013 Not Available [facility] 3 02:02:43 Edema of extremity 296654911 Completed 200303/16/2013 Not Available [facility] 3 02:02:55 On examinatio n - a rash Completed 200403/16/2013 Not Available [facility] 3 02:00:49 Seizure 32038312 Active 2004 Not Available [facility] 3 03:12:20 Type 2 diabetes mellitus without complicati on 628714528 Active 2003 Not Available [facility] 3 03:12:20 Acute maxillary sinusitis 59695227 Completed 200403/16/2013 Not Available [facility] 3 02:01:43 Abnormal weight gain 300637249 Active 2003 Not Available [facility] 3 03:12:20 Generalize d abdominal pain 797053501 Completed 200303/16/2013 Not Available [facility] 3 02:02:06 Hyperlipid emia 68832365 Active 2004 Not Available [facility] 3 03:12:20 Dysuria 28308774 Completed 200303/16/2013 Not Available [facility] 3 02:02:00 Peripheral venous insufficie ncy 67490159 Active 2003 Not Available [facility] 3 03:12:20 Hypothyroi dism 69161715 Active 2004 Not Available [facility] 3 03:12:20 Streptococ samm sore throat 88000606 Completed 200303/16/2013 Not Available [facility] 3 02:02:03 Acute bronchitis 87348830 Completed 200403/16/2013 Not Available [facility] 3 02:01:37 Problem Notes None recorded. [...] influenza, unspecified formulation 4 completed Not Available [facility] 03/12/2011 05:21:07 influenza, unspecified formulation 4 completed Not Available [facility] 03/12/2011 05:21:07 influenza, unspecified formulation 5 completed Not Available [facility] 03/12/2011 05:21:29 influenza, unspecified formulation 5 completed Not Available [facility] 03/12/2011 05:21:29 Past Encounters Encounter ID Performer Location Encounter Start Date Encounter Closed Date Diagnosis/Indication Diagnosis SNOMED-CT Code Diagnosis ICD10 Code Diagnosis Note [id number] , [facility] [place] [address] [place] [address] 11/16/2003 12:14:30 11/22/2003 09:27:14 [id number] [facility] [place] [address] 12/22/2003 09:56:38 12/25/2003 15:40:32 [id number] [facility] [place] [address] [place] [address] 01/19/2004 09:54:48 01/22/2004 08:56:58 [id number] [facility] [place] [address] [place] [address] 02/02/2004 09:07:12 02/02/2004 12:21:32 [id number] [facility] [place] [address] [place] [address] 02/02/2004 07:26:36 02/02/2004 09:21:04 [id number] [facility] [place] [address] [place] [address] 03/07/2004 08:50:31 03/07/2004 17:12:49 [id number] [facility] [place] [address] 04/05/2004 09:48:00 04/09/2004 08:47:39 [id number] [facility] [place] [address] [place] [id number] 04/15/2004 15:03:12 04/15/2004 17:36:23 [id number] [facility] [place] [address] [place] [id number] 04/12/2004 10:53:34 05/17/2008 02:02:29 [id number] [facility] [place] [address] [place] [id number] 1 04/22/2004 14:57:11 04/23/2004 09:26:19 [id number] [facility] [place] [address] [place] [id number] 05/03/2004 10:24:03 05/06/2004 08:51:52 [id number] [facility] [place] [address] [place] [id number] 05/20/2004 10:47:03 05/21/2004 08:35:20 [id number] [facility] [place] [address] [place] [id number] 05/24/2004 11:19:37 05/27/2004 09:14:32 [id number] [facility] [place] [place] [address] [place] [address] 05/27/2004 09:35:41 05/28/2004 09:13:28 [id number] [facility] [place] [place] [address] [place] [address] 06/04/2004 08:58:14 06/04/2004 17:23:42 [id number] [facility] [place] [place] [address] [place] [address] 06/18/2004 10:00:16 06/18/2004 16:52:29 [id number] [facility] [place] [address] [place] [address] 06/18/2004 07:34:32 06/18/2004 09:59:04 [id number] [facility] [place] [place] [address] [place] [address] 06/27/2004 11:46:29 06/28/2004 09:09:13 [id number] [facility] [place] [address] 08/14/2004 11:47:27 08/15/2004 08:54:14 [id number] [facility] [place] [address] 09/19/2004 16:03:15 09/20/2004 16:06:43 [id number] [facility] [place] [address] 10/17/2004 08:40:42 10/17/2004 15:32:26 [id number] [facility] [place] [address] [place] [address] 10/17/2004 07:29:38 10/17/2004 09:02:48 [id number] [facility] [place] [address] 10/25/2004 10:49:52 11/01/2004 08:36:26 [id number] [facility] [place] [address] 11/19/2004 09:04:39 11/20/2004 08:14:19 [id number] [facility] [place] [place] [address] [place] [address] [place] [address] 11/26/2004 08:55:17 11/26/2004 16:24:15 [id number] [facility] [place] [place] [address] [place] [address] 12/03/2004 09:11:25 12/04/2004 14:38:40 [id number] [facility] , [facility] [place] [address] [place] [id number] 12/05/2004 10:50:31 12/05/2004 11:29:40 [id number] [facility] [place] [address] [place] [address] 12/20/2004 08:19:23 12/20/2004 15:41:51 [id number] [facility] [place] [address] [place] [id number] 12/20/2004 07:34:27 12/20/2004 08:05:52 [id number] [facility] [place] [place] [address] [place] [address] 12/27/2004 09:49:39 12/27/2004 15:08:31 [id number] [facility] [place] [place] [address] [place] [address] 12/31/2004 11:01:20 01/02/2005 10:36:32 [id number] [facility] [place] [place] [address] [place] [address] 01/08/2005 10:14:21 01/08/2005 15:13:20 [id number] [facility] [place] [place] [address] [place] [address] 01/16/2005 10:11:30 01/16/2005 15:05:45 [id number] [facility] [place] [place] [address] [place] [address] 01/30/2005 10:31:42 01/30/2005 14:44:48 [id number] [facility] [place] [place] [address] [place] [id number] 02/18/2005 15:03:31 02/18/2005 17:29:51 [id number] [facility] [place] [place] [address] [place] [address] 1 03/05/2005 14:53:36 03/05/2005 17:29:44 [id number] [facility] [place] [place] [address] [place] [id number] 03/06/2005 11:53:52 03/06/2005 15:47:59 [id number] [facility] [place] [address] [place] [address] 03/05/2005 15:26:52 03/05/2005 15:27:17 [id number] [facility] [place] [place] [address] [place] [id number] 03/18/2005 16:33:44 03/19/2005 08:28:27 [id number] [facility] [place] [place] [address] [place] [id number] 03/26/2005 14:01:26 03/26/2005 16:56:44 [id number] [facility] [place] [place] [address] [place] [id number] 04/25/2005 15:06:42 04/29/2005 10:24:01 [id number] [facility] [place] [place] [address] [place] [address] 04/02/2005 13:33:35 04/02/2005 14:27:[id number] [place] [id number] 1 05/15/2005 13:10:28 05/15/2005 13:11:25 [id number] [facility] [address] [place] [id number] 06/02/2005 08:59:09 06/02/2005 09:00:10 [id number] [facility] [place] [place] [address] [place] [id number] 06/09/2005 09:48:13 06/09/2005 17:49:27 [id number] [facility] [address] [place] [address] 06/30/2005 07:39:14 06/30/2005 10:47:09 [id number] [place] [address] [place] [id number] 07/15/2005 07:35:21 07/15/2005 10:38:06 [id number] [facility] [address] [place] [address] 1 08/05/2005 07:38:24 08/05/2005 10:34:53 [id number] [facility] [place] [place] [address] [place] [address] 08/08/2005 11:53:47 08/08/2005 14:52:47 [id number] [facility] [place] [place] [address] [place] [address] 1 08/11/2005 10:19:48 08/11/2005 15:05:14 [id number] [facility] [place] [place] [address] [place] [address] 08/18/2005 10:57:06 08/18/2005 15:15:34 [id number] [facility] [place] [place] [address] [place] [address] 08/25/2005 11:48:03 08/25/2005 17:40:40 [id number] [facility] [place] [place] [address] [place] [address] 09/17/2005 11:31:19 09/17/2005 15:17:53 [id number] [facility] [place] [place] [address] [place] [address] 10/09/2005 16:05:18 10/10/2005 16:24:20 [id number] [facility] [place] [place] [address] [place] [address] 1 10/20/2005 09:54:51 10/20/2005 17:30:28 [id number] [facility] [place] [place] [address] [place] [address] 11/17/2005 10:54:13 11/17/2005 17:50:24 [id number] [facility] [place] [address] [place] [address] 11/28/2005 07:30:03 11/28/2005 08:43:26 [id number] [facility] [place] [place] [address] [place] [address] 1 12/01/2005 10:50:57 05/17/2008 02:02:29 [id number] [facility] - [facility] [place] [address] [place] [address] 12/01/2005 11:06:46 12/01/2005 11:07:08 [id number] FP [facility] [place] [facility] [address] [place] [id number] 12/02/2005 09:40:49 12/02/2005 12:24:54 [id number] FP [facility] [place] [place] [address] [place] [id number] 1 12/05/2005 10:52:16 12/08/2005 09:32:36 [id number] [facility] [place] [place] [address] [place] [address] 12/10/2005 14:20:32 12/10/2005 17:21:31 [id number] [facility], OFFICE [address] [place] [address] 12/12/2005 10:12:02 12/12/2005 13:55:19 [id number] [facility] [address] [place] [address] 12/15/2005 07:56:58 12/15/2005 10:52:40 [id number] [facility] [address] [place] [address] 1 12/19/2005 09:58:38 12/19/2005 09:58:49 Health Concerns [...] - RAILROAD MEDICARE [facility] [id number] 1 12/10/2005 1 MEDICARE B: [place] [employer] - RAILROAD MEDICARE [facility] [id number] 1 12/12/2005 1 MEDICARE B: [place] [employer] - [employer]ILROAD MEDICARE [facility] [id number] 1 12/15/2005 1 MEDICARE B: [place] [employer] - RAILROAD MEDICARE [facility] [id number] 1 12/19/2005 1 MEDICARE B: [place] [employer] - RAILRO[employer] MEDICARE [facility] [id number] 1 OBGyn Episode No OBEpisode recorded.
== END 2024-07-27 09:48 | disposition home or self-care (01) ==
LOC: HO.ACS 09:07
PROVIDERS: PCP Internal Medicine; Visit Provider Internal Medicine Medical Oncology
DX: Z79.01 Long term (current) use of anticoagulants (principal)

== ENCOUNTER → 2024-07-27 09:07 | Outpatient (BNVA) | payer MEDICARE, SELFPAY | PROVIDERS: PCP Internal Medicine; Visit Provider Internal Medicine Medical Oncology | DX: Z86.718 Personal history of other venous thrombosis and embolism (principal); Z79.01 Long term (current) use of anticoagulants; Z51.81 Encounter for therapeutic drug level monitoring | CPT/HCPCS: 85610; 99211 ==

== ENCOUNTER 2024-07-29 13:01 | Outpatient (AMB) | payer MEDICARE, SELFPAY ==
[2024-07-29 13:32] LABS: Prothrombin Time Whole Bld POC 24.1 sec (11.1-13.5)
--- NOTE | 2024-07-29 13:36 | MHC.OFFVISCO ---
Intake Intake Visit Reasons: Anticoagulation Allergies shrimp [SHRIMP] Allergy (Mild, Verified 07/29/24 13:16) HIVES diltiazem Adverse Reaction (Severe, Uncoded 07/29/24 13:16) feet pain, swelling Medication List - Last Reconciled 07/29/24 by Clover Granados, RN amlodipine 5 mg PO DAILY ammonium lactate 12% 1 appl topical BID amoxicillin 500 mg PO BID 7 days apple cider vinegar PO BID atorvastatin 40 mg PO DAILY blood sugar diagnostic (Accu-Chek Guide test strips) As directed 2 times per day blood-glucose meter TEST 2 TIMES DAILY blood-glucose meter (Accu-Chek Guide Glucose Meter) As directed cyanocobalamin (vitamin B-12) 1,000 mcg PO DAILY enoxaparin (Lovenox) 100 mg subcut DAILY 3 days esomeprazole magnesium (Nexium) 20 mg PO DAILY furosemide 20 mg PO DAILY glipizide 5 mg PO DAILY lancing device ACCU-CHECK DARLINE DEVICE lancing device (Adjustable Lancing Device) As directed lisinopril 40 mg PO DAILY 90 days phenytoin sodium extended 200 mg PO BID tizanidine 4 mg PO Q8H PRN warfarin 5 mg See Protocol PO DAILY Nursing Note INR: 2.0 in therapeutic range of 2-3 INR 2.0 two days ago on 07/27/24 Not sure why she was so low although she only took a half a tab on 07/27/24 she states because she was afraid the INR was high due to antibiotics she was on. Medications and supplements reviewed No changes in health, diet, medications, or supplements, Denies any signs and symptoms of bleeding or bruising or clotting. Bleeding, bruising, clotting discussed Nutritional guidance given to avoid greens today Dose: &.5mg today and then resume usual dose of 5mg X 4 days and 2.5mg X 3 days (M/W/F) Pt will take one more dose of lovenox today F/U INR: 1 week Patient verbalizes understanding of instructions given Anti-Coag Initial Assessment Social Hx Patient Tobacco Use Status: Never used Tobacco Tobacco use type: Cigarette alcohol intake: never Alcohol intake frequency: a few times a month Coding Level of Care Code Est Patient Level 2 Diagnoses Current use of anticoagulant therapy Z79.01 Comment complicated pt, Crit INR result 2 days ago Results AMB INR Fingerstick AMB INR Fingerstick 2.0 Last Edit by Clover Granados RN on 07/29/24 13:28 interface delay Assessment & Plan Assessment & Plan (1) Current use of anticoagulant therapy: Code(s): 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
--- OUTSIDE RECORDS SUMMARY | 2024-07-29 14:53 | XMS_ITS | Clinical Summary ---
Author Organization [facility] Address [address] [place] [address] Care Team Providers Care Community Arts Worker Name Role Phone Unavailable Primary Care Provider Unavailabl e Encounters Date Type Department Care Team Description 05/31/2024 [facility] [address] [place] [phone] Syd Gastelum MD Epilepsy, unspecified, not intractable, without status epilepticus (CMS/HCC) 05/30/2024 [facility] [address] [place] [address] [phone] Syd Gastelum MD Epilepsy, unspecified, not intractable, without status epilepticus (CMS/HCC) 05/27/2024 [facility] [address] [place] [phone] Syd Gastelum MD Epilepsy, unspecified, not intractable, [...]
== END 2024-07-29 13:42 | disposition home or self-care (01) ==
LOC: HO.ACS 13:01
PROVIDERS: PCP Internal Medicine; Visit Provider Internal Medicine Medical Oncology
DX: Z79.01 Long term (current) use of anticoagulants (principal)

== ENCOUNTER → 2024-07-29 13:01 | Outpatient (BNVA) | payer MEDICARE, SELFPAY | PROVIDERS: PCP Internal Medicine; Visit Provider Internal Medicine Medical Oncology | DX: Z86.718 Personal history of other venous thrombosis and embolism (principal); Z79.01 Long term (current) use of anticoagulants; Z51.81 Encounter for therapeutic drug level monitoring | CPT/HCPCS: 85610; 99212 ==

== ENCOUNTER 2024-08-05 13:31 | Outpatient (AMB) | payer MEDICARE, SELFPAY ==
[2024-08-05 13:38] LABS: Prothrombin Time Whole Bld POC 19.8 sec (11.1-13.5); ~PT, ~INR - Anti Coag Clinic 1.6 (0.9-1.1)
--- OUTSIDE RECORDS SUMMARY | 2024-08-05 13:52 | XMS_ITS | Data Portability ---
Author Organization [place] - [facility], , [facility] Address [address] [place] [address] Assessment No assessment recorded. Plan of Treatment [...] ) ALT 42 U/L 30-65 Not Available [address], [address], 06/26/2008 02:36:06 11/29/1911/28/2005 hemog lobin A1C w/ mpg hemoglobin A1C 5.6 % 4.8-6. 0 goal: <7% in patie nts with diabe ernestine Not Available [address], [address], 06/26/2008 02:36:06 11/29/1911/28/2005 lipid panel cholesterol 245 mg/dL <200 mg/dL naz eable 200-2 39 mg/dL borde rline high >240 mg/dL high Not Available [address], [address], 06/26/2008 02:36:06 11/29/1911/28/2005 lipid panel triglyceride s 216 mg/dL <150 mg/dL helene l 150-1 99 mg/dL borde rline high 200-4 99 mg/dL high >500 mg/dL very high Not Available [address], [address], 06/26/2008 02:36:06 11/29/1911/28/2005 lipid panel direct HDL 62 mg/dL <40 mg/dL - major risk for CHD >60 mg/dL - negat danyell risk for CHD Not Available [address], [address], 06/26/2008 02:36:06 11/29/1911/28/2005 lipid panel direct LDL [...] r IS not necvinod faby. Not Available [address], [address], 06/26/2008 02:36:06 12/02/19 06 12/01/2005 mendez jha n time PT 41.1 secon ds 9.0-10 .4 high Not Available [address], [address], 06/26/2008 03:22:12 12/02/19 06 12/01/2005 proth radhabi n time INR 4.1 0.9-1. 1 high sugge sted value of 2.0-3 .0 for proph ylaxi s of venou s thomb osis, and preve ntion of embol ism. sugge sted value of 2.5-3 .5 for preve ntion of recur rent embol ism or patie nts with mecha nical prost hetic heart valve s. Not Available [address], [address], 06/26/2008 03:22:12 12/16/19 06 12/15/2005 proth rombi n time PT 23.6 secon ds 9.0-10 .4 high Not Available [address], [address], 06/26/2008 03:41:29 12/16/19 06 12/15/2005 proth rombi n time INR 2.4 0.9-1. 1 high sugge sted value of 2.0-3 .0 for proph ylaxi s of venou s thomb osis, and preve ntion of embol ism. sugge sted value of 2.5-3 .5 for preve ntion of recur rent embol ism or patie nts with mecha nical prost hetic heart valve s. Not Available [address], [address], 06/26/2008 03:41:29 12/20/19 06 12/19/2005 proth rombi n time PT 23.3 secon ds 9.0-10 .4 high Not Available [address], [address], 06/26/2008 03:27:20 12/20/19 06 12/19/2005 proth rombi n time INR 2.4 0.9-1. 1 high sugge sted value of 2.0-3 .0 for proph ylaxi s of venou s thomb osis, and preve ntion of embol ism. sugge sted value of 2.5-3 .5 for preve ntion of recur rent embol ism or patie nts with mecha nical prost hetic heart valve s. Not Available [address], [address], 06/26/2008 03:27:20 Result Notes None recorded. 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 Active 2005 Not Available [facility] 3 03:12:20 Benign essential hypertensi on 7735845 Active 2003 Not Available [facility] 3 03:12:20 Atrial fibrillati on 60392093 Active 2004 Not Available [facility] 3 03:12:20 Phlebitis of the femoral vein 160799268 Active 2003 Not Available [facility] 3 03:12:20 Major depression , melancholi c type 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 Active 2005 Not Available [facility] 3 03:12:20 Common cold 87038497 Completed 200403/16/2013 Not Available [facility] 3 02:00:29 Hand joint pain 832449801 Completed 200403/16/2013 Not Available [facility] 3 02:02:43 Edema of extremity 830228661 Completed 200303/16/2013 Not Available [facility] 3 02:02:55 On examinatio n - a rash Completed 200403/16/2013 Not Available [facility] 3 02:00:49 Seizure 26937646 Active 2004 Not Available [facility] 3 03:12:20 Type 2 diabetes mellitus without complicati on 362129372 Active 2003 Not Available [facility] 3 03:12:20 Acute maxillary sinusitis 57646285 Completed 200403/16/2013 Not Available [facility] 3 02:01:43 Abnormal weight gain 760471263 Active 2003 Not Available [facility] 3 03:12:20 Generalize d abdominal pain 612778075 Completed 200303/16/2013 Not Available [facility] 3 02:02:06 Hyperlipid emia 46449088 Active 2004 Not Available [facility] 3 03:12:20 Dysuria 11351822 Completed 200303/16/2013 Not Available [facility] 3 02:02:00 Peripheral venous insufficie ncy 24943233 Active 2003 Not Available [facility] 3 03:12:20 Hypothyroi dism 18212515 Active 2004 Not Available [facility] 3 03:12:20 Streptococ samm sore throat 29052884 Completed 200303/16/2013 Not Available [facility] 3 02:02:03 Acute bronchitis 49632168 Completed 200403/16/2013 Not Available [facility] 3 02:01:37 Problem Notes None recorded. Medical [...] influenza, unspecified formulation 4 completed Not Available [facility] 03/12/2011 05:21:07 influenza, unspecified formulation 4 completed Not Available [facility] 03/12/2011 05:21:07 influenza, unspecified formulation 5 completed Not Available [facility] 03/12/2011 05:21:29 influenza, unspecified formulation 5 completed Not Available [facility] 03/12/2011 05:21:29 Past Encounters Encounter ID Performer Location Encounter Start Date Encounter Closed Date Diagnosis/Indication Diagnosis SNOMED-CT Code Diagnosis ICD10 Code Diagnosis Note [id number] , [facility] [place], OFFICE [address] [place] [address] 11/16/2003 12:14:30 11/22/2003 09:27:14 [id number] [facility] [place], [place] [id number] 12/22/2003 09:56:38 12/25/2003 15:40:32 [id number] [facility] [place], OFFICE [address] [place] [id number] 01/19/2004 09:54:48 01/22/2004 08:56:58 [id number] [facility] [place], OFFICE [address] [place] [address] 02/02/2004 09:07:12 02/02/2004 12:21:32 [id number] [facility] [place] [address] [place] [address] 02/02/2004 07:26:36 02/02/2004 09:21:04 [id number] [facility] [place], [address] [place] [id number] 03/07/2004 08:50:31 03/07/2004 17:12:49 [id number] [facility] [place], [place] [id number] 04/05/2004 09:48:00 04/09/2004 08:47:39 [id number] FP [facility] [place], OFFICE [address] [place] [id number] 04/15/2004 15:03:12 04/15/2004 17:36:23 [id number] [facility] [place], [place] [address] [place] [id number] 04/12/2004 10:53:34 05/17/2008 02:02:29 [id number] FP [facility] [place] [place], OFFICE [address] [place] [id number] 04/22/2004 14:57:11 04/23/2004 09:26:19 [id number] FP [facility] [place], OFFICE [address] JASSOMAXIMDanilo [place] [id number] 05/03/2004 10:24:03 05/06/2004 08:51:52 [id number] [facility] [place], OFFICE [address] JASSOMAXIMDanilo [place] [id number] 05/20/2004 10:47:03 05/21/2004 08:35:20 [id number] FP [facility] [place], OFF[address] JASSOMAXIMDanilo [place] [id number] 05/24/2004 11:19:37 05/27/2004 09:14:32 [id number] [facility] [place], OFFICE [address] [place] [id number] 05/27/2004 09:35:41 05/28/2004 09:13:28 [id number] [facility] [place], OFFICE [address] [place] [id number] 06/04/2004 08:58:14 06/04/2004 17:23:42 [id number] [facility] [place], OFFICE [address] [place] [address] 06/18/2004 10:00:16 06/18/2004 16:52:29 [id number] [facility] [address] [place] [address] 06/18/2004 07:34:32 06/18/2004 09:59:04 [id number] [facility] [place], OFFICE [address] [place] [id number] 06/27/2004 11:46:29 06/28/2004 09:09:13 [id number] [facility] [place], [place] [id number] 08/14/2004 11:47:27 08/15/2004 08:54:14 [id number] [facility] [place], [place] [id number] 09/19/2004 16:03:15 09/20/2004 16:06:43 [id number] [facility] [place], [place] [id number] 10/17/2004 08:40:42 10/17/2004 15:32:26 [id number] [facility] [place] [place] [address] [place] [id number] 10/17/2004 07:29:38 10/17/2004 09:02:48 [id number] [facility] [place] [id number] 10/25/2004 10:49:52 11/01/2004 08:36:26 [id number] [facility] [place], [place] [id number] 11/19/2004 09:04:39 11/20/2004 08:14:19 [id number] [facility] [place], OFFICE [address] [place] [address] [place] [id number] 11/26/2004 08:55:17 11/26/2004 16:24:15 [id number] [facility] [place], OFFICE [address] [place] [address] 12/03/2004 09:11:25 12/04/2004 14:38:40 [id number] [facility] , [facility] [address] [place] [id number] 12/05/2004 10:50:31 12/05/2004 11:29:40 [id number] [facility] [place] [place], OFFICE [address] [place] [id number] 12/20/2004 08:19:23 12/20/2004 15:41:51 [id number] [facility] [place] [address] [place] [id number] 12/20/2004 07:34:27 12/20/2004 08:05:52 [id number] [facility] [place] [place], OFFICE [address] [place] [id number] 12/27/2004 09:49:39 12/27/2004 15:08:31 [id number] [facility] [place], OFFICE [address] [place] [id number] 12/31/2004 11:01:20 01/02/2005 10:36:32 [id number] [facility] [place], OFFICE [address] [place] [id number] 01/08/2005 10:14:21 01/08/2005 15:13:20 [id number] [facility] [place], OFFICE [address] [place] [id number] 01/16/2005 10:11:30 01/16/2005 15:05:45 [id number] [facility] [place] [place], OFFICE [address] [place] [id number] 01/30/2005 10:31:42 01/30/2005 14:44:48 [id number] [facility] [place] [place], OFFICE [address] [place] [id number] 02/18/2005 15:03:31 02/18/2005 17:29:51 [id number] [facility] [place] [place], OFFICE [address] [place] [id number] 03/05/2005 14:53:36 03/05/2005 17:29:44 [id number] [facility] [place] [place], OFFICE [address] [place] [id number] 03/06/2005 11:53:52 03/06/2005 15:47:59 [id number] [facility] [address] [place] [id number] 03/05/2005 15:26:52 03/05/2005 15:27:17 [id number] [facility] [place], OFFICE [address] [place] [id number] 03/18/2005 16:33:44 03/19/2005 08:28:27 [id number] [facility] [place] [place], OFFICE [address] [place] [id number] 1 03/26/2005 14:01:26 03/26/2005 16:56:44 [id number] [facility] [place], OFFICE [address] [place] [id number] 04/25/2005 15:06:42 04/29/2005 10:24:01 [id number] [facility] [place] [place], OFFICE [address] [place] [id number] 04/02/2005 13:33:35 04/02/2005 14:27:[id number] [place] [id number] 05/15/2005 13:10:28 05/15/2005 13:11:25 [id number] [facility] [address] [place] [id number] 06/02/2005 08:59:09 06/02/2005 09:00:10 [id number] [facility] [place] [place], OFFICE [address] [place] [id number] 06/09/2005 09:48:13 06/09/2005 17:49:27 [id number] [facility] [address] [place] [id number] 06/30/2005 07:39:14 06/30/2005 10:47:09 [id number] [place] [address] [place] [id number] 07/15/2005 07:35:21 07/15/2005 10:38:06 [id number] [facility] [address] [place] [id number] 08/05/2005 07:38:24 08/05/2005 10:34:53 [id number] [facility] [place], OFFICE [address] [place] [id number] 08/08/2005 11:53:47 08/08/2005 14:52:47 [id number] [facility] [place] [place], OFFICE [address] [place] [id number] 08/11/2005 10:19:48 08/11/2005 15:05:14 [id number] [facility] [place], OFFICE [address] [place] [id number] 08/18/2005 10:57:06 08/18/2005 15:15:34 [id number] [facility] [place], OFFICE [address] [place] [id number] 08/25/2005 11:48:03 08/25/2005 17:40:40 [id number] [facility] [place], OFFICE [address] [place] [id number] 09/17/2005 11:31:19 09/17/2005 15:17:53 [id number] FP [facility] [place], OFFICE [address] [place] [id number] 1 10/09/2005 16:05:18 10/10/2005 16:24:20 [id number] [facility] [place], OFFICE [address] [place] [id number] 10/20/2005 09:54:51 10/20/2005 17:30:28 [id number] [facility] [place] [place], OFFICE [address] [place] [id number] 11/17/2005 10:54:13 11/17/2005 17:50:24 [id number] [facility] [address] [place] [id number] 11/28/2005 07:30:03 11/28/2005 08:43:26 [id number] [facility] [place], OFFICE [address] [place] [id number] 12/01/2005 10:50:57 05/17/2008 02:02:29 [id number] LAB - [facility] [address] [place] [id number] 12/01/2005 11:06:46 12/01/2005 11:07:08 [id number] FP [facility] [place] OFFICE [address] [place] [id number] 12/02/2005 09:40:49 12/02/2005 12:24:54 [id number] FP [facility] [place] [place], OFFICE [address] [place] [id number] 12/05/2005 10:52:16 12/08/2005 09:32:36 [id number] FP [facility] [place], OFFICE [address] [place] [id number] 12/10/2005 14:20:32 12/10/2005 17:21:31 [id number] [facility], OFFICE [address] [place] [id number] 12/12/2005 10:12:02 12/12/2005 13:55:19 [id number] [facility] [address] [place] [id number] 12/15/2005 07:56:58 12/15/2005 10:52:40 [id number] [facility] [address] [place] [id number] 12/19/2005 09:58:38 12/19/2005 09:58:49 Health Concerns Section Related Observation LastModified by Organization Detai ls LastModified Time None Recorded Concern Status LastModified by Organization Details LastModified Time None Recorded Advance Directives Directive None Recorded Payers Encounter Date Sequence Insurance Name Policy Number Policy Arce Covered Member ID Arce Member ID Guarantor Name 12/05/2005 1 MEDICARE B: [employer] MEDICARE Mary Jane [facility] [id number] 1 12/10/2005 1 MEDICARE B: [employer] MEDICARE Mary Jane [facility] [id number] 1 12/12/2005 1 MEDICARE B: [employer] MEDICARE Mary Jane [facility] [id number] 1 12/15/2005 1 MEDICARE B: [employer] MEDICARE Mary Jane [facility] [id number] 1 12/19/2005 1 MEDICARE B: [employer] MEDICARE Mary Jane [facility] [id number] 1 OBGyn Episode No OBEpisode recorded.
--- OUTSIDE RECORDS SUMMARY | 2024-08-05 13:52 | XMS_ITS | Clinical Summary ---
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 Name Role Phone Unavailable Primary Care Provider Unavailabl e Encounters Date Type Department Care Team Description 05/31/2024 [facility] Neurodiagnostic [address] [place] [phone] Syd Gastelum MD Epilepsy, unspecified, not intractable, without status epilepticus ([facility] V24, [facility] V28) 05/30/2024 [facility]diagn[facility] [address] [place] [phone] Syd Gastelum MD Epilepsy, unspecified, not intractable, without status epilepticus ([facility] V24, [facility] V28) 05/27/2024 [facility] Neurodiagn[facility] [address] [place] [phone] Syd Gastelum MD Epilepsy, unspecified, not intractable, without status epilepticus ([facility] V24, [facility] V28) from Last 3 Months Social History Tobacco [...] Vaccine ( - 2023-2 5 season) 2023 Depression Screening 05/26/2024 Falls Risk Assessment 05/26/2024 Hepatitis C Screening 05/26/2024 Medicare Annual Wellness Visit 05/26/2024 Osteoporosis Screening (Bone Density Screening) 05/26/2024 Social Influencers of Health Screening 05/26/2024 Influenza Vaccine (Season Ended) 2024 HIB Vaccines Aged Out No longer eligi [...] age to complete this topic Meningococcal B Vaccine Aged Out No l onger eligible based on patient's age to complete this topic RSV Immunization Patients Un fili 20 months Aged Out No longer eligible b ased on patient's age to complete this topic Varicella Vaccines Aged Out No longer eligible based on patient's age to complete this topic Insurance [employer] MEDICARE [place]ID - [place]
--- NOTE | 2024-08-05 13:54 | MHC.OFFVISCO ---
Intake Intake Visit Reasons: Anticoagulation Allergies shrimp [SHRIMP] Allergy (Mild, Verified 08/05/24 13:32) HIVES diltiazem Adverse Reaction (Severe, Uncoded 08/05/24 13:32) feet pain, swelling Medication List - Last Reconciled 08/05/24 by Clover Granados, RN amlodipine 5 mg PO DAILY ammonium lactate 12% 1 appl topical BID amoxicillin 500 mg PO BID 7 days apple cider vinegar PO BID atorvastatin 40 mg PO DAILY blood sugar diagnostic (Accu-Chek Guide test strips) As directed 2 times per day blood-glucose meter TEST 2 TIMES DAILY blood-glucose meter (Accu-Chek Guide Glucose Meter) As directed cyanocobalamin (vitamin B-12) 1,000 mcg PO DAILY enoxaparin (Lovenox) 100 mg See Protocol subcut DAILY 3 days esomeprazole magnesium (Nexium) 20 mg PO DAILY furosemide 20 mg PO DAILY glipizide 5 mg PO DAILY lancing device ACCU-CHECK DARLINE DEVICE lancing device (Adjustable Lancing Device) As directed lisinopril 40 mg PO DAILY 90 days phenytoin sodium extended 200 mg PO BID tizanidine 4 mg PO Q8H PRN warfarin 5 mg See Protocol PO DAILY Nursing Note INR: 1.6?out of therapeutic range of 2-3 Medications and supplements reviewed Patient status: states she is on a diet. Has redness right lower leg. ? cellulits. No open areas. States she will contact her MD. Pt also reports microscopic blood in urine and is going for an ultrasound. Medications or supplements: no changes Diet: eating healthier Denies any signs and symptoms of bleeding or clotting or unusual bruising Bleeding, bruising, clotting discussed Nutritional guidance given: to avoid greens next 3 days and to have foods that raise the INR. Food list discussed/reviewed. Dose: increase today's dose to 7.5mg (2.5mg) then weekly dose increased by 2.5mg to 5mg X 5 days and 2.5mg X 2 days. F/U INR Date : 6 days? Patient verbalizing understanding of instructions given. 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
== END 2024-08-05 16:08 | disposition home or self-care (01) ==
LOC: HO.ACS 13:31
PROVIDERS: PCP Internal Medicine; Visit Provider Internal Medicine Medical Oncology
DX: Z79.01 Long term (current) use of anticoagulants (principal)

== ENCOUNTER → 2024-08-05 13:31 | Outpatient (BNVA) | payer MEDICARE, SELFPAY | PROVIDERS: PCP Internal Medicine; Visit Provider Internal Medicine Medical Oncology | DX: Z86.718 Personal history of other venous thrombosis and embolism (principal); Z51.81 Encounter for therapeutic drug level monitoring; Z79.01 Long term (current) use of anticoagulants | CPT/HCPCS: 85610; 99211 ==

== ENCOUNTER 2024-08-10 08:01 | Outpatient (AMB) | payer MEDICARE, SELFPAY ==
--- OUTSIDE RECORDS SUMMARY | 2024-08-10 08:06 | XMS_ITS | Clinical Summary ---
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 Neurodiagnostic [address] [place] [phone] Syd Gastelum MD Epilepsy, unspecified, not intractable, without status epilepticus ([facility] V24, [facility] V28) 05/30/2024 [facility] Neurodiagnostic [address] [place] [phone] Syd Gastelum MD Epilepsy, unspecified, not intractable, without status epilepticus ([facility] V24, [facility] V28) 05/27/2024 [facility]diagn[facility] [address] [place] [phone] Syd Gastelum MD Epilepsy, unspecified, not intractable, without status epilepticus ([facility] V24, [facility] V28) from Last 3 Months Social [...]
--- OUTSIDE RECORDS SUMMARY | 2024-08-10 08:07 | XMS_ITS | Data Portability ---
Author Organization [place] [facility], , [facility] Address [address] [place] [address] Assessment No assessment recorded. Plan of Treatment [...] ) ALT 42 U/L 30-65 Not Available [address], [address], 06/26/2008 02:36:06 11/29/1911/28/2005 hemog lobin A1C w/ mpg hemoglobin A1C 5.6 % 4.8-6. 0 goal: <7% in patie nts with diabe ernestine Not Available [address], [address], 06/26/2008 02:36:06 11/29/1911/28/2005 lipid panel cholesterol 245 mg/dL <200 mg/dL naz eable 200-2 39 mg/dL borde rline high >240 mg/dL high Not Available [address], [address], 06/26/2008 02:36:06 11/29/1911/28/2005 lipid panel triglyceride s 216 mg/dL <150 mg/dL helene l 150-1 99 mg/dL borde rline high 200-4 99 mg/dL high >500 mg/dL very high Not Available [address], [address], 06/26/2008 02:36:06 11/29/1911/28/2005 lipid panel direct HDL 62 mg/dL <40 mg/dL - major risk for CHD >60 mg/dL - negat danyell risk for CHD Not Available [address], [address], 06/26/2008 02:36:06 11/29/1911/28/2005 lipid panel direct LDL [...] r IS not necvinod faby. Not Available [address], [address], 06/26/2008 02:36:06 12/02/19 06 12/01/2005 mendez jha n time PT 41.1 secon ds 9.0-10 .4 high Not Available [address], [address], 06/26/2008 03:22:12 12/02/19 06 12/01/2005 proth radhabi n time INR 4.1 0.9-1. 1 high sugge sted value of 2.0-3 .0 for proph ylaxi s of venou s thomb osis, and preve ntion of embol ism. sugge sted value of 2.5-3 .5 for preve ntion of recur rent embol ism or patie nts with mecha nical prost hetic heart valve s. Not Available [address], [address], 06/26/2008 03:22:12 12/16/19 06 12/15/2005 proth rombi n time PT 23.6 secon ds 9.0-10 .4 high Not Available [address], [address], 06/26/2008 03:41:29 12/16/19 06 12/15/2005 proth rombi n time INR 2.4 0.9-1. 1 high sugge sted value of 2.0-3 .0 for proph ylaxi s of venou s thomb osis, and preve ntion of embol ism. sugge sted value of 2.5-3 .5 for preve ntion of recur rent embol ism or patie nts with mecha nical prost hetic heart valve s. Not Available [address], [address], 06/26/2008 03:41:29 12/20/19 06 12/19/2005 proth rombi n time PT 23.3 secon ds 9.0-10 .4 high Not Available [address], [address], 06/26/2008 03:27:20 12/20/19 06 12/19/2005 proth rombi n time INR 2.4 0.9-1. 1 high sugge sted value of 2.0-3 .0 for proph ylaxi s of venou s thomb osis, and preve ntion of embol ism. sugge sted value of 2.5-3 .5 for preve ntion of recur rent embol ism or patie nts with mecha nical prost hetic heart valve s. Not Available [address], [address], 06/26/2008 03:27:20 Result Notes None recorded. 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 Active 2005 Not Available [facility] 3 03:12:20 Benign essential hypertensi on 5518306 Active 2003 Not Available [facility] 3 03:12:20 Atrial fibrillati on 30405702 Active 2004 Not Available [facility] 3 03:12:20 Phlebitis of the femoral vein 389675872 Active 2003 Not Available [facility] 3 03:12:20 Major depression , melancholi c type 380359998 Active 2005 Not Available [facility] 3 03:12:20 Common cold 32423652 Completed 200403/16/2013 Not Available [facility] 3 02:00:29 Hand joint pain 186671224 Completed 200403/16/2013 Not Available [facility] 3 02:02:43 Edema of extremity 599498544 Completed 200303/16/2013 Not Available [facility] 3 02:02:55 On examinatio n - a rash Completed 200403/16/2013 Not Available [facility] 3 02:00:49 Seizure 98207556 Active 2004 Not Available [facility] 3 03:12:20 Type 2 diabetes mellitus without complicati on 121975218 Active 2003 Not Available [facility] 3 03:12:20 Acute maxillary sinusitis 68411364 Completed 200403/16/2013 Not Available [facility] 3 02:01:43 Abnormal weight gain 614784447 Active 2003 Not Available [facility] 3 03:12:20 Generalize d abdominal pain 499131830 Completed 200303/16/2013 Not Available [facility] 3 02:02:06 Hyperlipid emia 42860956 Active 2004 Not Available [facility] 3 03:12:20 Dysuria 20754748 Completed 200303/16/2013 Not Available [facility] 3 02:02:00 Peripheral venous insufficie ncy 67467338 Active 2003 Not Available [facility] 3 03:12:20 Hypothyroi dism 52327621 Active 2004 Not Available [facility] 3 03:12:20 Streptococ samm sore throat 80629364 Completed 200303/16/2013 Not Available [facility] 3 02:02:03 Acute bronchitis 97263510 Completed 200403/16/2013 Not Available [facility] 3 02:01:37 Problem Notes None recorded. Medical [...] influenza, unspecified formulation 4 completed Not Available [facility] 03/12/2011 05:21:07 influenza, unspecified formulation 4 completed Not Available [facility] 03/12/2011 05:21:07 influenza, unspecified formulation 5 completed Not Available [facility] 03/12/2011 05:21:29 influenza, unspecified formulation 5 completed Not Available [facility] 03/12/2011 05:21:29 Past Encounters Encounter ID Performer Location Encounter Start Date Encounter Closed Date Diagnosis/Indication Diagnosis SNOMED-CT Code Diagnosis ICD10 Code Diagnosis Note [id number] , [facility], OFFICE [address] [place] [address] 11/16/2003 12:14:30 11/22/2003 09:27:14 [id number] [facility], [place] [address] 12/22/2003 09:56:38 12/25/2003 15:40:32 [id number] [facility], OFFICE [address] [place] [address] 01/19/2004 09:54:48 01/22/2004 08:56:58 [id number] [facility], OFFICE [address] [place] [address] 02/02/2004 09:07:12 02/02/2004 12:21:32 [id number] [facility] [address] [place] [address] 02/02/2004 07:26:36 02/02/2004 09:21:04 [id number] [facility], [address] [place] [address] 03/07/2004 08:50:31 03/07/2004 17:12:49 [id number] [facility], [place] [address] 04/05/2004 09:48:00 04/09/2004 08:47:39 [id number] FP [facility], [address] [place] [address] 04/15/2004 15:03:12 04/15/2004 17:36:23 [id number] [facility], [address] [address] [place] [id number] 04/12/2004 10:53:34 05/17/2008 02:02:29 [id number] FP [facility], OFFICE [address] [place] [id number] 1 04/22/2004 14:57:11 04/23/2004 09:26:19 [id number] FP [facility], OFFICE [address] [place]IMDanilo [place] [id number] 1 05/03/2004 10:24:03 05/06/2004 08:51:52 [id number] [facility], OFF[address] [place] [id number] 1 05/20/2004 10:47:03 05/21/2004 08:35:20 [id number] FP [facility], OFF[address] [place] [id number] 1 05/24/2004 11:19:37 05/27/2004 09:14:32 [id number] [facility], OFFICE [address] [place] [address] 05/27/2004 09:35:41 05/28/2004 09:13:28 [id number] [facility], OFFICE [address] [place] [address] 06/04/2004 08:58:14 06/04/2004 17:23:42 [id number] [facility], OFFICE [address] [place] [address] 1 06/18/2004 10:00:16 06/18/2004 16:52:29 [id number] [facility] [address] [place] [id number] 06/18/2004 07:34:32 06/18/2004 09:59:04 [id number] [facility], OFFICE [address] [place] [address] 1 06/27/2004 11:46:29 06/28/2004 09:09:13 [id number] [facility], [place] [address] 08/14/2004 11:47:27 08/15/2004 08:54:14 [id number] [facility], [place] [address] 09/19/2004 16:03:15 09/20/2004 16:06:43 [id number] [facility], [place] [address] 10/17/2004 08:40:42 10/17/2004 15:32:26 [id number] [facility] [address] [place] [id number] 10/17/2004 07:29:38 10/17/2004 09:02:48 [id number] [facility] [place] [address] 10/25/2004 10:49:52 11/01/2004 08:36:26 [id number] [facility], [place] [address] 11/19/2004 09:04:39 11/20/2004 08:14:19 [id number] [facility], OFFICE [address] [place] [address] [place] [address] 11/26/2004 08:55:17 11/26/2004 16:24:15 [id number] [facility], OFF[address] [place] [address] 12/03/2004 09:11:25 12/04/2004 14:38:[id number] [facility] , [facility] [address] [place] [id number] 12/05/2004 10:50:31 12/05/2004 11:29:40 [id number] [facility], OFFICE [address] [place] [address] 12/20/2004 08:19:23 12/20/2004 15:41:51 [id number] [facility] [address] [place] [id number] 12/20/2004 07:34:27 12/20/2004 08:05:52 [id number] [facility], OFFICE [address] [place] [address] 12/27/2004 09:49:39 12/27/2004 15:08:31 [id number] [facility], OFFICE [address] [place] [address] 12/31/2004 11:01:20 01/02/2005 10:36:32 [id number] [facility], OFFICE [address] [place] [address] 01/08/2005 10:14:21 01/08/2005 15:13:20 [id number] [facility], OFFICE [address] [place] [address] 01/16/2005 10:11:30 01/16/2005 15:05:45 [id number] [facility], OFFICE [address] [place] [id number] 01/30/2005 10:31:42 01/30/2005 14:44:48 [id number] [facility], OFFICE [address] [place] [address] 02/18/2005 15:03:31 02/18/2005 17:29:51 [id number] [facility], OFFICE [address] [place] [address] 03/05/2005 14:53:36 03/05/2005 17:29:44 [id number] [facility], OFFICE [address] [place] [address] 03/06/2005 11:53:52 03/06/2005 15:47:59 [id number] [facility] [address] [place] [address] 1 03/05/2005 15:26:52 03/05/2005 15:27:17 [id number] [facility], OFFICE [address] [place] [address] 1 03/18/2005 16:33:44 03/19/2005 08:28:27 [id number] [facility], OFFICE [address] [place] [id number] 1 03/26/2005 14:01:26 03/26/2005 16:56:44 [id number] [facility], OFFICE [address] [place] [address] 04/25/2005 15:06:42 04/29/2005 10:24:01 [id number] [facility], OFFICE [address] [place] [address] 04/02/2005 13:33:35 04/02/2005 14:27:[id number] [place] [address] 05/15/2005 13:10:28 05/15/2005 13:11:25 [id number] [facility] [address] [place] [address] 06/02/2005 08:59:09 06/02/2005 09:00:10 [id number] [facility], OFFICE [address] [place] [id number] 06/09/2005 09:48:13 06/09/2005 17:49:27 [id number] [facility] [address] [place] [address] 06/30/2005 07:39:14 06/30/2005 10:47:09 [id number] [place] [address] [place] [id number] 07/15/2005 07:35:21 07/15/2005 10:38:06 [id number] [facility] [address] [place] [address] 08/05/2005 07:38:24 08/05/2005 10:34:53 [id number] [facility], OFFICE [address] [place] [address] 1 08/08/2005 11:53:47 08/08/2005 14:52:47 [id number] [facility], OFFICE [address] [place] [address] 1 08/11/2005 10:19:48 08/11/2005 15:05:14 [id number] [facility], OFFICE [address] [place] [address] 08/18/2005 10:57:06 08/18/2005 15:15:34 [id number] [facility], OFFICE [address] [place] [address] 1 08/25/2005 11:48:03 08/25/2005 17:40:40 [id number] [facility], OFFICE [address] [place] [address] 1 09/17/2005 11:31:19 09/17/2005 15:17:53 [id number] FP [facility], OFFICE [address] [place] [id number] 10/09/2005 16:05:18 10/10/2005 16:24:20 [id number] [facility], OFFICE [address] [place] [address] 10/20/2005 09:54:51 10/20/2005 17:30:28 [id number] [facility], OFFICE [address] [place] [address] 11/17/2005 10:54:13 11/17/2005 17:50:24 [id number] [facility] [address] [place] [address] 1 11/28/2005 07:30:03 11/28/2005 08:43:26 [id number] [facility], OFFICE [address] [place] [address] 1 12/01/2005 10:50:57 05/17/2008 02:02:29 [id number] [facility] - [facility] [address] [place] [address] 12/01/2005 11:06:46 12/01/2005 11:07:08 [id number] FP [facility] OFFICE [address] [place] [address] 1 12/02/2005 09:40:49 12/02/2005 12:24:54 [id number] FP [facility], OFFICE [address] [place] [address] 12/05/2005 10:52:16 12/08/2005 09:32:36 [id number] FP [facility], OFFICE [address] [place] [address] 12/10/2005 14:20:32 12/10/2005 17:21:31 [id number] [facility], OFFICE [address] [place] [address] 1 12/12/2005 10:12:02 12/12/2005 13:55:19 [id number] [facility] [address] [place] [address] 12/15/2005 07:56:58 12/15/2005 10:52:40 [id number] [facility] [address] [place] [address] 1 12/19/2005 09:58:38 12/19/2005 09:58:49 Health Concerns Section Related Observation LastModified by Organization Detai ls LastModified Time None Recorded Concern Status LastModified by Organization Details LastModified Time None Recorded Advance Directives Directive None Recorded Payers Encounter Date Sequence Insurance Name Policy Number Policy Arce Covered Member ID Arce Member ID Guarantor Name 12/05/2005 1 MEDICARE B: [employer] MEDICARE Mary Jane [facility] [id number] 1 12/10/2005 1 MEDICARE B: [employer] MEDICARE Mary Jane [facility] [id number] 12/12/2005 1 MEDICARE B: [employer] MEDICARE Mary Jane [facility] [id number] 1 12/15/2005 1 MEDICARE B: [employer] MEDICARE Mary Jane [facility] [id number] 1 12/19/2005 1 MEDICARE B: [employer] MEDICARE Mary Jane [facility] [id number] OBGyn Episode No OBEpisode recorded.
[2024-08-10 08:15] LABS: Prothrombin Time Whole Bld POC 26.5 sec (11.1-13.5); ~PT, ~INR - Anti Coag Clinic 2.2 (0.9-1.1)
--- NOTE | 2024-08-10 08:23 | MHC.OFFVISCO ---
Intake Intake Visit Reasons: Anticoagulation Allergies shrimp [SHRIMP] Allergy (Mild, Verified 08/10/24 08:07) HIVES diltiazem Adverse Reaction (Severe, Uncoded 08/05/24 13:32) feet pain, swelling Medication List - Last Reconciled 08/10/24 by Celeste Chong, RN amlodipine 5 mg PO DAILY ammonium lactate 12% 1 appl topical BID amoxicillin 500 mg PO BID 7 days apple cider vinegar PO BID atorvastatin 40 mg PO DAILY blood sugar diagnostic (Accu-Chek Guide test strips) As directed 2 times per day blood-glucose meter TEST 2 TIMES DAILY blood-glucose meter (Accu-Chek Guide Glucose Meter) As directed cyanocobalamin (vitamin B-12) 1,000 mcg PO DAILY enoxaparin (Lovenox) 100 mg See Protocol subcut DAILY 3 days esomeprazole magnesium (Nexium) 20 mg PO DAILY furosemide 20 mg PO DAILY glipizide 5 mg PO DAILY lancing device ACCU-CHECK DARLINE DEVICE lancing device (Adjustable Lancing Device) As directed lisinopril 40 mg PO DAILY 90 days phenytoin sodium extended 200 mg PO BID tizanidine 4 mg PO Q8H PRN warfarin 5 mg See Protocol PO DAILY Nursing Note PT.TO SEE PCP TOMORROW RE ? LE3G CELLULITIS. NO CP,SOB,DIET/MED CHANGES,FALLS OR SX OF BLEEDING. PT.STATES THAT SHE TOOK 2.5MGM EXTRA WARFARIN THIS WEEK. WILL KEEP DOSE AT 2.5MGM X1 AND 5MGM X6 AND FOLLOW-UP IN 1 WEEK. TO [facility] IF ANTIBIOTICS ARE STARTED. 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
== END 2024-08-10 08:26 | disposition home or self-care (01) ==
LOC: HO.ACS 08:01
PROVIDERS: PCP Internal Medicine; Visit Provider Internal Medicine Medical Oncology
DX: Z79.01 Long term (current) use of anticoagulants (principal)

== ENCOUNTER → 2024-08-10 08:01 | Outpatient (BNVA) | payer MEDICARE, SELFPAY | PROVIDERS: PCP Internal Medicine; Visit Provider Internal Medicine Medical Oncology | DX: Z86.718 Personal history of other venous thrombosis and embolism (principal); Z79.01 Long term (current) use of anticoagulants; Z51.81 Encounter for therapeutic drug level monitoring | CPT/HCPCS: 85610; 99211 ==

== ENCOUNTER 2024-08-11 10:33 | Outpatient (AMB) | payer MEDICARE, SELFPAY ==
[2024-08-11 11:11] VITALS: BP 136/82; BMI 40.4
--- NOTE | 2024-08-11 11:11 | A.OFFPC_ITS ---
Vital Signs 08/11/24 11:11 Height 5 ft 2 in Weight 221 lb BMI 40.4 BP 136/82 Blood Pressure Location Lt brachial Position Sitting Intake Visit Reasons: (L) leg wound ? 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 Accompanied by: Self / Same As Patient Allergies shrimp [SHRIMP] Allergy (Mild, Verified 08/11/24 11:20) HIVES diltiazem Adverse Reaction (Severe, Uncoded 08/11/24 11:20) feet pain, swelling Medication List - Last Reconciled 08/11/24 by Spring Chicas MD amlodipine 5 mg PO DAILY ammonium lactate 12% 1 appl topical BID amoxicillin 500 mg PO BID 7 days apple cider vinegar PO BID atorvastatin 40 mg PO DAILY blood sugar diagnostic (Accu-Chek Guide test strips) As directed 2 times per day blood-glucose meter TEST 2 TIMES DAILY blood-glucose meter (Accu-Chek Guide Glucose Meter) As directed cyanocobalamin (vitamin B-12) 1,000 mcg PO DAILY enoxaparin (Lovenox) 100 mg See Protocol subcut DAILY 3 days esomeprazole magnesium (Nexium) 20 mg PO DAILY furosemide 20 mg PO DAILY glipizide 5 mg PO DAILY lancing device ACCU-CHECK DARLINE DEVICE lancing device (Adjustable Lancing Device) As directed lisinopril 40 mg PO DAILY 90 days phenytoin sodium extended 200 mg PO BID tizanidine 4 mg PO Q8H PRN warfarin 5 mg See Protocol PO DAILY Tobacco use date assessed: 07/18/24 Dental Screening Dental Screen Date: 07/18/24 HPI HPI Comments History of Present Illness Details The patient is a 78-year-old female presenting with concerns regarding leg infection and anticoagulation management. She reports having a recurrent issue of cellulitis and venous stasis dermatitis, with current symptoms including redness and pain on her leg. Although the patient is under Coumadin treatment, she mentions issues with the regulation of her blood thickness, notably when the dose was adjusted to 2.5 mg. She associates poor circulation related to the leg symptoms, especially when her anticoagulant therapy is not at optimal levels, leading to exacerbations of her condition. There is a noted history of blood clots, and the patient recalls previous incidents where an infection in the leg was successfully treated with antibiotics and topical applications. In earlier episodes, wrapping the leg has been beneficial. Despite concerns of severe leg symptoms, the patient does not have vascular surgery follow-up but relies on managing the condition through prescribed treatments and recommendations, including blood thinning and the use of a steroid cream. Furthermore, she did not report receiving the prescribed Lovenox shots intended to manage her blood coagulation levels. The patient's history also includes allergic reactions to specific medications and foods, identified as shrimp and diltiazem. She has morbid obesity with a BMI of 40.4 and was advised to do diet and exercise as tolerated. She also has diabetes mellitus type 2, history of seizures controlled with phenytoin and atrial fibrillation on chronic anticoagulation. [facility] Medical History (Updated 08/11/24 @ 12:24 by Spring Chicas MD) PAF (paroxysmal atrial fibrillation) Atrial fibrillation Factor V Leiden DVT (deep venous thrombosis) Hyperlipidemia Hypertension Diabetes mellitus with coincident hypertension Surgical History History of lumpectomy of right breast History of appendectomy History of cholecystectomy Family History Father Asthma Mother Diabetes Hypertension Colon cancer Other Substance use disorder Social History Household Members: None Housing: Apartment Do you presently have visiting nurse or other home services: No Alcohol intake: never Patient Tobacco Use Status: Never used Tobacco Tobacco use type: Cigarette e-Cigarette/Vaping Use: Never Used Second Hand Smoke Exposure: No Advance Directives Date on File: 02/03/23 service: No Current occupational status: employed Cognitive needs: No Hearing needs: No Vision needs: No Questionnaire Thrive Questionnaire Date Thrive assessed: 07/18/24 JOEL-7 AMB Questionnaire JOEL-7 Date JOEL - 7 assessed: 07/18/24 Source: Developed by Drs. Tee Esqueda, Cami Betts, Zac Arellano and colleagues, with an educational naz from [employer]. Review of Systems Const All systems reviewed & are unremarkable except as noted in HPI and below Card Denies chest pain at rest, Denies chest pain with activity, Denies edema, Denies irregular heart rhythm, Denies claudication, Denies dyspnea, Denies dyspnea on exertion, Denies orthopnea, Denies paroxysmal nocturnal dyspnea and Denies slow heart rate Resp Denies cough, Denies dyspnea and Denies dyspnea on exertion GI Denies abdominal pain, Denies change in bowel habits, Denies excessive flatus, Denies nausea and Denies vomiting Physical exam (Primary Care) Vital Signs: Last Vital Signs BP 136/82 08/11/24 11:11 BMI result Body Mass Index 40.4 BMI Assessment/Plan discussion: High BMI High, discussed plan: lifestyle, weight reduction, dietary and physical activity Tobacco/Smoking Status: Tobacco use Status Tobacco use date assessed 07/18/24 08/11/24 11:16 Patient Tobacco Use Status Never used Tobacco 08/11/24 11:16 Tobacco use type Cigarette 08/11/24 11:16 e-Cigarette/Vaping Use Never Used 08/11/24 11:16 Thrive Assessment: Date of Thrive Assessment Date Thrive assessed 07/18/24 08/11/24 11:16 Const Nutritional Appearance: obese Resp Effort & Inspection: normal respiratory effort Auscultation: clear to auscultation bilaterally Cardio Jugular venous distension: no JVD Rate: regular rate Rhythm: regular rhythm Heart sounds: S1 normal heart sound present and S2 normal heart sound present Skin Other: Left leg wound, left leg hyperpigmentation Extrem General: Yes full ROM Coding Level of Care Code Est Pt Level 4 (33622) Complex EM visit Add On G2211 Diagnoses Venous stasis dermatitis of left lower extremity I87.2 Left leg cellulitis L03.116 Seizure R56.9 Diabetes mellitus with coincident hypertension E11.9; I10 PAF (paroxysmal atrial fibrillation) I48.0 Time Spent (min) 24 Assessment & Plan Assessment & Plan (1) Venous stasis dermatitis of left lower extremity: Code(s): I87.2 - Venous insufficiency (chronic) (peripheral) Category: Medical (2) Left leg cellulitis: Code(s): L03.116 - Cellulitis of left lower limb Category: Medical (3) Seizure: Code(s): R56.9 - Unspecified convulsions Category: Medical (4) Diabetes mellitus with coincident hypertension: Code(s): E11.9 - Type 2 diabetes mellitus without complications; I10 - Essential (primary) hypertension Category: Medical (5) PAF (paroxysmal atrial fibrillation): Code(s): I48.0 - Paroxysmal atrial fibrillation Category: Medical Plan I will prescribe an oral antibiotic and hydrocortisone cream for the leg infection and venous stasis dermatitis. Wrapping of the affected leg is recommended for symptom relief. Lovenox shots will be resent, and antihypertensive management with lisinopril will continue as the patient reports no issues. Continued monitoring and reporting of symptom improvement are advised, with further vascular referral if necessary. Continue all her current medications for seizures, diabetes mellitus and atrial fibrillation. Patient was informed and verbally consented to the use of an ambient scribe for clinic note documentation during this visit. I discussed with the patient the presentation of cellulitis and venous stasis dermatitis and emphasized the benefits of antibiotics and hydrocortisone cream for symptom management. The importance of leg wrapping to support circulation was also highlighted. Discontinuation of amlodipine was confirmed due to adequate blood pressure control with lisinopril. The patient was informed about the resending of Lovenox shots to manage blood coagulation. I advised continuation of her current medications and lifestyle changes to assist with weight management and blood pressure. Follow-up steps include reassessment if improvements are not observed, and a possible vascular consult if wrapping and medications do not lead to symptomatic relief. Medications: New hydrocortisone 1% (Anti-Itch (hydrocortisone)) 1 appl topical BID 2 weeks PRN 28.4 grams 0RF skin irritation cephalexin 500 mg PO Q12H 7 days 14 caps 0RF enoxaparin (Lovenox) 100 mg subcut DAILY 5 days 5 mL 1RF Patient Instructions: - Take the prescribed oral antibiotic for the leg infection. - Apply hydrocortisone cream as directed for skin relief. - Wrap the affected leg with recommended bandages to support circulation and reduce symptoms. - Monitor symptoms and seek medical attention if condition worsens or fails to improve. - Continue with lisinopril for blood pressure management. - Follow dietary restrictions and maintain regular walking for weight management. - Ensure the Lovenox shots prescription is filled to control blood thickness if necessary. - Follow up as instructed for ongoing care and symptom management.
--- OUTSIDE RECORDS SUMMARY | 2024-08-11 12:42 | XMS_ITS | Clinical Summary ---
Author Organization [facility] it Address [address] [place] [address] Care Team Providers Care Offset Label Rewinder Name Role Phone Unavailable Primary Care Provider Unavailabl e Encounters Date Type Department Care Team Description 05/31/2024 [facility] [address] [place] [phone] Syd Gastelum MD Epilepsy, unspecified, not intractable, without status epilepticus ([facility] V24, [facility] V28) 05/30/2024 [facility] [address] [place] [address] [phone] Syd Gastelum MD Epilepsy, unspecified, not intractable, without status epilepticus ([facility] V24, [facility] V28) 05/27/2024 [facility] [address] [place] [phone] Syd Gastelum MD Epilepsy, unspecified, not intractable, without status epilepticus ([facility] V24, [facility] V28) from Last 3 Months Social History [...]
== END 2024-08-11 11:30 | disposition home or self-care (01) ==
LOC: HO.HMCH 10:34
PROVIDERS: PCP Internal Medicine; Visit Provider Internal Medicine
DX: E11.9 Type 2 diabetes mellitus without complications (principal); R56.9 Unspecified convulsions; I48.0 Paroxysmal atrial fibrillation; I87.2 Venous insufficiency (chronic) (peripheral); L03.116 Cellulitis of left lower limb; I10 Essential (primary) hypertension

== ENCOUNTER 2024-08-11 12:42 | Outpatient (REF) | payer MEDICARE, SELFPAY ==
--- NOTE | ~2024-08-11 | US_ITS ---
CLINICAL HISTORY: R31.9 - Hematuria, unspecified US Renal Comparison: None Findings: Right kidney normal size and echotexture, 9.0 cm length. 2.5 cm and 2.3 cm anechoic right renal parapelvic cysts are present. Left kidney normal size and echotexture, 9.8 cm length. No collecting system dilatation of either kidney. IMPRESSION: 1. 2.5 cm and 2.3 cm simple right renal parapelvic cysts. 2. Normal sonographic appearance of the left kidney. This document has been electronically signed by: Franki Coles on 08/12/2024 09:27:06
--- OUTSIDE RECORDS SUMMARY | 2024-08-11 15:27 | XMS_ITS | Clinical Summary ---
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 Name Role Phone Unavailable Primary Care Provider Unavailabl e Encounters Date Type Department Care Team Description 05/31/2024 [facility] [address] [place] [phone] Syd Gastelum MD Epilepsy, unspecified, not intractable, without status epilepticus ([facility] V24, [facility] V28) 05/30/2024 [facility] [address] [place] [address] [phone] Syd Gastelum MD Epilepsy, unspecified, not intractable, without status epilepticus ([facility] V24, [facility] V28) 05/27/2024 [facility] [address] [place] [phone] Syd Gastelum MD Epilepsy, unspecified, not intractable, without status epilepticus ([facility] V24, [facility] V28) from Last 3 Months Social History [...]
--- OUTSIDE RECORDS SUMMARY | 2024-08-11 15:27 | XMS_ITS | Data Portability ---
Author Organization [place] - [facility], , [facility] Address [address] [place] [address] Assessment No assessment recorded. Plan of Treatment [...] ) ALT 42 U/L 30-65 Not Available [address], [address], 06/26/2008 02:36:06 11/29/1911/28/2005 hemog lobin A1C w/ mpg hemoglobin A1C 5.6 % 4.8-6. 0 goal: <7% in patie nts with diabe ernestine Not Available [address], [address], 06/26/2008 02:36:06 11/29/1911/28/2005 lipid panel cholesterol 245 mg/dL <200 mg/dL naz eable 200-2 39 mg/dL borde rline high >240 mg/dL high Not Available [address], [address], 06/26/2008 02:36:06 11/29/1911/28/2005 lipid panel triglyceride s 216 mg/dL <150 mg/dL helene l 150-1 99 mg/dL borde rline high 200-4 99 mg/dL high >500 mg/dL very high Not Available [address], [address], 06/26/2008 02:36:06 11/29/1911/28/2005 lipid panel direct HDL 62 mg/dL <40 mg/dL - major risk for CHD >60 mg/dL - negat danyell risk for CHD Not Available [address], [address], 06/26/2008 02:36:06 11/29/1911/28/2005 lipid panel direct LDL [...] r IS not necvinod faby. Not Available [address], [address], 06/26/2008 02:36:06 12/02/19 06 12/01/2005 mendez jha n time PT 41.1 secon ds 9.0-10 .4 high Not Available [address], [address], 06/26/2008 03:22:12 12/02/19 06 12/01/2005 proth radhabi n time INR 4.1 0.9-1. 1 high sugge sted value of 2.0-3 .0 for proph ylaxi s of venou s thomb osis, and preve ntion of embol ism. sugge sted value of 2.5-3 .5 for preve ntion of recur rent embol ism or patie nts with mecha nical prost hetic heart valve s. Not Available [address], [address], 06/26/2008 03:22:12 12/16/19 06 12/15/2005 proth rombi n time PT 23.6 secon ds 9.0-10 .4 high Not Available [address], [address], 06/26/2008 03:41:29 12/16/19 06 12/15/2005 proth rombi n time INR 2.4 0.9-1. 1 high sugge sted value of 2.0-3 .0 for proph ylaxi s of venou s thomb osis, and preve ntion of embol ism. sugge sted value of 2.5-3 .5 for preve ntion of recur rent embol ism or patie nts with mecha nical prost hetic heart valve s. Not Available [address], [address], 06/26/2008 03:41:29 12/20/19 06 12/19/2005 proth rombi n time PT 23.3 secon ds 9.0-10 .4 high Not Available [address], [address], 06/26/2008 03:27:20 12/20/19 06 12/19/2005 proth rombi n time INR 2.4 0.9-1. 1 high sugge sted value of 2.0-3 .0 for proph ylaxi s of venou s thomb osis, and preve ntion of embol ism. sugge sted value of 2.5-3 .5 for preve ntion of recur rent embol ism or patie nts with mecha nical prost hetic heart valve s. Not Available [address], [address], 06/26/2008 03:27:20 Result Notes None recorded. 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 Not Available [facility] 3 03:12:20 Thromboemb olic disorder 119565357 Active 2005 Not Available [facility] 3 03:12:20 Benign essential hypertensi on 5851512 Active 2003 Not Available [facility] 3 03:12:20 Atrial fibrillati on 64923920 Active 2004 Not Available [facility] 3 03:12:20 Phlebitis of the femoral vein 440470030 Active 2003 Not Available [facility] 3 03:12:20 Major depression , melancholi c type 275390448 Active 2005 Not Available [facility] 3 03:12:20 Common cold 33364410 Completed 200403/16/2013 Not Available [facility] 3 02:00:29 Hand joint pain 397388284 Completed 200403/16/2013 Not Available [facility] 3 02:02:43 Edema of extremity 375470529 Completed 200303/16/2013 Not Available [facility] 3 02:02:55 On examinatio n - a rash Completed 200403/16/2013 Not Available [facility] 3 02:00:49 Seizure 22437510 Active 2004 Not Available [facility] 3 03:12:20 Type 2 diabetes mellitus without complicati on 892265187 Active 2003 Not Available [facility] 3 03:12:20 Acute maxillary sinusitis 25790304 Completed 200403/16/2013 Not Available [facility] 3 02:01:43 Abnormal weight gain 653487450 Active 2003 Not Available [facility] 3 03:12:20 Generalize d abdominal pain 976557564 Completed 200303/16/2013 Not Available [facility] 3 02:02:06 Hyperlipid emia 46183985 Active 2004 Not Available [facility] 3 03:12:20 Dysuria 84695028 Completed 200303/16/2013 Not Available [facility] 3 02:02:00 Peripheral venous insufficie ncy 07242768 Active 2003 Not Available [facility] 3 03:12:20 Hypothyroi dism 74557438 Active 2004 Not Available [facility] 3 03:12:20 Streptococ samm sore throat 88550534 Completed 200303/16/2013 Not Available [facility] 3 02:02:03 Acute bronchitis 95359172 Completed 200403/16/2013 Not Available [facility] 3 02:01:37 Problem Notes None [...] influenza, unspecified formulation 4 completed Not Available [facility] 03/12/2011 05:21:07 influenza, unspecified formulation 4 completed Not Available [facility] 03/12/2011 05:21:07 influenza, unspecified formulation 5 completed Not Available [facility] 03/12/2011 05:21:29 influenza, unspecified formulation 5 completed Not Available [facility] 03/12/2011 05:21:29 Past Encounters Encounter ID Performer Location Encounter Start Date Encounter Closed Date Diagnosis/Indication Diagnosis SNOMED-CT Code Diagnosis ICD10 Code Diagnosis Note [id number] , [facility], OFFICE [address] [place] [address] 11/16/2003 12:14:30 11/22/2003 09:27:14 [id number] [facility], [place] [address] 12/22/2003 09:56:38 12/25/2003 15:40:32 [id number] [facility], OFFICE [address] [place] [address] 01/19/2004 09:54:48 01/22/2004 08:56:58 [id number] [facility], OFFICE [address] [place] [address] 02/02/2004 09:07:12 02/02/2004 12:21:32 [id number] [facility] - [facility] [address] [place] [address] 02/02/2004 07:26:36 02/02/2004 09:21:04 [id number] [facility], [address] [place] [address] 1 03/07/2004 08:50:31 03/07/2004 17:12:49 [id number] [facility], [place] [address] 04/05/2004 09:48:00 04/09/2004 08:47:39 [id number] FP [facility], OFFICE [address] [place] [address] 04/15/2004 15:03:12 04/15/2004 17:36:23 [id number] [facility], [place] [address] [place] [id number] 04/12/2004 10:53:34 05/17/2008 02:02:29 [id number] FP [facility], OFFICE [address] [place] [id number] 04/22/2004 14:57:11 04/23/2004 09:26:19 [id number] FP [facility], OFFICE [address] JASSOMAXIMDanilo [place] [address] 05/03/2004 10:24:03 05/06/2004 08:51:52 [id number] [facility], OFF[address] [place] [address] 1 05/20/2004 10:47:03 05/21/2004 08:35:20 [id number] FP [facility], OFF[address] [place]Dan[place] [address] 1 05/24/2004 11:19:37 05/27/2004 09:14:32 [id number] [facility], OFFICE [address] [place] [address] 05/27/2004 09:35:41 05/28/2004 09:13:28 [id number] [facility], OFFICE [address] [place] [address] 06/04/2004 08:58:14 06/04/2004 17:23:42 [id number] [facility], OFFICE [address] [place] [address] 06/18/2004 10:00:16 06/18/2004 16:52:29 [id number] [facility] - [facility] [address] [place] [address] 06/18/2004 07:34:32 06/18/2004 09:59:04 [id number] [facility], OFFICE [address] [place] [address] 06/27/2004 11:46:29 06/28/2004 09:09:13 [id number] [facility], [place] [address] 08/14/2004 11:47:27 08/15/2004 08:54:14 [id number] [facility], [place] [address] 09/19/2004 16:03:15 09/20/2004 16:06:43 [id number] [facility], [place] [address] 10/17/2004 08:40:42 10/17/2004 15:32:26 [id number] [facility] - [facility] [address] [place] [address] 10/17/2004 07:29:38 10/17/2004 09:02:48 [id number] [facility] [place] [address] 10/25/2004 10:49:52 11/01/2004 08:36:26 [id number] [facility], [place] [address] 11/19/2004 09:04:39 11/20/2004 08:14:19 [id number] [facility], OFFICE [address] [place] [address] [place] [address] 11/26/2004 08:55:17 11/26/2004 16:24:15 [id number] [facility], OFFICE [address] [place] [address] 12/03/2004 09:11:25 12/04/2004 14:38:40 [id number] [facility] , [facility] [address] [place] [address] 12/05/2004 10:50:31 12/05/2004 11:29:40 [id number] [facility], OFFICE [address] [place] [address] 12/20/2004 08:19:23 12/20/2004 15:41:51 [id number] [facility] - [facility] [address] [place] [id number] 12/20/2004 07:34:27 12/20/2004 08:05:52 [id number] [facility], OFFICE [address] [place] [address] 12/27/2004 09:49:39 12/27/2004 15:08:31 [id number] [facility], OFFICE [address] [place] [address] 12/31/2004 11:01:20 01/02/2005 10:36:32 [id number] [facility], OFFICE [address] [place] [address] 01/08/2005 10:14:21 01/08/2005 15:13:20 [id number] [facility], OFFICE [address] [place] [address] 01/16/2005 10:11:30 01/16/2005 15:05:45 [id number] [facility], OFFICE [address] [place] [address] 01/30/2005 10:31:42 01/30/2005 14:44:48 [id number] [facility], OFFICE [address] [place] [address] 02/18/2005 15:03:31 02/18/2005 17:29:51 [id number] [facility], OFFICE [address] [place] [address] 03/05/2005 14:53:36 03/05/2005 17:29:44 [id number] [facility], OFFICE [address] [place] [address] 03/06/2005 11:53:52 03/06/2005 15:47:59 [id number] [facility] - [facility] [address] [place] [address] 03/05/2005 15:26:52 03/05/2005 15:27:17 [id number] [facility], OFFICE [address] [place] [address] 03/18/2005 16:33:44 03/19/2005 08:28:27 [id number] [facility], OFFICE [address] [place] [address] 03/26/2005 14:01:26 03/26/2005 16:56:44 [id number] [facility], OFFICE [address] [place] [address] 04/25/2005 15:06:42 04/29/2005 10:24:01 [id number] [facility], OFFICE [address] [place] [address] 04/02/2005 13:33:35 04/02/2005 14:27:[id number] [place] [address] 05/15/2005 13:10:28 05/15/2005 13:11:25 [id number] [facility] [address] [place] [address] 06/02/2005 08:59:09 06/02/2005 09:00:10 [id number] [facility], OFFICE [address] [place] [address] 06/09/2005 09:48:13 06/09/2005 17:49:27 [id number] [facility] [address] [place] [address] 06/30/2005 07:39:14 06/30/2005 10:47:09 [id number] [place] [address] [place] [address] 07/15/2005 07:35:21 07/15/2005 10:38:06 [id number] [facility] [address] [place] [address] 08/05/2005 07:38:24 08/05/2005 10:34:53 [id number] [facility], OFFICE [address] [place] [address] 08/08/2005 11:53:47 08/08/2005 14:52:47 [id number] [facility], OFFICE [address] [place] [address] 08/11/2005 10:19:48 08/11/2005 15:05:14 [id number] [facility], OFFICE [address] [place] [address] 08/18/2005 10:57:06 08/18/2005 15:15:34 [id number] [facility], OFFICE [address] [place] [address] 08/25/2005 11:48:03 08/25/2005 17:40:40 [id number] [facility], OFFICE [address] [place] [address] 09/17/2005 11:31:19 09/17/2005 15:17:53 [id number] FP [facility], OFFICE [address] [place] [address] 10/09/2005 16:05:18 10/10/2005 16:24:20 [id number] [facility], OFFICE [address] [place] [address] 10/20/2005 09:54:51 10/20/2005 17:30:28 [id number] [facility], OFFICE [address] [place] [address] 11/17/2005 10:54:13 11/17/2005 17:50:24 [id number] [facility] [address] [place] [address] 11/28/2005 07:30:03 11/28/2005 08:43:26 [id number] [facility], OFFICE [address] [place] [address] 12/01/2005 10:50:57 05/17/2008 02:02:29 [id number] LAB - [facility] [address] [place] [address] 12/01/2005 11:06:46 12/01/2005 11:07:08 [id number] FP [facility] OFFICE [address] [place] [address] 12/02/2005 09:40:49 12/02/2005 12:24:54 [id number] FP [facility], OFFICE [address] [place] [address] 12/05/2005 10:52:16 12/08/2005 09:32:36 [id number] FP [facility], OFFICE [address] [place] [address] 12/10/2005 14:20:32 12/10/2005 17:21:[id number] [facility], OFFICE [address] [place] [address] 12/12/2005 10:12:02 12/12/2005 13:55:19 [id number] [facility] [address] [place] [address] 12/15/2005 07:56:58 12/15/2005 10:52:40 [id number] [facility] [address] [place] [address] 12/19/2005 09:58:38 12/19/2005 09:58:49 Health Concerns Section Related Observation LastModified by Organization Detai ls LastModified Time None Recorded Concern Status LastModified by Organization Details LastModified Time None Recorded Advance Directives Directive None Recorded Payers Encounter Date Sequence Insurance Name Policy Number Policy Arce Covered Member ID Arce Member ID Guarantor Name 12/05/2005 1 MEDICARE B: [employer] MEDICARE Mary Jane [facility] [id number] 1 12/10/2005 1 MEDICARE B: [employer] MEDICARE Mary Jane [facility] [id number] 1 12/12/2005 1 MEDICARE B: [employer] MEDICARE Mary Jane [facility] [id number] 1 12/15/2005 1 MEDICARE B: [employer] MEDICARE Mary Jane [facility] [id number] 1 12/19/2005 1 MEDICARE B: [employer] MEDICARE Mary Jane [facility] [id number] 1 OBGyn Episode No OBEpisode recorded.
== END 2024-08-11 12:43 | disposition home or self-care (01) ==
LOC: HO.US 12:42
PROVIDERS: PCP Internal Medicine; Visit Provider Internal Medicine
DX: R31.9 Hematuria, unspecified (principal)
CPT/HCPCS: 76775

== ENCOUNTER → 2024-08-11 12:44 | Outpatient (BNV) | payer MEDICARE, SELFPAY | PROVIDERS: PCP Internal Medicine; Visit Provider Radiology Vascular & Interventional Radiology | DX: R31.9 Hematuria, unspecified (principal); N28.1 Cyst of kidney, acquired | CPT/HCPCS: 76775 ==

== ENCOUNTER 2024-08-17 13:51 | Outpatient (AMB) | payer MEDICARE, SELFPAY ==
[2024-08-17 14:04] LABS: ~PT, ~INR - Anti Coag Clinic 1.2 (0.9-1.1)
--- NOTE | 2024-08-17 14:05 | MHC.OFFVISCO ---
Intake Intake Visit Reasons: Anticoagulation Allergies shrimp [SHRIMP] Allergy (Mild, Verified 08/17/24 13:57) HIVES diltiazem Adverse Reaction (Severe, Uncoded 08/17/24 13:57) feet pain, swelling Medication List - Last Reconciled 08/17/24 by Bhakti Baez RN ammonium lactate 12% 1 appl topical BID amoxicillin 500 mg PO BID 7 days apple cider vinegar PO BID atorvastatin 40 mg PO DAILY blood sugar diagnostic (Accu-Chek Guide test strips) As directed 2 times per day blood-glucose meter TEST 2 TIMES DAILY blood-glucose meter (Accu-Chek Guide Glucose Meter) As directed cephalexin 500 mg PO Q12H 7 days cyanocobalamin (vitamin B-12) 1,000 mcg PO DAILY esomeprazole magnesium (Nexium) 20 mg PO DAILY furosemide 20 mg PO DAILY glipizide 5 mg PO DAILY hydrocortisone 1% (Anti-Itch (hydrocortisone)) 1 appl topical BID PRN 2 weeks lancing device ACCU-CHECK DARLINE DEVICE lancing device (Adjustable Lancing Device) As directed lisinopril 40 mg PO DAILY 90 days phenytoin sodium extended 200 mg PO BID tizanidine 4 mg PO Q8H PRN warfarin 5 mg See Protocol PO DAILY Nursing Note INR 1.2-? out of therapeutic range of 2-3 Medications and supplements reviewed Patient status: denies missed dose Medications or supplements: cephalexin antibiotic Diet: appetite good Denies any signs and symptoms of bleeding or clotting or unusual bruising Bleeding, bruising, clotting discussed - aware risk of clotting Nutritional guidance given: no greens , eat reds to raise Dose: 7.5mg today, 5mg tomm F/U INR Date : thursday08/19/24? Patient verbalizing understanding of instructions given. pcp office called with low inr/dosing and f/u appt- ? lovenox. spoke to caro at 1415 composed note to pcp Anti-Coag Initial Assessment Social Hx Patient Tobacco Use Status: Never used Tobacco Tobacco use type: Cigarette alcohol intake: never Alcohol intake frequency: a few times a month Coding Level of Care Code Est Patient Level 1 Diagnoses Current use of anticoagulant therapy Z79.01 Results AMB INR Fingerstick AMB INR Fingerstick 1.2 Last Edit by Bhakti Baez RN on 08/17/24 14:17 interface delay AMB INR Fingerstick AMB INR Fingerstick 1.2 Last Edit by Bhakti Baez RN on 08/17/24 14:18 interface delay Assessment & Plan Assessment & Plan (1) Current use of anticoagulant therapy: Code(s): 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
--- OUTSIDE RECORDS SUMMARY | 2024-08-17 16:36 | XMS_ITS | Data Portability ---
Author Organization [place] - [facility], , [facility] Address [address] [place] [address] Assessment No assessment recorded. Plan of Treatment [...] ) ALT 42 U/L 30-65 Not Available [address], [address], 06/26/2008 02:36:06 11/29/1911/28/2005 hemog lobin A1C w/ mpg hemoglobin A1C 5.6 % 4.8-6. 0 goal: <7% in patie nts with diabe ernestine Not Available [address], [address], 06/26/2008 02:36:06 11/29/1911/28/2005 lipid panel cholesterol 245 mg/dL <200 mg/dL naz eable 200-2 39 mg/dL borde rline high >240 mg/dL high Not Available [address], [address], 06/26/2008 02:36:06 11/29/1911/28/2005 lipid panel triglyceride s 216 mg/dL <150 mg/dL helene l 150-1 99 mg/dL borde rline high 200-4 99 mg/dL high >500 mg/dL very high Not Available [address], [address], 06/26/2008 02:36:06 11/29/1911/28/2005 lipid panel direct HDL 62 mg/dL <40 mg/dL - major risk for CHD >60 mg/dL - negat danyell risk for CHD Not Available [address], [address], 06/26/2008 02:36:06 11/29/1911/28/2005 lipid panel direct LDL [...] r IS not necvinod faby. Not Available [address], [address], 06/26/2008 02:36:06 12/02/19 06 12/01/2005 mendez jha n time PT 41.1 secon ds 9.0-10 .4 high Not Available [address], [address], 06/26/2008 03:22:12 12/02/19 06 12/01/2005 proth radhabi n time INR 4.1 0.9-1. 1 high sugge sted value of 2.0-3 .0 for proph ylaxi s of venou s thomb osis, and preve ntion of embol ism. sugge sted value of 2.5-3 .5 for preve ntion of recur rent embol ism or patie nts with mecha nical prost hetic heart valve s. Not Available [address], [address], 06/26/2008 03:22:12 12/16/19 06 12/15/2005 proth rombi n time PT 23.6 secon ds 9.0-10 .4 high Not Available [address], [address], 06/26/2008 03:41:29 12/16/19 06 12/15/2005 proth rombi n time INR 2.4 0.9-1. 1 high sugge sted value of 2.0-3 .0 for proph ylaxi s of venou s thomb osis, and preve ntion of embol ism. sugge sted value of 2.5-3 .5 for preve ntion of recur rent embol ism or patie nts with mecha nical prost hetic heart valve s. Not Available [address], [address], 06/26/2008 03:41:29 12/20/19 06 12/19/2005 proth rombi n time PT 23.3 secon ds 9.0-10 .4 high Not Available [address], [address], 06/26/2008 03:27:20 12/20/19 06 12/19/2005 proth rombi n time INR 2.4 0.9-1. 1 high sugge sted value of 2.0-3 .0 for proph ylaxi s of venou s thomb osis, and preve ntion of embol ism. sugge sted value of 2.5-3 .5 for preve ntion of recur rent embol ism or patie nts with mecha nical prost hetic heart valve s. Not Available [address], [address], 06/26/2008 03:27:20 Result Notes None recorded. 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 Not Available [facility] 3 03:12:20 Thromboemb olic disorder 605793025 Active 2005 Not Available [facility] 3 03:12:20 Benign essential hypertensi on 8666691 Active 2003 Not Available [facility] 3 03:12:20 Atrial fibrillati on 72705902 Active 2004 Not Available [facility] 3 03:12:20 Phlebitis of the femoral vein 719799661 Active 2003 Not Available [facility] 3 03:12:20 Major depression , melancholi c type 346902524 Active 2005 Not Available [facility] 3 03:12:20 Common cold 07799389 Completed 200403/16/2013 Not Available [facility] 3 02:00:29 Hand joint pain 481988234 Completed 200403/16/2013 Not Available [facility] 3 02:02:43 Edema of extremity 961333365 Completed 200303/16/2013 Not Available [facility] 3 02:02:55 On examinatio n - a rash Completed 200403/16/2013 Not Available [facility] 3 02:00:49 Seizure 92150130 Active 2004 Not Available [facility] 3 03:12:20 Type 2 diabetes mellitus without complicati on 135391461 Active 2003 Not Available [facility] 3 03:12:20 Acute maxillary sinusitis 11316585 Completed 200403/16/2013 Not Available [facility] 3 02:01:43 Abnormal weight gain 512347011 Active 2003 Not Available [facility] 3 03:12:20 Generalize d abdominal pain 981617612 Completed 200303/16/2013 Not Available [facility] 3 02:02:06 Hyperlipid emia 38629910 Active 2004 Not Available [facility] 3 03:12:20 Dysuria 98921804 Completed 200303/16/2013 Not Available [facility] 3 02:02:00 Peripheral venous insufficie ncy 14621938 Active 2003 Not Available [facility] 3 03:12:20 Hypothyroi dism 14502391 Active 2004 Not Available [facility] 3 03:12:20 Streptococ samm sore throat 29803448 Completed 200303/16/2013 Not Available [facility] 3 02:02:03 Acute bronchitis 12794465 Completed 200403/16/2013 Not Available [facility] 3 02:01:37 Problem Notes None recorded. Medical [...] influenza, unspecified formulation 4 completed Not Available [facility] 03/12/2011 05:21:07 influenza, unspecified formulation 4 completed Not Available [facility] 03/12/2011 05:21:07 influenza, unspecified formulation 5 completed Not Available [facility] 03/12/2011 05:21:29 influenza, unspecified formulation 5 completed Not Available [facility] 03/12/2011 05:21:29 Past Encounters Encounter ID Performer Location Encounter Start Date Encounter Closed Date Diagnosis/Indication Diagnosis SNOMED-CT Code Diagnosis ICD10 Code Diagnosis Note [id number] , [facility] [place] [address] [place] [address] 11/16/2003 12:14:30 11/22/2003 09:27:14 [id number] [facility] [place] [address] 12/22/2003 09:56:38 12/25/2003 15:40:32 [id number] [facility] [place] [address] [place] [address] 01/19/2004 09:54:48 01/22/2004 08:56:58 [id number] [facility] [place] [address] [place] [address] 02/02/2004 09:07:12 02/02/2004 12:21:32 [id number] [facility] [place] [address] [place] [address] 02/02/2004 07:26:36 02/02/2004 09:21:04 [id number] [facility] [place] [place] [address] [place] [address] 1 03/07/2004 08:50:31 03/07/2004 17:12:49 [id number] [facility] [place] [address] 04/05/2004 09:48:00 04/09/2004 08:47:39 [id number] [facility] [place] [place] [address] [place] [id number] 1 04/15/2004 15:03:12 04/15/2004 17:36:23 [id number] [facility] [place] [place] [address] [place] [address] 04/12/2004 10:53:34 05/17/2008 02:02:29 [id number] [facility] [place] [place] [place] [address] 1 04/22/2004 14:57:11 04/23/2004 09:26:19 [id number] [facility] [place] [address] [place] [address] 1 05/03/2004 10:24:03 05/06/2004 08:51:52 [id number] [facility] [place] [place] [address] [place] [address] 1 05/20/2004 10:47:03 05/21/2004 08:35:20 [id number] [facility] [place] [place] [address] [place] [address] 1 05/24/2004 11:19:37 05/27/2004 09:14:32 [id number] [facility] [place] [address] [place] [address] 05/27/2004 09:35:41 05/28/2004 09:13:28 [id number] [facility] [place] [address] [place] [address] 06/04/2004 08:58:14 06/04/2004 17:23:42 [id number] [facility] [place] [address] [place] [address] 06/18/2004 10:00:16 06/18/2004 16:52:29 [id number] [facility] [place] [address] [place] [address] 06/18/2004 07:34:32 06/18/2004 09:59:04 [id number] [facility] [place] [place] [address] [place] [address] 06/27/2004 11:46:29 06/28/2004 09:09:13 [id number] [facility] [place] [place] [address] 08/14/2004 11:47:27 08/15/2004 08:54:14 [id number] [facility] [place] [address] 09/19/2004 16:03:15 09/20/2004 16:06:43 [id number] [facility] [place] [place] [address] 10/17/2004 08:40:42 10/17/2004 15:32:26 [id number] [facility] [place] [address] [place] [address] 10/17/2004 07:29:38 10/17/2004 09:02:48 [id number] [facility] [place] [address] 10/25/2004 10:49:52 11/01/2004 08:36:26 [id number] [facility] [place] [address] 11/19/2004 09:04:39 11/20/2004 08:14:19 [id number] [facility] [place] OFF[facility] [address] [place] [address] [place] [address] 11/26/2004 08:55:17 11/26/2004 16:24:15 [id number] [facility] [place] [address] [place] [address] 12/03/2004 09:11:25 12/04/2004 14:38:40 [id number] [facility] , [facility] [place] [address] [place] [address] 12/05/2004 10:50:31 12/05/2004 11:29:40 [id number] [facility] [place] [place] [address] [place] [address] 1 12/20/2004 08:19:23 12/20/2004 15:41:51 [id number] [facility] [place] [address] [place] [address] 12/20/2004 07:34:27 12/20/2004 08:05:52 [id number] [facility] [place] [address] [place] [address] 12/27/2004 09:49:39 12/27/2004 15:08:31 [id number] [facility] [place] OFFICE [address] [place] [address] 1 12/31/2004 11:01:20 01/02/2005 10:36:32 [id number] [facility] [place] [address] [place] [address] 01/08/2005 10:14:21 01/08/2005 15:13:20 [id number] [facility] [place] [address] [place] [address] 01/16/2005 10:11:30 01/16/2005 15:05:45 [id number] [facility] [place] [address] [place] [address] 01/30/2005 10:31:42 01/30/2005 14:44:48 [id number] [facility] [place] [address] [place] [address] 02/18/2005 15:03:31 02/18/2005 17:29:51 [id number] [facility] [place] [address] [place] [address] 03/05/2005 14:53:36 03/05/2005 17:29:44 [id number] [facility] [place] [address] [place] [address] 03/06/2005 11:53:52 03/06/2005 15:47:59 [id number] [facility] [place] [address] [place] [address] 03/05/2005 15:26:52 03/05/2005 15:27:17 [id number] [facility] [place] [place] [address] [place] [address] 03/18/2005 16:33:44 03/19/2005 08:28:27 [id number] [facility] [place] OFFICE [address] [place] [address] 1 03/26/2005 14:01:26 03/26/2005 16:56:44 [id number] [facility] [place] [address] [place] [address] 04/25/2005 15:06:42 04/29/2005 10:24:01 [id number] [facility] [place] [address] [place] [address] 04/02/2005 13:33:35 04/02/2005 14:27:[id number] [place] [address] 05/15/2005 13:10:28 05/15/2005 13:11:25 [id number] [facility] [address] [place] [address] 06/02/2005 08:59:09 06/02/2005 09:00:10 [id number] [facility] [place] [place] [address] [place] [address] 06/09/2005 09:48:13 06/09/2005 17:49:27 [id number] [facility] [address] [place] [address] 06/30/2005 07:39:14 06/30/2005 10:47:09 [id number] [place] [address] [place] [address] 07/15/2005 07:35:21 07/15/2005 10:38:06 [id number] [facility] [address] [place] [address] 08/05/2005 07:38:24 08/05/2005 10:34:53 [id number] [facility] [place] [address] [place] [address] 1 08/08/2005 11:53:47 08/08/2005 14:52:47 [id number] [facility] [place] [address] [place] [address] 1 08/11/2005 10:19:48 08/11/2005 15:05:14 [id number] [facility] [place] [address] [place] [address] 1 08/18/2005 10:57:06 08/18/2005 15:15:34 [id number] [facility] [place] [address] [place] [address] 08/25/2005 11:48:03 08/25/2005 17:40:40 [id number] [facility] [place] [address] [place] [address] 09/17/2005 11:31:19 09/17/2005 15:17:53 [id number] [facility] [place] [address] [place] [address] 1 10/09/2005 16:05:18 10/10/2005 16:24:20 [id number] [facility] [place] [address] [place] [address] 10/20/2005 09:54:51 10/20/2005 17:30:28 [id number] [facility] [place] [address] [place] [address] 11/17/2005 10:54:13 11/17/2005 17:50:24 [id number] [facility] [place] [address] [place] [address] 1 11/28/2005 07:30:03 11/28/2005 08:43:26 [id number] [facility] [place] [address] [place] [address] 1 12/01/2005 10:50:57 05/17/2008 02:02:29 [id number] [facility] - [facility] [place] [address] [place] [address] 1 12/01/2005 11:06:46 12/01/2005 11:07:08 [id number] [facility] [place] [facility] [address] [place] [address] 12/02/2005 09:40:49 12/02/2005 12:24:54 [id number] [facility] [place] [address] [place] [address] 1 12/05/2005 10:52:16 12/08/2005 09:32:36 [id number] [facility] [place] [address] [place] [address] 12/10/2005 14:20:32 12/10/2005 17:21:31 [id number] [facility], OFFICE [address] [place] [address] 1 12/12/2005 10:12:02 12/12/2005 13:55:19 [id number] [facility] [address] [place] [address] 12/15/2005 07:56:58 12/15/2005 10:52:40 [id number] [facility] [address] [place] [address] 1 12/19/2005 09:58:38 12/19/2005 09:58:49 Health Concerns Section Related Observation LastModified by Organization Detai ls LastModified Time None Recorded Concern Status LastModified by Organization Details LastModified Time None Recorded Advance Directives Directive None Recorded Payers Encounter Date Sequence Insurance Name Policy Number Policy Arce Covered Member ID Arce Member ID Guarantor Name 12/05/2005 1 MEDICARE B: [employer] MEDICARE [facility] [id number] 1 12/10/2005 1 MEDICARE B: [employer] MEDICARE [facility] [id number] 1 12/12/2005 1 MEDICARE B: [employer] MEDICARE [facility] [id number] 1 12/15/2005 1 MEDICARE B: [employer] MEDICARE [facility] [id number] 1 12/19/2005 1 MEDICARE B: [employer] MEDICARE [facility] [id number] 1 OBGyn Episode No OBEpisode recorded.
--- OUTSIDE RECORDS SUMMARY | 2024-08-17 16:36 | XMS_ITS | Clinical Summary ---
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 Name Role Phone Unavailable Primary Care Provider Unavailabl e Encounters Date Type Department Care Team Description 05/31/2024 [facility] [address] [place] [phone] Syd Gastelum MD Epilepsy, unspecified, not intractable, without status epilepticus ([facility] V24, [facility] V28) 05/30/2024 [facility] [address] [place] [phone] Syd Gastelum MD Epilepsy, unspecified, not intractable, without status epilepticus ([facility] V24, [facility] V28) 05/27/2024 [facility] [address] [place] [phone] Syd Gastelum MD Epilepsy, unspecified, not intractable, without status epilepticus ([facility] V24, [facility] V28) from Last 3 Months [...]
== END 2024-08-17 14:38 | disposition home or self-care (01) ==
LOC: HO.ACS 13:51
PROVIDERS: PCP Internal Medicine; Visit Provider Internal Medicine Medical Oncology
DX: Z79.01 Long term (current) use of anticoagulants (principal)

== ENCOUNTER → 2024-08-17 13:51 | Outpatient (BNVA) | payer MEDICARE, SELFPAY | PROVIDERS: PCP Internal Medicine; Visit Provider Internal Medicine Medical Oncology | DX: Z86.718 Personal history of other venous thrombosis and embolism (principal); Z79.01 Long term (current) use of anticoagulants; Z51.81 Encounter for therapeutic drug level monitoring | CPT/HCPCS: 85610; 99211 ==

== ENCOUNTER 2024-08-19 13:01 | Outpatient (AMB) | payer MEDICARE, SELFPAY ==
[2024-08-19 13:35] LABS: Prothrombin Time Whole Bld POC 25.8 sec (11.1-13.5); ~PT, ~INR - Anti Coag Clinic 2.2 (0.9-1.1)
--- OUTSIDE RECORDS SUMMARY | 2024-08-19 13:45 | XMS_ITS | Data Portability ---
Author Organization [place] - [facility], , [facility] Address [address] [place] [address] Assessment No assessment recorded. Plan of Treatment [...] ) ALT 42 U/L 30-65 Not Available [address], [address], 06/26/2008 02:36:06 11/29/1911/28/2005 hemog lobin A1C w/ mpg hemoglobin A1C 5.6 % 4.8-6. 0 goal: <7% in patie nts with diabe ernestine Not Available [address], [address], 06/26/2008 02:36:06 11/29/1911/28/2005 lipid panel cholesterol 245 mg/dL <200 mg/dL naz eable 200-2 39 mg/dL borde rline high >240 mg/dL high Not Available [address], [address], 06/26/2008 02:36:06 11/29/1911/28/2005 lipid panel triglyceride s 216 mg/dL <150 mg/dL helene l 150-1 99 mg/dL borde rline high 200-4 99 mg/dL high >500 mg/dL very high Not Available [address], [address], 06/26/2008 02:36:06 11/29/1911/28/2005 lipid panel direct HDL 62 mg/dL <40 mg/dL - major risk for CHD >60 mg/dL - negat danyell risk for CHD Not Available [address], [address], 06/26/2008 02:36:06 11/29/1911/28/2005 lipid panel direct LDL [...] r IS not necvinod faby. Not Available [address], [address], 06/26/2008 02:36:06 12/02/19 06 12/01/2005 mendez jha n time PT 41.1 secon ds 9.0-10 .4 high Not Available [address], [address], 06/26/2008 03:22:12 12/02/19 06 12/01/2005 proth radhabi n time INR 4.1 0.9-1. 1 high sugge sted value of 2.0-3 .0 for proph ylaxi s of venou s thomb osis, and preve ntion of embol ism. sugge sted value of 2.5-3 .5 for preve ntion of recur rent embol ism or patie nts with mecha nical prost hetic heart valve s. Not Available [address], [address], 06/26/2008 03:22:12 12/16/19 06 12/15/2005 proth rombi n time PT 23.6 secon ds 9.0-10 .4 high Not Available [address], [address], 06/26/2008 03:41:29 12/16/19 06 12/15/2005 proth rombi n time INR 2.4 0.9-1. 1 high sugge sted value of 2.0-3 .0 for proph ylaxi s of venou s thomb osis, and preve ntion of embol ism. sugge sted value of 2.5-3 .5 for preve ntion of recur rent embol ism or patie nts with mecha nical prost hetic heart valve s. Not Available [address], [address], 06/26/2008 03:41:29 12/20/19 06 12/19/2005 proth rombi n time PT 23.3 secon ds 9.0-10 .4 high Not Available [address], [address], 06/26/2008 03:27:20 12/20/19 06 12/19/2005 proth rombi n time INR 2.4 0.9-1. 1 high sugge sted value of 2.0-3 .0 for proph ylaxi s of venou s thomb osis, and preve ntion of embol ism. sugge sted value of 2.5-3 .5 for preve ntion of recur rent embol ism or patie nts with mecha nical prost hetic heart valve s. Not Available [address], [address], 06/26/2008 03:27:20 Result Notes None recorded. 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 Not Available [facility] 3 03:12:20 Thromboemb olic disorder 361773584 Active 2005 Not Available [facility] 3 03:12:20 Benign essential hypertensi on 1014683 Active 2003 Not Available [facility] 3 03:12:20 Atrial fibrillati on 44302241 Active 2004 Not Available [facility] 3 03:12:20 Phlebitis of the femoral vein 958272238 Active 2003 Not Available [facility] 3 03:12:20 Major depression , melancholi c type 629992689 Active 2005 Not Available [facility] 3 03:12:20 Common cold 27379707 Completed 200403/16/2013 Not Available [facility] 3 02:00:29 Hand joint pain 102892613 Completed 200403/16/2013 Not Available [facility] 3 02:02:43 Edema of extremity 796894635 Completed 200303/16/2013 Not Available [facility] 3 02:02:55 On examinatio n - a rash Completed 200403/16/2013 Not Available [facility] 3 02:00:49 Seizure 90459220 Active 2004 Not Available [facility] 3 03:12:20 Type 2 diabetes mellitus without complicati on 937486088 Active 2003 Not Available [facility] 3 03:12:20 Acute maxillary sinusitis 75199172 Completed 200403/16/2013 Not Available [facility] 3 02:01:43 Abnormal weight gain 442628013 Active 2003 Not Available [facility] 3 03:12:20 Generalize d abdominal pain 378094365 Completed 200303/16/2013 Not Available [facility] 3 02:02:06 Hyperlipid emia 15341755 Active 2004 Not Available [facility] 3 03:12:20 Dysuria 51607172 Completed 200303/16/2013 Not Available [facility] 3 02:02:00 Peripheral venous insufficie ncy 03149048 Active 2003 Not Available [facility] 3 03:12:20 Hypothyroi dism 39131441 Active 2004 Not Available [facility] 3 03:12:20 Streptococ samm sore throat 15431551 Completed 200303/16/2013 Not Available [facility] 3 02:02:03 Acute bronchitis 32652912 Completed 200403/16/2013 Not Available [facility] 3 02:01:37 Problem Notes None recorded. Medical [...] unspecified formulation 4 completed Not Available [facility] 03/12/2011 05:21:07 influenza, unspecified formulation 4 completed Not Available [facility] 03/12/2011 05:21:07 influenza, unspecified formulation 5 completed Not Available [facility] 03/12/2011 05:21:29 influenza, unspecified formulation 5 completed Not Available [facility] 03/12/2011 05:21:29 Past Encounters Encounter ID Performer Location Encounter Start Date Encounter Closed Date Diagnosis/Indication Diagnosis SNOMED-CT Code Diagnosis ICD10 Code Diagnosis Note [id number] , [facility] [place] [address] [place] [address] 11/16/2003 12:14:30 11/22/2003 09:27:14 [id number] [facility] [place] [address] 12/22/2003 09:56:38 12/25/2003 15:40:32 [id number] [facility] [address] [place] [address] 01/19/2004 09:54:48 01/22/2004 08:56:58 [id number] [facility] [address]ICE [address] [place] [address] 02/02/2004 09:07:12 02/02/2004 12:21:32 [id number] [facility] [address] [place] [address] 02/02/2004 07:26:36 02/02/2004 09:21:04 [id number] [facility] [address] [address] [place] [address] 03/07/2004 08:50:31 03/07/2004 17:12:49 [id number] [facility] [address] 04/05/2004 09:48:00 04/09/2004 08:47:39 [id number] FP [facility] [address] [address] [place] [address] 04/15/2004 15:03:12 04/15/2004 17:36:23 [id number] [facility] [place] [address] [place] [id number] 04/12/2004 10:53:34 05/17/2008 02:02:29 [id number] FP [facility] [place] [place] [address] 04/22/2004 14:57:11 04/23/2004 09:26:19 [id number] FP [facility] OFF[address] [place] [address] 05/03/2004 10:24:03 05/06/2004 08:51:52 [id number] [facility] OFF[address] [place] [id number] 1 05/20/2004 10:47:03 05/21/2004 08:35:20 [id number] FP [facility] OFF[address] [place] [id number] 05/24/2004 11:19:37 05/27/2004 09:14:32 [id number] [facility] OFFICE [address] [place] [address] 05/27/2004 09:35:41 05/28/2004 09:13:28 [id number] [facility] OFFICE [address] [place] [address] 06/04/2004 08:58:14 06/04/2004 17:23:42 [id number] [facility] OFFICE [address] [place] [address] 06/18/2004 10:00:16 06/18/2004 16:52:29 [id number] [facility] [address] [place] [address] 06/18/2004 07:34:32 06/18/2004 09:59:04 [id number] [facility] OFFICE [address] [place] [address] 06/27/2004 11:46:29 06/28/2004 09:09:13 [id number] [facility] [address] 08/14/2004 11:47:27 08/15/2004 08:54:14 [id number] [facility] [address] 09/19/2004 16:03:15 09/20/2004 16:06:43 [id number] [facility] [address] 10/17/2004 08:40:42 10/17/2004 15:32:26 [id number] [facility] [address] [place] [address] 10/17/2004 07:29:38 10/17/2004 09:02:48 [id number] [facility] [place] [address] 10/25/2004 10:49:52 11/01/2004 08:36:26 [id number] [facility] [address] 11/19/2004 09:04:39 11/20/2004 08:14:19 [id number] [facility] OFFICE [address] [place] [address] [place] [address] 11/26/2004 08:55:17 11/26/2004 16:24:15 [id number] [facility] OFFICE [address] [place] [address] 12/03/2004 09:11:25 12/04/2004 14:38:40 [id number] [facility] , [facility] [address] [place] [address] 12/05/2004 10:50:31 12/05/2004 11:29:40 [id number] [facility] OFFICE [address] [place] [address] 12/20/2004 08:19:23 12/20/2004 15:41:51 [id number] [facility] [address] [place] [id number] 12/20/2004 07:34:27 12/20/2004 08:05:52 [id number] [facility] OFFICE [address] [place] [address] 12/27/2004 09:49:39 12/27/2004 15:08:31 [id number] [facility] OFFICE [address] [place] [address] 12/31/2004 11:01:20 01/02/2005 10:36:32 [id number] [facility] OFFICE [address] [place] [address] 01/08/2005 10:14:21 01/08/2005 15:13:20 [id number] [facility] OFFICE [address] [place] [address] 01/16/2005 10:11:30 01/16/2005 15:05:45 [id number] [facility] OFFICE [address] [place] [address] 01/30/2005 10:31:42 01/30/2005 14:44:48 [id number] [facility] OFFICE [address] [place] [address] 02/18/2005 15:03:31 02/18/2005 17:29:51 [id number] [facility] OFFICE [address] [place] [address] 03/05/2005 14:53:36 03/05/2005 17:29:44 [id number] [facility] OFFICE [address] [place] [address] 03/06/2005 11:53:52 03/06/2005 15:47:59 [id number] [facility] [address] [place] [address] 03/05/2005 15:26:52 03/05/2005 15:27:17 [id number] [facility] OFFICE [address] [place] [address] 03/18/2005 16:33:44 03/19/2005 08:28:27 [id number] [facility] OFFICE [address] [place] [address] 1 03/26/2005 14:01:26 03/26/2005 16:56:44 [id number] [facility] OFFICE [address] [place] [address] 04/25/2005 15:06:42 04/29/2005 10:24:01 [id number] [facility] OFFICE [address] [place] [address] 04/02/2005 13:33:35 04/02/2005 14:27:[id number] [place] [address] 05/15/2005 13:10:28 05/15/2005 13:11:25 [id number] [facility] [address] [place] [address] 06/02/2005 08:59:09 06/02/2005 09:00:10 [id number] [facility] OFFICE [address] [place] [address] 06/09/2005 09:48:13 06/09/2005 17:49:27 [id number] [facility] [address] [place] [address] 06/30/2005 07:39:14 06/30/2005 10:47:09 [id number] [place] [address] [place] [address] 07/15/2005 07:35:21 07/15/2005 10:38:06 [id number] [facility] [address] [place] [address] 08/05/2005 07:38:24 08/05/2005 10:34:53 [id number] [facility] OFFICE [address] [place] [address] 08/08/2005 11:53:47 08/08/2005 14:52:47 [id number] [facility] OFFICE [address] [place] [address] 08/11/2005 10:19:48 08/11/2005 15:05:14 [id number] [facility] OFFICE [address] [place] [address] 08/18/2005 10:57:06 08/18/2005 15:15:34 [id number] [facility] OFFICE [address] [place] [address] 08/25/2005 11:48:03 08/25/2005 17:40:40 [id number] [facility]ICE [address] [place] [address] 09/17/2005 11:31:19 09/17/2005 15:17:53 [id number] FP [facility]ICE [address] [place] [address] 10/09/2005 16:05:18 10/10/2005 16:24:20 [id number] [facility]ICE [address] [place] [id number] 10/20/2005 09:54:51 10/20/2005 17:30:28 [id number] [facility] OFFICE [address] [place] [address] 1 11/17/2005 10:54:13 11/17/2005 17:50:24 [id number] [facility] [address] [place] [address] 1 11/28/2005 07:30:03 11/28/2005 08:43:26 [id number] [facility] OFFICE [address] [place] [address] 1 12/01/2005 10:50:57 05/17/2008 02:02:29 [id number] [facility] - [facility] [address] [place] [address] 1 12/01/2005 11:06:46 12/01/2005 11:07:08 [id number] FP [facility] OFF[facility] [address] [place] [address] 1 12/02/2005 09:40:49 12/02/2005 12:24:54 [id number] FP [facility] OFFICE [address] [place] [address] 12/05/2005 10:52:16 12/08/2005 09:32:36 [id number] FP [facility] OFFICE [address] [place] [address] 12/10/2005 14:20:32 12/10/2005 17:21:31 [id number] [facility], OFFICE [address] [place] [id number] 12/12/2005 10:12:02 12/12/2005 13:55:19 [id number] [facility] [address] [place] [address] 12/15/2005 07:56:58 12/15/2005 10:52:40 [id number] [facility] [address] [place] [address] 12/19/2005 09:58:38 12/19/2005 09:58:49 Health Concerns Section Related Observation LastModified by Organization Detai ls LastModified Time None Recorded Concern Status LastModified by Organization Details LastModified Time None Recorded Advance Directives Directive None Recorded Payers Encounter Date Sequence Insurance Name Policy Number Policy Arce Covered Member ID Arce Member ID Guarantor Name 12/05/2005 1 MEDICARE B: [employer] MEDICARE [facility] [id number] 1 12/10/2005 1 MEDICARE B: [employer] MEDICARE [facility] [id number] 12/12/2005 1 MEDICARE B: [employer] MEDICARE [facility] [id number] 12/15/2005 1 MEDICARE B: [employer] MEDICARE [facility] [id number] 1 12/19/2005 1 MEDICARE B: [employer] MEDICARE [facility] [id number] 1 OBGyn Episode No OBEpisode recorded.
--- OUTSIDE RECORDS SUMMARY | 2024-08-19 13:45 | XMS_ITS | Clinical Summary ---
Author Organization [facility] it Address [address] [place] [address] Care Team Providers Care Plastic Cutter Name Role Phone Unavailable Primary Care Provider Unavailabl e Encounters Date Type Department Care Team Description 05/31/2024 [facility] [address] [place] [phone] Syd Gastelum MD Epilepsy, unspecified, not intractable, without status epilepticus ([facility] V24, [facility] V28) 05/30/2024 [facility] [address] [place] [phone] Syd Gastelum MD Epilepsy, unspecified, not intractable, without status epilepticus ([facility] V24, [facility] V28) 05/27/2024 [facility] [address] [place] [phone] Syd Gastelum MD Epilepsy, unspecified, not intractable, without status epilepticus ([facility] V24, [facility] V28) from Last 3 Months Social History [...]
--- NOTE | 2024-08-19 13:47 | MHC.OFFVISCO ---
Intake Intake Visit Reasons: Anticoagulation Allergies shrimp [SHRIMP] Allergy (Mild, Verified 08/19/24 13:22) HIVES diltiazem Adverse Reaction (Severe, Uncoded 08/19/24 13:22) feet pain, swelling Medication List - Last Reconciled 08/19/24 by Lubna Layne RN ammonium lactate 12% 1 appl topical BID atorvastatin 40 mg PO DAILY blood sugar diagnostic (Accu-Chek Guide test strips) As directed 2 times per day blood-glucose meter TEST 2 TIMES DAILY blood-glucose meter (Accu-Chek Guide Glucose Meter) As directed cyanocobalamin (vitamin B-12) 1,000 mcg PO DAILY esomeprazole magnesium (Nexium) 20 mg PO DAILY furosemide 20 mg PO DAILY glipizide 5 mg PO DAILY hydrocortisone 1% (Anti-Itch (hydrocortisone)) 1 appl topical BID PRN 2 weeks lancing device ACCU-CHECK DARLINE DEVICE lancing device (Adjustable Lancing Device) As directed lisinopril 40 mg PO DAILY 90 days phenytoin sodium extended 200 mg PO BID tizanidine 4 mg PO Q8H PRN warfarin 5 mg See Protocol PO DAILY Nursing Note INR: 2.2 in therapeutic range Medications and supplements reviewed * pt amlodipine d/x 08/11/24 could lower INR now that she is off it, *she occ would take boost or ensure - stopped that 2 weeks ago - it was explained that they have 25% daily amt of vit k and count as a green that can lower the INR. She would have in place of a meal. states she was told she has cysts on her kidneys- to have f/u with renal and urology in near future Denies any signs and symptoms of bleeding or bruising or clotting. Bleeding, bruising, clotting discussed Nutritional guidance given - avoid greens today then resume usual diet eating a mix of fruits and vegetables Dose: 2.5mg x 1 day/ 5mg x 6 days F/U INR: 08/22/24Thursday due to labile INR +lovneox tomorrow for 2 INR is in range prior to stopping lovenox Patient verbalizes understanding of instructions given Anti-Coag Initial Assessment Social Hx Patient Tobacco Use Status: Never used Tobacco Tobacco use type: Cigarette alcohol intake: never Alcohol intake frequency: a few times a month Coding Level of Care Code Est Patient Level 1 Diagnoses Current use of anticoagulant therapy Z79.01 Results AMB INR Fingerstick AMB INR Fingerstick 2.2 Last Edit by Lubna Layne RN on 08/19/24 13:37 Manual entry Assessment & Plan Assessment & Plan (1) Current use of anticoagulant therapy: Code(s): Z79.01 - long term care administrator (current) use of 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 Medications: New vitamins A,C,U-cexi-rrbimj (PreserVision AREDS) PO cholecalciferol (vitamin D3) PO
== END 2024-08-19 13:55 | disposition home or self-care (01) ==
LOC: HO.ACS 13:01
PROVIDERS: PCP Internal Medicine; Visit Provider Internal Medicine Medical Oncology
DX: Z79.01 Long term (current) use of anticoagulants (principal)

== ENCOUNTER → 2024-08-19 13:01 | Outpatient (BNVA) | payer MEDICARE, SELFPAY | PROVIDERS: PCP Internal Medicine; Visit Provider Internal Medicine Medical Oncology | DX: Z86.718 Personal history of other venous thrombosis and embolism (principal); Z79.01 Long term (current) use of anticoagulants; Z51.81 Encounter for therapeutic drug level monitoring | CPT/HCPCS: 85610; 99211 ==

== ENCOUNTER 2024-08-22 10:39 | Outpatient (AMB) | payer MEDICARE, SELFPAY ==
[2024-08-22 10:50] LABS: Prothrombin Time Whole Bld POC 22.8 sec (11.1-13.5); ~PT, ~INR - Anti Coag Clinic 1.9 (0.9-1.1)
--- NOTE | 2024-08-22 11:02 | MHC.OFFVISCO ---
Intake Intake Visit Reasons: Anticoagulation Allergies shrimp [SHRIMP] Allergy (Mild, Verified 08/22/24 10:44) HIVES diltiazem Adverse Reaction (Severe, Uncoded 08/22/24 10:44) feet pain, swelling Medication List - Last Reconciled 08/22/24 by Lubna Layne, RN ammonium lactate 12% 1 appl topical BID atorvastatin 40 mg PO DAILY blood sugar diagnostic (Accu-Chek Guide test strips) As directed 2 times per day blood-glucose meter TEST 2 TIMES DAILY blood-glucose meter (Accu-Chek Guide Glucose Meter) As directed cholecalciferol (vitamin D3) PO cyanocobalamin (vitamin B-12) 1,000 mcg PO DAILY esomeprazole magnesium (Nexium) 20 mg PO DAILY furosemide 20 mg PO DAILY glipizide 5 mg PO DAILY hydrocortisone 1% (Anti-Itch (hydrocortisone)) 1 appl topical BID PRN 2 weeks lancing device ACCU-CHECK DARLINE DEVICE lancing device (Adjustable Lancing Device) As directed lisinopril 40 mg PO DAILY 90 days phenytoin sodium extended 200 mg PO BID tizanidine 4 mg PO Q8H PRN vitamins A,C,J-tack-tnixhv (PreserVision AREDS) PO warfarin 5 mg See Protocol PO DAILY Nursing Note INR: 1.9 almost in therapeutic range Medications and supplements reviewed pt has 2 cysts on her kidney and is concerned- she has a urology appt in October 2024- she would like to see a kidney specialis - a telephone number was provided to her and she was enc to discuss with them and her PCP Denies any signs and symptoms of bleeding or bruising or clotting. Bleeding, bruising, clotting discussed Nutritional guidance given - avoid greens today Dose: 7.5mg today then 5mg daily F/U INR: this week- 08/25/2024 to make sure reaches her range Patient verbalizes understanding of instructions given with read back Anti-Coag Initial Assessment Social Hx Patient Tobacco Use Status: Never used Tobacco Tobacco use type: Cigarette alcohol intake: never Alcohol intake frequency: a few times a month Coding Level of Care Code Est Patient Level 1 Diagnoses Current use of anticoagulant therapy Z79.01 Assessment & Plan Assessment & Plan (1) Current use of anticoagulant therapy: Code(s): Z79.01 - snf (current) use of 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
--- OUTSIDE RECORDS SUMMARY | 2024-08-22 12:37 | XMS_ITS | Clinical Summary ---
Author Organization [facility] Address [address] [place] [address] Phone Care Team Providers Care Gleason Gear Generator Name Role Phone Unavailable Primary Care Provider Unavailabl e Encounters Date Type Department Care Team Description 05/31/2024 [facility]ostic [address] [place] [phone] Syd Gastelum MD Epilepsy, unspecified, not intractable, without status epilepticus ([facility] [place], [facility] V28) 05/30/2024 [facility] [address] [place] [phone] Syd Gastelum MD Epilepsy, unspecified, not intractable, without status epilepticus ([facility] [place], [facility] V28) 05/27/2024 [facility] [address] [place] [phone] Syd Gastelum MD Epilepsy, unspecified, not intractable, without status epilepticus ([facility] [place], [facility] V28) from Last 3 Months Social [...] - 1-dose 75+ series) 2021 COVID-19 Vaccine (2023-2 5 season) 2023 Depression Screening 05/26/2024 Falls [...]
--- OUTSIDE RECORDS SUMMARY | 2024-08-22 12:37 | XMS_ITS | Data Portability ---
Author Organization [place] - [facility], , [facility] Address [address] [place] [address] Assessment No assessment recorded. Plan of Treatment [...] ) ALT 42 U/L 30-65 Not Available [address], [address], 06/26/2008 02:36:06 11/29/1911/28/2005 hemog lobin A1C w/ mpg hemoglobin A1C 5.6 % 4.8-6. 0 goal: <7% in patie nts with diabe ernestine Not Available [address], [address], 06/26/2008 02:36:06 11/29/1911/28/2005 lipid panel cholesterol 245 mg/dL <200 mg/dL naz eable 200-2 39 mg/dL borde rline high >240 mg/dL high Not Available [address], [address], 06/26/2008 02:36:06 11/29/1911/28/2005 lipid panel triglyceride s 216 mg/dL <150 mg/dL helene l 150-1 99 mg/dL borde rline high 200-4 99 mg/dL high >500 mg/dL very high Not Available [address], [address], 06/26/2008 02:36:06 11/29/1911/28/2005 lipid panel direct HDL 62 mg/dL <40 mg/dL - major risk for CHD >60 mg/dL - negat danyell risk for CHD Not Available [address], [address], 06/26/2008 02:36:06 11/29/1911/28/2005 lipid panel direct LDL [...] r IS not necvinod faby. Not Available [address], [address], 06/26/2008 02:36:06 12/02/19 06 12/01/2005 mendez jha n time PT 41.1 secon ds 9.0-10 .4 high Not Available [address], [address], 06/26/2008 03:22:12 12/02/19 06 12/01/2005 proth radhabi n time INR 4.1 0.9-1. 1 high sugge sted value of 2.0-3 .0 for proph ylaxi s of venou s thomb osis, and preve ntion of embol ism. sugge sted value of 2.5-3 .5 for preve ntion of recur rent embol ism or patie nts with mecha nical prost hetic heart valve s. Not Available [address], [address], 06/26/2008 03:22:12 12/16/19 06 12/15/2005 proth rombi n time PT 23.6 secon ds 9.0-10 .4 high Not Available [address], [address], 06/26/2008 03:41:29 12/16/19 06 12/15/2005 proth rombi n time INR 2.4 0.9-1. 1 high sugge sted value of 2.0-3 .0 for proph ylaxi s of venou s thomb osis, and preve ntion of embol ism. sugge sted value of 2.5-3 .5 for preve ntion of recur rent embol ism or patie nts with mecha nical prost hetic heart valve s. Not Available [address], [address], 06/26/2008 03:41:29 12/20/19 06 12/19/2005 proth rombi n time PT 23.3 secon ds 9.0-10 .4 high Not Available [address], [address], 06/26/2008 03:27:20 12/20/19 06 12/19/2005 proth rombi n time INR 2.4 0.9-1. 1 high sugge sted value of 2.0-3 .0 for proph ylaxi s of venou s thomb osis, and preve ntion of embol ism. sugge sted value of 2.5-3 .5 for preve ntion of recur rent embol ism or patie nts with mecha nical prost hetic heart valve s. Not Available [address], [address], 06/26/2008 03:27:20 Result Notes None recorded. 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 2005 Not Available [facility] 3 03:12:20 Benign essential hypertensi on 3612370 Active 2003 Not Available [facility] 3 03:12:20 Atrial fibrillati on 95041491 Active 2004 Not Available [facility] 3 03:12:20 Phlebitis of the femoral vein 816037513 Active 2003 Not Available [facility] 3 03:12:20 Major depression , melancholi c type 421151204 Active 2005 Not Available [facility] 3 03:12:20 Common cold 89645841 Completed 200403/16/2013 [facility] Available [facility] 3 02:00:29 Pain of joint of hand 561713961 Completed 200403/16/2013 Not Available [facility] 3 02:02:43 Edema of extremity 633944214 Completed 200303/16/2013 [facility] Available [facility] 3 02:02:55 On examinatio n - a rash Completed 200403/16/2013 Not Available [facility] 3 02:00:49 Seizure 34861802 Active 2004 Not Available [facility] 3 03:12:20 Type 2 diabetes mellitus without complicati on 606191988 Active 2003 Not Available [facility] 3 03:12:20 Acute maxillary sinusitis 15049036 Completed 200403/16/2013 Not Available [facility] 3 02:01:43 Abnormal weight gain 887526264 Active 2003 Not Available [facility] 3 03:12:20 Generalize d abdominal pain 197858287 Completed 200303/16/2013 Not Available [facility] 3 02:02:06 Hyperlipid emia 77163346 Active 2004 Not Available [facility] 3 03:12:20 Dysuria 76813205 Completed 200303/16/2013 Not Available [facility] 3 02:02:00 Peripheral venous insufficie ncy 14451690 Active 2003 Not Available [facility] 3 03:12:20 Hypothyroi dism 39584723 Active 2004 Not Available [facility] 3 03:12:20 Streptococ samm sore throat 67203799 Completed 200303/16/2013 Not Available [facility] 3 02:02:03 Acute bronchitis 12301649 Completed 200403/16/2013 Not Available [facility] 3 02:01:37 Problem Notes None recorded. [...] influenza, unspecified formulation 4 completed Not Available [facility] 03/12/2011 05:21:07 influenza, unspecified formulation 4 completed Not Available [facility] 03/12/2011 05:21:07 influenza, unspecified formulation 5 completed Not Available [facility] 03/12/2011 05:21:29 influenza, unspecified formulation 5 completed Not Available [facility] 03/12/2011 05:21:29 Past Encounters Encounter ID Performer Location Encounter Start Date Encounter Closed Date Diagnosis/Indication Diagnosis SNOMED-CT Code Diagnosis ICD10 Code Diagnosis Note [id number] , [facility] [place] [address] [place] [address] 11/16/2003 12:14:30 11/22/2003 09:27:14 [id number] [facility] [place] [address] [place] [address] 12/22/2003 09:56:38 12/25/2003 15:40:32 [id number] [facility] [place] [address] [place] [address] 01/19/2004 09:54:48 01/22/2004 08:56:58 [id number] [facility] [place] [address] [place] [address] 02/02/2004 09:07:12 02/02/2004 12:21:32 [id number] [facility] [address] [place] [address] 02/02/2004 07:26:36 02/02/2004 09:21:04 [id number] [facility] [address] 03/07/2004 08:50:31 03/07/2004 17:12:49 [id number] [facility] [place] [address] [place] [address] 04/05/2004 09:48:00 04/09/2004 08:47:39 [id number] [facility] [place] [address] [place] [id number] 04/15/2004 15:03:12 04/15/2004 17:36:23 [id number] [facility] [address] 04/12/2004 10:53:34 05/17/2008 02:02:29 [id number] [facility] [place] [address] [place] [id number] 04/22/2004 14:57:11 04/23/2004 09:26:19 [id number] [facility] [place] [address] [place] [id number] 05/03/2004 10:24:03 05/06/2004 08:51:52 [id number] [facility] [place] [address] [place] [id number] 05/20/2004 10:47:03 05/21/2004 08:35:20 [id number] [facility] [place] [address] [place] [id number] 05/24/2004 11:19:37 05/27/2004 09:14:32 [id number] [facility] [place] [address] [place] [id number] 05/27/2004 09:35:41 05/28/2004 09:13:28 [id number] [facility] [place] [address] [place] [address] 06/04/2004 08:58:14 06/04/2004 17:23:42 [id number] [facility] [place] [address] [place] [address] 06/18/2004 10:00:16 06/18/2004 16:52:29 [id number] [facility] [address] [place] [id number] 06/18/2004 07:34:32 06/18/2004 09:59:04 [id number] [facility] [place] [address] [place] [id number] 06/27/2004 11:46:29 06/28/2004 09:09:13 [id number] [facility] [place] [address] [place] [address] 08/14/2004 11:47:27 08/15/2004 08:54:14 [id number] [facility] [address] 09/19/2004 16:03:15 09/20/2004 16:06:43 [id number] [facility] [id number] 10/17/2004 08:40:42 10/17/2004 15:32:26 [id number] [facility] [address] [place] [id number] 10/17/2004 07:29:38 10/17/2004 09:02:48 [id number] [facility] [place] [address] [place] [address] 10/25/2004 10:49:52 11/01/2004 08:36:26 [id number] [facility] [address] 11/19/2004 09:04:39 11/20/2004 08:14:19 [id number] [facility] [place] [address] [place] [id number] 11/26/2004 08:55:17 11/26/2004 16:24:15 [id number] [facility] [place] [address] [place] [address] 12/03/2004 09:11:25 12/04/2004 14:38:40 [id number] [facility] , [facility] [address] [place] [id number] 12/05/2004 10:50:31 12/05/2004 11:29:40 [id number] [facility] [place] [address] [place] [id number] 12/20/2004 08:19:23 12/20/2004 15:41:51 [id number] [facility] [address] [place] [id number] 12/20/2004 07:34:27 12/20/2004 08:05:52 [id number] [facility] [place] [address] [place] [address] 12/27/2004 09:49:39 12/27/2004 15:08:31 [id number] [facility] [place] [address] [place] [id number] 12/31/2004 11:01:20 01/02/2005 10:36:32 [id number] [facility] [place] [address] [place] [id number] 01/08/2005 10:14:21 01/08/2005 15:13:20 [id number] [facility] [address] [place] [id number] 01/16/2005 10:11:30 01/16/2005 15:05:45 [id number] [facility] [place] [address] [place] [address] 01/30/2005 10:31:42 01/30/2005 14:44:48 [id number] [facility] [place] [address] [place] [address] 02/18/2005 15:03:31 02/18/2005 17:29:51 [id number] [facility] [place] [address] [place] [id number] 03/05/2005 14:53:36 03/05/2005 17:29:44 [id number] [facility] [place] [address] [place] [id number] 03/06/2005 11:53:52 03/06/2005 15:47:59 [id number] [facility] [address] [place] [address] 03/05/2005 15:26:52 03/05/2005 15:27:17 [id number] [facility] [place] [address] [place] [address] 03/18/2005 16:33:44 03/19/2005 08:28:27 [id number] [facility] [place] [address] [place] [address] 03/26/2005 14:01:26 03/26/2005 16:56:44 [id number] [facility] [place] [address] [place] [id number] 04/25/2005 15:06:42 04/29/2005 10:24:01 [id number] [facility] [place] [address] [place] [id number] 04/02/2005 13:33:35 04/02/2005 14:27:[id number] [place] [address] 05/15/2005 13:10:28 05/15/2005 13:11:25 [id number] [facility] [address] [place] [id number] 06/02/2005 08:59:09 06/02/2005 09:00:10 [id number] [facility] [place] [address] [place] [id number] 06/09/2005 09:48:13 06/09/2005 17:49:27 [id number] [place] [address] [place] [address] 06/30/2005 07:39:14 06/30/2005 10:47:09 [id number] [place] [address] [place] [id number] 07/15/2005 07:35:21 07/15/2005 10:38:06 [id number] [facility] [address] [place] [address] 08/05/2005 07:38:24 08/05/2005 10:34:53 [id number] [facility] [place] [address] [place] [id number] 08/08/2005 11:53:47 08/08/2005 14:52:47 [id number] [facility] [place] [address] [place] [address] 08/11/2005 10:19:48 08/11/2005 15:05:14 [id number] [facility] [place] [address] [place] [address] 08/18/2005 10:57:06 08/18/2005 15:15:34 [id number] [facility] [place] [address] [place] [address] 08/25/2005 11:48:03 08/25/2005 17:40:40 [id number] [facility] [place] [address] [place] [id number] 09/17/2005 11:31:19 09/17/2005 15:17:53 [id number] [facility] [address] [place] [id number] 10/09/2005 16:05:18 10/10/2005 16:24:20 [id number] [facility] [place] [address] [place] [address] 10/20/2005 09:54:51 10/20/2005 17:30:28 [id number] [facility] [address] [place] [address] 11/17/2005 10:54:13 11/17/2005 17:50:24 [id number] [facility] [address] [place] [id number] 11/28/2005 07:30:03 11/28/2005 08:43:26 [id number] [facility] [place] [address] [place] [address] 12/01/2005 10:50:57 05/17/2008 02:02:29 [id number] [facility] - [facility] [address] [place] [id number] 12/01/2005 11:06:46 12/01/2005 11:07:08 [id number] [facility] [place] [address] [place] [id number] 12/02/2005 09:40:49 12/02/2005 12:24:54 [id number] [facility] [address] [place] [address] 12/05/2005 10:52:16 12/08/2005 09:32:36 [id number] [facility] [place] [address] [place] [address] 12/10/2005 14:20:32 12/10/2005 17:21:31 [id number] , [facility] [place] [address] [place] [address] 12/12/2005 10:12:02 12/12/2005 13:55:19 [id number] [facility] [address] [place] [id number] 12/15/2005 07:56:58 12/15/2005 10:52:40 [id number] [facility] [address] [place] [address] 1 12/19/2005 09:58:38 12/19/2005 09:58:49 Health Concerns [...] [employer] - [employer] MEDICARE [facility] [id number] 1 12/10/2005 1 MEDICARE B: [place] [employer] MEDICARE [facility] [id number] 1 12/12/2005 1 MEDICARE B: [place] [employer] MEDICARE [facility] [id number] 1 12/15/2005 1 MEDICARE B: [place] [employer] - [employer] MEDICARE [facility] [id number] 1 12/19/2005 1 MEDICARE B: [place] [employer] - [employer] MEDICARE [facility] [id number] 1 OBGyn Episode No OBEpisode recorded.
== END 2024-08-22 11:08 | disposition home or self-care (01) ==
LOC: HO.ACS 10:39
PROVIDERS: PCP Internal Medicine; Visit Provider Internal Medicine Medical Oncology
DX: Z79.01 Long term (current) use of anticoagulants (principal)

== ENCOUNTER → 2024-08-22 10:39 | Outpatient (BNVA) | payer MEDICARE, SELFPAY | PROVIDERS: PCP Internal Medicine; Visit Provider Internal Medicine Medical Oncology | DX: Z86.718 Personal history of other venous thrombosis and embolism (principal); Z79.01 Long term (current) use of anticoagulants; Z51.81 Encounter for therapeutic drug level monitoring | CPT/HCPCS: 85610; 99211 ==

== ENCOUNTER 2024-08-25 13:03 | Outpatient (AMB) | payer MEDICARE, SELFPAY ==
[2024-08-25 13:13] LABS: Prothrombin Time Whole Bld POC 37.9 sec (11.1-13.5); ~PT, ~INR - Anti Coag Clinic 3.2 (0.9-1.1)
--- NOTE | 2024-08-25 13:24 | MHC.OFFVISCO ---
Intake Intake Visit Reasons: Anticoagulation Allergies shrimp [SHRIMP] Allergy (Mild, Verified 08/25/24 13:07) HIVES diltiazem Adverse Reaction (Severe, Uncoded 08/25/24 13:07) feet pain, swelling Medication List - Last Reconciled 08/25/24 by Clover Granados, RN ammonium lactate 12% 1 appl topical BID atorvastatin 40 mg PO DAILY blood sugar diagnostic (Accu-Chek Guide test strips) As directed 2 times per day blood-glucose meter TEST 2 TIMES DAILY blood-glucose meter (Accu-Chek Guide Glucose Meter) As directed cholecalciferol (vitamin D3) PO cyanocobalamin (vitamin B-12) 1,000 mcg PO DAILY esomeprazole magnesium (Nexium) 20 mg PO DAILY furosemide 20 mg PO DAILY glipizide 5 mg PO DAILY hydrocortisone 1% (Anti-Itch (hydrocortisone)) 1 appl topical BID PRN 2 weeks lancing device ACCU-CHECK DARLINE DEVICE lancing device (Adjustable Lancing Device) As directed lisinopril 40 mg PO DAILY 90 days phenytoin sodium extended 200 mg PO BID tizanidine 4 mg PO Q8H PRN vitamins A,C,D-gudc-pxfxfq (PreserVision AREDS) PO warfarin 5 mg See Protocol PO DAILY Nursing Note INR: 3.2 in therapeutic range of 2-3 Medications and supplements reviewed No changes in health, diet, medications, or supplements, Denies any signs and symptoms of bleeding or bruising or clotting. Bleeding, bruising, clotting discussed Nutritional guidance given Dose: 5mg daily F/U INR: 1 week Patient verbalizes understanding of instructions given Anti-Coag Initial Assessment Social Hx Patient Tobacco Use Status: Never used Tobacco Tobacco use type: Cigarette alcohol intake: never Alcohol intake frequency: a few times a month Coding Level of Care Code Est Patient Level 1 Diagnoses Current use of anticoagulant therapy Z79.01 Results AMB INR Fingerstick AMB INR Fingerstick 3.2 Last Edit by Clover Granados RN on 08/25/24 13:17 interface delay Assessment & Plan Assessment & Plan (1) Current use of anticoagulant therapy: Code(s): Z79.01 - [facility] (current) use of 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
--- OUTSIDE RECORDS SUMMARY | 2024-08-25 15:29 | XMS_ITS | Clinical Summary ---
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 Name Role Phone Unavailable Primary Care Provider Unavailabl e Encounters Date Type Department Care Team Description 05/31/2024 [facility] [address] [place] [phone] Syd Gastelum MD Epilepsy, unspecified, not intractable, without status epilepticus ([facility] V24, [facility] V28) 05/30/2024 [facility] [address] [place] [phone] Syd Gastelum MD Epilepsy, unspecified, not intractable, without status epilepticus ([facility] V24, [facility] V28) from [...]
--- OUTSIDE RECORDS SUMMARY | 2024-08-25 15:29 | XMS_ITS | Data Portability ---
Author Organization MD - [facility], , [facility] Address [address] [place] [address] Assessment No assessment recorded. Plan of Treatment [...] ) ALT 42 U/L 30-65 Not Available [address], [address], 06/26/2008 02:36:06 11/29/1911/28/2005 hemog lobin A1C w/ mpg hemoglobin A1C 5.6 % 4.8-6. 0 goal: <7% in patie nts with diabe ernestine Not Available [address], [address], 06/26/2008 02:36:06 11/29/1911/28/2005 lipid panel cholesterol 245 mg/dL <200 mg/dL naz eable 200-2 39 mg/dL borde rline high >240 mg/dL high Not Available [address], [address], 06/26/2008 02:36:06 11/29/1911/28/2005 lipid panel triglyceride s 216 mg/dL <150 mg/dL helene l 150-1 99 mg/dL borde rline high 200-4 99 mg/dL high >500 mg/dL very high Not Available [address], [address], 06/26/2008 02:36:06 11/29/1911/28/2005 lipid panel direct HDL 62 mg/dL <40 mg/dL - major risk for CHD >60 mg/dL - negat danyell risk for CHD Not Available [address], [address], 06/26/2008 02:36:06 11/29/1911/28/2005 lipid panel direct LDL [...] r IS not necvinod faby. Not Available [address], [address], 06/26/2008 02:36:06 12/02/19 06 12/01/2005 mendez jha n time PT 41.1 secon ds 9.0-10 .4 high Not Available [address], [address], 06/26/2008 03:22:12 12/02/19 06 12/01/2005 proth radhabi n time INR 4.1 0.9-1. 1 high sugge sted value of 2.0-3 .0 for proph ylaxi s of venou s thomb osis, and preve ntion of embol ism. sugge sted value of 2.5-3 .5 for preve ntion of recur rent embol ism or patie nts with mecha nical prost hetic heart valve s. Not Available [address], [address], 06/26/2008 03:22:12 12/16/19 06 12/15/2005 proth rombi n time PT 23.6 secon ds 9.0-10 .4 high Not Available [address], [address], 06/26/2008 03:41:29 12/16/19 06 12/15/2005 proth rombi n time INR 2.4 0.9-1. 1 high sugge sted value of 2.0-3 .0 for proph ylaxi s of venou s thomb osis, and preve ntion of embol ism. sugge sted value of 2.5-3 .5 for preve ntion of recur rent embol ism or patie nts with mecha nical prost hetic heart valve s. Not Available [address], [address], 06/26/2008 03:41:29 12/20/19 06 12/19/2005 proth rombi n time PT 23.3 secon ds 9.0-10 .4 high Not Available [address], [address], 06/26/2008 03:27:20 12/20/19 06 12/19/2005 proth rombi n time INR 2.4 0.9-1. 1 high sugge sted value of 2.0-3 .0 for proph ylaxi s of venou s thomb osis, and preve ntion of embol ism. sugge sted value of 2.5-3 .5 for preve ntion of recur rent embol ism or patie nts with mecha nical prost hetic heart valve s. Not Available [address], [address], 06/26/2008 03:27:20 Result Notes None recorded. 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 Active 2005 Not Available [facility] 3 03:12:20 Benign essential hypertensi on 0647373 Active 2003 Not Available [facility] 3 03:12:20 Atrial fibrillati on 30225590 Active 2004 Not Available [facility] 3 03:12:20 Phlebitis of the femoral vein 016338834 Active 2003 Not Available [facility] 3 03:12:20 Major depression , melancholi c type 467513775 Active 2005 Not Available [facility] 3 03:12:20 Common cold 29158403 Completed 200403/16/2013 Not Available [facility] 3 02:00:29 Pain of joint of hand 477574723 Completed 200403/16/2013 Not Available [facility] 3 02:02:43 Edema of extremity 036789893 Completed 200303/16/2013 Not Available [facility] 3 02:02:55 On examinatio n - a rash Completed 200403/16/2013 Not Available [facility] 3 02:00:49 Seizure 85382039 Active 2004 Not Available [facility] 3 03:12:20 Type 2 diabetes mellitus without complicati on 820253065 Active 2003 Not Available [facility] 3 03:12:20 Acute maxillary sinusitis 06621742 Completed 200403/16/2013 Not Available [facility] 3 02:01:43 Abnormal weight gain 728486349 Active 2003 Not Available [facility] 3 03:12:20 Generalize d abdominal pain 367711263 Completed 200303/16/2013 Not Available [facility] 3 02:02:06 Hyperlipid emia 27624139 Active 2004 Not Available [facility] 3 03:12:20 Dysuria 16823930 Completed 200303/16/2013 Not Available [facility] 3 02:02:00 Peripheral venous insufficie ncy 25333550 Active 2003 Not Available [facility] 3 03:12:20 Hypothyroi dism 57120492 Active 2004 Not Available [facility] 3 03:12:20 Streptococ samm sore throat 73361198 Completed 200303/16/2013 Not Available [facility] 3 02:02:03 Acute bronchitis 33618936 Completed 200403/16/2013 Not Available [facility] 3 02:01:37 Problem Notes None recorded. [...] influenza, unspecified formulation 4 completed Not Available [facility] 03/12/2011 05:21:07 influenza, unspecified formulation 4 completed Not Available [facility] 03/12/2011 05:21:07 influenza, unspecified formulation 5 completed Not Available [facility] 03/12/2011 05:21:29 influenza, unspecified formulation 5 completed Not Available [facility] 03/12/2011 05:21:29 Past Encounters Encounter ID Performer Location Encounter Start Date Encounter Closed Date Diagnosis/Indication Diagnosis SNOMED-CT Code Diagnosis ICD10 Code Diagnosis Note [id number] Gricelda Layne MD , [facility] [place] [address] [place] [id number] 11/16/2003 12:14:30 11/22/2003 09:27:14 [id number] MD RODEGR Raza, [address] [place] [id number] 12/22/2003 09:56:38 12/25/2003 15:40:32 [id number] MD RODGER Raza, [address] [place] [id number] 01/19/2004 09:54:48 01/22/2004 08:56:58 [id number] FP TREATMENT NURSE [facility], [facility] [place] OFFICE [address] [place] [id number] 02/02/2004 09:07:12 02/02/2004 12:21:32 [id number] [facility] - [address] [place] [id number] 02/02/2004 07:26:36 02/02/2004 09:21:04 [id number] FP TREATMENT NURSE [facility], [address] [place] [id number] 1 03/07/2004 08:50:31 03/07/2004 17:12:49 [id number] Gricelda Layne MD , [address] [place] [address] 04/05/2004 09:48:00 04/09/2004 08:47:39 [id number] FP TREATMENT NURSE [facility], [address] [place] [id number] 04/15/2004 15:03:12 04/15/2004 17:36:23 [id number] Gricelda Layne MD , [address] [place] [id number] 04/12/2004 10:53:34 05/17/2008 02:02:29 [id number] FP TREATMENT NURSE [facility], [address] [place] [id number] 04/22/2004 14:57:11 04/23/2004 09:26:19 [id number] MD RODGER Raza, [address] [place] [id number] 05/03/2004 10:24:03 05/06/2004 08:51:52 [id number] Reid Ya FP, [address] [place] [id number] 05/20/2004 10:47:03 05/21/2004 08:35:20 [id number] Yarelis MADISON FP, [facility] [place] [address] [place] [id number] 05/24/2004 11:19:37 05/27/2004 09:14:32 [id number] FP TREATMENT NURSE [facility], [facility] [address] [place] [id number] 05/27/2004 09:35:41 05/28/2004 09:13:28 [id number] Gricelda Layne MD FP, [facility] [place] [address] [place] [id number] 06/04/2004 08:58:14 06/04/2004 17:23:42 [id number] FP TREATMENT NURSE [facility], [facility] [address] [place] [id number] 06/18/2004 10:00:16 06/18/2004 16:52:29 [id number] [facility] - [address] [place] [id number] 06/18/2004 07:34:32 06/18/2004 09:59:04 [id number] Gricelda Layne MD FP, [facility] [address] [place] [id number] 06/27/2004 11:46:29 06/28/2004 09:09:13 [id number] FP TREATMENT NURSE [facility], [facility] [address] [place] [id number] 08/14/2004 11:47:27 08/15/2004 08:54:14 [id number] Gricelda Layne MD FP, [facility] [place] [address] [place] [address] [place] [id number] 09/19/2004 16:03:15 09/20/2004 16:06:43 [id number] FP TREATMENT NURSE [facility], [facility] [address] [place] [id number] 10/17/2004 08:40:42 10/17/2004 15:32:26 [id number] [facility] - [facility] [address] [place] [id number] 10/17/2004 07:29:38 10/17/2004 09:02:48 [id number] Gricelda Layne MD FP, [facility] [place] [address] [place] [id number] 10/25/2004 10:49:52 11/01/2004 08:36:26 [id number] FP TREATMENT NURSE [facility], [facility] [place] [address] [place] [id number] 11/19/2004 09:04:39 11/20/2004 08:14:19 [id number] FP TREATMENT NURSE [facility], [facility] [place] [address] [place] [id number] 11/26/2004 08:55:17 11/26/2004 16:24:15 [id number] FP TREATMENT NURSE [facility], [facility] [place] [address] [place] [id number] 12/03/2004 09:11:25 12/04/2004 14:38:40 [id number] [facility] MAM[facility] [employer]olog[facility] Radiology , [facility] [address] [place] [id number] 12/05/2004 10:50:31 12/05/2004 11:29:40 [id number] FP TREATMENT NURSE [facility], [facility] [place] [address] [place] [id number] 12/20/2004 08:19:23 12/20/2004 15:41:51 [id number] [facility] - [facility] [address] [place] [id number] 12/20/2004 07:34:27 12/20/2004 08:05:52 [id number] FP TREATMENT NURSE [facility], [facility] [place] [address] [place] [id number] 12/27/2004 09:49:39 12/27/2004 15:08:31 [id number] MD RODGER Raza, [facility] [address] [place] [id number] 12/31/2004 11:01:20 01/02/2005 10:36:32 [id number] FP TREATMENT NURSE [facility], [facility] [place] [address] [place] [id number] 01/08/2005 10:14:21 01/08/2005 15:13:20 [id number] FP TREATMENT NURSE [facility], [facility] [address] [place] [id number] 01/16/2005 10:11:30 01/16/2005 15:05:45 [id number] FP TREATMENT NURSE [facility], [facility] [address] [place] [id number] 01/30/2005 10:31:42 01/30/2005 14:44:48 [id number] [facility] FP, [facility] [address] [place] [id number] 02/18/2005 15:03:31 02/18/2005 17:29:51 [id number] FP TREATMENT NURSE [facility], [facility] [address] [place] [id number] 03/05/2005 14:53:36 03/05/2005 17:29:44 [id number] Gricelda Lanye MD FP, [facility] [place] [address] [place] [id number] 03/06/2005 11:53:52 03/06/2005 15:47:59 [id number] [facility] - [facility] [address] [place] [id number] 03/05/2005 15:26:52 03/05/2005 15:27:17 [id number] Gricelda Layne MD FP, [facility] [address] [place] [id number] 03/18/2005 16:33:44 03/19/2005 08:28:27 [id number] FP TREATMENT NURSE [facility], [facility] [address] [place] [id number] 03/26/2005 14:01:26 03/26/2005 16:56:44 [id number] FP TREATMENT NURSE [facility], [facility] [address] [place] [id number] 04/25/2005 15:06:42 04/29/2005 10:24:01 [id number] FP TREATMENT NURSE [facility], [facility] [address] [place] [id number] 04/02/2005 13:33:35 04/02/2005 14:27:19 [id number] [facility] - [facility] [address] [place] [id number] 05/15/2005 13:10:28 05/15/2005 13:11:25 [id number] [facility] - [facility] [address] [place] [id number] 06/02/2005 08:59:09 06/02/2005 09:00:10 [id number] Gricelda Layne MD FP, [facility] [address] [place] [id number] 1 06/09/2005 09:48:13 06/09/2005 17:49:27 [id number] [facility] - [facility] [address] [place] [id number] 06/30/2005 07:39:14 06/30/2005 10:47:09 [id number] [facility] - [facility] [address] [place] [id number] 07/15/2005 07:35:21 07/15/2005 10:38:06 [id number] [facility] - [facility] [address] [place] [id number] 08/05/2005 07:38:24 08/05/2005 10:34:53 [id number] FP TREATMENT NURSE [facility], [facility] [address] [place] [id number] 08/08/2005 11:53:47 08/08/2005 14:52:47 [id number] FP TREATMENT NURSE [facility], [facility] [address] [place] [id number] 08/11/2005 10:19:48 08/11/2005 15:05:14 [id number] FP TREATMENT NURSE [facility], [facility] [address] [place] [id number] 08/18/2005 10:57:06 08/18/2005 15:15:34 [id number] FP TREATMENT NURSE [facility], [facility] [address] [place] [id number] 08/25/2005 11:48:03 08/25/2005 17:40:40 [id number] FP TREATMENT NURSE [facility] FP, [facility] [address] [place] [id number] 09/17/2005 11:31:19 09/17/2005 15:17:53 [id number] Gricelda Layne MD FP, [facility] [address] [place] [id number] 10/09/2005 16:05:18 10/10/2005 16:24:20 [id number] FP TREATMENT NURSE [facility], [facility] [address] [place] [id number] 10/20/2005 09:54:51 10/20/2005 17:30:28 [id number] FP TREATMENT NURSE [facility], [facility] [address] [place] [id number] 11/17/2005 10:54:13 11/17/2005 17:50:24 [id number] [facility] - [facility] [address] [place] [id number] 11/28/2005 07:30:03 11/28/2005 08:43:26 [id number] FP TREATMENT NURSE [facility], [facility] [address] [place] [id number] 12/01/2005 10:50:57 05/17/2008 02:02:29 [id number] [facility] - [facility] [address] [place] [id number] 12/01/2005 11:06:46 12/01/2005 11:07:08 [id number] FP TREATMENT NURSE [facility], [facility] [address] [place] [id number] 12/02/2005 09:40:49 12/02/2005 12:24:54 [id number] Gricelda Layne MD , [facility] [address] [place] [id number] 12/05/2005 10:52:16 12/08/2005 09:32:36 [id number] FP TREATMENT NURSE [facility], [facility] [address] [place] [id number] 12/10/2005 14:20:32 12/10/2005 17:21:31 [id number] FP TREATMENT NURSE [facility], [facility] [address] [place] [id number] 12/12/2005 10:12:02 12/12/2005 13:55:19 [id number] [facility] - [facility] [address] [place] [id number] 12/15/2005 07:56:58 12/15/2005 10:52:40 [id number] [facility] - [address] [place] [id number] 12/19/2005 09:58:38 12/19/2005 09:58:49 Health Concerns Section Related Observation LastModified by Organization Detai ls LastModified Time None Recorded Concern Status LastModified by Organization Details LastModified Time None Recorded Advance Directives Directive None Recorded Payers Encounter Date Sequence Insurance Name Policy Number Policy Arce Covered Member ID Arce Member ID Guarantor Name 12/05/2005 1 MEDICARE B: [place] [employer] MEDICARE Mary Jane [facility] [id number] 1 12/10/2005 1 MEDICARE B: [place] [employer] MEDICARE Mary Jane [facility] [id number] 1 12/12/2005 1 MEDICARE B: [place] [employer] [place] [employer] MEDICARE [facility] [id number] 1 12/15/2005 1 MEDICARE B: [place] [employer] [place] [employer] MEDICARE Mary Jane [facility] [id number] 1 12/19/2005 1 MEDICARE B: [place] [employer] MEDICARE Mary Jane [facility] [id number] 1 OBGyn Episode No OBEpisode recorded.
== END 2024-08-25 13:41 | disposition home or self-care (01) ==
LOC: HO.ACS 13:03
PROVIDERS: PCP Internal Medicine; Visit Provider Internal Medicine Medical Oncology
DX: Z79.01 Long term (current) use of anticoagulants (principal)

== ENCOUNTER → 2024-08-25 13:03 | Outpatient (BNVA) | payer MEDICARE, SELFPAY | PROVIDERS: PCP Internal Medicine; Visit Provider Internal Medicine Medical Oncology | DX: Z86.718 Personal history of other venous thrombosis and embolism (principal); Z79.01 Long term (current) use of anticoagulants; Z51.81 Encounter for therapeutic drug level monitoring | CPT/HCPCS: 85610; 99211 ==

== ENCOUNTER → 2024-09-01 13:53 | Outpatient (BNVA) | payer OTHER, SELFPAY | PROVIDERS: PCP Internal Medicine; Visit Provider Internal Medicine Medical Oncology | DX: Z86.718 Personal history of other venous thrombosis and embolism (principal); Z51.81 Encounter for therapeutic drug level monitoring; Z79.01 Long term (current) use of anticoagulants | CPT/HCPCS: 85610; 99211 ==

== ENCOUNTER 2024-09-08 13:30 | Outpatient (AMB) | payer OTHER, SELFPAY ==
[2024-09-08 13:39] LABS: Prothrombin Time Whole Bld POC 35.4 sec (11.1-13.5)
--- NOTE | 2024-09-08 13:45 | MHC.OFFVISCO ---
Intake Intake Visit Reasons: Anticoagulation Allergies shrimp [SHRIMP] Allergy (Mild, Verified 09/08/24 13:31) HIVES diltiazem Adverse Reaction (Severe, Uncoded 09/08/24 13:31) feet pain, swelling Medication List - Last Reconciled 09/08/24 by Lubna Layne RN ammonium lactate 12% 1 appl topical BID atorvastatin 40 mg PO DAILY blood sugar diagnostic (Accu-Chek Guide test strips) As directed 2 times per day blood-glucose meter TEST 2 TIMES DAILY blood-glucose meter (Accu-Chek Guide Glucose Meter) As directed cholecalciferol (vitamin D3) PO cyanocobalamin (vitamin B-12) 1,000 mcg PO DAILY esomeprazole magnesium (Nexium) 20 mg PO DAILY furosemide 20 mg PO DAILY glipizide 5 mg PO DAILY hydrocortisone 1% (Anti-Itch (hydrocortisone)) 1 appl topical BID PRN 2 weeks lancing device ACCU-CHECK DARLINE DEVICE lancing device (Adjustable Lancing Device) As directed lisinopril 40 mg PO DAILY 90 days phenytoin sodium extended 200 mg PO BID tizanidine 4 mg PO Q8H PRN vitamins A,C,R-ievp-mozjwo (PreserVision AREDS) PO warfarin 5 mg See Protocol PO DAILY Nursing Note INR: 3.0 in therapeutic range Medications and supplements reviewed Pt concerned about her legs circulation and edema - to see wound clinic to see if they can help She is also to have Renal 09/15/24 consult Denies any signs and symptoms of bleeding or bruising or clotting. Bleeding, bruising, clotting discussed Nutritional guidance given Dose: 5mg daily F/U INR: 1 week Patient verbalizes understanding of instructions given Anti-Coag Initial Assessment Social Hx Patient Tobacco Use Status: Never used Tobacco Tobacco use type: Cigarette alcohol intake: never Alcohol intake frequency: a few times a month Questionnaires HAS-BLED Does the patient had uncontrolled Hypertension?: No Does the patient have renal disease?: Yes (renal cyst - consult 09/15/24) Does the patient have liver disease?: No Does the patient have a history of stroke?: No Has the patient had major bleeding or predisposition to bleeding?: Yes Does the patient have labile INRs?: Yes Is the patient over 65 years of age?: Yes Is the patient on medications that gives them a predisposition to bleeding?: No Does the patient use alcohol?: Yes HAS-BLED Score: 5 CHADSVASC Age: 75 or over Gender: Female Does the patient have a history of CHF?: No Does the patient have a history of Hypertension?: Yes Does the patient have a history of Stroke/TIA/Thromboembolism?: Yes Does the patient have a history of Vascular Disease (prior VA, PAD or aortic plaque)?: Yes Does the patient have a history of Diabetes?: Yes CHADS VACS Score: 8 Jackie Prediction Score Rsk VTE Active Cancer: No Previous VTE, excluding superficial vein thrombosis: Yes Reduced mobility: No 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) With-in last month Trauma and/or Surgery: No Elderly 70 year or older: Yes Heart and/or Respiratory Failure: No Acute Myocardial infarction and/or Ischemic Stroke: No Acute Infection and/or Rheumatologic Disorder: Yes Obesity (BMI 30 or greater): Yes Ongoing Hormonal Treatment: No Score: 9 Jackie Score less than 4; Low Risk of VTE Jackie Score 4 or greater; High Risk of VTE Coding Level of Care Code Est Patient Level 1 Diagnoses Current use of anticoagulant therapy Z79.01 Assessment & Plan Assessment & Plan (1) Current use of anticoagulant therapy: Code(s): Z79.01 - senior living (current) use of 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
--- OUTSIDE RECORDS SUMMARY | 2024-09-08 14:04 | XMS_ITS | Data Portability ---
Author Organization [place] - [facility], [facility] Address [address] [place] [address] Assessment No assessment recorded. Plan of Treatment [...] ) ALT 42 U/L 30-65 Not Available [address], [address], 06/26/2008 02:36:06 11/29/1911/28/2005 hemog lobin A1C w/ mpg hemoglobin A1C 5.6 % 4.8-6. 0 goal: <7% in patie nts with diabe ernestine Not Available [address], [address], 06/26/2008 02:36:06 11/29/1911/28/2005 lipid panel cholesterol 245 mg/dL <200 mg/dL naz eable 200-2 39 mg/dL borde rline high >240 mg/dL high Not Available [address], [address], 06/26/2008 02:36:06 11/29/1911/28/2005 lipid panel triglyceride s 216 mg/dL <150 mg/dL helene l 150-1 99 mg/dL borde rline high 200-4 99 mg/dL high >500 mg/dL very high Not Available [address], [address], 06/26/2008 02:36:06 11/29/1911/28/2005 lipid panel direct HDL 62 mg/dL <40 mg/dL - major risk for CHD >60 mg/dL - negat danyell risk for CHD Not Available [address], [address], 06/26/2008 02:36:06 11/29/1911/28/2005 lipid panel direct LDL [...] r IS not necvinod faby. Not Available [address], [address], 06/26/2008 02:36:06 12/02/19 06 12/01/2005 mendez jha n time PT 41.1 secon ds 9.0-10 .4 high Not Available [address], [address], 06/26/2008 03:22:12 12/02/19 06 12/01/2005 proth radhabi n time INR 4.1 0.9-1. 1 high sugge sted value of 2.0-3 .0 for proph ylaxi s of venou s thomb osis, and preve ntion of embol ism. sugge sted value of 2.5-3 .5 for preve ntion of recur rent embol ism or patie nts with mecha nical prost hetic heart valve s. Not Available [address], [address], 06/26/2008 03:22:12 12/16/19 06 12/15/2005 proth rombi n time PT 23.6 secon ds 9.0-10 .4 high Not Available [address], [address], 06/26/2008 03:41:29 12/16/19 06 12/15/2005 proth rombi n time INR 2.4 0.9-1. 1 high sugge sted value of 2.0-3 .0 for proph ylaxi s of venou s thomb osis, and preve ntion of embol ism. sugge sted value of 2.5-3 .5 for preve ntion of recur rent embol ism or patie nts with mecha nical prost hetic heart valve s. Not Available [address], [address], 06/26/2008 03:41:29 12/20/19 06 12/19/2005 proth rombi n time PT 23.3 secon ds 9.0-10 .4 high Not Available [address], [address], 06/26/2008 03:27:20 12/20/19 06 12/19/2005 proth rombi n time INR 2.4 0.9-1. 1 high sugge sted value of 2.0-3 .0 for proph ylaxi s of venou s thomb osis, and preve ntion of embol ism. sugge sted value of 2.5-3 .5 for preve ntion of recur rent embol ism or patie nts with mecha nical prost hetic heart valve s. Not Available [address], [address], 06/26/2008 03:27:20 Result Notes None recorded. 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 Active 2005 Not Available [facility] 3 03:12:20 Benign essential hypertensi on 8010526 Active 2003 Not Available [facility] 3 03:12:20 Atrial fibrillati on 03340193 Active 2004 Not Available [facility] 3 03:12:20 Phlebitis of the femoral vein 988532426 Active 2003 Not Available [facility] 3 03:12:20 Major depression , melancholi c type 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 Active 2005 Not Available [facility] 3 03:12:20 Common cold 80334867 Completed 200403/16/2013 [facility] Available [facility] 3 02:00:29 Pain of joint of hand 399758024 Completed 200403/16/2013 Not Available [facility] 3 02:02:43 Edema of extremity 695849623 Completed 200303/16/2013 Not Available [facility] 3 02:02:55 On examinatio n - a rash Completed 200403/16/2013 Not Available [facility] 3 02:00:49 Seizure 97090499 Active 2004 Not Available [facility] 3 03:12:20 Type 2 diabetes mellitus without complicati on 176157538 Active 2003 Not Available [facility] 3 03:12:20 Acute maxillary sinusitis 08061721 Completed 200403/16/2013 Not Available [facility] 3 02:01:43 Abnormal weight gain 746282424 Active 2003 Not Available [facility] 3 03:12:20 Generalize d abdominal pain 368221944 Completed 200303/16/2013 Not Available [facility] 3 02:02:06 Hyperlipid emia 64908100 Active 2004 Not Available [facility] 3 03:12:20 Dysuria 35172306 Completed 200303/16/2013 Not Available [facility] 3 02:02:00 Peripheral venous insufficie ncy 70369434 Active 2003 Not Available [facility] 3 03:12:20 Hypothyroi dism 22992625 Active 2004 Not Available [facility] 3 03:12:20 Streptococ samm sore throat 17584893 Completed 200303/16/2013 Not Available [facility] 3 02:02:03 Acute bronchitis 95665267 Completed 200403/16/2013 Not Available [facility] 3 02:01:37 Problem Notes None recorded. [...] influenza, unspecified formulation 4 completed Not Available [facility] 03/12/2011 05:21:07 influenza, unspecified formulation 4 completed Not Available [facility] 03/12/2011 05:21:07 influenza, unspecified formulation 5 completed Not Available [facility] 03/12/2011 05:21:29 influenza, unspecified formulation 5 completed Not Available [facility] 03/12/2011 05:21:29 Past Encounters Encounter ID Performer Location Encounter Start Date Encounter Closed Date Diagnosis/Indication Diagnosis SNOMED-CT Code Diagnosis ICD10 Code Diagnosis Note [id number] Gricelda Layne MD , [facility], OFFICE [address] [place] [address] 11/16/2003 12:14:30 11/22/2003 09:27:14 [id number] MD RODGER Raza, [address] [place] [address] 12/22/2003 09:56:38 12/25/2003 15:40:32 [id number] MD RODGER Raza, [address] [place] [address] 01/19/2004 09:54:48 01/22/2004 08:56:58 [id number] FP TREATMENT NURSE [facility], [facility] [place] [place] OFFICE [address] [place] [address] 02/02/2004 09:07:12 02/02/2004 12:21:32 [id number] [facility] LAB LAB - [address] [place] [address] 02/02/2004 07:26:36 02/02/2004 09:21:04 [id number] FP TREATMENT NURSE [facility], [address] [place] [address] 03/07/2004 08:50:31 03/07/2004 17:12:49 [id number] Gricelda Layne MD , [address] [place] [address] 04/05/2004 09:48:00 04/09/2004 08:47:39 [id number] FP TREATMENT NURSE [facility], [address] [place] [address] 04/15/2004 15:03:12 04/15/2004 17:36:23 [id number] Gricelda Layne MD , [address] [place] [address] 04/12/2004 10:53:34 05/17/2008 02:02:29 [id number] FP TREATMENT NURSE [facility], [address] [place] [address] 04/22/2004 14:57:11 04/23/2004 09:26:19 [id number] MD RODGER Raza, [address] [place] [address] 05/03/2004 10:24:03 05/06/2004 08:51:52 [id number] Reid Ya FP, [address] [place] [address] 05/20/2004 10:47:03 05/21/2004 08:35:20 [id number] Yarelis MADISON FP, [facility], OFFICE [address] [place] [address] 05/24/2004 11:19:37 05/27/2004 09:14:32 [id number] FP TREATMENT NURSE [facility] FP, [facility], OFFICE [address] [place] [address] 05/27/2004 09:35:41 05/28/2004 09:13:28 [id number] Gricelda Layne MD FP, [facility], OFFICE [address] [place] [address] 06/04/2004 08:58:14 06/04/2004 17:23:42 [id number] FP TREATMENT NURSE [facility] FP, [facility], OFFICE [address] [place] [address] 06/18/2004 10:00:16 06/18/2004 16:52:29 [id number] [facility] LAB LAB - [address] [place] [address] 06/18/2004 07:34:32 06/18/2004 09:59:04 [id number] Gricelda Layne MD FP, [facility], OFFICE [address] [place] [address] 06/27/2004 11:46:29 06/28/2004 09:09:13 [id number] FP TREATMENT NURSE [facility] FP, [facility], OFFICE [address] [place] [address] 08/14/2004 11:47:27 08/15/2004 08:54:14 [id number] Gricelda Layne MD FP, [facility], OFFICE [address] [place] [address] [place] [address] 09/19/2004 16:03:15 09/20/2004 16:06:43 [id number] FP TREATMENT NURSE [facility] FP, [facility], OFFICE [address] [place] [address] 10/17/2004 08:40:42 10/17/2004 15:32:26 [id number] [facility] LAB LAB - [facility] [address] [place] [address] 10/17/2004 07:29:38 10/17/2004 09:02:48 [id number] Gricelda Layne MD FP, [facility], OFF[address] [place] [address] 10/25/2004 10:49:52 11/01/2004 08:36:26 [id number] FP TREATMENT NURSE [facility], [facility], OFFICE [address] [place] [address] 11/19/2004 09:04:39 11/20/2004 08:14:19 [id number] FP TREATMENT NURSE [facility], [facility], OFFICE [address] [place] [address] 1 11/26/2004 08:55:17 11/26/2004 16:24:15 [id number] FP TREATMENT NURSE [facility], [facility], OFFICE [address] [place] [address] 12/03/2004 09:11:25 12/04/2004 14:38:40 [id number] [facility] MAMMOGRAPH Y Technologi st Radiology , [facility] [address] [place] [address] 12/05/2004 10:50:31 12/05/2004 11:29:40 [id number] FP TREATMENT NURSE [facility], [facility], OFFICE [address] [place] [address] 12/20/2004 08:19:23 12/20/2004 15:41:51 [id number] [facility] LAB LAB - [facility] [address] [place] [address] 12/20/2004 07:34:27 12/20/2004 08:05:52 [id number] FP TREATMENT NURSE [facility], [facility], OFFICE [address] [place] [address] 12/27/2004 09:49:39 12/27/2004 15:08:31 [id number] MD RODGER Raza, [facility], OFFICE [address] [place] [address] 12/31/2004 11:01:20 01/02/2005 10:36:32 [id number] FP TREATMENT NURSE [facility], [facility], OFFICE [address] [place] [address] 01/08/2005 10:14:21 01/08/2005 15:13:20 [id number] FP TREATMENT NURSE [facility] FP, [facility], OFFICE [address] [place] [address] 01/16/2005 10:11:30 01/16/2005 15:05:45 [id number] FP TREATMENT NURSE [facility], [facility], OFFICE [address] [place] [address] 01/30/2005 10:31:42 01/30/2005 14:44:48 [id number] [facility] FLU CLINIC FP, [facility], OFFICE [address] [place] [address] 02/18/2005 15:03:31 02/18/2005 17:29:51 [id number] FP TREATMENT NURSE [facility] FP, [facility], OFFICE [address] [place] [address] 03/05/2005 14:53:36 03/05/2005 17:29:44 [id number] Gricelda Layne MD FP, [facility], OFFICE [address] [place] [address] 03/06/2005 11:53:52 03/06/2005 15:47:59 [id number] [facility] LAB LAB - [facility] [address] [place] [address] 03/05/2005 15:26:52 03/05/2005 15:27:17 [id number] Gricelda Layne MD FP, [facility], OFFICE [address] [place] [address] 03/18/2005 16:33:44 03/19/2005 08:28:27 [id number] FP TREATMENT NURSE [facility] FP, [facility], OFFICE [address] [place] [address] 1 03/26/2005 14:01:26 03/26/2005 16:56:44 [id number] FP TREATMENT NURSE [facility] FP, [facility], OFFICE [address] [place] [address] 04/25/2005 15:06:42 04/29/2005 10:24:01 [id number] FP TREATMENT NURSE [facility] FP, [facility], OFFICE [address] [place] [address] 1 04/02/2005 13:33:35 04/02/2005 14:27:19 [id number] [facility] LAB LAB - [facility] [address] [place] [address] 05/15/2005 13:10:28 05/15/2005 13:11:25 [id number] [facility] LAB - [facility] [address] [place] [id number] 06/02/2005 08:59:09 06/02/2005 09:00:10 [id number] Gricelda Layne MD FP, [facility], OFFICE [address] [place] [address] 06/09/2005 09:48:13 06/09/2005 17:49:27 [id number] [facility] LAB - [facility] [address] [place] [address] 06/30/2005 07:39:14 06/30/2005 10:47:09 [id number] [facility] LAB - [facility] [address] [place] [id number] 07/15/2005 07:35:21 07/15/2005 10:38:06 [id number] [facility] LAB - [facility] [address] [place] [address] 08/05/2005 07:38:24 08/05/2005 10:34:53 [id number] FP TREATMENT NURSE [facility] FP, [facility], OFFICE [address] [place] [address] 08/08/2005 11:53:47 08/08/2005 14:52:47 [id number] FP TREATMENT NURSE [facility] FP, [facility], OFFICE [address] [place] [address] 08/11/2005 10:19:48 08/11/2005 15:05:14 [id number] FP TREATMENT NURSE [facility] FP, [facility], OFFICE [address] [place] [address] 08/18/2005 10:57:06 08/18/2005 15:15:34 [id number] FP TREATMENT NURSE [facility] FP, [facility], OFFICE [address] [place] [address] 08/25/2005 11:48:03 08/25/2005 17:40:40 [id number] FP TREATMENT NURSE [facility] FP, [facility], OFFICE [address] [place] [address] 09/17/2005 11:31:19 09/17/2005 15:17:53 [id number] Gricelda Layne MD FP, [facility], OFFICE [address] [place] [address] 10/09/2005 16:05:18 10/10/2005 16:24:20 [id number] FP TREATMENT NURSE [facility] FP, [facility], OFFICE [address] [place] [address] 10/20/2005 09:54:51 10/20/2005 17:30:28 [id number] FP TREATMENT NURSE [facility] FP, [facility], OFFICE [address] [place] [address] 11/17/2005 10:54:13 11/17/2005 17:50:24 [id number] [facility] LAB - [facility] [address] [place] [address] 11/28/2005 07:30:03 11/28/2005 08:43:26 [id number] FP TREATMENT NURSE [facility], [facility], OFFICE [address] [place] [address] 12/01/2005 10:50:57 05/17/2008 02:02:29 [id number] [facility] LAB - [facility] [address] [place] [address] 12/01/2005 11:06:46 12/01/2005 11:07:08 [id number] FP TREATMENT NURSE [facility], [facility], OFFICE [address] [place] [address] 12/02/2005 09:40:49 12/02/2005 12:24:54 [id number] Gricelda Layne MD , [facility], OFFICE [address] [place] [address] 12/05/2005 10:52:16 12/08/2005 09:32:36 [id number] FP TREATMENT NURSE [facility], [facility], OFFICE [address] [place] [address] 12/10/2005 14:20:32 12/10/2005 17:21:31 [id number] FP TREATMENT NURSE [facility], [facility], OFFICE [address] [place] [address] 12/12/2005 10:12:02 12/12/2005 13:55:19 [id number] [facility] LAB - [facility] [address] [place] [address] 12/15/2005 07:56:58 12/15/2005 10:52:40 [id number] [facility] - [address] [place] [address] 12/19/2005 09:58:38 12/19/2005 09:58:49 Health Concerns Section Related Observation LastModified by Organization Detai ls LastModified Time None Recorded Concern Status LastModified by Organization Details LastModified Time None Recorded Advance Directives Directive None Recorded Payers Encounter Date Sequence Insurance Name Policy Number Policy Arce Covered Member ID Arce Member ID Guarantor Name 12/05/2005 1 MEDICARE B: [employer] [employer] MEDICARE [facility] [id number] 1 12/10/2005 1 MEDICARE B: [place] [employer] MEDICARE [facility] [id number] 1 12/12/2005 1 MEDICARE B: [place] [employer] - [employer] MEDICARE [facility] [id number] 1 12/15/2005 1 MEDICARE B: [place] [employer] MEDICARE Mary Jane [facility] [id number] 1 12/19/2005 1 MEDICARE B: [place] [employer] MEDICARE Mary Jane [facility] [id number] OBGyn Episode No OBEpisode recorded.
--- OUTSIDE RECORDS SUMMARY | 2024-09-08 14:04 | XMS_ITS | Clinical Summary ---
Author Organization [facility] Address [address] [place] [address] Phone Care Team Providers Care Tacker Elastic Band Name Role Phone Unavailable Primary Care Provider Unavailabl e Social History Tobacco Use Types Packs/Day Years [...]
== END 2024-09-08 14:00 | disposition home or self-care (01) ==
LOC: HO.ACS 13:30
PROVIDERS: PCP Internal Medicine; Visit Provider Internal Medicine Medical Oncology
DX: Z79.01 Long term (current) use of anticoagulants (principal)

== ENCOUNTER → 2024-09-08 13:30 | Outpatient (BNVA) | payer OTHER, SELFPAY | PROVIDERS: PCP Internal Medicine; Visit Provider Internal Medicine Medical Oncology | DX: Z86.718 Personal history of other venous thrombosis and embolism (principal); Z51.81 Encounter for therapeutic drug level monitoring; Z79.01 Long term (current) use of anticoagulants | CPT/HCPCS: 85610; 99211 ==

== ENCOUNTER 2024-09-15 10:06 | Outpatient (AMB) | payer OTHER, SELFPAY ==
--- OUTSIDE RECORDS SUMMARY | 2024-09-15 10:28 | XMS_ITS | Data Portability ---
Author Organization [place] - [facility], , [facility] Address [address] [place] [address] Assessment No assessment recorded. Plan of Treatment [...] ALT 42 U/L 30-65 Not Available [address], [address], 06/26/2008 02:36:06 11/29/1911/28/2005 hemog lobin A1C w/ mpg hemoglobin A1C 5.6 % 4.8-6. 0 goal: <7% in patie nts with diabe ernestine Not Available [address], [address], 06/26/2008 02:36:06 11/29/1911/28/2005 lipid panel cholesterol 245 mg/dL <200 mg/dL naz eable 200-2 39 mg/dL borde rline high >240 mg/dL high Not Available [address], [address], 06/26/2008 02:36:06 11/29/1911/28/2005 lipid panel triglyceride s 216 mg/dL <150 mg/dL helene l 150-1 99 mg/dL borde rline high 200-4 99 mg/dL high >500 mg/dL very high Not Available [address], [address], 06/26/2008 02:36:06 11/29/1911/28/2005 lipid panel direct HDL 62 mg/dL <40 mg/dL - major risk for CHD >60 mg/dL - negat danyell risk for CHD Not Available [address], [address], 06/26/2008 02:36:06 11/29/1911/28/2005 lipid panel direct LDL [...] IS not necvinod faby. Not Available [address], [address], 06/26/2008 02:36:06 12/02/19 06 12/01/2005 mendez jha n time PT 41.1 secon ds 9.0-10 .4 high Not Available [address], [address], 06/26/2008 03:22:12 12/02/19 06 12/01/2005 proth radhabi n time INR 4.1 0.9-1. 1 high sugge sted value of 2.0-3 .0 for proph ylaxi s of venou s thomb osis, and preve ntion of embol ism. sugge sted value of 2.5-3 .5 for preve ntion of recur rent embol ism or patie nts with mecha nical prost hetic heart valve s. Not Available [address], [address], 06/26/2008 03:22:12 12/16/19 06 12/15/2005 proth rombi n time PT 23.6 secon ds 9.0-10 .4 high Not Available [address], [address], 06/26/2008 03:41:29 12/16/19 06 12/15/2005 proth rombi n time INR 2.4 0.9-1. 1 high sugge sted value of 2.0-3 .0 for proph ylaxi s of venou s thomb osis, and preve ntion of embol ism. sugge sted value of 2.5-3 .5 for preve ntion of recur rent embol ism or patie nts with mecha nical prost hetic heart valve s. Not Available [address], [address], 06/26/2008 03:41:29 12/20/19 06 12/19/2005 proth rombi n time PT 23.3 secon ds 9.0-10 .4 high Not Available [address], [address], 06/26/2008 03:27:20 12/20/19 06 12/19/2005 proth rombi n time INR 2.4 0.9-1. 1 high sugge sted value of 2.0-3 .0 for proph ylaxi s of venou s thomb osis, and preve ntion of embol ism. sugge sted value of 2.5-3 .5 for preve ntion of recur rent embol ism or patie nts with mecha nical prost hetic heart valve s. Not Available [address], [address], 06/26/2008 03:27:20 Result Notes None recorded. 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 Not Available [facility] 3 03:12:20 Thromboemb olic disorder 540340875 Active 2005 Not Available [facility] 3 03:12:20 Benign essential hypertensi on 9690039 Active 2003 Not Available [facility] 3 03:12:20 Atrial fibrillati on 01378647 Active 2004 Not Available [facility] 3 03:12:20 Phlebitis of the femoral vein 863645542 Active 2003 Not Available [facility] 3 03:12:20 Major depression , melancholi c type 745213895 Active 2005 Not Available [facility] 3 03:12:20 Common cold 37941473 Completed 200403/16/2013 Not Available [facility] 3 02:00:29 Pain of joint of hand 023697841 Completed 200403/16/2013 Not Available [facility] 3 02:02:43 Edema of extremity 547462196 Completed 200303/16/2013 Not Available [facility] 3 02:02:55 On examinatio n - a rash Completed 200403/16/2013 Not Available [facility] 3 02:00:49 Seizure 80533395 Active 2004 Not Available [facility] 3 03:12:20 Type 2 diabetes mellitus without complicati on 774850698 Active 2003 Not Available [facility] 3 03:12:20 Acute maxillary sinusitis 62371106 Completed 200403/16/2013 Not Available [facility] 3 02:01:43 Abnormal weight gain 501298555 Active 2003 Not Available [facility] 3 03:12:20 Generalize d abdominal pain 046850788 Completed 200303/16/2013 Not Available [facility] 3 02:02:06 Hyperlipid emia 35861444 Active 2004 Not Available [facility] 3 03:12:20 Dysuria 62209806 Completed 200303/16/2013 Not Available [facility] 3 02:02:00 Peripheral venous insufficie ncy 46392194 Active 2003 Not Available [facility] 3 03:12:20 Hypothyroi dism 37634573 Active 2004 Not Available [facility] 3 03:12:20 Streptococ samm sore throat 85098723 Completed 200303/16/2013 Not Available [facility] 3 02:02:03 Acute bronchitis 59382909 Completed 200403/16/2013 Not Available [facility] 3 02:01:37 Problem Notes None [...] influenza, unspecified formulation 4 completed Not Available [facility] 03/12/2011 05:21:07 influenza, unspecified formulation 4 completed Not Available [facility] 03/12/2011 05:21:07 influenza, unspecified formulation 5 completed Not Available [facility] 03/12/2011 05:21:29 influenza, unspecified formulation 5 completed Not Available [facility] 03/12/2011 05:21:29 Past Encounters Encounter ID Performer Location Encounter Start Date Encounter Closed Date Diagnosis/Indication Diagnosis SNOMED-CT Code Diagnosis ICD10 Code Diagnosis Note [id number] Gricelda Layne MD , [facility], OFFICE [address] [place] [address] 11/16/2003 12:14:30 11/22/2003 09:27:14 [id number] MD RODGER Raza, [address] [place] [address] 12/22/2003 09:56:38 12/25/2003 15:40:32 [id number] MD RODGER Raza, [address] [place] [address] 01/19/2004 09:54:48 01/22/2004 08:56:58 [id number] FP TREATMENT NURSE [facility], [facility] OFFICE [address] [place] [address] 02/02/2004 09:07:12 02/02/2004 12:21:32 [id number] [facility] LAB LAB - [address] [place] [address] 02/02/2004 07:26:36 02/02/2004 09:21:04 [id number] FP TREATMENT NURSE [facility], [address] [place] [address] 03/07/2004 08:50:31 03/07/2004 17:12:49 [id number] Gricelda Layne MD , [address] [place] [address] 04/05/2004 09:48:00 04/09/2004 08:47:39 [id number] FP TREATMENT NURSE [facility], [address] [place] [address] 04/15/2004 15:03:12 04/15/2004 17:36:23 [id number] Gricelda Layne MD , [address] [place] [address] 04/12/2004 10:53:34 05/17/2008 02:02:29 [id number] FP TREATMENT NURSE [facility], [address] [place] [address] 04/22/2004 14:57:11 04/23/2004 09:26:19 [id number] MD RODGER Raza, [address] [place] [address] 05/03/2004 10:24:03 05/06/2004 08:51:52 [id number] Reid Ya FP, [address] [place] [address] 05/20/2004 10:47:03 05/21/2004 08:35:20 [id number] Yarelis MADISON FP, [facility], OFFICE [address] [place] [address] 05/24/2004 11:19:37 05/27/2004 09:14:32 [id number] FP TREATMENT NURSE [facility] FP, [facility], OFFICE [address] [place] [address] 05/27/2004 09:35:41 05/28/2004 09:13:28 [id number] Gricelda Layne MD FP, [facility], OFFICE [address] [place] [address] 06/04/2004 08:58:14 06/04/2004 17:23:42 [id number] FP TREATMENT NURSE [facility] FP, [facility], OFFICE [address] [place] [address] 06/18/2004 10:00:16 06/18/2004 16:52:29 [id number] [facility] LAB LAB - [address] [place] [address] 06/18/2004 07:34:32 06/18/2004 09:59:04 [id number] Gricelda Layne MD FP, [facility], OFFICE [address] [place] [address] 06/27/2004 11:46:29 06/28/2004 09:09:13 [id number] FP TREATMENT NURSE [facility] FP, [facility], OFFICE [address] [place] [address] 08/14/2004 11:47:27 08/15/2004 08:54:14 [id number] Gricelda Layne MD FP, [facility], OFFICE [address] [place] [address] [place] [address] 09/19/2004 16:03:15 09/20/2004 16:06:43 [id number] FP TREATMENT NURSE [facility] FP, [facility], OFFICE [address] [place] [address] 10/17/2004 08:40:42 10/17/2004 15:32:26 [id number] [facility] LAB LAB - [facility] [address] [place] [address] 10/17/2004 07:29:38 10/17/2004 09:02:48 [id number] Gricelda Layne MD FP, [facility], OFF[address] [place] [address] 10/25/2004 10:49:52 11/01/2004 08:36:26 [id number] FP TREATMENT NURSE [facility], [facility], OFFICE [address] [place] [address] 11/19/2004 09:04:39 11/20/2004 08:14:19 [id number] FP TREATMENT NURSE [facility], [facility], OFFICE [address] [place] [address] 11/26/2004 08:55:17 11/26/2004 16:24:15 [id number] FP TREATMENT NURSE [facility], [facility], OFFICE [address] [place] [address] 12/03/2004 09:11:25 12/04/2004 14:38:40 [id number] [facility] M[employer] [facility] [employer] , [facility] [address] [place] [address] 12/05/2004 10:50:31 12/05/2004 11:29:40 [id number] FP TREATMENT NURSE [facility], [facility], OFFICE [address] [place] [address] 12/20/2004 08:19:23 12/20/2004 15:41:51 [id number] [facility] LAB LAB - [facility] [address] [place] [address] 12/20/2004 07:34:27 12/20/2004 08:05:52 [id number] FP TREATMENT NURSE [facility], [facility], OFFICE [address] [place] [address] 12/27/2004 09:49:39 12/27/2004 15:08:31 [id number] MD RODGER Raza, [facility], OFFICE [address] [place] [address] 12/31/2004 11:01:20 01/02/2005 10:36:32 [id number] FP TREATMENT NURSE [facility], [facility], OFFICE [address] [place] [address] 01/08/2005 10:14:21 01/08/2005 15:13:20 [id number] FP TREATMENT NURSE [facility] FP, [facility], OFFICE [address] [place] [address] 01/16/2005 10:11:30 01/16/2005 15:05:45 [id number] FP TREATMENT NURSE [facility], [facility], OFFICE [address] [place] [address] 01/30/2005 10:31:42 01/30/2005 14:44:48 [id number] [facility] FLU CLINIC FP, [facility], OFFICE [address] [place] [address] 02/18/2005 15:03:31 02/18/2005 17:29:51 [id number] FP TREATMENT NURSE [facility] FP, [facility], OFFICE [address] [place] [address] 03/05/2005 14:53:36 03/05/2005 17:29:44 [id number] Gricelda Layne MD FP, [facility], OFFICE [address] [place] [address] 03/06/2005 11:53:52 03/06/2005 15:47:59 [id number] [facility] LAB LAB - [facility] [address] [place] [address] 03/05/2005 15:26:52 03/05/2005 15:27:17 [id number] Gricelda Layne MD FP, [facility], OFFICE [address] [place] [address] 03/18/2005 16:33:44 03/19/2005 08:28:27 [id number] FP TREATMENT NURSE [facility] FP, [facility], OFFICE [address] [place] [address] 03/26/2005 14:01:26 03/26/2005 16:56:44 [id number] FP TREATMENT NURSE [facility] FP, [facility], OFFICE [address] [place] [address] 04/25/2005 15:06:42 04/29/2005 10:24:01 [id number] FP TREATMENT NURSE [facility] FP, [facility], OFFICE [address] [place] [address] 04/02/2005 13:33:35 04/02/2005 14:27:19 [id number] [facility] LAB LAB - [facility] [address] [place] [address] 05/15/2005 13:10:28 05/15/2005 13:11:25 [id number] [facility] LAB LAB - [facility] [address] [place] [address] 06/02/2005 08:59:09 06/02/2005 09:00:10 [id number] Gricelda Layne MD FP, [facility], OFFICE [address] [place] [address] 06/09/2005 09:48:13 06/09/2005 17:49:27 [id number] [facility] LAB LAB - [facility] [address] [place] [address] 06/30/2005 07:39:14 06/30/2005 10:47:09 [id number] [facility] LAB LAB - [facility] [address] [place] [address] 07/15/2005 07:35:21 07/15/2005 10:38:06 [id number] [facility] LAB LAB - [facility] [address] [place] [address] 08/05/2005 07:38:24 08/05/2005 10:34:53 [id number] FP TREATMENT NURSE [facility] FP, [facility], OFFICE [address] [place] [address] 08/08/2005 11:53:47 08/08/2005 14:52:47 [id number] FP TREATMENT NURSE [facility] FP, [facility], OFFICE [address] [place] [address] 08/11/2005 10:19:48 08/11/2005 15:05:14 [id number] FP TREATMENT NURSE [facility] FP, [facility], OFFICE [address] [place] [address] 08/18/2005 10:57:06 08/18/2005 15:15:34 [id number] FP TREATMENT NURSE [facility] FP, [facility], OFFICE [address] [place] [address] 08/25/2005 11:48:03 08/25/2005 17:40:40 [id number] FP TREATMENT NURSE [facility] FP, [facility], OFFICE [address] [place] [address] 1 09/17/2005 11:31:19 09/17/2005 15:17:53 [id number] Gricelda Layne MD FP, [facility], OFFICE [address] [place] [address] 10/09/2005 16:05:18 10/10/2005 16:24:20 [id number] FP TREATMENT NURSE [facility] FP, [facility], OFFICE [address] [place] [address] 10/20/2005 09:54:51 10/20/2005 17:30:28 [id number] FP TREATMENT NURSE [facility] FP, [facility], OFFICE [address] [place] [address] 11/17/2005 10:54:13 11/17/2005 17:50:24 [id number] [facility] LAB LAB - [facility] [address] [place] [address] 11/28/2005 07:30:03 11/28/2005 08:43:26 [id number] FP TREATMENT NURSE [facility], [facility], OFFICE [address] [place] [address] 12/01/2005 10:50:57 05/17/2008 02:02:29 [id number] [facility] LAB LAB - [facility] [address] [place] [address] 12/01/2005 11:06:46 12/01/2005 11:07:08 [id number] FP TREATMENT NURSE [facility], [facility], OFFICE [address] [place] [address] 12/02/2005 09:40:49 12/02/2005 12:24:54 [id number] Gricelda Layne MD , [facility], OFFICE [address] [place] [address] 12/05/2005 10:52:16 12/08/2005 09:32:36 [id number] FP TREATMENT NURSE [facility], [facility], OFFICE [address] [place] [address] 12/10/2005 14:20:32 12/10/2005 17:21:31 [id number] FP TREATMENT NURSE [facility], [facility], OFFICE [address] [place] [address] 12/12/2005 10:12:02 12/12/2005 13:55:19 [id number] [facility] LAB - [facility] [address] [place] [address] 12/15/2005 07:56:58 12/15/2005 10:52:40 [id number] [facility] - [address] [place] [address] 12/19/2005 09:58:38 12/19/2005 09:58:49 Health Concerns Section Related Observation LastModified by Organization Detai ls LastModified Time None Recorded Concern Status LastModified by Organization Details LastModified Time None Recorded Advance Directives Directive None Recorded Payers Encounter Date Sequence Insurance Name Policy Number Policy Arce Covered Member ID Arce Member ID Guarantor Name 12/05/2005 1 FARHNA GALICIA - MEDICARE-[address] [employer] (MEDICARE) Mary Jane Falcongregor [id number] 1 12/10/2005 [facility] [facility] [facility] (MEDICARE) Mary Jane Carpenter [id number] 1 12/12/2005 1 FARHAN GALICIA - MEDICARE-[address] [employer] (MEDICARE) [id number] 1 12/15/2005 1 FARHAN GALICIA - MEDICARE-[address] [employer] (MEDICARE) Mary Jane [facility] [id number] 1 12/19/2005 1 FARHAN GALICIA - MEDICARE-[address] [employer] (MEDICARE) [facility] [id number] 1 OBGyn Episode No OBEpisode recorded.
--- OUTSIDE RECORDS SUMMARY | 2024-09-15 10:28 | XMS_ITS | Clinical Summary ---
Author Organization [facility] Address [address] [place] [address] Phone Care Team Providers Care Front End Architect Name Role Phone Unavailable Primary Care Provider [...]
[2024-09-15 11:06] VITALS: BP 156/68; PULSE 92; O2SAT 96; BMI 41.0
--- NOTE | 2024-09-15 11:06 | HO.NEPHOV ---
Vital Signs 09/15/24 11:06 Height 5 ft 2 in Weight 224 lb BMI 41.0 BP 156/68 H Blood Pressure Location Lt brachial Position Sitting Pulse 92 Pulse Source Pulse Oximeter Pulse Oximetry (%) 96 Oxygen Delivery Method Room Air Intake Visit Reasons: INP: Cyst of kidney/ LVM Casing In Line Setter Required: No Accompanied by: Self / Same As Patient Allergies shrimp [SHRIMP] Allergy (Mild, Verified 09/15/24 11:08) HIVES diltiazem Adverse Reaction (Severe, Uncoded 09/08/24 13:31) feet pain, swelling Medication List - Last Reconciled 09/15/24 by Monty Barriga MD ammonium lactate 12% 1 appl topical BID atorvastatin 40 mg PO DAILY blood sugar diagnostic (Accu-Chek Guide test strips) As directed 2 times per day blood-glucose meter TEST 2 TIMES DAILY blood-glucose meter (Accu-Chek Guide Glucose Meter) As directed cholecalciferol (vitamin D3) PO DAILY cyanocobalamin (vitamin B-12) 1,000 mcg PO DAILY esomeprazole magnesium (Nexium) 20 mg PO DAILY glipizide 5 mg PO DAILY hydrocortisone 1% (Anti-Itch (hydrocortisone)) 1 appl topical BID PRN 2 weeks lancing device ACCU-CHECK DARLINE DEVICE lancing device (Adjustable Lancing Device) As directed lisinopril 40 mg PO DAILY 90 days phenytoin sodium extended 200 mg PO BID tizanidine 4 mg PO Q8H PRN vitamins A,C,U-kafq-dalhxy (PreserVision AREDS) PO BID warfarin 5 mg See Protocol PO DAILY HPI Comments Details: 78-year-old lady with past medical history of hypertension, hyperlipidemia, diabetes mellitus, factor 5 Leiden mutation he is referred from the internal medicine clinic for renal cyst found on renal ultrasound 2.5 and 2.3 cm in size simple cyst of the right kidney. She had a CT scan done 8 months ago, and the kidneys were reported to be normal. Patient used to live in [place], moved here after has been step to take care of her brother. She has swelling of bilateral lower extremities and her blood pressures are slightly on the higher side. She takes 20 mg of Lasix daily She also complains of 2nd toe pain in her right leg, we will get uric acid levels [facility] Medical History (Updated 09/15/24 @ 12:14 by Monty Barriga MD) PAF (paroxysmal atrial fibrillation) Atrial fibrillation Factor V Leiden DVT (deep venous thrombosis) Hyperlipidemia Hypertension Diabetes mellitus with coincident hypertension Surgical History History of lumpectomy of right breast History of appendectomy History of cholecystectomy Family History Father Asthma Mother Diabetes Hypertension Colon cancer Other Substance use disorder Social History Household Members: None Housing: Apartment Do you presently have visiting nurse or other home services: No Alcohol intake: never Patient Tobacco Use Status: Never used Tobacco Tobacco use type: Cigarette e-Cigarette/Vaping Use: Never Used Second Hand Smoke Exposure: No Advance Directives Date on File: 02/03/23 service: No Current occupational status: employed Cognitive needs: No Hearing needs: No Vision needs: No Review of Systems Const Details: Const Denies body aches, Denies chills, Denies excessive sweating and Denies fatigue Eyes Denies blurry vision and Denies change in vision ENT Denies bleeding gums and Denies change in voice Card Denies chest pain and Denies leg ulcers Resp Denies cough and Denies excessive phlegm production GI Denies abdominal pain and Denies bloating Denies hematuria, Denies urinary frequency and Denies difficulty voiding Musc Denies abnormal gait Neuro Denies Neuro-related abnormal movements, Denies abnormal gait and Denies behavioral changes Psych Denies behavioral changes and Denies change in appetite Endo Denies change in body appearance, Denies cold intolerance, Denies excessive sweating and Denies fatigue Physical Exam Vital Signs: Last Vital Signs Pulse 92 09/15/24 11:06 BP 156/68 H 09/15/24 11:06 Pulse Ox 96 09/15/24 11:06 Oxygen Delivery Method Room Air 09/15/24 11:06 BMI result Body Mass Index 41.0 General: Not in any acute distress, comfortable, sitting on the chair Nutritional Appearance: well nourished and overweight Eyes: appearance normal, both eyes and all related structures; Alignment and Position: alignment normal and position normal Neck: No lymphadenopathy, no thyromegaly Resp: bilateral air entry equal, no added sounds present Cardio: Regular rate, regular rhythm; Heart sounds: S1 normal heart sound present and S2 normal heart sound present, no edema GI: soft, nontender, no guarding, no hepatosplenomegaly : bladder normal to inspection, bladder normal to palpation, no renal angle tenderness Skin: no rashes or lesions noted and elasticity normal, chronic erythema of the left lower extremity, 2nd toe crucked and swollen in right leg Neuro: oriented to person, oriented to place, oriented to time and moves all extremities Results Reviewed Nephrology Results: No Data to Display Assessment & Plan Assessment & Plan (1) Hypertension: Code(s): I10 - Essential (primary) hypertension Category: Medical Qualifiers: Hypertension type: primary hypertension Qualified Code(s): I10 - Essential (primary) hypertension (2) Renal cyst: Code(s): N28.1 - Cyst of kidney, acquired Category: Medical (3) 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 of other clotting factors Category: Medical Plan has edema, last TTE in 2022 was normal will check urine protein creatinine ratio, TSH, uric acid, urinalysis Orders: Orders Microalbumin, Random (w Creat) Today I10 - Essential (primary) hypertension Uric Acid Today M10.9 - Gout, unspecified TSH reflex Free T4 Today I10 - Essential (primary) hypertension Total Protein Urine Random Today I10 - Essential (primary) hypertension Creatinine Urine Today I10 - Essential (primary) hypertension Medications: New furosemide 40 mg PO BID 60 tabs 2RF Scribe Plan - Not visible on output: Renal cyst: Renal cysts are simple, 2.3 and 2.5 cm seen on ultrasound We will repeat an imaging in the near Hypertension: Continue lisinopril 40 mg We will increase the Lasix to 40 mg b.i.d. until the swelling subsides and then can continue daily Next visit we will possibly switch her to thiazides if the swelling is completely gone Advised to reduce weight, she said she will follow up with weight management clinic We will get TSH Toe pain: We will get uric acid levels Factor V deficiency: on warfarin, INR okay Coding Level of Care Code New Pt Level 4 (56070) Diagnoses Primary hypertension I10 Hypertension type: primary hypertension Renal cyst N28.1 Factor V deficiency D68.2
== END 2024-09-15 11:52 | disposition home or self-care (01) ==
LOC: HO.HKA 10:07
PROVIDERS: PCP Internal Medicine; Visit Provider Internal Medicine Critical Care Medicine
DX: I10 Essential (primary) hypertension (principal); N28.1 Cyst of kidney, acquired; D68.2 Hereditary deficiency of other clotting factors
CPT/HCPCS: 99204

== ENCOUNTER 2024-09-16 08:37 | Outpatient (REF) | payer OTHER, MEDICAID, SELFPAY ==
--- OUTSIDE RECORDS SUMMARY | 2024-09-16 08:49 | XMS_ITS | Clinical Summary ---
Author Organization [facility] Address [address] [place] [address] Phone Care Team Providers Care Battery Mechanic Name Role Phone Unavailable Primary Care Provider [...]
[2024-09-16 11:34] LABS: Uric Acid 5.5 mg/dL (2.4-5.7)
[2024-09-16 12:32] LABS: Creatinine Urine 63.14 mg/dL; Microalbumin Urine < 5.0 mg/L; Total Protein Urine Random < 7 mg/dL (<12)
== END 2024-09-16 08:38 | disposition home or self-care (01) ==
LOC: HO.10HDL 08:37
PROVIDERS: Visit Provider Internal Medicine Critical Care Medicine
DX: I10 Essential (primary) hypertension (principal); M10.9 Gout, unspecified; Z86.718 Personal history of other venous thrombosis and embolism; Z51.81 Encounter for therapeutic drug level monitoring; Z79.01 Long term (current) use of anticoagulants
CPT/HCPCS: 36415; 82043; 82570; 84156; 84443; 84550; 85610; 99211

== ENCOUNTER 2024-09-16 08:48 | Outpatient (AMB) | payer OTHER, MEDICAID, SELFPAY ==
[2024-09-16 08:58] LABS: Prothrombin Time Whole Bld POC 48.4 sec (11.1-13.5)
--- NOTE | 2024-09-16 09:04 | MHC.OFFVISCO ---
Intake Intake Visit Reasons: Anticoagulation Allergies shrimp [SHRIMP] Allergy (Mild, Verified 09/16/24 08:51) HIVES diltiazem Adverse Reaction (Severe, Uncoded 09/16/24 08:51) feet pain, swelling Medication List - Last Reconciled 09/16/24 by Lubna Layne RN ammonium lactate 12% 1 appl topical BID atorvastatin 40 mg PO DAILY blood sugar diagnostic (Accu-Chek Guide test strips) As directed 2 times per day blood-glucose meter TEST 2 TIMES DAILY blood-glucose meter (Accu-Chek Guide Glucose Meter) As directed cholecalciferol (vitamin D3) PO DAILY cyanocobalamin (vitamin B-12) 1,000 mcg PO DAILY esomeprazole magnesium (Nexium) 20 mg PO DAILY furosemide 40 mg PO BID glipizide 5 mg PO DAILY hydrocortisone 1% (Anti-Itch (hydrocortisone)) 1 appl topical BID PRN 2 weeks lancing device ACCU-CHECK DARLINE DEVICE lancing device (Adjustable Lancing Device) As directed lisinopril 40 mg PO DAILY 90 days phenytoin sodium extended 200 mg PO BID tizanidine 4 mg PO Q8H PRN vitamins A,C,U-ihzh-mohgrt (PreserVision AREDS) PO BID warfarin 5 mg See Protocol PO DAILY Nursing Note pt came to clinic this am after other on campus appt instead of 1 pm [facility] appt today INR 4.1out of therapeutic range Medications and supplements reviewed Patient status: saw renal today - she was very concerned about having 2 cysts on her kidneys - she was reassured by Md that they were very small and to not worry - he did however increase her furosemide to decrease the edema and pressure in her legs. She states her legs feel so much better Medications or supplements: furosemide increased from 20mg daily to 40 mg daily Diet: *had decreased appetite for past few days - busy Denies any signs and symptoms of bleeding or clotting or unusual bruising Bleeding, bruising, clotting discussed Nutritional guidance given: greens today cooked greens lower INR more than raw greens Dose: decrease today's dose to 2.5mg and she stated she will eat 1/2 cup spinach- she was advised to not over compensate her greens or the furosemide F/U INR Date : 1 week ?? Patient verbalizing understanding of instructions given with read back Anti-Coag Initial Assessment Social Hx Patient Tobacco Use Status: Never used Tobacco Tobacco use type: Cigarette alcohol intake: never Alcohol intake frequency: a few times a month Coding Level of Care Code Est Patient Level 1 Diagnoses Current use of anticoagulant therapy Z79.01 Results AMB INR Fingerstick AMB INR Fingerstick 4.0 Last Edit by Lubna Layne RN on 09/16/24 09:00 manual entry Assessment & Plan Assessment & Plan (1) Current use of anticoagulant therapy: Code(s): Z79.01 - [facility] (current) use of 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
== END 2024-09-16 09:05 | disposition home or self-care (01) ==
LOC: HO.ACS 08:48
PROVIDERS: PCP Internal Medicine; Visit Provider Internal Medicine Medical Oncology
DX: Z79.01 Long term (current) use of anticoagulants (principal)

== ENCOUNTER 2024-09-26 13:48 | Outpatient (AMB) | payer OTHER, MEDICAID, SELFPAY ==
[2024-09-26 14:17] LABS: Prothrombin Time Whole Bld POC 40.4 sec (11.1-13.5); ~PT, ~INR - Anti Coag Clinic 3.4 (0.9-1.1)
--- NOTE | 2024-09-26 14:27 | MHC.OFFVISCO ---
Intake Intake Visit Reasons: Anticoagulation Allergies shrimp [SHRIMP] Allergy (Mild, Verified 09/26/24 14:07) HIVES diltiazem Adverse Reaction (Severe, Uncoded 09/26/24 14:07) feet pain, swelling Medication List - Last Reconciled 09/26/24 by Lubna Layne RN ammonium lactate 12% 1 appl topical BID atorvastatin 40 mg PO DAILY betamethasone dipropionate 0.05% appl topical DAILY blood sugar diagnostic (Accu-Chek Guide test strips) As directed 2 times per day blood-glucose meter TEST 2 TIMES DAILY blood-glucose meter (Accu-Chek Guide Glucose Meter) As directed cholecalciferol (vitamin D3) PO DAILY cyanocobalamin (vitamin B-12) 1,000 mcg PO DAILY esomeprazole magnesium (Nexium) 20 mg PO DAILY furosemide 40 mg PO BID glipizide 5 mg PO DAILY hydrocortisone 1% (Anti-Itch (hydrocortisone)) 1 appl topical BID PRN 2 weeks lancing device ACCU-CHECK DARLINE DEVICE lancing device (Adjustable Lancing Device) As directed lisinopril 40 mg PO DAILY 90 days phenytoin sodium extended 200 mg PO BID tizanidine 4 mg PO Q8H PRN vitamins A,C,F-bcyv-qomkqx (PreserVision AREDS) PO BID warfarin 5 mg See Protocol PO DAILY Nursing Note INR: 3.4 OUT OF therapeutic range- pt took 5 mg daily instead 2.5mg x 1 day / 5mg x 6 days Medications and supplements reviewed Pt is concerned she may have gout- her labs show borderline close- she was advised to avoid spinach asparagus beans peas mushrooms ricjh meats and ETOH for a few days to see if she feels better Denies any signs and symptoms of bleeding or bruising or clotting. Bleeding, bruising, clotting discussed Nutritional guidance given - cooked greens like broccoli Dose: 2.5mg today then 5mg all other days F/U INR: 1 week Patient verbalizes understanding of instructions given Anti-Coag Initial Assessment Social Hx Patient Tobacco Use Status: Never used Tobacco Tobacco use type: Cigarette alcohol intake: never Alcohol intake frequency: a few times a month Coding Level of Care Code Est Patient Level 1 Diagnoses Current use of anticoagulant therapy Z79.01 Results AMB INR Fingerstick AMB INR Fingerstick 3.4 Last Edit by Lubna Layne RN on 09/26/24 14:19 manual entry Assessment & Plan Assessment & Plan (1) Current use of anticoagulant therapy: Code(s): 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
--- OUTSIDE RECORDS SUMMARY | 2024-09-26 15:02 | XMS_ITS | Clinical Summary ---
Author Organization [facility] Address [address] [place] [address] Phone Care Team Providers Care Sample Tester Name Role Phone Unavailable Primary Care Provider [...]
== END 2024-09-26 14:36 | disposition home or self-care (01) ==
LOC: HO.ACS 13:48
PROVIDERS: PCP Internal Medicine; Visit Provider Internal Medicine Medical Oncology
DX: Z79.01 Long term (current) use of anticoagulants (principal)

== ENCOUNTER → 2024-09-26 13:48 | Outpatient (BNVA) | payer OTHER, MEDICAID, SELFPAY | PROVIDERS: PCP Internal Medicine; Visit Provider Internal Medicine Medical Oncology | DX: I82.402 Acute embolism and thrombosis of unspecified deep veins of left lower extremity (principal); Z79.01 Long term (current) use of anticoagulants; Z51.81 Encounter for therapeutic drug level monitoring | CPT/HCPCS: 85610; 99211 ==

== ENCOUNTER 2024-09-30 13:16 | Outpatient (AMB) | payer OTHER, MEDICAID, SELFPAY ==
[2024-09-30 13:38] LABS: Prothrombin Time Whole Bld POC 47.3 sec (11.1-13.5); ~PT, ~INR - Anti Coag Clinic 3.9 (0.9-1.1)
--- NOTE | 2024-09-30 13:47 | MHC.OFFVISCO ---
Intake Intake Visit Reasons: Anticoagulation Allergies shrimp [SHRIMP] Allergy (Mild, Verified 09/30/24 13:34) HIVES diltiazem Adverse Reaction (Severe, Uncoded 09/30/24 13:34) feet pain, swelling Medication List - Last Reconciled 09/30/24 by Clover Granados, RN ammonium lactate 12% 1 appl topical BID atorvastatin 40 mg PO DAILY betamethasone dipropionate 0.05% appl topical DAILY blood sugar diagnostic (Accu-Chek Guide test strips) As directed 2 times per day blood-glucose meter TEST 2 TIMES DAILY blood-glucose meter (Accu-Chek Guide Glucose Meter) As directed cholecalciferol (vitamin D3) PO DAILY cyanocobalamin (vitamin B-12) 1,000 mcg PO DAILY esomeprazole magnesium (Nexium) 20 mg PO DAILY furosemide 40 mg PO BID glipizide 5 mg PO DAILY hydrocortisone 1% (Anti-Itch (hydrocortisone)) 1 appl topical BID PRN 2 weeks lancing device ACCU-CHECK DARLINE DEVICE lancing device (Adjustable Lancing Device) As directed lisinopril 40 mg PO DAILY 90 days phenytoin sodium extended 200 mg PO BID tizanidine 4 mg PO Q8H PRN vitamins A,C,X-fpca-liqnyp (PreserVision AREDS) PO BID warfarin 5 mg See Protocol PO DAILY Nursing Note INR: 3.9?out of therapeutic range of 2-3 Medications and supplements reviewed Patient status: feels well Medications or supplements: no changes Diet: Pt states has been eating a lot of cherries, strawberries and grapes all of which can raise the INR. Denies any signs and symptoms of bleeding or clotting or unusual bruising Bleeding, bruising, clotting discussed Nutritional guidance given: no fruit today. Pt to have a serving of broccoli today and blueberries instead of above listed fruits. Dose: pt already took today's dose of 5mg. Will decrease tomorrow's dose of 5mg to 2.5mg. Then 5mg X 6 days and 2.5mg X 1 day (Mon) F/U INR Date: 1 week?? Patient verbalizing understanding of instructions given. Anti-Coag Initial Assessment Social Hx Patient Tobacco Use Status: Never used Tobacco Tobacco use type: Cigarette alcohol intake: never Alcohol intake frequency: a few times a month Coding Level of Care Code Est Patient Level 1 Diagnoses Current use of anticoagulant therapy Z79.01 Assessment & Plan Assessment & Plan (1) Current use of anticoagulant therapy: Code(s): Z79.01 - [facility] (current) use of 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
== END 2024-09-30 13:51 | disposition home or self-care (01) ==
LOC: HO.ACS 13:16
PROVIDERS: PCP Internal Medicine; Visit Provider Internal Medicine Medical Oncology
DX: Z79.01 Long term (current) use of anticoagulants (principal)

== ENCOUNTER → 2024-09-30 13:16 | Outpatient (BNVA) | payer OTHER, MEDICAID, SELFPAY | PROVIDERS: PCP Internal Medicine; Visit Provider Internal Medicine Medical Oncology | DX: I82.402 Acute embolism and thrombosis of unspecified deep veins of left lower extremity (principal); Z79.01 Long term (current) use of anticoagulants; Z51.81 Encounter for therapeutic drug level monitoring | CPT/HCPCS: 85610; 99211 ==

== ENCOUNTER 2024-10-10 13:01 | Outpatient (AMB) | payer OTHER, MEDICAID, SELFPAY ==
[2024-10-10 13:07] LABS: Prothrombin Time Whole Bld POC 45.6 sec (11.1-13.5); ~PT, ~INR - Anti Coag Clinic 3.8 (0.9-1.1)
--- NOTE | 2024-10-10 13:23 | MHC.OFFVISCO ---
Intake Intake Visit Reasons: Anticoagulation Allergies shrimp [SHRIMP] Allergy (Mild, Verified 10/10/24 13:03) HIVES diltiazem Adverse Reaction (Severe, Uncoded 09/30/24 13:34) feet pain, swelling Medication List - Last Reconciled 10/10/24 by Celeste Chong, RN ammonium lactate 12% 1 appl topical BID atorvastatin 40 mg PO DAILY betamethasone dipropionate 0.05% appl topical DAILY blood sugar diagnostic (Accu-Chek Guide test strips) As directed 2 times per day blood-glucose meter TEST 2 TIMES DAILY blood-glucose meter (Accu-Chek Guide Glucose Meter) As directed cholecalciferol (vitamin D3) PO DAILY cyanocobalamin (vitamin B-12) 1,000 mcg PO DAILY esomeprazole magnesium (Nexium) 20 mg PO DAILY furosemide 40 mg PO BID glipizide 5 mg PO DAILY hydrocortisone 1% (Anti-Itch (hydrocortisone)) 1 appl topical BID PRN 2 weeks lancing device ACCU-CHECK DARLINE DEVICE lancing device (Adjustable Lancing Device) As directed lisinopril 40 mg PO DAILY 90 days phenytoin sodium extended 200 mg PO BID tizanidine 4 mg PO Q8H PRN vitamins A,C,O-zfpl-hfufre (PreserVision AREDS) PO BID warfarin 5 mg See Protocol PO DAILY Nursing Note PT.STATES THAT SHE ALREADY TOOK 5MGM WARFARIN THIS MORNING. NO CP,SOB,DIET/MED CHANGES,FALLS OR SX OF BLEEDING. PT.HAS CONSIDERABLY LESS EDEMA SINCE INCREASING LASIX. HOL WARFARIN TOMORROW THEN INCREASE WEEKLY DOSE AND FOLLOW-UP IN 2 WEEKS. GOOD UNDERSTANDING OF DOSING INSTR. 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
--- OUTSIDE RECORDS SUMMARY | 2024-10-10 14:23 | XMS_ITS | Clinical Summary ---
Author Organization [facility] Address [address] [place] [address] Phone Care Team Providers Care Shake Sawyer Name Role Phone Unavailable Primary Care Provider [...]
== END 2024-10-10 13:27 | disposition home or self-care (01) ==
LOC: HO.ACS 13:01
PROVIDERS: PCP Internal Medicine; Visit Provider Internal Medicine Medical Oncology
DX: Z79.01 Long term (current) use of anticoagulants (principal)

== ENCOUNTER → 2024-10-10 13:01 | Outpatient (BNVA) | payer OTHER, MEDICAID, SELFPAY | PROVIDERS: PCP Internal Medicine; Visit Provider Internal Medicine Medical Oncology | DX: Z79.01 Long term (current) use of anticoagulants (principal) | CPT/HCPCS: 85610; 99211 ==

== ENCOUNTER 2024-10-24 13:02 | Outpatient (AMB) | payer OTHER, MEDICAID, SELFPAY ==
--- OUTSIDE RECORDS SUMMARY | 2024-10-24 13:27 | XMS_ITS | Data Portability ---
Author Organization [facility], , [facility] Address [address] [place] [address] Assessment No assessment recorded. Plan of Treatment [...] ) ALT 42 U/L 30-65 Not Available [address], [address], 06/26/2008 02:36:06 11/29/1911/28/2005 hemog lobin A1C w/ mpg hemoglobin A1C 5.6 % 4.8-6. 0 goal: <7% in patie nts with diabe ernestine Not Available [address], [address], 06/26/2008 02:36:06 11/29/1911/28/2005 lipid panel cholesterol 245 mg/dL <200 mg/dL naz eable 200-2 39 mg/dL borde rline high >240 mg/dL high Not Available [address], [address], 06/26/2008 02:36:06 11/29/1911/28/2005 lipid panel triglyceride s 216 mg/dL <150 mg/dL helene l 150-1 99 mg/dL borde rline high 200-4 99 mg/dL high >500 mg/dL very high Not Available [address], [address], 06/26/2008 02:36:06 11/29/1911/28/2005 lipid panel direct HDL 62 mg/dL <40 mg/dL - major risk for CHD >60 mg/dL - negat danyell risk for CHD Not Available [address], [address], 06/26/2008 02:36:06 11/29/1911/28/2005 lipid panel direct LDL 141 mg/dL risk categ ory LDL goal _ CHD or CHD risk equiv alent s <100 mg/dL (10-y ear risk >20%) 2+ risk facto rs <130 mg/dL (10-y ear risk <= 20%) 0-1 risk facto r <160 mg/dL [facility] all peopl e with 0-1 risk facto r have A 10 year risk <10%, thus 10 year risk asses ment in peopl e with 0-1 risk facto r IS not kike faby. Not Available [address], [address], 06/26/2008 02:36:06 12/02/19 06 12/01/2005 protmei jha n time PT 41.1 secon ds 9.0-10 .4 high Not Available [address], [address], 06/26/2008 03:22:12 12/02/19 06 12/01/2005 proth rombi n time INR 4.1 0.9-1. 1 high sugge sted value of 2.0-3 .0 for proph ylaxi s of venou s thomb osis, and preve ntion of embol ism. sugge sted value of 2.5-3 .5 for preve ntion of recur rent embol ism or patie nts with mecha nical prost hetic heart valve s. Not Available [address], [address], 06/26/2008 03:22:12 12/16/19 06 12/15/2005 proth rombi n time PT 23.6 secon ds 9.0-10 .4 high Not Available [address], [address], 06/26/2008 03:41:29 12/16/19 06 12/15/2005 proth rombi n time INR 2.4 0.9-1. 1 high sugge sted value of 2.0-3 .0 for proph ylaxi s of venou s thomb osis, and preve ntion of embol ism. sugge sted value of 2.5-3 .5 for preve ntion of recur rent embol ism or patie nts with mecha nical prost hetic heart valve s. Not Available [address], [address], 06/26/2008 03:41:29 12/20/19 06 12/19/2005 proth rombi n time PT 23.3 secon ds 9.0-10 .4 high Not Available [address], [address], 06/26/2008 03:27:20 12/20/19 06 12/19/2005 proth rombi n time INR 2.4 0.9-1. 1 high sugge sted value of 2.0-3 .0 for proph ylaxi s of venou s thomb osis, and preve ntion of embol ism. sugge sted value of 2.5-3 .5 for preve ntion of recur rent embol ism or patie nts with mecha nical prost hetic heart valve s. Not Available [address], [address], 06/26/2008 03:27:20 Result Notes None recorded. 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 2005 Not Available [facility] 3 03:12:20 Benign essential hypertensi on 5143815 Active 2003 Not Available [facility] 3 03:12:20 Atrial fibrillati on 64233300 Active 2004 Not Available [facility] 3 03:12:20 Phlebitis of the femoral vein 341862437 Active 2003 Not Available [facility] 3 03:12:20 Major depression , 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 Active 2005 Not Available [facility] 3 03:12:20 Common cold 30294467 Completed 200403/16/2013 Not Available [facility] 3 02:00:29 Pain of joint of hand 899270368 Completed 200403/16/2013 Not Available [facility] 3 02:02:43 Edema of extremity 871593364 Completed 200303/16/2013 Not Available [facility] 3 02:02:55 On examinatio n - a rash Completed 200403/16/2013 Not Available [facility] 3 02:00:49 Seizure 04747123 Active 2004 Not Available [facility] 3 03:12:20 Type 2 diabetes mellitus without complicati on 095687559 Active 2003 Not Available [facility] 3 03:12:20 Acute maxillary sinusitis 95050370 Completed 200403/16/2013 Not Available [facility] 3 02:01:43 Abnormal weight gain 240395049 Active 2003 Not Available [facility] 3 03:12:20 Generalize d abdominal pain 986804445 Completed 200303/16/2013 Not Available [facility] 3 02:02:06 Hyperlipid emia 83495413 Active 2004 Not Available [facility] 3 03:12:20 Dysuria 98697431 Completed 200303/16/2013 Not Available [facility] 3 02:02:00 Peripheral venous insufficie ncy 53963906 Active 2003 Not Available [facility] 3 03:12:20 Hypothyroi dism 93679432 Active 2004 Not Available [facility] 3 03:12:20 Streptococ samm sore throat 17822529 Completed 200303/16/2013 Not Available [facility] 3 02:02:03 Acute bronchitis 09607326 Completed 200403/16/2013 Not Available [facility] 3 02:01:37 Problem Notes None [...] influenza, unspecified formulation 4 completed Not Available [facility] 03/12/2011 05:21:07 influenza, unspecified formulation 4 completed Not Available [facility] 03/12/2011 05:21:07 influenza, unspecified formulation 5 completed Not Available [facility] 03/12/2011 05:21:29 influenza, unspecified formulation 5 completed Not Available [facility] 03/12/2011 05:21:29 Past Encounters Encounter ID Performer Location Encounter Start Date Encounter Closed Date Diagnosis/Indication Diagnosis SNOMED-CT Code Diagnosis ICD10 Code Diagnosis Note [id number] Gricelda Layne MD , [facility], OFFICE [address] [place] [address] 11/16/2003 12:14:30 11/22/2003 09:27:14 [id number] Gricelda Layne MD , [facility], OFFICE [address] [place] [address] [place] [address] 1 12/22/2003 09:56:38 12/25/2003 15:40:32 [id number] Gricelda Layne MD , [facility], OFFICE [address] [place] [address] 01/19/2004 09:54:48 01/22/2004 08:56:58 [id number] FP TREATMENT NURSE [facility], [facility] OFFICE [address] [place] [address] 1 02/02/2004 09:07:12 02/02/2004 12:21:32 [id number] [facility] - [address] [place] [address] 02/02/2004 07:26:36 02/02/2004 09:21:04 [id number] FP TREATMENT NURSE [facility] OFFICE [address] [place] [address] [place] [address] 1 03/07/2004 08:50:31 03/07/2004 17:12:49 [id number] Gricelda Layne MD , [facility], OFFICE [address] [place] [address] [place] [address] 1 04/05/2004 09:48:00 04/09/2004 08:47:39 [id number] FP TREATMENT NURSE [facility] OFFICE [address] [place] [address] [place] [address] 1 04/15/2004 15:03:12 04/15/2004 17:36:23 [id number] MD RODGER Raza, [facility] OFFICE [address] [place] [address] [place] [address] 1 04/12/2004 10:53:34 05/17/2008 02:02:29 [id number] FP TREATMENT NURSE [facility], [facility] OFFICE [address] [place] [address] [place] [address] 1 04/22/2004 14:57:11 04/23/2004 09:26:19 [id number] Gricelda Layne MD , [facility], OFFICE [address] [place] [address] [place] [address] 1 05/03/2004 10:24:03 05/06/2004 08:51:52 [id number] Reid Ya , [facility], OFFICE [address] [place] [address] 05/20/2004 10:47:03 05/21/2004 08:35:20 [id number] Yarelis MADISON FP, [facility], OFFICE [address] [place] [address] 1 05/24/2004 11:19:37 05/27/2004 09:14:32 [id number] FP TREATMENT NURSE [facility], [facility], OFFICE [address] [place] [address] 1 05/27/2004 09:35:41 05/28/2004 09:13:28 [id number] Gricelda Layne MD FP, [facility], OFFICE [address] [place] [address] 1 06/04/2004 08:58:14 06/04/2004 17:23:42 [id number] FP TREATMENT NURSE [facility], [facility], OFFICE [address] [place] [address] 1 06/18/2004 10:00:16 06/18/2004 16:52:29 [id number] [facility] - [facility] [address] [facility] [place] [address] 06/18/2004 07:34:32 06/18/2004 09:59:04 [id number] Gricelda Layne MD FP, [facility], OFFICE [address] [place] [address] 1 06/27/2004 11:46:29 06/28/2004 09:09:13 [id number] FP TREATMENT NURSE [facility], [facility], OFFICE [address] [place] [address] 1 08/14/2004 11:47:27 08/15/2004 08:54:14 [id number] Gricelda Layne MD FP, [facility], OFFICE [address] [place] [address] 1 09/19/2004 16:03:15 09/20/2004 16:06:43 [id number] FP TREATMENT NURSE [facility], [facility], OFFICE [address] [place] [address] 1 10/17/2004 08:40:42 10/17/2004 15:32:26 [id number] [facility] - [facility] [address] [place] [address] 10/17/2004 07:29:38 10/17/2004 09:02:48 [id number] MD RODGER Raza, [facility], OFFICE [address] [place] [address] 1 10/25/2004 10:49:52 11/01/2004 08:36:26 [id number] FP TREATMENT NURSE [facility] FP, [facility], OFFICE [address] [place] [address] 1 11/19/2004 09:04:39 11/20/2004 08:14:19 [id number] FP TREATMENT NURSE [facility] FP, [facility], OFFICE [address] [place] [address] 1 11/26/2004 08:55:17 11/26/2004 16:24:15 [id number] FP TREATMENT NURSE [facility] FP, [facility], OFFICE [address] [place] [address] 1 12/03/2004 09:11:25 12/04/2004 14:38:40 [id number] [facility] [employer] , [facility] [address] [place] [address] 12/05/2004 10:50:31 12/05/2004 11:29:40 [id number] FP TREATMENT NURSE [facility] FP, [facility], OFFICE [address] [place] [address] 1 12/20/2004 08:19:23 12/20/2004 15:41:51 [id number] [facility] - [facility] [address] [place] [address] 12/20/2004 07:34:27 12/20/2004 08:05:52 [id number] FP TREATMENT NURSE [facility] FP, [facility], OFFICE [address] [place] [address] 1 12/27/2004 09:49:39 12/27/2004 15:08:31 [id number] MD RODGER Raza, [facility], OFFICE [address] [place] [address] 1 12/31/2004 11:01:20 01/02/2005 10:36:32 [id number] FP TREATMENT NURSE [facility] FP, [facility], OFFICE [address] [place] [address] 01/08/2005 10:14:21 01/08/2005 15:13:20 [id number] FP TREATMENT NURSE [facility] FP, [facility], OFFICE [address] [place] [address] 1 01/16/2005 10:11:30 01/16/2005 15:05:45 [id number] FP TREATMENT NURSE [facility] FP, [facility], OFFICE [address] [place] [address] 01/30/2005 10:31:42 01/30/2005 14:44:48 [id number] [facility] FLU CLINIC FP, [facility], OFFICE [address] [place] [address] 1 02/18/2005 15:03:31 02/18/2005 17:29:51 [id number] FP TREATMENT NURSE [facility] FP, [facility], OFFICE [address] [place] [address] 1 03/05/2005 14:53:36 03/05/2005 17:29:44 [id number] Gricelda Layne MD FP, [facility], OFFICE [address] [place] [address] 1 03/06/2005 11:53:52 03/06/2005 15:47:59 [id number] [facility] - [facility] [address] [place] [address] 03/05/2005 15:26:52 03/05/2005 15:27:17 [id number] Gricelda Layne MD FP, [facility], OFFICE [address] [place] [address] 1 03/18/2005 16:33:44 03/19/2005 08:28:27 [id number] FP TREATMENT NURSE [facility] FP, [facility], OFFICE [address] [place] [address] 1 03/26/2005 14:01:26 03/26/2005 16:56:44 [id number] FP TREATMENT NURSE [facility] FP, [facility], OFFICE [address] [place] [address] 1 04/25/2005 15:06:42 04/29/2005 10:24:01 [id number] FP TREATMENT NURSE [facility] FP, [facility], OFFICE [address] [place] [address] 04/02/2005 13:33:35 04/02/2005 14:27:19 [id number] [facility] - [facility] [address] [place] [address] 05/15/2005 13:10:28 05/15/2005 13:11:25 [id number] [facility] - [facility] [address] [place] [address] 06/02/2005 08:59:09 06/02/2005 09:00:10 [id number] Gricelda Layne MD FP, [facility], OFFICE [address] [place] [address] 1 06/09/2005 09:48:13 06/09/2005 17:49:27 [id number] [facility] - [facility] [address] [place] [address] 06/30/2005 07:39:14 06/30/2005 10:47:09 [id number] [facility] - [facility] [address] [place] [address] 07/15/2005 07:35:21 07/15/2005 10:38:06 [id number] [facility] - [facility] [address] [place] [address] 1 08/05/2005 07:38:24 08/05/2005 10:34:53 [id number] FP TREATMENT NURSE [facility] FP, [facility], OFFICE [address] [place] [address] 08/08/2005 11:53:47 08/08/2005 14:52:47 [id number] FP TREATMENT NURSE [facility] FP, [facility], OFFICE [address] [place] [address] 1 08/11/2005 10:19:48 08/11/2005 15:05:14 [id number] FP TREATMENT NURSE [facility] FP, [facility], OFFICE [address] [place] [address] 1 08/18/2005 10:57:06 08/18/2005 15:15:34 [id number] FP TREATMENT NURSE [facility] FP, [facility], OFFICE [address] [place] [address] 1 08/25/2005 11:48:03 08/25/2005 17:40:40 [id number] FP TREATMENT NURSE [facility] FP, [facility], OFFICE [address] [place] [address] 1 09/17/2005 11:31:19 09/17/2005 15:17:53 [id number] Gricelda Layne MD FP, [facility], OFFICE [address] [place] [address] 1 10/09/2005 16:05:18 10/10/2005 16:24:20 [id number] FP TREATMENT NURSE [facility] FP, [facility], OFFICE [address] [place] [address] 1 10/20/2005 09:54:51 10/20/2005 17:30:28 [id number] FP TREATMENT NURSE [facility] FP, [facility], OFFICE [address] [place] [address] 1 11/17/2005 10:54:13 11/17/2005 17:50:24 [id number] [facility] - [facility] [address] [place] [address] 11/28/2005 07:30:03 11/28/2005 08:43:26 [id number] FP TREATMENT NURSE [facility], [facility], OFFICE [address] [place] [address] 1 12/01/2005 10:50:57 05/17/2008 02:02:29 [id number] [facility] - [address] [place] [address] 12/01/2005 11:06:46 12/01/2005 11:07:08 [id number] FP TREATMENT NURSE [facility], [facility], OFFICE [address] [place] [address] 1 12/02/2005 09:40:49 12/02/2005 12:24:54 [id number] MD RODGER Raza, [facility], OFFICE [address] [place] [address] 1 12/05/2005 10:52:16 12/08/2005 09:32:36 [id number] FP TREATMENT NURSE [facility], [facility], OFFICE [address] [place] [address] 1 12/10/2005 14:20:32 12/10/2005 17:21:31 [id number] FP TREATMENT NURSE [facility], [facility], OFFICE [address] [place] [address] 1 12/12/2005 10:12:02 12/12/2005 13:55:19 [id number] [facility] - [address] [place] [address] 12/15/2005 07:56:58 12/15/2005 10:52:40 [id number] [facility] - [address] [place] [address] 12/19/2005 09:58:38 12/19/2005 09:58:49 Health Concerns Section Related Observation LastModified by Organization Detai ls LastModified Time None Recorded Concern Status LastModified by Organization Details LastModified Time None Recorded Advance Directives Directive None Recorded Payers Insurance Date Sequence Insurance Name Policy Number Policy Arce Covered Member ID Arce Member ID Guarantor Name 03/09/2006 1 FARHAN GALICIA - MEDICARE-[facility] [facility] (MEDICARE) Mary Jane Carpenter [id number] 03/09/2006 2 [facility] SUPPLE[facility]) Mary Jane Carpenter [id number] 11/16/2003 1 *SELF PAY* 03/09/2006 1 [facility] [id number] Mary Jane Falcongregor [id number] OBGyn Episode No OBEpisode recorded.
--- OUTSIDE RECORDS SUMMARY | 2024-10-24 13:27 | XMS_ITS | Clinical Summary ---
Author Organization [facility] Address [address] [place] [address] Phone Care Team Providers Care Campground Cleaning Attendant Name Role Phone Unavailable Primary Care Provider [...]
[2024-10-24 13:40] LABS: Prothrombin Time Whole Bld POC 29.1 sec (11.1-13.5); ~PT, ~INR - Anti Coag Clinic 2.4 (0.9-1.1)
--- NOTE | 2024-10-24 13:48 | MHC.OFFVISCO ---
Intake Intake Visit Reasons: Anticoagulation Allergies shrimp (SHRIMP) Allergy (Mild, Verified 10/24/24 13:27) HIVES diltiazem Adverse Reaction (Severe, Uncoded 10/24/24 13:27) feet pain, swelling Medication List - Last Reconciled 10/24/24 by Lubna Layne RN ammonium lactate 12% 1 appl topical BID atorvastatin 40 mg PO DAILY betamethasone dipropionate 0.05% appl topical DAILY blood sugar diagnostic (Accu-Chek Guide test strips) As directed 2 times per day blood-glucose meter TEST 2 TIMES DAILY blood-glucose meter (Accu-Chek Guide Glucose Meter) As directed cholecalciferol (vitamin D3) PO DAILY cyanocobalamin (vitamin B-12) 1,000 mcg PO DAILY esomeprazole magnesium (Nexium) 20 mg PO DAILY furosemide 40 mg PO BID glipizide 5 mg PO DAILY hydrocortisone 1% (Anti-Itch (hydrocortisone)) 1 appl topical BID PRN 2 weeks lancing device ACCU-CHECK DARLINE DEVICE lancing device (Adjustable Lancing Device) As directed lisinopril 40 mg PO DAILY 90 days phenytoin sodium extended 200 mg PO BID tizanidine 4 mg PO Q8H PRN vitamins A,C,N-mwnj-xpdrzr (PreserVision AREDS) PO BID warfarin 5 mg See Protocol PO DAILY Nursing Note INR: 2.4 in therapeutic range- pt did not hold her warfarin dose - she took 2.5mg instead - too nervous of clotting she said Medications and supplements reviewed No changes in health, diet, medications, or supplements, Denies any signs and symptoms of bleeding or bruising or clotting. Bleeding, bruising, clotting discussed Nutritional guidance given Dose: THE AMT SHE TOOK LAST WEEK 2.5mg x 1 day/ 5mg x 6 days F/U INR: 1 week Patient verbalizes understanding of instructions given Anti-Coag Initial Assessment Social Hx Patient Tobacco Use Status: Never used Tobacco Tobacco use type: Cigarette alcohol intake: never Alcohol intake frequency: a few times a month Coding Level of Care Code Est Patient Level 1 Diagnoses Current use of anticoagulant therapy Z79.01 Results AMB INR Fingerstick AMB INR Fingerstick 2.4 Last Edit by Lubna Layne RN on 10/24/24 13:43 MANUAL ENTRY Assessment & Plan Assessment & Plan (1) Current use of anticoagulant therapy: Code(s): Z79.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
== END 2024-10-24 14:28 | disposition home or self-care (01) ==
LOC: HO.ACS 13:02
PROVIDERS: PCP Internal Medicine; Visit Provider Internal Medicine Medical Oncology
DX: Z79.01 Long term (current) use of anticoagulants (principal)

== ENCOUNTER → 2024-10-24 13:02 | Outpatient (BNVA) | payer OTHER, MEDICAID, SELFPAY | PROVIDERS: PCP Internal Medicine; Visit Provider Internal Medicine Medical Oncology | DX: Z79.01 Long term (current) use of anticoagulants (principal) | CPT/HCPCS: 85610; 99211 ==

== ENCOUNTER 2024-10-29 18:12 | Emergency (ER) | payer OTHER, MEDICAID, SELFPAY ==
--- NOTE | ~2024-10-29 | US_ITS ---
CLINICAL HISTORY: ? DVT right thigh - pain w hx dvt Right lower extremity venous duplex ultrasound Comparison: None available Findings: The visualized deep veins are fully compressible with normal flow. No popliteal cyst. In the area of concern at the ankle there is edema within the soft tissues without superficial thrombophlebitis. Impression: No deep vein thrombosis. This document has been electronically signed by: Susan Landon MD on 10/29/2024 21:07:42
[2024-10-29 18:27] VITALS: BP 162/78; BP 175/57; PULSE 72; PULSE 77; RESP 18; TEMP 36.6; O2SAT 98; O2SAT 99; BMI 44.9
--- OUTSIDE RECORDS SUMMARY | 2024-10-29 19:06 | XMS_ITS | Data Portability ---
Author Organization [place] - [facility], , [facility] Address [address] [place] [address] Assessment No assessment recorded. Plan of Treatment [...] ) ALT 42 U/L 30-65 Not Available [address], [address], 06/26/2008 02:36:06 11/29/1911/28/2005 hemog lobin A1C w/ mpg hemoglobin A1C 5.6 % 4.8-6. 0 goal: <7% in patie nts with diabe ernestine Not Available [address], [address], 06/26/2008 02:36:06 11/29/1911/28/2005 lipid panel cholesterol 245 mg/dL <200 mg/dL naz eable 200-2 39 mg/dL borde rline high >240 mg/dL high Not Available [address], [address], 06/26/2008 02:36:06 11/29/1911/28/2005 lipid panel triglyceride s 216 mg/dL <150 mg/dL helene l 150-1 99 mg/dL borde rline high 200-4 99 mg/dL high >500 mg/dL very high Not Available [address], [address], 06/26/2008 02:36:06 11/29/1911/28/2005 lipid panel direct HDL 62 mg/dL <40 mg/dL - major risk for CHD >60 mg/dL - negat danyell risk for CHD Not Available [address], [address], 06/26/2008 02:36:06 11/29/1911/28/2005 lipid panel direct LDL 141 mg/dL risk categ ory LDL goal _ CHD or CHD risk equiv alent s <100 mg/dL (10-y ear risk >20%) 2+ risk facto rs <130 mg/dL (10-y ear risk <= 20%) 0-1 risk facto r <160 mg/dL [facility] all peopl e with 0-1 risk facto r have A 10 year risk <10%, thus 10 year risk asses ment in peopl e with 0-1 risk facto r IS not kike faby. Not Available [address], [address], 06/26/2008 02:36:06 12/02/19 06 12/01/2005 protmei jha n time PT 41.1 secon ds 9.0-10 .4 high Not Available [address], [address], 06/26/2008 03:22:12 12/02/19 06 12/01/2005 proth rombi n time INR 4.1 0.9-1. 1 high sugge sted value of 2.0-3 .0 for proph ylaxi s of venou s thomb osis, and preve ntion of embol ism. sugge sted value of 2.5-3 .5 for preve ntion of recur rent embol ism or patie nts with mecha nical prost hetic heart valve s. Not Available [address], [address], 06/26/2008 03:22:12 12/16/19 06 12/15/2005 proth rombi n time PT 23.6 secon ds 9.0-10 .4 high Not Available [address], [address], 06/26/2008 03:41:29 12/16/19 06 12/15/2005 proth rombi n time INR 2.4 0.9-1. 1 high sugge sted value of 2.0-3 .0 for proph ylaxi s of venou s thomb osis, and preve ntion of embol ism. sugge sted value of 2.5-3 .5 for preve ntion of recur rent embol ism or patie nts with mecha nical prost hetic heart valve s. Not Available [address], [address], 06/26/2008 03:41:29 12/20/19 06 12/19/2005 proth rombi n time PT 23.3 secon ds 9.0-10 .4 high Not Available [address], [address], 06/26/2008 03:27:20 12/20/19 06 12/19/2005 proth rombi n time INR 2.4 0.9-1. 1 high sugge sted value of 2.0-3 .0 for proph ylaxi s of venou s thomb osis, and preve ntion of embol ism. sugge sted value of 2.5-3 .5 for preve ntion of recur rent embol ism or patie nts with mecha nical prost hetic heart valve s. Not Available [address], [address], 06/26/2008 03:27:20 Result Notes None recorded. 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 Not Available [facility] 3 03:12:20 Thromboemb olic disorder 586005836 Active 2005 Not Available [facility] 3 03:12:20 Benign essential hypertensi on 2281210 Active 2003 Not Available [facility] 3 03:12:20 Atrial fibrillati on 98355544 Active 2004 Not Available [facility] 3 03:12:20 Phlebitis of the femoral vein 953519357 Active 2003 Not Available [facility] 3 03:12:20 Major depression , melancholi c type 778050520 Active 2005 [facility] Available [facility] 03:12:20 Common cold 46243109 Completed 200403/16/2013 Not Available [facility] 3 02:00:29 Pain of joint of hand 228441994 Completed 200403/16/2013 Not Available [facility] 3 02:02:43 Edema of extremity 254574624 Completed 200303/16/2013 Not Available [facility] 3 02:02:55 On examinatio n - a rash Completed 200403/16/2013 Not Available [facility] 3 02:00:49 Seizure 85634793 Active 2004 Not Available [facility] 3 03:12:20 Type 2 diabetes mellitus without complicati on 252479821 Active 2003 Not Available [facility] 3 03:12:20 Acute maxillary sinusitis 60908255 Completed 200403/16/2013 Not Available [facility] 3 02:01:43 Abnormal weight gain 008561893 Active 2003 Not Available [facility] 3 03:12:20 Generalize d abdominal pain 659310675 Completed 200303/16/2013 Not Available [facility] 3 02:02:06 Hyperlipid emia 63412745 Active 2004 Not Available [facility] 3 03:12:20 Dysuria 76820400 Completed 200303/16/2013 Not Available [facility] 3 02:02:00 Peripheral venous insufficie ncy 80824796 Active 2003 Not Available [facility] 3 03:12:20 Hypothyroi dism 59501196 Active 2004 Not Available [facility] 3 03:12:20 Streptococ samm sore throat 31518034 Completed 200303/16/2013 Not Available [facility] 3 02:02:03 Acute bronchitis 35624139 Completed 200403/16/2013 Not Available [facility] 3 02:01:37 Problem Notes None recorded. [...] unspecified formulation 4 completed Not Available [facility] 03/12/2011 05:21:07 influenza, unspecified formulation 4 completed Not Available [facility] 03/12/2011 05:21:07 influenza, unspecified formulation 5 completed Not Available [facility] 03/12/2011 05:21:29 influenza, unspecified formulation 5 completed Not Available [facility] 03/12/2011 05:21:29 Past Encounters Encounter ID Performer Location Encounter Start Date Encounter Closed Date Diagnosis/Indication Diagnosis SNOMED-CT Code Diagnosis ICD10 Code Diagnosis Note [id number] Gricelda Layne MD , [facility] OFFICE [address] [place] [address] 11/16/2003 12:14:30 11/22/2003 09:27:14 [id number] Gricelda Layne MD , [facility], OFFICE [address] [place] [address] [place] [address] 12/22/2003 09:56:38 12/25/2003 15:40:32 [id number] Gricelda Layne MD , [facility], OFFICE [address] [place] [address] 01/19/2004 09:54:48 01/22/2004 08:56:58 [id number] FP TREATMENT NURSE [facility], [facility] OFFICE [address] [place] [address] 02/02/2004 09:07:12 02/02/2004 12:21:32 [id number] [facility] LAB LAB - [address] [place] [address] 02/02/2004 07:26:36 02/02/2004 09:21:04 [id number] FP TREATMENT NURSE [facility] OFFICE [address] [place] [address] [place] [address] 03/07/2004 08:50:31 03/07/2004 17:12:49 [id number] Gricelda Layne MD , [facility], OFFICE [address] [place] [address] [place] [address] 04/05/2004 09:48:00 04/09/2004 08:47:39 [id number] FP TREATMENT NURSE [facility] OFFICE [address] [place] [address] [place] [id number] 04/15/2004 15:03:12 04/15/2004 17:36:23 [id number] MD RODGER Raza, [facility] OFFICE [address] [place] [address] [place] [address] 04/12/2004 10:53:34 05/17/2008 02:02:29 [id number] FP TREATMENT NURSE [facility], [facility] OFFICE [address] [place] [address] [place] [address] 04/22/2004 14:57:11 04/23/2004 09:26:19 [id number] Gricelda Layne MD , [facility], OFFICE [address] [place] [address] [place] [address] 05/03/2004 10:24:03 05/06/2004 08:51:52 [id number] Reid Ya , [facility], OFFICE [address] [place] [address] 05/20/2004 10:47:03 05/21/2004 08:35:20 [id number] Yarelis MADISON FP, [facility], OFFICE [address] [place] [id number] 05/24/2004 11:19:37 05/27/2004 09:14:32 [id number] FP TREATMENT NURSE [facility], [facility], OFFICE [address] [place] [address] 05/27/2004 09:35:41 05/28/2004 09:13:28 [id number] Gricelda Layne MD FP, [facility], OFFICE [address] [place] [address] 06/04/2004 08:58:14 06/04/2004 17:23:42 [id number] FP TREATMENT NURSE [facility], [facility], OFFICE [address] [place] [address] 06/18/2004 10:00:16 06/18/2004 16:52:29 [id number] [facility] - [facility] [address] [facility] [place] [address] 06/18/2004 07:34:32 06/18/2004 09:59:04 [id number] Gricelda Layne MD FP, [facility], OFFICE [address] [place] [id number] 06/27/2004 11:46:29 06/28/2004 09:09:13 [id number] FP TREATMENT NURSE [facility], [facility], OFFICE [address] [place] [address] 08/14/2004 11:47:27 08/15/2004 08:54:14 [id number] Gricelda Layne MD FP, [facility], OFFICE [address] [place] [address] 1 09/19/2004 16:03:15 09/20/2004 16:06:43 [id number] FP TREATMENT NURSE [facility], [facility], OFFICE [address] [place] [id number] 10/17/2004 08:40:42 10/17/2004 15:32:26 [id number] [facility] - [facility] [address] [place] [address] 10/17/2004 07:29:38 10/17/2004 09:02:48 [id number] MD RODGER Raza, [facility], OFFICE [address] [place] [address] 10/25/2004 10:49:52 11/01/2004 08:36:26 [id number] FP TREATMENT NURSE [facility] FP, [facility], OFFICE [address] [place] [address] 11/19/2004 09:04:39 11/20/2004 08:14:19 [id number] FP TREATMENT NURSE [facility] FP, [facility], OFFICE [address] [place] [address] 1 11/26/2004 08:55:17 11/26/2004 16:24:15 [id number] FP TREATMENT NURSE [facility] FP, [facility], OFFICE [address] [place] [address] 12/03/2004 09:11:25 12/04/2004 14:38:40 [id number] [facility] M[employer] [facility] [employer] [facility] Radiology , [facility] [address] [place] [address] 12/05/2004 10:50:31 12/05/2004 11:29:40 [id number] FP TREATMENT NURSE [facility] FP, [facility], OFFICE [address] [place] [address] 12/20/2004 08:19:23 12/20/2004 15:41:51 [id number] [facility] - [facility] [address] [place] [address] 12/20/2004 07:34:27 12/20/2004 08:05:52 [id number] FP TREATMENT NURSE [facility] FP, [facility], OFFICE [address] [place] [address] 12/27/2004 09:49:39 12/27/2004 15:08:31 [id number] MD RODGER Raza, [facility], OFFICE [address] [place] [address] 12/31/2004 11:01:20 01/02/2005 10:36:32 [id number] FP TREATMENT NURSE [facility] FP, [facility], OFFICE [address] [place] [address] 01/08/2005 10:14:21 01/08/2005 15:13:20 [id number] FP TREATMENT NURSE [facility] FP, [facility], OFFICE [address] [place] [address] 01/16/2005 10:11:30 01/16/2005 15:05:45 [id number] FP TREATMENT NURSE [facility] FP, [facility], OFFICE [address] [place] [address] 01/30/2005 10:31:42 01/30/2005 14:44:48 [id number] [facility] FLU [facility]IC FP, [facility], OFFICE [address] [place] [address] 02/18/2005 15:03:31 02/18/2005 17:29:51 [id number] FP TREATMENT NURSE [facility] FP, [facility], OFFICE [address] [place] [id number] 03/05/2005 14:53:36 03/05/2005 17:29:44 [id number] Gricelda Layne MD FP, [facility], OFFICE [address] [place] [id number] 03/06/2005 11:53:52 03/06/2005 15:47:59 [id number] [facility] - [facility] [address] [place] [id number] 03/05/2005 15:26:52 03/05/2005 15:27:17 [id number] Gricelda Layne MD FP, [facility], OFFICE [address] [place] [address] 03/18/2005 16:33:44 03/19/2005 08:28:27 [id number] FP TREATMENT NURSE [facility] FP, [facility], OFFICE [address] [place] [address] 03/26/2005 14:01:26 03/26/2005 16:56:44 [id number] FP TREATMENT NURSE [facility] FP, [facility], OFFICE [address] [place] [id number] 04/25/2005 15:06:42 04/29/2005 10:24:01 [id number] FP TREATMENT NURSE [facility] FP, [facility], OFFICE [address] [place] [address] 04/02/2005 13:33:35 04/02/2005 14:27:19 [id number] [facility] - [facility] [address] [place] [id number] 05/15/2005 13:10:28 05/15/2005 13:11:25 [id number] [facility] - [facility] [address] [place] [id number] 06/02/2005 08:59:09 06/02/2005 09:00:10 [id number] Gricelda Layne MD FP, [facility], OFFICE [address] [place] [address] 06/09/2005 09:48:13 06/09/2005 17:49:27 [id number] [facility] - [facility] [address] [place] [address] 06/30/2005 07:39:14 06/30/2005 10:47:09 [id number] [facility] - [facility] [address] [place] [address] 07/15/2005 07:35:21 07/15/2005 10:38:06 [id number] [facility] - [facility] [address] [place] [id number] 08/05/2005 07:38:24 08/05/2005 10:34:53 [id number] FP TREATMENT NURSE [facility] FP, [facility], OFFICE [address] [place] [address] 1 08/08/2005 11:53:47 08/08/2005 14:52:47 [id number] FP TREATMENT NURSE [facility] FP, [facility], OFFICE [address] [place] [address] 08/11/2005 10:19:48 08/11/2005 15:05:14 [id number] FP TREATMENT NURSE [facility] FP, [facility], OFFICE [address] [place] [address] 08/18/2005 10:57:06 08/18/2005 15:15:34 [id number] FP TREATMENT NURSE [facility] FP, [facility], OFFICE [address] [place] [address] 08/25/2005 11:48:03 08/25/2005 17:40:40 [id number] FP TREATMENT NURSE [facility] FP, [facility], OFFICE [address] [place] [address] 09/17/2005 11:31:19 09/17/2005 15:17:53 [id number] Gricelda Layne MD FP, [facility], OFFICE [address] [place] [address] 10/09/2005 16:05:18 10/10/2005 16:24:20 [id number] FP TREATMENT NURSE [facility] FP, [facility], OFFICE [address] [place] [id number] 10/20/2005 09:54:51 10/20/2005 17:30:28 [id number] FP TREATMENT NURSE [facility] FP, [facility], OFFICE [address] [place] [address] 1 11/17/2005 10:54:13 11/17/2005 17:50:24 [id number] [facility] - [facility] [address] [place] [address] 11/28/2005 07:30:03 11/28/2005 08:43:26 [id number] FP TREATMENT NURSE [facility], [facility], OFFICE [address] [place] [address] 12/01/2005 10:50:57 05/17/2008 02:02:29 [id number] [facility] - [address] [place] [address] 12/01/2005 11:06:46 12/01/2005 11:07:08 [id number] FP TREATMENT NURSE [facility], [facility], OFFICE [address] [place] [address] 12/02/2005 09:40:49 12/02/2005 12:24:54 [id number] MD RODGER Raza, [facility], OFFICE [address] [place] [id number] 1 12/05/2005 10:52:16 12/08/2005 09:32:36 [id number] FP TREATMENT NURSE [facility], [facility], OFFICE [address] [place] [address] 1 12/10/2005 14:20:32 12/10/2005 17:21:31 [id number] FP TREATMENT NURSE [facility], [facility], OFFICE [address] [place] [id number] 12/12/2005 10:12:02 12/12/2005 13:55:19 [id number] [facility] LAB - [address] [place] [address] 12/15/2005 07:56:58 12/15/2005 10:52:40 [id number] [facility] - [address] [place] [address] 12/19/2005 09:58:38 12/19/2005 09:58:49 Health Concerns Section Related Observation LastModified by Organization Detai ls LastModified Time None Recorded Concern Status LastModified by Organization Details LastModified Time None Recorded Advance Directives Directive None Recorded Payers Insurance Date Sequence Insurance Name Policy Number Policy Arce Covered Member ID Arce Member ID Guarantor Name 03/09/2006 1 [employer] - MEDICARE-[address] [employer] [employer] (MEDICARE) Mary Jane Carpenter [id number] 03/09/2006 [facility]IC[facility] SUPPLEMENT) Mary Jane Carpenter [id number] 11/16/2003 1 *SELF PAY* 03/09/2006 1 [facility] CLAIM[facility] [id number] Mary Jane Falcongregor [id number] OBGyn Episode No OBEpisode recorded.
[2024-10-29 19:07] LABS: MANUAL DIFF FLAG NO
[2024-10-29 19:09] LABS: Hematocrit 38.0 % (37.0-47.0); Hemoglobin 12.9 g/dl (12.0-16.0); Imm Gran Abs Auto 0.03 X10*3/uL (0.00-0.03); Imm Gran Pct Auto 0.5 % (0.0-0.4); Lymphocytes Absolute Auto 1.3 X10*3/uL (1.2-4.9); Mean Corpuscular HGB Conc 33.9 g/dl (31.0-35.0); Mean Corpuscular Hemoglobin 34.5 pg (27.0-33.0); Mean Corpuscular Volume 101.6 fL (80.0-98.0); NRBC Abs Auto 0.000 X10*3/uL (0.0-0.012); NRBC Pct Auto 0.0 /100WBC (0.0-0.2); Platelet Count 160 X10*3/uL (160-400); Red Blood Count 3.74 X10*6/uL (4.20-5.50); White Blood Count 5.8 X10*3/uL (4.8-10.8)
[2024-10-29 19:15] LABS: INTERNATIONAL NORM RATIO 2.3 (0.9-1.1); Prothrombin Time 26.3 SEC (10.9-12.4)
[2024-10-29 19:29] LABS: Anion Gap 11 (12-20); Blood Urea Nitrogen 20 mg/dL (9-16); Calcium 8.7 mg/dL (8.4-10.2); Carbon Dioxide 29 mmol/L (22-29); Chloride 107 mmol/L (96-108); Creatinine Clr Calc Pharmacy 68.4; Estimated Glomerular Filt Rate > 60; Potassium 4.4 mmol/L (3.3-5.1); Sodium 143 mmol/L (135-145)
--- NOTE | 2024-10-29 19:34 | ED_ITS ---
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 fairly compliant comes here as she noticed while walking pain in the right ankle radiating of the right thigh now localized to the right thigh on deep palpation no fall no injury patient does have it swelling of the lower extremities unless taking diuretics follow up by Nephrology Related Data Home Medications ?Medication ?Instructions ?Recorded ?Confirmed tizanidine 4 mg tablet 4 mg PO Q8H PRN muscle spast icity 03/06/23 10/24/24 phenytoin sodium extended 100 mg 200 mg PO BID 4 10/24/24 capsule cholecalciferol (vitamin D3) PO DAILY 09/15/24 5 vitamins A,C,R-xzmx-qtantl PO BID 09/15/24 10/24/24 [PreserVision AREDS] betamethasone dipropionate 0.05 % appl topical DAILY 0 09/26/24 10/24/24 topical cream Previous Rx's ?Medication ?Instructions ?Recorded lancing device #1 ea 02/10/20 ammonium lactate 12 % topical cream 1 applic topical B ID #140 grams 03/08/20 blood-glucose meter #1 ea 09/27/21 lancing device (Adjustable Lancing #1 ea 10/15/21 Device) blood-glucose meter (Accu-Chek #1 ea 12/22/23 Guide Glucose Meter) atorvastatin 40 mg tablet 40 mg PO DAILY #90 tabs 11/17 cyanocobalamin (vitamin B-12) 1,000 mcg PO DAILY #90 c aps 01/02/24 1,000 mcg capsule glipizide 5 mg tablet 5 mg PO DAILY #100 tabs 11/17 blood sugar diagnostic (Accu-Chek #100 ea 02/03/24 Guide test strips) lisinopril 40 mg tablet 40 mg PO DAILY 90 days #90 t abs 07/18/24 esomeprazole magnesium 20 mg 20 mg PO DAILY #90 caps 0 08/05/24 capsule,delayed release (Nexium) hydrocortisone 1 % topical cream 1 appl topical BID MD N skin 08/11/24 (Anti-Itch (hydrocortisone)) irritation 2 weeks #28.4 grams furosemide 40 mg tablet 40 mg PO BID #60 tabs warfarin 5 mg tablet 5 mg PO DAILY #90 tabs 10/05 Allergies Allergy/AdvReac Type Severity Reaction Status Date / Time shrimp (SHRIMP) Allergy Mild HIVES Verified 10/29/24 18:31 diltiazem AdvReac Severe feet pain, Uncoded 10/24/24 13:27 swelling Review of Systems 2 Review of Systems: Yes all other systems are reviewed and are negative [facility] Past Medical History Medical History PAF (paroxysmal atrial fibrillation) Atrial fibrillation Factor V Leiden DVT (deep venous thrombosis) Hyperlipidemia Hypertension Diabetes mellitus with coincident hypertension Surgical History History of lumpectomy of right breast History of appendectomy History of cholecystectomy Family History Family History Father Asthma Mother Diabetes Hypertension Colon cancer Other Substance use disorder Social History Social History Household Members: None Housing: Apartment Do you presently have visiting nurse or other home services: No Alcohol intake: never Patient Tobacco Use Status: Never used Tobacco Tobacco use type: Cigarette e-Cigarette/Vaping Use: Never Used Second Hand Smoke Exposure: No Advance Directives Date on File: 02/03/23 service: No Current occupational status: employed Cognitive needs: No Hearing needs: No Vision needs: No Physical Exam 2 Vital Signs: Vital Signs: Last Vital Signs Temp 98.5 F 10/29/24 22:16 Pulse 69 10/29/24 22:16 Resp 20 10/29/24 22:16 BP 175/69 H 10/29/24 22:16 Pulse Ox 97 10/29/24 22:16 O2 Del Method Room Air 10/29/24 22:16 BMI result Body Mass Index 44.9 Appearance: Alert. Oriented X3. No acute distress. Eyes: PERRLA, No Nystagmus ENT: Pharynx normal. Oral Mucosa moist Neck: Normal inspection. Neck supple. CVS: Normal heart rate and rhythm. Pulses normal. Respiratory: No respiratory distress. Equal air entry bilateral, no wheezing/rales/rhonchi Abdomen: Soft and nontender. Bowel sounds are present, no mass palpable, no CVA tenderness Skin: Skin warm and dry. Normal skin color. Normal skin turgor. Extremities: No lower extremity edema. No calf tenderness right thigh with deep tenderness in the medial aspect no palpable mass Neuro: Oriented X 3. No motor deficit. No sensory deficit.No cerebellar signs , cranial nerves II-XII intact Medical Decision Making Medical Decision Making [facility] Narrative: Patient has factor 5 Leiden deficiency on Coumadin with INR of 2.3 comes here with right thigh pain venous Doppler negative for DVT pain likely musculoskeletal Lab Data [facility] Lab Attestation statement: I reviewed the patient's lab results. 10/29/24 19:03 10/29/24 19:03 Labs: Lab Results 10/29/24 Range/Units 19:03 WBC 5.8 (4.8-10.8) X10*3/uL RBC 3.74 L (4.20-5.50) X10*6/uL Hgb 12.9 (12.0-16.0) g/dl Hct 38.0 (37.0-47.0) % MCV 101.6 H (80.0-98.0) fL MCH 34.5 H (27.0-33.0) pg MCHC 33.9 (31.0-35.0) g/dl RDW 13.3 (11.0-16.0) % Plt Count 160 (160-400) X10*3/uL MPV 9.6 (9.4-12.3) fL Immature Gran % (Auto) 0.5 H (0.0-0.4) % Neut % (Auto) 68.7 (45-73) % Lymph % (Auto) 23.1 (20-40) % Morgan % (Auto) 6.6 (2-11) % Eos % (Auto) 0.9 (0-4) % Baso % (Auto) 0.2 (0-2) % Lymph # (Auto) 1.3 (1.2-4.9) X10*3/uL Morgan # (Auto) 0.4 (0.1-1.2) X10*3/uL Eos # (Auto) 0.1 (0.0-0.4) X10*3/uL Baso # (Auto) 0.0 (0.0-0.2) X10*3/uL Abs Immat Gran (auto) 0.03 (0.00-0.03) X10*3/uL Absolute Neuts (auto) 4.0 (2.0-8.3) x10*3/uL Absolute Nucleated RBC 0.000 (0.0-0.012) X10*3/uL Nucleated RBC % (auto) 0.0 (0.0-0.2) /100WBC PT 26.3 H (10.9-12.4) SEC INR 2.3 H (0.9-1.1) Sodium 143 (135-145) mmol/L Potassium 4.4 (3.3-5.1) mmol/L Chloride 107 (96-108) mmol/L Carbon Dioxide 29 (22-29) mmol/L Anion Gap 11 L (12-20) BUN 20 H (9-16) mg/dL Creatinine 0.78 (0.5-1.4) mg/dL Estim Creat Clear Calc 68.4 Estimated GFR > 60 Random Glucose 124 H (60-115) mg/dL Calcium 8.7 (8.4-10.2) mg/dL Independent Interpretation I performed an independent interpretation of an: Ultrasound Radiology Impression Discussion of test interpretation with radiology: I have reviewed the radiologist's reading. Discharge Plan Discharge Clinical Impression: Musculoskeletal limb pain Patient Disposition: Home, Self-Care Instructions: Leg Pain (ED) Additional Instructions: No blood clots were seen in your right thigh Your pain is likely musculoskeletal Take Tylenol for pain as needed Prescriptions: No Action (DME) lancing device Misc See Rx Instructions .ROUTE .MEDSUPPLY Qty: 1 8RF Rx Instructions: ACCU-CHECK DARLINE DEVICE ammonium lactate 12 % cream 1 applic topical BID Qty: 140 6RF (DME) lancing device [Adjustable Lancing Device] Misc See Rx Instructions .Route Qty: 1 0RF Rx Instructions: As directed (DME) blood-glucose meter [Accu-Chek Guide Glucose Meter] Misc See Rx Instructions .Route Qty: 1 0RF Rx Instructions: As directed atorvastatin 40 mg tablet 40 mg PO DAILY Qty: 90 8RF cyanocobalamin (vitamin B-12) 1,000 mcg capsule 1,000 mcg PO DAILY Qty: 90 0RF glipizide 5 mg tablet 5 mg PO DAILY Qty: 100 2RF (DME) Accu-Chek Guide test strips Strip See Rx Instructions .Route Qty: 100 6RF Rx Instructions: As directed 2 times per day esomeprazole magnesium [Nexium] 20 mg capsule,delayed release(DR/EC) 20 mg PO DAILY Qty: 90 2RF warfarin 5 mg tablet 5 mg PO DAILY Qty: 90 2RF Protocol: Dose Management Condition: Thursday (Week One) Dose/Route: 5 mg Instruction: 1 x 5 mg tablet Condition: Thursday Dose/Route: 5 mg Instruction: 1 x 5 mg tablet Condition: Thursday Dose/Route: 5 mg Instruction: 1 x 5 mg tablet Condition: Thursday Dose/Route: 2.5 mg Instruction: 0.5 x 5 mg tablets Condition: Dose/Route: 5 mg Instruction: 1 x 5 mg tablet Condition: Thursday Dose/Route: 5 mg Instruction: 1 x 5 mg tablet Condition: Thursday Dose/Route: 5 mg Instruction: 1 x 5 mg tablet Condition: Thursday (Week Two) Dose/Route: 5 mg Instruction: 1 x 5 mg tablet Condition: Thursday Dose/Route: 5 mg Instruction: 1 x 5 mg tablet Condition: Thursday Dose/Route: 5 mg Instruction: 1 x 5 mg tablet Condition: Thursday Dose/Route: 2.5 mg Instruction: 0.5 x 5 mg tablets Condition: Dose/Route: 5 mg Instruction: 1 x 5 mg tablet Condition: Thursday Dose/Route: 5 mg Instruction: 1 x 5 mg tablet Condition: Thursday Dose/Route: 5 mg Instruction: 1 x 5 mg tablet Protocol Text: Adjustment Start Date: Thursday10/24/24 INR Value: 2.4 INR Date: 10/24/24 Recheck Date: 10/31/24 ([facility] [place]) blood-glucose meter Misc See Rx Instructions .ROUTE .MEDSUPPLY Qty: 1 0RF Rx Instructions: TEST 2 TIMES DAILY tizanidine 4 mg tablet 4 mg PO Q8H PRN (Reason: muscle spasticity) phenytoin sodium extended 100 mg capsule 200 mg PO BID lisinopril 40 mg tablet 40 mg PO DAILY 90 Days Qty: 90 1RF hydrocortisone [Anti-Itch (HC)] 1 % cream 1 appl topical BID PRN (Reason: skin irritation) 14 Days Qty: 28.4 0RF cholecalciferol (vitamin D3) PO DAILY Patient Comments: 1 TAB DAILY vitamins A,C,I-ngel-lhohxn [PreserVision AREDS] PO BID Patient Comments: 2 TABS DAILY furosemide 40 mg tablet 40 mg PO BID Qty: 60 2RF betamethasone dipropionate 0.05 % cream topical DAILY Interventions: ED Discharge Assessment Last Done: 10/29/24 22:16 Discharge Date/Time: 10/29/24 22:19 Print Language: Syriac
[2024-10-29 22:05] VITALS: BP 175/69; PULSE 69; RESP 20; TEMP 36.9; O2SAT 97
[2024-10-29 22:16] VITALS: BP 175/69; PULSE 69; RESP 20; TEMP 36.9; O2SAT 97
== END 2024-10-29 22:19 | disposition home or self-care (01) ==
PROVIDERS: Emergency Provider Internal Medicine
DX: M79.651 Pain in right thigh (principal); I82.409 Acute embolism and thrombosis of unspecified deep veins of unspecified lower extremity; Z79.01 Long term (current) use of anticoagulants
CPT/HCPCS: 36415; 80048; 85025; 85610; 93971; 99284

== ENCOUNTER → 2024-10-29 19:58 | Outpatient (BNV) | payer OTHER, MEDICAID, SELFPAY | PROVIDERS: Emergency Provider Internal Medicine; Visit Provider Radiology Diagnostic Radiology | DX: M79.651 Pain in right thigh (principal) | CPT/HCPCS: 93971 ==

== ENCOUNTER 2024-11-04 13:20 | Outpatient (AMB) | payer OTHER, MEDICAID, SELFPAY ==
--- OUTSIDE RECORDS SUMMARY | 2024-11-04 13:25 | XMS_ITS | Data Portability ---
Author Organization [place] - [facility], , [facility] Address [address] [place] [address] Assessment No assessment recorded. Plan of Treatment [...] ) ALT 42 U/L 30-65 Not Available [address], [address], 06/26/2008 02:36:06 11/29/1911/28/2005 hemog lobin A1C w/ mpg hemoglobin A1C 5.6 % 4.8-6. 0 goal: <7% in patie nts with diabe ernestine Not Available [address], [address], 06/26/2008 02:36:06 11/29/1911/28/2005 lipid panel cholesterol 245 mg/dL <200 mg/dL naz eable 200-2 39 mg/dL borde rline high >240 mg/dL high Not Available [address], [address], 06/26/2008 02:36:06 11/29/1911/28/2005 lipid panel triglyceride s 216 mg/dL <150 mg/dL helene l 150-1 99 mg/dL borde rline high 200-4 99 mg/dL high >500 mg/dL very high Not Available [address], [address], 06/26/2008 02:36:06 11/29/1911/28/2005 lipid panel direct HDL 62 mg/dL <40 mg/dL - major risk for CHD >60 mg/dL - negat danyell risk for CHD Not Available [address], [address], 06/26/2008 02:36:06 11/29/1911/28/2005 lipid panel direct LDL 141 mg/dL risk categ ory LDL goal _ CHD or CHD risk equiv alent s <100 mg/dL (10-y ear risk >20%) 2+ risk facto rs <130 mg/dL (10-y ear risk <= 20%) 0-1 risk facto r <160 mg/dL [facility] all peopl e with 0-1 risk facto r have A 10 year risk <10%, thus 10 year risk asses ment in peopl e with 0-1 risk facto r IS not kike faby. Not Available [address], [address], 06/26/2008 02:36:06 12/02/19 06 12/01/2005 protmei jha n time PT 41.1 secon ds 9.0-10 .4 high Not Available [address], [address], 06/26/2008 03:22:12 12/02/19 06 12/01/2005 proth rombi n time INR 4.1 0.9-1. 1 high sugge sted value of 2.0-3 .0 for proph ylaxi s of venou s thomb osis, and preve ntion of embol ism. sugge sted value of 2.5-3 .5 for preve ntion of recur rent embol ism or patie nts with mecha nical prost hetic heart valve s. Not Available [address], [address], 06/26/2008 03:22:12 12/16/19 06 12/15/2005 proth rombi n time PT 23.6 secon ds 9.0-10 .4 high Not Available [address], [address], 06/26/2008 03:41:29 12/16/19 06 12/15/2005 proth rombi n time INR 2.4 0.9-1. 1 high sugge sted value of 2.0-3 .0 for proph ylaxi s of venou s thomb osis, and preve ntion of embol ism. sugge sted value of 2.5-3 .5 for preve ntion of recur rent embol ism or patie nts with mecha nical prost hetic heart valve s. Not Available [address], [address], 06/26/2008 03:41:29 12/20/19 06 12/19/2005 proth rombi n time PT 23.3 secon ds 9.0-10 .4 high Not Available [address], [address], 06/26/2008 03:27:20 12/20/19 06 12/19/2005 proth rombi n time INR 2.4 0.9-1. 1 high sugge sted value of 2.0-3 .0 for proph ylaxi s of venou s thomb osis, and preve ntion of embol ism. sugge sted value of 2.5-3 .5 for preve ntion of recur rent embol ism or patie nts with mecha nical prost hetic heart valve s. Not Available [address], [address], 06/26/2008 03:27:20 Result Notes None recorded. 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 Active 2005 Not Available [facility] 3 03:12:20 Benign essential hypertensi on 8596079 Active 2003 Not Available [facility] 3 03:12:20 Atrial fibrillati on 93045378 Active 2004 Not Available [facility] 3 03:12:20 Phlebitis of the femoral vein 463630562 Active 2003 Not Available [facility] 3 03:12:20 Major depression , melancholi c type 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 Active 2005 Not Available [facility] 3 03:12:20 Common cold 44713437 Completed 200403/16/2013 Not Available [facility] 3 02:00:29 Pain of joint of hand 718731852 Completed 200403/16/2013 Not Available [facility] 3 02:02:43 Edema of extremity 184243132 Completed 200303/16/2013 Not Available [facility] 3 02:02:55 On examinatio n - a rash Completed 200403/16/2013 Not Available [facility] 3 02:00:49 Seizure 28885019 Active 2004 Not Available [facility] 3 03:12:20 Type 2 diabetes mellitus without complicati on 566314278 Active 2003 Not Available [facility] 3 03:12:20 Acute maxillary sinusitis 96695143 Completed 200403/16/2013 Not Available [facility] 3 02:01:43 Abnormal weight gain 349484515 Active 2003 Not Available [facility] 3 03:12:20 Generalize d abdominal pain 220276224 Completed 200303/16/2013 Not Available [facility] 3 02:02:06 Hyperlipid emia 87723635 Active 2004 Not Available [facility] 3 03:12:20 Dysuria 39902736 Completed 200303/16/2013 Not Available [facility] 3 02:02:00 Peripheral venous insufficie ncy 52138812 Active 2003 Not Available formerly [facility] 3 03:12:20 Hypothyroi dism 00127511 Active 2004 Not Available formerly [facility] 3 03:12:20 Streptococ samm sore throat 34364580 Completed 200303/16/2013 Not Available [facility] 3 02:02:03 Acute bronchitis 44459907 Completed 200403/16/2013 Not Available [facility] 3 02:01:37 Problem Notes None [...] influenza, unspecified formulation 4 completed Not Available [facility] 03/12/2011 05:21:07 influenza, unspecified formulation 4 completed Not Available [facility] 03/12/2011 05:21:07 influenza, unspecified formulation 5 completed Not Available [facility] 03/12/2011 05:21:29 influenza, unspecified formulation 5 completed Not Available [facility] 03/12/2011 05:21:29 Past Encounters Encounter ID Performer Location Encounter Start Date Encounter Closed Date Diagnosis/Indication Diagnosis SNOMED-CT Code Diagnosis ICD10 Code Diagnosis Note [id number] Gricelda Layne MD , [facility] [place] [address] [place] [address] 11/16/2003 12:14:30 11/22/2003 09:27:14 [id number] Gricelda Layne MD , [facility] [place] [address] [place] [address] [place] [address] 12/22/2003 09:56:38 12/25/2003 15:40:32 [id number] Gricelda Layne MD , [facility] [place] [address] [place] [address] 01/19/2004 09:54:48 01/22/2004 08:56:58 [id number] FP TREATMENT NURSE [facility] OFFICE [address] [place] [address] 02/02/2004 09:07:12 02/02/2004 12:21:32 [id number] [facility] - [address] [place] [address] 02/02/2004 07:26:36 02/02/2004 09:21:04 [id number] FP TREATMENT NURSE [facility] OFFICE [address] [place] [address] [place] [address] 1 03/07/2004 08:50:31 03/07/2004 17:12:49 [id number] Gricelda Layne MD , [facility] [address] [place] [address] [place] [address] 04/05/2004 09:48:00 04/09/2004 08:47:39 [id number] FP TREATMENT NURSE [facility] OFFICE [address] [place] [address] [place] [address] 1 04/15/2004 15:03:12 04/15/2004 17:36:23 [id number] MD RODGER Raza, [facility] OFFICE [address] [place] [address] [place] [address] 04/12/2004 10:53:34 05/17/2008 02:02:29 [id number] FP TREATMENT NURSE [facility] OFFICE [address] [place] [address] [place] [address] 04/22/2004 14:57:11 04/23/2004 09:26:19 [id number] Gricelda Layne MD , [facility] [address] [place] [address] [place] [address] 05/03/2004 10:24:03 05/06/2004 08:51:52 [id number] Reid Ya , [facility] [place] [address] [place] [address] 05/20/2004 10:47:03 05/21/2004 08:35:20 [id number] Yarelis MAD[place] FP, [facility] [place] [address] [place] [address] 05/24/2004 11:19:37 05/27/2004 09:14:32 [id number] FP TREATMENT NURSE [facility] [place] [address] [place] [address] 05/27/2004 09:35:41 05/28/2004 09:13:28 [id number] Gricelda Layne MD FP, [facility] [address] [place] [address] 06/04/2004 08:58:14 06/04/2004 17:23:42 [id number] FP TREATMENT NURSE [facility] [place] [address] [place] [address] 06/18/2004 10:00:16 06/18/2004 16:52:29 [id number] [facility] - [facility] [address] [facility] [place] [address] 06/18/2004 07:34:32 06/18/2004 09:59:04 [id number] Gricelda Layne MD FP, [facility] [place] [address] [place] [address] 06/27/2004 11:46:29 06/28/2004 09:09:13 [id number] FP TREATMENT NURSE [facility] [place] [address] [place] [address] 08/14/2004 11:47:27 08/15/2004 08:54:14 [id number] Gricelda Layne MD FP, [facility] [place] [address] [place] [address] 09/19/2004 16:03:15 09/20/2004 16:06:43 [id number] FP TREATMENT NURSE [facility] [place] [address] [place] [address] 10/17/2004 08:40:42 10/17/2004 15:32:26 [id number] [facility] - [facility] [address] [place] [address] 10/17/2004 07:29:38 10/17/2004 09:02:48 [id number] MD RODGER Raza, [facility] [place] [address] [place] [address] 10/25/2004 10:49:52 11/01/2004 08:36:26 [id number] FP TREATMENT NURSE [facility] FP, [facility] [place] [address] [place] [address] 11/19/2004 09:04:39 11/20/2004 08:14:19 [id number] FP TREATMENT NURSE [facility] FP, [facility] [place] [address] [place] [address] 11/26/2004 08:55:17 11/26/2004 16:24:15 [id number] FP TREATMENT NURSE [facility] FP, [facility] [place] [address] [place] [address] 12/03/2004 09:11:25 12/04/2004 14:38:40 [id number] [facility] [facility] [employer] , [facility] [address] [place] [address] 12/05/2004 10:50:31 12/05/2004 11:29:40 [id number] FP TREATMENT NURSE [facility] FP, [facility] [place] [address] [place] [address] 12/20/2004 08:19:23 12/20/2004 15:41:51 [id number] [facility] - [facility] [address] [place] [address] 12/20/2004 07:34:27 12/20/2004 08:05:52 [id number] FP TREATMENT NURSE [facility] FP, [facility] [place] [address] [place] [address] 12/27/2004 09:49:39 12/27/2004 15:08:31 [id number] MD RODGER Raza, [facility] [address] [place] [address] 12/31/2004 11:01:20 01/02/2005 10:36:32 [id number] FP TREATMENT NURSE [facility] FP, [facility] [place] [address] [place] [id number] 01/08/2005 10:14:21 01/08/2005 15:13:20 [id number] FP TREATMENT NURSE [facility] FP, [facility] [place] [address] [place] [address] 01/16/2005 10:11:30 01/16/2005 15:05:45 [id number] FP TREATMENT NURSE [facility] FP, [facility] [place] [address] [place] [address] 01/30/2005 10:31:42 01/30/2005 14:44:48 [id number] [facility] FP, [facility] [place] [address] [place] [address] 02/18/2005 15:03:31 02/18/2005 17:29:51 [id number] FP TREATMENT NURSE [facility] FP, [facility] [place] [address] [place] [address] 03/05/2005 14:53:36 03/05/2005 17:29:44 [id number] Gricelda Layne MD FP, [facility] [place] [address] [place] [address] 1 03/06/2005 11:53:52 03/06/2005 15:47:59 [id number] [facility] - [facility] [address] [place] [address] 03/05/2005 15:26:52 03/05/2005 15:27:17 [id number] Gricelda Layne MD FP, [facility] [place] [address] [place] [address] 03/18/2005 16:33:44 03/19/2005 08:28:27 [id number] FP TREATMENT NURSE [facility] FP, [facility] [place] [address] [place] [address] 1 03/26/2005 14:01:26 03/26/2005 16:56:44 [id number] FP TREATMENT NURSE [facility] FP, [facility] [place] [address] [place] [address] 1 04/25/2005 15:06:42 04/29/2005 10:24:01 [id number] FP TREATMENT NURSE [facility] FP, [facility] [place] [address] [place] [address] 04/02/2005 13:33:35 04/02/2005 14:27:19 [id number] [facility] - [facility] [address] [place] [address] 05/15/2005 13:10:28 05/15/2005 13:11:25 [id number] [facility] - [facility] [address] [place] [address] 06/02/2005 08:59:09 06/02/2005 09:00:10 [id number] Gricelda Layne MD FP, [facility] [place] [address] [place] [address] 06/09/2005 09:48:13 06/09/2005 17:49:27 [id number] [facility] - [facility] [address] [place] [address] 06/30/2005 07:39:14 06/30/2005 10:47:09 [id number] [facility] - [facility] [address] [place] [address] 07/15/2005 07:35:21 07/15/2005 10:38:06 [id number] [facility] - [facility] [address] [place] [address] 08/05/2005 07:38:24 08/05/2005 10:34:53 [id number] FP TREATMENT NURSE [facility] FP, [facility] [place] [address] [place] [address] 1 08/08/2005 11:53:47 08/08/2005 14:52:47 [id number] FP TREATMENT NURSE [facility] FP, [facility] [place] [address] [place] [address] 1 08/11/2005 10:19:48 08/11/2005 15:05:14 [id number] FP TREATMENT NURSE [facility] FP, [facility] [place] [address] [place] [address] 08/18/2005 10:57:06 08/18/2005 15:15:34 [id number] FP TREATMENT NURSE [facility] FP, [facility] [place] [address] [place] [address] 1 08/25/2005 11:48:03 08/25/2005 17:40:40 [id number] FP TREATMENT NURSE [facility] FP, [facility] [place] [address] [place] [address] 1 09/17/2005 11:31:19 09/17/2005 15:17:53 [id number] Gricelda Layne MD FP, [facility] [place] [address] [place] [address] 10/09/2005 16:05:18 10/10/2005 16:24:20 [id number] FP TREATMENT NURSE [facility] FP, [facility] [place] [address] [place] [address] 1 10/20/2005 09:54:51 10/20/2005 17:30:28 [id number] FP TREATMENT NURSE [facility] FP, [facility] [place] [address] [place] [address] 1 11/17/2005 10:54:13 11/17/2005 17:50:24 [id number] [facility] - [facility] [address] [place] [id number] 11/28/2005 07:30:03 11/28/2005 08:43:26 [id number] FP TREATMENT NURSE [facility] [place] [address] [place] [address] 12/01/2005 10:50:57 05/17/2008 02:02:29 [id number] [facility] - [address] Samantha [place] [address] 12/01/2005 11:06:46 12/01/2005 11:07:08 [id number] FP TREATMENT NURSE [facility] [place]ICE [address] [place] [address] 1 12/02/2005 09:40:49 12/02/2005 12:24:54 [id number] MD RODGER Raza, [facility] OFFICE [address] [place] [address] 1 12/05/2005 10:52:16 12/08/2005 09:32:36 [id number] FP TREATMENT NURSE [facility] [place]ICE [address] [place] [address] 1 12/10/2005 14:20:32 12/10/2005 17:21:31 [id number] FP TREATMENT NURSE [facility] [place] [address] [place] [address] 1 12/12/2005 10:12:02 12/12/2005 13:55:19 [id number] [facility] - [address] [place] [address] 12/15/2005 07:56:58 12/15/2005 10:52:40 [id number] [facility] - [address] [place] [address] 12/19/2005 09:58:38 12/19/2005 09:58:49 Health Concerns Section Related Observation LastModified by Organization Detai ls LastModified Time None Recorded Concern Status LastModified by Organization Details LastModified Time None Recorded Advance Directives Directive None Recorded Payers Insurance Date Sequence Insurance Name Policy Number Policy Arce Covered Member ID Arce Member ID Guarantor Name 03/09/2006 1 [employer] GALIC[employer] - MEDICARE-[address] [employer] BOARD (MEDICARE) Mary Jane Carpenter [id number] 03/09/2006 [address] [facility] (MEDICARE SUPPLEMENT) Mary Jane Carpenter [id number] 11/16/2003 1 *SELF PAY* 03/09/2006 1 [facility] [id number] Mary Jane Falcongregor [id number] OBGyn Episode No OBEpisode recorded.
--- OUTSIDE RECORDS SUMMARY | 2024-11-04 13:25 | XMS_ITS | Clinical Summary ---
Author Organization [facility] Address [address] [place] [address] Phone Care Team Providers Care Communications Clerk Name Role Phone Unavailable Primary Care Provider [...] Influencers of Health Screening 05/26/2024 Influenza Vaccine (#1) 2024 HIB Vaccines Aged Out No longer [...]
[2024-11-04 13:29] LABS: Prothrombin Time Whole Bld POC 36.0 sec (11.1-13.5); ~PT, ~INR - Anti Coag Clinic 3.0 (0.9-1.1)
--- NOTE | 2024-11-04 13:47 | MHC.OFFVISCO ---
Intake Intake Visit Reasons: Anticoagulation Allergies shrimp (SHRIMP) Allergy (Mild, Verified 10/29/24 18:31) HIVES diltiazem Adverse Reaction (Severe, Uncoded 10/24/24 13:27) feet pain, swelling Nursing Note INR: 3.0 in therapeutic range of 2-3 Pt was in the ER on 10/29/24 to r/o clot right leg. It was swollen and painful. Doppler studies were negative for clot. Pt is wearing compression stockings and denies pain at this time. Medications and supplements reviewed No changes inmedications, or supplements, or diet Denies any signs and symptoms of bleeding or bruising or clotting. Bleeding, bruising, clotting discussed Nutritional guidance given to have a serving of greens today Dose: 5mg X 6 days and 2.5mg X 1 day (Thu) F/U INR: 1 week Patient verbalizes understanding of instructions given Anti-Coag Initial Assessment Social Hx Patient Tobacco Use Status: Never used Tobacco Tobacco use type: Cigarette alcohol intake: never Alcohol intake frequency: holidays/special occasions only Coding Level of Care Code Est Patient Level 1 Diagnoses Current use of anticoagulant therapy Z79.01 Results AMB INR Fingerstick AMB INR Fingerstick 3.0 Last Edit by Clover Granados RN on 11/04/24 13:31 interface delay Assessment & Plan Assessment & Plan (1) Current use of anticoagulant therapy: Code(s): 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
== END 2024-11-04 13:52 | disposition home or self-care (01) ==
LOC: HO.ACS 13:20
PROVIDERS: Visit Provider Internal Medicine Medical Oncology
DX: Z79.01 Long term (current) use of anticoagulants (principal)

== ENCOUNTER → 2024-11-04 13:20 | Outpatient (BNVA) | payer OTHER, MEDICAID, SELFPAY | PROVIDERS: Visit Provider Internal Medicine Medical Oncology | DX: Z86.718 Personal history of other venous thrombosis and embolism (principal); Z79.01 Long term (current) use of anticoagulants; Z51.81 Encounter for therapeutic drug level monitoring | CPT/HCPCS: 85610; 99211 ==

== ENCOUNTER 2024-11-11 12:27 | Outpatient (AMB) | payer OTHER, MEDICAID, SELFPAY ==
--- OUTSIDE RECORDS SUMMARY | 2024-11-11 12:28 | XMS_ITS | Data Portability ---
Author Organization [place] - [facility], , [facility] Address [address] [place] [address] Assessment No assessment recorded. Plan of Treatment [...] ) ALT 42 U/L 30-65 Not Available [address], [address], 06/26/2008 02:36:06 11/29/1911/28/2005 hemog lobin A1C w/ mpg hemoglobin A1C 5.6 % 4.8-6. 0 goal: <7% in patie nts with diabe ernestine Not Available [address], [address], 06/26/2008 02:36:06 11/29/1911/28/2005 lipid panel cholesterol 245 mg/dL <200 mg/dL naz eable 200-2 39 mg/dL borde rline high >240 mg/dL high Not Available [address], [address], 06/26/2008 02:36:06 11/29/1911/28/2005 lipid panel triglyceride s 216 mg/dL <150 mg/dL helene l 150-1 99 mg/dL borde rline high 200-4 99 mg/dL high >500 mg/dL very high Not Available [address], [address], 06/26/2008 02:36:06 11/29/1911/28/2005 lipid panel direct HDL 62 mg/dL <40 mg/dL - major risk for CHD >60 mg/dL - negat danyell risk for CHD Not Available [address], [address], 06/26/2008 02:36:06 11/29/1911/28/2005 lipid panel direct LDL 141 mg/dL risk categ ory LDL goal _ CHD or CHD risk equiv alent s <100 mg/dL (10-y ear risk >20%) 2+ risk facto rs <130 mg/dL (10-y ear risk <= 20%) 0-1 risk facto r <160 mg/dL [facility] all peopl e with 0-1 risk facto r have A 10 year risk <10%, thus 10 year risk asses ment in peopl e with 0-1 risk facto r IS not kike faby. Not Available [address], [address], 06/26/2008 02:36:06 12/02/19 06 12/01/2005 protmei jha n time PT 41.1 secon ds 9.0-10 .4 high Not Available [address], [address], 06/26/2008 03:22:12 12/02/19 06 12/01/2005 proth rombi n time INR 4.1 0.9-1. 1 high sugge sted value of 2.0-3 .0 for proph ylaxi s of venou s thomb osis, and preve ntion of embol ism. sugge sted value of 2.5-3 .5 for preve ntion of recur rent embol ism or patie nts with mecha nical prost hetic heart valve s. Not Available [address], [address], 06/26/2008 03:22:12 12/16/19 06 12/15/2005 proth rombi n time PT 23.6 secon ds 9.0-10 .4 high Not Available [address], [address], 06/26/2008 03:41:29 12/16/19 06 12/15/2005 proth rombi n time INR 2.4 0.9-1. 1 high sugge sted value of 2.0-3 .0 for proph ylaxi s of venou s thomb osis, and preve ntion of embol ism. sugge sted value of 2.5-3 .5 for preve ntion of recur rent embol ism or patie nts with mecha nical prost hetic heart valve s. Not Available [address], [address], 06/26/2008 03:41:29 12/20/19 06 12/19/2005 proth rombi n time PT 23.3 secon ds 9.0-10 .4 high Not Available [address], [address], 06/26/2008 03:27:20 12/20/19 06 12/19/2005 proth rombi n time INR 2.4 0.9-1. 1 high sugge sted value of 2.0-3 .0 for proph ylaxi s of venou s thomb osis, and preve ntion of embol ism. sugge sted value of 2.5-3 .5 for preve ntion of recur rent embol ism or patie nts with mecha nical prost hetic heart valve s. Not Available [address], [address], 06/26/2008 03:27:20 Result Notes None recorded. 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 Not Available [facility] 3 03:12:20 Edema of extremity 608128325 Completed 200303/16/2013 Not Available [facility] 3 02:02:55 Type 2 diabetes mellitus without complicati on 792267015 Active 2003 Not Available [facility] 3 03:12:20 Essential hypertensi on 90573208 Active 2003 Not Available [facility] 3 03:12:20 Abnormal weight gain 054852674 Active 2003 Not Available [facility] 3 03:12:20 Generalize d abdominal pain 023125080 Completed 200303/16/2013 Not Available [facility] 3 02:02:06 Streptococ samm sore throat 04587343 Completed 200303/16/2013 Not Available [facility] 3 02:02:03 Cough 32184676 Completed 200303/16/2013 Not Available [facility] 3 02:01:09 Peripheral venous insufficie ncy 04397213 Active 2003 Not Available [facility] 3 03:12:20 On examinatio n - a rash Completed 200403/16/2013 Not Available [facility] 3 02:00:49 Acute bronchitis 39440652 Completed 200403/16/2013 Not Available [facility] 3 02:01:37 Acute maxillary sinusitis 41015484 Completed 200403/16/2013 Not Available [facility] 3 02:01:43 Hyperlipid emia 99471001 Active 2004 Not Available [facility] 3 03:12:20 Common cold 49420083 Completed 200403/16/2013 Not Available [facility] 3 02:00:29 Seizure 42593973 Active 2004 Not Available [facility] 3 03:12:20 Hypothyroi dism 90186821 Active 2004 Not Available [facility] 3 03:12:20 Pain of joint of hand 964431186 Completed 200403/16/2013 Not Available [facility] 3 02:02:43 Atrial fibrillati on 96735655 Active 2004 Not Available [facility] 3 03:12:20 Thromboemb olic disorder 307725798 Active 2005 Not Available [facility] 3 03:12:20 Major depression , melancholi c type 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 Medical Equipment None [...] formulation 4 completed Not Available [facility] 03/12/2011 05:21:07 influenza, unspecified formulation 4 completed Not Available [facility] 03/12/2011 05:21:07 influenza, unspecified formulation 5 completed Not Available [facility] 03/12/2011 05:21:29 influenza, unspecified formulation 5 completed Not Available [facility] 03/12/2011 05:21:29 Past Encounters Encounter ID Performer Location Encounter Start Date Encounter Closed Date Diagnosis/Indication Diagnosis SNOMED-CT Code Diagnosis ICD10 Code Diagnosis Note [id number] Gricelda Layne MD , [facility] [place] [address] [place] [id number] 11/16/2003 12:14:30 11/22/2003 09:27:14 [id number] Gricelda Layne MD , [facility] [place] [address] [place] [address] [place] [id number] 12/22/2003 09:56:38 12/25/2003 15:40:32 [id number] Gricelda Layne MD , [facility] [place] [address] [place] [id number] 01/19/2004 09:54:48 01/22/2004 08:56:58 [id number] FP TREATMENT NURSE [facility], [facility] [place] OFF[facility] [address] [place] [id number] 1 02/02/2004 09:07:12 02/02/2004 12:21:32 [id number] [facility] [place] [facility] [place] [address] [place] [id number] 02/02/2004 07:26:36 02/02/2004 09:21:04 [id number] FP TREATMENT NURSE [facility] OFFICE [address] [place] [address] [place] [id number] 1 03/07/2004 08:50:31 03/07/2004 17:12:49 [id number] Gricelda Layne MD , [facility] [place] [address] [place] [address] [place] [id number] 04/05/2004 09:48:00 04/09/2004 08:47:39 [id number] FP TREATMENT NURSE [facility] OFFICE [address] [place] [address] [place] [id number] 04/15/2004 15:03:12 04/15/2004 17:36:23 [id number] MD RODGER Raza, [facility] [place] OFFICE [address] [place] [address] [place] [id number] 04/12/2004 10:53:34 05/17/2008 02:02:29 [id number] FP TREATMENT NURSE [facility] [place] OFFICE [address] [place] [address] [place] [id number] 1 04/22/2004 14:57:11 04/23/2004 09:26:19 [id number] Gricelda Layne MD , [facility] [place] [address] [place] [address] [place] [id number] 1 05/03/2004 10:24:03 05/06/2004 08:51:52 [id number] Reid Ya , [facility] [place] [address] [place] [id number] 1 05/20/2004 10:47:03 05/21/2004 08:35:20 [id number] Yarelis MADISON FP, [facility] [place] [address] [place] [id number] 05/24/2004 11:19:37 05/27/2004 09:14:32 [id number] FP TREATMENT NURSE [facility], [facility] [place] [address] [place] [id number] 05/27/2004 09:35:41 05/28/2004 09:13:28 [id number] Gricelda Lanye MD FP, [facility] [place] [address] [place] [id number] 06/04/2004 08:58:14 06/04/2004 17:23:42 [id number] FP TREATMENT NURSE [facility], [facility] [place] [address] [place] [id number] 06/18/2004 10:00:16 06/18/2004 16:52:29 [id number] [facility] [place] [facility] - [facility] [place] [address] [facility] [place] [id number] 1 06/18/2004 07:34:32 06/18/2004 09:59:04 [id number] Gricelda Layne MD FP, [facility] [place] [address] [place] [id number] 1 06/27/2004 11:46:29 06/28/2004 09:09:13 [id number] FP TREATMENT NURSE [facility], [facility] [place] [address] [place] [id number] 08/14/2004 11:47:27 08/15/2004 08:54:14 [id number] Gricelda Layne MD FP, [facility] [place] [address] [place] [id number] 09/19/2004 16:03:15 09/20/2004 16:06:43 [id number] FP TREATMENT NURSE [facility], [facility] [place] [address] [place] [id number] 10/17/2004 08:40:42 10/17/2004 15:32:26 [id number] [facility] [place] [facility] - [facility] [place] [address] [place] [id number] 10/17/2004 07:29:38 10/17/2004 09:02:48 [id number] MD RODGER Raza, [facility] [place] [address] [place] [id number] 10/25/2004 10:49:52 11/01/2004 08:36:26 [id number] FP TREATMENT NURSE [facility] [place], [facility] [place] [address] [place] [id number] 11/19/2004 09:04:39 11/20/2004 08:14:19 [id number] FP TREATMENT NURSE [facility] [place], [facility] [place] [address] [place] [id number] 1 11/26/2004 08:55:17 11/26/2004 16:24:15 [id number] FP TREATMENT NURSE [facility] [place], [facility] [place] [address] [place] [id number] 12/03/2004 09:11:25 12/04/2004 14:38:40 [id number] [facility] [place] MAMMO[facility]APH Y Technologi st Radiology , [facility] [place] [address] [place] [id number] 12/05/2004 10:50:31 12/05/2004 11:29:40 [id number] FP TREATMENT NURSE [facility] [place], [facility] [place] [address] [place] [id number] 12/20/2004 08:19:23 12/20/2004 15:41:51 [id number] [facility] [place] [facility] - [facility] [place] [address] [place] [id number] 12/20/2004 07:34:27 12/20/2004 08:05:52 [id number] FP TREATMENT NURSE [facility] [place], [facility] [place] [address] [place] [id number] 1 12/27/2004 09:49:39 12/27/2004 15:08:31 [id number] MD RODGER Raza, [facility] [place] [address] [place] [id number] 1 12/31/2004 11:01:20 01/02/2005 10:36:32 [id number] FP TREATMENT NURSE [facility] [place], [facility] [place] [address] [place] [id number] 1 01/08/2005 10:14:21 01/08/2005 15:13:20 [id number] FP TREATMENT NURSE [facility] [place], [facility] [place] [address] [place] [id number] 1 01/16/2005 10:11:30 01/16/2005 15:05:45 [id number] FP TREATMENT NURSE [facility] [place], [facility] [place] [address] [place] [id number] 01/30/2005 10:31:42 01/30/2005 14:44:48 [id number] [facility] [place] [place] [facility] FP, [facility] [place] [address] [place] [id number] 1 02/18/2005 15:03:31 02/18/2005 17:29:51 [id number] FP TREATMENT NURSE [facility] [place], [facility] [place] [address] [place] [id number] 1 03/05/2005 14:53:36 03/05/2005 17:29:44 [id number] Gricelda Layne MD FP, [facility] [place] [address] [place] [id number] 1 03/06/2005 11:53:52 03/06/2005 15:47:59 [id number] [facility] [place] [facility] - [facility] [place] [address] [place] [id number] 03/05/2005 15:26:52 03/05/2005 15:27:17 [id number] Gricelda Layne MD FP, [facility] [place] [address] [place] [id number] 1 03/18/2005 16:33:44 03/19/2005 08:28:27 [id number] FP TREATMENT NURSE [facility] [place], [facility] [place] [address] [place] [id number] 1 03/26/2005 14:01:26 03/26/2005 16:56:44 [id number] FP TREATMENT NURSE [facility] [place], [facility] [place] [address] [place] [id number] 1 04/25/2005 15:06:42 04/29/2005 10:24:01 [id number] FP TREATMENT NURSE [facility] [place], [facility] [place] [address] [place] [id number] 1 04/02/2005 13:33:35 04/02/2005 14:27:19 [id number] [facility] [place] [place] [facility] - [facility] [place] [address] [place] [id number] 05/15/2005 13:10:28 05/15/2005 13:11:25 [id number] [facility] [place] [place] [facility] - [facility] [place] [address] [place] [id number] 1 06/02/2005 08:59:09 06/02/2005 09:00:10 [id number] Gricelda Layne MD FP, [facility] [place] [address] [place] [id number] 1 06/09/2005 09:48:13 06/09/2005 17:49:27 [id number] [facility] [place] [facility] - [facility] [place] [address] [place] [id number] 06/30/2005 07:39:14 06/30/2005 10:47:09 [id number] [facility] [place] [place] [facility] - [facility] [place] [address] [place] [id number] 07/15/2005 07:35:21 07/15/2005 10:38:06 [id number] [facility] [place] [place] [facility] - [facility] [place] [address] [place] [id number] 08/05/2005 07:38:24 08/05/2005 10:34:53 [id number] FP TREATMENT NURSE [facility] [place], [facility] [place] [address] [place] [id number] 1 08/08/2005 11:53:47 08/08/2005 14:52:47 [id number] FP TREATMENT NURSE [facility] [place], [facility] [place] [address] [place] [id number] 1 08/11/2005 10:19:48 08/11/2005 15:05:14 [id number] FP TREATMENT NURSE [facility] [place], [facility] [place] [address] [place] [id number] 1 08/18/2005 10:57:06 08/18/2005 15:15:34 [id number] FP TREATMENT NURSE [facility] [place], [facility] [place] [address] [place] [id number] 1 08/25/2005 11:48:03 08/25/2005 17:40:40 [id number] FP TREATMENT NURSE [facility] [place], [facility] [place] [place] [address] [place] [id number] 1 09/17/2005 11:31:19 09/17/2005 15:17:53 [id number] Gricelda Layne MD FP, [facility] [place] [place] [address] [place] [id number] 1 10/09/2005 16:05:18 10/10/2005 16:24:20 [id number] FP TREATMENT NURSE [facility] [place], [facility] [place] [address] [place] [id number] 1 10/20/2005 09:54:51 10/20/2005 17:30:28 [id number] FP TREATMENT NURSE [facility] [place], [facility] [place] [place] [address] [place] [id number] 1 11/17/2005 10:54:13 11/17/2005 17:50:24 [id number] [facility] [place] [place] [facility] - [facility] [place] [address] [place] [id number] 1 11/28/2005 07:30:03 11/28/2005 08:43:26 [id number] FP TREATMENT NURSE [facility], [facility] [place] [address] [place] [id number] 1 12/01/2005 10:50:57 05/17/2008 02:02:29 [id number] [facility] [place] [facility] - [address] [place] [id number] 12/01/2005 11:06:46 12/01/2005 11:07:08 [id number] FP TREATMENT NURSE [facility], [facility] [place] [address] [place] [id number] 1 12/02/2005 09:40:49 12/02/2005 12:24:54 [id number] MD RODGER Raza, [facility] [place] [address] [place] [id number] 1 12/05/2005 10:52:16 12/08/2005 09:32:36 [id number] FP TREATMENT NURSE [facility], [facility] [place] [address] [place] [id number] 1 12/10/2005 14:20:32 12/10/2005 17:21:31 [id number] FP TREATMENT NURSE [facility], [facility] [place] [address] [place] [id number] 1 12/12/2005 10:12:02 12/12/2005 13:55:19 [id number] [facility] [place] [facility] - [address] [place] [id number] 12/15/2005 07:56:58 12/15/2005 10:52:40 [id number] [facility] [place] [place] [facility] - [address] [place] [id number] 12/19/2005 09:58:38 12/19/2005 09:58:49 Health Concerns Section Related Observation LastModified by Organization Detai ls LastModified Time None Recorded Concern Status LastModified by Organization Details LastModified Time None Recorded Advance Directives Directive None Recorded Payers Insurance Date Sequence Insurance Name Policy Number Policy Arce Covered Member ID Arce Member ID Guarantor Name 03/09/2006 1 [employer] - MEDICARE-[address] BOARD (MEDICARE) Mary Jane Carpenter [id number] 03/09/2006 [address] [facility] SUPP[facility]) Mary Jane Carpenter [id number] 11/16/2003 1 *SELF PAY* 03/09/2006 1 [facility] [id number] Mary Jane Falcongregor [id number] OBGyn Episode No OBEpisode recorded.
--- OUTSIDE RECORDS SUMMARY | 2024-11-11 12:28 | XMS_ITS | Clinical Summary ---
Author Organization 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
--- NOTE | 2024-11-11 12:52 | MHC.PC.OV ---
Vital Signs 11/11/24 12:53 Height 5 ft 1 in Weight 227 lb 6 oz BMI 43.0 BP 140/72 H Blood Pressure Location Lt brachial Position Sitting Pulse 77 Pulse Source Pulse Oximeter Temp 97.1 F Temp Source Temporal Artery Scan Pulse Oximetry (%) 99 Oxygen Delivery Method Room Air Intake Visit Reasons: [facility] 10/29/24, ok per Macarena Intake Note: Patient is here to follow-up after a visit the emergency department at [facility] on 10/29/24 Carpenter Rough Required: No Painter Sign Maintenance: Not Required per policy Accompanied by: Self / Same As Patient Allergies shrimp (SHRIMP) Allergy (Mild, Verified 11/11/24 13:20) HIVES diltiazem Adverse Reaction (Severe, Uncoded 11/11/24 13:20) feet pain, swelling Medication List - Last Reconciled 11/11/24 by Luis Blair MD ammonium lactate 12% 1 appl topical BID atorvastatin 40 mg PO DAILY betamethasone dipropionate 0.05% appl topical DAILY blood sugar diagnostic (Accu-Chek Guide test strips) As directed 2 times per day blood-glucose meter TEST 2 TIMES DAILY blood-glucose meter (Accu-Chek Guide Glucose Meter) As directed cholecalciferol (vitamin D3) 1,000 units PO DAILY cyanocobalamin (vitamin B-12) 1,000 mcg PO DAILY esomeprazole magnesium (Nexium) 20 mg PO DAILY furosemide 40 mg PO BID glipizide 5 mg PO DAILY hydrocortisone 1% (Anti-Itch (hydrocortisone)) 1 appl topical BID PRN 2 weeks lancing device ACCU-CHECK DARLINE DEVICE lancing device (Adjustable Lancing Device) As directed lisinopril 40 mg PO DAILY 90 days phenytoin sodium extended 200 mg PO BID tizanidine 4 mg PO Q8H PRN vitamins A,C,M-myok-fxnmwp (PreserVision AREDS) PO BID warfarin 5 mg See Protocol PO DAILY Tobacco use date assessed: 11/11/24 Fall risk assessment: No Falls in past year Last assessed Fall Risk: 11/11/24 Dental Screening Dental Screen Date: 07/18/24 HPI [facility] 10/29/24, ok per Macarena HPI Details Patient comes in today for her HDF follow up visit She went to the ER a couple of weeks ago for sudden onset of sharp right thigh pain Recalls that the pain came on suddenly when she sat down after she was walking for a while and she became concerned that she could have a blood clot in her leg at the time because of her Factor V Leiden deficiency, prompting her to go to the ER for further evaluation Work ups done in the ER, including a venous doppler of her extremity, all came out negative Patient also relates that while she was being transferred to a stretcher in the ER, she stood up and the pain in her right thigh cleared up on its own immediately and has not recurred since She is currently still on Coumadin for her Factor V Leiden deficiency and is wondering if there are any better alternatives to Coumadin for her condition She recalls being seen by Dr. Lerner several years ago and she was the one who diagnosed her Factor V deficiency but she has not seen hematology for follow up in years now States that she currently feels okay She denies any headaches or dizziness Denies any chest pains, no SOB No nausea/vomiting, no abdominal pain No change in bowel habits noted Patient adds that she needs Rx sent in for a new glucometer device, lancets and test strips as her old unit broke down recently [facility] Medical History (Updated 11/11/24 @ 17:43 by Luis Blair MD) Morbid obesity with BMI of 40.0-44.9, adult Epilepsy GERD without esophagitis Vitamin D deficiency Mixed hyperlipidemia Essential hypertension Diabetes mellitus PAF (paroxysmal atrial fibrillation) Atrial fibrillation Factor V Leiden DVT (deep venous thrombosis) Hyperlipidemia Hypertension Diabetes mellitus with coincident hypertension Surgical History History of lumpectomy of right breast History of appendectomy History of cholecystectomy Family History Father Asthma Mother Diabetes Hypertension Colon cancer Other Substance use disorder Social History Household Members: None Housing: Apartment Do you presently have visiting nurse or other home services: No Alcohol intake: never Patient Tobacco Use Status: Never used Tobacco Tobacco use type: Cigarette e-Cigarette/Vaping Use: Never Used Second Hand Smoke Exposure: No Advance Directives Date on File: 02/03/23 service: No Current occupational status: employed Cognitive needs: No Hearing needs: No Vision needs: No Questionnaire PHQ-9 Over the last 2 weeks, how often have you been bothered by any of the following problems? 1. Little interest or pleasure in doing things: not at all 2. Feeling down, depressed, or hopeless: not at all 3. Trouble falling or staying asleep, or sleeping too much: not at all 4. Feeling tired or having little energy: not at all 5. Poor appetite or overeating: not at all 6. Feeling bad about yourself - or that you are a failure or have let yourself or your family down: not at all 7. Trouble concentrating on things, such as reading the newspaper or watching television: not at all 8. Moving or speaking so slowly that other people could have noticed. Or the opposite - being so fidgety or restless that you have been moving around a lot more than usual: not at all 9. Thoughts that you would be better off or of hurting yourself in some way: not at all Total score: 0 Depression Screening Interpretation: Negative Depression Screening Done: Yes 15737 - PHQ-9 Billing: Yes Source: Developed by Drs. Tee Esqueda, Cami Betts, Zac Arellano and colleagues, with an educational naz from [employer]. Thrive Questionnaire Date Thrive assessed: 11/11/24 I am a: Patient What is your living situation today?: I have a steady place to live Within the past 12 months, did the food you bought not last and you didn't have the money to get more?: Never true Within the past 12 months, did you worry whether your food would run out before you got money to buy more?: Never true Do you have trouble paying for medicines?: No Do you have trouble getting transportation to medical appointments?: No Do you have trouble paying your heating and electricity bill?: No Do you have trouble taking care of your child, family member or friend?: No Do you have trouble with day-to-day activities such as bathing, preparing meals, shopping, managing finances, etc.?: No Are you currently unemployed and looking for a job?: No Are you interested in more education?: No Please select the resources that you would like help with: None Currently or been in a relationship where the following occur: No concerns reported THRIVE Score: 0 AUDIT C Alcohol Use Questionnaire (AUDIT-C) 1. How often do you have a drink containing alcohol?: Never Total Score: 0 Score Reviewed/Action Taken: No JOEL-7 AMB Questionnaire JOEL-7 Date JOEL - 7 assessed: 07/18/24 Source: Developed by Drs. Tee Esqueda, Cami Betts, Zac Arellano and colleagues, with an educational naz from [employer]. Review of Systems Const Denies chills, Denies fatigue, Denies fever(s) and Denies headache(s) ENT Denies dysphagia, Denies dizziness, Denies otalgia, Denies headache(s), Denies neck pain, Denies odynophagia and Denies sore throat Card Denies chest pain, Denies palpitations and Denies dyspnea Resp Denies chest congestion, Denies cough and Denies dyspnea GI Denies abdominal pain, Denies constipation, Denies dysphagia, Denies heartburn, Denies diarrhea, Denies nausea, Denies odynophagia and Denies vomiting Denies difficulty voiding, Denies nocturia and Denies dysuria Musc Denies back pain and Denies neck pain Skin/Breast Denies rash Neuro Denies dizziness and Denies headache(s) Endo Denies fatigue and Denies palpitations Physical exam (Primary Care) Vital Signs: Last Vital Signs Temp 97.1 F 11/11/24 12:53 Pulse 77 11/11/24 12:53 BP 140/72 H 11/11/24 12:53 Pulse Ox 99 11/11/24 12:53 Oxygen Delivery Method Room Air 11/11/24 12:53 BMI result Body Mass Index 43.0 Tobacco/Smoking Status: Tobacco use Status Tobacco use date assessed 11/11/24 11/11/24 13:00 Patient Tobacco Use Status Never used Tobacco 11/11/24 13:00 Tobacco use type Cigarette 11/11/24 13:00 e-Cigarette/Vaping Use Never Used 11/11/24 13:00 Depression Screening Interpretation: Negative Thrive Assessment: Date of Thrive Assessment Date Thrive assessed 07/18/24 11/11/24 13:00 Currently or been in a relationship where the following occur: No concerns reported Const General: no acute distress and alert HENMT Throat: Yes posterior oropharynx normal and Yes tonsils normal (no TP congestion) Neck Neck: Yes supple and No lymphadenopathy Thyroid: Thyroid normal Resp Auscultation: clear to auscultation bilaterally, no rales and no wheezes Cardio Rate: regular rate Rhythm: regular rhythm Heart sounds: no murmurs GI Palpation (GI): Soft to palpation and nontender Auscultation: normal bowel sounds General: Yes no CVA tenderness Back/Spine/Pelvis Back: no CVA tenderness Thoracic/Lumbar Spine: No lumbar spinal tenderness Skin Rashes: no rashes Extrem General: Yes no clubbing, cyanosis or edema Results AMB Hemoglobin A1c AMB Hemoglobin A1c 5.9 % Last Edit by GILMA Garrison on 11/11/24 13:14 Results Reviewed Results Reviewed: Laboratory Last Values Hgb A1c (Clinic) 5.9 % (4.0-6.0) 11/11/24 12:51 Laboratory Tests 10/29/24 19:03 WBC 5.8 Hgb 12.9 Hct 38.0 Plt Count 160 Sodium 143 Potassium 4.4 Creatinine 0.78 Estimated GFR > 60 Random Glucose 124 H Calcium 8.7 Coding Level of Care Code Est Pt Level 4 (98798) Diagnoses Right thigh pain M79.651 Factor V deficiency D68.2 Type 2 diabetes mellitus without complication, without long-term current use of insulin E11.9 Diabetes mellitus type: type 2 Diabetes mellitus 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 insulin use: without 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 use Diabetes mellitus complication status: without complication Essential hypertension I10 Mixed hyperlipidemia E78.2 PAF (paroxysmal atrial fibrillation) I48.0 Vitamin D deficiency E55.9 GERD without esophagitis K21.9 Nonintractable epilepsy without status epilepticus, unspecified epilepsy type G40.909 Epilepsy type: unspecified Intractability: not intractable Status epilepticus: without status epilepticus Morbid obesity with BMI of 40.0-44.9, adult E66.01; Z68.41 Additional Codes PHQ-9 - 22680 - PHQ-9 Billing: Yes ([id number]) Assessment & Plan Assessment & Plan (1) Right thigh pain: Code(s): M79.651 - Pain in right thigh Category: Medical Plan: Discussed with patient that her brief bout of sharp right thigh pain a couple of weeks ago was likely some musculoskeletal pain, based on her presentation and the brief duration of her symptoms at the time She had work ups done, including a venous doppler, that came back negative - she was reassured at the ER that she did not have a blood clot at the time Patient also recalls that it was mentioned to her that she can consider switching to Lovenox instead of her Coumadin for her Factor V deficiency (?) Have advised her to continue on daily Coumadin for now (2) 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 of other clotting factors Category: Medical Plan: Continue Coumadin 5 mg QD Will try referring her back to Dr. Lerner for follow up - have advised patient that unless Dr. Lerner tells her to come off Coumadin and switch to something else, she should stay on her Coumadin daily (3) Diabetes mellitus: Code(s): E11.9 - Type 2 diabetes mellitus without complications Category: Medical Qualifiers: Diabetes mellitus type: type 2 Diabetes mellitus snf insulin use: without snf use Diabetes mellitus complication status: without complication Qualified Code(s): E11.9 - Type 2 diabetes mellitus without complications Plan: Her in-office HgbA1c today is at 5.9% Reinforced diabetic diet Continue Glipizide 5 mg QD Per request, will send in Rx refills for her glucometer, test strips and lancets (4) Essential hypertension: Code(s): I10 - Essential (primary) hypertension Category: Medical Plan: Reinforced low sodium diet - goal is systolic BP of at least 130 to 140 mm or less Continue Lisinopril 40 mg QD and Furosemide 40 mg BID Patient is advised to continue monitoring her blood pressure regularly (5) Mixed hyperlipidemia: Code(s): E78.2 - Mixed hyperlipidemia Category: Medical Plan: Reinforced low cholesterol diet - her total cholesterol was at 183 mg/dl and LDL cholesterol at 108 mg/dl when they were last checked on 07/18/2024 Continue Atorvastatin 40 mg QD Will have her recheck her labs and fasting lipids just before she returns for her next appointment in a couple of months for follow up (6) PAF (paroxysmal atrial fibrillation): Code(s): I48.0 - Paroxysmal atrial fibrillation Category: Medical Plan: Patient is currently in sinus rhythm Her most recent echocardiogram done on 01/28/2023 showed EF of 55-60%, moderate septal asymmetric hypertrophy 7 days Holter monitor done on 03/13/2023 showed sinus rhythm with average heart rate of 72 She was previously on Diltiazem 120 mg daily but does not appear to be taking it any longer at this time - she is unable to explain why She has a ChADS-VASc score of 4 and requires anticoagulation - she is already on Coumadin for management of her Factor V Leiden deficiency (7) Vitamin D deficiency: Code(s): E55.9 - Vitamin D deficiency, unspecified Category: Medical Plan: Continue Vitamin D3 1000 units QD (8) GERD without esophagitis: Code(s): K21.9 - Gastro-esophageal reflux disease without esophagitis Category: Medical Plan: Dietary restrictions reinforced Continue Esomeprazole 20 mg QD (9) Epilepsy: Code(s): G40.909 - Epilepsy, unspecified, not intractable, without status epilepticus Category: Medical Qualifiers: Epilepsy type: unspecified Intractability: not intractable Status epilepticus: without status epilepticus Qualified Code(s): G40.909 - Epilepsy, unspecified, not intractable, without status epilepticus Plan: Continue Phenytoin ER 200 mg BID Follow up with neurology as scheduled (10) Morbid obesity with BMI of 40.0-44.9, adult: Code(s): E66.01 - Morbid (severe) obesity due to excess calories; Z68.41 - Body mass index [BMI] 40.0-44.9, adult Category: Medical Plan: Reinforced diet/exercise as tolerated/lose weight Plan Follow up with Dr. Patton as scheduled in December 2024 Orders: Orders AMB Hemoglobin A1c Today E11.9 - Type 2 diabetes mellitus without complications, I10 - Essential (primary) hypertension Referrals Hematology & Oncology Referral D68.2 - Hereditary deficiency of other clotting factors Medications: Refilled blood sugar diagnostic (Accu-Chek Guide test strips) As directed 2 times per day 100 ea 6RF E11.9 - Type 2 diabetes mellitus without complications, I10 - Essential (primary) hypertension blood-glucose meter (Accu-Chek Guide Glucose Meter) As directed 1 ea 0RF lancing device (Adjustable Lancing Device) As directed 1 ea 0RF
[2024-11-11 12:53] VITALS: BP 140/72; PULSE 77; TEMP 36.2; O2SAT 99; BMI 43.0
== END 2024-11-11 14:55 | disposition home or self-care (01) ==
LOC: HO.HMCH 12:27
PROVIDERS: Visit Provider Internal Medicine
DX: E11.9 Type 2 diabetes mellitus without complications (principal); D68.2 Hereditary deficiency of other clotting factors; I48.0 Paroxysmal atrial fibrillation; G40.909 Epilepsy, unspecified, not intractable, without status epilepticus; E66.01 Morbid (severe) obesity due to excess calories; Z68.41 Body mass index [BMI] 40.0-44.9, adult; M79.651 Pain in right thigh; I10 Essential (primary) hypertension; E78.2 Mixed hyperlipidemia; E55.9 Vitamin D deficiency, unspecified; K21.9 Gastro-esophageal reflux disease without esophagitis

== ENCOUNTER → 2024-11-11 12:27 | Outpatient (BNVA) | payer OTHER, MEDICAID, SELFPAY | PROVIDERS: Visit Provider Internal Medicine | DX: M79.651 Pain in right thigh (principal); D68.2 Hereditary deficiency of other clotting factors; E11.9 Type 2 diabetes mellitus without complications; I10 Essential (primary) hypertension; E78.2 Mixed hyperlipidemia; I48.0 Paroxysmal atrial fibrillation; E55.9 Vitamin D deficiency, unspecified; K21.9 Gastro-esophageal reflux disease without esophagitis; G40.909 Epilepsy, unspecified, not intractable, without status epilepticus; E66.01 Morbid (severe) obesity due to excess calories; Z68.41 Body mass index [BMI] 40.0-44.9, adult; Z79.01 Long term (current) use of anticoagulants; Z79.84 Long term (current) use of oral hypoglycemic drugs; Z79.899 Other long term (current) drug therapy; Z13.31 Encounter for screening for depression | CPT/HCPCS: 83036; 96127 ==

== ENCOUNTER 2024-11-14 13:02 | Outpatient (AMB) | payer OTHER, MEDICAID, SELFPAY ==
[2024-11-14 13:14] LABS: Prothrombin Time Whole Bld POC 38.4 sec (11.1-13.5); ~PT, ~INR - Anti Coag Clinic 3.2 (0.9-1.1)
--- NOTE | 2024-11-14 13:26 | MHC.OFFVISCO ---
Intake Intake Visit Reasons: Anticoagulation Allergies shrimp (SHRIMP) Allergy (Mild, Verified 11/14/24 13:03) HIVES diltiazem Adverse Reaction (Severe, Uncoded 11/14/24 13:03) feet pain, swelling Medication List - Last Reconciled 11/14/24 by Clover Granados, RN ammonium lactate 12% 1 appl topical BID atorvastatin 40 mg PO DAILY betamethasone dipropionate 0.05% appl topical DAILY blood sugar diagnostic (Accu-Chek Guide test strips) As directed 2 times per day blood-glucose meter TEST 2 TIMES DAILY blood-glucose meter (Accu-Chek Guide Glucose Meter) As directed cholecalciferol (vitamin D3) 1,000 units PO DAILY cyanocobalamin (vitamin B-12) 1,000 mcg PO DAILY esomeprazole magnesium (Nexium) 20 mg PO DAILY furosemide 40 mg PO BID glipizide 5 mg PO DAILY hydrocortisone 1% (Anti-Itch (hydrocortisone)) 1 appl topical BID PRN 2 weeks lancing device ACCU-CHECK DARLINE DEVICE lancing device (Adjustable Lancing Device) As directed lisinopril 40 mg PO DAILY 90 days phenytoin sodium extended 200 mg PO BID tizanidine 4 mg PO Q8H PRN vitamins A,C,Q-rymp-wzwiva (PreserVision AREDS) PO BID warfarin 5 mg See Protocol PO DAILY Nursing Note INR: 3.2?out of therapeutic range of 2-3 Medications and supplements reviewed Patient status: well Medications or supplements: no changes Diet: usual diet for pt Denies any signs and symptoms of bleeding or clotting or unusual bruising Bleeding, bruising, clotting discussed Nutritional guidance given: to have a serving of greens today Dose: pt states she has been taking 5mg daily. ACS had pt taking one day of 2.5mg and 6 days of 5mg. She states she is so afraid of recurring blood clots. She was in the ER a couple of weeks ago for R/O DVT which was negative. Will continue pt on 5mg daily and will retest in 1 week. F/U INR Date: 11/22/24?? Patient verbalizing understanding of instructions given. Anti-Coag Initial Assessment Social Hx Patient Tobacco Use Status: Never used Tobacco Tobacco use type: Cigarette alcohol intake: never Alcohol intake frequency: holidays/special occasions only Coding Level of Care Code Est Patient Level 1 Diagnoses Current use of anticoagulant therapy Z79.01 Assessment & Plan Assessment & Plan (1) Current use of anticoagulant therapy: Code(s): Z79.01 - care home (current) use of 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
--- OUTSIDE RECORDS SUMMARY | 2024-11-14 13:46 | XMS_ITS | Clinical Summary ---
Author Organization [facility] Address [address] [place] [address] Phone Care Team Providers Care Delivery Man Name Role Phone Unavailable Primary Care Provider [...] - 2023-2 5 season) 2023 Depression Screening 04/27/2024 Falls Risk Assessment 05/26/2024 Hepatitis C Screening [...]
--- OUTSIDE RECORDS SUMMARY | 2024-11-14 13:46 | XMS_ITS | Data Portability ---
Author Organization [place] [facility], , [facility] Address [address] [place] [address] Assessment No assessment recorded. Plan of Treatment [...] ) ALT 42 U/L 30-65 Not Available [address], [address], 06/26/2008 02:36:06 11/29/1911/28/2005 hemog lobin A1C w/ mpg hemoglobin A1C 5.6 % 4.8-6. 0 goal: <7% in patie nts with diabe ernestine Not Available [address], [address], 06/26/2008 02:36:06 11/29/1911/28/2005 lipid panel cholesterol 245 mg/dL <200 mg/dL naz eable 200-2 39 mg/dL borde rline high >240 mg/dL high Not Available [address], [address], 06/26/2008 02:36:06 11/29/1911/28/2005 lipid panel triglyceride s 216 mg/dL <150 mg/dL helene l 150-1 99 mg/dL borde rline high 200-4 99 mg/dL high >500 mg/dL very high Not Available [address], [address], 06/26/2008 02:36:06 11/29/1911/28/2005 lipid panel direct HDL 62 mg/dL <40 mg/dL - major risk for CHD >60 mg/dL - negat danyell risk for CHD Not Available [address], [address], 06/26/2008 02:36:06 11/29/1911/28/2005 lipid panel direct LDL 141 mg/dL risk categ ory LDL goal _ CHD or CHD risk equiv alent s <100 mg/dL (10-y ear risk >20%) 2+ risk facto rs <130 mg/dL (10-y ear risk <= 20%) 0-1 risk facto r <160 mg/dL [facility] all peopl e with 0-1 risk facto r have A 10 year risk <10%, thus 10 year risk asses ment in peopl e with 0-1 risk facto r IS not kike faby. Not Available [address], [address], 06/26/2008 02:36:06 12/02/19 06 12/01/2005 protmei jha n time PT 41.1 secon ds 9.0-10 .4 high Not Available [address], [address], 06/26/2008 03:22:12 12/02/19 06 12/01/2005 proth rombi n time INR 4.1 0.9-1. 1 high sugge sted value of 2.0-3 .0 for proph ylaxi s of venou s thomb osis, and preve ntion of embol ism. sugge sted value of 2.5-3 .5 for preve ntion of recur rent embol ism or patie nts with mecha nical prost hetic heart valve s. Not Available [address], [address], 06/26/2008 03:22:12 12/16/19 06 12/15/2005 proth rombi n time PT 23.6 secon ds 9.0-10 .4 high Not Available [address], [address], 06/26/2008 03:41:29 12/16/19 06 12/15/2005 proth rombi n time INR 2.4 0.9-1. 1 high sugge sted value of 2.0-3 .0 for proph ylaxi s of venou s thomb osis, and preve ntion of embol ism. sugge sted value of 2.5-3 .5 for preve ntion of recur rent embol ism or patie nts with mecha nical prost hetic heart valve s. Not Available [address], [address], 06/26/2008 03:41:29 12/20/19 06 12/19/2005 proth rombi n time PT 23.3 secon ds 9.0-10 .4 high Not Available [address], [address], 06/26/2008 03:27:20 12/20/19 06 12/19/2005 proth rombi n time INR 2.4 0.9-1. 1 high sugge sted value of 2.0-3 .0 for proph ylaxi s of venou s thomb osis, and preve ntion of embol ism. sugge sted value of 2.5-3 .5 for preve ntion of recur rent embol ism or patie nts with mecha nical prost hetic heart valve s. Not Available [address], [address], 06/26/2008 03:27:20 Result Notes None recorded. 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 Active 2003 Not Available [facility] 3 03:12:20 Edema of extremity 388806308 Completed 200303/16/2013 Not Available [facility] 3 02:02:55 Type 2 diabetes mellitus without complicati on 134374966 Active 2003 Not Available [facility] 3 03:12:20 Essential hypertensi on 01637378 Active 2003 Not Available [facility] 3 03:12:20 Abnormal weight gain 477486201 Active 2003 Not Available [facility] 3 03:12:20 Generalize d abdominal pain 531691330 Completed 200303/16/2013 Not Available [facility] 3 02:02:06 Streptococ samm sore throat 30708290 Completed 200303/16/2013 Not Available [facility] 3 02:02:03 Cough 21952069 Completed 200303/16/2013 Not Available [facility] 3 02:01:09 Peripheral venous insufficie ncy 58443503 Active 2003 Not Available [facility] 3 03:12:20 On examinatio n - a rash Completed 200403/16/2013 Not Available [facility] 3 02:00:49 Acute bronchitis 91217556 Completed 200403/16/2013 Not Available [facility] 3 02:01:37 Acute maxillary sinusitis 65160725 Completed 200403/16/2013 Not Available [facility] 3 02:01:43 Hyperlipid emia 81632737 Active 2004 Not Available [facility] 3 03:12:20 Common cold 05230835 Completed 200403/16/2013 Not Available [facility] 3 02:00:29 Seizure 96648496 Active 2004 Not Available [facility] 3 03:12:20 Hypothyroi dism 84857386 Active 2004 Not Available [facility] 3 03:12:20 Pain of joint of hand 716209362 Completed 200403/16/2013 Not Available [facility] 3 02:02:43 Atrial fibrillati on 25035640 Active 2004 Not Available [facility] 3 03:12:20 Thromboemb olic disorder 437094058 Active 2005 Not Available [facility] 3 03:12:20 Major depression , melancholi c type 629362610 Active 2005 Not Available [facility] 3 03:12:20 Problem Notes None recorded. Medical [...] formulation 4 completed Not Available [facility] 03/12/2011 05:21:07 influenza, unspecified formulation 4 completed Not Available [facility] 03/12/2011 05:21:07 influenza, unspecified formulation 5 completed Not Available [facility] 03/12/2011 05:21:29 influenza, unspecified formulation 5 completed Not Available [facility] 03/12/2011 05:21:29 Past Encounters Encounter ID Performer Location Encounter Start Date Encounter Closed Date Diagnosis/Indication Diagnosis SNOMED-CT Code Diagnosis ICD10 Code Diagnosis Note [id number] Gricelda Layne MD , [facility], [place]ICE [address] [place] [address] 11/16/2003 12:14:30 11/22/2003 09:27:14 [id number] Gricelda Layne MD , [facility], OFFICE [address] [place] [address] [place] [address] 1 12/22/2003 09:56:38 12/25/2003 15:40:32 [id number] Gricelda Layne MD , [facility], OFFICE [address] [place] [address] 1 01/19/2004 09:54:48 01/22/2004 08:56:58 [id number] FP TREATMENT NURSE [facility], [facility] OFFICE [address] [place] [address] 1 02/02/2004 09:07:12 02/02/2004 12:21:32 [id number] [facility] - [address] [place] [address] 02/02/2004 07:26:36 02/02/2004 09:21:04 [id number] FP TREATMENT NURSE [facility] OFFICE [address] [place] [address] [place] [address] 1 03/07/2004 08:50:31 03/07/2004 17:12:49 [id number] Gricelda Layne MD , [facility], OFFICE [address] [place] [address] [place] [address] 04/05/2004 09:48:00 04/09/2004 08:47:39 [id number] FP TREATMENT NURSE [facility] OFFICE [address] [place] [address] [place] [address] 1 04/15/2004 15:03:12 04/15/2004 17:36:23 [id number] MD RODGER Raza, [facility] OFFICE [address] [place] [address] [place] [address] 1 04/12/2004 10:53:34 05/17/2008 02:02:29 [id number] FP TREATMENT NURSE [facility], [facility] OFFICE [address] [place] [address] [place] [address] 1 04/22/2004 14:57:11 04/23/2004 09:26:19 [id number] Gricelda Layne MD , [facility], OFFICE [address] [place] [address] [place] [address] 1 05/03/2004 10:24:03 05/06/2004 08:51:52 [id number] Reid Ya , [facility], OFFICE [address] [place] [address] 1 05/20/2004 10:47:03 05/21/2004 08:35:20 [id number] Yarelis MADISON FP, [facility], OFFICE [address] [place] [address] 1 05/24/2004 11:19:37 05/27/2004 09:14:32 [id number] FP TREATMENT NURSE [facility], [facility], OFFICE [address] [place] [address] 1 05/27/2004 09:35:41 05/28/2004 09:13:28 [id number] Gricelda Layne MD FP, [facility], OFFICE [address] [place] [address] 1 06/04/2004 08:58:14 06/04/2004 17:23:42 [id number] FP TREATMENT NURSE [facility], [facility], OFFICE [address] [place] [address] 1 06/18/2004 10:00:16 06/18/2004 16:52:29 [id number] [facility] - [facility] [address] [facility] [place] [address] 1 06/18/2004 07:34:32 06/18/2004 09:59:04 [id number] Gricelda Layne MD FP, [facility], OFFICE [address] [place] [address] 1 06/27/2004 11:46:29 06/28/2004 09:09:13 [id number] FP TREATMENT NURSE [facility], [facility], OFFICE [address] [place] [address] 1 08/14/2004 11:47:27 08/15/2004 08:54:14 [id number] Gricelda Layne MD FP, [facility], OFFICE [address] [place] [address] 1 09/19/2004 16:03:15 09/20/2004 16:06:43 [id number] FP TREATMENT NURSE [facility], [facility], OFFICE [address] [place] [address] 1 10/17/2004 08:40:42 10/17/2004 15:32:26 [id number] [facility] - [facility] [address] [place] [address] 10/17/2004 07:29:38 10/17/2004 09:02:48 [id number] MD RODGER Raza, [facility], OFFICE [address] [place] [address] 1 10/25/2004 10:49:52 11/01/2004 08:36:26 [id number] FP TREATMENT NURSE [facility] FP, [facility], OFFICE [address] [place] [address] 1 11/19/2004 09:04:39 11/20/2004 08:14:19 [id number] FP TREATMENT NURSE [facility] FP, [facility], OFFICE [address] [place] [address] 1 11/26/2004 08:55:17 11/26/2004 16:24:15 [id number] FP TREATMENT NURSE [facility] FP, [facility], OFFICE [address] [place] [address] 1 12/03/2004 09:11:25 12/04/2004 14:38:40 [id number] [facility] [facility] [employer] Radiology , [facility] [address] [place] [address] 12/05/2004 10:50:31 12/05/2004 11:29:40 [id number] FP TREATMENT NURSE [facility] FP, [facility], OFFICE [address] [place] [address] 1 12/20/2004 08:19:23 12/20/2004 15:41:51 [id number] [facility] - [facility] [address] [place] [address] 12/20/2004 07:34:27 12/20/2004 08:05:52 [id number] FP TREATMENT NURSE [facility] FP, [facility], OFFICE [address] [place] [address] 1 12/27/2004 09:49:39 12/27/2004 15:08:31 [id number] MD RODGER Raza, [facility], OFFICE [address] [place] [address] 1 12/31/2004 11:01:20 01/02/2005 10:36:32 [id number] FP TREATMENT NURSE [facility] FP, [facility], OFFICE [address] [place] [address] 01/08/2005 10:14:21 01/08/2005 15:13:20 [id number] FP TREATMENT NURSE [facility] FP, [facility], OFFICE [address] [place] [address] 1 01/16/2005 10:11:30 01/16/2005 15:05:45 [id number] FP TREATMENT NURSE [facility] FP, [facility], OFFICE [address] [place] [address] 1 01/30/2005 10:31:42 01/30/2005 14:44:48 [id number] [facility] FLU [facility] FP, [facility], OFFICE [address] [place] [address] 1 02/18/2005 15:03:31 02/18/2005 17:29:51 [id number] FP TREATMENT NURSE [facility] FP, [facility], OFFICE [address] [place] [address] 1 03/05/2005 14:53:36 03/05/2005 17:29:44 [id number] Gricelda Layne MD FP, [facility], OFFICE [address] [place] [address] 1 03/06/2005 11:53:52 03/06/2005 15:47:59 [id number] [facility] - [facility] [address] [place] [address] 1 03/05/2005 15:26:52 03/05/2005 15:27:17 [id number] Gricelda Layne MD FP, [facility], OFFICE [address] [place] [address] 1 03/18/2005 16:33:44 03/19/2005 08:28:27 [id number] FP TREATMENT NURSE [facility] FP, [facility], OFFICE [address] [place] [address] 1 03/26/2005 14:01:26 03/26/2005 16:56:44 [id number] FP TREATMENT NURSE [facility] FP, [facility], OFFICE [address] [place] [address] 1 04/25/2005 15:06:42 04/29/2005 10:24:01 [id number] FP TREATMENT NURSE [facility] FP, [facility], OFFICE [address] [place] [address] 1 04/02/2005 13:33:35 04/02/2005 14:27:19 [id number] [facility] - [facility] [address] [place] [address] 05/15/2005 13:10:28 05/15/2005 13:11:25 [id number] [facility] - [facility] [address] [place] [address] 06/02/2005 08:59:09 06/02/2005 09:00:10 [id number] Gricelda Layne MD FP, [facility], OFFICE [address] [place] [address] 1 06/09/2005 09:48:13 06/09/2005 17:49:27 [id number] [facility] - [facility] [address] [place] [address] 06/30/2005 07:39:14 06/30/2005 10:47:09 [id number] [facility] - [facility] [address] [place] [address] 07/15/2005 07:35:21 07/15/2005 10:38:06 [id number] [facility] - [facility] [address] [place] [address] 08/05/2005 07:38:24 08/05/2005 10:34:53 [id number] FP TREATMENT NURSE [facility] FP, [facility], OFFICE [address] [place] [address] 1 08/08/2005 11:53:47 08/08/2005 14:52:47 [id number] FP TREATMENT NURSE [facility] FP, [facility], OFFICE [address] [place] [address] 1 08/11/2005 10:19:48 08/11/2005 15:05:14 [id number] FP TREATMENT NURSE [facility] FP, [facility], OFFICE [address] [place] [address] 1 08/18/2005 10:57:06 08/18/2005 15:15:34 [id number] FP TREATMENT NURSE [facility] FP, [facility], OFFICE [address] [place] [address] 1 08/25/2005 11:48:03 08/25/2005 17:40:40 [id number] FP TREATMENT NURSE [facility] FP, [facility], OFFICE [address] [place] [address] 09/17/2005 11:31:19 09/17/2005 15:17:53 [id number] Gricelda Layne MD FP, [facility], OFFICE [address] [place] [address] 1 10/09/2005 16:05:18 10/10/2005 16:24:20 [id number] FP TREATMENT NURSE [facility] FP, [facility], OFFICE [address] [place] [address] 1 10/20/2005 09:54:51 10/20/2005 17:30:28 [id number] FP TREATMENT NURSE [facility] FP, [facility], OFFICE [address] [place] [address] 1 11/17/2005 10:54:13 11/17/2005 17:50:24 [id number] [facility] - [facility] [address] [place] [address] 1 11/28/2005 07:30:03 11/28/2005 08:43:26 [id number] FP TREATMENT NURSE [facility], [facility], OFFICE [address] [place] [address] 1 12/01/2005 10:50:57 05/17/2008 02:02:29 [id number] [facility] - [address] [place] [address] 12/01/2005 11:06:46 12/01/2005 11:07:08 [id number] FP TREATMENT NURSE [facility], [facility], OFFICE [address] [place] [address] 1 12/02/2005 09:40:49 12/02/2005 12:24:54 [id number] MD RODGER Raza, [facility], OFFICE [address] [place] [address] 1 12/05/2005 10:52:16 12/08/2005 09:32:36 [id number] FP TREATMENT NURSE [facility], [facility], OFFICE [address] [place] [address] 1 12/10/2005 14:20:32 12/10/2005 17:21:31 [id number] FP TREATMENT NURSE [facility], [facility], OFFICE [address] [place] [address] 1 12/12/2005 10:12:02 12/12/2005 13:55:19 [id number] [facility] - [address] [place] [address] 12/15/2005 07:56:58 12/15/2005 10:52:40 [id number] [facility] - [address] [place] [address] 1 12/19/2005 09:58:38 12/19/2005 09:58:49 Health Concerns Section Related Observation LastModified by Organization Detai ls LastModified Time None Recorded Concern Status LastModified by Organization Details LastModified Time None Recorded Advance Directives Directive None Recorded Payers Insurance Date Sequence Insurance Name Policy Number Policy Arce Covered Member ID Arce Member ID Guarantor Name 03/09/2006 1 [employer]ALIC[employer] - MEDICARE-[address] [employer] [employer] (MEDICARE) Mary Jane aCrpenter [id number] 03/09/2006 [facility] SUPP[facility]) Mary Jane Carpenter [id number] 11/16/2003 1 *SELF PAY* 03/09/2006 1 [facility] CLAIMS [id number] Mary Jane Falcongregor [id number] OBGyn Episode No OBEpisode recorded.
== END 2024-11-14 13:32 | disposition home or self-care (01) ==
LOC: HO.ACS 13:02
PROVIDERS: Visit Provider Internal Medicine Medical Oncology
DX: Z79.01 Long term (current) use of anticoagulants (principal)

== ENCOUNTER → 2024-11-14 13:02 | Outpatient (BNVA) | payer OTHER, MEDICAID, SELFPAY | PROVIDERS: Visit Provider Internal Medicine Medical Oncology | DX: Z86.718 Personal history of other venous thrombosis and embolism (principal); Z79.01 Long term (current) use of anticoagulants; Z51.81 Encounter for therapeutic drug level monitoring | CPT/HCPCS: 85610; 99211 ==

== ENCOUNTER 2024-11-16 10:56 | Outpatient (AMB) | payer MEDICARE, SELFPAY ==
--- NOTE | 2024-11-16 10:55 | A.OFFVIS_ITS ---
Intake Visit Reasons: kidney cysts Intake Note: New Patient is present for kidney cyst Urology Rx:none PVR:170 mls Blood Thinners:asprin Imaging completed: 08/12/24 Water Softener Service Supervisor Required: No Accompanied by: Self / Same As Patient Allergies shrimp (SHRIMP) Allergy (Mild, Verified 11/16/24 14:05) HIVES diltiazem Adverse Reaction (Severe, Uncoded 11/16/24 14:05) feet pain, swelling Medication List - Last Reconciled 11/16/24 by DIPIKA Gil ammonium lactate 12% 1 appl topical BID atorvastatin 40 mg PO DAILY betamethasone dipropionate 0.05% appl topical DAILY blood sugar diagnostic (Accu-Chek Guide test strips) As directed 2 times per day blood-glucose meter TEST 2 TIMES DAILY blood-glucose meter (Accu-Chek Guide Glucose Meter) As directed cholecalciferol (vitamin D3) 1,000 units PO DAILY cyanocobalamin (vitamin B-12) 1,000 mcg PO DAILY esomeprazole magnesium (Nexium) 20 mg PO DAILY furosemide 40 mg PO BID glipizide 5 mg PO DAILY hydrocortisone 1% (Anti-Itch (hydrocortisone)) 1 appl topical BID PRN 2 weeks lancets (Accu-Chek Softclix Lancets) Use 1 Lancet once a day lancing device ACCU-CHECK DARLINE DEVICE lancing device (Adjustable Lancing Device) As directed lisinopril 40 mg PO DAILY 90 days phenytoin sodium extended 200 mg (2 x 100 mg) PO BID 90 days terazosin 1 mg PO BEDTIME 30 days tizanidine 4 mg PO Q8H PRN vitamins A,C,I-whgo-sttqnq (PreserVision AREDS) PO BID warfarin 5 mg See Protocol PO DAILY HPI Comments Details: Mary Jane is a very pleasant 79-year-old female patient of Dr. Patton. She has a past medical history of obesity, epilepsy, GERD, vitamin-D deficiency, hyperlipidemia, hypertension, diabetes, paroxysmal AFib, factor 5 Leiden, and DVT on anticoagulation. She presents to the office today as a new patient for renal cysts as well as incomplete bladder emptying. In review of patient's chart it appears renal ultrasound 08/19 noted 2.5 cm in 2.3 cm simple right renal peripelvic cysts. Normal sonographic appearance of left kidney. She reports her ongoing issues with lower leg edema in his unsure if this is related to her circulation or her kidneys. She reports having followed up with her doctor of osteopathy and has recently increased her diuretic and continues to experience bilateral lower leg edema. Unable to obtain urine for urinalysis as patient unable to void however PVR 170 mL. We did discussed potential causes of renal cysts as well as incomplete bladder emptying. We did discussed further treatment options and risks and benefits of these treatment options. She denies urinary urgency, urinary frequency, incontinence, nocturia, hematuria, dysuria, foul smelling urine, changes to urinary stream, flank pain, fever, and or chills. She does report feeling feeling of incomplete bladder emptying at times. All questions were answered. She also discusses a previous history of recurrent urinary tract infections 2 years ago. We did discuss correlation of incomplete bladder emptying and recurrent urinary tract infections. We did discuss lifestyle modifications to assist with incomplete bladder emptying such as double voiding. All questions were answered. She otherwise offers no other issues or concerns at this time. A1c 11/18 5.9 PFSH Medical History Morbid obesity with BMI of 40.0-44.9, adult Epilepsy GERD without esophagitis Vitamin D deficiency Mixed hyperlipidemia Essential hypertension Diabetes mellitus PAF (paroxysmal atrial fibrillation) Atrial fibrillation Factor V Leiden DVT (deep venous thrombosis) Hyperlipidemia Hypertension Diabetes mellitus with coincident hypertension Surgical History History of lumpectomy of right breast History of appendectomy History of cholecystectomy Family History Father Asthma Mother Diabetes Hypertension Colon cancer Other Substance use disorder Social History Household Members: None Housing: Apartment Do you presently have visiting nurse or other home services: No Alcohol intake: never Patient Tobacco Use Status: Never used Tobacco Tobacco use type: Cigarette e-Cigarette/Vaping Use: Never Used Second Hand Smoke Exposure: No Advance Directives Date on File: 02/03/23 service: No Current occupational status: employed Cognitive needs: No Hearing needs: No Vision needs: No Review of Systems Eyes Reports no additional complaints ENT Reports no additional complaints Card Reports as per HPI Resp Reports no additional complaints GI Reports as per HPI Reports as per HPI Musc Reports no additional complaints Neuro Reports as per HPI Psych Reports no additional complaints Endo Reports as per HPI Physical Exam Const General: cooperative, comfortable, no acute distress, well developed, alert and awake Nutritional Appearance: overweight Orientation/consciousness: patient oriented x3 Limitations: no limitations HEENT Head: Yes normal to inspection, Yes normocephalic and Yes atraumatic Ears: hearing grossly normal bilaterally Eyes General: appearance normal, both eyes and all related structures Neck Neck: Yes normal visual inspection and Yes trachea midline Chest Chest palpation & inspection: normal inspection of the chest Resp Effort & Inspection: normal respiratory effort and able to speak in complete sentences Cardio Rate: regular rate GI Inspection: Yes normal to inspection General: Yes no CVA tenderness Back/Spine/Pelvis Back: no CVA tenderness Skin General skin exam: no rashes or lesions noted Neuro General: patient oriented x3 Extrem General: Yes normal to inspection Psych Appearance: grossly normal and well kempt Mental Status: mental status grossly normal Speech and movement: Normal speech and movement present and Clear speech present Affect: normal affect Attitude: cooperative Thought process: Normal thought process present Thought content: Normal thought content present Insight: Fair insight present (Psych) Judgement: Fair judgement present (Psych) Office Procedures Post Void Residual Post Residual Void Post Void Residual (PVR): 170 [id number] Void Residual by ultrasound Results Reviewed Results Reviewed: Date of Service: 08/11/24 Procedure(s): US renal BI US Renal Comparison: None Findings: Right kidney normal size and echotexture, 9.0 cm length. 2.5 cm and 2.3 cm anechoic right renal parapelvic cysts are present. Left kidney normal size and echotexture, 9.8 cm length. No collecting system dilatation of either kidney. IMPRESSION: 1. 2.5 cm and 2.3 cm simple right renal parapelvic cysts. 2. Normal sonographic appearance of the left kidney. Assessment & Plan Assessment & Plan (1) Morbid obesity with BMI of 40.0-44.9, adult: Code(s): E66.01 - Morbid (severe) obesity due to excess calories; Z68.41 - Body mass index [BMI] 40.0-44.9, adult Category: Medical (2) Renal cyst: Code(s): N28.1 - Cyst of kidney, acquired Category: Medical (3) Incomplete bladder emptying: Code(s): R33.9 - Retention of urine, unspecified Category: Medical Plan Unable to obtain urine for urinalysis as patient unable to void. PVR 170 mL. Recent renal imaging results reviewed with the patient today; as noted above. We discussed potential causes of renal cysts as well as classifications. We discussed incomplete bladder emptying Discussed double voiding. Start terazosin as discussed and prescribed. She denies any UTI like symptoms. We discussed obtaining bladder ultrasound; she would like to think about this. Will refer to weight management for further assessment evaluation as patient is requesting referral. We discussed importance of management and diabetes for overall health and well- being. Follow-up in 1-3 months with PVR; or sooner with any issues, concerns, and or questions. Orders: Orders AMB Post Void Residual by ultrasound Today N39.0 - Urinary tract infection, site not specified AMB Urinalysis Automated Today Z13.9 - Encounter for screening, unspecified Referrals Medical Weight Management Referral E66.01 - Morbid (severe) obesity due to excess calories, Z68.41 - Body mass index [BMI] 40.0-44.9, adult Medications: New terazosin 1 mg PO BEDTIME 30 caps 3RF 30 days R39.12 - Poor urinary stream Patient Instructions: The patient had an opportunity to ask questions regarding the treatment plan. All questions were answered. Physical exam, labs, and imaging were discussed and reviewed in detail. As well as risks, benefits, and discussion of treatment choices. No major barriers to understanding were identified. The patient expressed understanding and agreement with the above treatment plan. The patient was made aware they should contact our office by phone for worsening of their current condition, the appearance of new symptoms, or with any questions or concerns. Compliance is encouraged with any medications and follow up testing that is ordered. It is a privilege to be allowed the opportunity to participate in? your urological care.? Again, if you have any questions or concerns If you have any questions or concerns please do not hesitate to contact me. The office is [phone]. This note is constructed using voice recognition software. While every effort has been made to ensure accuracy justice court judge errors may have been included. Yours sincerely, DIPIKA Gil Coding Level of Care Code New Pt Level 4 (70869) Diagnoses Morbid obesity with BMI of 40.0-44.9, adult E66.01; Z68.41 Renal cyst N28.1 Incomplete bladder emptying R33.9 CPT Codes Post Residual Void - PVR CPT Code: 80714-Fsdt Void Residual by ultrasound ([id number])
--- OUTSIDE RECORDS SUMMARY | 2024-11-16 11:57 | XMS_ITS | Data Portability ---
Author Organization [place] [facility], , [facility] Address [address] [place] [address] Assessment No assessment recorded. Plan of Treatment [...] ) ALT 42 U/L 30-65 Not Available [address], [address], 06/26/2008 02:36:06 11/29/1911/28/2005 hemog lobin A1C w/ mpg hemoglobin A1C 5.6 % 4.8-6. 0 goal: <7% in patie nts with diabe ernestine Not Available [address], [address], 06/26/2008 02:36:06 11/29/1911/28/2005 lipid panel cholesterol 245 mg/dL <200 mg/dL naz eable 200-2 39 mg/dL borde rline high >240 mg/dL high Not Available [address], [address], 06/26/2008 02:36:06 11/29/1911/28/2005 lipid panel triglyceride s 216 mg/dL <150 mg/dL helene l 150-1 99 mg/dL borde rline high 200-4 99 mg/dL high >500 mg/dL very high Not Available [address], [address], 06/26/2008 02:36:06 11/29/1911/28/2005 lipid panel direct HDL 62 mg/dL <40 mg/dL - major risk for CHD >60 mg/dL - negat danyell risk for CHD Not Available [address], [address], 06/26/2008 02:36:06 11/29/1911/28/2005 lipid panel direct LDL 141 mg/dL risk categ ory LDL goal _ CHD or CHD risk equiv alent s <100 mg/dL (10-y ear risk >20%) 2+ risk facto rs <130 mg/dL (10-y ear risk <= 20%) 0-1 risk facto r <160 mg/dL [facility] all peopl e with 0-1 risk facto r have A 10 year risk <10%, thus 10 year risk asses ment in peopl e with 0-1 risk facto r IS not kike faby. Not Available [address], [address], 06/26/2008 02:36:06 12/02/19 06 12/01/2005 protmei jha n time PT 41.1 secon ds 9.0-10 .4 high Not Available [address], [address], 06/26/2008 03:22:12 12/02/19 06 12/01/2005 proth rombi n time INR 4.1 0.9-1. 1 high sugge sted value of 2.0-3 .0 for proph ylaxi s of venou s thomb osis, and preve ntion of embol ism. sugge sted value of 2.5-3 .5 for preve ntion of recur rent embol ism or patie nts with mecha nical prost hetic heart valve s. Not Available [address], [address], 06/26/2008 03:22:12 12/16/19 06 12/15/2005 proth rombi n time PT 23.6 secon ds 9.0-10 .4 high Not Available [address], [address], 06/26/2008 03:41:29 12/16/19 06 12/15/2005 proth rombi n time INR 2.4 0.9-1. 1 high sugge sted value of 2.0-3 .0 for proph ylaxi s of venou s thomb osis, and preve ntion of embol ism. sugge sted value of 2.5-3 .5 for preve ntion of recur rent embol ism or patie nts with mecha nical prost hetic heart valve s. Not Available [address], [address], 06/26/2008 03:41:29 12/20/19 06 12/19/2005 proth rombi n time PT 23.3 secon ds 9.0-10 .4 high Not Available [address], [address], 06/26/2008 03:27:20 12/20/19 06 12/19/2005 proth rombi n time INR 2.4 0.9-1. 1 high sugge sted value of 2.0-3 .0 for proph ylaxi s of venou s thomb osis, and preve ntion of embol ism. sugge sted value of 2.5-3 .5 for preve ntion of recur rent embol ism or patie nts with mecha nical prost hetic heart valve s. Not Available [address], [address], 06/26/2008 03:27:20 Result Notes None recorded. 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 Not Available [facility] 3 03:12:20 Edema of extremity 713723802 Completed 200303/16/2013 Not Available [facility] 3 02:02:55 Type 2 diabetes mellitus without complicati on 987750061 Active 2003 Not Available [facility] 3 03:12:20 Essential hypertensi on 47393435 Active 2003 Not Available [facility] 3 03:12:20 Abnormal weight gain 793180778 Active 2003 Not Available [facility] 3 03:12:20 Generalize d abdominal pain 449323128 Completed 200303/16/2013 Not Available [facility] 3 02:02:06 Streptococ samm sore throat 65661828 Completed 200303/16/2013 Not Available [facility] 3 02:02:03 Cough 53925209 Completed 200303/16/2013 Not Available [facility] 3 02:01:09 Peripheral venous insufficie ncy 90402955 Active 2003 Not Available [facility] 3 03:12:20 On examinatio n - a rash Completed 200403/16/2013 Not Available [facility] 3 02:00:49 Acute bronchitis 69149634 Completed 200403/16/2013 Not Available [facility] 3 02:01:37 Acute maxillary sinusitis 48234493 Completed 200403/16/2013 Not Available [facility] 3 02:01:43 Hyperlipid emia 23988644 Active 2004 Not Available [facility] 3 03:12:20 Common cold 64500318 Completed 200403/16/2013 Not Available [facility] 3 02:00:29 Seizure 67841759 Active 2004 Not Available [facility] 3 03:12:20 Hypothyroi dism 93403109 Active 2004 Not Available [facility] 3 03:12:20 Pain of joint of hand 551389781 Completed 200403/16/2013 Not Available [facility] 3 02:02:43 Atrial fibrillati on 65509257 Active 2004 Not Available [facility] 3 03:12:20 Thromboemb olic disorder 671430923 Active 2005 Not Available [facility] 3 03:12:20 Major depression , melancholi c type 332103785 Active 2005 Not Available [facility] 3 03:12:20 Problem Notes None recorded. Medical [...] unspecified formulation 4 completed Not Available [facility] 03/12/2011 05:21:07 influenza, unspecified formulation 4 completed Not Available [facility] 03/12/2011 05:21:07 influenza, unspecified formulation 5 completed Not Available [facility] 03/12/2011 05:21:29 influenza, unspecified formulation 5 completed Not Available [facility] 03/12/2011 05:21:29 Past Encounters Encounter ID Performer Location Encounter Start Date Encounter Closed Date Diagnosis/Indication Diagnosis SNOMED-CT Code Diagnosis ICD10 Code Diagnosis Note [id number] Gricelda Layne MD , [facility], OFFICE [address] [place] [id number] 11/16/2003 12:14:30 11/22/2003 09:27:14 [id number] Gricelda Layne MD , [facility], OFFICE [address] [place] [address] [place] [id number] 1 12/22/2003 09:56:38 12/25/2003 15:40:32 [id number] Gricelda Layne MD , [facility], OFFICE [address] [place] [id number] 01/19/2004 09:54:48 01/22/2004 08:56:58 [id number] FP TREATMENT NURSE [facility], [facility] [address] [place] [id number] 02/02/2004 09:07:12 02/02/2004 12:21:32 [id number] [facility] LAB LAB - [address] [place] [id number] 02/02/2004 07:26:36 02/02/2004 09:21:04 [id number] FP TREATMENT NURSE [facility] OFFICE [address] [place] [address] [place] [id number] 1 03/07/2004 08:50:31 03/07/2004 17:12:49 [id number] Gricelda Layne MD , [facility], OFFICE [address] [place] [address] [place] [id number] 04/05/2004 09:48:00 04/09/2004 08:47:39 [id number] FP TREATMENT NURSE [facility] OFFICE [address] [place] [address] [place] [id number] 1 04/15/2004 15:03:12 04/15/2004 17:36:23 [id number] MD RODGER Raza, [facility] [address] [place] [address] [place] [id number] 1 04/12/2004 10:53:34 05/17/2008 02:02:29 [id number] FP TREATMENT NURSE [facility], [facility] [address] [place] [address] [place] [id number] 04/22/2004 14:57:11 04/23/2004 09:26:19 [id number] Gricelda Layne MD , [facility], OFFICE [address] [place] [address] [place] [id number] 1 05/03/2004 10:24:03 05/06/2004 08:51:52 [id number] Reid Ya , [facility], OFFICE [address] [place] [id number] 05/20/2004 10:47:03 05/21/2004 08:35:20 [id number] Yarelis MADISON FP, [facility], OFFICE [address] [place] [id number] 05/24/2004 11:19:37 05/27/2004 09:14:32 [id number] FP TREATMENT NURSE [facility], [facility], OFFICE [address] [place] [id number] 05/27/2004 09:35:41 05/28/2004 09:13:28 [id number] Gricelda Layne MD FP, [facility], OFFICE [address] [place] [id number] 06/04/2004 08:58:14 06/04/2004 17:23:42 [id number] FP TREATMENT NURSE [facility], [facility], OFFICE [address] [place] [id number] 1 06/18/2004 10:00:16 06/18/2004 16:52:29 [id number] [facility] LAB LAB - [facility] [address] [facility] [place] [id number] 06/18/2004 07:34:32 06/18/2004 09:59:04 [id number] Gricelda Layne MD FP, [facility], OFFICE [address] [place] [id number] 06/27/2004 11:46:29 06/28/2004 09:09:13 [id number] FP TREATMENT NURSE [facility], [facility], OFFICE [address] [place] [id number] 08/14/2004 11:47:27 08/15/2004 08:54:14 [id number] Gricelda Layne MD FP, [facility], OFFICE [address] [place] [id number] 1 09/19/2004 16:03:15 09/20/2004 16:06:43 [id number] FP TREATMENT NURSE [facility], [facility], OFFICE [address] [place] [id number] 10/17/2004 08:40:42 10/17/2004 15:32:26 [id number] [facility] LAB LAB - [facility] [address] [place] [id number] 10/17/2004 07:29:38 10/17/2004 09:02:48 [id number] MD RODGER Raza, [facility], OFFICE [address] [place] [id number] 1 10/25/2004 10:49:52 11/01/2004 08:36:26 [id number] FP TREATMENT NURSE [facility] FP, [facility], OFFICE [address] [place] [id number] 1 11/19/2004 09:04:39 11/20/2004 08:14:19 [id number] FP TREATMENT NURSE [facility] FP, [facility], OFFICE [address] [place] [id number] 1 11/26/2004 08:55:17 11/26/2004 16:24:15 [id number] FP TREATMENT NURSE [facility] FP, [facility], OFFICE [address] [place] [id number] 12/03/2004 09:11:25 12/04/2004 14:38:40 [id number] [facility] MAMMOGRAPH Y Technologi st Radiology , [facility] [address] [place] [id number] 12/05/2004 10:50:31 12/05/2004 11:29:40 [id number] FP TREATMENT NURSE [facility] FP, [facility], OFFICE [address] [place] [id number] 12/20/2004 08:19:23 12/20/2004 15:41:51 [id number] [facility] LAB LAB - [facility] [address] [place] [id number] 12/20/2004 07:34:27 12/20/2004 08:05:52 [id number] FP TREATMENT NURSE [facility] FP, [facility], OFFICE [address] [place] [id number] 12/27/2004 09:49:39 12/27/2004 15:08:31 [id number] MD RODGER Raza, [facility], OFFICE [address] [place] [id number] 12/31/2004 11:01:20 01/02/2005 10:36:32 [id number] FP TREATMENT NURSE [facility] FP, [facility], OFFICE [address] [place] [id number] 01/08/2005 10:14:21 01/08/2005 15:13:20 [id number] FP TREATMENT NURSE [facility] FP, [facility], OFFICE [address] [place] [id number] 01/16/2005 10:11:30 01/16/2005 15:05:45 [id number] FP TREATMENT NURSE [facility] FP, [facility], OFFICE [address] [place] [id number] 1 01/30/2005 10:31:42 01/30/2005 14:44:48 [id number] [facility] FLU CLINIC FP, [facility], OFFICE [address] [place] [id number] 02/18/2005 15:03:31 02/18/2005 17:29:51 [id number] FP TREATMENT NURSE [facility] FP, [facility], OFFICE [address] [place] [id number] 03/05/2005 14:53:36 03/05/2005 17:29:44 [id number] Gricelda Layne MD FP, [facility], OFFICE [address] [place] [id number] 1 03/06/2005 11:53:52 03/06/2005 15:47:59 [id number] [facility] LAB LAB - [facility] [address] [place] [id number] 03/05/2005 15:26:52 03/05/2005 15:27:17 [id number] Gricelda Layne MD FP, [facility], OFFICE [address] [place] [id number] 1 03/18/2005 16:33:44 03/19/2005 08:28:27 [id number] FP TREATMENT NURSE [facility] FP, [facility], OFFICE [address] [place] [id number] 1 03/26/2005 14:01:26 03/26/2005 16:56:44 [id number] FP TREATMENT NURSE [facility] FP, [facility], OFFICE [address] [place] [id number] 04/25/2005 15:06:42 04/29/2005 10:24:01 [id number] FP TREATMENT NURSE [facility] FP, [facility], OFFICE [address] [place] [id number] 1 04/02/2005 13:33:35 04/02/2005 14:27:19 [id number] [facility] LAB LAB - [facility] [address] [place] [id number] 05/15/2005 13:10:28 05/15/2005 13:11:25 [id number] [facility] LAB LAB - [facility] [address] [place] [id number] 06/02/2005 08:59:09 06/02/2005 09:00:10 [id number] Gricelda Layne MD FP, [facility], OFFICE [address] [place] [id number] 1 06/09/2005 09:48:13 06/09/2005 17:49:27 [id number] [facility] LAB LAB - [facility] [address] [place] [id number] 06/30/2005 07:39:14 06/30/2005 10:47:09 [id number] [facility] LAB - [facility] [address] [place] [id number] 1 07/15/2005 07:35:21 07/15/2005 10:38:06 [id number] [facility] LAB - [facility] [address] [place] [id number] 08/05/2005 07:38:24 08/05/2005 10:34:53 [id number] FP TREATMENT NURSE [facility] FP, [facility], OFFICE [address] [place] [id number] 1 08/08/2005 11:53:47 08/08/2005 14:52:47 [id number] FP TREATMENT NURSE [facility] FP, [facility], OFFICE [address] [place] [id number] 1 08/11/2005 10:19:48 08/11/2005 15:05:14 [id number] FP TREATMENT NURSE [facility] FP, [facility], OFFICE [address] [place] [id number] 1 08/18/2005 10:57:06 08/18/2005 15:15:34 [id number] FP TREATMENT NURSE [facility] FP, [facility], OFFICE [address] [place] [id number] 1 08/25/2005 11:48:03 08/25/2005 17:40:40 [id number] FP TREATMENT NURSE [facility] FP, [facility], OFFICE [address] [place] [id number] 1 09/17/2005 11:31:19 09/17/2005 15:17:53 [id number] Gricelda Layne MD FP, [facility], OFFICE [address] [place] [id number] 10/09/2005 16:05:18 10/10/2005 16:24:20 [id number] FP TREATMENT NURSE [facility] FP, [facility], OFFICE [address] [place] [id number] 1 10/20/2005 09:54:51 10/20/2005 17:30:28 [id number] FP TREATMENT NURSE [facility] FP, [facility], OFFICE [address] [place] [id number] 11/17/2005 10:54:13 11/17/2005 17:50:24 [id number] [facility] LAB LAB - [facility] [address] [place] [id number] 11/28/2005 07:30:03 11/28/2005 08:43:26 [id number] FP TREATMENT NURSE [facility], [facility], OFFICE [address] [place] [id number] 1 12/01/2005 10:50:57 05/17/2008 02:02:29 [id number] [facility] LAB LAB - [address] [place] [id number] 12/01/2005 11:06:46 12/01/2005 11:07:08 [id number] FP TREATMENT NURSE [facility], [facility], OFFICE [address] [place] [id number] 1 12/02/2005 09:40:49 12/02/2005 12:24:54 [id number] MD RODGER Raza, [facility], OFFICE [address] [place] [id number] 1 12/05/2005 10:52:16 12/08/2005 09:32:36 [id number] FP TREATMENT NURSE [facility], [facility], OFFICE [address] [place] [id number] 1 12/10/2005 14:20:32 12/10/2005 17:21:31 [id number] FP TREATMENT NURSE [facility], [facility], OFFICE [address] [place] [id number] 1 12/12/2005 10:12:02 12/12/2005 13:55:19 [id number] [facility] LAB LAB - [address] [place] [id number] 12/15/2005 07:56:58 12/15/2005 10:52:40 [id number] [facility] LAB LAB - [address] [place] [id number] 12/19/2005 09:58:38 12/19/2005 09:58:49 Health Concerns Section Related Observation LastModified by Organization Detai ls LastModified Time None Recorded Concern Status LastModified by Organization Details LastModified Time None Recorded Advance Directives Directive None Recorded Payers Insurance Date Sequence Insurance Name Policy Number Policy Arce Covered Member ID Arce Member ID Guarantor Name 03/09/2006 1 [employer] - MEDICARE-[address] INTERMEDIATE BOARD (MEDICARE) Mary Jane Carpenter [id number] 03/09/2006 [facility] Mary Jane Carpenter [id number] 11/16/2003 1 *SELF PAY* 03/09/2006 1 [facility] [id number] Mary Jane Falcongregor [id number] OBGyn Episode No OBEpisode recorded.
--- OUTSIDE RECORDS SUMMARY | 2024-11-16 11:57 | XMS_ITS | Clinical Summary ---
Author Organization [facility] Address [address] [place] [address] Phone Care Team Providers Care Fish Salter Name Role Phone Unavailable Primary Care Provider [...]
== END 2024-11-16 12:50 | disposition home or self-care (01) ==
LOC: HO.HUSH 10:57
PROVIDERS: PCP Internal Medicine; Visit Provider Nurse Practitioner Family
DX: E66.01 Morbid (severe) obesity due to excess calories (principal); Z68.41 Body mass index [BMI] 40.0-44.9, adult; N28.1 Cyst of kidney, acquired; R33.9 Retention of urine, unspecified
CPT/HCPCS: 99204

== ENCOUNTER → 2024-11-16 10:56 | Outpatient (BNVA) | payer MEDICARE, SELFPAY | PROVIDERS: PCP Internal Medicine; Visit Provider Nurse Practitioner Family | DX: R33.9 Retention of urine, unspecified (principal); N28.1 Cyst of kidney, acquired; E66.01 Morbid (severe) obesity due to excess calories; Z68.41 Body mass index [BMI] 40.0-44.9, adult | CPT/HCPCS: 51798; 99202 ==

== ENCOUNTER 2024-11-22 12:42 | Outpatient (AMB) | payer MEDICARE, SELFPAY ==
[2024-11-22 12:48] LABS: Prothrombin Time Whole Bld POC 35.5 sec (11.1-13.5); ~PT, ~INR - Anti Coag Clinic 3.0 (0.9-1.1)
--- NOTE | 2024-11-22 12:55 | MHC.OFFVISCO ---
Intake Intake Visit Reasons: Anticoagulation Allergies shrimp (SHRIMP) Allergy (Mild, Verified 11/22/24 12:42) HIVES diltiazem Adverse Reaction (Severe, Uncoded 11/22/24 12:42) feet pain, swelling Medication List - Last Reconciled 11/22/24 by Clover Granados RN ammonium lactate 12% 1 appl topical BID atorvastatin 40 mg PO DAILY betamethasone dipropionate 0.05% appl topical DAILY blood sugar diagnostic (Accu-Chek Guide test strips) As directed 2 times per day blood-glucose meter TEST 2 TIMES DAILY blood-glucose meter (Accu-Chek Guide Glucose Meter) As directed cholecalciferol (vitamin D3) 1,000 units PO DAILY cyanocobalamin (vitamin B-12) 1,000 mcg PO DAILY esomeprazole magnesium (Nexium) 20 mg PO DAILY furosemide 40 mg PO BID glipizide 5 mg PO DAILY hydrocortisone 1% (Anti-Itch (hydrocortisone)) 1 appl topical BID PRN 2 weeks lancets (Accu-Chek Softclix Lancets) Use 1 Lancet once a day lancing device ACCU-CHECK DARLINE DEVICE lancing device (Adjustable Lancing Device) As directed lisinopril 40 mg PO DAILY 90 days phenytoin sodium extended 200 mg (2 x 100 mg) PO BID 90 days terazosin 1 mg PO BEDTIME 30 days tizanidine 4 mg PO Q8H PRN vitamins A,C,A-kasf-aumfxq (PreserVision AREDS) PO BID warfarin 5 mg See Protocol PO DAILY Nursing Note INR: 3.0 in therapeutic range of 2-3 Medications and supplements reviewed No changes in health, diet, medications, or supplements, Denies any signs and symptoms of bleeding or bruising or clotting. Bleeding, bruising, clotting discussed Nutritional guidance given to have a serving of greens today Dose: 5mg daily F/U INR: 1 week Patient verbalizes understanding of instructions given Anti-Coag Initial Assessment Social Hx Patient Tobacco Use Status: Never used Tobacco Tobacco use type: Cigarette alcohol intake: never Alcohol intake frequency: holidays/special occasions only Coding Level of Care Code Est Patient Level 1 Diagnoses Current use of anticoagulant therapy Z79.01 Results AMB INR Fingerstick AMB INR Fingerstick 3.0 Last Edit by Clover Granados RN on 11/22/24 12:48 interface delay Assessment & Plan Assessment & Plan (1) Current use of anticoagulant therapy: Code(s): Z79.01 - 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
--- OUTSIDE RECORDS SUMMARY | 2024-11-22 13:26 | XMS_ITS | Clinical Summary ---
Author Organization [facility] Address [address] [place] [address] Phone Care Team Providers Care Rn Resource Nurse Name Role Phone Unavailable Primary Care Provider [...]
--- OUTSIDE RECORDS SUMMARY | 2024-11-22 13:26 | XMS_ITS | Data Portability ---
Author Organization [place] [facility], , [facility] Address [address] [place] [address] Assessment No assessment recorded. Plan of Treatment [...] ) ALT 42 U/L 30-65 Not Available [address], [address], 06/26/2008 02:36:06 11/29/1911/28/2005 hemog lobin A1C w/ mpg hemoglobin A1C 5.6 % 4.8-6. 0 goal: <7% in patie nts with diabe ernestine Not Available [address], [address], 06/26/2008 02:36:06 11/29/1911/28/2005 lipid panel cholesterol 245 mg/dL <200 mg/dL naz eable 200-2 39 mg/dL borde rline high >240 mg/dL high Not Available [address], [address], 06/26/2008 02:36:06 11/29/1911/28/2005 lipid panel triglyceride s 216 mg/dL <150 mg/dL helene l 150-1 99 mg/dL borde rline high 200-4 99 mg/dL high >500 mg/dL very high Not Available [address], [address], 06/26/2008 02:36:06 11/29/1911/28/2005 lipid panel direct HDL 62 mg/dL <40 mg/dL - major risk for CHD >60 mg/dL - negat danyell risk for CHD Not Available [address], [address], 06/26/2008 02:36:06 11/29/1911/28/2005 lipid panel direct LDL 141 mg/dL risk categ ory LDL goal _ CHD or CHD risk equiv alent s <100 mg/dL (10-y ear risk >20%) 2+ risk facto rs <130 mg/dL (10-y ear risk <= 20%) 0-1 risk facto r <160 mg/dL [facility] all peopl e with 0-1 risk facto r have A 10 year risk <10%, thus 10 year risk asses ment in peopl e with 0-1 risk facto r IS not kike faby. Not Available [address], [address], 06/26/2008 02:36:06 12/02/19 06 12/01/2005 protmei jha n time PT 41.1 secon ds 9.0-10 .4 high Not Available [address], [address], 06/26/2008 03:22:12 12/02/19 06 12/01/2005 proth rombi n time INR 4.1 0.9-1. 1 high sugge sted value of 2.0-3 .0 for proph ylaxi s of venou s thomb osis, and preve ntion of embol ism. sugge sted value of 2.5-3 .5 for preve ntion of recur rent embol ism or patie nts with mecha nical prost hetic heart valve s. Not Available [address], [address], 06/26/2008 03:22:12 12/16/19 06 12/15/2005 proth rombi n time PT 23.6 secon ds 9.0-10 .4 high Not Available [address], [address], 06/26/2008 03:41:29 12/16/19 06 12/15/2005 proth rombi n time INR 2.4 0.9-1. 1 high sugge sted value of 2.0-3 .0 for proph ylaxi s of venou s thomb osis, and preve ntion of embol ism. sugge sted value of 2.5-3 .5 for preve ntion of recur rent embol ism or patie nts with mecha nical prost hetic heart valve s. Not Available [address], [address], 06/26/2008 03:41:29 12/20/19 06 12/19/2005 proth rombi n time PT 23.3 secon ds 9.0-10 .4 high Not Available [address], [address], 06/26/2008 03:27:20 12/20/19 06 12/19/2005 proth rombi n time INR 2.4 0.9-1. 1 high sugge sted value of 2.0-3 .0 for proph ylaxi s of venou s thomb osis, and preve ntion of embol ism. sugge sted value of 2.5-3 .5 for preve ntion of recur rent embol ism or patie nts with mecha nical prost hetic heart valve s. Not Available [address], [address], 06/26/2008 03:27:20 Result Notes None recorded. 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 Not Available [facility] 3 03:12:20 Edema of extremity 375705554 Completed 200303/16/2013 Not Available [facility] 3 02:02:55 Type 2 diabetes mellitus without complicati on 737993530 Active 2003 Not Available [facility] 3 03:12:20 Essential hypertensi on 42926642 Active 2003 Not Available [facility] 3 03:12:20 Abnormal weight gain 269897221 Active 2003 Not Available [facility] 3 03:12:20 Generalize d abdominal pain 882282490 Completed 200303/16/2013 Not Available [facility] 3 02:02:06 Streptococ samm sore throat 64018145 Completed 200303/16/2013 Not Available [facility] 3 02:02:03 Cough 66703221 Completed 200303/16/2013 Not Available [facility] 3 02:01:09 Peripheral venous insufficie ncy 41729470 Active 2003 Not Available [facility] 3 03:12:20 On examinatio n - a rash Completed 200403/16/2013 Not Available [facility] 3 02:00:49 Acute bronchitis 91684647 Completed 200403/16/2013 Not Available [facility] 3 02:01:37 Acute maxillary sinusitis 83459942 Completed 200403/16/2013 Not Available [facility] 3 02:01:43 Hyperlipid emia 94869494 Active 2004 Not Available [facility] 3 03:12:20 Common cold 75420701 Completed 200403/16/2013 Not Available [facility] 3 02:00:29 Seizure 68693470 Active 2004 Not Available [facility] 3 03:12:20 Hypothyroi dism 67210494 Active 2004 Not Available [facility] 3 03:12:20 Pain of joint of hand 610916519 Completed 200403/16/2013 Not Available [facility] 3 02:02:43 Atrial fibrillati on 79450755 Active 2004 Not Available [facility] 3 03:12:20 Thromboemb olic disorder 708454195 Active 2005 Not Available [facility] 3 03:12:20 Major depression , melancholi c type 195084577 Active 2005 Not Available [facility] 3 03:12:20 Problem Notes None recorded. Medical [...] formulation 4 completed Not Available [facility] 03/12/2011 05:21:07 influenza, unspecified formulation 4 completed Not Available [facility] 03/12/2011 05:21:07 influenza, unspecified formulation 5 completed Not Available [facility] 03/12/2011 05:21:29 influenza, unspecified formulation 5 completed Not Available [facility] 03/12/2011 05:21:29 Past Encounters Encounter ID Performer Location Encounter Start Date Encounter Closed Date Diagnosis/Indication Diagnosis SNOMED-CT Code Diagnosis ICD10 Code Diagnosis Note [id number] Gricelda Layne MD , [facility] OFFICE [address] [place] [id number] 11/16/2003 12:14:30 11/22/2003 09:27:14 [id number] Gricelda Layne MD , [facility], OFFICE [address] [place] [address] [place] [id number] 12/22/2003 09:56:38 12/25/2003 15:40:32 [id number] Gricelda Layne MD , [facility], OFFICE [address] [place] [id number] 01/19/2004 09:54:48 01/22/2004 08:56:58 [id number] FP TREATMENT NURSE [facility], [facility] [place] [address] [place] [id number] 02/02/2004 09:07:12 02/02/2004 12:21:32 [id number] [facility] - [address] [place] [id number] 02/02/2004 07:26:36 02/02/2004 09:21:04 [id number] FP TREATMENT NURSE [facility] OFFICE [address] [place] [address] [place] [id number] 1 03/07/2004 08:50:31 03/07/2004 17:12:49 [id number] Gricelda Layne MD , [facility] [place], OFFICE [address] [place] [address] [place] [id number] 04/05/2004 09:48:00 04/09/2004 08:47:39 [id number] FP TREATMENT NURSE [facility] OFFICE [address] [place] [address] [place] [id number] 1 04/15/2004 15:03:12 04/15/2004 17:36:23 [id number] MD RODGER Raza, [facility] [place] [address] [place] [address] [place] [id number] 04/12/2004 10:53:34 05/17/2008 02:02:29 [id number] FP TREATMENT NURSE [facility], [facility] [place] [address] [place] [address] [place] [id number] 04/22/2004 14:57:11 04/23/2004 09:26:19 [id number] Gricelda Layne MD , [facility] [place], OFFICE [address] [place] [address] [place] [id number] 05/03/2004 10:24:03 05/06/2004 08:51:52 [id number] Reid Ya , [facility] [place], OFFICE [address] [place] [id number] 05/20/2004 10:47:03 05/21/2004 08:35:20 [id number] Yarelis MADISON FP, [facility], OFFICE [address] [place] [id number] 1 05/24/2004 11:19:37 05/27/2004 09:14:32 [id number] FP TREATMENT NURSE [facility], [facility] [place], OFFICE [address] [place] [id number] 05/27/2004 09:35:41 05/28/2004 09:13:28 [id number] Gricelda Layne MD FP, [facility], OFFICE [address] [place] [id number] 06/04/2004 08:58:14 06/04/2004 17:23:42 [id number] FP TREATMENT NURSE [facility], [facility] [place], OFFICE [address] [place] [id number] 06/18/2004 10:00:16 06/18/2004 16:52:29 [id number] [facility] - [facility] [address] [facility] [place] [id number] 06/18/2004 07:34:32 06/18/2004 09:59:04 [id number] Gricelda Layne MD FP, [facility], OFFICE [address] [place] [id number] 06/27/2004 11:46:29 06/28/2004 09:09:13 [id number] FP TREATMENT NURSE [facility], [facility] [place], OFFICE [address] [place] [id number] 08/14/2004 11:47:27 08/15/2004 08:54:14 [id number] Gricelda Layne MD FP, [facility], OFFICE [address] [place] [id number] 09/19/2004 16:03:15 09/20/2004 16:06:43 [id number] FP TREATMENT NURSE [facility], [facility] [place], OFFICE [address] [place] [id number] 10/17/2004 08:40:42 10/17/2004 15:32:26 [id number] [facility] - [facility] [address] [place] [id number] 10/17/2004 07:29:38 10/17/2004 09:02:48 [id number] MD RODGER Raza, [facility], OFFICE [address] [place] [id number] 10/25/2004 10:49:52 11/01/2004 08:36:26 [id number] FP TREATMENT NURSE [facility] FP, [facility], OFFICE [address] [place] [id number] 11/19/2004 09:04:39 11/20/2004 08:14:19 [id number] FP TREATMENT NURSE [facility] FP, [facility], OFFICE [address] [place] [id number] 11/26/2004 08:55:17 11/26/2004 16:24:15 [id number] FP TREATMENT NURSE [facility] FP, [facility], OFFICE [address] [place] [id number] 12/03/2004 09:11:25 12/04/2004 14:38:40 [id number] [facility] M[facility] [facility] [employer] [employer] , [facility] [address] [place] [id number] 12/05/2004 10:50:31 12/05/2004 11:29:40 [id number] FP TREATMENT NURSE [facility] FP, [facility], OFFICE [address] [place] [id number] 12/20/2004 08:19:23 12/20/2004 15:41:51 [id number] [facility] - [facility] [address] [place] [id number] 12/20/2004 07:34:27 12/20/2004 08:05:52 [id number] FP TREATMENT NURSE [facility] FP, [facility], OFFICE [address] [place] [id number] 12/27/2004 09:49:39 12/27/2004 15:08:31 [id number] MD RODGER Raza, [facility] [place], OFFICE [address] [place] [id number] 12/31/2004 11:01:20 01/02/2005 10:36:32 [id number] FP TREATMENT NURSE [facility] FP, [facility], OFFICE [address] [place] [id number] 01/08/2005 10:14:21 01/08/2005 15:13:20 [id number] FP TREATMENT NURSE [facility] FP, [facility], OFFICE [address] [place] [id number] 01/16/2005 10:11:30 01/16/2005 15:05:45 [id number] FP TREATMENT NURSE [facility] FP, [facility], OFFICE [address] [place] [id number] 01/30/2005 10:31:42 01/30/2005 14:44:48 [id number] [facility] FP, [facility], OFFICE [address] [place] [id number] 02/18/2005 15:03:31 02/18/2005 17:29:51 [id number] FP TREATMENT NURSE [facility] FP, [facility], OFFICE [address] [place] [id number] 1 03/05/2005 14:53:36 03/05/2005 17:29:44 [id number] Gricelda Layne MD FP, [facility], OFFICE [address] [place] [id number] 03/06/2005 11:53:52 03/06/2005 15:47:59 [id number] [facility] - [facility] [address] [place] [id number] 03/05/2005 15:26:52 03/05/2005 15:27:17 [id number] Gricelda Layne MD FP, [facility], OFFICE [address] [place] [id number] 03/18/2005 16:33:44 03/19/2005 08:28:27 [id number] FP TREATMENT NURSE [facility] FP, [facility], OFFICE [address] [place] [id number] 03/26/2005 14:01:26 03/26/2005 16:56:44 [id number] FP TREATMENT NURSE [facility] FP, [facility], OFFICE [address] [place] [id number] 04/25/2005 15:06:42 04/29/2005 10:24:01 [id number] FP TREATMENT NURSE [facility] FP, [facility], OFFICE [address] [place] [id number] 1 04/02/2005 13:33:35 04/02/2005 14:27:19 [id number] [facility] - [facility] [address] [place] [id number] 05/15/2005 13:10:28 05/15/2005 13:11:25 [id number] [facility] - [facility] [address] [place] [id number] 06/02/2005 08:59:09 06/02/2005 09:00:10 [id number] Gricelda Layne MD FP, [facility], OFFICE [address] [place] [id number] 06/09/2005 09:48:13 06/09/2005 17:49:27 [id number] [facility] - [facility] [address] [place] [id number] 06/30/2005 07:39:14 06/30/2005 10:47:09 [id number] [facility] - [facility] [address] [place] [id number] 07/15/2005 07:35:21 07/15/2005 10:38:06 [id number] [facility] - [facility] [address] [place] [id number] 08/05/2005 07:38:24 08/05/2005 10:34:53 [id number] FP TREATMENT NURSE [facility] FP, [facility], OFFICE [address] [place] [id number] 08/08/2005 11:53:47 08/08/2005 14:52:47 [id number] FP TREATMENT NURSE [facility] FP, [facility], OFFICE [address] [place] [id number] 08/11/2005 10:19:48 08/11/2005 15:05:14 [id number] FP TREATMENT NURSE [facility] FP, [facility], OFFICE [address] [place] [id number] 08/18/2005 10:57:06 08/18/2005 15:15:34 [id number] FP TREATMENT NURSE [facility] FP, [facility], OFFICE [address] [place] [id number] 08/25/2005 11:48:03 08/25/2005 17:40:40 [id number] FP TREATMENT NURSE [facility] FP, [facility], OFFICE [address] [place] [id number] 09/17/2005 11:31:19 09/17/2005 15:17:53 [id number] Gricelda Layne MD FP, [facility], OFFICE [address] [place] [id number] 10/09/2005 16:05:18 10/10/2005 16:24:20 [id number] FP TREATMENT NURSE [facility] FP, [facility], OFFICE [address] [place] [id number] 10/20/2005 09:54:51 10/20/2005 17:30:28 [id number] FP TREATMENT NURSE [facility] FP, [facility], OFFICE [address] [place] [id number] 11/17/2005 10:54:13 11/17/2005 17:50:24 [id number] [facility] - [facility] [address] [place] [id number] 11/28/2005 07:30:03 11/28/2005 08:43:26 [id number] FP TREATMENT NURSE [facility], [facility], OFFICE [address] [place] [id number] 12/01/2005 10:50:57 05/17/2008 02:02:29 [id number] [facility] - [address] [place] [id number] 12/01/2005 11:06:46 12/01/2005 11:07:08 [id number] FP TREATMENT NURSE [facility], [facility], OFFICE [address] [place] [id number] 12/02/2005 09:40:49 12/02/2005 12:24:54 [id number] MD RODGER Raza, [facility], OFFICE [address] [place] [id number] 12/05/2005 10:52:16 12/08/2005 09:32:36 [id number] FP TREATMENT NURSE [facility], [facility], OFFICE [address] [place] [id number] 12/10/2005 14:20:32 12/10/2005 17:21:31 [id number] FP TREATMENT NURSE [facility], [facility], OFFICE [address] [place] [id number] 12/12/2005 10:12:02 12/12/2005 13:55:19 [id number] [facility] - [address] [place] [id number] 12/15/2005 07:56:58 12/15/2005 10:52:40 [id number] [facility] - [address] [place] [id number] 12/19/2005 09:58:38 12/19/2005 09:58:49 Health Concerns Section Related Observation LastModified by Organization Detai ls LastModified Time None Recorded Concern Status LastModified by Organization Details LastModified Time None Recorded Advance Directives Directive None Recorded Payers Insurance Date Sequence Insurance Name Policy Number Policy Arce Covered Member ID Arce Member ID Guarantor Name 03/09/2006 1 [employer] GALICIA - MEDICARE-[address] SKILLED NURSING BOARD (MEDICARE) Mary Jane Carpenter [id number] 03/09/2006 2 [facility]IC[facility] SUPPLEMENT) Mary Jane Carpenter [id number] 11/16/2003 1 *SELF PAY* 03/09/2006 1 [facility] CLAIM[facility] [id number] Mary Jane Falcongregor [id number] OBGyn Episode No OBEpisode recorded.
== END 2024-11-22 12:57 | disposition home or self-care (01) ==
LOC: HO.ACS 12:42
PROVIDERS: PCP Internal Medicine; Visit Provider Internal Medicine Medical Oncology
DX: Z79.01 Long term (current) use of anticoagulants (principal)

== ENCOUNTER → 2024-11-22 12:42 | Outpatient (BNVA) | payer MEDICARE, SELFPAY | PROVIDERS: PCP Internal Medicine; Visit Provider Internal Medicine Medical Oncology | DX: Z51.81 Encounter for therapeutic drug level monitoring (principal); Z79.01 Long term (current) use of anticoagulants | CPT/HCPCS: 85610; 99211 ==

== ENCOUNTER 2024-11-28 13:24 | Outpatient (AMB) | payer MEDICARE, SELFPAY ==
[2024-11-28 13:36] LABS: Prothrombin Time Whole Bld POC 44.8 sec (11.1-13.5); ~PT, ~INR - Anti Coag Clinic 3.7 (0.9-1.1)
--- OUTSIDE RECORDS SUMMARY | 2024-11-28 13:40 | XMS_ITS | Clinical Summary ---
Author Organization [facility] Address [address] [place] [address] Phone Care Team Providers Care Endoscopy Technican Name Role Phone Unavailable Primary Care Provider [...]
--- NOTE | 2024-11-28 13:42 | MHC.OFFVISCO ---
Intake Intake Visit Reasons: Anticoagulation Allergies shrimp (SHRIMP) Allergy (Mild, Verified 11/28/24 13:25) HIVES diltiazem Adverse Reaction (Severe, Uncoded 11/28/24 13:25) feet pain, swelling Medication List - Last Reconciled 11/28/24 by Lubna Layne RN ammonium lactate 12% 1 appl topical BID atorvastatin 40 mg PO DAILY betamethasone dipropionate 0.05% appl topical DAILY blood sugar diagnostic (Accu-Chek Guide test strips) As directed 2 times per day blood-glucose meter TEST 2 TIMES DAILY blood-glucose meter (Accu-Chek Guide Glucose Meter) As directed cholecalciferol (vitamin D3) 1,000 units PO DAILY cyanocobalamin (vitamin B-12) 1,000 mcg PO DAILY esomeprazole magnesium (Nexium) 20 mg PO DAILY furosemide 40 mg PO BID glipizide 5 mg PO DAILY hydrocortisone 1% (Anti-Itch (hydrocortisone)) 1 appl topical BID PRN 2 weeks lancets (Accu-Chek Softclix Lancets) Use 1 Lancet once a day lancing device ACCU-CHECK DARLINE DEVICE lancing device (Adjustable Lancing Device) As directed lisinopril 40 mg PO DAILY 90 days phenytoin sodium extended 200 mg (2 x 100 mg) PO BID 90 days terazosin 1 mg PO BEDTIME 30 days tizanidine 4 mg PO Q8H PRN vitamins A,C,X-jcqk-saynkk (PreserVision AREDS) PO BID warfarin 5 mg See Protocol PO DAILY Nursing Note INR: 3.7 OUT OF therapeutic range- pt states she has been feeling unusually tired Medications and supplements reviewed * Has been eating foods that can raise the INR *Started supplement Neuriva for brain health and memory x 1 week - will decrease to mwf due to possible warfarin interactions, pt enc to use caution due to her seizure meds Denies any signs and symptoms of bleeding or bruising or clotting. Bleeding, bruising, clotting discussed Nutritional guidance given- increase greens just a little Dose: 5mg daily F/U INR: 1 week Patient verbalizes understanding of instructions given Anti-Coag Initial Assessment Social Hx Patient Tobacco Use Status: Never used Tobacco Tobacco use type: Cigarette alcohol intake: never Alcohol intake frequency: holidays/special occasions only Coding Level of Care Code Est Patient Level 1 Diagnoses Current use of anticoagulant therapy Z79.01 Results AMB INR Fingerstick AMB INR Fingerstick 3.7 Last Edit by Lubna Layne RN on 11/28/24 13:35 MANUAL ENTRY Assessment & Plan Assessment & Plan (1) Current use of anticoagulant therapy: Code(s): Z79.01 - retirement (current) use of 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 Medications: New [Neuriva brain health supplent] orally m w f;
== END 2024-11-28 17:21 | disposition home or self-care (01) ==
LOC: HO.ACS 13:24
PROVIDERS: PCP Internal Medicine; Visit Provider Internal Medicine Medical Oncology
DX: Z79.01 Long term (current) use of anticoagulants (principal)

== ENCOUNTER → 2024-11-28 13:24 | Outpatient (BNVA) | payer MEDICARE, SELFPAY | PROVIDERS: PCP Internal Medicine; Visit Provider Internal Medicine Medical Oncology | DX: Z51.81 Encounter for therapeutic drug level monitoring (principal); Z79.01 Long term (current) use of anticoagulants | CPT/HCPCS: 85610; 99211 ==

== ENCOUNTER 2024-11-30 09:13 | Outpatient (AMB) | payer OTHER, MEDICAID, SELFPAY ==
--- NOTE | 2024-11-30 09:28 | HO.NEPHOV ---
Vital Signs 11/30/24 09:30 Height 5 ft 1 in Weight 230 lb BMI 43.5 BP 140/70 H Blood Pressure Location Lt brachial Position Sitting Pulse 75 Pulse Source Pulse Oximeter Pulse Oximetry (%) 97 Oxygen Delivery Method Room Air Intake Visit Reasons: 3 MO [facility] [place] Operator Insulation Required: No Accompanied by: Self / Same As Patient Allergies shrimp (SHRIMP) Allergy (Mild, Verified 11/30/24 09:30) HIVES diltiazem Adverse Reaction (Severe, Uncoded 11/28/24 13:25) feet pain, swelling Medication List - Last Reconciled 11/30/24 by Monty Barriga MD ammonium lactate 12% 1 appl topical BID atorvastatin 40 mg PO DAILY betamethasone dipropionate 0.05% appl topical DAILY blood sugar diagnostic (Accu-Chek Guide test strips) As directed 2 times per day blood-glucose meter TEST 2 TIMES DAILY blood-glucose meter (Accu-Chek Guide Glucose Meter) As directed cholecalciferol (vitamin D3) 1,000 units PO DAILY cyanocobalamin (vitamin B-12) 1,000 mcg PO DAILY esomeprazole magnesium (Nexium) 20 mg PO DAILY furosemide 40 mg PO BID furosemide (Lasix) 80 mg PO BID 90 days glipizide 5 mg PO DAILY hydrocortisone 1% (Anti-Itch (hydrocortisone)) 1 appl topical BID PRN 2 weeks lancets (Accu-Chek Softclix Lancets) Use 1 Lancet once a day lancing device ACCU-CHECK DARLINE DEVICE lancing device (Adjustable Lancing Device) As directed [Neuriva brain health supplent orally m w f; ] phenytoin sodium extended 200 mg (2 x 100 mg) PO BID 90 days terazosin 1 mg PO BEDTIME 30 days tizanidine 4 mg PO Q8H PRN vitamins A,C,V-bpyy-ilppvu (PreserVision AREDS) PO BID warfarin 5 mg See Protocol PO DAILY HPI Comments Details: 78-year-old lady with past medical history of hypertension, hyperlipidemia, diabetes mellitus, factor 5 Leiden mutation he is referred from the internal medicine clinic for renal cyst found on renal ultrasound 2.5 and 2.3 cm in size simple cyst of the right kidney. She had a CT scan done 8 months ago, and the kidneys were reported to be normal. Patient used to live in [place], moved here after has been step to take care of her brother. Hypertension: on lisinopril 40mg and Lasix increased to 40mg BID last visit Still has swelling of bilateral lower extremities and her blood pressures are slightly on the higher side. Increased lasix to 40mg BID last visit but still has swelling as she has been drinking lot. [facility] Medical History Morbid obesity with BMI of 40.0-44.9, adult Epilepsy GERD without esophagitis Vitamin D deficiency Mixed hyperlipidemia Essential hypertension Diabetes mellitus PAF (paroxysmal atrial fibrillation) Atrial fibrillation Factor V Leiden DVT (deep venous thrombosis) Hyperlipidemia Hypertension Diabetes mellitus with coincident hypertension Surgical History History of lumpectomy of right breast History of appendectomy History of cholecystectomy Family History Father Asthma Mother Diabetes Hypertension Colon cancer Other Substance use disorder Social History Household Members: None Housing: Apartment Do you presently have visiting nurse or other home services: No Alcohol intake: never Patient Tobacco Use Status: Never used Tobacco Tobacco use type: Cigarette e-Cigarette/Vaping Use: Never Used Second Hand Smoke Exposure: No Advance Directives Date on File: 02/03/23 service: No Current occupational status: employed Cognitive needs: No Hearing needs: No Vision needs: No Review of Systems Const Details: Const : no body aches, no chills, no excessive sweating and no fatigue Eyes: no blurry vision and no change in vision ENT: no bleeding gums and no change in voice, no dizziness Card: no chest pain, no shortness of breath, no orthopnea, no PND Resp: no cough, no excessive phlegm production, no SOB GI: no abdominal pain and no nausea, no vomiting : no hematuria, no urinary frequency and no difficulty voiding Musc: no abnormal gait, no bone pain Neuro: no abnormal movements, no weakness, denies, dizziness Denies abnormal gait and no behavioral changes Psych: no behavioral changes and no change in appetite Endo: no change in body appearance, no cold intolerance, no excessive sweating and no fatigue Physical Exam Vital Signs: Last Vital Signs Pulse 75 11/30/24 09:30 BP 140/70 H 11/30/24 09:30 Pulse Ox 97 11/30/24 09:30 Oxygen Delivery Method Room Air 11/30/24 09:30 BMI result Body Mass Index 43.5 General: pleasant, comfortable, happy and wonderful person to talk to Nutritional Appearance: well nourished and overweight Eyes: normal position, no icterus Neck: No lymphadenopathy, no thyromegaly Resp: bilateral air entry equal, no added sounds present Cardio: normal S1, S2 heard, no murmur heard, ++ edema, no lung base crackles GI: soft, nontender, no guarding, no hepatosplenomegaly : bladder normal to inspection, bladder normal to palpation, no renal angle tenderness Skin: no rashes or lesions noted and elasticity normal Neuro: oriented to person, oriented to place, oriented to time and moves all extremities Results Reviewed Nephrology Results: Renal US 08/12/24 Assessment & Plan Assessment & Plan (1) Hypertension: Code(s): I10 - Essential (primary) hypertension Category: Medical Qualifiers: Hypertension type: primary hypertension Qualified Code(s): I10 - Essential (primary) hypertension (2) 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 of other clotting factors Category: Medical (3) Renal cyst: Code(s): N28.1 - Cyst of kidney, acquired Category: Medical Plan Renal cyst: Renal cysts are simple, 2.3 and 2.5 cm seen on ultrasound We will repeat an imaging in 2025 Hypertension: On lisinopril 40 mg switch to losartan 100mg with HCTZ 25mg. We will increase the Lasix to 80 mg b.i.d. asked her to check her weight everyday and adjust lasix based on daily weight. Sent her a new prescription for 80mg BID. ASked her to cut down her fluid intake so she can loose some weight TTE in 01/2023 showed normal LV systolic function, moderate septal asymmertric hypertrophy Advised to reduce weight, she has appointment at weight management clinic TSH 3.10, Hb A1c 5.9 Toe pain: uric acid levels normal 5.5 Factor V deficiency: on warfarin, INR okay will see her back in 3 months Orders: Orders Basic Metabolic Panel 3 Months D68.2 - Hereditary deficiency of other clotting factors, I10 - Essential (primary) hypertension, N28.1 - Cyst of kidney, acquired Microalbumin, Random (w Creat) 3 Months D68.2 - Hereditary deficiency of other clotting factors, I10 - Essential (primary) hypertension, N28.1 - Cyst of kidney, acquired UA and rflx microscopic 3 Months D68.2 - Hereditary deficiency of other clotting factors, I10 - Essential (primary) hypertension, N28.1 - Cyst of kidney, acquired Uric Acid 3 Months D68.2 - Hereditary deficiency of other clotting factors, I10 - Essential (primary) hypertension, N28.1 - Cyst of kidney, acquired Medications: New losartan-hydrochlorothiazide 100-25 mg 1 tab PO DAILY 90 tabs 3RF furosemide (Lasix) 80 mg PO BID 180 tabs 3RF 90 days Coding Level of Care Code Est Pt Level 4 (38059) Diagnoses Primary hypertension I10 Hypertension type: primary hypertension Factor V deficiency D68.2 Renal cyst N28.1
[2024-11-30 09:30] VITALS: BP 140/70; PULSE 75; O2SAT 97; BMI 43.5
--- OUTSIDE RECORDS SUMMARY | 2024-11-30 09:33 | XMS_ITS | Clinical Summary ---
Author Organization [facility] Address [address] [place] [address] Phone Care Team Providers Care Authorizer Name Role Phone Unavailable Primary Care Provider [...]
== END 2024-11-30 10:01 | disposition home or self-care (01) ==
LOC: HO.HKA 09:14
PROVIDERS: PCP Internal Medicine; Visit Provider Internal Medicine Critical Care Medicine
DX: I10 Essential (primary) hypertension (principal); D68.2 Hereditary deficiency of other clotting factors; N28.1 Cyst of kidney, acquired
CPT/HCPCS: 99214

== ENCOUNTER 2024-12-06 13:23 | Outpatient (AMB) | payer OTHER, MEDICAID, SELFPAY ==
[2024-12-06 13:34] LABS: Prothrombin Time Whole Bld POC 20.6 sec (11.1-13.5); ~PT, ~INR - Anti Coag Clinic 1.7 (0.9-1.1)
--- NOTE | 2024-12-06 13:45 | MHC.OFFVISCO ---
Intake Intake Visit Reasons: Anticoagulation Allergies shrimp (SHRIMP) Allergy (Mild, Verified 11/30/24 09:30) HIVES diltiazem Adverse Reaction (Severe, Uncoded 11/28/24 13:25) feet pain, swelling Medication List - Last Reconciled 12/06/24 by Clover Granados, RN ammonium lactate 12% 1 appl topical BID atorvastatin 40 mg PO DAILY betamethasone dipropionate 0.05% appl topical DAILY blood sugar diagnostic (Accu-Chek Guide test strips) As directed 2 times per day blood-glucose meter TEST 2 TIMES DAILY blood-glucose meter (Accu-Chek Guide Glucose Meter) As directed cholecalciferol (vitamin D3) 1,000 units PO DAILY cyanocobalamin (vitamin B-12) 1,000 mcg PO DAILY esomeprazole magnesium (Nexium) 20 mg PO DAILY furosemide 40 mg PO BID furosemide (Lasix) 80 mg PO BID 90 days glipizide 5 mg PO DAILY hydrocortisone 1% (Anti-Itch (hydrocortisone)) 1 appl topical BID PRN 2 weeks lancets (Accu-Chek Softclix Lancets) Use 1 Lancet once a day lancing device ACCU-CHECK DARLINE DEVICE lancing device (Adjustable Lancing Device) As directed losartan-hydrochlorothiazide 100-25 mg 1 tab PO DAILY [Neuriva brain health supplent orally m w ; ] phenytoin sodium extended 200 mg (2 x 100 mg) PO BID 90 days terazosin 1 mg PO BEDTIME 30 days tizanidine 4 mg PO Q8H PRN vitamins A,C,X-ekwl-xpysia (PreserVision AREDS) PO BID warfarin 5 mg See Protocol PO DAILY Nursing Note INR: 1.7 out of therapeutic range of 2-3. Pt denies missed dose. States she had spinach twice last week when her INR was 3.7 Medications and supplements reviewed Patient status: feels well Medications or supplements: lasix increased per Administrative Assistant Diet: pt trying to eat healthier Denies any signs and symptoms of bleeding or clotting or unusual bruising Bleeding, bruising, clotting discussed Nutritional guidance given: to avoid greens today Dose: today's dose increased to 7.5mg then 5mg daily F/U INR Date: 1 week?? Patient verbalizing understanding of instructions with read back given. Anti-Coag Initial Assessment Social Hx Patient Tobacco Use Status: Never used Tobacco Tobacco use type: Cigarette alcohol intake: never Alcohol intake frequency: holidays/special occasions only Coding Level of Care Code Est Patient Level 1 Diagnoses Current use of anticoagulant therapy Z79.01 Assessment & Plan Assessment & Plan (1) Current use of anticoagulant therapy: Code(s): Z79.01 - custodial (current) use of 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 Medications: Discontinued furosemide Discontinued Reason: Patient no longer taking 40 mg PO BID 180 tabs 3RF
--- OUTSIDE RECORDS SUMMARY | 2024-12-06 14:10 | XMS_ITS | Clinical Summary ---
Author Organization [facility] Address [address] [place] [address] Phone Care Team Providers Care Clinical Informatics Director Name Role Phone Unavailable Primary Care Provider [...] complete this topic Insurance [employer] [place] [address] MEDICAID - [place]
== END 2024-12-06 13:49 | disposition home or self-care (01) ==
LOC: HO.ACS 13:23
PROVIDERS: PCP Internal Medicine; Visit Provider Internal Medicine Medical Oncology
DX: Z79.01 Long term (current) use of anticoagulants (principal)

== ENCOUNTER → 2024-12-06 13:23 | Outpatient (BNVA) | payer OTHER, MEDICAID, SELFPAY | PROVIDERS: PCP Internal Medicine; Visit Provider Internal Medicine Medical Oncology | DX: I82.402 Acute embolism and thrombosis of unspecified deep veins of left lower extremity (principal); Z51.81 Encounter for therapeutic drug level monitoring; Z79.01 Long term (current) use of anticoagulants | CPT/HCPCS: 85610; 99211 ==

== ENCOUNTER 2024-12-12 | Outpatient (REF) | payer MEDICARE, SELFPAY ==
--- OUTSIDE RECORDS SUMMARY | 2024-12-19 09:07 | XMS_ITS | Clinical Summary ---
Author Organization [facility] Address [address] [place] [address] Phone Care Team Providers Care Manufacturing Manager Name Role Phone Unavailable Primary Care [...]
== END 2024-12-12 00:01 | disposition home or self-care (01) ==
LOC: CF
PROVIDERS: Visit Provider Internal Medicine Medical Oncology
DX: Z13.89 Encounter for screening for other disorder (principal)
CPT/HCPCS: 36415; 80053; 84550; 85025; 85379; 85610

== ENCOUNTER 2024-12-12 13:01 | Outpatient (AMB) | payer OTHER, MEDICAID, SELFPAY ==
[2024-12-12 13:27] LABS: Prothrombin Time Whole Bld POC 34.6 sec (11.1-13.5); ~PT, ~INR - Anti Coag Clinic 2.9 (0.9-1.1)
--- NOTE | 2024-12-12 13:53 | MHC.OFFVISCO ---
Intake Intake Visit Reasons: Anticoagulation Allergies shrimp (SHRIMP) Allergy (Mild, Verified 12/12/24 13:20) HIVES diltiazem Adverse Reaction (Severe, Uncoded 12/12/24 13:20) feet pain, swelling Medication List - Last Reconciled 12/12/24 by Bhakti Baez RN ammonium lactate 12% 1 appl topical BID atorvastatin 40 mg PO DAILY betamethasone dipropionate 0.05% appl topical DAILY blood sugar diagnostic (Accu-Chek Guide test strips) As directed 2 times per day blood-glucose meter TEST 2 TIMES DAILY blood-glucose meter (Accu-Chek Guide Glucose Meter) As directed cholecalciferol (vitamin D3) 1,000 units PO DAILY cyanocobalamin (vitamin B-12) 1,000 mcg PO DAILY esomeprazole magnesium (Nexium) 20 mg PO DAILY furosemide (Lasix) 80 mg PO BID 90 days glipizide 5 mg PO DAILY hydrocortisone 1% (Anti-Itch (hydrocortisone)) 1 appl topical BID PRN 2 weeks lancets (Accu-Chek Softclix Lancets) Use 1 Lancet once a day lancing device ACCU-CHECK DARLINE DEVICE lancing device (Adjustable Lancing Device) As directed losartan-hydrochlorothiazide 100-25 mg 1 tab PO DAILY [Neuriva brain health supplent orally m w f; ] phenytoin sodium extended 200 mg (2 x 100 mg) PO BID 90 days terazosin 1 mg PO BEDTIME 30 days tizanidine 4 mg PO Q8H PRN vitamins A,C,N-avyw-itxeup (PreserVision AREDS) PO BID warfarin 5 mg See Protocol PO DAILY Nursing Note INR: 2.9- in therapeutic range of 2-3 Medications and supplements reviewed- pt now taking losartan/htcz, furosemide increased to 80mg bid- both no interaction with micromedex less lower extrem edema per pt No changes in health, diet or supplements, Denies any signs and symptoms of bleeding or bruising or clotting. Bleeding, bruising, clotting discussed Nutritional guidance given Dose: 5mg x 7 F/U INR: pt req 2 weeks Patient verbalizes understanding of instructions given Anti-Coag Initial Assessment Social Hx Patient Tobacco Use Status: Never used Tobacco Tobacco use type: Cigarette alcohol intake: never Alcohol intake frequency: holidays/special occasions only Coding Level of Care Code Est Patient Level 1 Diagnoses Current use of anticoagulant therapy Z79.01 Assessment & Plan Assessment & Plan (1) Current use of anticoagulant therapy: Code(s): Z79.01 - alf (current) use of 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
--- OUTSIDE RECORDS SUMMARY | 2024-12-12 13:54 | XMS_ITS | Clinical Summary ---
Author Organization [facility] Address [address] [place] [address] Phone Care Team Providers Care Denture Processor Name Role Phone Unavailable Primary Care Provider [...]
== END 2024-12-12 13:31 | disposition home or self-care (01) ==
LOC: HO.ACS 13:01
PROVIDERS: PCP Internal Medicine; Visit Provider Internal Medicine Medical Oncology
DX: Z79.01 Long term (current) use of anticoagulants (principal)

== ENCOUNTER → 2024-12-12 13:01 | Outpatient (BNVA) | payer OTHER, MEDICAID, SELFPAY | PROVIDERS: PCP Internal Medicine; Visit Provider Internal Medicine Medical Oncology | DX: Z86.718 Personal history of other venous thrombosis and embolism (principal); Z79.01 Long term (current) use of anticoagulants; Z51.81 Encounter for therapeutic drug level monitoring | CPT/HCPCS: 85610; 99211 ==

== ENCOUNTER → 2024-12-12 13:40 | Outpatient (BNV) | payer MEDICARE, SELFPAY | PROVIDERS: PCP Internal Medicine; Visit Provider Internal Medicine Medical Oncology | DX: Z86.718 Personal history of other venous thrombosis and embolism (principal); Z79.01 Long term (current) use of anticoagulants; I10 Essential (primary) hypertension | CPT/HCPCS: 99204 ==

== ENCOUNTER 2024-12-27 10:24 | Outpatient (AMB) | payer MEDICARE, SELFPAY ==
[2024-12-27 10:45] LABS: Prothrombin Time Whole Bld POC 61.1 sec (11.1-13.5); ~PT, ~INR - Anti Coag Clinic 5.1 (0.9-1.1)
--- NOTE | 2024-12-27 10:57 | MHC.OFFVISCO ---
Intake Intake Visit Reasons: Anticoagulation Allergies shrimp (SHRIMP) Allergy (Mild, Verified 12/27/24 10:39) HIVES diltiazem Adverse Reaction (Severe, Uncoded 12/12/24 14:50) feet pain, swelling Medication List - Last Reconciled 12/27/24 by Celeste Chong, RN ammonium lactate 12% 1 appl topical BID atorvastatin 40 mg PO DAILY betamethasone dipropionate 0.05% 0.05 appl topical DAILY blood sugar diagnostic (Accu-Chek Guide test strips) As directed 2 times per day blood-glucose meter TEST 2 TIMES DAILY blood-glucose meter (Accu-Chek Guide Glucose Meter) As directed cholecalciferol (vitamin D3) 1,000 units PO DAILY cyanocobalamin (vitamin B-12) 1,000 mcg PO DAILY esomeprazole magnesium (Nexium) 20 mg PO DAILY furosemide (Lasix) 80 mg PO BID 90 days glipizide 5 mg PO DAILY hydrocortisone 1% (Anti-Itch (hydrocortisone)) 1 appl topical BID PRN 2 weeks lancets (Accu-Chek Softclix Lancets) Use 1 Lancet once a day lancing device ACCU-CHECK DARLINE DEVICE lancing device (Adjustable Lancing Device) As directed losartan-hydrochlorothiazide 100-25 mg 1 tab PO DAILY [Neuriva brain health supplent orally m w f; ] phenytoin sodium extended 200 mg (2 x 100 mg) PO BID 90 days terazosin 1 mg PO BEDTIME 30 days tizanidine 4 mg PO Q8H PRN vitamins A,C,H-ccon-jycncx (PreserVision AREDS) 159 % PO BID warfarin 5 mg See Protocol PO DAILY Nursing Note ANKLE EDEMA PERSISTS, BUT IMPROVED SINCE THE INCREASE IN LASIX. NO CP,SOB OR SX OF BLEEDING. NO MED CHANGES. HOLD WARFARIN 2 DAYS AND RECHECK HERE ON 12/29/24. IFTIKHAR GOOD UNDERSTANDING OF DOSING INSTR. ([facility])NOTIFIED OF HIGH INR AND PLAN OF CARE AT 11AM. Anti-Coag Initial Assessment Social Hx Patient Tobacco Use Status: Never used Tobacco Tobacco use type: Cigarette alcohol intake: never Alcohol intake frequency: holidays/special occasions only Coding Level of Care Code Est Patient Level 1 Diagnoses Current use of anticoagulant therapy Z79.01 Assessment & Plan Assessment & Plan (1) Current use of anticoagulant therapy: Code(s): Z79.01 - [facility] (current) use of 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
--- OUTSIDE RECORDS SUMMARY | 2024-12-27 11:57 | XMS_ITS | Clinical Summary ---
Author Organization [facility] Address [address] [place] [address] Phone Care Team Providers Care Plow Shaker Name Role Phone Unavailable Primary Care Provider [...] complete this topic Insurance [employer] [place] [address] MEDICAID - [place]
== END 2024-12-27 11:03 | disposition home or self-care (01) ==
LOC: HO.ACS 10:24
PROVIDERS: PCP Internal Medicine; Visit Provider Internal Medicine Medical Oncology
DX: Z79.01 Long term (current) use of anticoagulants (principal)

== ENCOUNTER → 2024-12-27 10:24 | Outpatient (BNVA) | payer MEDICARE, SELFPAY | PROVIDERS: PCP Internal Medicine; Visit Provider Internal Medicine Medical Oncology | DX: Z51.81 Encounter for therapeutic drug level monitoring (principal); Z79.01 Long term (current) use of anticoagulants | CPT/HCPCS: 85610; 99211 ==

== ENCOUNTER 2024-12-29 09:50 | Outpatient (AMB) | payer MEDICARE, SELFPAY ==
--- NOTE | 2024-12-29 09:57 | MHC.OFFVISCO ---
Intake Intake Visit Reasons: Anticoagulation Allergies shrimp (SHRIMP) Allergy (Mild, Verified 12/29/24 09:51) HIVES diltiazem Adverse Reaction (Severe, Uncoded 12/29/24 09:51) feet pain, swelling Medication List - Last Reconciled 12/29/24 by Bhakti Baez, RN ammonium lactate 12% 1 appl topical BID atorvastatin 40 mg PO DAILY betamethasone dipropionate 0.05% 0.05 appl topical DAILY blood sugar diagnostic (Accu-Chek Guide test strips) As directed 2 times per day blood-glucose meter TEST 2 TIMES DAILY blood-glucose meter (Accu-Chek Guide Glucose Meter) As directed cholecalciferol (vitamin D3) 1,000 units PO DAILY cyanocobalamin (vitamin B-12) 1,000 mcg PO DAILY esomeprazole magnesium (Nexium) 20 mg PO DAILY furosemide (Lasix) 80 mg PO BID 90 days glipizide 5 mg PO DAILY hydrocortisone 1% (Anti-Itch (hydrocortisone)) 1 appl topical BID PRN 2 weeks lancets (Accu-Chek Softclix Lancets) Use 1 Lancet once a day lancing device ACCU-CHECK DARLINE DEVICE lancing device (Adjustable Lancing Device) As directed losartan-hydrochlorothiazide 100-25 mg 1 tab PO DAILY [Neuriva brain health supplent orally m w f; ] phenytoin sodium extended 200 mg (2 x 100 mg) PO BID 90 days terazosin 1 mg PO BEDTIME 30 days tizanidine 4 mg PO Q8H PRN vitamins A,C,N-pmwt-trdvpv (PreserVision AREDS) 159 % PO BID warfarin 5 mg See Protocol PO DAILY Nursing Note INR 1.6-? out of therapeutic range of 2-3 Medications and supplements reviewed Patient status: pt c.o bilat feet/toe pain, prev poc inr on 12/27/24 was 5.1 pt held warfarin tu and wed, but took 5mg at 2am this morning Medications or supplements: recent increase of lasix to 80mg bid, losartan/hctz Diet: same Denies any signs and symptoms of bleeding or clotting or unusual bruising Bleeding, bruising, clotting discussed - pt aware risk of clotting Nutritional guidance given: no greens for 2-3 days, eat reds to raise Dose: take 7.5mg total today then cont 5mg x7 F/U INR Date : thu01/02/25?? Patient verbalizing understanding of instructions given. Anti-Coag Initial Assessment Social Hx Patient Tobacco Use Status: Never used Tobacco Tobacco use type: Cigarette alcohol intake: never Alcohol intake frequency: holidays/special occasions only Coding Level of Care Code Est Patient Level 1 Diagnoses Current use of anticoagulant therapy Z79.01 Assessment & Plan Assessment & Plan (1) Current use of anticoagulant therapy: Code(s): Z79.01 - long term (current) use of 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
[2024-12-29 09:58] LABS: Prothrombin Time Whole Bld POC 19.4 sec (11.1-13.5); ~PT, ~INR - Anti Coag Clinic 1.6 (0.9-1.1)
--- OUTSIDE RECORDS SUMMARY | 2024-12-29 10:47 | XMS_ITS | Clinical Summary ---
Author Organization [facility] Address [address] [place] [address] Phone Care Team Providers Care Biology Specimen Technician Name Role Phone Unavailable Primary Care Provider [...]
== END 2024-12-29 10:12 | disposition home or self-care (01) ==
LOC: HO.ACS 09:50
PROVIDERS: PCP Internal Medicine; Visit Provider Internal Medicine Medical Oncology
DX: Z79.01 Long term (current) use of anticoagulants (principal)

== ENCOUNTER → 2024-12-29 09:50 | Outpatient (BNVA) | payer MEDICARE, SELFPAY | PROVIDERS: PCP Internal Medicine; Visit Provider Internal Medicine Medical Oncology | DX: Z51.81 Encounter for therapeutic drug level monitoring (principal); Z79.01 Long term (current) use of anticoagulants | CPT/HCPCS: 85610; 99211 ==

== ENCOUNTER 2025-01-02 13:15 | Outpatient (AMB) | payer MEDICARE, SELFPAY ==
[2025-01-02 13:31] LABS: Prothrombin Time Whole Bld POC 31.4 sec (11.1-13.5); ~PT, ~INR - Anti Coag Clinic 2.6 (0.9-1.1)
--- NOTE | 2025-01-02 13:41 | MHC.OFFVISCO ---
Intake Intake Visit Reasons: Anticoagulation Allergies shrimp (SHRIMP) Allergy (Mild, Verified 01/02/25 13:20) HIVES diltiazem Adverse Reaction (Severe, Uncoded 01/02/25 13:20) feet pain, swelling Medication List - Last Reconciled 01/02/25 by Lubna Layne RN ammonium lactate 12% 1 appl topical BID atorvastatin 40 mg PO DAILY betamethasone dipropionate 0.05% 0.05 appl topical DAILY blood sugar diagnostic (Accu-Chek Guide test strips) As directed 2 times per day blood-glucose meter TEST 2 TIMES DAILY blood-glucose meter (Accu-Chek Guide Glucose Meter) As directed cholecalciferol (vitamin D3) 1,000 units PO DAILY cyanocobalamin (vitamin B-12) 1,000 mcg PO DAILY esomeprazole magnesium (Nexium) 20 mg PO DAILY furosemide (Lasix) 80 mg PO BID 90 days glipizide 5 mg PO DAILY hydrocortisone 1% (Anti-Itch (hydrocortisone)) 1 appl topical BID PRN 2 weeks lancets (Accu-Chek Softclix Lancets) Use 1 Lancet once a day lancing device ACCU-CHECK DARLINE DEVICE lancing device (Adjustable Lancing Device) As directed losartan-hydrochlorothiazide 100-25 mg 1 tab PO DAILY [Neuriva brain health supplent orally m w f; ] phenytoin sodium extended 200 mg (2 x 100 mg) PO BID 90 days terazosin 1 mg PO BEDTIME 30 days tizanidine 4 mg PO Q8H PRN vitamins A,C,L-qcho-jvqgxg (PreserVision AREDS) 159 % PO BID warfarin 5 mg See Protocol PO DAILY Nursing Note INR: 2.6 in therapeutic range Medications and supplements reviewed- furosemide increased 2 weeks ago No changes in health, diet, medications, or supplements, Denies any signs and symptoms of bleeding or bruising or clotting. Bleeding, bruising, clotting discussed Nutritional guidance given Dose: 2.5mg x 1 day/ 5mg x 6 days F/U INR: weekly Patient verbalizes understanding of instructions given Anti-Coag Initial Assessment Social Hx Patient Tobacco Use Status: Never used Tobacco Tobacco use type: Cigarette alcohol intake: never Alcohol intake frequency: holidays/special occasions only Coding Level of Care Code Est Patient Level 1 Diagnoses Current use of anticoagulant therapy Z79.01 Results AMB INR Fingerstick AMB INR Fingerstick 2.6 Last Edit by Lubna Layne RN on 01/02/25 13:33 manual entry Assessment & Plan Assessment & Plan (1) Current use of anticoagulant therapy: Code(s): Z79.01 - intermediate (current) use of 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
--- OUTSIDE RECORDS SUMMARY | 2025-01-02 15:35 | XMS_ITS | Clinical Summary ---
Author Organization [facility] Address [address] [place] [address] Phone Care Team Providers Care Assembler Mechanical Ordnance Name Role Phone Unavailable Primary Care Provider [...]
== END 2025-01-02 13:46 | disposition home or self-care (01) ==
LOC: HO.ACS 13:15
PROVIDERS: PCP Internal Medicine; Visit Provider Internal Medicine Medical Oncology
DX: Z79.01 Long term (current) use of anticoagulants (principal)

== ENCOUNTER → 2025-01-02 13:15 | Outpatient (BNVA) | payer MEDICARE, SELFPAY | PROVIDERS: PCP Internal Medicine; Visit Provider Internal Medicine Medical Oncology | DX: Z51.81 Encounter for therapeutic drug level monitoring (principal); Z79.01 Long term (current) use of anticoagulants | CPT/HCPCS: 85610; 99211 ==

== ENCOUNTER 2025-01-09 13:08 | Outpatient (AMB) | payer MEDICARE, SELFPAY ==
[2025-01-09 13:16] LABS: Prothrombin Time Whole Bld POC 27.7 sec (11.1-13.5); ~PT, ~INR - Anti Coag Clinic 2.3 (0.9-1.1)
--- NOTE | 2025-01-09 13:24 | MHC.OFFVISCO ---
Intake Intake Visit Reasons: Anticoagulation Allergies shrimp (SHRIMP) Allergy (Mild, Verified 01/09/25 13:05) HIVES diltiazem Adverse Reaction (Severe, Uncoded 01/09/25 13:05) feet pain, swelling Medication List - Last Reconciled 01/09/25 by Clover Granados, RN ammonium lactate 12% 1 appl topical BID atorvastatin 40 mg PO DAILY betamethasone dipropionate 0.05% 0.05 appl topical DAILY blood sugar diagnostic (Accu-Chek Guide test strips) As directed 2 times per day blood-glucose meter TEST 2 TIMES DAILY blood-glucose meter (Accu-Chek Guide Glucose Meter) As directed cholecalciferol (vitamin D3) 1,000 units PO DAILY cyanocobalamin (vitamin B-12) 1,000 mcg PO DAILY esomeprazole magnesium (Nexium) 20 mg PO DAILY furosemide (Lasix) 80 mg PO BID 90 days glipizide 5 mg PO DAILY hydrocortisone 1% (Anti-Itch (hydrocortisone)) 1 appl topical BID PRN 2 weeks lancets (Accu-Chek Softclix Lancets) Use 1 Lancet once a day lancing device ACCU-CHECK DARLINE DEVICE lancing device (Adjustable Lancing Device) As directed losartan-hydrochlorothiazide 100-25 mg 1 tab PO DAILY [Neuriva brain health supplent orally m w f; ] phenytoin sodium extended 200 mg (2 x 100 mg) PO BID 90 days terazosin 1 mg PO BEDTIME 30 days tizanidine 4 mg PO Q8H PRN vitamins A,C,A-zsuc-ywzifz (PreserVision AREDS) 159 % PO BID warfarin 5 mg See Protocol PO DAILY Nursing Note INR: 2.3 in therapeutic range of 2-3 Medications and supplements reviewed No changes in health, diet, medications, or supplements, Denies any signs and symptoms of bleeding or bruising or clotting. Bleeding, bruising, clotting discussed Nutritional guidance given Dose: 5mg X 6 days and 2.5mg X 1 day (Sat) F/U INR: 1 week Patient verbalizes understanding of instructions given Anti-Coag Initial Assessment Social Hx Patient Tobacco Use Status: Never used Tobacco Tobacco use type: Cigarette alcohol intake: never Alcohol intake frequency: holidays/special occasions only Coding Level of Care Code Est Patient Level 1 Diagnoses Current use of anticoagulant therapy Z79.01 Results AMB INR Fingerstick AMB INR Fingerstick 2.3 Last Edit by Clover Granados RN on 01/09/25 13:19 interface delay Assessment & Plan Assessment & Plan (1) Current use of anticoagulant therapy: Code(s): Z79.01 - jail (current) use of 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
--- OUTSIDE RECORDS SUMMARY | 2025-01-09 18:14 | XMS_ITS | Clinical Summary ---
Author Organization [facility] Address [address] [place] [address] Phone Care Team Providers Care Tube Handler Name Role Phone Unavailable Primary Care Provider [...] nts (1 - 1-dose 75+ series) 2021 Depression Screening 04/27/2024 Falls Risk Assessment 05/26/2024 Hepatitis C Screening 05/26/2024 Medicare Annual Wellness Visit 05/26/2024 Osteoporosis Screening (Bone Density Screening) 05/26/2024 Social Influencers of Health Screening 05/26/2024 COVID-19 Vaccine ( - 2023-2 5 season) 2024 Influenza Vaccine (#1) 2024 HIB Vaccines Aged [...]
== END 2025-01-09 13:36 | disposition home or self-care (01) ==
LOC: HO.ACS 13:08
PROVIDERS: PCP Internal Medicine; Visit Provider Internal Medicine Medical Oncology
DX: Z79.01 Long term (current) use of anticoagulants (principal)

== ENCOUNTER → 2025-01-09 13:08 | Outpatient (BNVA) | payer MEDICARE, SELFPAY | PROVIDERS: PCP Internal Medicine; Visit Provider Internal Medicine Medical Oncology | DX: Z51.81 Encounter for therapeutic drug level monitoring (principal); Z79.01 Long term (current) use of anticoagulants | CPT/HCPCS: 85610; 99211 ==

== ENCOUNTER 2025-01-16 13:03 | Outpatient (AMB) | payer MEDICARE, SELFPAY ==
[2025-01-16 13:09] LABS: Prothrombin Time Whole Bld POC 36.8 sec (11.1-13.5); ~PT, ~INR - Anti Coag Clinic 3.1 (0.9-1.1)
--- NOTE | 2025-01-16 13:21 | MHC.OFFVISCO ---
Intake Intake Visit Reasons: Anticoagulation Allergies shrimp (SHRIMP) Allergy (Mild, Verified 01/16/25 13:04) HIVES diltiazem Adverse Reaction (Severe, Uncoded 01/16/25 13:04) feet pain, swelling Medication List - Last Reconciled 01/16/25 by Clover Granados, RN ammonium lactate 12% 1 appl topical BID atorvastatin 40 mg PO DAILY betamethasone dipropionate 0.05% 0.05 appl topical DAILY blood sugar diagnostic (Accu-Chek Guide test strips) As directed 2 times per day blood-glucose meter TEST 2 TIMES DAILY blood-glucose meter (Accu-Chek Guide Glucose Meter) As directed cephalexin 500 mg PO BID 7 days cholecalciferol (vitamin D3) 1,000 units PO DAILY cyanocobalamin (vitamin B-12) 1,000 mcg PO DAILY esomeprazole magnesium (Nexium) 20 mg PO DAILY furosemide (Lasix) 80 mg PO BID 90 days glipizide 5 mg PO DAILY hydrocortisone 1% (Anti-Itch (hydrocortisone)) 1 appl topical BID PRN 2 weeks lancets (Accu-Chek Softclix Lancets) Use 1 Lancet once a day lancing device ACCU-CHECK DARLINE DEVICE lancing device (Adjustable Lancing Device) As directed losartan-hydrochlorothiazide 100-25 mg 1 tab PO DAILY [Neuriva brain health supplent orally m w f; ] phenytoin sodium extended 200 mg (2 x 100 mg) PO BID 90 days terazosin 1 mg PO BEDTIME 30 days tizanidine 4 mg PO Q8H PRN vitamins A,C,B-dhxo-npjrgj (PreserVision AREDS) 159 % PO BID warfarin 5 mg See Protocol PO DAILY Nursing Note INR: 3.1 out of therapeutic range of 2-3 Taking Cephalexin for cellulitis of lower leg which can raise the INR. Pt states she tried to increase her greens intake over the past week. Medications and supplements reviewed no other changes Patient status: feels well Medications or supplements: no changes Diet: as above Denies any signs and symptoms of bleeding or clotting or unusual bruising Bleeding, bruising, clotting discussed Nutritional guidance given: to increase her greens again this week Dose: pt took today's dose of 5mg already so will decrease tomorrow's dose of 5mg to 2.5mg then 5mg daily except Sat, only 2.5mg. F/U INR Date: 1 week?? Patient verbalizing understanding of instructions given. Anti-Coag Initial Assessment Social Hx Patient Tobacco Use Status: Never used Tobacco Tobacco use type: Cigarette alcohol intake: never Alcohol intake frequency: holidays/special occasions only Coding Level of Care Code Est Patient Level 1 Diagnoses Current use of anticoagulant therapy Z79.01 Assessment & Plan Assessment & Plan (1) Current use of anticoagulant therapy: Code(s): Z79.01 - technician terminal and repeater (current) use of 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
== END 2025-01-16 13:27 | disposition home or self-care (01) ==
LOC: HO.ACS 13:03
PROVIDERS: PCP Internal Medicine; Visit Provider Internal Medicine Medical Oncology
DX: Z79.01 Long term (current) use of anticoagulants (principal)

== ENCOUNTER → 2025-01-16 13:03 | Outpatient (BNVA) | payer MEDICARE, SELFPAY | PROVIDERS: PCP Internal Medicine; Visit Provider Internal Medicine Medical Oncology | DX: Z51.81 Encounter for therapeutic drug level monitoring (principal); Z79.01 Long term (current) use of anticoagulants | CPT/HCPCS: 85610; 99211 ==

== ENCOUNTER 2025-01-17 08:32 | Outpatient (REF) | payer MEDICARE, SELFPAY ==
[2025-01-17 09:19] LABS: Hematocrit 40.0 % (37.0-47.0); Hemoglobin 13.4 g/dl (12.0-16.0); Mean Corpuscular Volume 101.8 fL (80.0-98.0); Platelet Count 164 X10*3/uL (160-400); Red Blood Count 3.93 X10*6/uL (4.20-5.50)
--- OUTSIDE RECORDS SUMMARY | 2025-01-17 09:33 | XMS_ITS | Clinical Summary ---
Author Organization [facility] Address [address] [place] [address] Phone Care Team Providers Care Alcohol Rubber Name Role Phone Unavailable Primary Care Provider [...]
[2025-01-17 10:00] LABS: Calcium 8.7 mg/dL (8.4-10.2); Chloride 94 mmol/L (96-108); Potassium 2.6 mmol/L (3.3-5.1); Sodium 143 mmol/L (135-145)
[2025-01-17 11:39] LABS: Microalbum/Creatinine Ratio Ur 8.7 ug/mg cr (<30)
== END 2025-01-17 08:33 | disposition home or self-care (01) ==
LOC: HO.LAB 08:32
PROVIDERS: PCP Internal Medicine; Visit Provider Internal Medicine
DX: E55.9 Vitamin D deficiency, unspecified (principal); E53.8 Deficiency of other specified B group vitamins; D64.9 Anemia, unspecified; I48.91 Unspecified atrial fibrillation; E78.5 Hyperlipidemia, unspecified; R80.9 Proteinuria, unspecified
CPT/HCPCS: 36415; 80053; 80061; 82043; 82306; 82570; 82607; 82746; 83540; 85025

== ENCOUNTER 2025-01-18 13:47 | Outpatient (AMB) | payer MEDICARE, MEDICAID, SELFPAY ==
--- NOTE | 2025-01-18 14:02 | A.OFFPC_ITS ---
Vital Signs 01/18/25 14:03 Height 5 ft 2 in Weight 223 lb 2 oz BMI 40.8 BP 120/72 Blood Pressure Location Lt brachial Position Sitting Pulse 67 Pulse Source Pulse Oximeter Temp 96.9 F Temp Source Temporal Artery Scan Pulse Oximetry (%) 97 Oxygen Delivery Method Room Air Intake Visit Reasons: bp - see comments Intake Note: Patient is here to follow up on BP. Machine Sneller Required: No Small Animal Veterinarian: Not Required per policy Accompanied by: Self / Same As Patient Allergies shrimp (SHRIMP) Allergy (Mild, Verified 01/18/25 14:22) HIVES diltiazem Adverse Reaction (Severe, Uncoded 01/18/25 14:22) feet pain, swelling Medication List - Last Reconciled 01/18/25 by Spring Chicas MD ammonium lactate 12% 1 appl topical BID atorvastatin 40 mg PO DAILY betamethasone dipropionate 0.05% 0.05 appl topical DAILY blood sugar diagnostic (Accu-Chek Guide test strips) As directed 2 times per day blood-glucose meter TEST 2 TIMES DAILY blood-glucose meter (Accu-Chek Guide Glucose Meter) As directed cephalexin 500 mg PO BID 7 days cholecalciferol (vitamin D3) 1,000 units PO DAILY cyanocobalamin (vitamin B-12) 1,000 mcg PO DAILY esomeprazole magnesium (Nexium) 20 mg PO DAILY furosemide (Lasix) 80 mg PO BID 90 days glipizide 5 mg PO DAILY hydrocortisone 1% (Anti-Itch (hydrocortisone)) 1 appl topical BID PRN 2 weeks lancets (Accu-Chek Softclix Lancets) Use 1 Lancet once a day lancing device ACCU-CHECK DARLINE DEVICE lancing device (Adjustable Lancing Device) As directed losartan-hydrochlorothiazide 100-25 mg 1 tab PO DAILY [Neuriva brain health supplent orally m w f; ] phenytoin sodium extended 200 mg (2 x 100 mg) PO BID 90 days potassium chloride ER 10 mEq PO DAILY 7 days terazosin 1 mg PO BEDTIME 30 days tizanidine 4 mg PO Q8H PRN vitamins A,C,H-bepn-euxozk (PreserVision AREDS) 159 % PO BID warfarin 5 mg See Protocol PO DAILY Tobacco use date assessed: 01/18/25 Fall risk assessment: No Falls in past year Last assessed Fall Risk: 01/18/25 Dental Screening Dental Screen Date: 07/18/24 HPI HPI Comments History of Present Illness Details The patient is a 79-year-old female presenting with follow-up of all chronic conditions. She does have hypertension well controlled with medications. She has seizures on phenytoin that has well control this matter and follows with Neurology. She also has diabetes mellitus type 2 with an A1c within goal. She reports bladder dysfunction for which she consulted a urologist and was pre scribed medication. She has allergies to shrimp and diltiazem, which cause foot pain and swelling. The patient has been experiencing cellulitis, which improves with cephalexin but has not completely resolved. She also has a history of vascular insufficiency and a blood clot at the age of 29, but does not currently see a vascular specialist. She is on vitamin D and B12 supplements, and takes Nexium for gastroesophageal reflux disease. She is also on Lasix, which has contributed to her hypokalemia, with potassium levels dropping to 2.6 mEq/L. She does follows with Nephrology. The patient is morbidly obese with a BMI of 40, but is not currently concerned about her weight. [facility] Medical History (Updated 01/18/25 @ 14:44 by Spring Chicas MD) Morbid obesity with BMI of 40.0-44.9, adult Epilepsy GERD without esophagitis Vitamin D deficiency Mixed hyperlipidemia Essential hypertension Diabetes mellitus PAF (paroxysmal atrial fibrillation) Atrial fibrillation Factor V Leiden DVT (deep venous thrombosis) Hyperlipidemia Hypertension Diabetes mellitus with coincident hypertension Surgical History History of lumpectomy of right breast History of appendectomy History of cholecystectomy Family History Father Asthma Mother Diabetes Hypertension Colon cancer Other Substance use disorder Social History Household Members: None Housing: Apartment Do you presently have visiting nurse or other home services: No Alcohol intake: never Patient Tobacco Use Status: Never used Tobacco Tobacco use type: Cigarette e-Cigarette/Vaping Use: Never Used Second Hand Smoke Exposure: No Advance Directives Date on File: 02/03/23 service: No Current occupational status: employed Cognitive needs: No Hearing needs: No Vision needs: No Questionnaire PHQ-9 Over the last 2 weeks, how often have you been bothered by any of the following problems? 1. Little interest or pleasure in doing things: nearly every day 2. Feeling down, depressed, or hopeless: nearly every day 3. Trouble falling or staying asleep, or sleeping too much: nearly every day 4. Feeling tired or having little energy: nearly every day 5. Poor appetite or overeating: more than half the days 6. Feeling bad about yourself - or that you are a failure or have let yourself or your family down: not at all 7. Trouble concentrating on things, such as reading the newspaper or watching television: not at all 8. Moving or speaking so slowly that other people could have noticed. Or the opposite - being so fidgety or restless that you have been moving around a lot more than usual: not at all 9. Thoughts that you would be better off or of hurting yourself in some way: not at all Total score: 14 Depression Screening Interpretation: Positive Depression Screening Follow-up: Existing condition and Follow-up Visit Requested Depression Screening Done: Yes 35648 - PHQ-9 Billing: Yes Source: Developed by Drs. Tee Esqueda, Cami Betts, Zac Arellano and colleagues, with an educational naz from [employer]. Thrive Questionnaire Date Thrive assessed: 11/11/24 I am a: Patient What is your living situation today?: I have a steady place to live Within the past 12 months, did the food you bought not last and you didn't have the money to get more?: I choose not to answer this question Within the past 12 months, did you worry whether your food would run out before you got money to buy more?: I choose not to answer this question Do you have trouble paying for medicines?: No Do you have trouble getting transportation to medical appointments?: No Do you have trouble paying your heating and electricity bill?: No Do you have trouble taking care of your child, family member or friend?: No Do you have trouble with day-to-day activities such as bathing, preparing meals, shopping, managing finances, etc.?: I choose not to answer this question Are you currently unemployed and looking for a job?: I choose not to answer this question Are you interested in more education?: I choose not to answer this question Please select the resources that you would like help with: None Currently or been in a relationship where the following occur: I choose not to answer THRIVE Score: 0 AUDIT C Alcohol Use Questionnaire (AUDIT-C) 1. How often do you have a drink containing alcohol?: Never Total Score: 0 Score Reviewed/Action Taken: No JOEL-7 AMB Questionnaire JOEL-7 Date JOEL - 7 assessed: 07/18/24 Feeling nervous, anxious, or on edge: 0 = Not at all Not being able to stop or control worryin = Not at all Worrying too much about different things: 0 = Not at all Trouble relaxin = Not at all Being so restless that it is hard to sit still: 0 = Not at all Becoming easily annoyed or irritable: 0 = Not at all Feeling afraid as if something awful might happen: 0 = Not at all Total JOEL-7 score (0-4 normal; 5-9 mild; 10-14 moderate; 15-21 severe): 0 Source: Developed by Drs. Tee Esqueda, Cami Betts, Zac Arellano and colleagues, with an educational naz from [employer]. JOEL-7 Assessment Billing JOEL-7 Assessment Tool: JOEL-7 Assessment 42642 Review of Systems Const All systems reviewed & are unremarkable except as noted in HPI and below Card Denies chest pain at rest, Denies chest pain with activity, Denies edema, Denies irregular heart rhythm, Denies claudication, Denies dyspnea, Denies dyspnea on exertion, Denies orthopnea, Denies paroxysmal nocturnal dyspnea and Denies slow heart rate Resp Denies cough, Denies dyspnea and Denies dyspnea on exertion Physical exam (Primary Care) Vital Signs: Last Vital Signs Temp 96.9 F 01/18/25 14:03 Pulse 67 01/18/25 14:03 BP 120/72 01/18/25 14:03 Pulse Ox 97 01/18/25 14:03 Oxygen Delivery Method Room Air 01/18/25 14:03 BMI result Body Mass Index 40.8 BMI Assessment/Plan discussion: High BMI High, discussed plan: lifestyle, weight reduction, dietary and physical activity Tobacco/Smoking Status: Tobacco use Status Tobacco use date assessed 01/18/25 01/18/25 14:08 Patient Tobacco Use Status Never used Tobacco 01/18/25 14:08 Tobacco use type Cigarette 01/18/25 14:08 e-Cigarette/Vaping Use Never Used 01/18/25 14:08 PHQ-9: PHQ-9 Score PHQ-9: Total score 14 01/18/25 14:08 Depression Screening Interpretation: Positive Depression Screening Follow-up: Existing condition and Follow-up Visit Requested Thrive Assessment: Date of Thrive Assessment Date Thrive assessed 11/11/24 01/18/25 14:08 Currently or been in a relationship where the following occur: I choose not to answer Resp Effort & Inspection: normal respiratory effort Auscultation: clear to auscultation bilaterally Cardio Jugular venous distension: no JVD Rate: regular rate Rhythm: regular rhythm Heart sounds: S1 normal heart sound present and S2 normal heart sound present Extrem General: Yes full ROM Coding Level of Care Code Est Pt Level 4 (45004) Complex EM visit Add On G2211 Diagnoses Essential hypertension I10 Mixed hyperlipidemia E78.2 Diabetes mellitus with coincident hypertension E11.9; I10 Morbid obesity with BMI of 40.0-44.9, adult E66.01; Z68.41 Seizure R56.9 Hypokalemia E87.6 Additional Codes PHQ-9 - 66844 - PHQ-9 Billing: Yes ([id number]) JOEL-7 Assessment Billing - JOEL-7 Assessment Tool: JOEL-7 Assessment 49650 ([id number]) Time Spent (min) 25 Assessment & Plan Assessment & Plan (1) Essential hypertension: Code(s): I10 - Essential (primary) hypertension Category: Medical (2) Mixed hyperlipidemia: Code(s): E78.2 - Mixed hyperlipidemia Category: Medical (3) Diabetes mellitus with coincident hypertension: Code(s): E11.9 - Type 2 diabetes mellitus without complications; I10 - Essential (primary) hypertension Category: Medical (4) Morbid obesity with BMI of 40.0-44.9, adult: Code(s): E66.01 - Morbid (severe) obesity due to excess calories; Z68.41 - Body mass index [BMI] 40.0-44.9, adult Category: Medical (5) Seizure: Code(s): R56.9 - Unspecified convulsions Category: Medical (6) Hypokalemia: Code(s): E87.6 - Hypokalemia Category: Medical Plan Plan Patient was informed and verbally consented to the use of an ambient scribe for clinic note documentation during this visit. 1. Bladder Dysfunction The patient is currently on medication prescribed by a urologist for bladder dysfunction. 2. Cellulitis The patient is being treated with cephalexin, which has shown some improvement but has not completely resolved the cellulitis. 3. Vascular Insufficiency Referral to a vascular surgeon is planned to address the vascular insufficiency and associated hyperpigmentation. 4. Hypokalemia The patient's hypokalemia is being monitored with plans to repeat potassium levels in two weeks and conduct an EKG to assess cardiac function. 5. Morbid Obesity The patient is aware of her morbid obesity but is not currently concerned about weight management. Orders: Orders Magnesium Today E87.6 - Hypokalemia ECG 12 lead EKG Today E87.6 - Hypokalemia Referrals Vascular Surgery Referral I87.2 - Venous insufficiency (chronic) (peripheral) Medications: New losartan 100 mg PO DAILY 90 tabs 1RF 90 days Refilled cephalexin 500 mg PO BID 7 days 14 caps 0RF cephalexin 500 mg PO BID 14 caps 0RF 7 days Discontinued losartan-hydrochlorothiazide 100-25 mg Discontinued Reason: Patient Completed Course 1 tab PO DAILY 90 tabs 3RF
[2025-01-18 14:03] VITALS: BP 120/72; PULSE 67; TEMP 36.1; O2SAT 97; BMI 40.8
--- OUTSIDE RECORDS SUMMARY | 2025-01-18 16:17 | XMS_ITS | Clinical Summary ---
Author Organization [facility] Address [address] [place] [address] Phone Care Team Providers Care Java Project Manager Name Role Phone Unavailable Primary Care [...]
== END 2025-01-18 14:42 | disposition home or self-care (01) ==
LOC: HO.HMCH 13:48
PROVIDERS: PCP Internal Medicine; Visit Provider Internal Medicine
DX: E11.69 Type 2 diabetes mellitus with other specified complication (principal); E66.01 Morbid (severe) obesity due to excess calories; Z68.41 Body mass index [BMI] 40.0-44.9, adult; R56.9 Unspecified convulsions; I10 Essential (primary) hypertension; E78.2 Mixed hyperlipidemia; E87.6 Hypokalemia

== ENCOUNTER → 2025-01-18 13:47 | Outpatient (BNVA) | payer MEDICARE, MEDICAID, SELFPAY | PROVIDERS: PCP Internal Medicine; Visit Provider Internal Medicine | DX: I10 Essential (primary) hypertension (principal); E11.9 Type 2 diabetes mellitus without complications; L03.90 Cellulitis, unspecified; K21.9 Gastro-esophageal reflux disease without esophagitis; E66.01 Morbid (severe) obesity due to excess calories; E78.2 Mixed hyperlipidemia; R56.9 Unspecified convulsions; E87.6 Hypokalemia; N32.89 Other specified disorders of bladder; I87.2 Venous insufficiency (chronic) (peripheral); Z68.41 Body mass index [BMI] 40.0-44.9, adult | CPT/HCPCS: 96127; 99212 ==

== ENCOUNTER 2025-01-21 09:05 | Emergency (ER) | payer MEDICARE, MEDICAID, SELFPAY ==
--- NOTE | 2025-01-21 09:07 | ECG_ITS ---
Test Reason : CHEST PAIN Blood Pressure : */* mmHG Vent. Rate : 76 BPM Atrial Rate : 76 BPM P-R Int : 172 ms QRS Dur : 96 ms QT Int : 428 ms P-R-T Axes : -5 124 63 degrees QTcB Int : 481 ms Normal sinus rhythm Inferior-posterior infarct (cited on or before 02-Sep-2021) Abnormal ECG When compared with ECG of 20-Apr-2023 18:12, Questionable change in QRS axis Referred By: Generic ED Physician Electronically Signed By: Dionisio Brooks
[2025-01-21 09:16] VITALS: BP 152/82; PULSE 72; RESP 16; TEMP 36.8; O2SAT 97; BMI 32.8
[2025-01-21 09:40] VITALS: BP 181/64; PULSE 72; RESP 16; TEMP 36.8; O2SAT 97
--- NOTE | 2025-01-21 09:47 | PC.NURSE ---
Patient presents to ED after reporting that it feels like her heart is racing EKG = NSR On back shoe cutter 75bpm NSR Patient reports heart racing feeling resolved at this time Denies SOB, dizziness, lightheadedness, Pain, N/V Patient on coumadin, Hx DVT. No unusual bleeding noted at bedside Blood collected/sent Provider in to see patient plan of care on going
[2025-01-21 09:48] LABS: MANUAL DIFF FLAG NO
--- OUTSIDE RECORDS SUMMARY | 2025-01-21 09:54 | XMS_ITS | Clinical Summary ---
Author Organization [facility] Address [address] [place] [address] Phone Care Team Providers Care Software Quality Analyst Name Role Phone Unavailable Primary Care Provider [...]
[2025-01-21 09:58] LABS: Hematocrit 38.1 % (37.0-47.0); Hemoglobin 13.0 g/dl (12.0-16.0); Imm Gran Abs Auto 0.02 X10*3/uL (0.00-0.03); Imm Gran Pct Auto 0.4 % (0.0-0.4); Lymphocytes Absolute Auto 1.2 X10*3/uL (1.2-4.9); Mean Corpuscular HGB Conc 34.1 g/dl (31.0-35.0); Mean Corpuscular Hemoglobin 34.2 pg (27.0-33.0); Mean Corpuscular Volume 100.3 fL (80.0-98.0); NRBC Abs Auto 0.000 X10*3/uL (0.0-0.012); NRBC Pct Auto 0.0 /100WBC (0.0-0.2); Platelet Count 160 X10*3/uL (160-400); Red Blood Count 3.80 X10*6/uL (4.20-5.50); White Blood Count 4.9 X10*3/uL (4.8-10.8)
[2025-01-21 10:07] LABS: Alanine Aminotransferase 29 U/L (0-31); Albumin Level 3.6 g/dL (3.5-5.0); Alkaline Phosphatase 71 U/L (39-117); Anion Gap 13 (12-20); Aspartate Amino Transferase 26 U/L (5-31); Blood Urea Nitrogen 27 mg/dL (9-16); Calcium 8.5 mg/dL (8.4-10.2); Carbon Dioxide 36 mmol/L (22-29); Chloride 98 mmol/L (96-108); Creatinine Clr Calc Pharmacy 60.9; Estimated Glomerular Filt Rate > 60; Magnesium 2.2 mg/dL (1.6-2.6); Potassium 3.0 mmol/L (3.3-5.1); Sodium 144 mmol/L (135-145); Total Protein 6.2 g/dL (6.5-8.0)
[2025-01-21 10:14] LABS: Troponin-I High Sensitivity 3.6 ng/L (<3.5-17.0)
--- NOTE | 2025-01-21 10:50 | ED.GENADULT ---
HPI - General Adult General Chief complaint: General Medical Stated complaint: rapid heart beat Time Seen by Provider: 01/21/25 10:50 History of Present Illness ED Provider: Jamal JANE narrative: The patient is a 79-year-old female with a history of left leg DVT and chronic left leg venous stasis dermatitis she has a history of factor 5 Leiden deficiency and is on warfarin. She also has a history of paroxysmal atrial fibrillation as well as peripheral edema for which she is on furosemide. Also hypertension and type 2 diabetes. The patient was seen by Nephrology almost 2 months ago. At that visit she had her furosemide increased from 40 mg b.i.d. to 80 mg b.i.d.. Additionally she was switched from lisinopril 40 mg daily to losartan/hydrochlorothiazide, 100 mg/25 mg. On her last echocardiogram she had normal left ventricular systolic function. More recently the patient has felt that she has had a recurrence of a left lower leg cellulitis for which she has been on cephalexin for about 10 days. Today the patient has a sense of her heart racing and felt weak all over. She thought that perhaps she was having atrial fibrillation. Her drove her to the hospital. No definite fever. Related Data Home Medications ?Medication ?Instructions ?Recorded ?Confirmed tizanidine 4 mg tablet 4 mg PO Q8H PRN muscle spasticity 03/06/23 01/18/25 vitamins A,C,J-eqeh-dodcux 159 % PO BID 09/15/24 01/18/25 [PreserVision AREDS] betamethasone dipropionate 0.05 % 0.05 appl topical DAILY 09/26/24 01/18/25 topical cream cholecalciferol (vitamin D3) 1,000 unit PO DAILY 11/11/24 01/18/25 Neuriva brain health supplent See Rx Instructions PO .COMPLEX 11/28/24 01/18/25 Previous Rx's ?Medication ?Instructions ?Recorded lancing device #1 ea 02/10/20 ammonium lactate 12 % topical cream 1 applic topical BID #140 grams 03/08/20 blood-glucose meter #1 ea 09/27/21 atorvastatin 40 mg tablet 40 mg PO DAILY #90 tabs 01/02/24 cyanocobalamin (vitamin B-12) 1,000 mcg PO DAILY #90 caps 01/02/24 1,000 mcg capsule esomeprazole magnesium 20 mg 20 mg PO DAILY #90 caps 08/05/24 capsule,delayed release (Nexium) hydrocortisone 1 % topical cream 1 appl topical BID PRN skin 08/11/24 (Anti-Itch (hydrocortisone)) irritation 2 weeks #28.4 grams warfarin 5 mg tablet 5 mg PO DAILY #90 tabs 10/05/24 glipizide 5 mg tablet 5 mg PO DAILY #100 tabs 10/31/24 blood sugar diagnostic (Accu-Chek #100 ea 11/11/24 Guide test strips) blood-glucose meter (Accu-Chek #1 ea 11/11/24 Guide Glucose Meter) lancing device (Adjustable Lancing #1 ea 11/11/24 Device) phenytoin sodium extended 100 mg 200 mg (2 x 100 mg) PO BID 90 days 11/14/24 capsule #360 caps lancets (Accu-Chek Softclix #100 ea 11/15/24 Lancets) terazosin 1 mg capsule 1 mg PO BEDTIME 30 days #30 caps 11/16/24 furosemide 80 mg tablet (Lasix) 80 mg PO BID 90 days #180 tabs 11/30/24 potassium chloride 10 mEq 10 meq PO DAILY 7 days #7 caps 01/17/25 capsule,extended release cephalexin 500 mg capsule 500 mg PO BID 7 days #14 caps 01/18/25 losartan 100 mg tablet 100 mg PO DAILY 90 days #90 tabs 01/18/25 potassium chloride 10 mEq 10 meq PO BID #14 caps 01/21/25 capsule,extended release Allergies Allergy/AdvReac Type Severity Reaction Status Date / Time shrimp (SHRIMP) Allergy Mild HIVES Verified 01/21/25 09:16 diltiazem AdvReac Severe feet pain, Uncoded 01/18/25 14:22 swelling PMFSH Past Medical History Medical History Morbid obesity with BMI of 40.0-44.9, adult Epilepsy GERD without esophagitis Vitamin D deficiency Mixed hyperlipidemia Essential hypertension Diabetes mellitus PAF (paroxysmal atrial fibrillation) Atrial fibrillation Factor V Leiden DVT (deep venous thrombosis) Hyperlipidemia Hypertension Diabetes mellitus with coincident hypertension Surgical History History of lumpectomy of right breast History of appendectomy History of cholecystectomy Family History Family History Father Asthma Mother Diabetes Hypertension Colon cancer Other Substance use disorder Social History Social History Household Members: None Housing: Apartment Do you presently have visiting nurse or other home services: No Alcohol intake: current Alcohol intake frequency: holidays/special occasions only Patient Tobacco Use Status: Never used Tobacco Tobacco use type: Cigarette Smoked in Last 30 Days: No e-Cigarette/Vaping Use: Never Used Second Hand Smoke Exposure: No Use of substances other than those prescribed or required for medical reasons: No Advance Directives: Yes Advance Directives on File: Yes Advance Directives Date on File: 02/03/23 service: No Current occupational status: employed Cognitive needs: No Hearing needs: No Vision needs: No Physical Exam ED Vital Signs: Vital Signs - 24 hr 01/21/25 09:16 01/21/25 09:40 01/21/25 12:12 Temperature 98.3 F 98.3 F Pulse Rate 72 72 71 Respiratory Rate 16 16 17 Blood Pressure 152/82 H 181/64 H 129/48 L Pulse Oximetry 97 97 97 Oxygen Delivery Method Room Air Room Air Room Air 01/21/25 12:43 Temperature 98.2 F Pulse Rate 71 Respiratory Rate 17 Blood Pressure 129/48 L Pulse Oximetry 97 Oxygen Delivery Method Room Air BMI result Body Mass Index 32.8 Const Other: The patient is a 79-year-old woman. She is awake and alert. She looks chronically ill. She does not appear obviously acutely ill. She does not seem in distress. Orientation/consciousness: patient oriented x3 HENMT Other: The face is symmetrical. ?Mucous membranes moist. Eyes Other: Pupils are round equal, conjunctivae are clear, extraocular movements intact General: appearance normal, both eyes and all related structures Neck Neck: Yes normal visual inspection, Yes full ROM and Yes no JVD Resp Effort & Inspection: normal respiratory effort Auscultation: clear to auscultation bilaterally Cardio Other: No murmur heard Rate: regular rate Rhythm: regular rhythm Heart sounds: S1 normal heart sound present and S2 normal heart sound present GI Other: Abdomen is soft and nontender Skin Other: There are a lot brownish skin changes to the left lower leg just above the ankle. These changes have the appearance of venous stasis changes. No definite erythema. No definite warmth. Neuro General: patient oriented x3, tone normal, moves all extremities, no focal motor deficits and CN's II-XI intact bilaterally Extrem Other: The patient has a lot of chronic venous stasis skin changes that the skin of the left lower leg above the ankle. No definite erythema or significant warmth. The feet are well-perfused. Good dorsalis pedis pulses. Medical Decision Making Medical Decision Making [facility] Narrative: The patient is a 79-year-old woman with a history of paroxysmal atrial fibrillation who was on warfarin. She has not felt very well for the past few days she says but I believe her acute problem this morning was a sense of her heart racing. However by the time she got here her symptom of heart racing had resolved and she was in a sinus rhythm. She has also been taking cephalexin recently for a question of a recurrent left lower leg infection. She has a remote history of a left leg DVT which has been complicated by chronic venous stasis dermatitis in the left leg. She apparently has a history of factor 5 Leiden disorder and is on warfarin. I do not feel her physical exam was highly suggestive of any significant cellulitis. She has good pulses in her feet. Her INR is slightly supratherapeutic at 3.3. Her CBC shows a white count of 4.9, hemoglobin 13.0, platelet count 160, differential on her white count is normal. Chemistries show a potassium slightly low at 3.0. Troponin is normal. CRP is minimally elevated at 0.75. ProBNP is normal at 135. Her EKG shows sinus rhythm and is unchanged from previous. The patient seemed relatively asymptomatic in the emergency department. Clinically she did not seem obviously acutely ill. Her workup is essentially negative. It may be that she had an episode of paroxysmal atrial fibrillation this morning. That might has been the trigger for her to come to the emergency room. I do not see any other acutely dangerous process at work. Her potassium is mildly low. She has had an increase in her furosemide recently and this is helped her peripheral edema. I will prescribe additional potassium for her. She should follow up with her regular providers. Lab Data 01/21/25 09:44 01/21/25 09:44 Labs: Lab Results 01/21/25 Range/Units 09:44 WBC 4.9 (4.8-10.8) X10*3/uL RBC 3.80 L (4.20-5.50) X10*6/uL Hgb 13.0 (12.0-16.0) g/dl Hct 38.1 (37.0-47.0) % MCV 100.3 H (80.0-98.0) fL MCH 34.2 H (27.0-33.0) pg MCHC 34.1 (31.0-35.0) g/dl RDW 13.1 (11.0-16.0) % Plt Count 160 (160-400) X10*3/uL MPV 9.3 L (9.4-12.3) fL Immature Gran % (Auto) 0.4 (0.0-0.4) % Neut % (Auto) 68.4 (45-73) % Lymph % (Auto) 23.6 (20-40) % [place] % (Auto) 6.4 (2-11) % Eos % (Auto) 0.8 (0-4) % Baso % (Auto) 0.4 (0-2) % Lymph # (Auto) 1.2 (1.2-4.9) X10*3/uL [place] # (Auto) 0.3 (0.1-1.2) X10*3/uL Eos # (Auto) 0.0 (0.0-0.4) X10*3/uL Baso # (Auto) 0.0 (0.0-0.2) X10*3/uL Abs Immat Gran (auto) 0.02 (0.00-0.03) X10*3/uL Absolute Neuts (auto) 3.3 (2.0-8.3) x10*3/uL Absolute Nucleated RBC 0.000 (0.0-0.012) X10*3/uL Nucleated RBC % (auto) 0.0 (0.0-0.2) /100WBC PT 38.3 H D (10.9-12.4) SEC INR 3.3 H (0.9-1.1) Sodium 144 (135-145) mmol/L Potassium 3.0 L (3.3-5.1) mmol/L Chloride 98 (96-108) mmol/L Carbon Dioxide 36 H (22-29) mmol/L Anion Gap 13 (12-20) BUN 27 H (9-16) mg/dL Creatinine 0.78 (0.5-1.4) mg/dL Estim Creat Clear Calc 60.9 Estimated GFR > 60 Random Glucose 136 H (60-115) mg/dL Calcium 8.5 (8.4-10.2) mg/dL Magnesium 2.2 (1.6-2.6) mg/dL Total Bilirubin 0.3 (0.0-1.0) mg/dL AST 26 (5-31) U/L ALT 29 (0-31) U/L Alkaline Phosphatase 71 (39-117) U/L Troponin I High Sens 3.6 (<3.5-17.0) ng/L C-Reactive Protein 0.75 H (< or = 0.50) mg/dL NT-Pro-B Natriuret Pep 135.6 (<300) pg/mL Total Protein 6.2 L (6.5-8.0) g/dL Albumin 3.6 (3.5-5.0) g/dL Independent Interpretation I performed an independent interpretation of an: EKG Interpretation: EKG at 04/29/2008 shows normal sinus rhythm at 76 beats per minute. No definite acute ischemic changes. No significant changes from previous. Discharge Plan Discharge Clinical Impression: Palpitations, Hypokalemia Patient Disposition: Home, Self-Care Additional Instructions: Your testing in the emergency room today seems reassuring. It is possible you had an episode of atrial fibrillation earlier but here in the emergency room you were not having ongoing atrial fibrillation. Your potassium is mildly low at 3.0. Please plan on continuing to take the potassium chloride tablets 2 times a day. I have sent a prescription for additional potassium tablets. Your INR today was 3.3. It might be jimenez to take half a dose of warfarin today. I think if you are able to get compression stockings to wear on your lower legs that might be helpful as well. Please plan on following up with your regular doctor and your kidney doctor. Return to the emergency room if significantly worse. Prescriptions: New potassium chloride 10 mEq capsule, extended release 10 meq PO BID Qty: 14 0RF No Action (DME) lancing device Misc See Rx Instructions .ROUTE .MEDSUPPLY Qty: 1 8RF Rx Instructions: ACCU-CHECK DARLINE DEVICE ammonium lactate 12 % cream 1 applic topical BID Qty: 140 6RF atorvastatin 40 mg tablet 40 mg PO DAILY Qty: 90 8RF cyanocobalamin (vitamin B-12) 1,000 mcg capsule 1,000 mcg PO DAILY Qty: 90 0RF esomeprazole magnesium [Nexium] 20 mg capsule,delayed release(DR/EC) 20 mg PO DAILY Qty: 90 2RF warfarin 5 mg tablet 5 mg PO DAILY Qty: 90 2RF Protocol: Dose Management Condition: Thursday (Week One) Dose/Route: 5 mg Instruction: 1 x 5 mg tablet Condition: Thursday Dose/Route: 5 mg Instruction: 1 x 5 mg tablet Condition: Thursday Dose/Route: 2.5 mg Instruction: 0.5 x 5 mg tablets Condition: Thursday Dose/Route: 5 mg Instruction: 1 x 5 mg tablet Condition: Dose/Route: 5 mg Instruction: 1 x 5 mg tablet Condition: Thursday Dose/Route: 5 mg Instruction: 1 x 5 mg tablet Condition: Thursday Dose/Route: 2.5 mg Instruction: 0.5 x 5 mg tablets Condition: Thursday (Week Two) Dose/Route: 5 mg Instruction: 1 x 5 mg tablet Condition: Thursday Dose/Route: 5 mg Instruction: 1 x 5 mg tablet Condition: Thursday Dose/Route: 5 mg Instruction: 1 x 5 mg tablet Condition: Thursday Dose/Route: 5 mg Instruction: 1 x 5 mg tablet Condition: Dose/Route: 5 mg Instruction: 1 x 5 mg tablet Condition: Thursday Dose/Route: 5 mg Instruction: 1 x 5 mg tablet Condition: Thursday Dose/Route: 2.5 mg Instruction: 0.5 x 5 mg tablets Protocol Text: Adjustment Start Date: Thursday01/16/25 INR Value: Pending INR Date: 01/16/25 Recheck Date: 01/23/25 glipizide 5 mg tablet 5 mg PO DAILY Qty: 100 2RF phenytoin sodium extended 100 mg capsule 200 mg PO BID 90 Days Qty: 360 3RF (DME) lancets [Accu-Chek Softclix Lancets] Misc See Rx Instructions .Route Qty: 100 3RF Rx Instructions: Use 1 Lancet once a day potassium chloride 10 mEq capsule, extended release 10 meq PO DAILY 7 Days Qty: 7 0RF (DME) blood-glucose meter Misc See Rx Instructions .ROUTE .MEDSUPPLY Qty: 1 0RF Rx Instructions: TEST 2 TIMES DAILY tizanidine 4 mg tablet 4 mg PO Q8H PRN (Reason: muscle spasticity) losartan 100 mg tablet 100 mg PO DAILY 90 Days Qty: 90 1RF cephalexin 500 mg capsule 500 mg PO BID 7 Days Qty: 14 0RF hydrocortisone [Anti-Itch (HC)] 1 % cream 1 appl topical BID PRN (Reason: skin irritation) 14 Days Qty: 28.4 0RF vitamins A,C,S-pmap-wleosf [PreserVision AREDS] 159 % PO BID Patient Comments: 2 TABS DAILY cholecalciferol (vitamin D3) 1,000 unit PO DAILY Patient Comments: 1 TAB DAILY Neuriva brain health supplent See Rx Instructions PO .COMPLEX Patient Comments: pt states taking supplement x 1 week Rx Instructions: orally m w f; terazosin 1 mg capsule 1 mg PO BEDTIME 30 Days Qty: 30 3RF furosemide [Lasix] 80 mg tablet 80 mg PO BID 90 Days Qty: 180 3RF betamethasone dipropionate 0.05 % cream 0.05 appl topical DAILY (DME) Accu-Chek Guide test strips Strip See Rx Instructions .Route Qty: 100 6RF Rx Instructions: As directed 2 times per day (DME) blood-glucose meter [Accu-Chek Guide Glucose Meter] Misc See Rx Instructions .Route Qty: 1 0RF Rx Instructions: As directed (DME) lancing device [Adjustable Lancing Device] Misc See Rx Instructions .Route Qty: 1 0RF Rx Instructions: As directed Referrals: Monty Barriga MD [Physician, Critical Care ([facility])] Spring Rebolledo MD [Primary Care Provider, Internal Medicine] Interventions: ED Discharge Assessment Last Done: 01/21/25 12:43 Discharge Date/Time: 01/21/25 12:44 Print Language: Bangladeshi
[2025-01-21 10:58] LABS: INTERNATIONAL NORM RATIO 3.3 (0.9-1.1); Prothrombin Time 38.3 SEC (10.9-12.4)
[2025-01-21 11:59] LABS: NT Pro B Type Natriuretic Pept 135.6 pg/mL (<300)
[2025-01-21 12:12] VITALS: BP 129/48; PULSE 71; RESP 17; O2SAT 97
[2025-01-21 12:43] VITALS: BP 129/48; PULSE 71; RESP 17; TEMP 36.8; O2SAT 97
== END 2025-01-21 12:44 | disposition home or self-care (01) ==
PROVIDERS: Emergency Provider Emergency Medicine; PCP Internal Medicine
DX: R00.2 Palpitations (principal); E87.6 Hypokalemia; D68.2 Hereditary deficiency of other clotting factors; E11.9 Type 2 diabetes mellitus without complications; I48.0 Paroxysmal atrial fibrillation; R06.02 Shortness of breath; Z79.01 Long term (current) use of anticoagulants; Z79.899 Other long term (current) drug therapy
CPT/HCPCS: 36415; 80053; 83735; 83880; 84484; 85025; 85610; 86140; 93005; 99283; 99284

== ENCOUNTER → 2025-01-21 09:07 | Outpatient (BNV) | payer MEDICARE, MEDICAID, SELFPAY | PROVIDERS: Emergency Provider Emergency Medicine; PCP Internal Medicine; Visit Provider Internal Medicine Cardiovascular Disease | DX: I25.2 Old myocardial infarction (principal) | CPT/HCPCS: 93010 ==

== ENCOUNTER 2025-01-23 13:03 | Outpatient (AMB) | payer MEDICARE, MEDICAID, SELFPAY ==
[2025-01-23 13:18] LABS: Prothrombin Time Whole Bld POC 26.8 sec (11.1-13.5); ~PT, ~INR - Anti Coag Clinic 2.2 (0.9-1.1)
--- NOTE | 2025-01-23 13:40 | MHC.OFFVISCO ---
Intake Intake Visit Reasons: Anticoagulation Allergies shrimp (SHRIMP) Allergy (Mild, Verified 01/23/25 13:12) HIVES diltiazem Adverse Reaction (Severe, Uncoded 01/23/25 13:12) feet pain, swelling Medication List - Last Reconciled 01/23/25 by Clover Granados, RN ammonium lactate 12% 1 appl topical BID atorvastatin 40 mg PO DAILY betamethasone dipropionate 0.05% 0.05 appl topical DAILY blood sugar diagnostic (Accu-Chek Guide test strips) As directed 2 times per day blood-glucose meter TEST 2 TIMES DAILY blood-glucose meter (Accu-Chek Guide Glucose Meter) As directed cephalexin 500 mg PO BID 7 days cholecalciferol (vitamin D3) 1,000 units PO DAILY cyanocobalamin (vitamin B-12) 1,000 mcg PO DAILY esomeprazole magnesium (Nexium) 20 mg PO DAILY furosemide (Lasix) 80 mg PO BID 90 days glipizide 5 mg PO DAILY hydrocortisone 1% (Anti-Itch (hydrocortisone)) 1 appl topical BID PRN 2 weeks lancets (Accu-Chek Softclix Lancets) Use 1 Lancet once a day lancing device ACCU-CHECK DARLINE DEVICE lancing device (Adjustable Lancing Device) As directed losartan 100 mg PO DAILY 90 days [Neuriva brain health supplent orally m w ; ] phenytoin sodium extended 200 mg (2 x 100 mg) PO BID 90 days potassium chloride ER 10 mEq PO BID terazosin 1 mg PO BEDTIME 30 days tizanidine 4 mg PO Q8H PRN vitamins A,C,O-wpmw-jbipkr (PreserVision AREDS) 159 % PO BID warfarin 5 mg See Protocol PO DAILY Nursing Note INR: 2.2 in therapeutic range of 2-3 Pt was in the ER on 01/21/25 with rapid heart rate per pt. Question afib but when pt arrived in ER, HR was normal. States K+ was low and is now taking potassium po bid. Medications and supplements reviewed No changes in health, diet, or supplements, Denies any signs and symptoms of bleeding or bruising or clotting. Bleeding, bruising, clotting discussed Nutritional guidance given to avoid greens today Dose: 5mg X 6 days and 2.5mg X 1 day F/U INR: 1 week Patient verbalizes understanding of instructions given Anti-Coag Initial Assessment Social Hx Patient Tobacco Use Status: Never used Tobacco Tobacco use type: Cigarette alcohol intake: current Alcohol intake frequency: holidays/special occasions only Coding Level of Care Code Est Patient Level 1 Diagnoses Current use of anticoagulant therapy Z79.01 Results AMB INR Fingerstick AMB INR Fingerstick 2.2 Last Edit by Clover Granados RN on 01/23/25 13:35 interface delay Assessment & Plan Assessment & Plan (1) Current use of anticoagulant therapy: Code(s): Z79.01 - snf (current) use of 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 Medications: New losartan-hydrochlorothiazide 100-25 mg 1 tab PO DAILY Discontinued losartan Discontinued Reason: Patient no longer taking 100 mg PO DAILY 90 days 90 tabs 1RF potassium chloride ER Discontinued Reason: Duplicate 10 mEq PO DAILY 7 days 7 caps 0RF
--- OUTSIDE RECORDS SUMMARY | 2025-01-23 14:17 | XMS_ITS | Clinical Summary ---
Author Organization [facility] Address [address] [place] [address] Phone Care Team Providers Care Mortgage Manager Name Role Phone Unavailable Primary Care [...]
== END 2025-01-23 13:44 | disposition home or self-care (01) ==
LOC: HO.ACS 13:03
PROVIDERS: PCP Internal Medicine; Visit Provider Internal Medicine Medical Oncology
DX: Z79.01 Long term (current) use of anticoagulants (principal)

== ENCOUNTER → 2025-01-23 13:03 | Outpatient (BNVA) | payer MEDICARE, MEDICAID, SELFPAY | PROVIDERS: PCP Internal Medicine; Visit Provider Internal Medicine Medical Oncology | DX: Z51.81 Encounter for therapeutic drug level monitoring (principal); Z79.01 Long term (current) use of anticoagulants | CPT/HCPCS: 85610; 99211 ==

== ENCOUNTER 2025-01-25 08:12 | Outpatient (AMB) | payer MEDICARE, MEDICAID, SELFPAY ==
--- OUTSIDE RECORDS SUMMARY | 2025-01-25 08:30 | XMS_ITS | Clinical Summary ---
Author Organization [facility] Address [address] [place] [address] Phone Care Team Providers Care Carroting Machine Offbearer Name Role Phone Unavailable Primary Care Provider [...]
--- NOTE | 2025-01-25 10:13 | A.OFFVIS_ITS ---
VS Expanded 01/25/25 10:36 Height 5 ft 3 in Weight 225 lb 6 oz BMI 39.9 Body Fat % 46 Body Fat Mass 103.8 Fat Free Mass 121.6 Visceral Fat Rating 17 Body Water % 37.9 Body Water Mass 85.6 Basal Metabolic Rate/Score 1,694 Intake Visit Reasons: [employer] [facility] BMI 41.3 Allergies shrimp (SHRIMP) Allergy (Mild, Verified 01/25/25 10:13) HIVES diltiazem Adverse Reaction (Severe, Uncoded 01/25/25 10:13) feet pain, swelling Medication List - Last Reconciled 01/25/25 by Rigoberto Canales MD atorvastatin 40 mg PO DAILY blood sugar diagnostic (Accu-Chek Guide test strips) As directed 2 times per day blood-glucose meter TEST 2 TIMES DAILY blood-glucose meter (Accu-Chek Guide Glucose Meter) As directed cephalexin 500 mg PO BID 7 days cholecalciferol (vitamin D3) 1,000 units PO DAILY cyanocobalamin (vitamin B-12) 1,000 mcg PO DAILY esomeprazole magnesium (Nexium) 20 mg PO DAILY furosemide (Lasix) 80 mg PO BID 90 days glipizide 5 mg PO DAILY lancets (Accu-Chek Softclix Lancets) Use 1 Lancet once a day lancing device ACCU-CHECK DARLINE DEVICE lancing device (Adjustable Lancing Device) As directed losartan-hydrochlorothiazide 100-25 mg 1 tab PO DAILY [Neuriva brain health supplent orally m w f; ] phenytoin sodium extended 200 mg (2 x 100 mg) PO BID 90 days potassium chloride ER 10 mEq PO BID tizanidine 4 mg PO Q8H PRN vitamins A,C,N-ksoc-vjxpuq (PreserVision AREDS) 159 % PO BID warfarin 5 mg See Protocol PO DAILY HPI HPI [employer] MWL BMI 41.3: Details: Start time: 10.06am, End time: 10.56am ?I spent 45 minutes speaking with the patient on the phone plus an additional 5 minutes reviewing and updating records for a total of 50 minutes HPI Comments Details: Previous weight loss efforts: self diets, exercise, prescribed medication Wakes up: 6am, Sleeps: 11.30pm Breakfast: 8.30am (eggs with toast) Lunch: skips often Dinner: 5pm (pasta, salad, chicken) Snacks: 12-1pm (watermelon), 7-8pm (yogurt and banana) Exercise: stepper Beverages: Coffee: (4 cups/d with skim milk), Tea: none, Soda: none, Juice: (Cranberry juice zero calories), ETOH: 1/month [facility] Medical History Morbid obesity with BMI of 40.0-44.9, adult Epilepsy GERD without esophagitis Vitamin D deficiency Mixed hyperlipidemia Essential hypertension Diabetes mellitus PAF (paroxysmal atrial fibrillation) Atrial fibrillation Factor V Leiden DVT (deep venous thrombosis) Hyperlipidemia Hypertension Diabetes mellitus with coincident hypertension Surgical History History of lumpectomy of right breast History of appendectomy History of cholecystectomy Family History Father Asthma Mother Diabetes Hypertension Colon cancer Other Substance use disorder Social History Household Members: None Housing: Apartment Do you presently have visiting nurse or other home services: No Alcohol intake: current Alcohol intake frequency: holidays/special occasions only Patient Tobacco Use Status: Never used Tobacco Tobacco use type: Cigarette e-Cigarette/Vaping Use: Never Used Second Hand Smoke Exposure: No Advance Directives Date on File: 02/03/23 service: No Current occupational status: employed Cognitive needs: No Hearing needs: No Vision needs: No Telehealth Telehealth Telehealth Platform: Telephone Location of provider rendering services: practice address Location of patient: address on file Patient Identification confirmed using: Name, : Yes Telehealth method: voice only Patient verbally consented to treatment: Yes Patient verbally consented to billing insurance company: Yes Patient informed of any privacy concerns related to visit: Yes Minutes spent on Phone/Video with Pt.: 50 Assessment & Plan Assessment & Plan (1) Morbid obesity with BMI of 40.0-44.9, adult: Code(s): E66.01 - Morbid (severe) obesity due to excess calories; Z68.41 - Body mass index [BMI] 40.0-44.9, adult Category: Medical Plan: 1. I ordered a medication to help you with the weight loss which is called Anahi. My office will try to authorize it. Please let me know when you receive it so I can give you a meal and exercise plan. Common side effects include nausea, vomiting, constipation, diarrhea, abdominal pain. Please let me know if you develop any of these symptoms. 2.???Nutritional counseling. Start with one premade PREMIER protein (buy at [employer] or [employer]) shake (mix 4oz of Premier mixed with 4oz low fat unsweetened almond milk each) at 7am-9am, one protein bar (Fit Crunch protein bar, buy at [employer], or [employer]) at 10am-12pm, another premade PREMIER protein shake (mix 4oz of Premier mixed with 4oz low fat unsweetened almond milk each) at 1pm-3pm, another [employer]unch protein bar,? dinner at 7pm (8 forks of protein and 8 forks of salad/vegetables) and another PREMIER protein shake (mix 4oz of Premier mixed with 4oz low fat unsweetened almond milk each) at 9pm-11pm So you do 3 protein shakes, 2 protein bars and one meal per day. Meal to include lean meat (beef, fish, pork, turkey, chicken), or danish yogurt, or egg whites, or beans with a salad with olive oil and fruits (berries, pears, apples, kiwi). Avoid salt, breads, potatoes, rice, pasta, desserts. 3. Each shake would be drunk slowly, like coffee in a period of 2 hours. 4. Cut each bar in 4 pieces and eat each piece in 30min ?to make each bar last 2 hours. 5. I emphasized the importance of measuring accurately the food portion and measure it when serving the food in plate 6. The meal portions include 8 full-size forks of meat and 8 full-size forks of salad. You always eat the meat portion but you can replace up to 4 forks for salad/vegetables with rice, potatoes or pasta, or a fruit ?if you like. The less you do it the better weight loss will be. 7. One full-size fork is what it can be scooped on the fork without falling aside and not what can be bit with the fork. Use regular forks like those you find in a typical restaurant. 8.? Please buy the body composition scale we discussed and send me weight measurements as soon as possible and then once a week. Always include your diet and exercise plan. 9. The best choice would be to purchase a stationary bike at home that can track calories. If you get one, please start stationary bike at a resistance level of 4.0 Increase level by 1.0 every 3 min to a max level of 10.0. Stay at this level for 3 min and then return to level 4.0 and repeat same steps until 300 calories are burned. Goal is to burn 2000 calories per week on exercise 10. Goal is to lose at least 1.5-2lbs per week 11. Goal to lose at least 10% of your weight, which is about 25lbs. Minimum weight goal: 200lbs 12. Please follow the diet plan exactly without any change. If you don't like something about the plan or you feel hungry you need to communicate with me so I can help you revise the plan. You should not change the plan yourself Medications: New tirzepatide (Mounjaro) for 4 weeks 2.5 mg (0.5 mL) subcut QWEEK 2 mL 0RF E11.9 - Type 2 diabetes mellitus without complications, E66.01 - Morbid (severe) obesity due to excess calories, I10 - Essential (primary) hypertension, Z68.41 - Body mass index [BMI] 40.0-44.9, adult
[2025-01-25 10:36] VITALS: BMI 39.9
== END 2025-01-25 10:57 | disposition home or self-care (01) ==
LOC: HO.HBS 08:12
PROVIDERS: PCP Internal Medicine; Visit Provider Surgery
DX: E66.9 Obesity, unspecified (principal); Z68.39 Body mass index [BMI] 39.0-39.9, adult
CPT/HCPCS: 99204

== ENCOUNTER 2025-01-30 13:02 | Outpatient (AMB) | payer MEDICARE, MEDICAID, SELFPAY ==
[2025-01-30 13:17] LABS: Prothrombin Time Whole Bld POC 28.0 sec (11.1-13.5); ~PT, ~INR - Anti Coag Clinic 2.3 (0.9-1.1)
--- NOTE | 2025-01-30 13:28 | MHC.OFFVISCO ---
Intake Intake Visit Reasons: Anticoagulation Allergies shrimp (SHRIMP) Allergy (Mild, Verified 01/30/25 13:07) HIVES diltiazem Adverse Reaction (Severe, Uncoded 01/30/25 13:07) feet pain, swelling Medication List - Last Reconciled 01/30/25 by Clover Granados, RN atorvastatin 40 mg PO DAILY blood sugar diagnostic (Accu-Chek Guide test strips) As directed 2 times per day blood-glucose meter TEST 2 TIMES DAILY blood-glucose meter (Accu-Chek Guide Glucose Meter) As directed cephalexin 500 mg PO BID 7 days cholecalciferol (vitamin D3) 1,000 units PO DAILY cyanocobalamin (vitamin B-12) 1,000 mcg PO DAILY esomeprazole magnesium (Nexium) 20 mg PO DAILY furosemide (Lasix) 80 mg PO BID 90 days glipizide 5 mg PO DAILY lancets (Accu-Chek Softclix Lancets) Use 1 Lancet once a day lancing device ACCU-CHECK DARLINE DEVICE lancing device (Adjustable Lancing Device) As directed losartan-hydrochlorothiazide 100-25 mg 1 tab PO DAILY [Neuriva brain health supplent orally m w f; ] phenytoin sodium extended 200 mg (2 x 100 mg) PO BID 90 days potassium chloride ER 10 mEq PO BID tirzepatide (Mounjaro) 2.5 mg (0.5 mL) subcut QWEEK tizanidine 4 mg PO Q8H PRN vitamins A,C,Y-rnap-hbdjuf (PreserVision AREDS) 159 % PO BID warfarin 5 mg See Protocol PO DAILY Nursing Note INR: 2.3 in therapeutic range of 2-3 Medications and supplements reviewed Pt will be starting Mounjaro tomorrow 01/31/25. [facility], Dr Cline. States she will be having one protein shake a day. No changes in health, diet, medications, or supplements, Denies any signs and symptoms of bleeding or bruising or clotting. Bleeding, bruising, clotting discussed Nutritional guidance given to increase her reds by 2 servings a week if she is increasing her protein. We will be seeing pt weekly to monitor INR. Dose: 5mg X 6 days and 2.5mg X 1 day (Sat) F/U INR: 1 week Patient verbalizes understanding of instructions given Anti-Coag Initial Assessment Social Hx Patient Tobacco Use Status: Never used Tobacco Tobacco use type: Cigarette alcohol intake: current Alcohol intake frequency: holidays/special occasions only Coding Level of Care Code Est Patient Level 1 Diagnoses Current use of anticoagulant therapy Z79.01 Assessment & Plan Assessment & Plan (1) Current use of anticoagulant therapy: Code(s): Z79.01 - meterman (current) use of 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
--- OUTSIDE RECORDS SUMMARY | 2025-01-30 15:22 | XMS_ITS | Clinical Summary ---
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
== END 2025-01-30 13:34 | disposition home or self-care (01) ==
LOC: HO.ACS 13:02
PROVIDERS: PCP Internal Medicine; Visit Provider Internal Medicine Medical Oncology
DX: Z79.01 Long term (current) use of anticoagulants (principal)

== ENCOUNTER → 2025-01-30 13:02 | Outpatient (BNVA) | payer MEDICARE, MEDICAID, SELFPAY | PROVIDERS: PCP Internal Medicine; Visit Provider Internal Medicine Medical Oncology | DX: Z51.81 Encounter for therapeutic drug level monitoring (principal); Z79.01 Long term (current) use of anticoagulants | CPT/HCPCS: 85610; 99211 ==

== ENCOUNTER 2025-02-07 13:04 | Outpatient (AMB) | payer MEDICARE, MEDICAID, SELFPAY ==
[2025-02-07 13:14] LABS: Prothrombin Time Whole Bld POC 23.9 sec (11.1-13.5); ~PT, ~INR - Anti Coag Clinic 2.0 (0.9-1.1)
--- NOTE | 2025-02-07 13:24 | MHC.OFFVISCO ---
Intake Intake Visit Reasons: Anticoagulation Allergies shrimp (SHRIMP) Allergy (Mild, Verified 02/07/25 13:06) HIVES diltiazem Adverse Reaction (Severe, Uncoded 02/07/25 13:06) feet pain, swelling Medication List - Last Reconciled 02/07/25 by Lubna Layne RN atorvastatin 40 mg PO DAILY blood sugar diagnostic (Accu-Chek Guide test strips) As directed 2 times per day blood-glucose meter TEST 2 TIMES DAILY blood-glucose meter (Accu-Chek Guide Glucose Meter) As directed cholecalciferol (vitamin D3) 1,000 units PO DAILY cyanocobalamin (vitamin B-12) 1,000 mcg PO DAILY esomeprazole magnesium (Nexium) 20 mg PO DAILY furosemide (Lasix) 80 mg PO BID 90 days glipizide 5 mg PO DAILY lancets (Accu-Chek Softclix Lancets) Use 1 Lancet once a day lancing device ACCU-CHECK DARLINE DEVICE lancing device (Adjustable Lancing Device) As directed losartan-hydrochlorothiazide 100-25 mg 1 tab PO DAILY phenytoin sodium extended 200 mg (2 x 100 mg) PO BID 90 days potassium chloride ER 10 mEq PO BID tirzepatide (Mounjaro) 2.5 mg (0.5 mL) subcut QWEEK tizanidine 4 mg PO Q8H PRN vitamins A,C,O-lcrk-xkuywi (PreserVision AREDS) 159 % PO BID warfarin 5 mg See Protocol PO DAILY Nursing Note INR: 2.0 in therapeutic range Medications and supplements reviewed *Pt on weight loss program taking monjaro inj weekly, drinking protein shakes TID, bar bid, 1 meal of protein and a vegetable, states she feels well and energetic. She can fit into more of her clothes now. Denies any signs and symptoms of bleeding or bruising or clotting. Bleeding, bruising, clotting discussed Nutritional guidance given - follow plan make sure to include orange and red vegetables with greens Dose: increase weekly dose to 5mg daily to keep INR above 2.0 F/U INR: 1 week Patient verbalizes understanding of instructions given Anti-Coag Initial Assessment Social Hx Patient Tobacco Use Status: Never used Tobacco Tobacco use type: Cigarette alcohol intake: current Alcohol intake frequency: holidays/special occasions only Coding Level of Care Code Est Patient Level 1 Diagnoses Current use of anticoagulant therapy Z79.01 Time Spent (min) 15 Assessment & Plan Assessment & Plan (1) Current use of anticoagulant therapy: Code(s): Z79.01 - watermelon inspector (current) use of 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
--- OUTSIDE RECORDS SUMMARY | 2025-02-07 15:45 | XMS_ITS | Clinical Summary ---
Author Organization [facility] Address [address] [place] [address] Phone Care Team Providers Care Carbonation Equipment Operator Name Role Phone Unavailable Primary Care [...]
== END 2025-02-07 13:28 | disposition home or self-care (01) ==
LOC: HO.ACS 13:04
PROVIDERS: PCP Internal Medicine; Visit Provider Internal Medicine Medical Oncology
DX: Z79.01 Long term (current) use of anticoagulants (principal)

== ENCOUNTER → 2025-02-07 13:04 | Outpatient (BNVA) | payer MEDICARE, MEDICAID, SELFPAY | PROVIDERS: PCP Internal Medicine; Visit Provider Internal Medicine Medical Oncology | DX: Z51.81 Encounter for therapeutic drug level monitoring (principal); Z79.01 Long term (current) use of anticoagulants | CPT/HCPCS: 85610; 99211 ==

== ENCOUNTER 2025-02-14 10:22 | Outpatient (AMB) | payer MEDICARE, MEDICAID, SELFPAY ==
[2025-02-14 10:31] LABS: Prothrombin Time Whole Bld POC 26.5 sec (11.1-13.5); ~PT, ~INR - Anti Coag Clinic 2.2 (0.9-1.1)
--- NOTE | 2025-02-14 10:37 | MHC.OFFVISCO ---
Intake Intake Visit Reasons: Anticoagulation Allergies shrimp (SHRIMP) Allergy (Mild, Verified 02/14/25 10:23) HIVES diltiazem Adverse Reaction (Severe, Uncoded 02/14/25 10:23) feet pain, swelling Medication List - Last Reconciled 02/14/25 by Clover Granados, RN atorvastatin 40 mg PO DAILY blood sugar diagnostic (Accu-Chek Guide test strips) As directed 2 times per day blood-glucose meter TEST 2 TIMES DAILY blood-glucose meter (Accu-Chek Guide Glucose Meter) As directed cholecalciferol (vitamin D3) 1,000 units PO DAILY cyanocobalamin (vitamin B-12) 1,000 mcg PO DAILY esomeprazole magnesium (Nexium) 20 mg PO DAILY furosemide (Lasix) 80 mg PO BID 90 days glipizide 5 mg PO DAILY lancets (Accu-Chek Softclix Lancets) Use 1 Lancet once a day lancing device ACCU-CHECK DARLINE DEVICE lancing device (Adjustable Lancing Device) As directed losartan-hydrochlorothiazide 100-25 mg 1 tab PO DAILY phenytoin sodium extended 200 mg (2 x 100 mg) PO BID 90 days potassium chloride ER 10 mEq PO BID tirzepatide (Mounjaro) 2.5 mg (0.5 mL) subcut QWEEK tizanidine 4 mg PO Q8H PRN vitamins A,C,D-ojqo-pssbbf (PreserVision AREDS) 159 % PO BID warfarin 5 mg See Protocol PO DAILY Nursing Note INR: 2.2 in therapeutic range of 2-3 Medications and supplements reviewed. No changes. Denies any signs and symptoms of bleeding or bruising or clotting. Bleeding, bruising, clotting discussed Pt following [facility] plan by [facility] Dose: 5mg daily F/U INR: 1 week Patient verbalizes understanding of instructions given Anti-Coag Initial Assessment Social Hx Patient Tobacco Use Status: Never used Tobacco Tobacco use type: Cigarette alcohol intake: current Alcohol intake frequency: holidays/special occasions only Coding Level of Care Code Est Patient Level 1 Diagnoses Current use of anticoagulant therapy Z79.01 Assessment & Plan Assessment & Plan (1) Current use of anticoagulant therapy: Code(s): Z79.01 - longterm (current) use of 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
== END 2025-02-14 10:41 | disposition home or self-care (01) ==
LOC: HO.ACS 10:22
PROVIDERS: PCP Internal Medicine; Visit Provider Internal Medicine Medical Oncology
DX: Z79.01 Long term (current) use of anticoagulants (principal)

== ENCOUNTER → 2025-02-14 10:22 | Outpatient (BNVA) | payer MEDICARE, MEDICAID, SELFPAY | PROVIDERS: PCP Internal Medicine; Visit Provider Internal Medicine Medical Oncology | DX: Z86.718 Personal history of other venous thrombosis and embolism (principal); Z51.81 Encounter for therapeutic drug level monitoring; Z79.01 Long term (current) use of anticoagulants | CPT/HCPCS: 85610; 99211 ==

== ENCOUNTER 2025-02-16 09:01 | Emergency (ER) | payer MEDICARE, MEDICAID, SELFPAY ==
[2025-02-16 09:09] VITALS: BP 145/56; PULSE 71; RESP 18; TEMP 36.4; O2SAT 96; BMI 41.4
[2025-02-16 09:13] VITALS: BP 145/56; PULSE 71; RESP 18; TEMP 36.4; O2SAT 96
--- NOTE | 2025-02-16 09:15 | ED.EXTPRO ---
HPI - Extremity Problem General Chief complaint: Extremity Injury, Upper Stated complaint: L arm pain, UTI? Time Seen by Provider: 02/16/25 09:09 Source: patient, RN notes reviewed and old records reviewed Mode of arrival: ambulatory Limitations: no limitations History of Present Illness ED Provider: Gayatri HPI Narrative: Patient is a 79-year-old female history of DVT currently on warfarin, obesity, epilepsy, GERD, HLD, HTN, dm, factor 5 Leiden, paroxysmal AFib, asthma presenting to emergency department with complaint of left arm pain just proximal to elbow after carrying multiple groceries yesterday. She denies any popping sensation. States this has happened previously after carrying groceries. Use Tylenol with little relief at home. Denies any weakness, numbness, tingling. Also reports dysuria and states ?I am sure I have a UTI. ? When asked to specify she reports burning vaginal pain with urination. Related Data Home Medications ?Medication ?Instructions ?Recorded ?Confirmed tizanidine 4 mg tablet 4 mg PO Q8H PRN muscle spasticity 03/06/23 02/14/25 vitamins A,C,F-pvwu-bqpzqf 159 % PO BID 09/15/24 02/14/25 [PreserVision AREDS] cholecalciferol (vitamin D3) 1,000 unit PO DAILY 11/11/24 02/14/25 losartan 100 1 tab PO DAILY 01/23/25 02/14/25 mg-hydrochlorothiazide 25 mg tablet Previous Rx's ?Medication ?Instructions ?Recorded lancing device #1 ea 02/10/20 blood-glucose meter #1 ea 09/27/21 cyanocobalamin (vitamin B-12) 1,000 mcg PO DAILY #90 caps 01/02/24 1,000 mcg capsule warfarin 5 mg tablet 5 mg PO DAILY #90 tabs 10/05/24 glipizide 5 mg tablet 5 mg PO DAILY #100 tabs 10/31/24 blood sugar diagnostic (Accu-Chek #100 ea 11/11/24 Guide test strips) blood-glucose meter (Accu-Chek #1 ea 11/11/24 Guide Glucose Meter) lancing device (Adjustable Lancing #1 ea 11/11/24 Device) phenytoin sodium extended 100 mg 200 mg (2 x 100 mg) PO BID 90 days 11/14/24 capsule #360 caps lancets (Accu-Chek Softclix #100 ea 11/15/24 Lancets) furosemide 80 mg tablet (Lasix) 80 mg PO BID 90 days #180 tabs 11/30/24 esomeprazole magnesium 20 mg 20 mg PO DAILY #90 caps 01/24/25 capsule,delayed release (Nexium) tirzepatide 2.5 mg/0.5 mL 2.5 mg (0.5 mL) subcut QWEEK #2 mL 01/25/25 subcutaneous pen injector (Mounjaro) atorvastatin 40 mg tablet 40 mg PO DAILY #90 tabs 01/26/25 potassium chloride 10 mEq 10 meq PO BID #14 caps 02/08/25 capsule,extended release tirzepatide 5 mg/0.5 mL 5 mg (0.5 mL) subcut QWEEK #2 mL 02/14/25 subcutaneous pen injector (Mounjaro) clotrimazole 1 % topical cream 1 appl topical BID 2 weeks #15 02/16/25 grams diclofenac sodium 1 % topical gel 2 g topical QID #50 grams 02/16/25 lidocaine 5 % topical patch 1 patch topical DAILY #15 ea 02/16/25 Allergies Allergy/AdvReac Type Severity Reaction Status Date / Time shrimp (SHRIMP) Allergy Mild HIVES Verified 02/16/25 09:13 diltiazem AdvReac Severe feet pain, Uncoded 02/16/25 09:13 swelling Review of Systems Review of Systems: as per hpi Yes all other systems are reviewed and are negative Constitutional: Constitutional: Reports as per HPI [facility] Past Medical History Medical History (Updated 02/16/25 @ 11:44 by Waleska Mendieta NP) BMI 37.0-37.9, adult Obesity Morbid obesity with BMI of 40.0-44.9, adult Epilepsy GERD without esophagitis Vitamin D deficiency Mixed hyperlipidemia Essential hypertension Diabetes mellitus PAF (paroxysmal atrial fibrillation) Atrial fibrillation Factor V Leiden DVT (deep venous thrombosis) Hyperlipidemia Hypertension Diabetes mellitus with coincident hypertension Surgical History History of lumpectomy of right breast History of appendectomy History of cholecystectomy Family History Family History Father Asthma Mother Diabetes Hypertension Colon cancer Other Substance use disorder Social History Social History Household Members: None Housing: Apartment Do you presently have visiting nurse or other home services: No Alcohol intake: current Alcohol intake frequency: holidays/special occasions only Patient Tobacco Use Status: Never used Tobacco Tobacco use type: Cigarette Smoked in Last 30 Days: No e-Cigarette/Vaping Use: Never Used Second Hand Smoke Exposure: No Use of substances other than those prescribed or required for medical reasons: No Advance Directives: Yes Advance Directives on File: Yes Advance Directives Date on File: 02/03/23 Do you have a plan to hurt others: No Plan service: No Current occupational status: employed Cognitive needs: No Hearing needs: No Vision needs: No Physical Exam Vital Signs: Vital Signs: Last Vital Signs Temp 97.5 F 02/16/25 09:13 Pulse 71 02/16/25 09:13 Resp 18 02/16/25 09:13 BP 145/56 H 02/16/25 09:13 Pulse Ox 96 02/16/25 09:13 O2 Del Method Room Air 02/16/25 09:13 BMI result Body Mass Index 41.4 Vital signs have been reviewed and appear to be correct. Blood pressure normal. Heart rate normal. Respiratory rate normal. Temperature normal. Oxygen saturation normal. Const: General: cooperative, healthy appearing and no acute distress Orientation/consciousness: oriented to person, oriented to place, oriented to time and patient oriented x3 Limitations: no limitations HEENT: Head: Yes normocephalic and Yes atraumatic Ears: external ears normal General nose exam: Normal external nose present Face and sinus: Yes face symmetric Mouth: oropharynx normal and moist mucous membranes Throat: Yes uvula midline Eyes: Pupils: Equal, round and reactive pupils present Neck: Neck: Yes normal visual inspection and Yes supple Resp: Effort & Inspection: normal respiratory effort and able to speak in complete sentences Auscultation: clear to auscultation bilaterally Cardio: Rate: regular rate Rhythm: regular rhythm Heart sounds: S1 normal heart sound present and S2 normal heart sound present GI: Palpation (GI): Soft to palpation and nontender Auscultation: normoactive bowel sounds : General: Yes no CVA tenderness Back/Spine/Pelvis: Back: no CVA tenderness Skin: General skin exam: elasticity normal and turgor normal Neuro: General: oriented to person, oriented to place, oriented to time, patient oriented x3, moves all extremities, no focal motor deficits and CN's II-XI intact bilaterally Cranial nerves: Yes Equal, round and reactive pupils present Cognition (Neuro): normal cognition Extrem: General: Yes full ROM, Yes no pedal edema and Yes no calf tenderness Left upper extremity: normal to inspection, full ROM, normal capillary refill, shoulder/upper arm Details: tenderness Location: over the biceps tendon and normal ROM and hand Details: vascular exam Details: radial pulse present, ulnar pulse present and normal capillary refill and normal ROM of fingers Psych: Mental Status: mental status grossly normal Affect: normal affect Thought process: Normal thought process present Medications Administered Discontinued Medications Generic Name Dose Route Start Last Admin Trade Name Freq PRN Reason Stop Dose Admin Oxycodone HCl 5 mg 02/16/25 09:28 02/16/25 09:49 Oxycodone Hcl Immed Release 5 Mg Tablet PO 02/16/25 09:29 5 mg ONCE ONE Administration Medical Decision Making Medical Decision Making [facility] Narrative: Patient is a 79-year-old female history of DVT currently on warfarin, obesity, epilepsy, GERD, HLD, HTN, dm, factor 5 Leiden, paroxysmal AFib, asthma presenting to emergency department with complaint of left arm pain just proximal to elbow after carrying multiple groceries yesterday. On exam patient is awake, A+Ox3, VS WNL, afebrile, normal neurological exam without focal deficits, physical exam findings as above. Given reported symptoms and physical exam findings, initial differential includes but is not limited to biceps muscle strain, minor tear, UTI, vulvovaginal candidiasis. Do not suspect fracture as no traumatic injury, no bony tenderness. UA is without evidence of infection. Patient reports improved pain with oxycodone. Feel patient is stable for discharge at this time. Will treat for vulvovaginal candidiasis with clotrimazole, will send prescriptions for topical lidocaine patches and diclofenac gel for left arm pain. Will refer to orthopedics for follow up. Return precautions discussed. Patient verbalized understanding of and agreement with plan. Differential Diagnosis Differential Diagnoses: The differential diagnosis associated with the presentation includes As per MDM Admission/Observation Consideration of admission/observation: Escalation of care including admission/observation considered Patient would have been admitted to the hospital and transferred to appropriate facility had their clinical presentation warranted hospital admission. Lab Data [facility] Lab Attestation statement: I reviewed the patient's lab results. as per [facility] Labs: Lab Results 02/16/25 Range/Units 09:50 Urine Color Yellow Urine Appearance Clear Urine pH 6.0 (5.0-9.0) Ur Specific [place] 1.010 (1.005-1.025) Urine Protein Negative (Neg-Trace) mg/dL Urine Glucose (UA) Negative (Negative) mg/dL Urine Ketones Negative (Negative) mg/dL Urine Blood Negative (Negative) Urine Nitrite Negative (Negative) Ur Leukocyte Esterase Negative (Negative) External Record Review External record reviewed: Inpatient record, Office record and Outpatient record Prescription Management I considered prescription management with: Pain Medication and Other Discharge Plan Discharge Clinical Impression: Vulvovaginal candidiasis Biceps muscle strain Qualifiers: Encounter type: initial encounter Laterality: left Qualified Code(s): S46.212A - Strain of muscle, fascia and tendon of other parts of biceps, left arm, initial encounter Patient Disposition: Home, Self-Care Instructions: Muscle Strain (DC), Yeast Infection (ED) Additional Instructions: You were evaluated in the emergency department today for left arm pain after heavy lifting. Your physical exam findings are consistent with a muscle strain. We recommend that you did not do any heavy lifting with your left arm until your pain improves. You have been prescribed topical lidocaine patches as well as diclofenac gel for your pain. The lidocaine patches can be worn on for 12 hours, then off for 12 hours. Do not apply heat directly over the patches. While the patches are off, you can use the diclofenac gel for pain. You are being referred to Orthopedics for any ongoing pain or new symptoms. Follow up with them as needed. You are also being treated with an antifungal cream for a vaginal yeast infection. Use this as prescribed. Follow up with your primary care provider this week. Return to the emergency department for any new or concerning symptoms. Prescriptions: New lidocaine 5 % adhesive patch,medicated 1 patch topical DAILY Qty: 15 0RF Rx Instructions: leave on most painful area for up to 12 hrs clotrimazole 1 % cream 1 appl topical BID 14 Days Qty: 15 0RF diclofenac sodium 1 % gel 2 g topical QID Qty: 50 0RF Rx Instructions: apply to single elbow, wrist or hand; for hand includes palm/fingers/back of hand No Action (DME) lancing device Misc See Rx Instructions .ROUTE .MEDSUPPLY Qty: 1 8RF Rx Instructions: ACCU-CHECK DARLINE DEVICE cyanocobalamin (vitamin B-12) 1,000 mcg capsule 1,000 mcg PO DAILY Qty: 90 0RF warfarin 5 mg tablet 5 mg PO DAILY Qty: 90 2RF Protocol: Dose Management Condition: Thursday (Week One) Dose/Route: 5 mg Instruction: 1 x 5 mg tablet Condition: Thursday Dose/Route: 5 mg Instruction: 1 x 5 mg tablet Condition: Thursday Dose/Route: 5 mg Instruction: 1 x 5 mg tablet Condition: Thursday Dose/Route: 5 mg Instruction: 1 x 5 mg tablet Condition: Dose/Route: 5 mg Instruction: 1 x 5 mg tablet Condition: Thursday Dose/Route: 5 mg Instruction: 1 x 5 mg tablet Condition: Thursday Dose/Route: 5 mg Instruction: 1 x 5 mg tablet Condition: Thursday (Week Two) Dose/Route: 5 mg Instruction: 1 x 5 mg tablet Condition: Thursday Dose/Route: 5 mg Instruction: 1 x 5 mg tablet Condition: Thursday Dose/Route: 5 mg Instruction: 1 x 5 mg tablet Condition: Thursday Dose/Route: 5 mg Instruction: 1 x 5 mg tablet Condition: Dose/Route: 5 mg Instruction: 1 x 5 mg tablet Condition: Thursday Dose/Route: 5 mg Instruction: 1 x 5 mg tablet Condition: Thursday Dose/Route: 5 mg Instruction: 1 x 5 mg tablet Protocol Text: Adjustment Start Date: Thursday02/14/25 INR Value: 2.2 INR Date: 02/14/25 Recheck Date: 02/21/25 glipizide 5 mg tablet 5 mg PO DAILY Qty: 100 2RF phenytoin sodium extended 100 mg capsule 200 mg PO BID 90 Days Qty: 360 3RF (DME) lancets [Accu-Chek Softclix Lancets] Misc See Rx Instructions .Route Qty: 100 3RF Rx Instructions: Use 1 Lancet once a day esomeprazole magnesium [Nexium] 20 mg capsule,delayed release(DR/EC) 20 mg PO DAILY Qty: 90 2RF atorvastatin 40 mg tablet 40 mg PO DAILY Qty: 90 3RF potassium chloride 10 mEq capsule, extended release 10 meq PO BID Qty: 14 0RF Mounjaro 5 mg/0.5 mL pen injector 5 mg subcut QWEEK Qty: 2 0RF (DME) blood-glucose meter [facility] See Rx Instructions .ROUTE .MEDSUPPLY Qty: 1 0RF Rx Instructions: TEST 2 TIMES DAILY tizanidine 4 mg tablet 4 mg PO Q8H PRN (Reason: muscle spasticity) vitamins A,C,O-[id number]-ngkmpd [PreserVision AREDS] 159 % PO BID Patient Comments: 2 TABS DAILY cholecalciferol (vitamin D3) 1,000 unit PO DAILY Patient Comments: 1 TAB DAILY Mounjaro 2.5 mg/0.5 mL pen injector 2.5 mg subcut QWEEK Qty: 2 0RF Rx Instructions: for 4 weeks losartan-hydrochlorothiazide 100-25 mg tablet 1 tab PO DAILY furosemide [Lasix] 80 mg tablet 80 mg PO BID 90 Days Qty: 180 3RF (DME) Accu-Chek Guide test strips Strip See Rx Instructions .Route Qty: 100 6RF Rx Instructions: As directed 2 times per day (DME) blood-glucose meter [Accu-Chek Guide Glucose Meter] [facility] See Rx Instructions .Route Qty: 1 0RF Rx Instructions: As directed (DME) lancing device [Adjustable Lancing Device] [facility] See Rx Instructions .Route Qty: 1 0RF Rx Instructions: As directed [place] [facility] [place] [facility] [Provider Group] Clinical Impression: Biceps muscle strain Print Language: Welsh
--- NOTE | 2025-02-16 09:16 | PC.NURSE ---
79 F presents to ED left arm pain 10/10 since yesterday when she was carrying bags. Pain from left bicep to left forearm. A+Ox4, calm, cooperative. CSMs present to Left hand. Pt also c/o burning with urination x 2 weeks, believes she has UTI. RR even and unlabored. Pt denies CP or SOB. Calm, cooperative.
[2025-02-16] MEDS: oxyCODONE HCl Immed Release 5 MG TABLET PO (09:49)
[2025-02-16 10:00] LABS: Appearance Urine Clear; Glucose Urine UA Negative (Negative); PH 6.0 (5.0-9.0); Specific Gravity - Urine 1.010 (1.005-1.025)
[2025-02-16 12:04] VITALS: BP 109/58; PULSE 66; RESP 18; TEMP -17.7; TEMP 0; O2SAT 98
--- OUTSIDE RECORDS SUMMARY | 2025-02-16 12:11 | XMS_ITS | Clinical Summary ---
Author Organization [facility] Address [address] [place] [address] Phone Care Team Providers Care Process Eng Name Role Phone Unavailable Primary Care Provider [...]
== END 2025-02-16 12:05 | disposition home or self-care (01) ==
PROVIDERS: Registered Nurse Emergency; Emergency Provider Emergency Medicine; PCP Internal Medicine
DX: B37.31 Acute candidiasis of vulva and vagina (principal); I10 Essential (primary) hypertension; E11.9 Type 2 diabetes mellitus without complications; E78.5 Hyperlipidemia, unspecified; I48.0 Paroxysmal atrial fibrillation; Z86.718 Personal history of other venous thrombosis and embolism; Z79.01 Long term (current) use of anticoagulants
CPT/HCPCS: 81003; 99283; 99284

== ENCOUNTER 2025-02-22 10:48 | Outpatient (AMB) | payer MEDICARE, MEDICAID, SELFPAY ==
--- NOTE | 2025-02-22 10:58 | MHC.OFFVISCO ---
Intake Intake Visit Reasons: Anticoagulation Allergies shrimp (SHRIMP) Allergy (Mild, Verified 02/22/25 10:52) HIVES diltiazem Adverse Reaction (Severe, Uncoded 02/16/25 09:13) feet pain, swelling Medication List - Last Reconciled 02/22/25 by Celeste Chong RN atorvastatin 40 mg PO DAILY blood sugar diagnostic (Accu-Chek Guide test strips) As directed 2 times per day blood-glucose meter TEST 2 TIMES DAILY blood-glucose meter (Accu-Chek Guide Glucose Meter) As directed cholecalciferol (vitamin D3) 1,000 units PO DAILY clotrimazole 1% 1 appl topical BID 2 weeks cyanocobalamin (vitamin B-12) 1,000 mcg PO DAILY diclofenac sodium 1% 2 grams topical QID esomeprazole magnesium (Nexium) 20 mg PO DAILY furosemide (Lasix) 80 mg PO BID 90 days glipizide 5 mg PO DAILY lancets (Accu-Chek Softclix Lancets) Use 1 Lancet once a day lancing device ACCU-CHECK DARLINE DEVICE lancing device (Adjustable Lancing Device) As directed lidocaine 5% 1 patch topical DAILY losartan-hydrochlorothiazide 100-25 mg 1 tab PO DAILY phenytoin sodium extended 200 mg (2 x 100 mg) PO BID 90 days potassium chloride ER 10 mEq PO BID tirzepatide (Mounjaro) 2.5 mg (0.5 mL) subcut QWEEK tirzepatide (Mounjaro) 5 mg (0.5 mL) subcut QWEEK tizanidine 4 mg PO Q8H PRN vitamins A,C,U-dzhw-owkymg (PreserVision AREDS) 159 % PO BID warfarin 5 mg See Protocol PO DAILY Nursing Note HAS BEEN ON MOUNJARO FOR 3 WEEKS AND HAS LOST 9 LBS. PT.DENIES ANY ADVERSE SX FROM THIS MED. NO CP,SOB,DIET/MED CHANGES,FALLS OR SX OF BLEEDING. CONTINUE 5MGM DAILY AND FOLLOW-UP IN 2 WEEKS GOOD UNDERSTANDING OF DOSING INSTR. Anti-Coag Initial Assessment Social Hx Patient Tobacco Use Status: Never used Tobacco Tobacco use type: Cigarette alcohol intake: current Alcohol intake frequency: holidays/special occasions only Coding Level of Care Code Est Patient Level 1 Diagnoses Current use of anticoagulant therapy Z79.01 Results AMB INR Fingerstick AMB INR Fingerstick 2.4 Last Edit by Celeste Chong RN on 02/22/25 10:58 Assessment & Plan Assessment & Plan (1) Current use of anticoagulant therapy: Code(s): Z79.01 - [facility] (current) use of 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
[2025-02-22 11:07] LABS: Prothrombin Time Whole Bld POC 29.3 sec (11.1-13.5); ~PT, ~INR - Anti Coag Clinic 2.4 (0.9-1.1)
--- OUTSIDE RECORDS SUMMARY | 2025-02-22 13:34 | XMS_ITS | Clinical Summary ---
Author Organization [facility] Address [address] [place] [address] Phone Care Team Providers Care Doubler Operator Name Role Phone Unavailable Primary Care [...] complete this topic Insurance [place] [address] MEDICAID - [place]
== END 2025-02-22 11:18 | disposition home or self-care (01) ==
LOC: HO.ACS 10:48
PROVIDERS: PCP Internal Medicine; Visit Provider Internal Medicine Medical Oncology
DX: Z79.01 Long term (current) use of anticoagulants (principal)

== ENCOUNTER → 2025-02-22 10:48 | Outpatient (BNVA) | payer MEDICARE, MEDICAID, SELFPAY | PROVIDERS: PCP Internal Medicine; Visit Provider Internal Medicine Medical Oncology | DX: N28.1 Cyst of kidney, acquired (principal); R33.9 Retention of urine, unspecified; Z86.718 Personal history of other venous thrombosis and embolism; Z79.01 Long term (current) use of anticoagulants; Z51.81 Encounter for therapeutic drug level monitoring | CPT/HCPCS: 85610; 99211; 99212 ==

== ENCOUNTER 2025-02-22 11:20 | Outpatient (AMB) | payer MEDICARE, SELFPAY ==
--- NOTE | 2025-02-22 11:21 | A.OFFVIS_ITS ---
Intake Visit Reasons: 3M/PVR Intake Note: Patient is present for 3M/PVR Urology Medication:VITAMIN B12,POTASSIUM CHLORIDE Antibiotic Allergy:NONE Blood Thinner:WARFARIN Last PVR:170ML'S Todays PVR:26ML'S General Manager Food Required: No Allergies shrimp (SHRIMP) Allergy (Mild, Verified 02/22/25 12:01) HIVES diltiazem Adverse Reaction (Severe, Uncoded 02/22/25 12:01) feet pain, swelling Medication List - Last Reconciled 02/22/25 by DIPIKA Gil atorvastatin 40 mg PO DAILY blood sugar diagnostic (Accu-Chek Guide test strips) As directed 2 times per day blood-glucose meter TEST 2 TIMES DAILY blood-glucose meter (Accu-Chek Guide Glucose Meter) As directed cholecalciferol (vitamin D3) 1,000 units PO DAILY clotrimazole 1% 1 appl topical BID 2 weeks cyanocobalamin (vitamin B-12) 1,000 mcg PO DAILY diclofenac sodium 1% 2 grams topical QID esomeprazole magnesium (Nexium) 20 mg PO DAILY furosemide (Lasix) 80 mg PO BID 90 days glipizide 5 mg PO DAILY lancets (Accu-Chek Softclix Lancets) Use 1 Lancet once a day lancing device ACCU-CHECK DARLINE DEVICE lancing device (Adjustable Lancing Device) As directed lidocaine 5% 1 patch topical DAILY losartan-hydrochlorothiazide 100-25 mg 1 tab PO DAILY phenytoin sodium extended 200 mg (2 x 100 mg) PO BID 90 days potassium chloride ER 10 mEq PO BID tirzepatide (Mounjaro) 2.5 mg (0.5 mL) subcut QWEEK tirzepatide (Mounjaro) 5 mg (0.5 mL) subcut QWEEK tizanidine 4 mg PO Q8H PRN vitamins A,C,T-ijxf-fcwexz (PreserVision AREDS) 159 % PO BID warfarin 5 mg See Protocol PO DAILY HPI Comments Details: Mary Jane is a very pleasant 79-year-old female patient of Dr. Patton. She has a past medical history of obesity, epilepsy, GERD, vitamin-D deficiency, hyperlipidemia, hypertension, diabetes, paroxysmal AFib, factor 5 Leiden, and DVT on anticoagulation. She presents to the office today for follow-up. Of note, patient was seen approximately 3 months ago as a new patient for renal cysts as well as incomplete bladder emptying at which time she was started on low-dose terazosin 1 mg at bedtime as PVR during initial visit 170 mL. In discussion with the patient today she reports to be doing and feeling well. She reports compliance with terazosin as prescribed however has recently ran out of refills. She discusses having recently followed up with weight management here and has lost over 10 lb intentionally in the last 6-8 weeks. She does have a report having seeked emergency room care earlier this week as she has been experiencing left-sided upper extremity discomfort and believes she pulled a muscle. Renal ultrasound 08/19 noted 2.5 cm in 2.3 cm simple right renal peripelvic cysts. Normal sonographic appearance of left kidney. Unable to obtain urine for urinalysis as patient unable to void however PVR 26ml's. She denies urinary urgency, urinary frequency, incontinence, nocturia, hematuria, dysuria, foul smelling urine, changes to urinary stream, flank pain, fever, and or chills. All questions were answered. She also discusses a previous history of recurrent urinary tract infections 2 years ago. We did discuss correlation of incomplete bladder emptying and recurrent urinary tract infections. We did discuss lifestyle modifications to assist with incomplete bladder emptying such as double voiding. All questions were answered. She otherwise offers no other issues or concerns at this time. A1c 11/18 5.9 [facility] Medical History BMI 37.0-37.9, adult Obesity Morbid obesity with BMI of 40.0-44.9, adult Epilepsy GERD without esophagitis Vitamin D deficiency Mixed hyperlipidemia Essential hypertension Diabetes mellitus PAF (paroxysmal atrial fibrillation) Atrial fibrillation Factor V Leiden DVT (deep venous thrombosis) Hyperlipidemia Hypertension Diabetes mellitus with coincident hypertension Surgical History History of lumpectomy of right breast History of appendectomy History of cholecystectomy Family History Father Asthma Mother Diabetes Hypertension Colon cancer Other Substance use disorder Social History Household Members: None Housing: Apartment Do you presently have visiting nurse or other home services: No Alcohol intake: current Alcohol intake frequency: holidays/special occasions only Patient Tobacco Use Status: Never used Tobacco Tobacco use type: Cigarette e-Cigarette/Vaping Use: Never Used Second Hand Smoke Exposure: No Advance Directives Date on File: 02/03/23 service: No Current occupational status: employed Cognitive needs: No Hearing needs: No Vision needs: No Review of Systems Eyes Reports no additional complaints ENT Reports no additional complaints Card Reports as per HPI Resp Reports no additional complaints GI Reports as per HPI Reports as per HPI Musc Reports no additional complaints Neuro Reports as per HPI Psych Reports no additional complaints Endo Reports as per HPI Physical Exam Const General: cooperative, comfortable, no acute distress, well developed, alert and awake Nutritional Appearance: overweight Orientation/consciousness: patient oriented x3 Limitations: no limitations HEENT Head: Yes normal to inspection, Yes normocephalic and Yes atraumatic Ears: hearing grossly normal bilaterally Eyes General: appearance normal, both eyes and all related structures Neck Neck: Yes normal visual inspection and Yes trachea midline Chest Chest palpation & inspection: normal inspection of the chest Resp Effort & Inspection: normal respiratory effort and able to speak in complete sentences Cardio Rate: regular rate GI Inspection: Yes normal to inspection General: Yes no CVA tenderness Back/Spine/Pelvis Back: no CVA tenderness Skin General skin exam: no rashes or lesions noted Neuro General: patient oriented x3 Extrem General: Yes normal to inspection Psych Appearance: grossly normal and well kempt Mental Status: mental status grossly normal Speech and movement: Normal speech and movement present and Clear speech present Affect: normal affect Attitude: cooperative Thought process: Normal thought process present Thought content: Normal thought content present Insight: Fair insight present (Psych) Judgement: Fair judgement present (Psych) Results AMB INR Fingerstick AMB INR Fingerstick 2.4 Last Edit by Celeste Chong RN on 02/22/25 10:58 Assessment & Plan Assessment & Plan (1) Renal cyst: Code(s): N28.1 - Cyst of kidney, acquired Category: Medical (2) Incomplete bladder emptying: Code(s): R33.9 - Retention of urine, unspecified Category: Medical Plan Unable to obtain urine for urinalysis as patient unable to void. PVR 26ml's We discussed potential causes of renal cysts as well as classifications. We discussed incomplete bladder emptying Discussed double voiding. Continue terazosin as discussed and prescribed; refill provided She denies any UTI like symptoms. We discussed obtaining bladder ultrasound; she would like to think about this. Will obtain renal ultrasound in 6 months We discussed importance of management and diabetes for overall health and well- being. Follow-up in 6 months with imaging and PVR; or sooner with any issues, concerns, and or questions. Orders: Orders US renal BI 6 Months N28.1 - Cyst of kidney, acquired Medications: Changed From terazosin 1 mg PO BEDTIME 30 days 30 caps 3RF R39.12 - Poor urinary stream To terazosin 1 mg PO BEDTIME 90 caps 2RF 90 days R39.12 - Poor urinary stream Patient Instructions: The patient had an opportunity to ask questions regarding the treatment plan. All questions were answered. Physical exam, labs, and imaging were discussed and reviewed in detail. As well as risks, benefits, and discussion of treatment choices. No major barriers to understanding were identified. The patient expressed understanding and agreement with the above treatment plan. The patient was made aware they should contact our office by phone for worsening of their current condition, the appearance of new symptoms, or with any questions or concerns. Compliance is encouraged with any medications and follow up testing that is ordered. It is a privilege to be allowed the opportunity to participate in? your urological care.? Again, if you have any questions or concerns If you have any questions or concerns please do not hesitate to contact me. The office is [phone]. This note is constructed using voice recognition software. While every effort has been made to ensure accuracy database reporting consultant errors may have been included. Yours sincerely, DIPIKA Gil Coding Level of Care Code Est Pt Level 3 (25100) Complex EM visit Add On G2211 Diagnoses Renal cyst N28.1 Incomplete bladder emptying R33.9
== END 2025-02-22 12:16 | disposition home or self-care (01) ==
LOC: HO.HUSH 11:21
PROVIDERS: PCP Internal Medicine; Visit Provider Nurse Practitioner Family
DX: N28.1 Cyst of kidney, acquired (principal); R33.9 Retention of urine, unspecified
CPT/HCPCS: 99213; G2211

== ENCOUNTER 2025-03-15 11:40 | Outpatient (AMB) | payer OTHER, MEDICAID, SELFPAY ==
--- NOTE | 2025-03-15 11:44 | HO.NEPHOV ---
Vital Signs 03/15/25 11:45 Height 5 ft 2 in Weight 215 lb 4 oz BMI 39.4 BP 130/70 Blood Pressure Location Lt brachial Position Sitting Pulse 75 Pulse Source Pulse Oximeter Pulse Oximetry (%) 98 Oxygen Delivery Method Room Air Intake Visit Reasons: 3mon f/u-Conf Couples Therapist Required: No Accompanied by: Self / Same As Patient Allergies shrimp (SHRIMP) Allergy (Mild, Verified 03/15/25 11:45) HIVES diltiazem Adverse Reaction (Severe, Uncoded 02/22/25 12:01) feet pain, swelling HPI Comments Details: 78-year-old lady with past medical history of hypertension, hyperlipidemia, diabetes mellitus, factor 5 Leiden mutation is here follow up of Hypokalemia, hypertension and renal cyst found on renal ultrasound 2.5 and 2.3 cm in size simple cyst of the right kidney. She had a CT scan done 8 months ago, and the kidneys were reported to be normal. Patient used to live in [place], moved here after has been step to take care of her brother. Hypertension: on lisinopril 40mg and Lasix increased to 80mg BID but taking once daily Hypokalemia since she is on lasix Still has swelling of bilateral lower extremities and her blood pressures are slightly on the higher side. Increased lasix to 40mg BID last visit but still taking once due to low potassium. [facility] Medical History BMI 37.0-37.9, adult Obesity Morbid obesity with BMI of 40.0-44.9, adult Epilepsy GERD without esophagitis Vitamin D deficiency Mixed hyperlipidemia Essential hypertension Diabetes mellitus PAF (paroxysmal atrial fibrillation) Atrial fibrillation Factor V Leiden DVT (deep venous thrombosis) Hyperlipidemia Hypertension Diabetes mellitus with coincident hypertension Surgical History History of lumpectomy of right breast History of appendectomy History of cholecystectomy Family History Father Asthma Mother Diabetes Hypertension Colon cancer Other Substance use disorder Social History Household Members: None Housing: Apartment Do you presently have visiting nurse or other home services: No Alcohol intake: current Alcohol intake frequency: holidays/special occasions only Patient Tobacco Use Status: Never used Tobacco Tobacco use type: Cigarette e-Cigarette/Vaping Use: Never Used Second Hand Smoke Exposure: No Advance Directives Date on File: 02/03/23 service: No Current occupational status: employed Cognitive needs: No Hearing needs: No Vision needs: No Review of Systems Const Details: Const : no body aches, no chills and no fatigue Eyes: no blurry vision and no change in vision ENT: no bleeding gums and no change in voice Card: no chest pain, no shortness of breath, no orthopnea, no PND Resp: no cough, no excessive phlegm production, no SOB GI: no abdominal pain and no nausea, no vomiting : no hematuria, no urinary frequency and no difficulty voiding Musc: no abnormal gait, no bone pain Neuro: no abnormal movements, no weakness, no dizziness, no abnormal gait and no behavioral changes Psych: no behavioral changes and no change in appetite Endo: no change in body appearance, no cold intolerance Physical Exam General: not in any acute distress, comfortable, sitting on the chair Nutritional Appearance: well nourished and overweight Eyes: normal position, no icterus Neck: No lymphadenopathy, no thyromegaly Resp: bilateral air entry equal, no added sounds present Cardio: normal S1, S2 heard, no murmur heard, no edema GI: soft, nontender, no guarding, no hepatosplenomegaly : bladder normal to inspection, bladder normal to palpation Skin: no rashes or lesions noted and elasticity normal Neuro: oriented to person, oriented to place, oriented to time and moves all extremities Results Reviewed Nephrology Results: Urine Protein, (Neg-Trace) Negative mg/dL 02/16/25 Renal US 08/12/24 Assessment & Plan Assessment & Plan (1) Hypertension: Code(s): I10 - Essential (primary) hypertension Category: Medical Qualifiers: Hypertension type: primary hypertension Qualified Code(s): I10 - Essential (primary) hypertension (2) Renal cyst: Code(s): N28.1 - Cyst of kidney, acquired Category: Medical (3) Hypokalemia: Code(s): E87.6 - Hypokalemia Category: Medical (4) 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 of other clotting factors Category: Medical Plan Renal cyst: Renal cysts are simple, 2.3 and 2.5 cm seen on ultrasound on We will repeat an imaging in 2025 Hypertension: On lisinopril 40 mg switch to losartan 100mg with HCTZ 25mg. We will increase the Lasix to 80 mg b.i.d. asked her to check her weight everyday and adjust lasix based on daily weight. Sent her a new prescription for 80mg BID. Asked her to cut down her fluid intake so she can loose some weight TTE in 01/2023 showed normal LV systolic function, moderate septal asymmertric hypertrophy. Will repeat TTE given her symptoms of PND. Advised to reduce weight, she has appointment at weight management clinic TSH 3.10, Hb A1c 5.9 Diabetes mellitus: on glipizide 5mg and mounjaro Hypokalemia: will get repeat BMP urine K and creatinine to calculate FeK. Morbid obesity: seeing weight management clinic on mounjaro, loosing weight 217lbs. Toe pain: uric acid levels normal 5.5 Factor V deficiency: on warfarin, INR okay will check INR. Orders: Orders Basic Metabolic Panel Today E87.6 - Hypokalemia, I10 - Essential (primary) hypertension Potassium Urine Random Today E87.6 - Hypokalemia, I10 - Essential (primary) hypertension Creatinine Urine Today E87.6 - Hypokalemia, I10 - Essential (primary) hypertension Prothrombin Time INR Today D68.2 - Hereditary deficiency of other clotting factors Potassium Urine Random 4 Months E87.6 - Hypokalemia, I10 - Essential (primary) hypertension Creatinine Urine 4 Months E87.6 - Hypokalemia, I10 - Essential (primary) hypertension CA echo transthoracic complete Today I10 - Essential (primary) hypertension, R06.00 - Dyspnea, unspecified Basic Metabolic Panel 4 Months E87.6 - Hypokalemia, I10 - Essential (primary) hypertension Magnesium 4 Months E87.6 - Hypokalemia, I10 - Essential (primary) hypertension Magnesium Today E87.6 - Hypokalemia Medications: New potassium chloride ER (Klor-Con M) 40 mEq (2 x 20 mEq) PO DAILY 180 tabs 3RF 90 days Coding Level of Care Code Est Pt Level 4 (27689) Diagnoses Primary hypertension I10 Hypertension type: primary hypertension Renal cyst N28.1 Hypokalemia E87.6 Factor V deficiency D68.2
[2025-03-15 11:45] VITALS: BP 130/70; PULSE 75; O2SAT 98; BMI 39.4
--- OUTSIDE RECORDS SUMMARY | 2025-03-15 22:48 | XMS_ITS | Clinical Summary ---
Author Organization [facility] Address [address] [place] [address] Phone Care Team Providers Care Career Services Manager Name Role Phone Unavailable Primary Care [...] Health Screening 05/26/2024 COVID-19 Vaccine ( - 2024-2 6 season) 2024 Influenza Vaccine (#1) 2024 HIB [...]
== END 2025-03-15 12:18 | disposition home or self-care (01) ==
LOC: HO.HKA 11:41
PROVIDERS: PCP Internal Medicine; Visit Provider Internal Medicine Critical Care Medicine
DX: I10 Essential (primary) hypertension (principal); N28.1 Cyst of kidney, acquired; E87.6 Hypokalemia; D68.2 Hereditary deficiency of other clotting factors
CPT/HCPCS: 99214

== ENCOUNTER 2025-03-15 12:23 | Outpatient (REF) | payer OTHER, MEDICAID, SELFPAY ==
[2025-03-15 13:37] LABS: INTERNATIONAL NORM RATIO 3.0 (0.9-1.1); Prothrombin Time 35.4 SEC (11.2-13.5)
[2025-03-15 15:38] LABS: Anion Gap 10 (12-20); Blood Urea Nitrogen 21 mg/dL (9-16); Calcium 9.2 mg/dL (8.4-10.2); Carbon Dioxide 31 mmol/L (22-29); Chloride 106 mmol/L (96-108); Estimated Glomerular Filt Rate > 60; Magnesium 2.1 mg/dL (1.6-2.6); Potassium 3.8 mmol/L (3.3-5.1); Sodium 143 mmol/L (135-145)
== END 2025-03-15 12:24 | disposition home or self-care (01) ==
LOC: HO.10HDL 12:23
PROVIDERS: Visit Provider Internal Medicine Critical Care Medicine
DX: I10 Essential (primary) hypertension (principal); E87.6 Hypokalemia; D68.2 Hereditary deficiency of other clotting factors
CPT/HCPCS: 36415; 80048; 82570; 83735; 84133; 85610

== ENCOUNTER → 2025-03-17 11:22 | Outpatient (BNVA) | payer OTHER, MEDICAID, SELFPAY | PROVIDERS: PCP Internal Medicine; Visit Provider Surgery | DX: Z79.01 Long term (current) use of anticoagulants (principal) | CPT/HCPCS: 85610; 99211 ==

== ENCOUNTER 2025-03-17 12:04 | Outpatient (AMB) | payer OTHER, MEDICAID, SELFPAY ==
--- NOTE | 2025-03-17 12:08 | MHC.OFFVISCO ---
Intake Intake Visit Reasons: Anticoagulation Allergies shrimp (SHRIMP) Allergy (Mild, Verified 03/17/25 12:04) HIVES diltiazem Adverse Reaction (Severe, Uncoded 03/17/25 12:04) feet pain, swelling Medication List - Last Reconciled 03/17/25 by Bhakti Baez RN atorvastatin 40 mg PO DAILY blood sugar diagnostic (Accu-Chek Guide test strips) As directed 2 times per day blood-glucose meter TEST 2 TIMES DAILY blood-glucose meter (Accu-Chek Guide Glucose Meter) As directed cholecalciferol (vitamin D3) 1,000 units PO DAILY clotrimazole 1% 1 appl topical BID 2 weeks cyanocobalamin (vitamin B-12) 1,000 mcg PO DAILY diclofenac sodium 1% 2 grams topical QID esomeprazole magnesium (Nexium) 20 mg PO DAILY furosemide (Lasix) 80 mg PO BID 90 days glipizide 5 mg PO DAILY lancets (Accu-Chek Softclix Lancets) Use 1 Lancet once a day lancing device ACCU-CHECK DARLINE DEVICE lancing device (Adjustable Lancing Device) As directed lidocaine 5% 1 patch topical DAILY losartan-hydrochlorothiazide 100-25 mg 1 tab PO DAILY phenytoin sodium extended 200 mg (2 x 100 mg) PO BID 90 days potassium chloride ER 10 mEq PO BID potassium chloride ER (Klor-Con M) 40 mEq (2 x 20 mEq) PO DAILY 90 days terazosin 1 mg PO BEDTIME 90 days tirzepatide (Mounjaro) 2.5 mg (0.5 mL) subcut QWEEK tirzepatide (Mounjaro) 5 mg (0.5 mL) subcut QWEEK tizanidine 4 mg PO Q8H PRN vitamins A,C,T-gxcm-plgdfe (PreserVision AREDS) 159 % PO BID warfarin 5 mg See Protocol PO DAILY Nursing Note INR 3.3-?? out of therapeutic range 2-3 Medications and supplements reviewed Patient status: pt finished antibiotics for 'redness' lower extrem L Medications or supplements: completed cephalexin yesterday Diet: eating less, taking protein drink 4 ounce tid and almond milk and protein bar Denies any signs and symptoms of bleeding or clotting or unusual bruising Bleeding, bruising, clotting discussed Nutritional guidance given: eat a green today Dose: 2.5mg today then cont 5mg x 7 F/U INR Date : 1 week? Patient verbalizing understanding of instructions given. 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
[2025-03-17 12:09] LABS: Prothrombin Time Whole Bld POC 39.2 sec (11.1-13.5); ~PT, ~INR - Anti Coag Clinic 3.3 (0.9-1.1)
== END 2025-03-17 12:14 | disposition home or self-care (01) ==
LOC: HO.ACS 12:04
PROVIDERS: PCP Internal Medicine; Visit Provider Internal Medicine Medical Oncology
DX: Z79.01 Long term (current) use of anticoagulants (principal)

== ENCOUNTER 2025-03-31 14:05 | Outpatient (AMB) | payer OTHER, MEDICAID, SELFPAY ==
--- NOTE | 2025-03-31 14:20 | MHC.OFFVISCO ---
Intake Intake Visit Reasons: Anticoagulation Allergies shrimp (SHRIMP) Allergy (Mild, Verified 03/31/25 14:05) HIVES diltiazem Adverse Reaction (Severe, Uncoded 03/31/25 14:05) feet pain, swelling Medication List - Last Reconciled 03/31/25 by Clover Granados, RN atorvastatin 40 mg PO DAILY blood sugar diagnostic (Accu-Chek Guide test strips) As directed 2 times per day blood-glucose meter TEST 2 TIMES DAILY blood-glucose meter (Accu-Chek Guide Glucose Meter) As directed cholecalciferol (vitamin D3) 1,000 units PO DAILY clotrimazole 1% 1 appl topical BID 2 weeks cyanocobalamin (vitamin B-12) 1,000 mcg PO DAILY diclofenac sodium 1% 2 grams topical QID esomeprazole magnesium (Nexium) 20 mg PO DAILY furosemide (Lasix) 80 mg PO BID 90 days glipizide 5 mg PO DAILY lancets (Accu-Chek Softclix Lancets) Use 1 Lancet once a day lancing device ACCU-CHECK DARLINE DEVICE lancing device (Adjustable Lancing Device) As directed lidocaine 5% 1 patch topical DAILY losartan-hydrochlorothiazide 100-25 mg 1 tab PO DAILY 90 days phenytoin sodium extended 200 mg (2 x 100 mg) PO BID 90 days potassium chloride ER 10 mEq PO BID potassium chloride ER (Klor-Con M) 40 mEq (2 x 20 mEq) PO DAILY 90 days terazosin 1 mg PO BEDTIME 90 days tirzepatide (Mounjaro) 2.5 mg (0.5 mL) subcut QWEEK tirzepatide (Mounjaro) 5 mg (0.5 mL) subcut QWEEK tirzepatide (Mounjaro) 7.5 mg (0.5 mL) subcut QWEEK tizanidine 4 mg PO Q8H PRN vitamins A,C,C-bhfo-kazxbb (PreserVision AREDS) 159 % PO BID warfarin 5 mg See Protocol PO DAILY Nursing Note INR: 2.9 in therapeutic range of 2-3 Medications and supplements reviewed No changes in health, diet, medications, or supplements, Denies any signs and symptoms of bleeding or bruising or clotting. Bleeding, bruising, clotting discussed Nutritional guidance given Dose: 5mg daily F/U INR: 2 weeks Patient verbalizes understanding of instructions given Anti-Coag Initial Assessment Social Hx Patient Tobacco Use Status: Never used Tobacco Tobacco use type: Cigarette alcohol intake: current Alcohol intake frequency: holidays/special occasions only Coding Level of Care Code Est Patient Level 1 Diagnoses Current use of anticoagulant therapy Z79.01 Results AMB INR Fingerstick AMB INR Fingerstick 2.9 Last Edit by Clover Granados RN on 03/31/25 14:16 interface delay Assessment & Plan Assessment & Plan (1) Current use of anticoagulant therapy: Code(s): Z79.01 - intermediate designer (current) use of 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
--- OUTSIDE RECORDS SUMMARY | 2025-03-31 18:17 | XMS_ITS | Clinical Summary ---
Author Organization [facility] Address [address] [place] [address] Phone Care Team Providers Care Bank Examiner Name Role Phone Unavailable Primary Care Provider [...]
[2025-04-03 08:45] LABS: Prothrombin Time Whole Bld POC 34.5 sec (11.1-13.5); ~PT, ~INR - Anti Coag Clinic 2.9 (0.9-1.1)
== END 2025-03-31 14:26 | disposition home or self-care (01) ==
LOC: HO.ACS 14:05
PROVIDERS: PCP Internal Medicine; Visit Provider Internal Medicine Medical Oncology
DX: Z79.01 Long term (current) use of anticoagulants (principal)

== ENCOUNTER → 2025-03-31 14:05 | Outpatient (BNVA) | payer OTHER, MEDICAID, SELFPAY | PROVIDERS: PCP Internal Medicine; Visit Provider Internal Medicine Medical Oncology | DX: Z86.718 Personal history of other venous thrombosis and embolism (principal); Z79.01 Long term (current) use of anticoagulants; Z51.81 Encounter for therapeutic drug level monitoring | CPT/HCPCS: 85610; 99211 ==

== ENCOUNTER 2025-04-14 12:59 | Outpatient (AMB) | payer OTHER, MEDICAID, SELFPAY ==
[2025-04-14 13:11] LABS: Prothrombin Time Whole Bld POC 34.4 sec (11.1-13.5); ~PT, ~INR - Anti Coag Clinic 2.9 (0.9-1.1)
--- NOTE | 2025-04-14 13:19 | MHC.OFFVISCO ---
Intake Intake Visit Reasons: Anticoagulation Allergies shrimp (SHRIMP) Allergy (Mild, Verified 04/14/25 13:03) HIVES diltiazem Adverse Reaction (Severe, Uncoded 04/14/25 13:03) feet pain, swelling Medication List - Last Reconciled 04/14/25 by Clover Granados, RN atorvastatin 40 mg PO DAILY blood sugar diagnostic (Accu-Chek Guide test strips) As directed 2 times per day blood-glucose meter TEST 2 TIMES DAILY blood-glucose meter (Accu-Chek Guide Glucose Meter) As directed cholecalciferol (vitamin D3) 1,000 units PO DAILY clotrimazole 1% 1 appl topical BID 2 weeks cyanocobalamin (vitamin B-12) 1,000 mcg PO DAILY diclofenac sodium 1% 2 grams topical QID esomeprazole magnesium (Nexium) 20 mg PO DAILY furosemide (Lasix) 80 mg PO BID 90 days glipizide 5 mg PO DAILY lancets (Accu-Chek Softclix Lancets) Use 1 Lancet once a day lancing device ACCU-CHECK DARLINE DEVICE lancing device (Adjustable Lancing Device) As directed lidocaine 5% 1 patch topical DAILY losartan-hydrochlorothiazide 100-25 mg 1 tab PO DAILY 90 days phenytoin sodium extended 200 mg (2 x 100 mg) PO BID 90 days potassium chloride ER 10 mEq PO BID potassium chloride ER (Klor-Con M) 40 mEq (2 x 20 mEq) PO DAILY 90 days terazosin 1 mg PO BEDTIME 90 days tirzepatide (Mounjaro) 2.5 mg (0.5 mL) subcut QWEEK tirzepatide (Mounjaro) 5 mg (0.5 mL) subcut QWEEK tirzepatide (Mounjaro) 7.5 mg (0.5 mL) subcut QWEEK tizanidine 4 mg PO Q8H PRN vitamins A,C,T-mgqk-gbdtwa (PreserVision AREDS) 159 % PO BID warfarin 5 mg See Protocol PO DAILY Nursing Note INR: 2.9 in therapeutic range of 2-3 Medications and supplements reviewed No changes in health, diet, medications, or supplements, Denies any signs and symptoms of bleeding or bruising or clotting. 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
--- OUTSIDE RECORDS SUMMARY | 2025-04-14 14:45 | XMS_ITS | Clinical Summary ---
Author Organization [facility] Address [address] [place] [address] Phone Care Team Providers Care Plastics Fabrication Supervisor Name Role Phone Unavailable Primary Care Provider [...]
== END 2025-04-14 13:24 | disposition home or self-care (01) ==
LOC: HO.ACS 12:59
PROVIDERS: PCP Internal Medicine; Visit Provider Internal Medicine Medical Oncology
DX: Z79.01 Long term (current) use of anticoagulants (principal)

== ENCOUNTER → 2025-04-14 12:59 | Outpatient (BNVA) | payer OTHER, MEDICAID, SELFPAY | PROVIDERS: PCP Internal Medicine; Visit Provider Internal Medicine Medical Oncology | DX: Z86.718 Personal history of other venous thrombosis and embolism (principal); Z51.81 Encounter for therapeutic drug level monitoring; Z79.01 Long term (current) use of anticoagulants | CPT/HCPCS: 85610; 99211 ==